=== PATIENT | female | born 1950 | race Caucasian/White ===

== ENCOUNTER → 2016-07-15 | Outpatient (CLI) | payer BC, OTHER ==
[~2016-07-15] MED LIST: ADVIN25/60 INH; AGG PO; ALBUAER19 INH; ALL180 PO; ATEN50TA8 PO; CLB/200 PO; CRS/10 PO; ESCI1TAB10 PO; EZET10TA47 PO; FLNIN NAE; GLC500 PO; INSDGI SQ; IPRA0.03 NAE; LEVO75TA36 PO; LIOT5TAB PO; LOSA100T2 PO; MONT1TAB3 PO; MULTTAB5 PO; NITR1CAP33 PO; NVLGI SC; PRLSR20 PO; SITA1TAB27 PO; SPIR50TA2 PO; TIOTCAP INH
[2016-07-15 12:37] LABS: HEMATOCRIT 38.2 % (37-47); MEAN CELL VOLUME 87.2 fL (80-100); MEAN CORPUSCULAR HEMOGLOBIN 27.2 pg (25-34); MEAN CORPUSCULAR HGB CONC 31.2 g/dl (32-36); MEAN PLATELET VOLUME 10.2 fL (7.4-10.4); PLATELET COUNT 118 K/uL (130-400); RED BLOOD COUNT 4.38 M/uL (4.2-5.4); WHITE BLOOD COUNT 5.57 K/uL (4.8-10.8)
[2016-07-15 13:11] LABS: ESTIMATED AVERAGE GLUCOSE 209 mg/dl; HA1C FLAG Normal (Normal)
[2016-07-15 13:22] LABS: CALCIUM 9.4 mg/dl (8.5-10.1)
[2016-07-15 13:27] LABS: BLOOD UREA NITROGEN 34 mg/dl (7-18); BUN/CREATININE RATIO 20.2 (10-20); CARBON DIOXIDE 27 mmol/L (21-32); CHLORIDE 106 mmol/L (98-107); GLUCOSE 87 mg/dl (70-99); POTASSIUM 4.7 mmol/L (3.5-5.1); SODIUM 141 mmol/L (136-145)
[2016-07-15 13:28] LABS: PHOSPHORUS 3.4 mg/dl (2.5-4.9)
[2016-07-15 14:59] LABS: URINE APPEARANCE CLEAR (CLEAR); URINE BILIRUBIN NEG (NEG); URINE COLOR YELLOW; URINE NITRITE NEG (NEG); URINE PH 5.5 (4.5-7.5); URINE SPECIFIC GRAVITY 1.017 (1.000-1.030); UROBILINOGEN NEG (NEG)
[2016-07-15 15:14] LABS: MANUAL MICROSCOPIC REQUIRED? NO; REVIEW REQ? NO
[2016-07-15 15:26] LABS: URINE PROTIEN/CREAT RATIO 0.2 (0-0.2); URINE TOTAL PROTEIN 19.3 mg/dl (0-11.9)
== END | disposition home or self-care (01) ==
LOC: C.LAB1850 11:25
PROVIDERS: ATTEND Nurse Practitioner Adult Health
DX: E11.29 Type 2 diabetes mellitus with other diabetic kidney complication (principal)

== ENCOUNTER → 2016-08-02 | Outpatient (CLI) | payer OTHER ==
--- NOTE | 2016-08-02 08:00 | MAMMOGRAPHY REPORT ---
BILATERAL DIGITAL SCREENING MAMMOGRAM WITH CAD: 08/02/2016 TECHNIQUE: Current study was also evaluated with a Computer Aided Detection (CAD) system. Bilateral CC and MLO views were obtained. COMPARISON: Comparison is made to exams dated: 08/08/2015 mammogram, 08/08/2015 ultrasound, 08/01/2015 mammogram, 07/28/2014 mammogram, 07/26/2013 mammogram, and 07/22/2012 mammogram - [facility]. BREAST COMPOSITION: The tissue of both breasts is heterogeneously dense, which may obscure small mas ses. FINDINGS: No suspicious masses, calcifications, or areas of architectural distortion are noted in ei ther breast. There has been no significant interval change compared to prior exams. Bilateral benign -appearing calcifications are not significantly changed. IMPRESSION: ACR BI-RADS CATEGORY 2: BENIGN There is no mammographic evidence of malignancy. A 1 year screening mammogram is recommended. The pa tient will receive written notification of the results. Approximately 10% of breast cancers are not detected with mammography. A negative mammographic report should not delay biopsy if a clinically suggestive mass is present. Felisha Oliveira M.D. /:08/02/2016 07:50:21 Sponge Diver: Kimberly BERNARD(Yesy)(M), [facility] letter sent: Normal 1/2 BI-RADS Code: ACR BI-RADS Category 2: Benign
== END | disposition home or self-care (01) ==
LOC: C.MAMM 07:27
PROVIDERS: ATTEND Family Medicine
DX: Z12.31 Encounter for screening mammogram for malignant neoplasm of breast (principal)

== ENCOUNTER → 2016-11-07 | Outpatient (CLI) | payer OTHER ==
[2016-11-07 17:59] LABS: MEAN CELL VOLUME 83.1 fL (80-100); MEAN CORPUSCULAR HEMOGLOBIN 25.7 pg (25-34); MEAN CORPUSCULAR HGB CONC 30.9 g/dl (32-36); MEAN PLATELET VOLUME 10.1 fL (7.4-10.4); PLATELET COUNT 127 K/uL (130-400); RED BLOOD COUNT 3.97 M/uL (4.2-5.4)
[2016-11-07 18:01] LABS: PARTIAL THROMBOPLASTIN RATIO 1.1
[2016-11-07 18:19] LABS: ALT/SGPT 35 U/L (12-78); AST/SGOT 34 U/L (15-37); BLOOD UREA NITROGEN 39 mg/dl (7-18); BUN/CREATININE RATIO 17.8 (10-20); CALCIUM 8.4 mg/dl (8.5-10.1); CARBON DIOXIDE 20 mmol/L (21-32); CHLORIDE 105 mmol/L (98-107); CHOLESTEROL 116 mg/dl (0-200); POTASSIUM 4.9 mmol/L (3.5-5.1); SODIUM 136 mmol/L (136-145)
[2016-11-07 18:20] LABS: URINE APPEARANCE CLEAR (CLEAR); URINE BILIRUBIN NEG (NEG); URINE EPITHELIAL CELL AUTO 20-30 /lpf (0-5); URINE NITRITE NEG (NEG); URINE SPECIFIC GRAVITY 1.019 (1.000-1.030); UROBILINOGEN NEG (NEG)
[2016-11-07 18:27] LABS: MANUAL MICROSCOPIC REQUIRED? NO; REVIEW REQ? NO
[2016-11-07 18:29] LABS: CHOLESTEROL/HDL RATIO 3.6; HDL CHOLESTEROL 32 mg/dl; LDL CHOLESTEROL CALCULATED 21 mg/dl; TRIGLYCERIDES 313 mg/dl (0-150); VERY LOW DENSITY LIPOPROT CALC 63 mg/dl
[2016-11-11 09:58] LABS: PROTHROMBIN TIME (PATIENT) 10.9 SECONDS (9.0-12.0)
[2016-11-11 09:59] LABS: URINE COLOR DK YELLOW; WHITE BLOOD COUNT 6.13 K/uL (4.8-10.8)
[2016-11-11 10:00] LABS: GLUCOSE 168 mg/dl (70-99)
== END | disposition home or self-care (01) ==
LOC: C.LABMFLN 14:13
PROVIDERS: ATTEND Internal Medicine Cardiovascular Disease
DX: E03.9 Hypothyroidism, unspecified (principal); K76.0 Fatty (change of) liver, not elsewhere classified; E11.29 Type 2 diabetes mellitus with other diabetic kidney complication; Z79.4 Long term (current) use of insulin; I25.10 Atherosclerotic heart disease of native coronary artery without angina pectoris; I20.8 Other forms of angina pectoris; R07.9 Chest pain, unspecified; N18.3 Chronic kidney disease, stage 3 (moderate)

== ENCOUNTER → 2016-11-12 | Outpatient (CLI) | payer OTHER ==
--- NOTE | 2016-11-12 11:43 | DIAGNOSTIC IMAGING REPORT ---
Right knee 3 views CLINICAL HISTORY: Right knee pain COMPARISON STUDY: None. FINDINGS: No fracture or dislocation. No significant knee effusion. Soft tissues are within normal limits. Moderate osteoarthritis at the medial compartment and mild osteoarthritis at the lateral compartment. Severe osteoarthritis at the patellofemoral compartment. IMPRESSION: No fracture or dislocation within the right knee. Tricompartmental osteoarthritis as described above. Electronically signed by: Oskar Walsh M.D. 11/12/2016 11:42 AM Dictated Date/Time: 11/12/2016 11:40 AM
--- NOTE | 2016-11-17 10:10 | CODING QUERY NO DIAGNOSIS ---
TREATMENT RENDERED WITHOUT A DIAGNOSIS To promote full compliance with coding requirements relating to patient care, physician participation is requested in all cases of insurance coder uncertainty. Please assist us with providing a diagnosis/symptom for the test(s) below: A diagnosis/symptom was not documented on your Order. A valid diagnosis/symptom is required to bill all insurances. Please remember that we are unable to code a diagnosis of rule out, probable, possible, questionable, or suspected. Tests that require a diagnosis: * X-RAY KNEE DIAGNOSIS: * DOS: 11/12/16 Provider Signature: Date: Thank you Josie Dias Health Information Management Once completed, please kindly fax back to [phone] For questions please call [phone]
== END | disposition home or self-care (01) ==
LOC: C.RAD 10:58
PROVIDERS: ATTEND Nurse Practitioner Adult Health
DX: M25.569 Pain in unspecified knee (principal); W19.XXXA Unspecified fall, initial encounter

== ENCOUNTER → 2016-11-13 | Outpatient (CLI) | payer OTHER ==
[2016-11-13 18:00] LABS: BLOOD UREA NITROGEN 25 mg/dl (7-18); BUN/CREATININE RATIO 17.6 (10-20); CALCIUM 8.6 mg/dl (8.5-10.1); CARBON DIOXIDE 27 mmol/L (21-32); CHLORIDE 107 mmol/L (98-107); GLUCOSE 115 mg/dl (70-99); POTASSIUM 4.7 mmol/L (3.5-5.1); SODIUM 140 mmol/L (136-145)
== END ==
LOC: C.LABMFLN 13:01
PROVIDERS: ATTEND Nurse Practitioner Adult Health
DX: I12.9 Hypertensive chronic kidney disease with stage 1 through stage 4 chronic kidney disease, or unspecified chronic kidney disease (principal); N18.3 Chronic kidney disease, stage 3 (moderate)

== ENCOUNTER → 2016-11-21 | Outpatient (CLI) | payer OTHER ==
[2016-11-21 17:50] LABS: HEMATOCRIT 33.8 % (37-47); MEAN CELL VOLUME 82.4 fL (80-100); MEAN CORPUSCULAR HEMOGLOBIN 26.3 pg (25-34); MEAN PLATELET VOLUME 10.3 fL (7.4-10.4); PLATELET COUNT 116 K/uL (130-400); WHITE BLOOD COUNT 3.76 K/uL (4.8-10.8)
[2016-11-21 18:40] LABS: TOTAL IRON BINDING CAPACITY 447 mcg/dl (250-450)
== END | disposition home or self-care (01) ==
LOC: C.LABMFLN 11:57
PROVIDERS: ATTEND Internal Medicine Cardiovascular Disease
DX: D64.9 Anemia, unspecified (principal)

== ENCOUNTER → 2016-11-22 | Outpatient (CLI) | payer OTHER ==
[~2016-11-22] MED LIST changes: +REGADENOSON 0.4 MG/5 ML SYR ONE
--- NOTE | 2016-11-22 17:32 | Myocardial Perfusion Study ---
Myocardial Perfusion Study Rpt Myocardial Perfusion Study Rpt Date of Service 11/22/16 Myocardial Perfusion Study Rpt Procedure: 1. Myocardial perfusion study performed in multiple views/images 2. Lexiscan pharmacologic stress ECG Indications: 1. CAD 2. ANGINA Consent: Informed written consent was obtained prior to the procedure. Ordering physician: Dr. Bennett Procedural details: For the stress portion of the study, Lexiscan 0.4 mg was intravenously administered followed by a saline flush. This was followed by 31.3 mCi of technetium 99m Cardiolite, injected at 1:30 p.m. on 11/22/2016. 30 minutes following the injection, imaging of the heart was performed in multiple projections. For the rest portion of the study, 10.9 mCi technetium 99m Cardiolite was injected intravenously at 11:30 a.m. on 11/22/2016. 1 hour following the injection, imaging of the heart was performed in the same projections. Lexiscan stress ECG: Resting ECG demonstrated: Sinus rhythm with sinus arrhythmia 63 bpm. Maximum heart rate: 82 bpm Resting blood pressure: 126/60 mmHg Maximum blood pressure: 126/60 mmHg Maximal, age-predicted heart rate: 52 % Significant ST changes: None Arrhythmia: None Symptoms: Chest pain Findings: Rotating raw imaging demonstrated no significant lung uptake. There is no significant motion artifact. Heart size appeared normal. Myocardial perfusion demonstrated small area of mildly reduced uptake involving the distal anteroseptum which appeared to be fixed in post stress and rest imaging. There were no significant reversible defects noted to suggest ischemia. Ejection fraction: 65 % Wall motion: Normal No significant transient ischemic dilation. Impression: 1. No ischemic changes were noted. 2. Small distal anteroseptal fixed defect may represent small infarct. Wall motion appeared normal and thus cannot rule out attenuation artifact. 3. Normal left ventricular systolic function. EF 65%. 4. No arrhythmia. 5. Lexiscan induced chest pain. 6. Nondiagnostic Lexiscan ECG.
== END | disposition home or self-care (01) ==
LOC: C.NUCL 10:55
PROVIDERS: ATTEND Internal Medicine Cardiovascular Disease
DX: I20.8 Other forms of angina pectoris (principal); I25.10 Atherosclerotic heart disease of native coronary artery without angina pectoris

== ENCOUNTER → 2016-11-27 | Outpatient (CLI) | payer OTHER ==
[~2016-11-27] MED LIST changes: -REGADENOSON 0.4 MG/5 ML SYR ONE
[2016-11-27 17:57] LABS: BLOOD UREA NITROGEN 22 mg/dl (7-18); CALCIUM 8.7 mg/dl (8.5-10.1); CARBON DIOXIDE 23 mmol/L (21-32); CHLORIDE 112 mmol/L (98-107); CREATININE 1.54 mg/dl (0.60-1.20); GLUCOSE 169 mg/dl (70-99); POTASSIUM 4.8 mmol/L (3.5-5.1); SODIUM 142 mmol/L (136-145)
[2016-11-27 17:58] LABS: PHOSPHORUS 3.4 mg/dl (2.5-4.9)
== END | disposition home or self-care (01) ==
LOC: C.LABMFLN 12:23
PROVIDERS: ATTEND Internal Medicine Nephrology
DX: N17.9 Acute kidney failure, unspecified (principal)

== ENCOUNTER → 2016-12-23 | Outpatient (CLI) | payer OTHER ==
[2016-12-23 18:29] LABS: BLOOD UREA NITROGEN 20 mg/dl (7-18); BUN/CREATININE RATIO 13.9 (10-20); CALCIUM 8.9 mg/dl (8.5-10.1); CARBON DIOXIDE 27 mmol/L (21-32); CHLORIDE 106 mmol/L (98-107); CREATININE 1.45 mg/dl (0.60-1.20); GLUCOSE 123 mg/dl (70-99); POTASSIUM 4.1 mmol/L (3.5-5.1); SODIUM 143 mmol/L (136-145)
[2016-12-23 18:30] LABS: PHOSPHORUS 3.7 mg/dl (2.5-4.9)
== END | disposition home or self-care (01) ==
LOC: C.LABMFLN 14:42
PROVIDERS: ATTEND Internal Medicine Nephrology
DX: N18.3 Chronic kidney disease, stage 3 (moderate) (principal)

== ENCOUNTER → 2017-01-13 | Outpatient (CLI) | payer OTHER ==
[2017-01-13 12:59] LABS: URINE APPEARANCE CLEAR (CLEAR); URINE BILIRUBIN NEG (NEG); URINE COLOR YELLOW; URINE NITRITE NEG (NEG); URINE SPECIFIC GRAVITY 1.016 (1.000-1.030); UROBILINOGEN NEG (NEG)
[2017-01-13 13:09] LABS: MANUAL MICROSCOPIC REQUIRED? NO; REVIEW REQ? NO
[2017-01-13 13:17] LABS: BLOOD UREA NITROGEN 35 mg/dl (7-18); BUN/CREATININE RATIO 21.7 (10-20); CALCIUM 9.3 mg/dl (8.5-10.1); CARBON DIOXIDE 27 mmol/L (21-32); CHLORIDE 105 mmol/L (98-107); CREATININE 1.63 mg/dl (0.60-1.20); GLUCOSE 115 mg/dl (70-99); PHOSPHORUS 3.5 mg/dl (2.5-4.9); POTASSIUM 4.9 mmol/L (3.5-5.1); SODIUM 138 mmol/L (136-145)
[2017-01-13 13:55] LABS: URINE PROTIEN/CREAT RATIO 0.3 (0-0.2); URINE TOTAL PROTEIN 26.5 mg/dl (0-11.9)
== END | disposition home or self-care (01) ==
LOC: C.LABMFLN 10:16
PROVIDERS: ATTEND Internal Medicine Nephrology
DX: N18.3 Chronic kidney disease, stage 3 (moderate) (principal)

== ENCOUNTER → 2017-01-15 | Outpatient (CLI) | payer OTHER ==
--- NOTE | 2017-01-15 13:24 | DIAGNOSTIC IMAGING REPORT ---
NUCLEAR GASTRIC EMPTYING STUDY: CLINICAL HISTORY: K31.84 [id number] COMPARISON STUDY: None TECHNIQUE: Following the oral administration of 1.1 mCi of technetium 99m sulfur colloid in egg sandwich and 8 ounces of water, static abdominal images are performed anteriorly and posteriorly at 0 minutes, 1 hour, 2 hours, and 4 hour time intervals. Gastric emptying was calculated utilizing the geometric mean method. FINDINGS: There is approximately 78 % gastric activity remaining at the 1 hour time interval, 48 % at the 2 hour time interval (normal is less than 60%), and 8 % remaining at the 4 hour time interval (normal is less than 10%). These findings are consistent with a normal study IMPRESSION: Findings are consistent with a normal study Electronically signed by: Adam Montoya M.D. 01/15/2017 1:23 PM Dictated Date/Time: 01/15/2017 1:22 PM
== END | disposition home or self-care (01) ==
LOC: C.NUCL 08:32
PROVIDERS: ATTEND Physician Assistant
DX: K31.84 Gastroparesis (principal)

== ENCOUNTER → 2017-03-05 | Day surgery (SDC) | payer OTHER ==
[2017-01-20 08:56] VITALS: BMI 38.0
[~2017-03-05] VITALS: Ht 157.5 cm; Wt 95.9 kg
[~2017-03-05] MED LIST changes: -ADVIN25/60 INH; +ALBUAER INH; -ALBUAER19 INH; -ALL180 PO; +ATEN-173 PO; -ATEN50TA8 PO; +CALC-354 PO; -CLB/200 PO; -CRS/10 PO; +CYAN10005 PO; +CYCL0.052 OPB; -FLNIN NAE; +GABA-113 PO; -GLC500 PO; -INSDGI SQ; +INSPMPNVLG; +ISOS60TA25 PO; +LEVA1.258 INH; -LEVO75TA36 PO; +LEVO88TA3 PO; +LIDOCAINE HCL 2% 2 ML VIAL (20MG/ML) ONE; -LIOT5TAB PO; -LOSA100T2 PO; +LOSA50TA36 PO; +MIDAZOLAM HCL 1 MG/ML 2ML VIAL ONE; -MULTTAB5 PO; +NTRGSL/4 UT; -NVLGI SC; +OMEP40CA41 PO; +ONDANSETRON INJ 2 MG/ML 2 ML VIAL ONE; -PRLSR20 PO; +PROPOFOL IV EMULSION 10 MG/ML 20 ML VIAL IV ONE; +ROSU40TA PO; -SITA1TAB27 PO; +SODIUM CHLORIDE 0.9% 500ML 500 ML IV ONE; +SPRIN/30 INH; +SYMIN160 INH; -TIOTCAP INH; +TRAM-10 PO; +TRAZ50TA35 PO
[2017-03-05 11:33] VITALS: Ht 157.5 cm; Wt 95.9 kg
--- NOTE | 2017-03-05 11:53 | Endo History and Physical ---
History & Physical Date of Service: Mar 05, 2017. Chief Complaint: GASTROPARESIS Referring Physician: History of Present Illness 67 yo CF who presents for EGD secondary to Gastroparesis and epigastric abdominal pain. Past Medical History Diabetes, Angioplasty/Stent, Asthma, ASHD, Gastrointestinal Disorder, High Cholesterol, Sleep Apnea, CABG, Heart Disease, Hypertension, Valve Replacement Past Surgical History Hx Internal Defibrillator: No Hx Pacemaker: No Hx Abdominal Surgery: No Hx of Implantable Prosthesis: No Hx Post-Op Nausea and Vomiting: Yes (WITH GA) Hx Cancer Surgery: No Hx Thoracic Surgery: No Hx Orthopedic: Yes (LT TKA, LT/RT CTR) Hx Urinary Tract Surgery: No Family History None Social History Smoking Status: Never Smoker Hx Substance Use: No Hx Alcohol Use: No Allergies Coded Allergies: Levofloxacin (Verified Allergy, Intermediate, rash, 01/20/17) Enalapril (Verified Allergy, Unknown, DRY COUGH, 03/05/17) Insulin Detemir (Verified Allergy, Unknown, HIVES, 03/05/17) Phenol (Verified Allergy, Unknown, HIVES, 03/05/17) Ketorolac Tromethamine (Verified Adverse Reaction, Intermediate, nausea/ vomiting, 03/05/17) Current Medications Reported Home Medications Medications Dose Route/Sig Max Daily Dose Days Date Category Dose Instructions Restasis (Cyclosporine (Ophth)) 0.05 % Emu 1 Drop OPB BID 01/20/17 Reported Vitamin B-12 (Cyanocobalamin) 1,000 Mcg Tab 1,000 Mcg PO QAM 01/20/17 Reported Trazodone (Trazodone HCl) 50 Mg Tab 0.5 Tab PO HS 01/20/17 Reported Ultram (Tramadol HCl) 50 Mg Tab 50 Mg PO Q4H PRN 01/20/17 Reported Symbicort 160/4.5 Inhaler (Budesonide/Formoterol Fumarate) Aero 2 Puffs INH BID 01/20/17 Reported Spiriva Handihaler (Tiotropium [place]) 30 Puff/540 Mcg Aerp 1 Cap INH QAM 01/20/17 Reported Proventil Hfa (Albuterol Sulfate) 108 Mcg/Act Aer 1-2 Puffs INH Q4-6H PRN 01/20/17 Reported Prilosec (Omeprazole) 40 Mg Cap 40 Mg PO QAM 01/20/17 Reported novoLOG INSULIN PUMP (Insulin Aspart) 1 Ea Inj 1 Ea N/A UD 01/20/17 Reported Nitrostat (Nitroglycerin) 0.4 Mg Tab 0.4 Mg UT UD PRN 01/20/17 Reported Levothyroxine Sodium 88 Mcg Tab 1 Tab PO QAM 01/20/17 Reported Levalbuterol Hcl 1.25 Mg/3 Ml Neb 1 Dose INH TID 01/20/17 Reported Imdur Ext Rel (Isosorbide Mononitrate) 60 Mg Ertab 60 Mg PO QAM 01/20/17 Reported Neurontin (Gabapentin) 300 Mg Cap 300 Mg PO TID 01/20/17 Reported Caltrate 600+D (Calcium Carbonate-Cholecalcife) 1 Tab Tab 1 Tab PO QAM 01/20/17 Reported Losartan Potassium/Hydroc (Losartan Potassium & Hydrochlo) 1 Tab Tab 0.5 Tab PO QAM 01/20/17 Reported 100MG/12.5MG Crestor (Rosuvastatin Calcium) 40 Mg Tab 40 Mg PO QAM 01/20/17 Reported Tenormin (Atenolol) 25 Mg Tab 25 Mg PO QAM 01/20/17 Reported Zetia (Ezetimibe) 10 Mg Tab 10 Mg PO QAM 07/20/13 Reported Macrodantin (Nitrofurantoin Macrocrystals) 50 Mg Cap 50 Mg PO QAM 10/31/12 Reported Ipratropium [place] (Ipratropium [place] (Nasal)) 0.03 % Spr 1 [place] GARIMA ACHS PRN 10/31/12 Reported Lexapro (Escitalopram Oxalate) 20 Mg Tab 0.5 Tab PO QPM 10/31/12 Reported Aggrenox 200MG/25MG (Aspirin-Dipyridamole 25MG/200MG) 1 Cap Cap 1 Cap PO BID 10/31/12 Reported Singulair (Montelukast Sodium) 10 Mg Tab 10 Mg PO QAM 10/31/12 Reported Aldactone (Spironolactone) 50 Mg Tab 50 Mg PO AM 05/08/06 Reported Vital Signs Weight (Kilograms): 95.91 Height (Feet): 5 Height (Inches): 2 Date Time Temp Pulse Resp B/P (MAP) Pulse Ox O2 Delivery O2 Flow Rate FiO2 03/05/17 11:45 36.8 56 20 151/69 (96) 97 Room Air Physical Exam General Appearance: WD/WN, no apparent distress Respiratory/Chest: Auscultation: breath sounds normal Cardiovascular: Heart Auscultation: RRR Abdomen: Bowel Sounds: normal Inspection & Palpation: soft, non-distended, no tenderness, guarding & rebound Assessment and Plan Assessment: 67 yo CF who presents for EGD secondary to Gastroparesis and epigastric abdominal pain. Plan: Proceed with EGD.
--- NOTE | 2017-03-05 12:17 | GI REPORT ---
Procedure Date: 03/05/2017 12:00 PM Procedure: Upper GI endoscopy Indications: Epigastric abdominal pain, Gastroparesis Medicines: Monitored Anesthesia Care Complications: No immediate complications. Estimated Blood Loss: Estimated blood loss: none. Procedure: Pre-Anesthesia Assessment: - Prior to the procedure, a History and Physical was performed, and patient medications and allergies were reviewed. The patient's tolerance of previous anesthesia was also reviewed. The risks and benefits of the procedure and the sedation options and risks were discussed with the patient. All questions were answered, and informed consent was obtained. Prior Anticoagulants: The patient has taken aspirin, last dose was 3 days prior to procedure. ASA Grade Assessment: III - A patient with severe systemic disease. After reviewing the risks and benefits, the patient was deemed in satisfactory condition to undergo the procedure. After obtaining informed consent, the endoscope was passed under direct vision. Throughout the procedure, the patient's blood pressure, pulse, and oxygen saturations were monitored continuously. The scope was introduced through the mouth, and advanced to the second part of duodenum. The upper GI endoscopy was accomplished without difficulty. The patient tolerated the procedure well. Findings: The esophagus was normal. Localized mild inflammation characterized by erythema was found in the gastric antrum. Biopsies were taken with a cold forceps for histology. The examined duodenum was normal. Impression: - Normal esophagus. - Gastritis. Biopsied. - Normal examined duodenum. Recommendation: - Resume previous diet. - Continue present medications. - Await pathology results. - Return to primary care physician as previously scheduled. Da Polk, DO 03/05/2017 12:17:13 PM This report has been signed electronically. Note Initiated On: 03/05/2017 12:00 PM I attest to the content of the Intraoperative Record and orders documented therein, exceptions below
--- NOTE | 2017-03-05 12:18 | Discharge Instructions ---
Endoscopy Patient Instructions Date / Procedure(s) Performed Mar 05, 2017. EGD Allergy Information Coded Allergies: Levofloxacin (Verified Allergy, Intermediate, rash, 01/20/17) Enalapril (Verified Allergy, Unknown, DRY COUGH, 03/05/17) Insulin Detemir (Verified Allergy, Unknown, HIVES, 03/05/17) Phenol (Verified Allergy, Unknown, HIVES, 03/05/17) Ketorolac Tromethamine (Verified Adverse Reaction, Intermediate, nausea/ vomiting, 03/05/17) Discharge Date / Findings Mar 05, 2017. Gastritis s/p biopsies Medication Instructions Stopped Medication(s): ONLY TOOK BP PILLS OK to resume all medications today as prescribed Reported Home Medications Medications Dose Route/Sig Max Daily Dose Days Date Category Dose Instructions Restasis (Cyclosporine (Ophth)) 0.05 % Emu 1 Drop OPB BID 01/20/17 Reported Vitamin B-12 (Cyanocobalamin) 1,000 Mcg Tab 1,000 Mcg PO QAM 01/20/17 Reported Trazodone (Trazodone HCl) 50 Mg Tab 0.5 Tab PO HS 01/20/17 Reported Ultram (Tramadol HCl) 50 Mg Tab 50 Mg PO Q4H PRN 01/20/17 Reported Symbicort 160/4.5 Inhaler (Budesonide/Formoterol Fumarate) Aero 2 Puffs INH BID 01/20/17 Reported Spiriva Handihaler (Tiotropium [place]) 30 Puff/540 Mcg Aerp 1 Cap INH QAM 01/20/17 Reported Proventil Hfa (Albuterol Sulfate) 108 Mcg/Act Aer 1-2 Puffs INH Q4-6H PRN 01/20/17 Reported Prilosec (Omeprazole) 40 Mg Cap 40 Mg PO QAM 01/20/17 Reported novoLOG INSULIN PUMP (Insulin Aspart) 1 Ea Inj 1 Ea N/A UD 01/20/17 Reported Nitrostat (Nitroglycerin) 0.4 Mg Tab 0.4 Mg UT UD PRN 01/20/17 Reported Levothyroxine Sodium 88 Mcg Tab 1 Tab PO QAM 01/20/17 Reported Levalbuterol Hcl 1.25 Mg/3 Ml Neb 1 Dose INH TID 01/20/17 Reported Imdur Ext Rel (Isosorbide Mononitrate) 60 Mg Ertab 60 Mg PO QAM 01/20/17 Reported Neurontin (Gabapentin) 300 Mg Cap 300 Mg PO TID 01/20/17 Reported Caltrate 600+D (Calcium Carbonate-Cholecalcife) 1 Tab Tab 1 Tab PO QAM 01/20/17 Reported Losartan Potassium/Hydroc (Losartan Potassium & Hydrochlo) 1 Tab Tab 0.5 Tab PO QAM 01/20/17 Reported 100MG/12.5MG Crestor (Rosuvastatin Calcium) 40 Mg Tab 40 Mg PO QAM 01/20/17 Reported Tenormin (Atenolol) 25 Mg Tab 25 Mg PO QAM 01/20/17 Reported Zetia (Ezetimibe) 10 Mg Tab 10 Mg PO QAM 07/20/13 Reported Macrodantin (Nitrofurantoin Macrocrystals) 50 Mg Cap 50 Mg PO QAM 10/31/12 Reported Ipratropium [place] (Ipratropium [place] (Nasal)) 0.03 % Spr 1 [place] GARIMA ACHS PRN 10/31/12 Reported Lexapro (Escitalopram Oxalate) 20 Mg Tab 0.5 Tab PO QPM 10/31/12 Reported Aggrenox 200MG/25MG (Aspirin-Dipyridamole 25MG/200MG) 1 Cap Cap 1 Cap PO BID 10/31/12 Reported Singulair (Montelukast Sodium) 10 Mg Tab 10 Mg PO QAM 10/31/12 Reported Aldactone (Spironolactone) 50 Mg Tab 50 Mg PO AM 05/08/06 Reported Provider Instructions Activity Restrictions - No exercising or heavy lifting for 24 hours. - Do not drink alcohol the day of the procedure. - Do not drive a car or operate machinery until the day after the procedure. - Do not make any important decisions or sign important papers in 24 hours after the procedure. Following Day: - Return to full activity which may include returning to work/school. Diet Start your diet with liquids and light foods (jello, soup, juice, toast). Then eat your usual diet if not nauseated. Treatment For Common After Affects For mild abdominal pain, bloating, or excessive gas: - Rest - Eat lightly - Lie on right side Follow-Up Information Follow-up with as scheduled Anesthesia Information What You Should Know You have had a procedure that required some medicine to reduce anxiety and discomfort. This treatment is called moderate sedation. After receiving the treatment, you may be sleepy, but you will be able to breathe on your own. The effects of the treatment may last for several hours. Follow these instructions along with Activity/Diet recommendations noted above: * Do NOT do anything where dizziness or clumsiness would be dangerous. * Rest quietly at home today, then you can be up and about tomorrow. * Have a responsible person stay with you the rest of today. * You may have had an I.V. today. If so, you may take the dressing off later today. Recommendations Call your doctor if: * Trouble breathing * Continuous vomiting for more than 24 hours * Temperature above 101 degrees * Severe abdominal pain or bloating * Pain not relieved by pain medicine ordered * There is increased drainage or redness from any incision * A large amount of rectal bleeding greater than 2-3 tablespoons. (If you had a polyp/s removed or have hemorrhoids, a small amount of blood - from the rectum is to be expected.) * You have any unanswered questions or concerns. IN THE EVENT OF A SERIOUS EMERGENCY, GO TO THE NEAREST EMERGENCY ROOM Your discharge instructions were prepared by provider Da Polk. Patient Instructions Signature Page Nat Kaur Patient (or Guardian) Signature/Date: I have read and understand the instructions given to me by my caregivers. Caregiver/RN/Doctor Signature/Date: The above-named patient and/or guardian has received patient instructions on this date. + Original Patient Signature Page (only) stays with chart. Please make copy for patient.
--- NOTE | 2017-03-05 12:43 | Anesthesiology Progress Note ---
Anesthesia Post Op Note Date & Time Mar 05, 2017 at 12:42 Vital Signs Pain Intensity: 0 Vital Signs Past 12 Hours Date Time Temp Pulse Resp B/P (MAP) Pulse Ox O2 Delivery O2 Flow Rate FiO2 03/05/17 12:30 50 18 126/62 (83) 94 Room Air 03/05/17 12:15 52 18 115/56 (75) 95 Room Air 03/05/17 11:45 36.8 56 20 151/69 (96) 97 Room Air Notes Mental Status: alert / awake / arousable, participated in evaluation Pt Amnestic to Procedure: Yes Nausea / Vomiting: adequately controlled Pain: adequately controlled Airway Patency, RR, SpO2: stable & adequate BP & HR: stable & adequate Hydration State: stable & adequate Anesthetic Complications: no major complications apparent
[2017-03-05 12:45] VITALS: BP 124/53; PULSE 46; O2SAT 96
== END | disposition home or self-care (01) ==
LOC: C.GI 11:10
PROVIDERS: ATTEND Internal Medicine
DX: K29.60 Other gastritis without bleeding (principal); K31.84 Gastroparesis; J45.909 Unspecified asthma, uncomplicated; G47.33 Obstructive sleep apnea (adult) (pediatric); E11.22 Type 2 diabetes mellitus with diabetic chronic kidney disease; N18.9 Chronic kidney disease, unspecified; I25.10 Atherosclerotic heart disease of native coronary artery without angina pectoris; Z96.652 Presence of left artificial knee joint; Z98.890 Other specified postprocedural states; Z95.1 Presence of aortocoronary bypass graft

== ENCOUNTER → 2017-04-23 | Outpatient (CLI) | payer OTHER ==
[~2017-04-23] MED LIST changes: -LIDOCAINE HCL 2% 2 ML VIAL (20MG/ML) ONE; -MIDAZOLAM HCL 1 MG/ML 2ML VIAL ONE; -ONDANSETRON INJ 2 MG/ML 2 ML VIAL ONE; -PROPOFOL IV EMULSION 10 MG/ML 20 ML VIAL IV ONE; -SODIUM CHLORIDE 0.9% 500ML 500 ML IV ONE
[2017-04-23 13:19] LABS: HEMOGLOBIN A1C 8.8 % (4.5-5.6)
== END | disposition home or self-care (01) ==
LOC: C.LABMFLN 09:13
PROVIDERS: ATTEND Nurse Practitioner Adult Health
DX: E11.29 Type 2 diabetes mellitus with other diabetic kidney complication (principal)

== ENCOUNTER → 2017-04-25 | Outpatient (CLI) | payer OTHER ==
--- NOTE | 2017-04-25 11:07 | DIAGNOSTIC IMAGING REPORT ---
CHEST 2 VIEWS ROUTINE CLINICAL HISTORY: Shortness of breath on exertion. Asthma. COMPARISON STUDY: Chest radiograph February 23, 2014. FINDINGS: Lung volumes are normal. No pneumothorax or pleural effusion is present. Median sternotomy wires are noted. There is mild cardiomegaly without evidence for pulmonary edema. A few nodular densities project of the right lower lung are unchanged and may be related to the pleura/chest wall IMPRESSION: No acute cardiopulmonary findings. Stable cardiomegaly. Electronically signed by: Navid Rhodes M.D. 04/25/2017 11:05 AM Dictated Date/Time: 04/25/2017 11:04 AM
== END | disposition home or self-care (01) ==
LOC: C.RAD1850 10:27
PROVIDERS: ATTEND Nurse Practitioner
DX: R06.02 Shortness of breath (principal)

== ENCOUNTER → 2017-05-05 | Outpatient (CLI) | payer OTHER ==
[2017-05-05 13:50] LABS: ALBUMIN 3.8 gm/dl (3.4-5.0); ALKALINE PHOSPHATASE 111 U/L (45-117); ALT/SGPT 41 U/L (12-78); AST/SGOT 28 U/L (15-37); BLOOD UREA NITROGEN 33 mg/dl (7-18); CALCIUM 8.7 mg/dl (8.5-10.1); CARBON DIOXIDE 25 mmol/L (21-32); CREATININE 1.76 mg/dl (0.60-1.20); GLUCOSE 67 mg/dl (70-99); POTASSIUM 4.7 mmol/L (3.5-5.1); SODIUM 140 mmol/L (136-145); TOTAL PROTEIN 7.5 gm/dl (6.4-8.2)
== END | disposition home or self-care (01) ==
LOC: C.LABMFLN 10:15
PROVIDERS: ATTEND Internal Medicine
DX: R14.0 Abdominal distension (gaseous) (principal)

== ENCOUNTER 2019-05-03 12:26 | Inpatient (IN) ==
[2019-05-03] MEDS ORDERED: SODIUM CHLORIDE 0.9% 500 ML IV ONE (13:10)
[2019-05-03] MEDS ORDERED: ALBUT/IPRATROP 3MG/0.5MG NEB 3 ML VIAL NEB ONE (13:10)
[2019-05-03] MEDS ORDERED: DEXAMETHASONE SOD PHOSPHATE 10 MG in SYRINGE 0 ML IV STA (13:10)
[2019-05-03 13:31] LABS: Eosinophils # (auto) 0.02 K/uL (0-0.5); Eosinophils % (auto) 0.5 %; Hematocrit (blood only) 31.9 % (37-47); Hemoglobin 10.1 g/dL (12.0-16.0); Immature Granulocytes # (auto) 0.02 K/uL (0.00-0.02); Immature Granulocytes % (auto) 0.5 %; Lymphocytes # (auto) 0.78 K/uL (1.2-3.4); Lymphocytes % (auto) 19.6 %; Mean Corpuscular Hemoglobin 29.9 pg (25-34); Mean Corpuscular Hgb Conc 31.7 g/dL (32-36); Mean Corpuscular Volume 94.4 fL (80-100); Mean Platelet Volume 9.9 fL (7.4-10.4); Monocytes # (auto) 0.15 K/uL (0.11-0.59); Monocytes % (auto) 3.8 %; Neutrophils # (auto) 3.01 K/uL (1.4-6.5); Neutrophils % (auto) 75.6 %; Platelet Count 114 K/uL (130-400); RDW Coefficient of Variation 14.6 % (11.5-14.5); RDW Standard Deviation 50.1 fL (36.4-46.3); Red Blood Count 3.38 M/uL (4.2-5.4); White Blood Count 3.98 K/uL (4.8-10.8)
--- NOTE | 2019-05-03 13:38 | XRay Report ---
SINGLE VIEW CHEST CLINICAL HISTORY: Atypical chest pain. FINDINGS: An AP, portable, upright chest radiograph is compared to study dated 04/01/2019. Correlation is made with chest CT dated 06/11/2018. The examination is degraded by portable technique and atypical position. The patient is status post midline sternotomy. The heart is enlarged noting atherosclero tic calcification of the thoracic aorta. The pulmonary vasculature is noncongested. There is mild bib asilar scarring/atelectasis. No airspace consolidation or large pleural effusion is identified. No pn eumothorax is seen. The skeletal structures are osteopenic. The bony thorax is grossly intact. IMPRESSION: Cardiomegaly with no acute cardiopulmonary abnormality. ACT 112: Negative or not required by law. Electronically signed by: Arcadio Sutton M.D. 05/03/2019 1:37 PM
[2019-05-03 13:44] LABS: INR 1.1 (0.9-1.1); Partial Thromboplastin Ratio 0.9; Partial Thromboplastin Time 26.4 Seconds (21.0-31.0); Prothrombin Time 11.3 Seconds (9.0-12.0)
[2019-05-03 13:48] LABS: Alanine Aminotransferase 197 U/L (12-78); Albumin Level 3.3 gm/dl (3.4-5.0); Aspartate Aminotransferase 103 U/L (15-37); BUN Creatinine Ratio 17.6 (10-20); Blood Urea Nitrogen 30 mg/dl (7-18); Calcium 8.8 mg/dl (8.5-10.1); Carbon Dioxide 24 mmol/L (21-32); Chloride 112 mmol/L (98-107); Creatinine Clr Calc Pharmacy 34.9 ml/min; Est GFR (African American) 35.3; Est GFR (Non-African American) 30.5; Glucose 93 mg/dl (70-99); Lipase 94 U/L (73-393); Magnesium 2.3 mg/dl (1.8-2.4); Potassium 3.4 mmol/L (3.5-5.1); Sodium 143 mmol/L (136-145)
[2019-05-03] MEDS ORDERED: DEXAMETHASONE **PF** INJ 10 MG/ML VIAL ONE (13:49)
[2019-05-03 13:53] LABS: Albumin Globulin Ratio 0.8 (0.9-2); Alkaline Phosphatase 138 U/L (45-117); Bilirubin,Total 2.2 mg/dl (0.2-1); Globulin 4.1 gm/dl (2.5-4.0); NT Pro B Type Natriuretic Pept 3144 pg/ml (0-900); Phosphorus 3.3 mg/dl (2.5-4.9); Total Protein 7.4 gm/dl (6.4-8.2); Troponin I < 0.015 ng/ml (0-0.045)
[2019-05-03 13:59] LABS: RBC Morphology Unremarkable
[2019-05-03 14:10] LABS: Influenza A virus by PCR Neg for Influ A (Neg); Influenza B virus by PCR Neg for Influ B (Neg)
[2019-05-03] MEDS ORDERED: DOXYCYCLINE HYCLATE 100 MG in DEXTROSE 5% 100 ML IV STA (15:55)
--- NOTE | 2019-05-03 16:16 | Emergency Department Note ---
ED Provider Note NAME: RUFUS STAFFORD AGE: 69 SEX: F ARRIVES VIA: Walk-In INFORMANT: Patient, ED PROVIDER(S): Sen Mcdaniel MD CHIEF COMPLAINT: MEDICAL DECISION MAKING: The patient is a pleasant 61-year-old woman with a past medical history of CAD status post CABG, reflux, gastroparesis, hypertension, hyperlipidemia, asthma/pulmonary emphysema, KEREN who presents emergency department for evaluation of cough congestion over the past several days that has not been improving with steroid and albuterol which was initiated outpatient seen by PCP and referred to emergency department today. On arrival the patient is mildly dyspneic but no acute distress, afebrile with stable vital signs. Patient has scattered wheezes throughout. EKG without overt acute ischemia. Chest x-ray without acute cardiopulmonary process. WBC 3.9, H&H 10.1/31.9 and platelets 114, proximal to prior range of values in the setting of history of [place] cirrhosis, creatinine 1. 7 within range of prior values in setting of CKD, LFTs increased from prior in the setting of [place] cirrhosis with total bilirubin 2.2, AST 103, ALT 197, alk phos 138. Troponin negative/undetectable. BNP 3K without recent values for comparison and unclear significance in the setting of CKD. Influenza negative. She was treated with dose of dexamethasone and continuous DuoNeb with improvement in her symptoms. However upon ambulatory trial the patient did become significantly dyspneic and had oxygen desaturation to 88% on room air. Thus, reasonable to admit the patient for further management of likely flare of underlying lung disease. Case discussed with Dr. Rainey, [facility] hospitalist, who evaluate the patient for admission. We agree with treatment with doxycycline at this time given history of lung disease. Triage Nursing notes reviewed and agree them. Prior medical records reviewed Vital Signs: reviewed and remarkable for no significant abnormalities Differential diagnosis: Reactive airway disease, pneumonia, pneumothorax, COPD, CHF, infections, cardiac ischemia, pulmonary embolism, musculoskeletal, gastrointestinal, as well as other pathologies. ER treatment provided: See below Diagnostics interpreted by me: ECG: Normal sinus rhythm with P SVC's, 60 bpm, normal axis, there are nonspecific ST and T wave abnormalities without overt no ST elevation or depression. TC 440, QRS 74. Cardiac Monitoring: None Laboratory studies: See below Imaging studies: SINGLE VIEW CHEST CLINICAL HISTORY: Atypical chest pain. FINDINGS: An AP, portable, upright chest radiograph is compared to study dated 04/01/2019. Correlation is made with chest CT dated 06/11/2018. The examination is degraded by portable technique and atypical position. The patient is status post midline sternotomy. The heart is enlarged noting atherosclerotic calcification of the thoracic aorta. The pulmonary vasculature is noncongested. There is mild bibasilar scarring/atelectasis. No airspace consolidation or large pleural effusion is identified. No pneumothorax is seen. The skeletal structures are osteopenic. The bony thorax is grossly intact. IMPRESSION: Cardiomegaly with no acute cardiopulmonary abnormality. Consultation(s): None HPI: The patient is a pleasant 61-year-old woman with a past medical history of CAD status post CABG, reflux, gastroparesis, hypertension, hyperlipidemia, asthma/pulmonary emphysema, KEREN who presents emergency department for evaluation of gradually progressive cough congestion over the past several days that has not been improving with steroid and albuterol which was initiated outpatient seen by PCP and referred to emergency department today. Denies fevers, nausea, vomiting, diarrhea. Denies urinary symptoms. ROS: See above HPI for pertinent positives & negatives. A total of 10 systems reviewed and were otherwise negative. PAST MEDICAL HISTORY:See Below PAST SURGICAL HISTORY:See Below FAMILY HISTORY:See Below SOCIAL HISTORY:See Below HOME MEDICATIONS:See Below ALLERGIES:See Below VITALS:See Below PHYSICAL EXAMINATION: GENERAL: Awake, alert, mildly dyspneic-appearing, in no distress HENT: Normocephalic, atraumatic. Oropharynx with dry mucous membranes and otherwise unremarkable. EYES: Normal conjunctiva. Sclera non-icteric. NECK: Supple. No nuchal rigidity. FROM. No JVD. RESPIRATORY: Scattered wheezes. Mild increased work of breathing. CARDIAC: Regular rate, normal rhythm. Extremities warm and well perfused. Pulses equal. ABDOMEN: Soft, non-distended. No tenderness to palpation. No rebound or guarding. No masses. RECTAL: Deferred. MUSCULOSKELETAL: Chest examination reveals no tenderness. The back is symmetrical on inspection without obvious abnormality. There is no CVA tenderness to palpation. No joint edema. LOWER EXTREMITIES: Calves are equal size bilaterally and non-tender. No edema. No discoloration. NEURO: Normal sensorium. No sensory or motor deficits noted. SKIN: No rash or jaundice noted. Sen Mcdaniel MD Impression & Plan Hypoxia, Bronchitis, Stage III chronic kidney disease, Hepatic cirrhosis, Hx of CABG Past Med/Surg History Medical History Antiplatelet or antithrombotic long-term use Asymptomatic carotid artery stenosis Bilateral carotid artery disease CAD (coronary artery disease) Cerebral arterial aneurysm Chest pain due to CAD Chronic reflux esophagitis Controlled type 2 diabetes mellitus with kidney complication, with long-term current use of insulin Diabetic peripheral neuropathy Dysesthesia ETD (eustachian tube dysfunction) Gastroparesis Hepatic cirrhosis History of anemia History of ASCVD History of asthma History of depression Hypercholesterolemia Hypertension Hypothyroidism Intestinal metaplasia of gastric mucosa Irritable bowel syndrome KEREN (obstructive sleep apnea) Pulmonary emphysema Stage III chronic kidney disease Surgical History H/O: hysterectomy History of knee replacement Hx of CABG Hx of cataract surgery S/P nasal surgery Status post breast reduction Family History Mother Carotid artery stenosis Breast cancer Heart failure Myocardial infarction Brother Carotid artery stenosis Peripheral vascular disease Stroke syndrome Hx of CABG Sinusitis Asthma Myocardial infarction Sister Brain cancer Grandmother Myocardial infarction Denies family history of Ovarian cancer Prostate cancer Colorectal cancer Social History Preferred Language: Italian Communication Ability: Effective Visual Impairment: No Limitations Hearing Ability: Normal Bath Steward/Stewardess Required: No Beliefs That Will Affect Care: None marital status: Current Living Situation: Spouse current occupational status: employed and retired Feels Safe at Home: Yes Safety Concerns: Feels Safe At This Time Smoking Status: Never smoker Second Hand Exposure: No ; Hx Alcohol Use: Yes Alcohol type: wine Alcohol Intake Frequency Comment: rare Hx Substance Use: No Childhood Exposure to Second-Hand Smoke: Yes Dental Care, Regularly: Yes Physical Activity Frequency: Does not Exercise Seatbelt Use: always Sunscreen Use: Yes Results & Data (ED) Vital Signs Vital Signs - 24 hr 05/03/19 12:28 05/03/19 13:23 05/03/19 13:42 Temperature 36.5 C Temperature Source Oral Pulse Rate 67 Pulse Rate [Exercises] Pulse Rate [Finger] Pulse Rate [Resting] Respiratory Rate 22 20 Respiratory Rate [Exercises] Respiratory Rate [Resting] Respiratory Effort / Characteristics Non-Labored Spontaneous Non-Labored Spontaneous Respiratory Depth Normal Normal Blood Pressure 197/83 H Blood Pressure [Right Arm] Blood Pressure Mean 121 Blood Pressure Mean [Right Arm] Blood Pressure Position Sitting Pulse Oximetry 95 96 98 Pulse Oximetry [Exercises] Pulse Oximetry [Resting] Oxygen Delivery Method Room Air Nasal Cannula Room Air Sepsis Recent Fever Within 48 Hours No Sepsis New/Unexplained Change in Mental Status No Sepsis Action Taken by Nursing No Action Required Pulse Oximetry Post Tiitration 98 05/03/19 13:50 05/03/19 15:31 05/03/19 15:35 Temperature Temperature Source Pulse Rate Pulse Rate [Exercises] 89 Pulse Rate [Finger] 74 62 Pulse Rate [Resting] 78 Respiratory Rate 18 20 Respiratory Rate [Exercises] 34 H Respiratory Rate [Resting] 26 H Respiratory Effort / Characteristics Respiratory Depth Blood Pressure Blood Pressure [Right Arm] 143/74 H 128/64 Blood Pressure Mean Blood Pressure Mean [Right Arm] 97 85 Blood Pressure Position Pulse Oximetry 99 95 Pulse Oximetry [Exercises] 90 Pulse Oximetry [Resting] 91 Oxygen Delivery Method Room Air Room Air Sepsis Recent Fever Within 48 Hours Sepsis New/Unexplained Change in Mental Status Sepsis Action Taken by Nursing Pulse Oximetry Post Tiitration Laboratory Data Attestation: I reviewed the patient's lab results. Result diagrams: 05/03/19 13:20 05/03/19 13:20 Lab Results 05/03/19 05/03/19 05/03/19 Range/Units 13:20 13:20 13:20 WBC 3.98 L (4.8-10.8) K/uL RBC 3.38 L (4.2-5.4) M/uL Hgb 10.1 L (12.0-16.0) g/dL Hct 31.9 L (37-47) % MCV 94.4 (80-100) fL MCH 29.9 (25-34) pg MCHC 31.7 L (32-36) g/dL RDW Std Deviation 50.1 H (36.4-46.3) fL RDW Coeff of Gomez 14.6 H (11.5-14.5) % Plt Count 114 L (130-400) K/uL MPV 9.9 (7.4-10.4) fL Immature Gran % (Auto) 0.5 % Neut % (Auto) 75.6 % Lymph % (Auto) 19.6 % [place] % (Auto) 3.8 % Eos % (Auto) 0.5 % Baso % (Auto) 0.0 % Immature Gran # (Auto) 0.02 (0.00-0.02) K/uL Neut # (Auto) 3.01 (1.4-6.5) K/uL Lymph # (Auto) 0.78 L (1.2-3.4) K/uL [place] # (Auto) 0.15 (0.11-0.59) K/uL Eos # (Auto) 0.02 (0-0.5) K/uL Baso # (Auto) 0.00 (0-0.2) K/uL RBC Morphology Unremarkable PT 11.3 (9.0-12.0) Seconds INR 1.1 (0.9-1.1) APTT 26.4 (21.0-31.0) Seconds PTT Ratio 0.9 Sodium 143 (136-145) mmol/L Potassium 3.4 L (3.5-5.1) mmol/L Chloride 112 H (98-107) mmol/L Carbon Dioxide 24 (21-32) mmol/L Anion Gap 8.0 (3-11) BUN 30 H (7-18) mg/dl Creatinine 1.70 H (0.6-1.2) mg/dl Est Cr Clr Drug Dosing 34.9 ml/min Est GFR ( Amer) 35.3 Est GFR (Non-Af Amer) 30.5 BUN/Creatinine Ratio 17.6 (10-20) Glucose 93 (70-99) mg/dl Calcium 8.8 (8.5-10.1) mg/dl Phosphorus 3.3 (2.5-4.9) mg/dl Magnesium 2.3 (1.8-2.4) mg/dl Total Bilirubin 2.2 H (0.2-1) mg/dl AST 103 H (15-37) U/L ALT 197 H (12-78) U/L Alkaline Phosphatase 138 H (45-117) U/L Troponin I < 0.015 (0-0.045) ng/ml NT-Pro-B Natriuret Pep 3144 H (0-900) pg/ml Total Protein 7.4 (6.4-8.2) gm/dl Albumin 3.3 L (3.4-5.0) gm/dl Globulin 4.1 H (2.5-4.0) gm/dl Albumin/Globulin Ratio 0.8 L (0.9-2) Lipase 94 (73-393) U/L Influenza Type A (PCR) (Neg) Influenza Type B (PCR) (Neg) 05/03/19 Range/Units 13:24 WBC (4.8-10.8) K/uL RBC (4.2-5.4) M/uL Hgb (12.0-16.0) g/dL Hct (37-47) % MCV (80-100) fL MCH (25-34) pg MCHC (32-36) g/dL RDW Std Deviation (36.4-46.3) fL RDW Coeff of Gomez (11.5-14.5) % Plt Count (130-400) K/uL MPV (7.4-10.4) fL Immature Gran % (Auto) % Neut % (Auto) % Lymph % (Auto) % [place] % (Auto) % Eos % (Auto) % Baso % (Auto) % Immature Gran # (Auto) (0.00-0.02) K/uL Neut # (Auto) (1.4-6.5) K/uL Lymph # (Auto) (1.2-3.4) K/uL [place] # (Auto) (0.11-0.59) K/uL Eos # (Auto) (0-0.5) K/uL Baso # (Auto) (0-0.2) K/uL RBC Morphology PT (9.0-12.0) Seconds INR (0.9-1.1) APTT (21.0-31.0) Seconds PTT Ratio Sodium (136-145) mmol/L Potassium (3.5-5.1) mmol/L Chloride (98-107) mmol/L Carbon Dioxide (21-32) mmol/L Anion Gap (3-11) BUN (7-18) mg/dl Creatinine (0.6-1.2) mg/dl Est Cr Clr Drug Dosing ml/min Est GFR ( Amer) Est GFR (Non-Af Amer) BUN/Creatinine Ratio (10-20) Glucose (70-99) mg/dl Calcium (8.5-10.1) mg/dl Phosphorus (2.5-4.9) mg/dl Magnesium (1.8-2.4) mg/dl Total Bilirubin (0.2-1) mg/dl AST (15-37) U/L ALT (12-78) U/L Alkaline Phosphatase (45-117) U/L Troponin I (0-0.045) ng/ml NT-Pro-B Natriuret Pep (0-900) pg/ml Total Protein (6.4-8.2) gm/dl Albumin (3.4-5.0) gm/dl Globulin (2.5-4.0) gm/dl Albumin/Globulin Ratio (0.9-2) Lipase (73-393) U/L Influenza Type A (PCR) Neg for Influ A (Neg) Influenza Type B (PCR) Neg for Influ B (Neg) Administered Medications Albuterol (Duoneb) 3 ml NEB Q4R [place] Stop: 06/02/19 19:22 Last Admin: 05/03/19 19:56 Dose: 3 ml Documented by: [id number] Gabapentin (Neurontin) 100 mg PO BID [place] Stop: 06/02/19 20:59 Last Admin: 05/03/19 21:39 Dose: 100 mg Documented by: [id number] Methylprednisolone 40 mg/ (Syringe) 0.64 mls @ 1.5 mls/min IV Q8 [place] Stop: 06/02/19 21:59 Last Admin: 05/03/19 22:00 Dose: 1.5 mls/min Documented by: [id number] Insulin Aspart (Novolog Insulin Pump) 1 ea N/A [facility] [place] Stop: 06/02/19 20:59 Last Admin: 05/03/19 21:41 Dose: 1 ea Documented by: [id number] Ranolazine (Ranexa) 1,000 mg PO BID [place] Stop: 06/02/19 20:59 Last Admin: 05/03/19 21:40 Dose: 1,000 mg Documented by: [id number] Sucralfate (Carafate Tab) 1 gm PO [facility] [place] Stop: 06/02/19 20:59 Last Admin: 05/03/19 21:40 Dose: 1 gm Documented by: [id number] Trazodone HCl (Desyrel) 50 mg PO HS [place] Stop: 06/02/19 20:59 Last Admin: 05/03/19 21:40 Dose: 50 mg Documented by: [id number] Discontinued Medications Albuterol (Duoneb) 12 ml NEB ONE ONE Stop: 05/03/19 13:11 Last Admin: 05/03/19 13:22 Dose: 12 ml Documented by: [id number] Dexamethasone Sodium Phosphate (Decadron Pf) Confirm Administered Dose 10 mg .ROUTE .STK-MED ONE Stop: 05/03/19 13:50 Last Admin: 05/03/19 13:51 Dose: 10 mg Documented by: [id number] Sodium Chloride (Nss) 500 mls @ 999 mls/hr IV .Q31M ONE Stop: 05/03/19 13:40 Last Infusion: 05/03/19 14:25 Dose: 0 mls/hr Documented by: [id number] Admin: 05/03/19 13:51 Dose: 999 mls/hr Documented by: [id number] Dexamethasone Sodium Phosphate (10 mg/ Syringe) 2.5 mls @ 1 mls/min IV NOW STA Stop: 05/03/19 13:12 Last Admin: 05/03/19 13:51 Dose: Not Given Documented by: [id number] Doxycycline Hyclate 100 mg/ (Dextrose) 110 mls @ 50 mls/hr IV NOW STA Stop: 05/03/19 18:06 Last Infusion: 05/03/19 18:06 Dose: 0 mls/hr Documented by: [id number] Admin: 05/03/19 16:36 Dose: 50 mls/hr Documented by: [id number] Blood Pressure Blood Pressure Findings: Normal blood pressure Discharge Plan Visit Data *Final* Discharge Date/Time: 05/03/19 18:45 Chief Complaint: Shortness of Breath/Dyspnea Stated Complaint: SOB, COUGH ED Provider: Sen Mcdaniel Discharge Problem: Hypoxia, Bronchitis, Stage III chronic kidney disease, Hepatic cirrhosis, Hx of CABG Patient Disposition: Admitted As Inpatient Discharge Instructions Interventions: ED Discharge Assessment Last Done: 05/03/19 18:45 Discharge Problem: Hepatic cirrhosis Qualifiers: Hepatic cirrhosis type: unspecified hepatic cirrhosis
--- NOTE | 2019-05-03 16:29 | Electrocardiogram Report ---
Test Reason : Blood Pressure : / mmHG Vent. Rate : 060 BPM Atrial Rate : 060 BPM P-R Int : 116 ms QRS Dur : 074 ms QT Int : 440 ms P-R-T Axes : 041 047 112 degrees QTc Int : 440 ms Sinus rhythm with Premature supraventricular complexes Nonspecific ST and T wave abnormality Abnormal ECG When compared with ECG of 27-AUG-2018 14:42, No significant change was found Confirmed by Jigar Thomas ([id number] on 05/03/2019 4:29:16 PM Referred By: REFERRED SELF Confirmed By:Carlos Thomas
--- NOTE | 2019-05-03 17:04 | History & Physical Report ---
Date of Service May 03, 2019 Assessment & Plan (1) Asthma exacerbation: Some improvement s/p nebs, steroids in ED Will continue with nebs, solumedrol 40mg iV TID Dose of doxy in the ED, will hold further abx for now and leave to discretion of day team CXR neg for PNA Flu neg Trop neg x1 BNP elevated without findings of CHF on CXR and no hx of diuretic use Recent cardiac workup as noted at OSH, records requested (2) Hypokalemia: Recent admission for hyperK related to renal disease Will not replete at this time due to recent hyperK, monitor in AM (3) Stage III chronic kidney disease: Baseline cr 2.5, at 1.7 on admission Had been scheduled for fistula creation with Dr. Marcos for potential future use, however this was postponed due to recent COVID-[address] Calixto if needed No current HD (4) CAD (coronary artery disease): Hx of CAGB x16 yrs Stent placed 08/2018 Aspirin/plavix, continue (5) Hepatic cirrhosis: States related to fatty liver LFTs with mild elevation today, which is not her baseline Repeat in AM (6) Anemia: Baseline Hb 10-12, 10.1 on admission Repeat in AM (7) Controlled type 2 diabetes mellitus with kidney complication, with long-term current use of insulin: Uses an automatic pump that checks BS Q5min and administers insulin PRN without other direction from pt Continue to use A1c pending (8) Depression: continue home meds (9) Diabetic peripheral neuropathy: States gabapentin was decreased from TID to BID during recent [facility] [place] Will order BID (10) Gastroparesis: continue home meds Pt takes zantac, which is on recall Start famotidine Home zantac use should be evaluated (11) Hypercholesterolemia: continue home meds (12) Hypertension: continue home meds (13) Hypothyroidism: continue home meds (14) Insulin pump in place: As noted above (15) Irritable bowel syndrome: continue home meds (16) Obstructive sleep apnea: Uses CPAP at home, will order Did not bring one with her today (17) Secondary hyperparathyroidism of renal origin: Noted (18) Vitamin D deficiency: continue home meds (19) DVT prophylaxis: SCDs History of Present Illness Primary Care Provider: Mindi Antoine MD 69 y/o F c/o SOB. Pt was admitted to [facility] until 04/22 where she had been evaluated for sx concerning for possible stroke. She had lost control of her LE and had syncope x2 prior to that admission. She was dx with hyperkalemia thought related to her kidney disease. Pt states she had a negative cardiac workup during this admission. She states that those sx have since resolved. She states she noted a very mild cough on the day she was being d/c'd, but it was not causing SOB or other issues at that time. Over that weekend, she started to have mild HOOKS with stairs. She called her PCP on 04/25 and was given an order for steroids, which she started. Her breathing became worse. At first her inhalers were helping, but then they stopped helping and her SOB progressed to flat surfaces and occasionally at rest. She was seen by PCP in the office today and advised to come to the ED for evaluation. Pt denies fever, abd pain, n/v/c/d, LE pain or swelling. She states that when she has prolonged cough episodes she does have some chest pain the last few days, but this resolves with the resolution of the coughing and does not happen outside of coughing or with the SOB. Pt was given an hour long neb and steroids, doxycycline in the ED and does feel improved, but still not at her usual breathing. Pt has hx of outpt tx for PNA in February. Allergies Allergy/AdvReac Type Severity Reaction Status Date / Time levofloxacin Allergy Intermediate rash Verified 05/03/19 14:14 enalapril Allergy Unknown DRY COUGH Verified 05/03/19 14:14 insulin detemir Allergy Unknown HIVES Verified 05/03/19 14:14 phenol Allergy Unknown HIVES Verified 05/03/19 14:14 enalaprilat [From Vasotec] Allergy Unknown Verified 05/03/19 14:14 ketorolac AdvReac Intermediate nausea/vomi Verified 05/03/19 14:14 ting Home Medications Home Medications Medication Instructions Recorded Confirmed Type albuterol sulfate [Ventolin HFA] 2 puff INHALATION Q4 PRN 08/27/18 05/03/19 History budesonide-formoterol [Symbicort] 2 puff INHALATION BID 08/27/18 05/03/19 History calcium carbonate-vitamin D3 1 tab PO DAILY 08/27/18 05/03/19 History [Caltrate 600 + D] cyanocobalamin (vitamin B-12) 1,000 mcg PO DAILY 08/27/18 05/03/19 History [Vitamin B-12] fexofenadine [Chelsie Allergy] 180 mg PO DAILY PRN 08/27/18 05/03/19 History ipratropium bromide 1 spray INTRANASAL ACHS 08/27/18 05/03/19 History isosorbide mononitrate 180 mg PO DAILY 08/27/18 05/03/19 History nitroglycerin [Nitrostat] 0.4 mg SUBLINGUAL UD PRN 08/27/18 05/03/19 History ofloxacin 5 drp OPHTHALMIC (EYE) BID PRN 08/27/18 05/03/19 History olopatadine 1 drp OPHTHALMIC (EYE) BID PRN 08/27/18 05/03/19 History ranitidine HCl [Zantac] 300 mg PO QPM 08/27/18 05/03/19 History sucralfate [Carafate] [address] [facility] 08/27/18 05/03/19 History tiotropium bromide [Spiriva with 1 cap INHALATION DAILY 08/27/18 05/03/19 History HandiHaler] aspirin 81 mg tablet,delayed 81 mg PO DAILY 09/04/18 05/03/19 History release clopidogrel 75 mg tablet 75 mg PO DAILY 09/04/18 05/03/19 History tramadol 50 mg tablet 50 mg PO Q6H PRN #60 tab 09/04/18 05/03/19 Rx metoprolol succinate 100 mg 100 mg PO DAILY #30 tab 09/14/18 05/03/19 Rx tablet,extended release 24 hr pantoprazole 40 mg tablet,delayed 40 mg PO DAILY tab 11/12/18 05/03/19 History release cholecalciferol (vitamin D3) 25 1,000 unit PO DAILY #90 tab 11/24/18 05/03/19 Rx mcg (1,000 unit) tablet Novolog U-100 Insulin aspart 100 See Rx Instructions SUBCUT DAILY 12/02/18 05/03/19 Rx unit/mL subcutaneous solution #70 ml NS rosuvastatin 40 mg tablet 40 mg PO DAILY #90 tab 12/10/18 05/03/19 Rx ezetimibe 10 mg tablet 10 mg PO DAILY #90 tab 01/11/19 05/03/19 Rx trazodone 50 mg tablet 50 mg PO HS #90 tab 01/11/19 05/03/19 Rx levothyroxine 88 mcg tablet See Rx Instructions .ROUTE 01/19/19 05/03/19 Rx .COMPLEX #90 tablet Omnipod Insulin Refill #180 ea NS 02/28/19 05/03/19 Rx levalbuterol HCl 1.25 mg/3 mL 1.25 mg INHALATION TID PRN #36 ml 03/02/19 05/03/19 Rx solution for nebulization sertraline 100 mg tablet 100 mg PO DAILY #30 tab 03/10/19 05/03/19 Rx blood sugar diagnostic ea 03/15/19 05/03/19 History ranolazine 1,000 mg 1,000 mg PO BID #180 tab 03/30/19 05/03/19 Rx tablet,extended release,12 hr calcitriol 0.5 mcg capsule 0.5 mcg PO UD #45 cap 04/08/19 05/03/19 Rx gabapentin 100 mg capsule 100 mg PO TID #270 cap 04/22/19 05/03/19 Rx prednisone 10 mg tablets in a dose See Rx Instructions .ROUTE 04/27/19 05/03/19 Rx pack .COMPLEX #30 ea sodium polystyrene sulfonate 15 60 ml PO UD #473 ml 04/27/19 05/03/19 Rx gram/60 mL oral suspension montelukast 10 mg tablet 10 mg PO DAILY #90 tab 04/29/19 05/03/19 Rx benzonatate 100 mg capsule See Rx Instructions PO TID PRN #30 05/03/19 05/03/19 Rx cap Past Med/Surg History Medical History Antiplatelet or antithrombotic long-term use Asymptomatic carotid artery stenosis Bilateral carotid artery disease CAD (coronary artery disease) Cerebral arterial aneurysm Chest pain due to CAD Chronic reflux esophagitis Controlled type 2 diabetes mellitus with kidney complication, with long-term current use of insulin Diabetic peripheral neuropathy Dysesthesia ETD (eustachian tube dysfunction) Gastroparesis Hepatic cirrhosis History of anemia History of ASCVD History of asthma History of depression Hypercholesterolemia Hypertension Hypothyroidism Intestinal metaplasia of gastric mucosa Irritable bowel syndrome KEREN (obstructive sleep apnea) Pulmonary emphysema Stage III chronic kidney disease Surgical History H/O: hysterectomy History of knee replacement Hx of CABG Hx of cataract surgery S/P nasal surgery Status post breast reduction Family History Mother Carotid artery stenosis Breast cancer Heart failure Myocardial infarction Brother Carotid artery stenosis Peripheral vascular disease Stroke syndrome Hx of CABG Sinusitis Asthma Myocardial infarction Sister Brain cancer Grandmother Myocardial infarction Denies family history of Ovarian cancer Prostate cancer Colorectal cancer Social History (Updated 05/03/19 @ 17:01 by Elizabeth Burris DO) Preferred Language: Indonesian Communication Ability: Effective Visual Impairment: No Limitations Hearing Ability: Normal Accounting Policy Consultant Required: No Beliefs That Will Affect Care: None marital status: Current Living Situation: Spouse current occupational status: employed and retired Feels Safe at Home: Yes Smoking Status: Never smoker Second Hand Exposure: No ; Hx Alcohol Use: Yes Alcohol type: wine Alcohol Intake Frequency Comment: rare Hx Substance Use: No Childhood Exposure to Second-Hand Smoke: Yes Dental Care, Regularly: Yes Physical Activity Frequency: Does not Exercise Seatbelt Use: always Sunscreen Use: Yes Review of Systems Review of Systems: Pertinent positives and negatives reviewed in HPI--all others negative Physical Exam Constitutional: WD/WN, vitals as above Eyes: normal visual kuo by confrontation and + anicteric sclerae Neck: normal visual inspection and trachea midline Respiratory: normal respiratory effort; no respiratory distress Auscultation: + diminished lung sounds and + wheezes; no crackles Cardiovascular: Rate/Rhythm: regular rate and regular rhythm Gastrointestinal (Abdomen): Inspection/Auscultation: abdomen not distended Percussion/Palpation: abdomen soft; abdomen nontender Musculoskeletal: Head/Neck/Chest: normocephalic and head atraumatic negative for edema, peripheral pulses intact Skin: no rashes, warm and dry Neurologic: awake; not confused Speech / Cognition: normal speech Psychiatric: A+Ox3, euthymic affect Results & Data Vital Signs (Past 12 Hours) Vital Signs Temp Pulse Pulse Pulse Pulse Resp Resp 05/03/19 15:35 89 78 34 H 05/03/19 15:31 62 20 05/03/19 13:50 74 18 05/03/19 13:42 05/03/19 13:23 20 05/03/19 12:28 36.5 C 67 22 Resp BP BP Pulse Ox Pulse Ox Pulse Ox 05/03/19 15:35 26 H 90 91 05/03/19 15:31 128/64 95 05/03/19 13:50 143/74 H 99 05/03/19 13:42 98 05/03/19 13:23 96 05/03/19 12:28 197/83 H 95 Diagnostic Findings CXR: neg for acute ECG Additional Comments: Sinus Code Status & VTE Plan Code Status Full code VTE Prophylaxis Plan VTE Prophylaxis will be ordered: Yes PG Care Time/CCT Total # of Minutes Spent Total Time Spent with Patient: Total time spent is greater than 50% in coordination of care (as documented) at patient's floor/unit and/or counseling patient: Coding Level of Care Code 98661 Initial Inpt Care Lvl 3 Diagnoses Asthma exacerbation J45.901 Hypokalemia E87.6 Stage III chronic kidney disease N18.3 CAD (coronary artery disease) I25.10 Hepatic cirrhosis K74.60 Anemia D64.9 Controlled type 2 diabetes mellitus with kidney complication, with long-term current use of insulin E11.29; Z79.4 Depression F32.9 Diabetic peripheral neuropathy E11.42 Gastroparesis K31.84 Hypercholesterolemia E78.00 Hypertension I10 Hypothyroidism E03.[address] Z96.41 Irritable bowel syndrome K58.9 Obstructive sleep apnea G47.33 Secondary hyperparathyroidism of renal origin N25.81 Vitamin D deficiency E55.9 DVT prophylaxis Z29.9
[2019-05-03] MEDS ORDERED: OFLOXACIN 0.3% OP SOLN 5 ML BTL OP PRN (19:23)
[2019-05-03] MEDS ORDERED: GLUCOSE 10 TABS/TUBE PO PRN (19:23)
[2019-05-03] MEDS ORDERED: ACETAMINOPHEN 325 MG TAB PO PRN (19:23)
[2019-05-03] MEDS ORDERED: LEVALBUTEROL HCL 1.25 MG/3 ML NEB INH PRN (19:23)
[2019-05-03] MEDS ORDERED: [UNRECOGNIZED DRUG - REMARK] PO SCH (19:23)
[2019-05-03] MEDS ORDERED: BENZONATATE 100 MG CAPSULE PO PRN (19:23)
[2019-05-03] MEDS ORDERED: INSULIN PUMP CARTRIDGE SCH (19:23)
[2019-05-03] MEDS ORDERED: DEXTROSE 50% 50 ML SYRINGE IV PRN (19:23)
[2019-05-03] MEDS ORDERED: NITROGLYCERIN SL 0.4 MG/TAB TAB SL PRN (19:23)
[2019-05-03] MEDS ORDERED: FEXOFENADINE HCL 180 MG TAB PO PRN (19:23)
[2019-05-03] MEDS ORDERED: TRAMADOL HCL 50 MG TABLET PO PRN (19:23)
[2019-05-03] MEDS ORDERED: GLUCOSE 40% GEL 15 GM TUBE PO PRN (19:23)
[2019-05-03] MEDS ORDERED: ALBUTEROL HFA 8 GM INHALER INH PRN (19:23)
[2019-05-03] MEDS ORDERED: ONDANSETRON INJ 2 MG/ML 2 ML VIAL IV PRN (19:23)
[2019-05-03] MEDS ORDERED: GLUCAGON FOR INJ 1 MG VIAL SQ PRN (19:23)
[2019-05-03] MEDS ORDERED: MAGNESIUM HYDROXIDE SUSP 30 ML UDC PO PRN (19:23)
[2019-05-03] MEDS: ALBUT/IPRATROP 3MG/0.5MG NEB 3 ML VIAL NEB SCH ×2 (19:56→23:14)
[2019-05-03] MEDS: GABAPENTIN 100 MG CAP PO SCH (21:39)
[2019-05-03] MEDS: SUCRALFATE 1 GM TAB PO SCH (21:40)
[2019-05-03] MEDS: RANOLAZINE 500 MG ER TAB PO SCH (21:40)
[2019-05-03] MEDS: TRAZODONE HCL 50 MG TAB PO SCH (21:40)
[2019-05-03] MEDS: NovoLOG INSULIN PUMP SCH (21:41)
[2019-05-03] MEDS: methylPREDNISolone 40 MG in SYRINGE 0 ML IV SCH (22:00)
[2019-05-04] MEDS: ALBUT/IPRATROP 3MG/0.5MG NEB 3 ML VIAL NEB SCH ×6 (03:02→23:17)
[2019-05-04] MEDS: methylPREDNISolone 40 MG in SYRINGE 0 ML IV SCH (05:37)
[2019-05-04] MEDS: LEVOTHYROXINE SODIUM 88 MCG TABLET PO SCH (05:37)
[2019-05-04 06:10] LABS: Hematocrit (blood only) 30.7 % (37-47); Hemoglobin 9.7 g/dL (12.0-16.0); Immature Granulocytes # (auto) 0.01 K/uL (0.00-0.02); Immature Granulocytes % (auto) 0.3 %; Lymphocytes # (auto) 0.75 K/uL (1.2-3.4); Lymphocytes % (auto) 21.4 %; Mean Corpuscular Hgb Conc 31.6 g/dL (32-36); Mean Platelet Volume 9.9 fL (7.4-10.4); Monocytes # (auto) 0.13 K/uL (0.11-0.59); Monocytes % (auto) 3.7 %; Neutrophils # (auto) 2.61 K/uL (1.4-6.5); Neutrophils % (auto) 74.6 %; Platelet Count 113 K/uL (130-400); RDW Coefficient of Variation 14.5 % (11.5-14.5); RDW Standard Deviation 50.5 fL (36.4-46.3); Red Blood Count 3.23 M/uL (4.2-5.4)
[2019-05-04 06:34] LABS: Ovalocytes 1+; Polychromasia 1+
[2019-05-04 06:51] LABS: Albumin Level 3.2 gm/dl (3.4-5.0); BUN Creatinine Ratio 18.1 (10-20); Bilirubin Direct 0.4 mg/dl (0-0.2); Calcium 8.9 mg/dl (8.5-10.1); Creatinine Clr Calc Pharmacy 32.4 ml/min; Est GFR (African American) 32.3; Est GFR (Non-African American) 27.9; Magnesium 2.4 mg/dl (1.8-2.4); Potassium 3.5 mmol/L (3.5-5.1)
[2019-05-04 06:55] LABS: Bilirubin,Total 1.5 mg/dl (0.2-1); Total Protein 7.2 gm/dl (6.4-8.2)
[2019-05-04 07:19] LABS: Estimated Average Glucose 131 mg/dl; Hemoglobin A1C 6.2 % (4.5-5.6)
[2019-05-04] MEDS: GABAPENTIN 100 MG CAP PO SCH ×2 (08:44→21:19)
[2019-05-04] MEDS: SUCRALFATE 1 GM TAB PO SCH ×4 (08:45→21:18)
[2019-05-04] MEDS: NovoLOG INSULIN PUMP SCH ×4 (08:45→20:34)
[2019-05-04] MEDS: FLUTICASONE/VILANTEROL 200/25MCG 14 PUFFS/INHALER INH SCH (08:48)
[2019-05-04] MEDS: RANOLAZINE 500 MG ER TAB PO SCH ×2 (08:49→21:21)
[2019-05-04] MEDS: PANTOprazole 40 MG TAB PO SCH (08:49)
[2019-05-04] MEDS: METOPROLOL SUCC 50MG EXT REL TAB PO SCH (08:50)
[2019-05-04] MEDS: MONTELUKAST SODIUM 10 MG TABLET PO SCH (08:50)
[2019-05-04] MEDS: CYANOCOBALAMIN 500 MCG TABLET (VITAMIN B-12) PO SCH (08:51)
[2019-05-04] MEDS: CHOLECALCIFEROL 1,000 UNITS 25 MCG TAB PO SCH (08:51)
[2019-05-04] MEDS: EZETIMIBE 10 MG TABLET PO SCH (08:51)
[2019-05-04] MEDS: SERTRALINE HCL 100 MG TABLET PO SCH (08:52)
[2019-05-04] MEDS: ASPIRIN 81 MG ECTAB PO SCH (08:52)
[2019-05-04] MEDS: FAMOTIDINE 20 MG TAB PO SCH (08:52)
[2019-05-04] MEDS: CLOPIDOGREL BISULFATE 75 MG TAB PO SCH (08:52)
[2019-05-04] MEDS: ROSUVASTATIN CALCIUM 20 MG TAB PO SCH (08:53)
[2019-05-04] MEDS: UMECLIDINIUM BROMIDE 62.5MCG/BLISTER 7 PUFFS/INHALER INH SCH (08:54)
[2019-05-04] MEDS: ISOSORBIDE MONO EXTENDED REL 60 MG TABCR PO SCH (08:54)
[2019-05-04] MEDS: CALCIUM 600MG + VIT D 400 IU TAB PO SCH (08:56)
--- NOTE | 2019-05-04 09:41 | Hospitalist Progress Note ---
Date of Service May 04, 2019 Assessment & Plan (1) Asthma exacerbation: * Patient with moderate persistent asthma -- uses rescue inhaler 2x/daily at baseline, increased to 4x/daily recently in addition to home nebs, breo, incruse * Some improvement s/p nebs, steroids, but not much. However, currently 99% on 2L, but was off oxygen during examination. * Had received dose of doxy in ED -- no further abx. Trop negative x1. BNP 3144. No evidence of CHF/volume overload on exam * CXR negative for acute process * Flu negative * Continue nebs Q4 scheduled * Continue home Breo, Montelukast, Incruse * Decrease Solumedrol to 30mg IV TID given decreased wheezing on exam-- continue to wean * Added mucinex 600mg BID, flutter valve * Added tessalon pearls (2) Hypokalemia: * Recent admission for hyperK related to renal disease --> 3.4 on admission -- did not replete due to recent hyperK * K 3.5 on Am labs * Continue to monitor (3) Stage III chronic kidney disease: * Baseline cr 2.5, at 1.7 on admission. * Originally scheduled for fistula creation with Dr. Marcos for potential future use, however this was postponed due to recent COVID-19 issues * Follows with Dr. Calixto if needed. No current HD. * Cr currently 1.83 * Continue to monitor BMP (4) CAD (coronary artery disease): * Hx of CAGB x16 yrs -- per patient, she states her asthma worsened since this time * Stent placed 08/2018 * Continue home ASA, Plavix, Rosuvastatin, Metoprolol (5) Hepatic cirrhosis: * States related to fatty liver, non-alcoholic. Denies abdominal pain. Of note, patient does have elevation of bilirubin noted on past lab draws * LFTs with mild elevation on admission --> trending down -- Tbili 1.5, AST 54, ALT 149, Alk phos 121 * Continue to monitor (6) Anemia: * Baseline Hb ~10, 10.1 on admission * H/h 9.7/30.7 * No overt s/sx bleeding * Continue to monitor (7) Controlled type 2 diabetes mellitus with kidney complication, with long-term current use of insulin: * Uses an automatic pump that checks BS Q5min and administers insulin PRN without other direction from pt --> patient to change her monitor this afternoon. She states she has replacement with her and currently has 44 units left which will get her to ~3pm this afternoon until changed * A1c improved to 6.2 * Continue to monitor (8) Depression: * Continue home sertraline (9) Diabetic peripheral neuropathy: * States gabapentin was decreased from TID to BID during recent [facility] [place] * Continue at BID dosing (10) Gastroparesis: * continue home meds * Pt takes zantac, which is on recall --> on famotidine 20mg BID while inpatient (11) Hypercholesterolemia: * continue home crestor, zetia (12) Hypertension: * Chronic. BP slightly elevated at 145/81 * Continue home metoprolol * Continue to monitor (13) Hypothyroidism: * Chronic. Stable * Continue home levothyroxine 88mcg (14) Insulin pump in place: * As noted above (15) Irritable bowel syndrome: * Continue home meds (16) Obstructive sleep apnea: * Uses CPAP at home -- ordered (17) Secondary hyperparathyroidism of renal origin: * Noted (18) Vitamin D deficiency: * continue home meds (19) DVT prophylaxis: * SCDs Dispo: likely to remain inpatient additional 1-2 days Admission and Anticipated Discharge Date Admission Date: May 03, 2019 Supervising Physician Co-Signing Physician Notes Attending Attestation - Chart reviewed in detail, care plan d/w VICKY Breaux. I agree w/ the lobato components of her documentation. 69yo female with asthma exacerbation. Cont IV steroids, supportive care. Tj Mendoza MD Subjective Patient evaluated at bedside this morning. Patient up to the bathroom without oxygen on, brushing teeth. She states her breathing is slightly improved from yesterday, but she still feels tight and wheezing. She continues to have a cough, which is occasionally productive of yellow sputum, but most of the time she states it is non-productive or clear. She states she feels like there is something stuck that she has been unable to clear. She states in the past she had been treated by Dr. Antoine with Mucinex to help thin secretions and is agreeable to trialing some at this time in addition to a flutter valve. She states she typically uses rescue inhaler twice daily, but has been utilizing up to four times a day since Friday with her nebulizer treatments when she noticed her breathing worsening. She does have some associated rib soreness from continued coughing. She denies recent travel or sick contact exposures. She denies loss of taste or smell. Denies fever or chills. Review of Systems Review of Systems: All systems reviewed & are unremarkable except as noted in HPI & below Physical Exam Constitutional: WD/WN, vitals as above no acute distress Eyes: + anicteric sclerae and PERRL ENMT: external ear and nose normal, oropharynx normal Neck: trachea midline, no thyromegaly Respiratory: normal respiratory effort; no labored breathing, does not use accessory muscles and + not able to speak in complete sentence Auscultation: + diminished lung sounds and + wheezes (faint end expiratory wheezing posterior lung kuo) Cardiovascular: RRR, no murmur, no edema Gastrointestinal (Abdomen): normal bowel sounds, soft, nontender, no hepatosplenomegaly Musculoskeletal: no cyanosis or clubbing, extremities motor strength 5/5 Skin: no rashes, warm and dry Psychiatric: A+Ox3, euthymic affect Lymphatic: no cervical or axillary lymphadenopathy PG Care Time/CCT Total # of Minutes Spent Total Time Spent with Patient: Total time spent is greater than 50% in coordination of care (as documented) at patient's floor/unit and/or counseling patient: Coding Level of Care Code 13574 Subseq Hosp Care Lvl 3 Diagnoses Asthma exacerbation J45.901 Hypokalemia E87.6 Stage III chronic kidney disease N18.3 CAD (coronary artery disease) I25.10 Hepatic cirrhosis K74.60 Hepatic cirrhosis type: unspecified hepatic cirrhosis Anemia D64.9 Controlled type 2 diabetes mellitus with kidney complication, with long-term current use of insulin E11.29; Z79.4 Depression F32.9 Diabetic peripheral neuropathy E11.42 Gastroparesis K31.84 Hypercholesterolemia E78.00 Hypertension I10 Hypothyroidism E03.[address] Z96.41 Irritable bowel syndrome K58.9 Obstructive sleep apnea G47.33 Secondary hyperparathyroidism of renal origin N25.81 Vitamin D deficiency E55.9 DVT prophylaxis Z29.9 (1) Hepatic cirrhosis Hepatic cirrhosis type: unspecified hepatic cirrhosis
[2019-05-04] MEDS: BENZONATATE 100 MG CAPSULE PO SCH ×2 (13:23→21:20)
[2019-05-04] MEDS: methylPREDNISolone 30 MG in SYRINGE 0 ML IV SCH ×2 (13:23→21:19)
[2019-05-04] MEDS ORDERED: AMLODIPINE BESYLATE 5 MG TAB PO ONE (18:19)
[2019-05-04] MEDS: TRAZODONE HCL 50 MG TAB PO SCH (21:20)
[2019-05-04] MEDS: guaiFENesin 600 MG TABCR PO SCH (21:20)
[2019-05-05] MEDS: ALBUT/IPRATROP 3MG/0.5MG NEB 3 ML VIAL NEB SCH ×6 (03:06→23:12)
[2019-05-05 05:43] LABS: Hematocrit (blood only) 29.5 % (37-47); Hemoglobin 9.3 g/dL (12.0-16.0); Immature Granulocytes # (auto) 0.03 K/uL (0.00-0.02); Immature Granulocytes % (auto) 0.7 %; Lymphocytes # (auto) 0.83 K/uL (1.2-3.4); Lymphocytes % (auto) 20.3 %; Mean Corpuscular Hemoglobin 29.3 pg (25-34); Mean Corpuscular Hgb Conc 31.5 g/dL (32-36); Mean Corpuscular Volume 93.1 fL (80-100); Mean Platelet Volume 9.2 fL (7.4-10.4); Monocytes # (auto) 0.19 K/uL (0.11-0.59); Monocytes % (auto) 4.6 %; Neutrophils # (auto) 3.04 K/uL (1.4-6.5); Neutrophils % (auto) 74.4 %; Platelet Count 113 K/uL (130-400); RDW Coefficient of Variation 14.8 % (11.5-14.5); RDW Standard Deviation 50.3 fL (36.4-46.3); Red Blood Count 3.17 M/uL (4.2-5.4); White Blood Count 4.09 K/uL (4.8-10.8)
[2019-05-05] MEDS: methylPREDNISolone 30 MG in SYRINGE 0 ML IV SCH (06:09)
[2019-05-05] MEDS: LEVOTHYROXINE SODIUM 88 MCG TABLET PO SCH (06:09)
[2019-05-05 06:14] LABS: Albumin Globulin Ratio 0.8 (0.9-2); Albumin Level 3.1 gm/dl (3.4-5.0); BUN Creatinine Ratio 21.9 (10-20); Bilirubin,Total 1.3 mg/dl (0.2-1); Calcium 9.1 mg/dl (8.5-10.1); Creatinine Clr Calc Pharmacy 31.2 ml/min; Est GFR (African American) 30.9; Est GFR (Non-African American) 26.6; Globulin 3.7 gm/dl (2.5-4.0); Potassium 4.1 mmol/L (3.5-5.1); Total Protein 6.8 gm/dl (6.4-8.2)
[2019-05-05] MEDS: SUCRALFATE 1 GM TAB PO SCH ×4 (08:08→21:18)
[2019-05-05] MEDS: ISOSORBIDE MONO EXTENDED REL 60 MG TABCR PO SCH (08:09)
[2019-05-05] MEDS: RANOLAZINE 500 MG ER TAB PO SCH ×2 (08:09→21:18)
[2019-05-05] MEDS: MONTELUKAST SODIUM 10 MG TABLET PO SCH (08:09)
[2019-05-05] MEDS: EZETIMIBE 10 MG TABLET PO SCH (08:10)
[2019-05-05] MEDS: PANTOprazole 40 MG TAB PO SCH (08:10)
[2019-05-05] MEDS: CHOLECALCIFEROL 1,000 UNITS 25 MCG TAB PO SCH (08:10)
[2019-05-05] MEDS: CALCIUM 600MG + VIT D 400 IU TAB PO SCH (08:11)
[2019-05-05] MEDS: METOPROLOL SUCC 50MG EXT REL TAB PO SCH (08:11)
[2019-05-05] MEDS: SERTRALINE HCL 100 MG TABLET PO SCH (08:11)
[2019-05-05] MEDS: ASPIRIN 81 MG ECTAB PO SCH (08:11)
[2019-05-05] MEDS: FAMOTIDINE 20 MG TAB PO SCH (08:11)
[2019-05-05] MEDS: ROSUVASTATIN CALCIUM 20 MG TAB PO SCH (08:11)
[2019-05-05] MEDS: guaiFENesin 600 MG TABCR PO SCH ×2 (08:12→21:18)
[2019-05-05] MEDS: CLOPIDOGREL BISULFATE 75 MG TAB PO SCH (08:12)
[2019-05-05] MEDS: GABAPENTIN 100 MG CAP PO SCH ×2 (08:12→21:19)
[2019-05-05] MEDS: CALCITRIOL 0.25 MCG CAPSULE PO SCH (08:12)
[2019-05-05] MEDS: BENZONATATE 100 MG CAPSULE PO SCH ×3 (08:12→21:19)
[2019-05-05] MEDS: FLUTICASONE/VILANTEROL 200/25MCG 14 PUFFS/INHALER INH SCH (08:13)
[2019-05-05] MEDS: CYANOCOBALAMIN 500 MCG TABLET (VITAMIN B-12) PO SCH (08:13)
[2019-05-05] MEDS: UMECLIDINIUM BROMIDE 62.5MCG/BLISTER 7 PUFFS/INHALER INH SCH (08:13)
[2019-05-05] MEDS: NovoLOG INSULIN PUMP SCH ×4 (08:18→21:12)
--- NOTE | 2019-05-05 08:20 | Hospitalist Progress Note ---
Date of Service May 05, 2019 Assessment & Plan (1) Asthma exacerbation: * Patient with moderate persistent asthma -- uses rescue inhaler 2x/daily at baseline, increased to 4x/daily recently in addition to home nebs, breo, incruse * Some improvement s/p nebs, steroids, but not much. However, currently 99% on 2L, but was off oxygen during examination. * Trop negative x1. BNP 3144. No evidence of CHF/volume overload on exam * CXR negative for acute process on admission * Flu negative * Continue Duonebs Q4 scheduled * Continue home Breo, Montelukast, Incruse * Solumedrol back to 40mg IV TID -- wean as allowed by improvement of symptoms and exam findings * Contiunue mucinex 600mg BID, flutter valve, tessalon pearls * Repeat CXR ordered for increased wheezing * Add guaifenesin/codeine cough syrup * Added doxycycline -- had previously received doxy x 1 in ED on admission (2) Stage III chronic kidney disease: * Cr 1.7 on admission. Baseline 1.7-1.[address] Calixto outpatient note. Patient recently admitted to [facility] with Cr of 3 and K >7. At that time, ANGELI, spironolactone, and HCTZ discontinued. Recommended Ranexa 500mg BID (although Dr Bennett outpatient note says increased to 1,000mg BID) and her metoprolol was decreased from 100 to 50mg daily. They also recommended that patient be on lokemla 10g packet per day for hyperkalemia, although patient has not received. K currently 4.1. * Originally scheduled for fistula creation with Dr. Marcos for potential future use, however this was postponed due to recent COVID-19 issues * Follows with Dr. Calixto if needed. No current HD. Continue home calcitriol 0.5mcg 3x/weekly * Cr currently 1.90, BUN 42. BUN/Cr 21.9 -- no evidence of volume overload/dehydration on exam. * Continue to monitor BMP (3) Hypokalemia: * RESOLVED * Recent admission to [facility] for hyperK related to renal disease --> 3.4 on admission -- did not replete due to recent hyperK * K 4.1 today * Of note, patient with recommendations to start Lokemla as above, although never started. * Continue to monitor -- may need to start if potassium continues to increase * Monitor AM labs (4) Hepatic cirrhosis: * States related to fatty liver, non-alcoholic. Denies abdominal pain. Of note, patient does have elevation of bilirubin noted on past lab draws * Patient supposed to have had MRI as outpatient but was never scheduled and followed up with [facility] without imaging. --> Supposed to have done soon, but we should make sure she is set up prior to discharge if not done inpatient, as LFTs increased from baseline -- patient denies abdominal pain at this time. * LFTs with mild elevation on admission --> trending down -- Tbili 1.3 from 1.5 * Rest much unchanged -- AST 60, ALT 144, Alk phos 123. Could be some hepatic co ngestion, although no evidence of volume overload on exam. Repeat CXR pending * Continue to monitor (5) CAD (coronary artery disease): * Hx of CAGB x16 yrs -- per patient, she states her asthma worsened since this time. PCI August 2018 s/p stent to RCA. Follows locally with Dr. Bennett. Medication changes earlier this month as above. MTP decreased to 50mg and R anexa 500mg BID. HCTZ, ANGELI, Spironolactone discontinued * Continue home ASA, Plavix, Rosuvastatin, Metoprolol 50mg (6) Anemia: * Baseline Hb ~10, 10.1 on admission * H/h 9.3/29.5 * No overt s/sx bleeding * Continue to monitor (7) Controlled type 2 diabetes mellitus with kidney complication, with long-term current use of insulin: * Uses an automatic pump that checks BS Q5min and administers insulin PRN without other direction from pt --> patient to change her monitor this afternoon. She states she has replacement with her and currently has 44 units left which will get her to ~3pm this afternoon until changed * A1c improved to 6.2 * Continue to monitor -- sugars acceptable (8) Depression: * Continue home sertraline (9) Diabetic peripheral neuropathy: * States gabapentin was decreased from TID to BID during recent [facility] admission * Continue at BID dosing (10) Gastroparesis: * continue home meds * Pt takes zantac, which is on recall --> on famotidine 20mg BID while inpatient (11) Hypercholesterolemia: * continue home crestor, zetia (12) Hypertension: * Chronic. BP well controlled, 138/79 * Continue home metoprolol * Continue to monitor (13) Hypothyroidism: * Chronic. Stable. Will check TSH in AM * Continue home levothyroxine 88mcg (14) Insulin pump in place: * As noted above (15) Irritable bowel syndrome: * Continue home meds (16) Obstructive sleep apnea: * Uses CPAP at home -- ordered (17) Secondary hyperparathyroidism of renal origin: * Noted (18) Vitamin D deficiency: * continue home meds (19) Constipation: * Patient states she chronically has issues moving her bowels when in the hospital. No BM since admission. Denies abdominal pain. * Will add miralax/colace * Continue to monitor (20) DVT prophylaxis: * SCDs * Ambulation encouraged Dispo: likely to remain inpatient additional 1-2 days Admission and Anticipated Discharge Date Admission Date: May 03, 2019 Supervising Physician Co-Signing Physician Notes Attending Attestation - Chart reviewed in detail, care plan d/w VICKY Breaux. I agree w/ the lobato components of her documentation. 69yo female with asthma exacerbation. Ongoing, not much improvement. Cont IV steroids - agree with increase. Cont supportive care. Tj Mendoza MD Subjective Patient evaluated at bedside this morning, resting comfortably. States no significant improvement of her symptoms over the past day and increased wheezing. Patient became short of breath with movement and continues to have persistent cough. She states she has had some yellow sputum production. Denies fever or chills but states she did have some night sweats last evening that she had prior to her pneumonia earlier this year. Some reproducible pain to left chest wall from repeated coughing. States she has tried cough syrup with codeine in the past and would be agreeable to trying this to see if this helps, as the Tessalon pearls have not been possible. She states she was scheduled to have her PFTs done this month but was rescheduled for June due to COVID-19. She states she follows locally with Dr. Castro. When asked about her cirrhosis and blood counts being chronically low, she states she had been seen by Dr. Hermosillo in the past and was referred to [facility] for cirrhosis work up. She states she was supposed to have an MRI scheduled for evaluation and when she went back to [facility] her provider was upset that she had not had this done. She states it was never scheduled and she has not been yet set up with an appointment. She states was referred and did have an EGD/Colonoscopy at [place] that she was upset about having done there because she follows locally with Dr. Polk, but states the provider wanted it done at a [facility] location. She notes she was told she does not have gastroparesis on those studies, but does not believe that. She denies ever having any abdominal imaging outside of an ultrasound done last year. She states when at [facility] and had a cardiac workup that she has areas of blockage and that there was not much in the way of intervention to improve this. She follows locally with Dr. Bennett. She is on optimum medical management at this time and will need follow up with cardiology at discharge. Review of Systems Review of Systems: All systems reviewed & are unremarkable except as noted in HPI & below Physical Exam Physical Exam: Constitutional WD/WN, vitals as above, obese no acute distress Eyes + anicteric sclerae and PERRL ENMT external ear and nose normal, oropharynx normal. Mallampati III Neck trachea midline, no thyromegaly Respiratory normal respiratory effort; no labored breathing, does not use accessory muscles and + not able to speak in complete sentence Auscultation: + diminished lung sounds and + wheezes (increased expiratory wheezing posterior lung kuo) Cardiovascular RRR, no murmur/r/g, no edema Chest: point tenderness reprocible with palpation L chest wall Gastrointestinal (Abdomen) normal bowel sounds, soft, nontender, no hepatosplenomegaly Musculoskeletal no cyanosis or clubbing, extremities motor strength 5/5 Skin no rashes, warm and dry sternotomy scaring. scarring to LE from harvesting for previous CABG Psychiatric A+Ox3, anxious affect Lymphatic no cervical or axillary lymphadenopathy PG Care Time/CCT Total # of Minutes Spent Total Time Spent with Patient: Total time spent is greater than 50% in coordination of care (as documented) at patient's floor/unit and/or counseling patient: Coding Level of Care Code 58812 Subseq Hosp Care Lvl 3 Diagnoses Asthma exacerbation J45.901 Stage III chronic kidney disease N18.3 Hypokalemia E87.6 Hepatic cirrhosis K74.60 Hepatic cirrhosis type: unspecified hepatic cirrhosis CAD (coronary artery disease) I25.10 Anemia D64.9 Controlled type 2 diabetes mellitus with kidney complication, with long-term current use of insulin E11.29; Z79.4 Depression F32.9 Diabetic peripheral neuropathy E11.42 Gastroparesis K31.84 Hypercholesterolemia E78.00 Hypertension I10 Hypothyroidism E03.[address] Z96.41 Irritable bowel syndrome K58.9 Obstructive sleep apnea G47.33 Secondary hyperparathyroidism of renal origin N25.81 Vitamin D deficiency E55.9 Constipation K59.00 DVT prophylaxis Z29.9 (1) Hepatic cirrhosis Hepatic cirrhosis type: unspecified hepatic cirrhosis
[2019-05-05] MEDS ORDERED: DOCUSATE SODIUM 100 MG CAP PO ONE (11:00)
[2019-05-05] MEDS ORDERED: ALBUT/IPRATROP 3MG/0.5MG NEB 3 ML VIAL NEB SCH (11:00)
--- NOTE | 2019-05-05 11:07 | XRay Report ---
XR chest 2V PA/lateral HISTORY: wheezing COMPARISON: Chest 05/03/2019. FINDINGS: No pneumothorax. No pleural effusions. The heart remains mildly enlarged. There are postste rnotomy changes. Slight prominence of interstitium markings which may be chronic. No evidence for pul monary edema. Linear density within the right lung base favor subsegmental atelectasis or scarring. IMPRESSION: Stable cardiomegaly and mild chronic interstitial thickening. Otherwise, no acute process within the chest. ACT 112: Negative or not required by law. Electronically signed by: Oskar Walsh M.D. 05/05/2019 11:06 AM
[2019-05-05] MEDS: DOXYCYCLINE HYCLATE 100 MG in DEXTROSE 5% 100 ML IV SCH ×2 (11:12→21:24)
[2019-05-05] MEDS: GUAIFENESIN/CODEINE 100MG/10MG 5ML UDC PO PRN (11:13)
[2019-05-05] MEDS: methylPREDNISolone 40 MG in SYRINGE 0 ML IV SCH ×2 (14:07→21:19)
[2019-05-05] MEDS: POLYETHYLENE (MIRALAX) 17 GM PACK PO SCH (14:07)
[2019-05-05] MEDS ORDERED: AMLODIPINE BESYLATE 5 MG TAB PO ONE (16:15)
[2019-05-05] MEDS: TRAZODONE HCL 50 MG TAB PO SCH (21:19)
[2019-05-06] MEDS: ALBUT/IPRATROP 3MG/0.5MG NEB 3 ML VIAL NEB SCH ×2 (03:06→06:49)
[2019-05-06] MEDS: LEVOTHYROXINE SODIUM 88 MCG TABLET PO SCH (05:28)
[2019-05-06 05:29] LABS: Basophils # (auto) 0.02 K/uL (0-0.2); Basophils % (auto) 0.5 %; Hematocrit (blood only) 31.2 % (37-47); Hemoglobin 9.7 g/dL (12.0-16.0); Immature Granulocytes # (auto) 0.07 K/uL (0.00-0.02); Immature Granulocytes % (auto) 1.6 %; Lymphocytes # (auto) 1.02 K/uL (1.2-3.4); Lymphocytes % (auto) 23.9 %; Mean Corpuscular Hgb Conc 31.1 g/dL (32-36); Mean Corpuscular Volume 93.4 fL (80-100); Mean Platelet Volume 10.6 fL (7.4-10.4); Monocytes # (auto) 0.27 K/uL (0.11-0.59); Monocytes % (auto) 6.3 %; Neutrophils # (auto) 2.89 K/uL (1.4-6.5); Neutrophils % (auto) 67.7 %; Platelet Count 108 K/uL (130-400); RDW Coefficient of Variation 14.7 % (11.5-14.5); RDW Standard Deviation 50.4 fL (36.4-46.3); Red Blood Count 3.34 M/uL (4.2-5.4); White Blood Count 4.27 K/uL (4.8-10.8)
[2019-05-06] MEDS: methylPREDNISolone 40 MG in SYRINGE 0 ML IV SCH ×2 (05:30→12:58)
[2019-05-06 05:38] LABS: INR 1.2 (0.9-1.1); Prothrombin Time 12.3 Seconds (9.0-12.0)
[2019-05-06 06:01] LABS: Polychromasia 1+
[2019-05-06 06:07] LABS: Albumin Level 3.1 gm/dl (3.4-5.0); BUN Creatinine Ratio 23.7 (10-20); Calcium 9.1 mg/dl (8.5-10.1); Creatinine Clr Calc Pharmacy 30.1 ml/min; Est GFR (African American) 29.5; Est GFR (Non-African American) 25.5; Potassium 4.9 mmol/L (3.5-5.1)
[2019-05-06 06:17] LABS: Albumin Globulin Ratio 0.9 (0.9-2); Bilirubin,Total 1.1 mg/dl (0.2-1); Globulin 3.6 gm/dl (2.5-4.0); Thyroid Stimulating Hormone 0.196 uIu/ml (0.300-4.500); Total Protein 6.7 gm/dl (6.4-8.2)
[2019-05-06] MEDS: CYANOCOBALAMIN 500 MCG TABLET (VITAMIN B-12) PO SCH (08:28)
[2019-05-06] MEDS: CALCIUM 600MG + VIT D 400 IU TAB PO SCH (08:28)
[2019-05-06] MEDS: SERTRALINE HCL 100 MG TABLET PO SCH (08:28)
[2019-05-06] MEDS: FAMOTIDINE 20 MG TAB PO SCH (08:28)
[2019-05-06] MEDS: EZETIMIBE 10 MG TABLET PO SCH (08:28)
[2019-05-06] MEDS: RANOLAZINE 500 MG ER TAB PO SCH ×2 (08:29→20:38)
[2019-05-06] MEDS: BENZONATATE 100 MG CAPSULE PO SCH ×3 (08:29→20:38)
[2019-05-06] MEDS: MONTELUKAST SODIUM 10 MG TABLET PO SCH (08:29)
[2019-05-06] MEDS: CLOPIDOGREL BISULFATE 75 MG TAB PO SCH (08:29)
[2019-05-06] MEDS: GABAPENTIN 100 MG CAP PO SCH ×2 (08:29→20:40)
[2019-05-06] MEDS: PANTOprazole 40 MG TAB PO SCH (08:29)
[2019-05-06] MEDS: guaiFENesin 600 MG TABCR PO SCH ×2 (08:29→20:39)
[2019-05-06] MEDS: CHOLECALCIFEROL 1,000 UNITS 25 MCG TAB PO SCH (08:30)
[2019-05-06] MEDS: ASPIRIN 81 MG ECTAB PO SCH (08:30)
[2019-05-06] MEDS: SUCRALFATE 1 GM TAB PO SCH ×4 (08:30→20:37)
[2019-05-06] MEDS: ROSUVASTATIN CALCIUM 20 MG TAB PO SCH (08:30)
[2019-05-06] MEDS: ISOSORBIDE MONO EXTENDED REL 60 MG TABCR PO SCH (08:30)
[2019-05-06] MEDS: NovoLOG INSULIN PUMP SCH ×4 (08:31→20:54)
[2019-05-06] MEDS: FLUTICASONE/VILANTEROL 200/25MCG 14 PUFFS/INHALER INH SCH (08:32)
[2019-05-06] MEDS: UMECLIDINIUM BROMIDE 62.5MCG/BLISTER 7 PUFFS/INHALER INH SCH (08:32)
[2019-05-06] MEDS: POLYETHYLENE (MIRALAX) 17 GM PACK PO SCH (08:33)
[2019-05-06] MEDS: METOPROLOL SUCC 50MG EXT REL TAB PO SCH (08:33)
[2019-05-06] MEDS: DOXYCYCLINE HYCLATE 100 MG in DEXTROSE 5% 100 ML IV SCH ×2 (09:40→20:40)
[2019-05-06] MEDS ORDERED: SODIUM CHLORIDE 0.45 % 500 ML IV SCH (09:45)
--- NOTE | 2019-05-06 11:36 | Hospitalist Progress Note ---
Date of Service May 06, 2019 Assessment & Plan (1) Asthma exacerbation: * Patient with moderate persistent asthma -- uses rescue inhaler 2x/daily at baseline, increased to 4x/daily recently in addition to home nebs, breo, incruse. * On admit- CXR negative for acute process, Flu negative. Trop negative x1. BNP 3144. No evidence of CHF/volume overload on exam * Repeat CXR ordered for increased wheezing on 05/04 which showed stable cardiomegaly and mild chronic interstitial thickening. Otherwise, no acute process. * Continue home Breo, Montelukast, Incruse * Continue mucinex 600mg BID, flutter valve, tessalon pearls, codeine cough syrup prn * Continue doxycycline (day 2 of therapy)-- had previously received doxy x 1 in ED on admission * Duonebs Q4 scheduled changed to Xopenex Q6 * Solumedrol to be discontinued this evening --> Will order 40mg PO prednisone starting 05/05 * ?Some component of underlying anxiety. Only on sertraline at home. May need increased. --> TSH checked, low at 0.196. FT4 wnl at 0.95 -- rec repeat TFT in 6 weeks * May need to consult pulmonology tomorrow if without significant improvement (2) Stage III chronic kidney disease: * Cr 1.7 on admission. Baseline had been 1.7-1.[address] Calixto outpatient note, however recently has been 2-2.3 Patient recently admitted to [facility] with Cr of 3 and K >7. At that time, ANGELI, spironolactone, and HCTZ discontinued. Recommended Ranexa 500mg BID (although Dr Bennett outpatient note had increased to 1,000mg BID, which is currently ordered) and her metoprolol was decreased from 100 to 50mg daily. They also recommended that patient be on lokemla 10g packet per day for hyperkalemia, although patient has not received. K currently 4.9 (repeat 4.2) *We do not have lokelma on formulary. If needed we could utilize parotimer. --Discussed medication options with inpatient nephrology team who suggested that we place patient on low potassium diet and consult press manager to provide patient with low potassium diet and that lokemla may not be neccessary at this time. -- Diet changed to Low Potassium. Food Dehydrator Operator consult placed. * Originally scheduled for fistula creation with Dr. Marcos for potential future use, however this was postponed due to recent COVID-19 issues * Follows with Dr. Calixto if needed. No current HD. Continue home calcitriol 0.5mcg 3x/weekly * Cr currently 1.97, BUN 47. BUN/Cr 23.7 -- slightly dehydrated on exam * IVF - 1/2 NSS @ 50cc/hr for total of 500cc to avoid volume overload * Continue to monitor (3) Hypokalemia: * RESOLVED * Recent admission to [facility] for hyperK related to renal disease --> 3.4 on admission -- did not replete due to recent hyperK * Of note, patient with recommendations to start Lokemla as above, although never started on admission. She had been taking 10g daily after discharge from [place] earlier this month. * Continue to monitor -- may need to start if potassium continues to increase * K 4.9 today however possible slight hemolysis -- repeat this afternoon with K 4.2 * Monitor AM labs (4) Hepatic cirrhosis: * States related to fatty liver, non-alcoholic. Denies abdominal pain. Of note, patient does have elevation of bilirubin noted on past lab draws * Patient supposed to have had MRI as outpatient but was never scheduled and followed up with [facility] without imaging. --> Supposed to have done soon, but we should make sure she is set up prior to discharge if not done inpatient. Patient denies abdominal pain at this time. * LFTs with mild elevation on admission trending down -- Tbili 1.1, AST 53, ALT 129, Alk phos 110 * INR elevated at 1.2 * Continue to monitor (5) CAD (coronary artery disease): * Hx of CABG 16 yrs ago -- per patient, she states her asthma worsened since this time. PCI August 2018 s/p stent to RCA. Follows locally with Dr. Bennett. * Medication changes earlier this month as above--> MTP decreased to 50mg and Ranexa 500mg BID. HCTZ, ANGELI, Spironolactone discontinued * Stress ECHO at that time with small sized, mild intensity perfusion defect involving apical segments and true apex that is reversible and most likely represents small area of myocardial ischemia. Per d/c summary -- no need for repeat cardiac catheterization and recommended follow-up outpatient with Dr. Bennett. Patient has not yet been to see him since discharge on 04/22 * Trop negative on admission. EKG SR with premature supraventricular complexes, nonspecific ST-T wave abnormality. No significant change compared to August 2018. * Per outpatient note from Dr. Bennett, patient to be on Ranexa 1,000mg PO BID * Continue home ASA, Plavix, Rosuvastatin, Metoprolol 50mg (6) Hypertension: * Secondary to recent discontinuation of HCTZ, ACEI, aldactone earlier this month. BP had been elevated throughout stay. Given amlodipine 5mg PO on both 05/03 and 05/04 * May need to restart one of the above medications if persists. Would discuss with nephrology prior to doing so. * BP 147/75 this morning * Continue to monitor (7) Anemia: * Baseline Hb ~10, 10.1 on admission * H/h improved to 9.7/31.2 * No overt s/sx bleeding * Continue to monitor (8) Controlled type 2 diabetes mellitus with kidney complication, with long-term current use of insulin: * Uses an automatic pump that checks BS Q5min and administers insulin PRN without other direction from pt. Pod changed yesterday. Family to bring additional supplies if needed. * A1c improved to 6.2. Follows locally with [facility] Gregory * Continue to monitor -- sugars acceptable (9) Depression: * Continue home sertraline (10) Diabetic peripheral neuropathy: * States gabapentin was decreased from TID to BID during recent [facility] [place] * Continue at BID dosing (11) Gastroparesis: * continue home meds * Pt takes zantac, which is on recall --> on famotidine 20mg BID while inpatient (12) Hypercholesterolemia: * continue home crestor, zetia (13) Hypertension: * Chronic. BP well controlled, 138/79 * Continue home metoprolol * Continue to monitor (14) Hypothyroidism: * Chronic. Stable. * Checked TSH -- low at 0.196. However, FT4 wnl, at 0.95. --> Rec outpatient TFT in 6 weeks * Continue home levothyroxine 88mcg (15) Insulin pump in place: * As noted above (16) Obstructive sleep apnea: * Uses CPAP at home -- ordered (17) Secondary hyperparathyroidism of renal origin: * Noted (18) Vitamin D deficiency: * Continue home meds (19) Constipation: * Hx IBS. Patient states she chronically has issues moving her bowels when in the hospital. No BM since admission. Denies abdominal pain. * Will add miralax/colace * Continue to monitor (20) DVT prophylaxis: * SCDs * Ambulation encouraged * Added SQ Lovenox -- will need to monitor platelets, currently 108 Dispo: likely to remain inpatient until Friday/Friday Admission and Anticipated Discharge Date Admission Date: May 03, 2019 Subjective Patient evaluated this morning. Continues to have shortness of breath with exertion, however she does not some mild improvement today. Cough productive of yellow sputum at time. Decreased in frequency with addition of cough syrup yesterday. States she has been ambulating up and around the room more over the past day and tries to stay up in the chair as much as possible. Denies any calf pain or history of PE/DVT in the past. Discussed changing steroids and nebulizers and antibiotics. She states she has had increased thirst over the past day and has been continuing to push fluids. Discussed that some element of deconditioning may have occurred with recent hospitalizations and that we will get PT/OT to work with her while here. Denies fever, chills, PND, abdominal fullness, n/v/d. No bowel movement but denies wanting any miralax at this time. Denies abdominal pain. Further discussion regarding lokelmla at discharge from [place]. She states she did in fact get this filled and had been taking this medication 10g daily, but that it cost her 600$ to fill. She states she had been taking [employer]. Discussed that I will discuss with pharmacy and provider to determine if we should continue a potassium binder given her K has been wnl without. Discussed repeat labs this afternoon due to possible elevation secondary to hemolysis this morning. Patient agreeable. Also discussed will arrange outpatient follow up for MRI for her cirrhosis prior to discharge. All questions/concerns addressed at this time. Review of Systems Review of Systems: All systems reviewed & are unremarkable except as noted in HPI & below Physical Exam Physical Exam: Constitutional WD/WN, vitals as above, obese no acute distress Eyes + anicteric sclerae and PERRL ENMT external ear and nose normal, oropharynx normal. Mallampati III Neck trachea midline, no thyromegaly Respiratory normal respiratory effort; no labored breathing, does not use accessory muscles and +able to speak in complete sentence Auscultation: + diminished lung sounds and + wheezes (faint end expiratory wheezing posterior lung kuo) Cardiovascular RRR, no murmur/r/g, no edema Gastrointestinal (Abdomen) normal bowel sounds, soft, nontender, no hepatosplenomegaly Musculoskeletal no cyanosis or clubbing, extremities motor strength 5/5 Skin no rashes, warm and dry sternotomy scaring. scarring to LE from harvesting for previous CABG Psychiatric A+Ox3, anxious affect Lymphatic no cervical or axillary lymphadenopathy Results & Data Results & Data ([facility]) Vital Signs (Past 12 Hours) Vital Signs Temp Pulse Pulse Resp BP Pulse Ox 05/06/19 07:30 36.6 C 76 20 147/75 H 96 05/06/19 06:49 73 18 96 05/06/19 03:06 68 68 14 96 Laboratory Results 05/06/19 05/06/19 05/06/19 Range/Units 13:01 12:23 11:58 WBC (4.8-10.8) K/uL RBC (4.2-5.4) M/uL Hgb (12.0-16.0) g/dL Hct (37-47) % MCV (80-100) fL MCH (25-34) pg MCHC (32-36) g/dL RDW Std Deviation (36.4-46.3) fL RDW Coeff of Gomez (11.5-14.5) % Plt Count (130-400) K/uL MPV (7.4-10.4) fL Immature Gran % (Auto) % Neut % (Auto) % Lymph % (Auto) % [place] % (Auto) % Eos % (Auto) % Baso % (Auto) % Immature Gran # (Auto) (0.00-0.02) K/uL Neut # (Auto) (1.4-6.5) K/uL Lymph # (Auto) (1.2-3.4) K/uL [place] # (Auto) (0.11-0.59) K/uL Eos # (Auto) (0-0.5) K/uL Baso # (Auto) (0-0.2) K/uL Polychromasia PT (9.0-12.0) Seconds INR (0.9-1.1) Sodium 139 (136-145) mmol/L Potassium Pending (3.5-5.1) mmol/L Chloride 111 H (98-107) mmol/L Carbon Dioxide 23 (21-32) mmol/L Anion Gap 5.0 (3-11) BUN 47 H (7-18) mg/dl Creatinine 1.94 H (0.6-1.2) mg/dl Est Cr Clr Drug Dosing 30.3 ml/min Est GFR ( Amer) 30.1 Est GFR (Non-Af Amer) 26.0 BUN/Creatinine Ratio 24.3 H (10-20) Glucose 117 H (70-99) mg/dl POC Glucose 135 H (70-99) mg/dl Calcium 9.1 (8.5-10.1) mg/dl Total Bilirubin (0.2-1) mg/dl AST (15-37) U/L ALT (12-78) U/L Alkaline Phosphatase (45-117) U/L Total Protein (6.4-8.2) gm/dl Albumin (3.4-5.0) gm/dl Globulin (2.5-4.0) gm/dl Albumin/Globulin Ratio (0.9-2) TSH (0.300-4.500) uIu/ml Free T4 (0.8-1.6) ng/dl Specimen Hemolysis 05/06/19 05/06/19 05/06/19 Range/Units 08:03 05:10 05:10 WBC 4.27 L (4.8-10.8) K/uL RBC 3.34 L (4.2-5.4) M/uL Hgb 9.7 L (12.0-16.0) g/dL Hct 31.2 L (37-47) % MCV 93.4 (80-100) fL MCH 29.0 (25-34) pg MCHC 31.1 L (32-36) g/dL RDW Std Deviation 50.4 H (36.4-46.3) fL RDW Coeff of Gomez 14.7 H (11.5-14.5) % Plt Count 108 L (130-400) K/uL MPV 10.6 H (7.4-10.4) fL Immature Gran % (Auto) 1.6 % Neut % (Auto) 67.7 % Lymph % (Auto) 23.9 % [place] % (Auto) 6.3 % Eos % (Auto) 0.0 % Baso % (Auto) 0.5 % Immature Gran # (Auto) 0.07 H (0.00-0.02) K/uL Neut # (Auto) 2.89 (1.4-6.5) K/uL Lymph # (Auto) 1.02 L (1.2-3.4) K/uL [place] # (Auto) 0.27 (0.11-0.59) K/uL Eos # (Auto) 0.00 (0-0.5) K/uL Baso # (Auto) 0.02 (0-0.2) K/uL Polychromasia 1+ PT (9.0-12.0) Seconds INR (0.9-1.1) Sodium (136-145) mmol/L Potassium (3.5-5.1) mmol/L Chloride (98-107) mmol/L Carbon Dioxide (21-32) mmol/L Anion Gap (3-11) BUN (7-18) mg/dl Creatinine (0.6-1.2) mg/dl Est Cr Clr Drug Dosing ml/min Est GFR ( Amer) Est GFR (Non-Af Amer) BUN/Creatinine Ratio (10-20) Glucose (70-99) mg/dl POC Glucose 105 H (70-99) mg/dl Calcium (8.5-10.1) mg/dl Total Bilirubin (0.2-1) mg/dl AST (15-37) U/L ALT (12-78) U/L Alkaline Phosphatase (45-117) U/L Total Protein (6.4-8.2) gm/dl Albumin (3.4-5.0) gm/dl Globulin (2.5-4.0) gm/dl Albumin/Globulin Ratio (0.9-2) TSH (0.300-4.500) uIu/ml Free T4 0.95 (0.8-1.6) ng/dl Specimen Hemolysis 05/06/19 05/06/19 05/05/19 Range/Units 05:10 05:10 21:01 WBC (4.8-10.8) K/uL RBC (4.2-5.4) M/uL Hgb (12.0-16.0) g/dL Hct (37-47) % MCV (80-100) fL MCH (25-34) pg MCHC (32-36) g/dL RDW Std Deviation (36.4-46.3) fL RDW Coeff of Gomez (11.5-14.5) % Plt Count (130-400) K/uL MPV (7.4-10.4) fL Immature Gran % (Auto) % Neut % (Auto) % Lymph % (Auto) % [place] % (Auto) % Eos % (Auto) % Baso % (Auto) % Immature Gran # (Auto) (0.00-0.02) K/uL Neut # (Auto) (1.4-6.5) K/uL Lymph # (Auto) (1.2-3.4) K/uL [place] # (Auto) (0.11-0.59) K/uL Eos # (Auto) (0-0.5) K/uL Baso # (Auto) (0-0.2) K/uL Polychromasia PT 12.3 H (9.0-12.0) Seconds INR 1.2 H (0.9-1.1) Sodium 138 (136-145) mmol/L Potassium 4.9 D (3.5-5.1) mmol/L Chloride 114 H (98-107) mmol/L Carbon Dioxide 21 (21-32) mmol/L Anion Gap 3.0 (3-11) BUN 47 H (7-18) mg/dl Creatinine 1.97 H (0.6-1.2) mg/dl Est Cr Clr Drug Dosing 30.1 ml/min Est GFR ( Amer) 29.5 Est GFR (Non-Af Amer) 25.5 BUN/Creatinine Ratio 23.7 H (10-20) Glucose 105 H (70-99) mg/dl POC Glucose 177 H (70-99) mg/dl Calcium 9.1 (8.5-10.1) mg/dl Total Bilirubin 1.1 H (0.2-1) mg/dl AST 53 H (15-37) U/L ALT 129 H (12-78) U/L Alkaline Phosphatase 110 (45-117) U/L Total Protein 6.7 (6.4-8.2) gm/dl Albumin 3.1 L (3.4-5.0) gm/dl Globulin 3.6 (2.5-4.0) gm/dl Albumin/Globulin Ratio 0.9 (0.9-2) TSH 0.196 L (0.300-4.500) uIu/ml Free T4 (0.8-1.6) ng/dl Specimen Hemolysis 05/05/19 Range/Units 17:03 WBC (4.8-10.8) K/uL RBC (4.2-5.4) M/uL Hgb (12.0-16.0) g/dL Hct (37-47) % MCV (80-100) fL MCH (25-34) pg MCHC (32-36) g/dL RDW Std Deviation (36.4-46.3) fL RDW Coeff of Gomez (11.5-14.5) % Plt Count (130-400) K/uL MPV (7.4-10.4) fL Immature Gran % (Auto) % Neut % (Auto) % Lymph % (Auto) % [place] % (Auto) % Eos % (Auto) % Baso % (Auto) % Immature Gran # (Auto) (0.00-0.02) K/uL Neut # (Auto) (1.4-6.5) K/uL Lymph # (Auto) (1.2-3.4) K/uL [place] # (Auto) (0.11-0.59) K/uL Eos # (Auto) (0-0.5) K/uL Baso # (Auto) (0-0.2) K/uL Polychromasia PT (9.0-12.0) Seconds INR (0.9-1.1) Sodium (136-145) mmol/L Potassium (3.5-5.1) mmol/L Chloride (98-107) mmol/L Carbon Dioxide (21-32) mmol/L Anion Gap (3-11) BUN (7-18) mg/dl Creatinine (0.6-1.2) mg/dl Est Cr Clr Drug Dosing ml/min Est GFR ( Amer) Est GFR (Non-Af Amer) BUN/Creatinine Ratio (10-20) Glucose (70-99) mg/dl POC Glucose 150 H (70-99) mg/dl Calcium (8.5-10.1) mg/dl Total Bilirubin (0.2-1) mg/dl AST (15-37) U/L ALT (12-78) U/L Alkaline Phosphatase (45-117) U/L Total Protein (6.4-8.2) gm/dl Albumin (3.4-5.0) gm/dl Globulin (2.5-4.0) gm/dl Albumin/Globulin Ratio (0.9-2) TSH (0.300-4.500) uIu/ml Free T4 (0.8-1.6) ng/dl Specimen Hemolysis PG Care Time/CCT Total # of Minutes Spent Total Time Spent with Patient: Total time spent is greater than 50% in coordination of care (as documented) at patient's floor/unit and/or counseling patient: Coding Level of Care Code 50494 Subseq Hosp Care Lvl 3 Diagnoses Asthma exacerbation J45.901 Stage III chronic kidney disease N18.3 Hypokalemia E87.6 Hepatic cirrhosis K74.60 Hepatic cirrhosis type: unspecified hepatic cirrhosis CAD (coronary artery disease) I25.10 Hypertension I10 Anemia D64.9 Controlled type 2 diabetes mellitus with kidney complication, with long-term current use of insulin E11.29; Z79.4 Depression F32.9 Diabetic peripheral neuropathy E11.42 Gastroparesis K31.84 Hypercholesterolemia E78.00 Hypertension I10 Hypothyroidism E03.[address] Z96.41 Obstructive sleep apnea G47.33 Secondary hyperparathyroidism of renal origin N25.81 Vitamin D deficiency E55.9 Constipation K59.00 DVT prophylaxis Z29.9 (1) Hepatic cirrhosis Hepatic cirrhosis type: unspecified hepatic cirrhosis
[2019-05-06 12:52] LABS: BUN Creatinine Ratio 24.3 (10-20); Calcium 9.1 mg/dl (8.5-10.1); Creatinine Clr Calc Pharmacy 30.3 ml/min; Est GFR (African American) 30.1
[2019-05-06] MEDS: LEVALBUTEROL HCL 0.63 MG/3 ML NEB NEB SCH ×2 (13:08→19:01)
[2019-05-06] MEDS: ENOXAPARIN INJ 40 MG/0.4 ML SYR SQ SCH (15:26)
[2019-05-06] MEDS ORDERED: AMLODIPINE BESYLATE 5 MG TAB PO ONE (16:14)
[2019-05-06] MEDS: TRAZODONE HCL 50 MG TAB PO SCH (20:40)
[2019-05-07] MEDS: LEVALBUTEROL HCL 0.63 MG/3 ML NEB NEB SCH ×4 (01:09→19:01)
[2019-05-07] MEDS: LEVOTHYROXINE SODIUM 88 MCG TABLET PO SCH (05:23)
[2019-05-07 05:38] LABS: Hematocrit (blood only) 30.9 % (37-47); Hemoglobin 9.6 g/dL (12.0-16.0); Immature Granulocytes # (auto) 0.08 K/uL (0.00-0.02); Immature Granulocytes % (auto) 1.4 %; Lymphocytes # (auto) 1.43 K/uL (1.2-3.4); Lymphocytes % (auto) 25.8 %; Mean Corpuscular Hemoglobin 29.4 pg (25-34); Mean Corpuscular Hgb Conc 31.1 g/dL (32-36); Mean Corpuscular Volume 94.8 fL (80-100); Mean Platelet Volume 9.3 fL (7.4-10.4); Monocytes # (auto) 0.54 K/uL (0.11-0.59); Monocytes % (auto) 9.7 %; Neutrophils # (auto) 3.49 K/uL (1.4-6.5); Neutrophils % (auto) 63.1 %; Platelet Count 145 K/uL (130-400); RDW Coefficient of Variation 14.8 % (11.5-14.5); RDW Standard Deviation 50.7 fL (36.4-46.3); Red Blood Count 3.26 M/uL (4.2-5.4); White Blood Count 5.54 K/uL (4.8-10.8)
[2019-05-07 05:48] LABS: INR 1.1 (0.9-1.1); Prothrombin Time 11.9 Seconds (9.0-12.0)
[2019-05-07 06:07] LABS: Albumin Level 3.1 gm/dl (3.4-5.0); BUN Creatinine Ratio 26.8 (10-20); Calcium 8.8 mg/dl (8.5-10.1); Creatinine Clr Calc Pharmacy 29.1 ml/min; Est GFR (African American) 28.5; Est GFR (Non-African American) 24.6; Potassium 3.9 mmol/L (3.5-5.1)
[2019-05-07 06:10] LABS: Albumin Globulin Ratio 0.9 (0.9-2); Bilirubin,Total 1.1 mg/dl (0.2-1); Globulin 3.6 gm/dl (2.5-4.0); Total Protein 6.7 gm/dl (6.4-8.2)
[2019-05-07] MEDS: SUCRALFATE 1 GM TAB PO SCH ×4 (07:43→20:59)
[2019-05-07] MEDS: FLUTICASONE/VILANTEROL 200/25MCG 14 PUFFS/INHALER INH SCH (07:44)
[2019-05-07] MEDS: guaiFENesin 600 MG TABCR PO SCH ×2 (07:45→20:58)
[2019-05-07] MEDS: POLYETHYLENE (MIRALAX) 17 GM PACK PO SCH (07:45)
[2019-05-07] MEDS: ROSUVASTATIN CALCIUM 20 MG TAB PO SCH (07:46)
[2019-05-07] MEDS: GABAPENTIN 100 MG CAP PO SCH ×2 (07:46→20:59)
[2019-05-07] MEDS: PANTOprazole 40 MG TAB PO SCH (07:47)
[2019-05-07] MEDS: CLOPIDOGREL BISULFATE 75 MG TAB PO SCH (07:47)
[2019-05-07] MEDS: CALCIUM 600MG + VIT D 400 IU TAB PO SCH (07:47)
[2019-05-07] MEDS: predniSONE 20 MG TAB PO SCH (07:48)
[2019-05-07] MEDS: ASPIRIN 81 MG ECTAB PO SCH (07:48)
[2019-05-07] MEDS: ISOSORBIDE MONO EXTENDED REL 60 MG TABCR PO SCH (07:49)
[2019-05-07] MEDS: MONTELUKAST SODIUM 10 MG TABLET PO SCH (07:49)
[2019-05-07] MEDS: FAMOTIDINE 20 MG TAB PO SCH (07:50)
[2019-05-07] MEDS: CALCITRIOL 0.25 MCG CAPSULE PO SCH (07:50)
[2019-05-07] MEDS: CYANOCOBALAMIN 500 MCG TABLET (VITAMIN B-12) PO SCH (07:50)
[2019-05-07] MEDS: EZETIMIBE 10 MG TABLET PO SCH (07:51)
[2019-05-07] MEDS: RANOLAZINE 500 MG ER TAB PO SCH ×2 (07:51→20:57)
[2019-05-07] MEDS: METOPROLOL SUCC 50MG EXT REL TAB PO SCH (07:51)
[2019-05-07] MEDS: CHOLECALCIFEROL 1,000 UNITS 25 MCG TAB PO SCH (07:52)
[2019-05-07] MEDS: BENZONATATE 100 MG CAPSULE PO SCH ×3 (07:52→21:00)
[2019-05-07] MEDS: UMECLIDINIUM BROMIDE 62.5MCG/BLISTER 7 PUFFS/INHALER INH SCH (07:53)
[2019-05-07] MEDS: ENOXAPARIN INJ 40 MG/0.4 ML SYR SQ SCH (07:54)
[2019-05-07] MEDS: CARBOHYDRATES FOR HYPOGLYCEMIA PO PRN (08:10)
[2019-05-07] MEDS: SERTRALINE HCL 100 MG TABLET PO SCH (09:28)
[2019-05-07] MEDS: NovoLOG INSULIN PUMP SCH ×4 (09:30→21:00)
[2019-05-07] MEDS ORDERED: SPIRONOLACTONE 25 MG TAB PO ONE (10:11)
--- NOTE | 2019-05-07 10:19 | Hospitalist Progress Note ---
Date of Service May 07, 2019 Assessment & Plan (1) Asthma exacerbation: * Patient with moderate persistent asthma -- uses rescue inhaler 2x/daily at baseline, increased to 4x/daily recently in addition to home nebs, breo, incruse. * On admit- CXR negative for acute process, Flu negative. Trop negative x1. BNP 3144. No evidence of CHF/volume overload on exam * Repeat CXR ordered for increased wheezing on 05/04 which showed stable cardiomegaly and mild chronic interstitial thickening. Otherwise, no acute process. * Continue home Breo, Montelukast, Incruse * Continue mucinex 600mg BID, flutter valve, tessalon pearls, codeine cough syrup prn * Continue doxycycline (day 2 of therapy)-- had previously received doxy x 1 in ED on admission * Duonebs Q4 scheduled changed to Xopenex Q6 -- will continue as patient states she has noticed improvement * Prednisone 40mg PO --> decrease to 30mg starting 05/08 * ?Some component of underlying anxiety. Only on sertraline at home. May need increased. --> TSH checked, low at 0.196. FT4 wnl at 0.95 -- rec repeat TFT in 6 weeks * May need to consult pulmonology tomorrow if without significant improvement -- case discussed with inpatient pulmonary team. --> Recommended obtaining [facility]. If no significant improvement, they would be happy to see patient and perform formal consultation tomorrow. (2) Stage III chronic kidney disease: * Cr 1.7 on admission. Baseline had been 1.7-1.[address] Marily cr note, however recently has been 2-2.3 Patient recently admitted to [facility] with Cr of 3 and K >7. At that time, ANGELI, spironolactone, and HCTZ discontinued. Recommended Ranexa 500mg BID (although Dr Bennett outpatient note had increased to 1,000mg BID, which is currently ordered) and her metoprolol was decreased from 100 to 50mg daily. They also recommended that patient be on lokemla 10g packet per day for hyperkalemia, although patient has not received. K currently 3.9 *We do not have lokelma on formulary. If needed, could utilize parotimer. --Discussed medication options with inpatient nephrology team who suggested that we place patient on low potassium diet and consult medical assistant float to provide patient with low potassium diet and that lokemla may not be necessary at this time. -- Diet changed to Low Potassium. Endocrinologist consult placed. --Discussion again on 05/06 -- rec resuming spironolactone over losartan and continue to monitor potassium. K 3.9 on labs * Originally scheduled for fistula creation with Dr. Marcos for potential future use, however this was postponed due to recent COVID-19 issues * Follows with Dr. Calixto if needed (case discussed with Dr. Whitehead). No current HD. Continue home calcitriol 0.5mcg 3x/weekly * Cr currently 2.03, BUN 54 * IVF - 02/11 NSS @ 50cc/hr for total of 500cc to avoid volume overload on 05/05. No further IVF. Appears euvolemic on exam. * Continue to monitor (3) Hypokalemia: * RESOLVED * Recent admission to [facility] for hyperK related to renal disease --> 3.4 on admission -- did not replete due to recent hyperK * Of note, patient with recommendations to start Lokemla as above, although never started on admission. She had been taking 10g daily after discharge from [place] earlier this month. See above. None for now * K 3.9 * Monitor AM labs (4) Hepatic cirrhosis: * States related to fatty liver, non-alcoholic. Denies abdominal pain. Of note, patient does have elevation of bilirubin noted on past lab draws * Patient supposed to have had MRI as outpatient but was never scheduled and followed up with [facility] without imaging. --> Supposed to have done soon, but we should make sure she is set up prior to discharge if not done inpatient. Patient denies abdominal pain at this time. * LFTs with mild elevation on admission trending down -- Tbili 1.1, AST 46, ALT 115, Alk phos 104 * INR back to normal at 1.1 * Continue to monitor (5) CAD (coronary artery disease): * Hx of CABG 16 yrs ago -- per patient, she states her asthma worsened since this time. PCI August 2018 s/p stent to RCA. Follows locally with Dr. Bennett. * Medication changes earlier this month as above--> MTP decreased to 50mg and Ranexa 500mg BID. HCTZ, ANGELI, Spironolactone discontinued * Stress ECHO at that time with small sized, mild intensity perfusion defect involving apical segments and true apex that is reversible and most likely represents small area of myocardial ischemia. Per d/c summary -- no need for repeat cardiac catheterization and recommended follow-up outpatient with Dr. Bennett. Patient has not yet been to see him since discharge on 04/22 * Trop negative on admission. EKG SR with premature supraventricular complexes, nonspecific ST-T wave abnormality. No significant change compared to August 2018. * Per outpatient note from Dr. Bennett, patient to be on Ranexa 1,000mg PO BID * Continue home ASA, Plavix, Rosuvastatin, Metoprolol 50mg (6) Anemia: * Baseline Hb ~10, 10.1 on admission * H/h stable at 9.6/30.9 -- did receive IVF 05/05 * No overt s/sx bleeding * Continue to monitor (7) Controlled type 2 diabetes mellitus with kidney complication, with long-term current use of insulin: * Uses an automatic pump that checks BS Q5min and administers insulin PRN without other direction from pt. Pod changed yesterday. Family to bring additional supplies if needed. * A1c improved to 6.2. Follows locally with MEREDITH Gregory * Continue to monitor -- sugars acceptable. Low of 47 today, although patient states this does occasionally happen * If happens again, may want to have patient switched over to ISS while inpatient so that we can more closely monitor (8) Depression: * Continue home sertraline (9) Diabetic peripheral neuropathy: * States gabapentin was decreased from TID to BID during recent [facility] admi ssion * Continue at BID dosing (10) Gastroparesis: * continue home meds * Pt takes zantac, which is on recall --> on famotidine 20mg BID while inpatient (11) Hypercholesterolemia: * continue home crestor zetia (12) Hypertension: * Chronic. BP elevated 159/74 * Continue home metoprolol * Discussed with nephro--- rec restarting prior spironolactone 50mg PO daily * Continue to monitor (13) Hypothyroidism: * Chronic. Stable. * Checked TSH -- low at 0.196. However, FT4 wnl, at 0.95. --> Rec outpatient TFT in 6 weeks * Continue home levothyroxine 88mcg (14) Insulin pump in place: * As noted above (15) Irritable bowel syndrome: * Continue home meds (16) Obstructive sleep apnea: * Uses CPAP at home -- ordered (17) Secondary hyperparathyroidism of renal origin: * Noted (18) Vitamin D deficiency: * Continue home meds (19) Constipation: * Hx IBS. Patient states she chronically has issues moving her bowels when in the hospital. No BM since admission. * Will add miralax/colace -- additional dose of colace ordered. Patient would not like to use miralax. No abd pain at this time. * Continue to monitor (20) Chest pain: * Reported episode overnight, no further CP reported. * Trop added to AM labs -- elevated at 0.026 * Repeat 0.018 -- likely secondary to elevated BP. As discussed with nephrology, spironolactone initiated at 50mg PO daily. * EKG performed which showed some ST-T wave abnormalities, T wave inversion lateral leads * Cardiology consulted -- appreciate input (21) DVT prophylaxis: * SCDs * Ambulation encouraged * Added SQ Lovenox -- will need to monitor platelets, currently 108 Dispo: likely to remain inpatient until Friday/Friday Admission and Anticipated Discharge Date Admission Date: May 03, 2019 Subjective Patient feeling slightly improved today. Still with dyspnea with exertion. Cough continues to be productive. Patient states she has been clearing more yellow sputum lately. Had episode of left sided chest discomfort last night which laste d a few minutes and resolved, while she was in bed. She states she has not had an recurrence of this since that time but states she has had this issue in the past and has been following with Dr. Bennett, and is why her Ranexa was increased. She states in the past she had pain between her shoulder blades, but this was not present last night when the pain occurred. No BM, but states this is not abnormal. States she would be willing to do another dose of colace but would prefer to stay away from the miralax. She denies abdominal pain at this time. Denies fevers, chills, headache, n/v/d. Review of Systems Review of Systems: All systems reviewed & are unremarkable except as noted in HPI & below Physical Exam Physical Exam: Constitutional WD/WN, vitals as above, obese no acute distress Eyes + anicteric sclerae and PERRL ENMT external ear and nose normal, oropharynx normal. Mallampati III Neck trachea midline, no thyromegaly Respiratory normal respiratory effort; no labored breathing, does not use accessory muscles and +able to speak in complete sentence Auscultation: + diminished lung sounds and + wheezes (faint end expiratory wheezing posterior lung kuo), left anterior inspiratory wheezing, minimal Cardiovascular RRR, no murmur/r/g, no edema Gastrointestinal (Abdomen) normal bowel sounds, soft, nontender, no hepatosplenomegaly ecchymosis from previous injection site Musculoskeletal no cyanosis or clubbing, extremities motor strength 5/5 Skin no rashes, warm and dry sternotomy scaring. scarring to LE from harvesting for previous CABG Psychiatric A+Ox3 Lymphatic no cervical or axillary lymphadenopathy Results & Data Results & Data ([facility]) Vital Signs (Past 12 Hours) Vital Signs Temp Pulse Pulse Resp BP BP Pulse Ox 05/07/19 07:28 75 20 93 05/07/19 07:14 36.4 C L 75 20 159/74 H 96 05/07/19 03:52 70 21 93 05/07/19 01:09 65 18 96 05/06/19 23:35 160/71 H 05/06/19 23:33 36.5 C 68 16 160/69 H 95 05/06/19 23:19 76 16 95 Laboratory Results 05/07/19 05/07/19 05/07/19 Range/Units 08:24 08:06 04:54 WBC (4.8-10.8) K/uL RBC (4.2-5.4) M/uL Hgb (12.0-16.0) g/dL Hct (37-47) % MCV (80-100) fL MCH (25-34) pg MCHC (32-36) g/dL RDW Std Deviation (36.4-46.3) fL RDW Coeff of Gomez (11.5-14.5) % Plt Count (130-400) K/uL MPV (7.4-10.4) fL Immature Gran % (Auto) % Neut % (Auto) % Lymph % (Auto) % Trigg % (Auto) % Eos % (Auto) % Baso % (Auto) % Immature Gran # (Auto) (0.00-0.02) K/uL Neut # (Auto) (1.4-6.5) K/uL Lymph # (Auto) (1.2-3.4) K/uL Trigg # (Auto) (0.11-0.59) K/uL Eos # (Auto) (0-0.5) K/uL Baso # (Auto) (0-0.2) K/uL PT (9.0-12.0) Seconds INR (0.9-1.1) Sodium (136-145) mmol/L Potassium (3.5-5.1) mmol/L Chloride (98-107) mmol/L Carbon Dioxide (21-32) mmol/L Anion Gap (3-11) BUN (7-18) mg/dl Creatinine (0.6-1.2) mg/dl Est Cr Clr Drug Dosing ml/min Est GFR ( Amer) Est GFR (Non-Af Amer) BUN/Creatinine Ratio (10-20) Glucose (70-99) mg/dl POC Glucose 75 49 L* (70-99) mg/dl Calcium (8.5-10.1) mg/dl Total Bilirubin (0.2-1) mg/dl AST (15-37) U/L ALT (12-78) U/L Alkaline Phosphatase (45-117) U/L Troponin I 0.026 (0-0.045) ng/ml Total Protein (6.4-8.2) gm/dl Albumin (3.4-5.0) gm/dl Globulin (2.5-4.0) gm/dl Albumin/Globulin Ratio (0.9-2) 05/07/19 05/07/19 05/07/19 Range/Units 04:54 04:54 04:54 WBC 5.54 (4.8-10.8) K/uL RBC 3.26 L (4.2-5.4) M/uL Hgb 9.6 L (12.0-16.0) g/dL Hct 30.9 L (37-47) % MCV 94.8 (80-100) fL MCH 29.4 (25-34) pg MCHC 31.1 L (32-36) g/dL RDW Std Deviation 50.7 H (36.4-46.3) fL RDW Coeff of Gomez 14.8 H (11.5-14.5) % Plt Count 145 (130-400) K/uL MPV 9.3 (7.4-10.4) fL Immature Gran % (Auto) 1.4 % Neut % (Auto) 63.1 % Lymph % (Auto) 25.8 % Trigg % (Auto) 9.7 % Eos % (Auto) 0.0 % Baso % (Auto) 0.0 % Immature Gran # (Auto) 0.08 H (0.00-0.02) K/uL Neut # (Auto) 3.49 (1.4-6.5) K/uL Lymph # (Auto) 1.43 (1.2-3.4) K/uL Trigg # (Auto) 0.54 (0.11-0.59) K/uL Eos # (Auto) 0.00 (0-0.5) K/uL Baso # (Auto) 0.00 (0-0.2) K/uL PT 11.9 (9.0-12.0) Seconds INR 1.1 (0.9-1.1) Sodium 141 (136-145) mmol/L Potassium 3.9 (3.5-5.1) mmol/L Chloride 113 H (98-107) mmol/L Carbon Dioxide 24 (21-32) mmol/L Anion Gap 4.0 (3-11) BUN 54 H (7-18) mg/dl Creatinine 2.03 H (0.6-1.2) mg/dl Est Cr Clr Drug Dosing 29.1 ml/min Est GFR ( Amer) 28.5 Est GFR (Non-Af Amer) 24.6 BUN/Creatinine Ratio 26.8 H (10-20) Glucose 61 L (70-99) mg/dl POC Glucose (70-99) mg/dl Calcium 8.8 (8.5-10.1) mg/dl Total Bilirubin 1.1 H (0.2-1) mg/dl AST 46 H (15-37) U/L ALT 115 H (12-78) U/L Alkaline Phosphatase 104 (45-117) U/L Troponin I (0-0.045) ng/ml Total Protein 6.7 (6.4-8.2) gm/dl Albumin 3.1 L (3.4-5.0) gm/dl Globulin 3.6 (2.5-4.0) gm/dl Albumin/Globulin Ratio 0.9 (0.9-2) 05/06/19 05/06/19 05/06/19 Range/Units 20:51 17:07 13:01 WBC (4.8-10.8) K/uL RBC (4.2-5.4) M/uL Hgb (12.0-16.0) g/dL Hct (37-47) % MCV (80-100) fL MCH (25-34) pg MCHC (32-36) g/dL RDW Std Deviation (36.4-46.3) fL RDW Coeff of Gomez (11.5-14.5) % Plt Count (130-400) K/uL MPV (7.4-10.4) fL Immature Gran % (Auto) % Neut % (Auto) % Lymph % (Auto) % Trigg % (Auto) % Eos % (Auto) % Baso % (Auto) % Immature Gran # (Auto) (0.00-0.02) K/uL Neut # (Auto) (1.4-6.5) K/uL Lymph # (Auto) (1.2-3.4) K/uL Trigg # (Auto) (0.11-0.59) K/uL Eos # (Auto) (0-0.5) K/uL Baso # (Auto) (0-0.2) K/uL PT (9.0-12.0) Seconds INR (0.9-1.1) Sodium (136-145) mmol/L Potassium 4.2 (3.5-5.1) mmol/L Chloride (98-107) mmol/L Carbon Dioxide (21-32) mmol/L Anion Gap (3-11) BUN (7-18) mg/dl Creatinine (0.6-1.2) mg/dl Est Cr Clr Drug Dosing ml/min Est GFR ( Amer) Est GFR (Non-Af Amer) BUN/Creatinine Ratio (10-20) Glucose (70-99) mg/dl POC Glucose 97 88 (70-99) mg/dl Calcium (8.5-10.1) mg/dl Total Bilirubin (0.2-1) mg/dl AST (15-37) U/L ALT (12-78) U/L Alkaline Phosphatase (45-117) U/L Troponin I (0-0.045) ng/ml Total Protein (6.4-8.2) gm/dl Albumin (3.4-5.0) gm/dl Globulin (2.5-4.0) gm/dl Albumin/Globulin Ratio (0.9-2) 05/06/19 05/06/19 Range/Units 12:23 11:58 WBC (4.8-10.8) K/uL RBC (4.2-5.4) M/uL Hgb (12.0-16.0) g/dL Hct (37-47) % MCV (80-100) fL MCH (25-34) pg MCHC (32-36) g/dL RDW Std Deviation (36.4-46.3) fL RDW Coeff of Gomez (11.5-14.5) % Plt Count (130-400) K/uL MPV (7.4-10.4) fL Immature Gran % (Auto) % Neut % (Auto) % Lymph % (Auto) % Trigg % (Auto) % Eos % (Auto) % Baso % (Auto) % Immature Gran # (Auto) (0.00-0.02) K/uL Neut # (Auto) (1.4-6.5) K/uL Lymph # (Auto) (1.2-3.4) K/uL Trigg # (Auto) (0.11-0.59) K/uL Eos # (Auto) (0-0.5) K/uL Baso # (Auto) (0-0.2) K/uL PT (9.0-12.0) Seconds INR (0.9-1.1) Sodium 139 (136-145) mmol/L Potassium (3.5-5.1) mmol/L Chloride 111 H (98-107) mmol/L Carbon Dioxide 23 (21-32) mmol/L Anion Gap 5.0 (3-11) BUN 47 H (7-18) mg/dl Creatinine 1.94 H (0.6-1.2) mg/dl Est Cr Clr Drug Dosing 30.3 ml/min Est GFR ( Amer) 30.1 Est GFR (Non-Af Amer) 26.0 BUN/Creatinine Ratio 24.3 H (10-20) Glucose 117 H (70-99) mg/dl POC Glucose 135 H (70-99) mg/dl Calcium 9.1 (8.5-10.1) mg/dl Total Bilirubin (0.2-1) mg/dl AST (15-37) U/L ALT (12-78) U/L Alkaline Phosphatase (45-117) U/L Troponin I (0-0.045) ng/ml Total Protein (6.4-8.2) gm/dl Albumin (3.4-5.0) gm/dl Globulin (2.5-4.0) gm/dl Albumin/Globulin Ratio (0.9-2) Diagnostic Findings EKG SR with sinus arrhythmia, ST-T wave abn, consider inferior ischemia 67bpm PG Care Time/CCT Total # of Minutes Spent Total Time Spent with Patient: Total time spent is greater than 50% in coordination of care (as documented) at patient's floor/unit and/or counseling patient: Coding Level of Care Code 84266 Subseq Hosp Care Lvl 3 Diagnoses Asthma exacerbation J45.901 Stage III chronic kidney disease N18.3 Hypokalemia E87.6 Hepatic cirrhosis K74.60 Hepatic cirrhosis type: unspecified hepatic cirrhosis CAD (coronary artery disease) I25.10 Anemia D64.9 Controlled type 2 diabetes mellitus with kidney complication, with long-term current use of insulin E11.29; Z79.4 Depression F32.9 Diabetic peripheral neuropathy E11.42 Gastroparesis K31.84 Hypercholesterolemia E78.00 Hypertension I10 Hypothyroidism E03.[address] Z96.41 Irritable bowel syndrome K58.9 Obstructive sleep apnea G47.33 Secondary hyperparathyroidism of renal origin N25.81 Vitamin D deficiency E55.9 Constipation K59.00 Chest pain R07.9 DVT prophylaxis Z29.9 (1) Hepatic cirrhosis Hepatic cirrhosis type: unspecified hepatic cirrhosis
[2019-05-07] MEDS: DOXYCYCLINE HYCLATE 100 MG in DEXTROSE 5% 100 ML IV SCH ×2 (10:29→21:08)
[2019-05-07] MEDS ORDERED: DOCUSATE SODIUM 100 MG CAP PO ONE (13:02)
--- NOTE | 2019-05-07 15:02 | Cardiology Consultation ---
Date of Consultation May 07, 2019 Assessment & Plan (1) Chest pain: Patient's symptoms actually involve back pain. She does have a history of some back discomfort associated with presumed angina in the past. However, this was generally associated with chest pain as well. This symptom was fleeting in nature and not exertional. She freely admits that this may have been musculoskeletal as she simply stood very still in the symptom resolved within 1 minutes. She is also very anxious about angina. She did recently undergo perfusion imaging which resulted in a low risk study. She is on an aggressive regimen for coronary disease and angina. She should continue her current dose of Imdur or and ranolazine. Beta-shree was reduced during her admission at [facility] over concerns of bradycardia in the setting severe renal dysfunction. I think her symptoms today were more musculoskeletal in nature. Would not pursue any additional evaluation or recommend any additional medical therapy in this regard. (2) CAD (coronary artery disease): Long history of coronary disease to include surgical and percutaneous revascularization. She appears to have had a good result with her recent revascularization in August of 2018. She has not had recurrent symptoms angina since that time. Her perfusion study [facility] was low risk with only a very small area apical reversibility identified. She can continue on her current medical regimen which includes dual anti-platelet therapy, high- dose rosuvastatin and Zetia. (3) Dyspnea: While there is some concern regarding congestive heart failure in the setting of elevated BNP, this may be elevated falsely due to her renal dysfunction. Her lung exam is more consistent with bronchial airway obstruction rather than pulmonary edema. Her chest x-ray was not consistent with pulmonary edema. She did not endorse symptoms of weight gain or have peripheral edema on examination today. However, for refractory symptoms attempts at diuresis could be considered. (4) Mitral regurgitation: Mild on recent echocardiogram. This can be followed over time. (5) Syncope: She had 2 episodes of syncope reported earlier this month. Whether she truly lost consciousness is unclear. However, at that time she had a severe electrolyte abnormality and presented with bradycardia. It is very possible that her electrolyte abnormalities resulted in a arrhythmia. Certainly hyperkalemic can result in fatal arrhythmias. Currently her EKG appears normal. No bradycardia or evidence of repolarization abnormalities. With a preserved LV systolic function she appears to be low risk for more malignant arrhythmias except in the setting of reversible causes such as ischemia or electrolyte problems. These were addressed at her recent hospitalization. Beta-shree was also reduced over some concerns regarding its interaction with her renal disease and resulting bradycardia. History of Present Illness Reason for Consultation: Back pain, history of coronary disease Requesting Physician: Namita Attending Physician: Yeison Mi History of Present Illness The patient is a 61-year-old woman with a long history of coronary disease most recently having undergone percutaneous intervention to the ostial right coronary in August of 2018. She was also recently admitted to [facility] for symptoms of presyncope. She was discovered at that time to have acute injury with severe hyperkalemia. Treatment of her kidney disease and resolution of her electrolyte abnormality appear to resolve her symptoms. However, at the end of her hospitalization the patient stated that she developed a cough and mild breathing difficulty which became progressive subsequent to discharge. She therefore presented to our facility for evaluation and was admitted for presumed asthma exacerbation. Patient states she continues to have an element of dyspnea. This is present at all times but worse with activity. It does not appear to change with changes in position, but she is short of breath even with movements in bed. She does not describe overt orthopnea but has been sleeping upright either in a recliner or in bed since her bypass surgery 20 years ago. He generally does not awaken with breathing difficulty. She does not have associated chest discomfort. In the past she has had symptoms of chest discomfort both with activity and at rest. This also tends to involve an element of discomfort between the scapula in the back. She has been treated with antianginals and most recently underwent the coronary evaluation noted in her record. This initially involved coronary angiography at our facility. However, an ostial RCA lesion could not be fixed and despite intensification of her anti anginal regimen she did require transfer to an outside facility where this was accomplished. Since that time she has a ctually done quite well. She has not had her typical symptoms of angina. This morning she reports having a brief episode of back pain. This lasted approximately 1 minute. It did not occur with activity and did not resolve without any particular intervention. It was not associated with any worsening of her breathing difficulty. No recurrence. 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 Her occupation requires her to ambulate frequently. She does not describe symptoms dyspnea or chest discomfort normally. She paces herself but has not had limiting symptoms of that nature since her intervention in August of 2018. Allergies Allergy/AdvReac Type Severity Reaction Status Date / Time levofloxacin Allergy Intermediate rash Verified 05/03/19 14:14 enalapril Allergy Unknown DRY COUGH Verified 05/03/19 14:14 insulin detemir Allergy Unknown HIVES Verified 05/03/19 14:14 phenol Allergy Unknown HIVES Verified 05/03/19 14:14 enalaprilat [From Vasotec] Allergy Unknown Verified 05/03/19 14:14 ketorolac AdvReac Intermediate nausea/vomi Verified 05/03/19 14:14 ting Home Medications Home Medications Medication Instructions Recorded Confirmed Type albuterol sulfate [Ventolin HFA] 2 puff INHALATION Q4 PRN 08/27/18 05/03/19 History budesonide-formoterol [Symbicort] 2 puff INHALATION BID 08/27/18 05/03/19 History calcium carbonate-vitamin D3 1 tab PO DAILY 08/27/18 05/03/19 History [Caltrate 600 + D] cyanocobalamin (vitamin B-12) 1,000 mcg PO DAILY 08/27/18 05/03/19 History [Vitamin B-12] fexofenadine [Chelsie Allergy] 180 mg PO DAILY PRN 08/27/18 05/03/19 History ipratropium bromide 1 spray INTRANASAL ACHS 08/27/18 05/03/19 History isosorbide mononitrate 180 mg PO DAILY 08/27/18 05/03/19 History nitroglycerin [Nitrostat] 0.4 mg SUBLINGUAL UD PRN 08/27/18 05/03/19 History ofloxacin 5 drp OPHTHALMIC (EYE) BID PRN 08/27/18 05/03/19 History olopatadine 1 drp OPHTHALMIC (EYE) BID PRN 08/27/18 05/03/19 History ranitidine HCl [Zantac] 300 mg PO QPM 08/27/18 05/03/19 History sucralfate [Carafate] 1 g PO ACHS 08/27/18 05/03/19 History tiotropium bromide [Spiriva with 1 cap INHALATION DAILY 08/27/18 05/03/19 History HandiHaler] aspirin 81 mg tablet,delayed 81 mg PO DAILY 09/04/18 05/03/19 History release clopidogrel 75 mg tablet 75 mg PO DAILY 09/04/18 05/03/19 History tramadol 50 mg tablet 50 mg PO Q6H PRN #60 tab 09/04/18 05/03/19 Rx metoprolol succinate 100 mg 100 mg PO DAILY #30 tab 09/14/18 05/03/19 Rx tablet,extended release 24 hr pantoprazole 40 mg tablet,delayed 40 mg PO DAILY tab 11/12/18 05/03/19 History release cholecalciferol (vitamin D3) 25 1,000 unit PO DAILY #90 tab 11/24/18 05/03/19 Rx mcg (1,000 unit) tablet Novolog U-100 Insulin aspart 100 See Rx Instructions SUBCUT DAILY 12/02/18 05/03/19 Rx unit/mL subcutaneous solution #70 ml NS rosuvastatin 40 mg tablet 40 mg PO DAILY #90 tab 12/10/18 05/03/19 Rx ezetimibe 10 mg tablet 10 mg PO DAILY #90 tab 01/11/19 05/03/19 Rx trazodone 50 mg tablet 50 mg PO HS #90 tab 01/11/19 05/03/19 Rx levothyroxine 88 mcg tablet See Rx Instructions .ROUTE 01/19/19 05/03/19 Rx .COMPLEX #90 tablet Omnipod Insulin Refill #180 ea NS 02/28/19 05/03/19 Rx levalbuterol HCl 1.25 mg/3 mL 1.25 mg INHALATION TID PRN #36 ml 03/02/19 05/03/19 Rx solution for nebulization sertraline 100 mg tablet 100 mg PO DAILY #30 tab 03/10/19 05/03/19 Rx blood sugar diagnostic ea 03/15/19 05/03/19 History ranolazine 1,000 mg 1,000 mg PO BID #180 tab 03/30/19 05/03/19 Rx tablet,extended release,12 hr calcitriol 0.5 mcg capsule 0.5 mcg PO UD #45 cap 04/08/19 05/03/19 Rx gabapentin 100 mg capsule 100 mg PO TID #270 cap 04/22/19 05/03/19 Rx prednisone 10 mg tablets in a dose See Rx Instructions .ROUTE 04/27/19 05/03/19 Rx pack .COMPLEX #30 ea sodium polystyrene sulfonate 15 60 ml PO UD #473 ml 04/27/19 05/03/19 Rx gram/60 mL oral suspension montelukast 10 mg tablet 10 mg PO DAILY #90 tab 04/29/19 05/03/19 Rx benzonatate 100 mg capsule See Rx Instructions PO TID PRN #30 05/03/19 05/03/19 Rx cap Patient History Medical History Antiplatelet or antithrombotic long-term use Asymptomatic carotid artery stenosis Bilateral carotid artery disease CAD (coronary artery disease) Cerebral arterial aneurysm Chest pain due to CAD Chronic reflux esophagitis Controlled type 2 diabetes mellitus with kidney complication, with long-term current use of insulin Diabetic peripheral neuropathy Dysesthesia ETD (eustachian tube dysfunction) Gastroparesis Hepatic cirrhosis (Acute) History of anemia History of ASCVD History of asthma History of depression Hypercholesterolemia Hypertension Hypothyroidism Intestinal metaplasia of gastric mucosa Irritable bowel syndrome KEREN (obstructive sleep apnea) Pulmonary emphysema Stage III chronic kidney disease Surgical History H/O: hysterectomy History of cardiac catheterization History of knee replacement Hx of CABG (Acute) Hx of cataract surgery S/P nasal surgery Status post breast reduction Family History Mother Carotid artery stenosis Breast cancer Heart failure Myocardial infarction Brother Carotid artery stenosis Peripheral vascular disease Stroke syndrome Hx of CABG Sinusitis Asthma Myocardial infarction Environmental allergies Sister Brain cancer Grandmother Myocardial infarction Denies family history of Ovarian cancer Prostate cancer Crohn's disease Bleeding disorder Colorectal cancer Ulcerative colitis Social History Preferred Language: Russian Communication Ability: Effective Visual Impairment: No Limitations Hearing Ability: Normal Radio Intelligence Operator Required: No Beliefs That Will Affect Care: None marital status: Current Living Situation: Spouse current occupational status: employed and 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 According to some records she did not lose consciousness. According to the patient she may have lost consciousness. She continues to have a flutter that occurs randomly and unpredictably. This lasts approximately 1 second and resolved. It is longstanding in nature and unchanged recently. She weighs herself at home frequently and has not noticed any specific weight gain. She has not noticed any peripheral edema. Physical Exam Physical Exam: She is alert and oriented x3. Mood affect appear normal. She answered all questions appropriately. HEENT: Sclerae are anicteric. Pupils are equal and reactive to light and accommodation. Extraocular movements were intact. Neuro: Cranial nerves intact Neck: Examination of the submandibular region did not reveal any significant lymphadenopathy. Carotids are palpable bilaterally and free of bruits on auscultation. There was no evidence of jugular venous distention. The thyroid was not enlarged. Lungs: Coarse bronchial breath sounds. No rales. No expiratory wheezing. Reduced excursion overall. Cardiac: The rhythm was regular. S1 and S2 were normal. There are no murmurs on examination. The PMI was not markedly displaced on palpation. Abdomen: The abdomen was soft and nontender. Extremities: Patient has bilateral radial pulses that are equal in intensity. There is no evidence cyanosis or clubbing. There was no evidence of significant peripheral edema bilaterally. Skin: There are no rashes noted on examination today. Results & Data ([facility]) Vital Signs (Past 12 Hours) Vital Signs Temp Pulse Pulse Resp BP Pulse Ox 05/07/19 13:08 81 20 96 05/07/19 07:28 75 20 93 05/07/19 07:14 36.4 C L 75 20 159/74 H 96 05/07/19 03:52 70 21 93 Laboratory Results Abnormal Lab Results 05/06/19 05/06/19 05/07/19 17:07 20:51 04:54 WBC 5.54 RBC 3.26 L Hgb 9.6 L Hct 30.9 L MCV 94.8 MCH 29.4 MCHC 31.1 L RDW Std Deviation 50.7 H RDW Coeff of Gomez 14.8 H Plt Count 145 MPV 9.3 Immature Gran % (Auto) 1.4 Neut % (Auto) 63.1 Lymph % (Auto) 25.8 Orange % (Auto) 9.7 Eos % (Auto) 0.0 Baso % (Auto) 0.0 Immature Gran # (Auto) 0.08 H Neut # (Auto) 3.49 Lymph # (Auto) 1.43 Orange # (Auto) 0.54 Eos # (Auto) 0.00 Baso # (Auto) 0.00 PT INR Sodium Potassium Chloride Carbon Dioxide Anion Gap BUN Creatinine Est Cr Clr Drug Dosing Est GFR ( Amer) Est GFR (Non-Af Amer) BUN/Creatinine Ratio Glucose POC Glucose 88 97 Calcium Total Bilirubin AST ALT Alkaline Phosphatase Troponin I Total Protein Albumin Globulin Albumin/Globulin Ratio 05/07/19 05/07/19 05/07/19 04:54 04:54 04:54 WBC RBC Hgb Hct MCV MCH MCHC RDW Std Deviation RDW Coeff of Gomez Plt Count MPV Immature Gran % (Auto) Neut % (Auto) Lymph % (Auto) Orange % (Auto) Eos % (Auto) Baso % (Auto) Immature Gran # (Auto) Neut # (Auto) Lymph # (Auto) Orange # (Auto) Eos # (Auto) Baso # (Auto) PT 11.9 INR 1.1 Sodium 141 Potassium 3.9 Chloride 113 H Carbon Dioxide 24 Anion Gap 4.0 BUN 54 H Creatinine 2.03 H Est Cr Clr Drug Dosing 29.1 Est GFR ( Amer) 28.5 Est GFR (Non-Af Amer) 24.6 BUN/Creatinine Ratio 26.8 H Glucose 61 L POC Glucose Calcium 8.8 Total Bilirubin 1.1 H AST 46 H ALT 115 H Alkaline Phosphatase 104 Troponin I 0.026 Total Protein 6.7 Albumin 3.1 L Globulin 3.6 Albumin/Globulin Ratio 0.9 05/07/19 05/07/19 05/07/19 08:06 08:24 11:52 WBC RBC Hgb Hct MCV MCH MCHC RDW Std Deviation RDW Coeff of Gomez Plt Count MPV Immature Gran % (Auto) Neut % (Auto) Lymph % (Auto) Orange % (Auto) Eos % (Auto) Baso % (Auto) Immature Gran # (Auto) Neut # (Auto) Lymph # (Auto) Orange # (Auto) Eos # (Auto) Baso # (Auto) PT INR Sodium Potassium Chloride Carbon Dioxide Anion Gap BUN Creatinine Est Cr Clr Drug Dosing Est GFR ( Amer) Est GFR (Non-Af Amer) BUN/Creatinine Ratio Glucose POC Glucose 49 L* 75 Calcium Total Bilirubin AST ALT Alkaline Phosphatase Troponin I 0.018 Total Protein Albumin Globulin Albumin/Globulin Ratio 05/07/19 11:56 WBC RBC Hgb Hct MCV MCH MCHC RDW Std Deviation RDW Coeff of Gomez Plt Count MPV Immature Gran % (Auto) Neut % (Auto) Lymph % (Auto) Orange % (Auto) Eos % (Auto) Baso % (Auto) Immature Gran # (Auto) Neut # (Auto) Lymph # (Auto) Orange # (Auto) Eos # (Auto) Baso # (Auto) PT INR Sodium Potassium Chloride Carbon Dioxide Anion Gap BUN Creatinine Est Cr Clr Drug Dosing Est GFR ( Amer) Est GFR (Non-Af Amer) BUN/Creatinine Ratio Glucose POC Glucose 84 Calcium Total Bilirubin AST ALT Alkaline Phosphatase Troponin I Total Protein Albumin Globulin Albumin/Globulin Ratio Diagnostic Findings Cardiac perfusion study performed at [facility] 04/22/2019: Small mild perfusion defect involving the apical segment and true apex that is reversible. Gated images suggest an ejection fraction of 72%. Echocardiogram performed 04/21/2019: Ejection fraction 60%. Mild LVH. Moderate left atrial dilation. Mild right atrial dilation. Mild mitral regurgitation. Mild elevation in estimated pulmonary pressures. ECG Additional Comments: Serial EKGs were obtained during her current hospitalization. These represented normal sinus rhythm with nonspecific ST and T-wave changes. Unchanged from prior. PG Care Time/CCT Total # of Minutes Spent Total Time Spent with Patient: Total time spent is greater than 50% in coordination of care (as documented) at patient's floor/unit and/or counseling patient: Coding Level of Care Code 34651 Initial Inpt Care Lvl 3 Diagnoses Chest pain R07.9 CAD (coronary artery disease) I25.10 Dyspnea R06.00 Mitral regurgitation I34.0 Syncope R55
[2019-05-07] MEDS: GUAIFENESIN/CODEINE 100MG/10MG 5ML UDC PO PRN ×2 (15:28→21:19)
--- NOTE | 2019-05-07 15:54 | Electrocardiogram Report ---
Test Reason : Blood Pressure : / mmHG Vent. Rate : 067 BPM Atrial Rate : 067 BPM P-R Int : 132 ms QRS Dur : 078 ms QT Int : 318 ms P-R-T Axes : 034 042 187 degrees QTc Int : 336 ms Sinus rhythm with marked sinus arrhythmia Nonspecific ST abnormality Abnormal ECG When compared with ECG of 03-MAY-2019 13:20, Premature supraventricular complexes are no longer Present Inverted T waves have replaced nonspecific T wave abnormality in Inferior leads T wave inversion now evident in Lateral leads QT has shortened Confirmed by Jigar Thomas ([id number]) on 05/07/2019 3:54:12 PM Referred By: REFERRED SELF Confirmed By:Carlos Thoams
[2019-05-07] MEDS: TRAZODONE HCL 50 MG TAB PO SCH (20:58)
[2019-05-08] MEDS: LEVALBUTEROL HCL 0.63 MG/3 ML NEB NEB SCH ×4 (00:28→19:17)
[2019-05-08] MEDS: CARBOHYDRATES FOR HYPOGLYCEMIA PO PRN (05:00)
[2019-05-08 06:19] LABS: Hematocrit (blood only) 33.3 % (37-47); Hemoglobin 10.7 g/dL (12.0-16.0); Mean Corpuscular Hgb Conc 32.1 g/dL (32-36); Mean Corpuscular Volume 93.3 fL (80-100); Mean Platelet Volume 9.5 fL (7.4-10.4); Platelet Count 121 K/uL (130-400); RDW Coefficient of Variation 14.6 % (11.5-14.5); RDW Standard Deviation 49.8 fL (36.4-46.3); Red Blood Count 3.57 M/uL (4.2-5.4)
[2019-05-08] MEDS: LEVOTHYROXINE SODIUM 88 MCG TABLET PO SCH (06:29)
[2019-05-08 06:30] LABS: INR 1.1 (0.9-1.1); Prothrombin Time 11.7 Seconds (9.0-12.0)
[2019-05-08] MEDS ORDERED: PHARMACY GLYCEMIC MGMT CONSULT PRN (06:34)
[2019-05-08 06:47] LABS: Albumin Level 3.2 gm/dl (3.4-5.0); BUN Creatinine Ratio 26.4 (10-20); Calcium 8.6 mg/dl (8.5-10.1); Creatinine Clr Calc Pharmacy 31.4 ml/min; Est GFR (African American) 31.5; Est GFR (Non-African American) 27.1; Potassium 3.6 mmol/L (3.5-5.1)
[2019-05-08 06:49] LABS: Albumin Globulin Ratio 0.9 (0.9-2); Bilirubin,Total 1.1 mg/dl (0.2-1); Globulin 3.5 gm/dl (2.5-4.0); Total Protein 6.7 gm/dl (6.4-8.2)
[2019-05-08] MEDS: UMECLIDINIUM BROMIDE 62.5MCG/BLISTER 7 PUFFS/INHALER INH SCH (08:31)
[2019-05-08] MEDS: guaiFENesin 600 MG TABCR PO SCH ×2 (08:31→21:30)
[2019-05-08] MEDS: FLUTICASONE/VILANTEROL 200/25MCG 14 PUFFS/INHALER INH SCH (08:31)
[2019-05-08] MEDS: SERTRALINE HCL 100 MG TABLET PO SCH (08:32)
[2019-05-08] MEDS: FAMOTIDINE 20 MG TAB PO SCH (08:32)
[2019-05-08] MEDS: CHOLECALCIFEROL 1,000 UNITS 25 MCG TAB PO SCH (08:32)
[2019-05-08] MEDS: MONTELUKAST SODIUM 10 MG TABLET PO SCH (08:32)
[2019-05-08] MEDS: RANOLAZINE 500 MG ER TAB PO SCH ×2 (08:32→21:31)
[2019-05-08] MEDS: METOPROLOL SUCC 50MG EXT REL TAB PO SCH (08:33)
[2019-05-08] MEDS: ASPIRIN 81 MG ECTAB PO SCH (08:33)
[2019-05-08] MEDS: BENZONATATE 100 MG CAPSULE PO SCH ×3 (08:33→21:31)
[2019-05-08] MEDS: CALCIUM 600MG + VIT D 400 IU TAB PO SCH (08:34)
[2019-05-08] MEDS: GABAPENTIN 100 MG CAP PO SCH ×2 (08:34→21:30)
[2019-05-08] MEDS: ISOSORBIDE MONO EXTENDED REL 60 MG TABCR PO SCH (08:34)
[2019-05-08] MEDS: PANTOprazole 40 MG TAB PO SCH (08:34)
[2019-05-08] MEDS: CYANOCOBALAMIN 500 MCG TABLET (VITAMIN B-12) PO SCH (08:35)
[2019-05-08] MEDS: EZETIMIBE 10 MG TABLET PO SCH (08:35)
[2019-05-08] MEDS: predniSONE 20 MG TAB PO SCH (08:35)
[2019-05-08] MEDS: SUCRALFATE 1 GM TAB PO SCH ×4 (08:35→21:31)
[2019-05-08] MEDS: ROSUVASTATIN CALCIUM 20 MG TAB PO SCH (08:36)
[2019-05-08] MEDS: POLYETHYLENE (MIRALAX) 17 GM PACK PO SCH (08:36)
[2019-05-08] MEDS: CLOPIDOGREL BISULFATE 75 MG TAB PO SCH (08:37)
[2019-05-08] MEDS: NovoLOG INSULIN PUMP SCH ×4 (08:43→21:00)
[2019-05-08] MEDS: DOXYCYCLINE HYCLATE 100 MG in DEXTROSE 5% 100 ML IV SCH ×2 (08:53→21:37)
--- NOTE | 2019-05-08 13:33 | Pharmacy Report ---
Glycemic Control Consultation - Date of Service May 08, 2019 - Scope Scope: Glycemic Pharmacist consulted for glycemic control and to write orders per [facility] inpatient glycemic control protocol. - Objective Weight: 97.4 kg Accuchecks BSG (last 24hrs): 05/07/19 05/07/19 05/08/19 17:07 20:44 05:00 Glucose POC Glucose 74 111 H 56 L* 05/08/19 05/08/19 05/08/19 05:16 06:09 08:13 Glucose 78 POC Glucose 83 118 H 05/08/19 12:07 Glucose POC Glucose 139 H Laboratory Data (last 24hrs): 05/08/19 06:09 Potassium 3.6 Carbon Dioxide 23 Anion Gap 6.0 Creatinine 1.87 H Est Cr Clr Drug Dosing 31.4 HbA1c: Hemoglobin A1c 6.2 % (4.5-5.6) H 05/04/19 05:49 - Recent Pertinent Medications Outpatient Anti-diabetic Regimen: * Novolog OmniPod * basal rates are as follows: 00-08: 5.75 units/hr; 08-15: 6.25 units/hr; 15- 00: 5.25 units/hr * CF = 5 * CR = 4 * A1c = 6.2 % 05/04/2019 The patient is currently receiving: * On her OmniPod Risk Factors for Insulin Resistance: * Steroids: prednisone 40 mg PO daily * Infection: pulmonary infection on doxycycline IV * Diet: low K, T2DM - Assessment & Plan Assessment & Plan: ASSESSMENT: * Ms Kaur is a very nice woman with well controlled T2DM who presents with an asthma exacerbation. Patient has been on her insulin pump since admission. On 05/07/2019 patient had low BSG of 49 mg/dL. CDE met with patient and reduced basal rate overnight. On 05/08/19 patient had another low BSG of 56 mg/dL. Pharmacy consulted at this point. * Pump was placed on hold. * On phone interview with patient this morning she was hesitant to stop insulin pump but she stated she could alter all the basal rate. We agreed to a reduction to 3.25 units/hr. Lunch BSG much improved to 139 mg/mL. * Met with patient this afternoon. She stated she could adjust all basal rates to 3.25 units/hr. * Will try above plan in attempt to shift from a completely basal regimen to a more 50/50 split regimen. * Again, patient wanted to continue on insulin pump and was willing to work with pharmacy to reduce basal rates. PLAN FOR INPATIENT GLYCEMIC CONTROL: * Continue insulin pump with reduced basal rate of 3.25 units/hr CF 5 CR 4 * Please note that the plan above was derived based on current level of insulin resistance and hospital stress. These recommendations are appropriate for inpatient admission only. Plan of care upon discharge will need to be reassessed to avoid potential outpatient hypo/hyperglycemia. Thank you.
[2019-05-08] MEDS: TRAZODONE HCL 50 MG TAB PO SCH (21:31)
--- NOTE | 2019-05-08 22:28 | Hospitalist Progress Note ---
Date of Service May 08, 2019 Assessment & Plan (1) Asthma exacerbation: * Patient with moderate persistent asthma -- uses rescue inhaler 2x/daily at baseline, increased to 4x/daily recently in addition to home nebs, breo, incruse. * On admit- CXR negative for acute process, Flu negative. Trop negative x1. BNP 3144. No evidence of CHF/volume overload on exam * Repeat CXR ordered for increased wheezing on 05/04 which showed stable cardiomegaly and mild chronic interstitial thickening. Otherwise, no acute process. * Continue home Breo, Montelukast, Incruse * Continue mucinex 600mg BID, flutter valve, tessalon pearls, codeine cough syrup prn * Continue doxycycline (day 2 of therapy)-- had previously received doxy x 1 in ED on admission * Duonebs Q4 scheduled changed to Xopenex Q6 -- will continue as patient states she has noticed improvement * Prednisone 40mg PO --> decrease to 30mg starting 05/08 * ?Some component of underlying anxiety. Only on sertraline at home. May need increased. --> TSH checked, low at 0.196. FT4 wnl at 0.95 -- rec repeat TFT in 6 weeks * Held pulmonary consult: as patient does appear to be improving on 05/07: peak flow is mildly better at 220. will recheck on 05/08. * If patient continues to improve, will consider discharge. * case discussed with inpatient pulmonary team EARLIER IN THE WEEK (Friday). --> Recommended obtaining [facility]. If no significant improvement, they would be happy to see patient and perform formal consultation. (2) Stage III chronic kidney disease: * Cr 1.7 on admission. Baseline had been 1.7-1.[address] Calixto outpatient note, however recently has been 2-2.3 Patient recently admitted to [facility] with Cr of 3 and K >7. At that time, ANGELI, spironolactone, and HCTZ discontinued. Recommended Ranexa 500mg BID (although Dr Bennett outpatient note had increased to 1,000mg BID, which is currently ordered) and her metoprolol was decreased from 100 to 50mg daily. They also recommended that patient be on lokemla 10g packet per day for hyperkalemia, although patient has not received. K currently 3.9 *We do not have lokelma on formulary. If needed, could utilize parotimer. --Discussed medication options with inpatient nephrology team who suggested that we place patient on low potassium diet and consult international guest coordinator to provide patient with low potassium diet and that lokemla may not be necessary at this time. -- Diet changed to Low Potassium. Hooker Inspector consult placed. --Discussion again on 05/06 -- rec resuming spironolactone over losartan and continue to monitor potassium. K 3.9 on labs * Originally scheduled for fistula creation with Dr. Marcos for potential future use, however this was postponed due to recent COVID-19 issues * Follows with Dr. Calixto if needed (case discussed with Dr. Whitehead). No current HD. Continue home calcitriol 0.5mcg 3x/weekly * Cr currently 1.87 on 05/07. Appears at baseline. * IVF - 1/2 NSS @ 50cc/hr for total of 500cc to avoid volume overload on 05/05. No further IVF. Appears euvolemic on exam. (3) Hypokalemia: * RESOLVED * Recent admission to [facility] for hyperK related to renal disease --> 3.4 on admission -- did not replete due to recent hyperK * Of note, patient with recommendations to start Lokemla as above, although never started on admission. She had been taking 10g daily after discharge from [place] earlier this month. See above. None for now * K 3.9 * Monitor AM labs (4) Hepatic cirrhosis: * States related to fatty liver, non-alcoholic. Denies abdominal pain. Of note, patient does have elevation of bilirubin noted on past lab draws * Patient supposed to have had MRI as outpatient but was never scheduled and followed up with [facility] without imaging. --> Supposed to have done soon, but we should make sure she is set up prior to discharge if not done inpatient. Patient denies abdominal pain at this time. * LFTs with mild elevation on admission trending down -- Tbili 1.1, AST 46, ALT 115, Alk phos 104 * INR back to normal at 1.1 * Continue to monitor (5) CAD (coronary artery disease): * Hx of CABG 16 yrs ago -- per patient, she states her asthma worsened since this time. PCI August 2018 s/p stent to RCA. Follows locally with Dr. Bennett. * Medication changes earlier this month as above--> MTP decreased to 50mg and Ranexa 500mg BID. HCTZ, ANGELI, Spironolactone discontinued * Stress ECHO at that time with small sized, mild intensity perfusion defect involving apical segments and true apex that is reversible and most likely represents small area of myocardial ischemia. Per d/c summary -- no need for repeat cardiac catheterization and recommended follow-up outpatient with Dr. Bennett. Patient has not yet been to see him since discharge on 04/22 * Trop negative on admission. EKG SR with premature supraventricular complexes, nonspecific ST-T wave abnormality. No significant change compared to August 2018. * Per outpatient note from Dr. Bennett, patient to be on Ranexa 1,000mg PO BID * Continue home ASA, Plavix, Rosuvastatin, Metoprolol 50mg (6) Anemia: * Baseline Hb ~10, 10.1 on admission * H/h stable at 9.6/30.9 -- did receive IVF 05/05 * No overt s/sx bleeding * Continue to monitor (7) Controlled type 2 diabetes mellitus with kidney complication, with long-term current use of insulin: * Uses an automatic pump that checks BS Q5min and administers insulin PRN without other direction from pt. Pod changed yesterday. Family to bring additional supplies if needed. * A1c improved to 6.2. Follows locally with [facility] Gregory * Continue to monitor -- sugars acceptable. Low of 47 today, although patient states this does occasionally happen * If happens again, may want to have patient switched over to ISS while inpatient so that we can more closely monitor (8) Depression: * Continue home sertraline (9) Diabetic peripheral neuropathy: * States gabapentin was decreased from TID to BID during recent [facility] admission * Continue at BID dosing (10) Gastroparesis: * continue home meds * Pt takes zantac, which is on recall --> on famotidine 20mg BID while inpatient (11) Hypercholesterolemia: * continue home crestor, zetia (12) Hypertension: * Chronic. BP elevated 159/74 * Continue home metoprolol * Discussed with nephro--- rec restarting prior spironolactone 50mg PO daily * Continue to monitor (13) Hypothyroidism: * Chronic. Stable. * Checked TSH -- low at 0.196. However, FT4 wnl, at 0.95. --> Rec outpatient TFT in 6 weeks * Continue home levothyroxine 88mcg (14) Insulin pump in place: * As noted above (15) Irritable bowel syndrome: * Continue home meds (16) Obstructive sleep apnea: * Uses CPAP at home -- ordered (17) Secondary hyperparathyroidism of renal origin: * Noted (18) Vitamin D deficiency: * Continue home meds (19) Constipation: * Hx IBS. Patient states she chronically has issues moving her bowels when in the hospital. No BM since admission. * Will add miralax/colace -- additional dose of colace ordered. Patient would not like to use miralax. No abd pain at this time. * Continue to monitor (20) Chest pain: * Reported episode overnight, no further CP reported. * Trop added to AM labs -- elevated at 0.026 * Repeat 0.018 -- likely secondary to elevated BP. As discussed with nephrology, spironolactone initiated at 50mg PO daily. * EKG performed which showed some ST-T wave abnormalities, T wave inversion lateral leads * Cardiology consulted -- appreciate input (21) DVT prophylaxis: * SCDs * Ambulation encouraged * Added SQ Lovenox -- will need to monitor platelets, currently 108 Dispo: likely to remain inpatient for 1-2 more days. Admission and Anticipated Discharge Date Admission Date: May 03, 2019 Subjective Patient reports no significant improvement from yesterday to today. She still reports coughing. She also reports having intermittent shortness of breath. Se is able to carry a conversation though. She reports having a cough but with mild sputum production. Review of Systems Review of Systems: All systems reviewed & are unremarkable except as noted in HPI & below Physical Exam Physical Exam: Constitutional: WD/WN, vitals as above, obese ,no acute distress Eyes: + anicteric sclerae and PERRL ENMT: external ear and nose normal, oropharynx normal. Neck: trachea midline, no thyromegaly Respiratory: normal respiratory effort; no labored breathing, does not use accessory muscles and +able to speak in complete sentence Auscultation: + diminished lung sounds but no wheezing today Cardiovascular: RRR, no murmur/r/g, no edema Gastrointestinal: (Abdomen): normal bowel sounds, soft, nontender, no hepatosplenomegaly, ecchymosis from previous injection site Musculoskeletal: no cyanosis or clubbing, extremities motor strength 5/5 Skin: no rashes, warm and dry, sternotomy scaring. scarring to LE from harvesting for previous CABG Psychiatric: A+Ox3 Lymphatic: no cervical or axillary lymphadenopathy Results & Data Results & [facility] ([facility]) Vital Signs (Past 12 Hours) Vital Signs Temp Pulse Resp BP Pulse Ox 05/08/19 19:17 69 16 96 05/08/19 15:41 36.9 C 64 16 164/76 H 96 05/08/19 13:22 77 20 97 PG Care Time/CCT Total # of Minutes Spent Total Time Spent with Patient: Total time spent is greater than 50% in coordina tion of care (as documented) at patient's floor/unit and/or counseling patient: Coding Level of Care Code 91207 Subseq Hosp Care Lvl 3 Diagnoses Asthma exacerbation J45.901 Stage III chronic kidney disease N18.3 Hypokalemia E87.6 Hepatic cirrhosis K74.60 Hepatic cirrhosis type: unspecified hepatic cirrhosis CAD (coronary artery disease) I25.10 Anemia D64.9 Controlled type 2 diabetes mellitus with kidney complication, with long-term current use of insulin E11.29; Z79.4 Depression F32.9 Diabetic peripheral neuropathy E11.42 Gastroparesis K31.84 Hypercholesterolemia E78.00 Hypertension I10 Hypothyroidism E03.[address] Z96.41 Irritable bowel syndrome K58.9 Obstructive sleep apnea G47.33 Secondary hyperparathyroidism of renal origin N25.81 Vitamin D deficiency E55.9 Constipation K59.00 Chest pain R07.9 DVT prophylaxis Z29.9 Time Spent (min) 35 (1) Hepatic cirrhosis Hepatic cirrhosis type: unspecified hepatic cirrhosis
[2019-05-09] MEDS: LEVALBUTEROL HCL 0.63 MG/3 ML NEB NEB SCH ×3 (00:56→13:27)
[2019-05-09] MEDS: LEVOTHYROXINE SODIUM 88 MCG TABLET PO SCH (05:40)
[2019-05-09] MEDS: CARBOHYDRATES FOR HYPOGLYCEMIA PO PRN (06:37)
[2019-05-09 06:46] LABS: Creatinine Clr Calc Pharmacy 35.1 ml/min; Est GFR (African American) 36.6; Est GFR (Non-African American) 31.6
--- NOTE | 2019-05-09 08:10 | Pharmacy Report ---
Glycemic Control Progress Note - Date of Service May 09, 2019 - Scope Glycemic Pharmacist consulted for glycemic control to write orders per [facility] inpatient glycemic control protocol. - Objective Accuchecks BSG(last 24 hours):: 05/08/19 05/08/19 05/08/19 08:13 12:07 17:06 POC Glucose 118 H 139 H 99 05/08/19 05/09/19 20:57 06:43 POC Glucose 97 73 HbA1c:: Hemoglobin A1c 6.2 % (4.5-5.6) H 05/04/19 05:49 - Recent Pertinent Medications The patient is currently receiving: * Own insulin pump - currently rate was 3.25 units/hr - Outpatient Anti-Diabetic Meds Novolog OmniPod - see previous notes for rates - Assessment & Plan ASSESSMENT: * See progress note from 05/08/2019 for more background info, in short: * Pt receiving SQ basal bolus insulin regimen for hyperglycemia secondary to baseline DM (outpatient regimen on hold) and steroids (on prednisone 40 mg currently changing to 30 mg at some point). * Patient is currently receiving insulin via OmniPod with reduced basal rate of 3.25 units/hr. * Changes needed to insulin regimen: * AM Fasting BSG = 73 mg/dl. This is below goal range for patient based on inpatient targets and co-morbidities. Therefore Basal insulin will be reduced to 2.5 units/hr (a 25% reduction). * Post-prandial BSGs are in range therefore no changes needed to CF/CR. * Total daily dose = ? units. Unable to calculate at this point since don't know patient's bolus dosing. PLAN FOR INPATIENT GLYCEMIC CONTROL: * Decreasing basal rate to 2.5 units/hr * Continuing correction factor * Continuing carb ratio * Continuing goal range RECOMMENDATIONS FOR DISCHARGE: * Patient to continue to follow[place] with [facility] Thank you.
[2019-05-09] MEDS: NovoLOG INSULIN PUMP SCH ×2 (08:18→12:40)
[2019-05-09] MEDS: RANOLAZINE 500 MG ER TAB PO SCH (08:44)
[2019-05-09] MEDS: FLUTICASONE/VILANTEROL 200/25MCG 14 PUFFS/INHALER INH SCH (08:44)
[2019-05-09] MEDS: UMECLIDINIUM BROMIDE 62.5MCG/BLISTER 7 PUFFS/INHALER INH SCH (08:44)
[2019-05-09] MEDS: POLYETHYLENE (MIRALAX) 17 GM PACK PO SCH ×2 (08:44→08:51)
[2019-05-09] MEDS: GABAPENTIN 100 MG CAP PO SCH (08:44)
[2019-05-09] MEDS: MONTELUKAST SODIUM 10 MG TABLET PO SCH (08:44)
[2019-05-09] MEDS: METOPROLOL SUCC 50MG EXT REL TAB PO SCH (08:45)
[2019-05-09] MEDS: EZETIMIBE 10 MG TABLET PO SCH (08:45)
[2019-05-09] MEDS: SERTRALINE HCL 100 MG TABLET PO SCH (08:45)
[2019-05-09] MEDS: ASPIRIN 81 MG ECTAB PO SCH (08:45)
[2019-05-09] MEDS: CLOPIDOGREL BISULFATE 75 MG TAB PO SCH (08:45)
[2019-05-09] MEDS: predniSONE 20 MG TAB PO SCH (08:45)
[2019-05-09] MEDS: FAMOTIDINE 20 MG TAB PO SCH (08:45)
[2019-05-09] MEDS: ISOSORBIDE MONO EXTENDED REL 60 MG TABCR PO SCH (08:45)
[2019-05-09] MEDS: CALCIUM 600MG + VIT D 400 IU TAB PO SCH (08:45)
[2019-05-09] MEDS: ROSUVASTATIN CALCIUM 20 MG TAB PO SCH (08:45)
[2019-05-09] MEDS: CHOLECALCIFEROL 1,000 UNITS 25 MCG TAB PO SCH (08:46)
[2019-05-09] MEDS: PANTOprazole 40 MG TAB PO SCH (08:46)
[2019-05-09] MEDS: SUCRALFATE 1 GM TAB PO SCH ×2 (08:46→12:40)
[2019-05-09] MEDS: BENZONATATE 100 MG CAPSULE PO SCH ×2 (08:46→14:10)
[2019-05-09] MEDS: guaiFENesin 600 MG TABCR PO SCH (08:46)
[2019-05-09] MEDS: CYANOCOBALAMIN 500 MCG TABLET (VITAMIN B-12) PO SCH (08:46)
[2019-05-09] MEDS: DOXYCYCLINE HYCLATE 100 MG in DEXTROSE 5% 100 ML IV SCH (09:12)
--- NOTE | 2019-05-09 09:20 | Hospitalist Progress Note ---
Date of Service May 09, 2019 Assessment & Plan (1) Asthma exacerbation: - moderate persistent asthma -- uses rescue inhaler 2x/daily at baseline, required increased to 4x/daily recently in addition to home nebs, breo, incruse on admission - On admit- CXR negative for acute process, Flu negative. Trop negative x1. BNP 3144. No evidence of CHF/volume overload on exam - Repeat CXR 05/04 no acute process. -Continue home Breo, Montelukast, Incruse - Continue mucinex 600mg BID, flutter valve, tessalon pearls, codeine cough syrup prn, xopenex nebs - Continue doxycycline - Cont prednisone taper, 30 mg today * ?Some component of underlying anxiety. Only on sertraline at home. May need increased. --> TSH checked, low at 0.196. FT4 wnl at 0.95 -- rec repeat TFT in 6 weeks - peak flow is mildly better at 220. will recheck on 05/08 - if no improvement today then Pulm consultation as this was discussed earlier in the week. (2) Stage III chronic kidney disease: - Cr Baseline had been 1.7-1.[address] Calixto outpatient note, however recently has been 2-2.3 - Nephro discussed low K+ diet for now ( follows with Dr. Calixto as outpt) - Cont Sprionolactone - Originally scheduled for fistula creation with Dr. Marcos for potential future use, however this was postponed due to recent COVID-19 issues. No current needs for emergent HD. - Continue home calcitriol 0.5mcg 3x/weekly (3) Hypokalemia: RESOLVED - previously recommended to start Lokemla from [facility] after recent admission, although never started on admission as doing low K+ diet. She had been taking 10g daily after discharge, not during this hospital stay. (4) Hepatic cirrhosis: - Secondary to fatty liver, non-alcoholic * Will need MRI as outpatient with [facility] upon discharge * LFTs with mild elevation on admission:trending down -- Tbili 1.1, AST 46, ALT 115, Alk phos 104 * INR remains 1.1 - 1.2 for several days (5) CAD (coronary artery disease): - Hx of CABG 16 yrs ago - - Cardiology consulted - follows with Dr. Bennett as outpt. - s/p PCI August 2018 s/p stent to RCA. - Continue DAPT, metoprolol 50 mg daily, ranexa 1000 mg BID, ezetia 10 mg daily, - Trop negative on admission. - EKG without significant changes (6) Anemia: Baseline Hb ~10, 10.1 on admission (7) Controlled type 2 diabetes mellitus with kidney complication, with long-term current use of insulin: - Continue insulin pump, Family to bring additional supplies if needed. - A1c= 6.2. Follows locally with [facility] Gregory - Giovana cantrell (8) Depression: - Continue sertraline (9) Diabetic peripheral neuropathy: -States gabapentin 100 mg BID during (10) Gastroparesis: - continue famotidine 20mg BID while inpatient (11) Hypercholesterolemia: - continue crestor zetia (12) Hypertension: - Chronic. BP consistently elevated over 160/70 for several days. - Continue metoprolol 50 mg daily - Plan to restart spironolactone at low dose today pending PRP, Cr. improved to 1.65 and back to baseline since admission. (13) Hypothyroidism: - Checked TSH -- low at 0.196. However, FT4 wnl, at 0.95. --> Rec outpatient TFT in 6 weeks -Continue levothyroxine 88mcg (14) Insulin pump in place: * As noted above (15) Irritable bowel syndrome: -Continue home meds (16) Obstructive sleep apnea: - Uses CPAP HS, continue (17) Secondary hyperparathyroidism of renal origin: - Noted (18) Vitamin D deficiency: -Continue supplementation (19) Constipation: - Hx IBS. Patient states she chronically has issues moving her bowels when in the hospital. No BM since admission - Continue miralax/colace (20) Chest pain: - resolved overnight on 05/06 - Cardiology consulted - Trop trended from 0.026 to 0.018 -- likely secondary to elevated BP. (21) DVT prophylaxis: - SCD, ambulatory, lovenox subq thrombocytopenia Dispo: Admission and Anticipated Discharge Date Admission Date: May 03, 2019 Results & Data Results & Data ([facility]) Vital Signs (Past 12 Hours) Vital Signs Temp Pulse Pulse Pulse Resp BP Pulse Ox 05/09/19 07:18 36.6 C 68 16 161/73 H 96 05/09/19 07:02 70 18 98 05/09/19 03:22 56 L 16 94 05/09/19 00:59 69 16 94 05/09/19 00:57 69 16 94 05/08/19 23:11 36.5 C 67 16 162/76 H 97 PG Care Time/CCT Total # of Minutes Spent Total Time Spent with Patient: Total time spent is greater than 50% in coordin ation of care (as documented) at patient's floor/unit and/or counseling patient: Coding Diagnoses Asthma exacerbation J45.901 Stage III chronic kidney disease N18.3 Hypokalemia E87.6 Hepatic cirrhosis K74.60 Hepatic cirrhosis type: unspecified hepatic cirrhosis CAD (coronary artery disease) I25.10 Anemia D64.9 Controlled type 2 diabetes mellitus with kidney complication, with long-term current use of insulin E11.29; Z79.4 Depression F32.9 Diabetic peripheral neuropathy E11.42 Gastroparesis K31.84 Hypercholesterolemia E78.00 Hypertension I10 Hypothyroidism E03.[address] Z96.41 Irritable bowel syndrome K58.9 Obstructive sleep apnea G47.33 Secondary hyperparathyroidism of renal origin N25.81 Vitamin D deficiency E55.9 Constipation K59.00 Chest pain R07.9 DVT prophylaxis Z29.9 (1) Hepatic cirrhosis Hepatic cirrhosis type: unspecified hepatic cirrhosis
[2019-05-09 10:11] LABS: BUN Creatinine Ratio 26.3 (10-20); Calcium 8.8 mg/dl (8.5-10.1); Creatinine Clr Calc Pharmacy 35.3 ml/min; Est GFR (African American) 36.9; Est GFR (Non-African American) 31.8; Potassium 3.9 mmol/L (3.5-5.1)
[2019-05-09 10:18] LABS: Hematocrit (blood only) 32.5 % (37-47); Hemoglobin 10.4 g/dL (12.0-16.0); Mean Corpuscular Hemoglobin 29.3 pg (25-34); Mean Corpuscular Volume 91.5 fL (80-100); Platelet Count 127 K/uL (130-400); RDW Coefficient of Variation 14.6 % (11.5-14.5); Red Blood Count 3.55 M/uL (4.2-5.4); White Blood Count 4.19 K/uL (4.8-10.8)
[2019-05-09] MEDS ORDERED: SPIRONOLACTONE 25 MG TAB PO ONE ×2 (13:09→14:00)
--- NOTE | 2019-05-09 15:51 | Discharge Summary ---
Date of Service May 09, 2019 Admission HPI Per Admitting Provider 69 y/o F c/o SOB. Pt was admitted to [facility] until 04/22 where she had been evaluated for sx concerning for possible stroke. She had lost control of her LE and had syncope x2 prior to that admission. She was dx with hyperkalemia thought related to her kidney disease. Pt states she had a negative cardiac workup during this admission. She states that those sx have since resolved. She states she noted a very mild cough on the day she was being d/c'd, but it was not causing SOB or other issues at that time. Over that weekend, she started to have mild HOOKS with stairs. She called her PCP on 04/25 and was given an order for steroids, which she started. Her breathing became worse. At first her inhalers were helping, but then they stopped helping and her SOB progressed to flat surfaces and occasionally at rest. She was seen by PCP in the office today and advised to come to the ED for evaluation. Pt denies fever, abd pain, n/v/c/d, LE pain or swelling. She states that when she has prolonged cough e pisodes she does have some chest pain the last few days, but this resolves with the resolution of the coughing and does not happen outside of coughing or with the SOB. Pt was given an hour long neb and steroids, doxycycline in the ED and does feel improved, but still not at her usual breathing. Pt has hx of outpt tx for PNA in February. Admission Exam Per Admitting Provider Physical Exam Constitutional: WD/WN, vitals as above Eyes: normal visual kuo by confrontation and + anicteric sclerae Neck: normal visual inspection and trachea midline Respiratory: normal respiratory effort; no respiratory distress Auscultation: + diminished lung sounds and + wheezes; no crackles Cardiovascular: Rate/Rhythm: regular rate and regular rhythm Gastrointestinal (Abdomen): Inspection/Auscultation: abdomen not distended Percussion/Palpation: abdomen soft; abdomen nontender Musculoskeletal: Head/Neck/Chest: normocephalic and head atraumatic negative for edema, peripheral pulses intact Skin: no rashes, warm and dry Neurologic: awake; not confused Speech / Cognition: normal speech Psychiatric: A+Ox3, euthymic affect Principal Diagnosis Asthma exacerbation CKD stage III Hypokalemia Discharge Exam General: awake, alert, no apparent distress, + morbidly obese, BMI of 38.3 Head: Normocephalic, atraumatic ENT: PERRL, EOMI, no pharyngeal exudate, mucous membranes moist Chest: Clear to auscultation, on room air, no adventitious breath sounds Cardiac: Regular rate and rhythm, no murmur, no JVD, normal peripheral pulses, good capillary refill Abdominal: NABS x 4 quadrants, soft, nontender to palpation, no rebound, guarding or tenderness Extremities: Normal inspection, no peripheral edema or erythema, calfs nontender to palpation Psych: Normal mood and affect Neuro: AAO x 3, strength intact bilaterally and rated 5/5, no motor deficits, speech is clear, no peripheral sensory deficits Discharge Data Allergies Allergy/AdvReac Type Severity Reaction Status Date / Time levofloxacin Allergy Intermediate rash Verified 05/03/19 14:14 enalapril Allergy Unknown DRY COUGH Verified 05/03/19 14:14 insulin detemir Allergy Unknown HIVES Verified 05/03/19 14:14 phenol Allergy Unknown HIVES Verified 05/03/19 14:14 enalaprilat [From Vasotec] Allergy Unknown Verified 05/03/19 14:14 ketorolac AdvReac Intermediate nausea/vomi Verified 05/03/19 14:14 ting Consultations 05/03/19 15:53 ED Decision to Admit Stat 05/03/19 19:23 Consult Health Information Management Stat 05/07/19 11:33 Consult Cardiology Routine Hospital Course (1) Asthma exacerbation: - moderate persistent asthma -- uses rescue inhaler 2x/daily at baseline, required increased to 4x/daily recently in addition to home nebs, breo, incruse on admission - On admit- CXR negative for acute process, Flu negative. Trop negative x1. BNP 3144. No evidence of CHF/volume overload on exam - Repeat CXR 05/04 no acute process. - Continue home Breo, Montelukast, Incruse - Continue mucinex 600mg BID, flutter valve, tessalon pearls, codeine cough syrup prn, xopenex nebs - Continue doxycycline to complete a 7 day course. - Cont prednisone taper, 30 mg today then x 2 more days, 20 mg x 3 days, 10 mg x 3 days. - TSH checked, low at 0.196. FT4 wnl at 0.95 -- rec repeat TFT in 6 weeks - peak flow is mildly better at 220. will recheck completed 05/08 was improved. (2) Stage III chronic kidney disease: - Cr 1.64 -Baseline had been 1.7-1.9 - Nephro discussed low K+ diet for now - follows with Dr. Calixto as outpt- also discussed with her on the phone prior to pt discharge. Plan for BMP in 10-14 days and then again in 5 weeks, with follow up the first week of June. Script written and given to the patient - Cont Sprionolactone 50 mg daily restarted on 05/[address] Calixto - Originally scheduled for fistula creation with Dr. Marcos for potential future use, however this was postponed due to recent COVID-19 issues. No current needs for emergent HD. - Continue home calcitriol 0.5mcg 3x/weekly (3) Hypokalemia: RESOLVED - previously recommended to start Lokemla from [facility] after recent admission, although never started on admission because of high cost, was on kayexylate as outpatient, and then placed on low K+ diet here in the hospital. K+ now improved. Will resume spironolactone as above with consistently elevated BPs in 160s/70s in the past 3 days. (4) Hepatic cirrhosis: - Secondary to fatty liver, non-alcoholic - Will need MRI as outpatient with [facility] upon discharge- PCP to arrange follow up - LFTs with mild elevation on admission:trending down -- Tbili 1.1, AST 46, ALT 115, Alk phos 104 - INR remains 1.1 - 1.2 for several days (5) CAD (coronary artery disease): - Hx of CABG 16 yrs ago - Cardiology consulted - follows with Dr. Bennett as outpt. - s/p PCI August 2018 s/p stent to RCA. - Continue DAPT, metoprolol 50 mg daily, ranexa 1000 mg BID, ezetia 10 mg daily - Trop negative on admission. - EKG without significant changes (6) Anemia: Baseline Hb ~10, stable (7) Controlled type 2 diabetes mellitus with kidney complication, with long-term current use of insulin: - Continue insulin pump, Family to bring additional supplies if needed. - A1c= 6.2. Follows locally with [facility], [employer] [employer] - Giovana cantrell (8) Depression: - Continue sertraline (9) Diabetic peripheral neuropathy: -States gabapentin 100 mg BID during (10) Gastroparesis: - continue famotidine 20mg BID while inpatient (11) Hypercholesterolemia: - continue crestor, zetia (12) Hypertension: - Chronic. BP consistently elevated over 160/70 for several days. - Continue metoprolol 50 mg daily - Resume spironolactone 50 mg daily, Cr. improved to 1.65 and back to baseline since admission. (13) Hypothyroidism: - Checked TSH -- low at 0.196. However, FT4 wnl, at 0.95. --> Rec outpatient TFT in 6 weeks -Continue levothyroxine 88mcg (14) Insulin pump in place: -As noted above (15) Irritable bowel syndrome: -Continue home meds (16) Obstructive sleep apnea: - Uses CPAP HS, continue (17) Secondary hyperparathyroidism of renal origin: - Noted (18) Vitamin D deficiency: -Continue supplementation (19) Constipation: - Resolved - Hx IBS. Pt had large BM last evening with bowel regimen. - Continue miralax/colace (20) Chest pain: - resolved overnight on 05/06 - Cardiology consulted - no further recommendations - Trop trended from 0.026 to 0.018 -- likely secondary to elevated BP. (21) DVT prophylaxis: - SCD, ambulatory, lovenox subq Dispo: Discharge to home today Total Time Total Time Spent Total Time Spent (In Minutes): 45 Discharge Plan Discharge Items Patient Disposition: Home - Self-Care Reason For Visit: ASTHMA EXACERBATION Discharge Diagnosis: Asthma exacerbation Condition on Discharge: Good Activity: Resume your previous activity Lifting: Gradually increase as tolerated Bathing: No limitations Driving/Machine Use: Resume 1 day after discharge Non-emergency contact: Primary Care Provider and Tick Sewer Call non-emergency contact if: you have any medication questions and your rectal temperature is above 100.4 Follow-up/Referrals: Lakeisha Calixto MD [Physician] - 06/14/19 Mindi Antoine MD [Primary Care Provider] - Diet: Carb Consistent or DM2, Heart Healthy and Low Potassium (2gm) Addtl Attending Provider Instructions: You were admitted to [facility] due to asthma exacerbation and diagnosed with the same During your stay here you were treated with supportive care, medications including antibiotics and steroids for asthma exacerbation and your symptoms improved. Medications: Continue taking you medications as prescribed Finish doxycycline x 3 more days to complete a 7 day course. Take prednisone taper as follows: 30 mg x 2 days 20 mg x 3 days 10 mg x 3 days Continue taking cardiac medications as prescribed Resume spironolactone as per nephrology. A repeat blood draw should be done in 10-14days and then again in 5 weeks to monitor potassium levels. You have been given a script for this. Dr. Calixto will follow up on the results and call you regarding any further recommendations or changes. Appointments: Follow up with PCP within 4-6 weeks, please call to schedule an appointment. Follow up with nephrology within 5-6 weeks. Please have blood work completed before this appointment. Pending Studies at Discharge: No Stand-Alone Forms: [facility] Medications and DC Order Prescriptions: New metoprolol succinate 50 mg Tablet Extended Release 24 Hr 50 mg PO DAILY Qty: 30 RF: 0 prednisone 10 mg tablet 30 mg PO QAM Qty: 16 RF: 0 spironolactone 50 mg tablet 50 mg PO DAILY Qty: 30 RF: 1 doxycycline hyclate 100 mg Capsule 100 mg PO BID@0700,2000 4 Days Qty: 9 RF: 0 famotidine 20 mg Tablet 20 mg PO DAILY Qty: 30 RF: 0 cyanocobalamin (vitamin B-12) 500 mcg Tablet 1,000 mcg PO DAILY Qty: 30 RF: 0 calcitriol 0.25 mcg Capsule 0.5 mcg PO MoWeFr@0900 Qty: 90 RF: 0 cholecalciferol (vitamin D3) 25 mcg (1,000 unit) Capsule 1,000 unit PO DAILY Qty: 30 RF: 0 Continued rosuvastatin 40 mg tablet 40 mg PO DAILY Qty: 90 RF: 1 ezetimibe [Zetia] 10 mg tablet 10 mg PO DAILY Qty: 90 RF: 1 trazodone 50 mg tablet 50 mg PO HS Qty: 90 RF: 1 levothyroxine 88 mcg tablet See Rx Instructions .ROUTE .COMPLEX Qty: 90 RF: 3 (DME) Omnipod Insulin Refill Cartridge See Dose Instructions .ROUTE .MEDSUPPLY Qty: 180 RF: 3 sertraline 100 mg tablet 100 mg PO DAILY Qty: 30 RF: 5 montelukast [Singulair] 10 mg tablet 10 mg PO DAILY Qty: 90 RF: 1 ranolazine 1,000 mg tablet extended release 12 hr 1,000 mg PO BID Qty: 180 RF: 3 levalbuterol HCl 1.25 mg/3 mL solution for nebulization 1.25 mg INHALATION TID PRN (Reason: ASTHMA) Qty: 36 RF: 5 (DME) FreeStyle Test Strip See Dose Instructions .ROUTE .MEDSUPPLY RF: 0 benzonatate [Tessalon Perles] 100 mg capsule See Rx Instructions PO TID PRN (Reason: cough) Qty: 30 RF: 1 Novolog U-100 Insulin aspart 100 unit/mL solution See Rx Instructions subcut DAILY Qty: 70 RF: 5 aspirin [Adult Aspirin Regimen] 81 mg tablet,delayed release (DR/EC) 81 mg PO DAILY RF: 0 clopidogrel 75 mg tablet 75 mg PO DAILY RF: 0 tramadol 50 mg tablet 50 mg PO Q6H PRN (Reason: Pain) Qty: 60 RF: 0 ofloxacin 0.3 % Drops 5 drp OPHTHALMIC (EYE) BID PRN (Reason: DRAINING EAR) RF: 0 sucralfate [Carafate] 1 gram tablet 1 g PO ACHS RF: 0 fexofenadine [Chelsie Allergy] 180 mg Tablet 180 mg PO DAILY PRN (Reason: ALLERGIES) RF: 0 isosorbide mononitrate 120 mg tablet extended release 24 hr 180 mg PO DAILY RF: 0 olopatadine 0.1 % Drops 1 drp OPHTHALMIC (EYE) BID PRN (Reason: AFFECTED EYE) RF: 0 albuterol sulfate [Ventolin HFA] 90 mcg/actuation Hfa Aerosol Inhaler 2 puff INHALATION Q4 PRN (Reason: Shortness Of Breath Or Wheezing) RF: 0 ipratropium bromide 0.03 % [place],Non-Aerosol 1 spray INTRANASAL ACHS RF: 0 Spiriva with HandiHaler 18 mcg Capsule, W/Inhalation Device 1 cap INHALATION DAILY RF: 0 budesonide-formoterol [Symbicort] 160-4.5 mcg/actuation Hfa Aerosol Inhaler 2 puff INHALATION BID RF: 0 Caltrate 600 plus D 600 mg (1,500 mg)-800 unit Tablet,Chewable 1 tab PO DAILY RF: 0 pantoprazole [Protonix] 40 mg tablet,delayed release (DR/EC) 40 mg PO DAILY RF: 0 Changed gabapentin 100 mg capsule 100 mg PO BID Qty: 270 RF: 2 Discontinued cholecalciferol (vitamin D3) [Vitamin D3] 1,000 unit (25 mcg) tablet 1,000 unit PO DAILY Qty: 90 RF: 1 sodium polystyrene sulfonate [sodium polystyrene (sorb free)] 15 gram/60 mL suspension 60 ml PO UD Qty: 473 RF: 6 prednisone 10 mg tablets,dose pack See Rx Instructions .ROUTE .COMPLEX Qty: 30 RF: 0 metoprolol succinate 100 mg tablet extended release 24 hr 100 mg PO DAILY Qty: 30 RF: 5 calcitriol 0.5 mcg capsule 0.5 mcg PO UD Qty: 45 RF: 3 ranitidine HCl [Zantac] 300 mg tablet 300 mg PO QPM RF: 0 cyanocobalamin (vitamin B-12) [Vitamin B-12] 1,000 mcg Tablet 1,000 mcg PO DAILY RF: 0 nitroglycerin [Nitrostat] 0.4 mg tablet, sublingual 0.4 mg sublingual UD PRN (Reason: Chest Pain) RF: 0 Discharge Orders: Discharge Order (Routine); Ordered 05/09/19 Ordered By: Lisbeth Gutierrez/Other Patient Handouts: Doxycycline tablets or capsules Admission Data Admit Date/Time: 05/03/19 17:16 Attending Provider: Lisbeth Rainey Admit Provider: Elizabeth Burris Primary Care Provider: Mindi Antoine Other Providers: Lisbeth Rainey ; Dwain Thomas Other Interventions: Discharge Summary Assessment (RN) Last Done: 05/09/19 14:01 DC Date/Time DO NOT enter until pt leaves facility: 05/09/19 15:55 Supervising Physician Co-Signing Physician Notes PA Supervision Note: I personally saw and examined the patient. I verified all lobato points and agree with VICKY Odom with the following exceptions and/or additions: Pt feeling much better than on admission. Still some mild HOOKS, not requiring O2. Stable for discharge VSS NAD, obese RRR no mgr Lungs clear, no wcr Abd +BS soft NT ND Ext no edema ASthma exacerbation improved/resolving CKD and potassium issues along with HTN managemetn as per above and will have labs drawn in 10 days as per Nephro recommendation Coding Level of Care Code D/C Day Management >30 mins Diagnoses Asthma exacerbation J45.901 Stage III chronic kidney disease N18.3 Hypokalemia E87.6 Hepatic cirrhosis K74.60 Hepatic cirrhosis type: unspecified hepatic cirrhosis CAD (coronary artery disease) I25.10 Anemia D64.9 Controlled type 2 diabetes mellitus with kidney complication, with long-term current use of insulin E11.29; Z79.4 Depression F32.9 Diabetic peripheral neuropathy E11.42 Gastroparesis K31.84 Hypercholesterolemia E78.00 Hypertension I10 Hypothyroidism E03.[address] Z96.41 Irritable bowel syndrome K58.9 Obstructive sleep apnea G47.33 Secondary hyperparathyroidism of renal origin N25.81 Vitamin D deficiency E55.9 Constipation K59.00 Chest pain R07.9 DVT prophylaxis Z29.9
[2019-05-09] MEDS ORDERED: DOXYCYCLINE HYCLATE 100 MG CAP PO SCH (20:00)
== END 2019-05-09 15:55 | disposition home or self-care (01) | DRG 202 ==
LOC: ED 12:26 → SUATTDRO 17:16 → 3E 17:16

== ENCOUNTER 2020-09-21 11:44 | Inpatient (IN) ==
[2020-09-21] MEDS ORDERED: NovoLIN-R INSULIN PER UNIT CHARGE IV STA (12:23)
[2020-09-21] MEDS ORDERED: DEXTROSE 50% 50 ML SYRINGE IV STA (12:23)
[2020-09-21] MEDS ORDERED: ALBUTEROL 0.083% NEBU SOLN 3 ML VIAL NEB STA (12:23)
--- NOTE | 2020-09-21 12:34 | Emergency Department Note ---
History of Present Illness General Chief complaint: Abnormal Labs/Diagnostic Testing Stated complaint: ELEVATED POTASSIUM Time Seen by Provider: 09/21/20 12:16 Source: patient History of Present Illness Provider complaint: High potassium Onset (ago): hour(s) Severity: moderate Pain Consistency: + constant Maximum Pain Intensity: 0 Quality: + other (Potassium of 6.2) Relieved By: + none Exacerbated By: + other (Bactrim started 3 days ago) Associated symptoms: + shortness of breath (Chronic unchanged from asthma); no chest pain, no cough, no fever/chills, no headaches or no nausea/vomiting This is a 70-year-old female with history of chronic kidney disease presenting with elevated potassium today. The patient was getting iron infusions and they checked her blood work and her potassium was 6.2 so she was sent here for evaluation. She complains of some dizziness which started after starting her Bactrim 3 days ago. She is being treated for a UTI. She states that otherwise she feels well. She has no fever, cough or cold symptoms, chest pain, shortness of breath, palpitations, abdominal pain, vomiting or diarrhea. Home Medications Medication Instructions Recorded Confirmed Type calcium carbonate 600 mg(1,500 1 tab PO QAM 08/27/18 09/21/20 History mg)-vitamin D3 800 unit chewable tablet (Caltrate 600 plus D) fexofenadine 180 mg tablet 180 mg PO DAILY PRN 08/27/18 09/21/20 History (Chelsie Allergy) ipratropium bromide 21 mcg (0.03 1 spray INTRANASAL ACHS 08/27/18 09/21/20 History %) nasal spray olopatadine 0.1 % eye drops 1 drp OPHTHALMIC (EYE) BID PRN 08/27/18 09/21/20 History tiotropium bromide 18 mcg capsule 1 cap INHALATION DAILY 08/27/18 09/21/20 History with inhalation device (Spiriva with HandiHaler) aspirin 81 mg tablet,delayed 81 mg PO DAILY 09/04/18 09/21/20 History release (Adult Aspirin Regimen) tramadol 50 mg tablet 50 mg PO Q6H PRN #60 tab 09/04/18 09/21/20 Rx levalbuterol HCl 1.25 mg/3 mL 1.25 mg INHALATION TID PRN #36 ml 03/02/19 09/21/20 Rx solution for nebulization blood sugar diagnostic (AnnaStyle ea 03/15/19 08/24/20 History Test) cyanocobalamin (vitamin B-12) 500 1,000 mcg PO DAILY #30 tab 05/09/19 09/21/20 Rx mcg tablet albuterol sulfate 90 mcg/actuation 2 puff INHALATION Q4 PRN #18 gm 06/23/19 09/21/20 Rx aerosol inhaler (Ventolin HFA) fluticasone furoate 200 1 puffs INH DAILY #1 inhaler 06/23/19 09/21/20 Rx mcg-vilanterol 25 mcg/dose inhalation powder (Breo Ellipta) isosorbide mononitrate 120 mg 180 mg PO DAILY #135 tab 09/27/19 09/21/20 Rx tablet,extended release 24 hr spironolactone 100 mg tablet 100 mg PO DAILY #90 tab 10/13/19 09/21/20 Rx cholecalciferol (vitamin D3) 25 25 mcg PO DAILY #90 tab 11/22/19 09/21/20 Rx mcg (1,000 unit) tablet Omnipod Insulin Refill (insulin #180 ea NS 01/19/20 08/24/20 Rx pump cartridge) ofloxacin 0.3 % eye drops 5 drp OPHTHALMIC (EYE) BID PRN #10 02/15/20 09/21/20 Rx ml metoprolol succinate 50 mg 75 mg PO BID #270 tab 02/24/20 09/21/20 Rx tablet,extended release 24 hr clopidogrel 75 mg tablet 75 mg PO DAILY #90 tab 04/05/20 09/21/20 Rx ranolazine 1,000 mg 1,000 mg PO BID #180 tab 04/18/20 09/21/20 Rx tablet,extended release,12 hr montelukast 10 mg tablet 10 mg PO DAILY #90 tab 05/03/20 09/21/20 Rx (Singulair) losartan 25 mg tablet 25 mg PO DAILY #90 tab 07/11/20 09/21/20 Rx gabapentin 100 mg capsule 100 mg PO BID #180 cap 07/17/20 09/21/20 Rx rosuvastatin 40 mg tablet 40 mg PO DAILY #90 tab 07/18/20 09/21/20 Rx trazodone 50 mg tablet 50 mg PO HS #90 tab 08/08/20 09/21/20 Rx Omnipod Dash 5 Pack Pod (insulin #90 ea NS 08/16/20 08/24/20 Rx pump cartridge) famotidine 20 mg tablet 20 mg PO DAILY #90 tab 09/07/20 09/21/20 Rx sertraline 100 mg tablet 150 mg PO DAILY 90 Days #135 tab 09/12/20 09/21/20 Rx sulfamethoxazole 800 1 tab PO BID 7 Days #14 tab 09/18/20 09/21/20 Rx mg-trimethoprim 160 mg tablet (Bactrim DS) sodium bicarbonate 650 mg tablet 650 mg PO DAILY #90 tab 09/19/20 09/21/20 Rx calcitriol 0.25 mcg capsule 0.25 mcg PO 3XWK 09/21/20 09/21/20 History insulin aspart U-100 100 unit/mL 230 unit SUBCUT DIRECTED 09/21/20 09/21/20 History subcutaneous solution (Novolog U-100 Insulin aspart) levothyroxine 88 mcg tablet 88 mcg PO QAM 09/21/20 09/21/20 History pantoprazole 40 mg tablet,delayed 40 mg PO QAM 09/21/20 09/21/20 History release Allergies Allergy/AdvReac Type Severity Reaction Status Date / Time levofloxacin Allergy Intermediate rash Verified 09/21/20 14:00 enalapril Allergy Unknown DRY COUGH Verified 09/21/20 14:00 insulin detemir Allergy Unknown HIVES Verified 09/21/20 14:00 enalaprilat [From Vasotec] Allergy Unknown Verified 09/21/20 14:00 Past Med/Surg History Medical History Acute kidney injury Antiplatelet or antithrombotic long-term use Asymptomatic carotid artery stenosis Bilateral carotid artery disease CAD (coronary artery disease) Cerebral arterial aneurysm Chest pain due to CAD Chronic reflux esophagitis Controlled type 2 diabetes mellitus with kidney complication, with long-term current use of insulin Diabetic peripheral neuropathy Dysesthesia ETD (eustachian tube dysfunction) Frequency of urination Gastroparesis Hepatic cirrhosis History of anemia History of ASCVD History of asthma History of depression Hypercholesterolemia Hypertension Hypokalemia Hypothyroidism Intestinal metaplasia of gastric mucosa Irritable bowel syndrome Metabolic acidosis KEREN (obstructive sleep apnea) Painful urination Pulmonary emphysema 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 Stage III chronic kidney disease Surgical History H/O: hysterectomy History of cardiac catheterization History of knee replacement Hx of CABG (~2009) Hx of cataract surgery Hx of colonoscopy (~2013) S/P nasal surgery Status post breast reduction Family History Mother Carotid artery stenosis Breast cancer Heart failure Myocardial infarction Brother Carotid artery stenosis Peripheral vascular disease Stroke syndrome Hx of CABG Sinusitis Asthma Myocardial infarction Environmental allergies Sister Brain cancer Grandmother Myocardial infarction Denies family history of Ovarian cancer Prostate cancer Crohn's disease Bleeding disorder Colorectal cancer Ulcerative colitis Social History Smoking Status: Never smoker Second Hand Exposure: Yes; Hx Alcohol Use: Yes Alcohol type: wine Alcohol Intake Frequency Comment: rare Hx Substance Use: No Preferred Language: Qatari Communication Ability: Effective Visual Impairment: No Limitations Hearing Ability: Normal Angle Roll Operator Required: No Beliefs That Will Affect Care: None marital status: Current Living Situation: Spouse 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 and A total of 10 systems reviewed and were otherwise negative Physical Exam Vital Signs Vital Signs - 24 hr 09/21/20 11:49 09/21/20 12:18 09/21/20 12:31 Temperature 36.7 C Temperature Source Temporal Artery Scan Pulse Rate 50 L 48 L 49 L Pulse Rate from SpO2 Sensor 54 L 51 L Pulse Rhythm Regular Pulse Strength Normal Respiratory Rate 20 23 20 Respiratory Effort / Characteristics Non-Labored Respiratory Depth Normal Respiratory Pattern Regular Blood Pressure 152/62 H 173/72 H 167/59 H Blood Pressure Mean 92 105 95 Blood Pressure Position Sitting Pulse Oximetry 93 96 96 Oxygen Delivery Method Room Air Sepsis Recent Fever Within 48 Hours No Sepsis New/Unexplained Change in Mental Status N/A Sepsis Action Taken by Nursing No Action Required 09/21/20 12:51 09/21/20 14:01 Temperature Temperature Source Pulse Rate 47 L Pulse Rate from SpO2 Sensor 49 L Pulse Rhythm Pulse Strength Respiratory Rate 20 19 Respiratory Effort / Characteristics Non-Labored Spontaneous Respiratory Depth Respiratory Pattern Blood Pressure 154/53 H Blood Pressure Mean 86 Blood Pressure Position Pulse Oximetry 95 97 Oxygen Delivery Method Room Air Sepsis Recent Fever Within 48 Hours Sepsis New/Unexplained Change in Mental Status Sepsis Action Taken by Nursing Constitutional: Vital signs reviewed. Eyes: Pupils are equal round reactive to light. Conjunctiva are noninjected. ENT: Pharynx is clear without erythema or exudate. Mucous membranes are moist. Neck supple without meningeal signs. Respiratory: Clear to auscultation bilaterally. Breath sounds are equal bilaterally. Cardiovascular: Bradycardic. Heart rate 47. GI: Soft, nondistended and nontender. Bowel sounds are present. Musculoskeletal: No peripheral edema. No lower extremity tenderness. Integumentary: No cyanosis. or jaundice. Neurological: The patient is awake and alert. No focal deficits. Psychiatric: Normal affect. Not anxious appearing. Course Administered Medications Discontinued Medications Albuterol (Albuterol 0.083% Nebu Soln 3 Ml Vial) 2.5 mg NEB NOW STA Stop: 09/21/20 12:24 Last Admin: 09/21/20 12:50 Dose: 2.5 mg Documented by: [id number] Dextrose (Dextrose 50% 50 Ml Syringe) 50 ml IV NOW STA Stop: 09/21/20 12:24 Last Admin: 09/21/20 12:59 Dose: 50 ml Documented by: [id number] Calcium Gluconate 1,000 mg/ (Sodium Chloride) 60 mls @ 240 mls/hr IV NOW ONE Stop: 09/21/20 14:14 Last Infusion: 09/21/20 14:18 Dose: 0 mls/hr Documented by: [id number] Admin: 09/21/20 14:01 Dose: 240 mls/hr Documented by: [id number] Insulin Human Regular (Novolin-R Insulin Per Unit Charge) 10 units IV NOW STA Stop: 09/21/20 12:24 Last Admin: 09/21/20 12:59 Dose: 10 units Documented by: [id number] Cosigned by: [id number] Critical Care Time Critical Care Time: Yes Total Critical Care Time: 35 I have personally spent approximately 35 minutes of critical care time in the direct management of this patient. This includes bedside care, interpretation of diagnostic studies, and testing, discussion with consultants, patient, and family members, and other required patient management activities. These minutes are in excess of all separately billable procedures. Medical Decision Making Differential Diagnosis Medication interaction, medication side effect, acute on chronic kidney injury, dysrhythmia, hyperkalemia Medical Records Attestation: I reviewed the patient's medical records. I did perform a limited focused review of portions of the patient's old chart on the electronic medical record. The patient had blood work at 10 AM this morning. It showed an elevated creatinine at 3.2 which is above her baseline. She also had a potassium of 6.2. Home Medications Current Medication List: was personally reviewed by me Laboratory Data Attestation: I reviewed the patient's lab results. Lab Results 09/21/20 09/21/20 09/21/20 Range/Units 12:45 13:12 13:12 POC Hgb 12.9 (12.0-16.0) g/dl POC Hct 38 (37-47) % POC Sodium 137 (135-144) mmol/L POC Potassium 6.3 H* (3.3-5.0) mmol/L POC Chloride 108 (101-112) mmol/L POC Total CO2 18 L (24-31) mmol/L POC Anion Gap 18.0 (16-25) mmol/L POC BUN 46 H (7-18) mg/dl POC Creatinine 3.2 H (0.6-1.3) mg/dl POC Glucose (70-99) mg/dl POC Glucose (other) 146 H (70-99) mg/dl POC Ioniz Calcium Chasity 1.26 (1.12-1.32) mmol/l COVID-19 Eval Order Covid19 at [facility] SARS-CoV-2 (PCR) NEGATIVE (Negative) 09/21/20 09/21/20 Range/Units 13:43 14:36 POC Hgb (12.0-16.0) g/dl POC Hct (37-47) % POC Sodium (135-144) mmol/L POC Potassium (3.3-5.0) mmol/L POC Chloride (101-112) mmol/L POC Total CO2 (24-31) mmol/L POC Anion Gap (16-25) mmol/L POC BUN (7-18) mg/dl POC Creatinine (0.6-1.3) mg/dl POC Glucose 138 H 91 (70-99) mg/dl POC Glucose (other) (70-99) mg/dl POC Ioniz Calcium Chasity (1.12-1.32) mmol/l COVID-19 Eval Order SARS-CoV-2 (PCR) (Negative) ECG Data Attestation: I personally reviewed and interpreted this ECG as follows: Indication: + other (High potassium) Rate (beats per minute): 42 Rhythm: + junctional ECG Intervals/blocks: + Normal QRS ECG Meridian: + Normal ECG ST segments: no ST elevation ECG Findings: no Peaked T waves MDM Narrative I did evaluate the patient as noted above. The patient is fairly asymptomatic other than feeling slightly dizzy from taking Bactrim 3 days ago. IV access was established. I did place an order for continuous cardiac monitoring. The monitor showed sinus bradycardia rate of 48 bpm. I did order and personally review the patient's 12-lead EKG as described above. She does not have hyperacute T waves. She is bradycardic. I did order and review the patient's blood work as noted in the electronic medical record. Potassium is confirmed at 6.3. Creatinine is 3.2. I did treat her with IV regular insulin and 50 of dextrose IV. She was also given albuterol nebulizer. I did talk to the pharmacist because of a reported history of allergy to Levemir. The pharmacist did not feel she would likely have a reaction to the regular insulin. She did not have a reaction to it. Repeat blood sugar is 91. She was given a meal. I did discuss the case with the hospitalist and window caser. Impression & Plan Acute hyperkalemia, Acute kidney injury superimposed on chronic kidney disease, Bradycardia Discharge Plan Visit Data Chief Complaint: Abnormal Labs/Diagnostic Testing Stated Complaint: ELEVATED POTASSIUM ED Provider: Jesus Alberto Melton Discharge Problem: Acute hyperkalemia, Acute kidney injury superimposed on chronic kidney disease, Bradycardia Patient Disposition: Being Evaluated by Hospitalist Forms Stand Alone Forms: My [facility] [employer] Prescriptions Prescriptions: No Action isosorbide mononitrate 120 mg tablet extended release 24 hr 180 mg PO DAILY Qty: 135 RF: 3 spironolactone 100 mg tablet 100 mg PO DAILY Qty: 90 RF: 3 cholecalciferol (vitamin D3) 25 mcg (1,000 unit) tablet 25 mcg PO DAILY Qty: 90 RF: 1 (DME) Omnipod Insulin Refill Cartridge See Dose Instructions .ROUTE .MEDSUPPLY Qty: 180 RF: 3 ofloxacin 0.3 % drops 5 drp OPHTHALMIC (EYE) BID PRN (Reason: DRAINING EAR) Qty: 10 RF: 3 clopidogrel 75 mg tablet 75 mg PO DAILY Qty: 90 RF: 1 ranolazine 1,000 mg tablet extended release 12 hr 1,000 mg PO BID Qty: 180 RF: 3 montelukast [Singulair] 10 mg tablet 10 mg PO DAILY Qty: 90 RF: 1 losartan 25 mg tablet 25 mg PO DAILY Qty: 90 RF: 3 gabapentin 100 mg capsule 100 mg PO BID Qty: 180 RF: 1 rosuvastatin 40 mg tablet 40 mg PO DAILY Qty: 90 RF: 1 trazodone 50 mg tablet 50 mg PO HS Qty: 90 RF: 1 (DME) [employer] 5 Pack Pod Cartridge See Rx Instructions .ROUTE .MEDSUPPLY Qty: 90 RF: 3 famotidine 20 mg tablet 20 mg PO DAILY Qty: 90 RF: 1 sertraline 100 mg tablet 150 mg PO DAILY 90 Days Qty: 135 RF: 1 sulfamethoxazole-trimethoprim [Bactrim DS] 800-160 mg tablet 1 tab PO BID 7 Days Qty: 14 RF: 0 sodium bicarbonate 650 mg tablet 650 mg PO DAILY Qty: 90 RF: 3 albuterol sulfate [Ventolin HFA] 90 mcg/actuation HFA aerosol inhaler 2 puff INHALATION Q4 PRN (Reason: Shortness Of Breath Or Wheezing) Qty: 18 RF: 11 Breo Ellipta 200-25 mcg/dose blister with device 1 puffs INH DAILY Qty: 1 RF: 11 levalbuterol HCl 1.25 mg/3 mL solution for nebulization 1.25 mg INHALATION TID PRN (Reason: ASTHMA) Qty: 36 RF: 5 (DME) FreeStyle Test Strip See Dose Instructions .ROUTE .MEDSUPPLY RF: 0 aspirin [Adult Aspirin Regimen] 81 mg tablet,delayed release (DR/EC) 81 mg PO DAILY RF: 0 tramadol 50 mg tablet 50 mg PO Q6H PRN (Reason: Pain) Qty: 60 RF: 0 metoprolol succinate 50 mg tablet extended release 24 hr 75 mg PO BID Qty: 270 RF: 3 fexofenadine [Chelsie Allergy] 180 mg Tablet 180 mg PO DAILY PRN (Reason: ALLERGIES) RF: 0 olopatadine 0.1 % Drops 1 drp OPHTHALMIC (EYE) BID PRN (Reason: AFFECTED EYE) RF: 0 ipratropium bromide 0.03 % [place],Non-Aerosol 1 spray INTRANASAL ACHS RF: 0 Spiriva with HandiHaler 18 mcg Capsule, W/Inhalation Device 1 cap INHALATION DAILY RF: 0 Caltrate 600 plus D 600 mg (1,500 mg)-800 unit Tablet,Chewable 1 tab PO QAM RF: 0 cyanocobalamin (vitamin B-12) 500 mcg Tablet 1,000 mcg PO DAILY Qty: 30 RF: 0 levothyroxine 88 mcg tablet 88 mcg PO QAM RF: 0 insulin aspart U-100 [Novolog U-100 Insulin aspart] 100 unit/mL solution 230 unit subcut DIRECTED RF: 0 pantoprazole 40 mg tablet,delayed release (DR/EC) 40 mg PO QAM RF: 0 calcitriol 0.25 mcg capsule 0.25 mcg PO 3XWK RF: 0 Referrals Referrals: Mindi Antoine MD [Primary Care Provider] -
[2020-09-21 12:58] LABS: iSTAT Creatinine 3.2 mg/dl (0.6-1.3); iSTAT Hemoglobin 12.9 g/dl (12.0-16.0); iSTAT Ionized Calcium 1.26 mmol/l (1.12-1.32); iSTAT Potassium 6.3 mmol/L (3.3-5.0)
--- NOTE | 2020-09-21 13:27 | Electrocardiogram Report ---
Test Reason : Blood Pressure : / mmHG Vent. Rate : 042 BPM Atrial Rate : 047 BPM P-R Int : 000 ms QRS Dur : 092 ms QT Int : 464 ms P-R-T Axes : 000 072 059 degrees QTc Int : 387 ms Junctional bradycardia Abnormal ECG When compared with ECG of 07-MAY-2019 10:02, Junctional rhythm has replaced Sinus rhythm Vent. rate has decreased BY 25 BPM T wave inversion no longer evident in Inferior leads T wave inversion no longer evident in Lateral leads Confirmed by Jigar Thomas [id number] on 09/21/2020 1:26:52 PM Referred By: Confirmed By:Carlos Thomas
[2020-09-21] MEDS ORDERED: CALCIUM GLUCONATE 10% 1,000 MG in SODIUM CHLORIDE 0.9% 50 ML IV ONE (14:00)
--- NOTE | 2020-09-21 14:02 | History & Physical Report ---
Date of Service September 21, 2020 Assessment & Plan (1) Junctional bradycardia: Plan: Junctional bradycardia/CAD/hypertension- Decreased heart rate likely secondary to hyperkalemia, which will be treated. Hold metoprolol succinate 24-hour, 50 mg daily The patient will be admitted to telemetry for serial cardiac enzymes, serial EKG's, cardiac rhythm monitoring and a 2-D echocardiogram with Dopplers. Continue aspirin 81 mg daily, clopidogrel 75 mg daily, isosorbide mononitrate 100 mg daily, ranolazine 1000 mg p.o. twice daily. We will hold spironolactone, losartan and metoprolol succinate for now. 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 (3) CAD (coronary artery disease): Plan: See above (4) Asthma: Plan: Continue fluticasone/Vilanterol and leave albuterol nebulizer 3 times daily as needed (5) Chronic reflux esophagitis: Plan: Continue pantoprazole (6) Controlled type 2 diabetes mellitus with kidney complication, with long-term current use of insulin: Plan: Patient was already told by ED staff to pull her insulin pump. Therefore: Place on Accu-Cheks before meals and at bedtime with NovoLog coverage per scale Check hemoglobin A1c When patient gets replacement cartridges for her pump, would resume her pump again. (7) Diabetic peripheral neuropathy: Plan: Continue gabapentin (8) Hypercholesterolemia: Plan: Continue rosuvastatin (9) Gastroparesis: Plan: Continue continue usual meds (10) Insulin pump in place: Plan: Continue as above (11) Hypothyroidism: Plan: Continue levothyroxine (12) Hypertension: Plan: See above (13) Hyperkalemia: Plan: Holding spironolactone and losartan Give calcium gluconate 1 g IV x1 Was already given an amp of D50 and 10 units of regular insulin IV by the ED. We will need to watch her blood sugars closely, as she has a brittle diabetic History of Present Illness Chief Complaint: The patient is referred to the emergency department by her outpatient PCP due to abnormal laboratories, with potassium being 6.2 earlier in the day today. Primary Care Provider: Mindi Antoine MD The patient is a 70-year-old female with a past medical history including stage IV chronic kidney disease, CAD, mitral regurgitation, bilateral carotid artery disease, hepatic cirrhosis, anemia, ASCVD, asthma, cerebral artery aneurysm, chronic reflux esophagitis, diabetes mellitus type 2 with long-term insulin use, depression, diabetic with peripheral neuropathy, diabetic gastroparesis, hypercholesterolemia, hypertension, hypothyroidism, insulin pump, intestinal metaplasia of gastric mucosa, hearing loss, vitamin D deficiency and secondary hyperparathyroidism of renal origin. Patient has been taking Bactrim DS twice daily, on day 5/7 for urinary tract infection. She reports not feeling well for the past several days. Routine laboratories in the outpatient setting noted a potassium of 6.2, and creatinine 3.28, increased above her baseline. She was referred to the ED for further assessment. She reports that her primary symptom is that of ambulatory dysfunction, "walking around like she is drunk". Allergies Allergy/AdvReac Type Severity Reaction Status Date / Time levofloxacin Allergy Intermediate rash Verified 09/21/20 14:00 enalapril Allergy Unknown DRY COUGH Verified 09/21/20 14:00 insulin detemir Allergy Unknown HIVES Verified 09/21/20 14:00 enalaprilat [From Vasotec] Allergy Unknown Verified 09/21/20 14:00 Home Medications Medication Instructions Recorded Confirmed Type calcium carbonate 600 mg(1,500 1 tab PO QAM 08/27/18 09/21/20 History mg)-vitamin D3 800 unit chewable tablet (Caltrate 600 plus D) fexofenadine 180 mg tablet 180 mg PO DAILY PRN 08/27/18 09/21/20 History (Chelsie Allergy) ipratropium bromide 21 mcg (0.03 1 spray INTRANASAL ACHS 08/27/18 09/21/20 His tory %) nasal spray olopatadine 0.1 % eye drops 1 drp OPHTHALMIC (EYE) BID PRN 08/27/18 09/21/20 History tiotropium bromide 18 mcg capsule 1 cap INHALATION DAILY 08/27/18 09/21/20 History with inhalation device (Spiriva with HandiHaler) aspirin 81 mg tablet,delayed 81 mg PO DAILY 09/04/18 09/21/20 History release (Adult Aspirin Regimen) tramadol 50 mg tablet 50 mg PO Q6H PRN #60 tab 09/04/18 09/21/20 Rx levalbuterol HCl 1.25 mg/3 mL 1.25 mg INHALATION TID PRN #36 ml 03/02/19 09/21/20 Rx solution for nebulization blood sugar diagnostic (Cristobal ramirez 03/15/19 08/24/20 History Test) cyanocobalamin (vitamin B-12) 500 1,000 mcg PO DAILY #30 tab 05/09/19 09/21/20 Rx mcg tablet albuterol sulfate 90 mcg/actuation 2 puff INHALATION Q4 PRN #18 gm 06/23/19 09/21/20 Rx aerosol inhaler (Ventolin HFA) fluticasone furoate 200 1 puffs INH DAILY #1 inhaler 06/23/19 09/21/20 Rx mcg-vilanterol 25 mcg/dose inhalation powder (Breo Ellipta) isosorbide mononitrate 120 mg 180 mg PO DAILY #135 tab 09/27/19 09/21/20 Rx tablet,extended release 24 hr spironolactone 100 mg tablet 100 mg PO DAILY #90 tab 10/13/19 09/21/20 Rx cholecalciferol (vitamin D3) 25 25 mcg PO DAILY #90 tab 11/22/19 09/21/20 Rx mcg (1,000 unit) tablet Omnipod Insulin Refill (insulin #180 ea NS 01/19/20 08/24/20 Rx pump cartridge) ofloxacin 0.3 % eye drops 5 drp OPHTHALMIC (EYE) BID PRN #10 02/15/20 09/21/20 Rx ml metoprolol succinate 50 mg 75 mg PO BID #270 tab 02/24/20 09/21/20 Rx tablet,extended release 24 hr clopidogrel 75 mg tablet 75 mg PO DAILY #90 tab 04/05/20 09/21/20 Rx ranolazine 1,000 mg 1,000 mg PO BID #180 tab 04/18/20 09/21/20 Rx tablet,extended release,12 hr montelukast 10 mg tablet 10 mg PO DAILY #90 tab 05/03/20 09/21/20 Rx (Singulair) losartan 25 mg tablet 25 mg PO DAILY #90 tab 07/11/20 09/21/20 Rx gabapentin 100 mg capsule 100 mg PO BID #180 cap 07/17/20 09/21/20 Rx rosuvastatin 40 mg tablet 40 mg PO DAILY #90 tab 07/18/20 09/21/20 Rx trazodone 50 mg tablet 50 mg PO HS #90 tab 08/08/20 09/21/20 Rx Omnipod Dash 5 Pack Pod (insulin #90 ea NS 08/16/20 08/24/20 Rx pump cartridge) famotidine 20 mg tablet 20 mg PO DAILY #90 tab 09/07/20 09/21/20 Rx sertraline 100 mg tablet 150 mg PO DAILY 90 Days #135 tab 09/12/20 09/21/20 Rx sulfamethoxazole 800 1 tab PO BID 7 Days #14 tab 09/18/20 09/21/20 Rx mg-trimethoprim 160 mg tablet (Bactrim DS) sodium bicarbonate 650 mg tablet 650 mg PO DAILY #90 tab 09/19/20 09/21/20 Rx calcitriol 0.25 mcg capsule 0.25 mcg PO 3XWK 09/21/20 09/21/20 History insulin aspart U-100 100 unit/mL 230 unit SUBCUT DIRECTED 09/21/20 09/21/20 History subcutaneous solution (Novolog U-100 Insulin aspart) levothyroxine 88 mcg tablet 88 mcg PO QAM 09/21/20 09/21/20 History pantoprazole 40 mg tablet,delayed 40 mg PO QAM 09/21/20 09/21/20 History release Past Med/Surg History Medical History Acute kidney injury Antiplatelet or antithrombotic long-term use Asymptomatic carotid artery stenosis Bilateral carotid artery disease CAD (coronary artery disease) Cerebral arterial aneurysm Chest pain due to CAD Chronic reflux esophagitis Controlled type 2 diabetes mellitus with kidney complication, with long-term current use of insulin Diabetic peripheral neuropathy Dysesthesia ETD (eustachian tube dysfunction) Frequency of urination Gastroparesis Hepatic cirrhosis History of anemia History of ASCVD History of asthma History of depression Hypercholesterolemia Hypertension Hypokalemia Hypothyroidism Intestinal metaplasia of gastric mucosa Irritable bowel syndrome Metabolic acidosis KEREN (obstructive sleep apnea) Painful urination Pulmonary emphysema 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 Stage III chronic kidney disease Surgical History H/O: hysterectomy History of cardiac catheterization History of knee replacement Hx of CABG (~2009) Hx of cataract surgery Hx of colonoscopy (~2013) S/P nasal surgery Status post breast reduction Family History Mother Carotid artery stenosis Breast cancer Heart failure Myocardial infarction Brother Carotid artery stenosis Peripheral vascular disease Stroke syndrome Hx of CABG Sinusitis Asthma Myocardial infarction Environmental allergies Sister Brain cancer Grandmother Myocardial infarction Denies family history of Ovarian cancer Prostate cancer Crohn's disease Bleeding disorder Colorectal cancer Ulcerative colitis Social History Smoking Status: Never smoker Second Hand Exposure: Yes; Hx Alcohol Use: Yes Alcohol type: wine Alcohol Intake Frequency Comment: rare Hx Substance Use: No Preferred Language: Spanish Communication Ability: Effective Visual Impairment: No Limitations Hearing Ability: Normal Ware Server Required: No Beliefs That Will Affect Care: None marital status: Current Living Situation: Spouse 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 Feels Safe at Home: Yes Childhood Exposure to Second-Hand Smoke: Yes Dental Care, Regularly: Yes Physical Activity Frequency: Does not Exercise Seatbelt Use: always Sunscreen Use: Yes Assistive Devices: None Review of Systems Review of Systems: The patient denies chest pain, palpitations, shortness of breath, dyspnea on exertion, cough, lower extremity swelling, sore throat, fevers, chills, sweats, nausea, vomiting, diarrhea , constipation, abdominal pain, pelvic pain, blood in urine or stool, dysuria, urinary frequency or urgency, headache, memory loss, loss of consciousness, rash, abnormal bruising or bleeding, focal weakness, numbness or tingling in arms or legs, generalized arthralgias or myalgias, back or neck pain, or night sweats. The review of systems is otherwise negative other than for that already noted above, and at least 10 systems have been reviewed. Physical Exam Physical Exam: The patient is awake, alert and oriented 3, well developed and well nourished, normocephalic and atraumatic, lying in bed and in no acute distress. HEENT--PERRL, EOMI, mucous membranes and oropharynx normal. Neck--supple. No JVD. No bruits. Thyroid normal, trachea midline, no lauren nopathy. Heart--normal S1 and S2. No murmurs, rubs or gallops. Lungs--clear bilaterally, no respiratory distress, no accessory muscle use. Abdomen--normal bowel sounds and soft. Nontender. Nondistended. Morbidly obese Extremities--no cyanosis or clubbing. No edema. Dermatologic--normal skin turgor, normal color, no abnormal lymph nodes, no rash. Neurologic--cranial nerves II through XII grossly intact. Rheumatologic--normal range of motion. Psychiatric--normal affect. Results & Data Results & Data ([facility]) Vital Signs (Past 12 Hours) Vital Signs Temp Pulse Resp BP Pulse Ox 09/21/20 12:51 20 95 09/21/20 12:31 49 L 20 167/59 H 96 09/21/20 12:18 48 L 23 173/72 H 96 09/21/20 11:49 98.1 F 50 L 20 152/62 H 93 Laboratory Results Laboratory Results POC Hgb 12.9 g/dl (12.0-16.0) 09/21/20 12:45 POC Hct 38 % (37-47) 09/21/20 12:45 POC Sodium 137 mmol/L (135-144) 09/21/20 12:45 POC Potassium 6.3 mmol/L (3.3-5.0) H* 09/21/20 12:45 POC Chloride 108 mmol/L (101-112) 09/21/20 12:45 POC Total CO2 18 mmol/L (24-31) L 09/21/20 12:45 POC Anion Gap 18.0 mmol/L (16-25) 09/21/20 12:45 POC BUN 46 mg/dl (7-18) H 09/21/20 12:45 POC Creatinine 3.2 mg/dl (0.6-1.3) H 09/21/20 12:45 POC Glucose 138 mg/dl (70-99) H 09/21/20 13:43 POC Glucose (other) 146 mg/dl (70-99) H 09/21/20 12:45 POC Ioniz Calcium Chasity 1.26 mmol/l (1.12-1.32) 09/21/20 12:45 COVID-19 Eval Order Covid19 at [facility] 09/21/20 13:12 ECG Additional Comments: [facility], [place] Electrocardiogram ReportSigned Patient: RUFUS STAFFORD Date: 09/21/20MR#: [id number] Phy: Acct ID: [id number] Phy: Mindi Antoine MDBirth Date: 1950Fam Phy:Age: 70Location: EDSex: FRoom/Bed: cc: ~ DICTATED BY: Jigar Thomas MD Test Reason : Blood Pressure : / mmHG Vent. Rate : 042 BPM Atrial Rate : 047 BPM P-R Int : 000 ms QRS Dur : 092 ms QT Int : 464 ms P-R-T Axes : 000 072 059 degrees QTc Int : 387 ms Junctional bradycardia Abnormal ECG When compared with ECG of 07-MAY-2019 10:02, Junctional rhythm has replaced Sinus rhythm Vent. rate has decreased BY 25 BPM T wave inversion no longer evident in Inferior leads T wave inversion no longer evident in Lateral leads Confirmed by Jigar Thomas [id number] on 09/21/2020 1:26:52 PM Referred By: Confirmed By:Carlos Thomas Signed By:09/21/20 1326 Dictated: 09/21/20 1157 Transcribed: Benefit Director: The status of this report is Signed. Code Status & VTE Plan Code Status Full code PG Care Time/CCT Total # of Minutes Spent Total Time Spent with Patient: Total time spent is greater than 50% in coordi nation of care (as documented) at patient's floor/unit and/or counseling patient: Coding Level of Care Code 45917 Initial Inpt Care Lvl 3 Diagnoses Junctional bradycardia R00.1 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 CAD (coronary artery disease) I25.10 Asthma J45.909 Chronic reflux esophagitis K21.0 Controlled type 2 diabetes mellitus with kidney complication, with long-term current use of insulin E11.29; Z79.4 Diabetic peripheral neuropathy E11.42 Hypercholesterolemia E78.00 Gastroparesis K31.[address] Z96.41 Hypothyroidism E03.9 Hypertension I10 Hyperkalemia E87.5
[2020-09-21] MEDS ORDERED: ONDANSETRON INJ 2 MG/ML 2 ML VIAL IV PRN (17:10)
[2020-09-21] MEDS ORDERED: OFLOXACIN 0.3% OP SOLN 5 ML BTL OP PRN (17:10)
[2020-09-21] MEDS ORDERED: traMADol HCL 50 MG TABLET PO PRN (17:10)
[2020-09-21] MEDS ORDERED: CARBOHYDRATES FOR HYPOGLYCEMIA PO PRN (17:10)
[2020-09-21] MEDS ORDERED: DEXTROSE 50% 50 ML SYRINGE IV PRN (17:10)
[2020-09-21] MEDS ORDERED: GLUCOSE 40% GEL 15 GM TUBE PO PRN (17:10)
[2020-09-21] MEDS ORDERED: LEVALBUTEROL HCL 1.25 MG/3 ML NEB INH PRN (17:10)
[2020-09-21] MEDS ORDERED: GLUCOSE 10 TABS/TUBE PO PRN (17:10)
[2020-09-21] MEDS ORDERED: ACETAMINOPHEN 325 MG TAB PO PRN (17:10)
[2020-09-21] MEDS ORDERED: INSULIN ASPART PER UNIT SQ SCH (17:10)
[2020-09-21] MEDS ORDERED: GLUCAGON FOR INJ 1 MG VIAL SQ PRN (17:10)
[2020-09-21] MEDS: INSULIN ASPART 100 UNITS/ML 3 ML PEN SC SCH ×2 (18:35→20:41)
[2020-09-21] MEDS: PANTOprazole 40 MG TAB PO SCH (20:29)
[2020-09-21] MEDS: traZODone HCL 50 MG TAB PO SCH (20:29)
[2020-09-21] MEDS: GABAPENTIN 100 MG CAP PO SCH (20:29)
[2020-09-21] MEDS: IPRATROPIUM BROMIDE NASAL SPRAY 0.06% 15ML SCH (20:29)
[2020-09-21] MEDS: RANOLAZINE 500 MG ER TAB PO SCH (20:29)
[2020-09-21] MEDS ORDERED: SODIUM POLYSTYRENE SULFONATE 15G/60ML SUSP PO STA (23:27)
[2020-09-22 03:20] LABS: Hematocrit (blood only) 40.8 % (37-47); Hemoglobin 13.3 g/dL (12.0-16.0); Mean Corpuscular Hemoglobin 32.4 pg (25-34); Mean Corpuscular Hgb Conc 32.6 g/dL (32-36); Mean Corpuscular Volume 99.3 fL (80-100); RDW Coefficient of Variation 13.7 % (11.5-14.5); RDW Standard Deviation 49.2 fL (36.4-46.3); Red Blood Count 4.11 M/uL (4.2-5.4); White Blood Count 5.17 K/uL (4.8-10.8)
[2020-09-22 03:36] LABS: Mean Platelet Volume 10.1 fL (7.4-10.4); Platelet Count 82 K/uL (130-400)
[2020-09-22 03:39] LABS: Basophils # (auto) 0.01 K/uL (0-0.2); Basophils % (auto) 0.2 %; Eosinophils # (auto) 0.12 K/uL (0-0.5); Eosinophils % (auto) 2.3 %; Immature Granulocytes # (auto) 0.02 K/uL (0.00-0.02); Immature Granulocytes % (auto) 0.4 %; Lymphocytes # (auto) 2.05 K/uL (1.2-3.4); Lymphocytes % (auto) 39.7 %; Monocytes # (auto) 0.48 K/uL (0.11-0.59); Monocytes % (auto) 9.3 %; Neutrophils # (auto) 2.49 K/uL (1.4-6.5); Neutrophils % (auto) 48.1 %; Platelet Estimate Decreased (Normal); Tear Drop Cells 1+
[2020-09-22 04:22] LABS: Alanine Aminotransferase 50 U/L (12-78); Albumin Globulin Ratio 1.3 (0.9-2); Albumin Level 4.5 gm/dl (3.4-5.0); Alkaline Phosphatase 78 U/L (45-117); Aspartate Aminotransferase 35 U/L (15-37); BUN Creatinine Ratio 13.5 (10-20); Bilirubin,Total 1.5 mg/dl (0.2-1); Blood Urea Nitrogen 48 mg/dl (7-18); Calcium 9.4 mg/dl (8.5-10.1); Carbon Dioxide 22 mmol/L (21-32); Chloride 107 mmol/L (98-107); Creatinine Clr Calc Pharmacy 16.4 ml/min; Est GFR (African American) 14.4 ml/min; Est GFR (Non-African American) 12.4 ml/min; Globulin 3.5 gm/dl (2.5-4.0); Glucose 274 mg/dl (70-99); Magnesium 2.2 mg/dl (1.8-2.4); Potassium 6.3 mmol/L (3.5-5.1); Sodium 135 mmol/L (136-145); Troponin I < 0.015 ng/ml (0-0.045)
[2020-09-22] MEDS: LEVOTHYROXINE SODIUM 88 MCG TABLET PO SCH (05:47)
[2020-09-22 07:20] LABS: Estimated Average Glucose 126 mg/dl
--- NOTE | 2020-09-22 08:20 | Hospitalist Progress Note ---
Date of Service September 22, 2020 Assessment & Plan (1) Junctional bradycardia: Plan: The patient is a 70-year-old female with a past medical history of stage IV CKD, CAD, hepatic cirrhosis, DM 2, hypothyroidism, depression, asthma who reported not feeling well for the past several days. Routine laboratories in the outpatient setting showed a potassium of 6.2 and creatinine of 3.28, increased above her baseline. Junctional bradycardia - secondary to hyperkalemia--improving with management of potassium - Given Regular insulin 10 units x2, Kayexalate 30g x1, Calcium gluconate 1g IV x1 - Potassium on arrival at 6.3, recheck at 5.5 -Continue cardiac monitoring - Continue aspirin 81 mg daily, clopidogrel 75 mg daily, isosorbide mononitrate 100 mg daily, ranolazine 1000 mg p.o. twice daily. - Hold spironolactone, losartan and metoprolol succinate for now - Nephrology consulted--per phone convo with Dr. Whitehead - Likely hyperkalemia caused by losartan, spironolactone, and Bactrim in the setting of her kidney disease -Hold losartan for home, continue spironolactone - Recheck BMP in AM CKD IV - Creatinine 3.28 upon admission, with range 2.50-2.82 - Downtrending to 3.18 today - Continue sodium bicarbonate - Nephro consulted -- appreciate recs - BMP in AM Hypertension - Holding home metoprolol - Hold losartan as above - Plan to restart spironolactone at [place] Asthma - No acute exacerbation - Continue fluticasone/Vilanterol and leave albuterol nebulizer 3 times daily as needed GERD - Continue pantoprazole Diabetes Mellitus Type 2 with peripheral neuropathy - Accu-Cheks before meals and at bedtime with NovoLog coverage per scale - A1c of 6.0 - Received regular insulin x2 for hyperkalemia as above - Continue home gabapentin Hyperlipidemia - Continue home rosuvastatin Hypothyroidism - Continue home levothyroxine DVT prophylaxis: Heparin 5000U SQ q12H Diet: DM2, heart healthy Dispo: PCU/Telemetry CODE: FULL (2) 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 Huddleston. In agreement with the documented findings as noted in the resident documentation with any exceptions or additions as noted here. Resting comfortably in bed with improving tremulousness which still worsens with standing, decreased fatigue. On examination, S1/S2 nl, bradycardic, no MCG. CTAB. Abd NT/ND BS+ve Junctional bradycardia - improved HR throughout course of day with mgmt of potassium - continue DAPT, Imdur, ranolazine. Holding spironolactone, losartan, toprol CKDIV 2/2 arterionephrosclerosis with hyperkalemia - repeat dose of insulin/dextrose in AM. Nephrology consultation today. Trend K+ closely. IVF as noted. Asthma - no acute exacerbation, continue controller medications, albuterol nebulizer PRN Else see resident documentation as noted. Subjective Patient seen at bedside and reports feeling overall much better. She does report some shakiness still with getting up from bed but mentions the tremors in her hands are improving. Denies chest pain, palpitations, or any other systemic signs/symptoms. Review of Systems Review of Systems: All systems reviewed & are unremarkable except as noted in Subjective Physical Exam Physical Exam: The patient is awake, alert and oriented 3, well developed and well nourished, normocephalic and atraumatic, lying in bed and in no acute distress. HEENT--PERRL, EOMI, mucous membranes and oropharynx normal. Heart--normal S1 and S2. No murmurs, rubs or gallops. Lungs--clear bilaterally, no respiratory distress, no accessory muscle use. Extremities--no cyanosis or clubbing. No edema. Neurologic--cranial nerves II through XII grossly intact. Psychiatric--normal affect. Results & Data Results & Data ([facility]) Vital Signs (Past 12 Hours) Vital Signs Temp Pulse Pulse Pulse Resp BP BP 09/22/20 03:19 36.3 C L 51 L 24 148/75 H 09/22/20 02:47 56 L 22 09/21/20 23:43 49 L 08/12/21 23:19 36.4 C L 50 L 24 150/58 H 09/21/20 22:10 54 L 24 Pulse Ox 09/22/20 03:19 97 09/22/20 02:47 94 09/21/20 23:43 09/21/20 23:19 94 09/21/20 22:10 95 Resident Activity Tracking Resident Involvement: Resident Care Provided Care Provided: Adult Hospital Medicine
[2020-09-22] MEDS: ISOSORBIDE MONO EXTENDED REL 60 MG TABCR PO SCH (08:22)
[2020-09-22] MEDS: MONTELUKAST SODIUM 10 MG TABLET PO SCH (08:22)
[2020-09-22] MEDS: SODIUM BICARBONATE 650 MG TAB PO SCH (08:22)
[2020-09-22] MEDS: ROSUVASTATIN CALCIUM 20 MG TAB PO SCH (08:23)
[2020-09-22] MEDS: FAMOTIDINE 20 MG TAB PO SCH (08:23)
[2020-09-22] MEDS: SERTRALINE HCL 50 MG TABLET PO SCH (08:23)
[2020-09-22] MEDS: CLOPIDOGREL BISULFATE 75 MG TAB PO SCH (08:24)
[2020-09-22] MEDS: INSULIN ASPART 100 UNITS/ML 3 ML PEN SC SCH ×4 (08:24→20:26)
[2020-09-22] MEDS: CYANOCOBALAMIN 500 MCG TABLET (VITAMIN B-12) PO SCH (08:24)
[2020-09-22] MEDS: ASPIRIN 81 MG ECTAB PO SCH (08:25)
[2020-09-22] MEDS: CALCIUM 600MG + VIT D 400 IU TAB PO SCH (08:25)
[2020-09-22] MEDS: RANOLAZINE 500 MG ER TAB PO SCH ×2 (08:25→20:24)
[2020-09-22] MEDS: GABAPENTIN 100 MG CAP PO SCH ×2 (08:25→20:24)
[2020-09-22] MEDS: IPRATROPIUM BROMIDE NASAL SPRAY 0.06% 15ML SCH ×4 (08:26→20:24)
[2020-09-22] MEDS: FLUTICASONE/VILANTEROL 200/25MCG 14 PUFFS/INHALER INH SCH (08:26)
[2020-09-22] MEDS: UMECLIDINIUM BROMIDE 62.5MCG/BLISTER 7 PUFFS/INHALER INH SCH (08:26)
[2020-09-22] MEDS: CALCITRIOL 0.25 MCG CAPSULE PO SCH (08:27)
[2020-09-22] MEDS ORDERED: CHOLECALCIFEROL 1,000 UNITS 25 MCG TAB PO SCH (09:00)
[2020-09-22 11:06] LABS: BUN Creatinine Ratio 14.5 (10-20); Calcium 9.1 mg/dl (8.5-10.1); Creatinine Clr Calc Pharmacy 17.6 ml/min; Est GFR (African American) 15.8 ml/min; Est GFR (Non-African American) 13.7 ml/min; Potassium 5.5 mmol/L (3.5-5.1)
[2020-09-22] MEDS ORDERED: DEXTROSE 50% 50 ML SYRINGE IV ONE (11:20)
[2020-09-22] MEDS ORDERED: INSULIN HUMAN REGULAR PER UNIT 10 UNITS in SYRINGE 9.9 ML IV ONE (11:25)
[2020-09-22] MEDS: SODIUM CHLORIDE 0.9% 1000ML 1,000 ML IV SCH ×2 (11:44→22:48)
[2020-09-22 15:35] LABS: BUN Creatinine Ratio 14.4 (10-20); Calcium 8.9 mg/dl (8.5-10.1); Creatinine Clr Calc Pharmacy 18.1 ml/min; Est GFR (African American) 16.4 ml/min; Est GFR (Non-African American) 14.2 ml/min; Potassium 5.9 mmol/L (3.5-5.1)
[2020-09-22] MEDS ORDERED: FUROSEMIDE 40 MG in SYRINGE 0 ML IV STA (18:48)
[2020-09-22] MEDS ORDERED: FUROSEMIDE 60 MG in SYRINGE 0 ML IV STA (18:51)
[2020-09-22] MEDS ORDERED: PATIROMER CALCIUM SORBITEX 8.4 GM PACK PO ONE (19:00)
--- NOTE | 2020-09-22 19:00 | Nephrology Consultation ---
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 Urine cx + for E. Coli * Patient lists Quinolone drug allergy * Will Rx Amoxicillin-Clavulanate 500 mg po daily x 5 days History of Present Illness Reason for Consultation: Hyperkalemia, ASHOK/CKD Attending Physician: Dwain Jama MD History of Present Illness Mrs. Kaur is a 70 year old white female who is seen at the request of [facility] Hospitalist Service for evaluation of hyperkalemia, ASHOK/CKD. Medical records in the EMR were reviewed today and are summarized as follows: Mrs. Kaur has stage IV CKD w/ baseline Cr 2.7 (EGFR 20 cc/min) attributed to microvascular disease, IDDM (no retinopathy or proteinuria), difficult to control HTN, cirrho sis, KEREN, ASCVD s/p CABG 1999. Her antihypertensive regimen has consisted to Losartan, Spironolactone, Isosorbide and Metoprolol. Recently she was diagnosed w/ cystitis and was prescribed a 7 day course of Bactrim. Mrs. Kaur presented to the EMD yesterday evening w/ c/o weakness. Evaluation revealed K 6.3, HR 48, ECG without [place] prolongation or peaked T-waves. Upon admission Bactrim, Spirono lactone and Losartan were held. IVF was provided and 30 g Kayexelate administered. Mrs. Kaur reports diarrhea in response to the medication. Serum potassium has improved to 5.9. Cr is now mildly elevated at 3.2 Allergies Allergy/AdvReac Type Severity Reaction Status Date / Time levofloxacin Allergy Intermediate rash Verified 09/21/20 14:00 enalapril Allergy Unknown DRY COUGH Verified 09/21/20 14:00 insulin detemir Allergy Unknown HIVES Verified 09/21/20 14:00 enalaprilat [From Vasotec] Allergy Unknown Verified 09/21/20 14:00 Home Medications Medication Instructions Recorded Confirmed Type calcium carbonate 600 mg(1,500 1 tab PO QAM 08/27/18 09/21/20 History mg)-vitamin D3 800 unit chewable tablet (Caltrate 600 plus D) fexofenadine 180 mg tablet 180 mg PO DAILY PRN 08/27/18 09/21/20 History (Chelsie Allergy) ipratropium bromide 21 mcg (0.03 1 spray INTRANASAL ACHS 08/27/18 09/21/20 History %) nasal spray olopatadine 0.1 % eye drops 1 drp OPHTHALMIC (EYE) BID PRN 08/27/18 09/21/20 History tiotropium bromide 18 mcg capsule 1 cap INHALATION DAILY 08/27/18 09/21/20 History with inhalation device (Spiriva with HandiHaler) aspirin 81 mg tablet,delayed 81 mg PO DAILY 09/04/18 09/21/20 History release (Adult Aspirin Regimen) tramadol 50 mg tablet 50 mg PO Q6H PRN #60 tab 09/04/18 09/21/20 Rx levalbuterol HCl 1.25 mg/3 mL 1.25 mg INHALATION TID PRN #36 ml 03/02/19 09/21/20 Rx solution for nebulization blood sugar diagnostic (FreeStyle ea 03/15/19 08/24/20 History Test) cyanocobalamin (vitamin B-12) 500 1,000 mcg PO DAILY #30 tab 05/09/19 09/21/20 Rx mcg tablet albuterol sulfate 90 mcg/actuation 2 puff INHALATION Q4 PRN #18 gm 06/23/19 09/21/20 Rx aerosol inhaler (Ventolin HFA) fluticasone furoate 200 1 puffs INH DAILY #1 inhaler 06/23/19 09/21/20 Rx mcg-vilanterol 25 mcg/dose inhalation powder (Breo Ellipta) isosorbide mononitrate 120 mg 180 mg PO DAILY #135 tab 09/27/19 09/21/20 Rx tablet,extended release 24 hr spironolactone 100 mg tablet 100 mg PO DAILY #90 tab 10/13/19 09/21/20 Rx cholecalciferol (vitamin D3) 25 25 mcg PO DAILY #90 tab 11/22/19 09/21/20 Rx mcg (1,000 unit) tablet Omnipod Insulin Refill (insulin #180 ea NS 01/19/20 08/24/20 Rx pump cartridge) ofloxacin 0.3 % eye drops 5 drp OPHTHALMIC (EYE) BID PRN #10 02/15/20 09/21/20 Rx ml metoprolol succinate 50 mg 75 mg PO BID #270 tab 02/24/20 09/21/20 Rx tablet,extended release 24 hr clopidogrel 75 mg tablet 75 mg PO DAILY #90 tab 04/05/20 09/21/20 Rx ranolazine 1,000 mg 1,000 mg PO BID #180 tab 04/18/20 09/21/20 Rx tablet,extended release,12 hr montelukast 10 mg tablet 10 mg PO DAILY #90 tab 05/03/20 09/21/20 Rx (Singulair) losartan 25 mg tablet 25 mg PO DAILY #90 tab 07/11/20 09/21/20 Rx gabapentin 100 mg capsule 100 mg PO BID #180 cap 07/17/20 09/21/20 Rx rosuvastatin 40 mg tablet 40 mg PO DAILY #90 tab 07/18/20 09/21/20 Rx trazodone 50 mg tablet 50 mg PO HS #90 tab 08/08/20 09/21/20 Rx Omnipod Dash 5 Pack Pod (insulin #90 ea NS 08/16/20 08/24/20 Rx pump cartridge) famotidine 20 mg tablet 20 mg PO DAILY #90 tab 09/07/20 09/21/20 Rx sertraline 100 mg tablet 150 mg PO DAILY 90 Days #135 tab 09/12/20 09/21/20 Rx sulfamethoxazole 800 1 tab PO BID 7 Days #14 tab 09/18/20 09/21/20 Rx mg-trimethoprim 160 mg tablet (Bactrim DS) sodium bicarbonate 650 mg tablet 650 mg PO DAILY #90 tab 09/19/20 09/21/20 Rx calcitriol 0.25 mcg capsule 0.25 mcg PO 3XWK 09/21/20 09/21/20 History insulin aspart U-100 100 unit/mL 230 unit SUBCUT DIRECTED 09/21/20 09/21/20 History subcutaneous solution (Novolog U-100 Insulin aspart) levothyroxine 88 mcg tablet 88 mcg PO QAM 09/21/20 09/21/20 History pantoprazole 40 mg tablet,delayed 40 mg PO QAM 09/21/20 09/21/20 History release Patient History Medical History Acute kidney injury Antiplatelet or antithrombotic long-term use Asymptomatic carotid artery stenosis Bilateral carotid artery disease CAD (coronary artery disease) Cerebral arterial aneurysm Chest pain due to CAD Chronic reflux esophagitis Controlled type 2 diabetes mellitus with kidney complication, with long-term current use of insulin Diabetic peripheral neuropathy Dysesthesia ETD (eustachian tube dysfunction) Frequency of urination Gastroparesis Hepatic cirrhosis History of anemia History of ASCVD History of asthma History of depression Hypercholesterolemia Hypertension Hypokalemia Hypothyroidism Intestinal metaplasia of gastric mucosa Irritable bowel syndrome Metabolic acidosis KEREN (obstructive sleep apnea) Painful urination Pulmonary emphysema 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 Stage III chronic kidney disease Surgical History H/O: hysterectomy History of cardiac catheterization History of knee replacement Hx of CABG (~2009) Hx of cataract surgery Hx of colonoscopy (~2013) S/P nasal surgery Status post breast reduction Family History Mother Carotid artery stenosis Breast cancer Heart failure Myocardial infarction Brother Carotid artery stenosis Peripheral vascular disease Stroke syndrome Hx of CABG Sinusitis Asthma Myocardial infarction Environmental allergies Sister Brain cancer Grandmother Myocardial infarction Denies family history of Ovarian cancer Prostate cancer Crohn's disease Bleeding disorder Colorectal cancer Ulcerative colitis Social History Smoking Status: Never smoker Second Hand Exposure: Yes; Hx Alcohol Use: Yes Alcohol type: wine Alcohol Intake Frequency Comment: rare Hx Substance Use: No Preferred Language: [place] Communication Ability: Effective Visual Impairment: No Limitations Hearing Ability: Normal 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: No Beliefs That Will Affect Care: None marital status: Current Living Situation: Spouse 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 How many Children do You have: 1 Other Information That Helps Us Care for You: No Feels Safe at Home: Yes Safety Concerns: Feels Safe At This Time Childhood Exposure to Second-Hand Smoke: Yes Dental Care, Regularly: Yes Physical Activity Frequency: Does not Exercise Seatbelt Use: always Sunscreen Use: Yes Assistive Devices: Oxygen - Continuous Review of Systems Constitutional: + weakness; no fever Eyes: no problem reported Ear, Nose, Mouth, Throat: no problem reported Respiratory: no cough and no dyspnea Cardiovascular: no chest pain, no palpitations and no edema Gastrointestinal: + diarrhea/loose stools (related to Kayexelate administration); no abdominal pain Genitourinary: no dysuria and no hematuria Musculoskeletal: no back pain Integumentary: no rash Neurologic: no falls, no dizziness and no confusion Physical Exam Constitutional: not in distress Eyes: PERRL, conjunctivae normal, anicteric sclerae ENMT: external ear and nose normal, oropharynx normal Neck: trachea midline, no thyromegaly Respiratory: normal respiratory effort, lungs clear to auscultation Cardiovascular: RRR, no murmur, no edema Gastrointestinal (Abdomen): normal bowel sounds, soft, nontender, no hepatosplenomegaly Musculoskeletal: Extremities: no cyanosis Skin: no rashes, warm and dry Neurologic: awake; not confused Results & Data ([facility]) Vital Signs (Past 12 Hours) Vital Signs Temp Pulse Resp BP BP Pulse Ox 09/22/20 16:00 36.5 C 65 18 149/62 H 09/22/20 11:57 36.8 C 78 16 151/70 H 96 09/22/20 08:06 36.8 C 52 L 18 173/67 H 93 Laboratory Results Laboratory Tests 09/22/20 09/22/20 03:08 03:08 WBC 5.17 Hgb 13.3 Hct 40.8 Plt Count 82 L Sodium 135 L Potassium 6.3 H* Chloride 107 Carbon Dioxide 22 BUN 48 H Creatinine 3.55 H PG Care Time/CCT Total # of Minutes Spent Total Time Spent with Patient: Total time spent is greater than 50% in coordination of care (as documented) at patient's floor/unit and/or counseling patient: Coding Level of Care Code 29200 Inpt Consult Level 5 Diagnoses Acute hyperkalemia E87.5 Acute kidney injury superimposed on chronic kidney disease N17.9; N18.9 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
[2020-09-22] MEDS: traZODone HCL 50 MG TAB PO SCH (20:24)
[2020-09-22] MEDS: HEPARIN SOD 5,000 UNIT/0.5 ML VIAL SQ SCH (22:48)
[2020-09-22 23:33] LABS: BUN Creatinine Ratio 15.4 (10-20); Calcium 9.5 mg/dl (8.5-10.1); Creatinine Clr Calc Pharmacy 18.5 ml/min; Est GFR (African American) 16.8 ml/min; Est GFR (Non-African American) 14.5 ml/min; Potassium 4.9 mmol/L (3.5-5.1)
[2020-09-23] MEDS: LEVOTHYROXINE SODIUM 88 MCG TABLET PO SCH (05:29)
[2020-09-23 06:37] LABS: Hematocrit (blood only) 36.4 % (37-47); Hemoglobin 11.7 g/dL (12.0-16.0); Mean Corpuscular Hemoglobin 31.5 pg (25-34); Mean Corpuscular Hgb Conc 32.1 g/dL (32-36); Mean Corpuscular Volume 97.8 fL (80-100); RDW Coefficient of Variation 13.4 % (11.5-14.5); RDW Standard Deviation 47.9 fL (36.4-46.3); Red Blood Count 3.72 M/uL (4.2-5.4); White Blood Count 2.29 K/uL (4.8-10.8)
[2020-09-23 06:41] LABS: Mean Platelet Volume 10.2 fL (7.4-10.4); Platelet Count 55 K/uL (130-400)
--- NOTE | 2020-09-23 06:47 | Hospitalist Progress Note ---
Date of Service September 23, 2020 Assessment & Plan (1) Junctional bradycardia: Plan: 70-year-old female with a past medical history of stage IV CKD, CAD, hepatic cirrhosis, DM 2, hypothyroidism, depression, asthma who reported not feeling well for the past several days. Routine laboratories in the outpatient setting showed a potassium of 6.2 and creatinine of 3.28, increased above her baseline. Junctional bradycardia, hyperkalemia - Secondary to hyperkalemia - improving with management of potassium - Potassium on arrival at 6.3, recheck at 5.5 - Given insulin 10 units x2, kayexalate 30g x1, calcium gluconate 1g IV x1 - Continue cardiac monitoring - Continue aspirin, clopidogrel, isosorbide mononitrate, ranolazine - Nephrology consulted -Likely hyperkalemia caused by losartan, spironolactone, and bactrim in the setting of kidney disease -Hold losartan, spironolactone, bactrim - Recheck BMP in AM CKD IV - Creatinine 3.28 upon admission, baseline 2.50-2.82 - Improved to 3.18 (09/23) - Continue sodium bicarbonate - Nephro recommendations above - BMP in AM Hypertension - Holding home metoprolol - Hold losartan as above - Plan to restart spironolactone at DC Asthma - No acute exacerbation - Continue fluticasone/Vilanterol and leave albuterol nebulizer 3 times daily as needed GERD - Continue pantoprazole Diabetes Mellitus Type 2 with peripheral neuropathy - Accu-Cheks before meals and at bedtime with NovoLog coverage per scale - A1c of 6.0 - Received regular insulin x2 for hyperkalemia as above - Continue home gabapentin Hyperlipidemia - Continue home rosuvastatin Hypothyroidism - Continue home levothyroxine DVT prophylaxis: Heparin 5000U SQ q12H Diet: DM2, heart healthy Dispo: PCU/Telemetry CODE: FULL (2) 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 No acute events overnight. Patient feels well this morning and has no acute complaints. Patient denies CP, SOB, abdominal pain, nausea, vomiting, dizziness, and diarrhea. Review of Systems Review of Systems: See HPI Physical Exam Physical Exam: Constitutional: well-appearing, no acute distress HEENT: NCAT, no conjunctival injection CV: regular rhythm, no murmur appreciated, extremities well-perfused, no LE edema Resp: CTABL, no wheezes/rales/rhonchi appreciated, no increased work of breathing Neuro: AOx4, no focal neurological deficits appreciated Results & Data Results & Data ([facility]) Vital Signs (Past 12 Hours) Vital Signs Temp Pulse Pulse Resp BP BP Pulse Ox 09/23/20 03:19 36.5 C 72 18 182/80 H 93 09/23/20 00:00 36.4 C L 78 68 18 117/76 97 09/22/20 21:00 60 22 94 09/22/20 19:08 37.1 C 67 20 160/76 H 95 Resident Activity Tracking Resident Involvement: Resident Care Provided Care Provided: Adult Hospital Medicine
[2020-09-23 06:53] LABS: Basophils # (auto) 0.01 K/uL (0-0.2); Basophils % (auto) 0.4 %; Eosinophils # (auto) 0.06 K/uL (0-0.5); Eosinophils % (auto) 2.6 %; Immature Granulocytes # (auto) 0.01 K/uL (0.00-0.02); Immature Granulocytes % (auto) 0.4 %; Lymphocytes # (auto) 1.01 K/uL (1.2-3.4); Lymphocytes % (auto) 44.1 %; Monocytes % (auto) 8.7 %; Neutrophils % (auto) 43.8 %
[2020-09-23 07:17] LABS: BUN Creatinine Ratio 14.7 (10-20); Calcium 9.4 mg/dl (8.5-10.1); Creatinine Clr Calc Pharmacy 18.1 ml/min; Est GFR (African American) 16.4 ml/min; Est GFR (Non-African American) 14.2 ml/min; Magnesium 2.1 mg/dl (1.8-2.4); Potassium 5.1 mmol/L (3.5-5.1)
[2020-09-23] MEDS: MONTELUKAST SODIUM 10 MG TABLET PO SCH (08:30)
[2020-09-23] MEDS: ROSUVASTATIN CALCIUM 20 MG TAB PO SCH (08:30)
[2020-09-23] MEDS: CALCIUM 600MG + VIT D 400 IU TAB PO SCH (08:30)
[2020-09-23] MEDS: ASPIRIN 81 MG ECTAB PO SCH (08:30)
[2020-09-23] MEDS: CLOPIDOGREL BISULFATE 75 MG TAB PO SCH (08:31)
[2020-09-23] MEDS: SODIUM BICARBONATE 650 MG TAB PO SCH (08:31)
[2020-09-23] MEDS: FAMOTIDINE 20 MG TAB PO SCH (08:31)
[2020-09-23] MEDS: ISOSORBIDE MONO EXTENDED REL 60 MG TABCR PO SCH (08:31)
[2020-09-23] MEDS: CYANOCOBALAMIN 500 MCG TABLET (VITAMIN B-12) PO SCH (08:32)
[2020-09-23] MEDS: PANTOprazole 40 MG TAB PO SCH (08:32)
[2020-09-23] MEDS: AMOXICILLIN/CLAVULANATE 250 MG TAB PO SCH ×2 (08:32→20:26)
[2020-09-23] MEDS: SERTRALINE HCL 50 MG TABLET PO SCH (08:32)
[2020-09-23] MEDS: RANOLAZINE 500 MG ER TAB PO SCH ×2 (08:33→20:26)
[2020-09-23] MEDS: FLUTICASONE/VILANTEROL 200/25MCG 14 PUFFS/INHALER INH SCH (08:33)
[2020-09-23] MEDS: GABAPENTIN 100 MG CAP PO SCH ×2 (08:33→20:26)
[2020-09-23] MEDS: IPRATROPIUM BROMIDE NASAL SPRAY 0.06% 15ML SCH ×4 (08:33→20:25)
[2020-09-23] MEDS: UMECLIDINIUM BROMIDE 62.5MCG/BLISTER 7 PUFFS/INHALER INH SCH (08:34)
[2020-09-23] MEDS: CHOLECALCIFEROL 1,000 UNITS 25 MCG TAB PO SCH (08:50)
[2020-09-23] MEDS: INSULIN ASPART 100 UNITS/ML 3 ML PEN SC SCH ×4 (08:50→20:26)
[2020-09-23] MEDS ORDERED: AMOXICILLIN/CLAVULANATE 500 MG TAB PO SCH (09:00)
[2020-09-23] MEDS: HEPARIN SOD 5,000 UNIT/0.5 ML VIAL SQ SCH ×2 (10:12→20:26)
[2020-09-23] MEDS ORDERED: PHARMACY GLYCEMIC MGMT CONSULT PRN (11:57)
[2020-09-23] MEDS: SODIUM CHLORIDE 0.9% 1000ML 1,000 ML IV SCH (12:11)
--- NOTE | 2020-09-23 12:40 | Nephrology Progress Note ---
Date of Service September 23, 2020 Assessment & Plan (1) Acute kidney injury superimposed on chronic kidney disease: (2) Acute hyperkalemia: (3) Bradycardia: (4) Metabolic acidosis: (5) CAD (coronary artery disease): (6) Cystitis: (7) Secondary hyperparathyroidism of renal origin: Plan: Karley was admitted to the hospital with ASHOK and hyperkalemia after she was noted to have high potassium on labs at [facility] where she was getting iron infusions. She reports getting Bactrim for recent UTI for last few days prior to admission. She was also on lisinopril and spironolactone with underlying CKD and coronary artery disease. Potassium was 6.3 which improved and has been staying around 5. 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 Has trace proteinuria. She the has been reluctant to get AVF as renal function has been relatively stable with prior history of repeated adverse reaction to anesthesia. Overall she has been feeling well, voiding normally, volume status acceptable. Creatinine has been staying around 3.2-3.3 last few days. Lasix, lisinopril, spironolactone has been on hold. metoprolol has been on hold because of bradycardia. -- start on amlodipine 5 mg p.o. daily and increase dose as needed, continue to hold lisinopril and spironolactone. Consider restarting on low-dose metoprolol with history of coronary artery disease. -- monitor renal function electrolyte, if renal function stays relatively stable, clinically she otherwise feels well, can be discharged in next 1-2 days with close outpatient lab monitoring weekly and follow-up in CKD clinic in 2 weeks Will follow Admission and Anticipated Discharge Date Admission Date: September 21, 2020 Subjective Nat overall feels well this morning, denies any specific symptom of shortness of breath or chest pain. appetite has been decent. Renal function staying relatively stable, creatinine around 3.2-3.3, hyperkalemia resolved. Blood pressure has been running high off of most of her antihypertensive medications. Review of Systems Review of Systems: Detailed review of system otherwise unremarkable. Physical Exam Constitutional: well developed and well nourished; no acute distress Respiratory: normal respiratory effort, lungs clear to auscultation Cardiovascular: RRR, no murmur, no edema Neurologic: moves all extremities and awake; not confused Psychiatric: A+Ox3, euthymic affect Results & Data ([facility]) Vital Signs (Past 12 Hours) Vital Signs Temp Pulse Pulse Resp BP Pulse Ox 09/23/20 08:00 70 09/23/20 07:17 36.5 C 69 18 177/78 H 97 09/23/20 03:19 36.5 C 72 18 182/80 H 93 PG Care Time/CCT Total # of Minutes Spent Total Time Spent with Patient: Total time spent is greater than 50% in coordination of care (as documented) at patient's floor/unit and/or counseling patient: Coding Level of Care Code 27647 Subseq Hosp Care Lvl 3 Diagnoses Acute kidney injury superimposed on chronic kidney disease N17.9; N18.9 Acute hyperkalemia E87.5 Bradycardia R00.1 Metabolic acidosis E87.2 CAD (coronary artery disease) I25.10 Cystitis N30.90 Secondary hyperparathyroidism of renal origin N25.81
[2020-09-23] MEDS ORDERED: INSULIN GLARGINE SOLOSTAR 100 UNITS/ML 3 ML PEN SC ONE (13:00)
[2020-09-23] MEDS: amLODIPine BESYLATE 5 MG TAB PO SCH (14:15)
--- NOTE | 2020-09-23 15:29 | Pharmacy Report ---
Pharmacy Glycemic Short Note 2 - Date of Service September 23, 2020 - Glycemic Short BSG Results (Last 24 hours): 09/22/20 09/22/20 09/22/20 14:36 16:33 20:01 Glucose 209 H POC Glucose 206 H 246 H 09/22/20 09/23/20 09/23/20 22:30 05:56 07:16 Glucose 222 H 271 H POC Glucose 267 H 09/23/20 11:05 Glucose POC Glucose 306 H* OUTPATIENT ANTIDIABETIC REGIMEN: * NovoLog insulin via pump - up to 250 units/day * A1c = 6% on 09/22/20 ASSESSMENT: * 70yo T2DM female maintained on high dose insulin as an outpatient adequate control per A1c (although this result may be somewhat unreliable secondary to CKD and altered RBC turnover rate) * Outpatient insulin pump held on admission and SQ insulin initiated - however, only bolus insulin per CF/CR started (no basal insulin). Pt is only on NovoLog as an outpatient but this is delivered via continuous infusion on pump and serves as both basal and prandial insulin (because patient manually boluses for meals). Long acting basal insulin will be needed inpatient when NovoLog is being given Q6hrs/ACHS * Will start with weight based insulin dosing since typically patients on high dose insulin as an outpatient require much less inpatient due to controlled CHO intake. Titrate based on BSG rends to maintain BSGs 110-140 PLAN FOR INPATIENT GLYCEMIC CONTROL: * START Basal insulin * Lantus 32 units (0.33 units/kg) SQ x 1 dose now * Will try to keep basal insulin once daily for easy transition back to pump at [place]. * Bolus insulin: tighten CF/CR * NovoLog per scale ACHS or Q6hrs while NPO * Goal Range: Low 110 mg/dL - High 140 mg/dL * Correction Factor: 15 mg/dL/unit * Nutritional / Prandial insulin per carb ratio of 1 unit per 6 grams CHO consumed PLAN FOR DISCHARGE: * A1c is in goal range. No changes needed unless patient is experiencing hypo as an outpatient.
[2020-09-23] MEDS: traZODone HCL 50 MG TAB PO SCH (20:26)
[2020-09-24] MEDS: SODIUM CHLORIDE 0.9% 1000ML 1,000 ML IV SCH ×2 (00:47→13:09)
[2020-09-24] MEDS: INSULIN ASPART 100 UNITS/ML 3 ML PEN SC SCH ×6 (00:51→20:33)
[2020-09-24] MEDS: LEVOTHYROXINE SODIUM 88 MCG TABLET PO SCH (05:50)
--- NOTE | 2020-09-24 06:40 | Hospitalist Progress Note ---
Date of Service September 24, 2020 Assessment & Plan (1) Junctional bradycardia: Plan: 70-year-old female with a past medical history of stage IV CKD, CAD, hepatic cirrhosis, DM 2, hypothyroidism, depression, asthma who reported not feeling well for the past several days. Routine laboratories in the outpatient setting showed a potassium of 6.2 and creatinine of 3.28, increased above her baseline. Junctional bradycardia, hyperkalemia - Secondary to hyperkalemia - improving with management of potassium - Potassium on arrival at 6.3, recheck at 5.5 - Given insulin 10 units x2, kayexalate 30g x1, calcium gluconate 1g IV x1 - Continue cardiac monitoring - Continue aspirin, clopidogrel, isosorbide mononitrate, ranolazine - Nephrology consulted -Likely hyperkalemia caused by losartan, spironolactone, and bactrim in the setting of kidney disease -Hold losartan, spironolactone, bactrim - Recheck BMP in AM CKD4 - Creatinine 3.28 upon admission, baseline 2.50-2.82 - Improved to 3.18 (09/23) - Continue sodium bicarbonate - Nephro recommendations above - BMP in AM Hypertension - Per nephrology, starting amlodipine 10mg daily and restarting metoprolol 25mg daily - Hold losartan as above - Plan to restart spironolactone at DC Asthma - No acute exacerbation - Continue fluticasone/Vilanterol and leave albuterol nebulizer 3 times daily as needed GERD - Continue pantoprazole DM2 with peripheral neuropathy - Accu-Cheks before meals and at bedtime with NovoLog coverage per scale - A1c of 6.0 - Received regular insulin x2 for hyperkalemia as above - Continue home gabapentin Hyperlipidemia - Continue home rosuvastatin Hypothyroidism - Continue home levothyroxine DVT prophylaxis: heparin 5000U SQ q12h Diet: DM2, heart healthy Dispo: PCU/Telemetry CODE: FULL Admission and Anticipated Discharge Date Admission Date: September 21, 2020 Supervising Physician Co-Signing Physician Notes Attending attestation Pt seen and examined in concert with Dr. Almanza. In agreement with the documented findings as noted in the resident documentation with any exceptions or additions as noted here. 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 Fatigue has also continued to yousuf. Spouse (Keny) at bedside with questions re: medication impacts and concern for understanding discharge medications, reviewed documentation and discharge information. On examination, S1/S2 nl, bradycardic, no MCG. CTAB. Abd NT/ND BS+ve. Ongoing positional tremor of the b/l UE grossly improved from previous. Neutropenia - likely combination of dilutional effects and ?Bactrim DS impact - precautions, trend Hypertension - newly increased BP - restart metoprolol, holding losartan. Continue Imdur, ranolazine. Junctional bradycardia - resolved - continue DAPT CKDIV 2/2 arterionephrosclerosis with hyperkalemia - Nephrology consult. Monitor BMP. IVF per nephrology. Asthma - no acute exacerbation, continue controller medications, albuterol nebulizer PRN Else see resident documentation as noted. Subjective Patient seen and evaluated at bedside this morning. No acute events overnight. Patient feels well today and has no acute complaints. Patient denies CP, SOB, abdominal pain, nausea, vomiting, lightheadedness, dizziness, and diarrhea. Review of Systems Review of Systems: See HPI Physical Exam Physical Exam: Constitutional: well-appearing, no acute distress HEENT: NCAT, no conjunctival injection CV: regular rhythm, no murmur appreciated, extremities well-perfused, no LE edema Resp: CTABL, no wheezes/rales/rhonchi appreciated, no increased work of breathing Neuro: AOx4, no focal neurological deficits appreciated Results & Data Results & Data ([facility]) Vital Signs (Past 12 Hours) Vital Signs Temp Pulse Pulse Resp BP BP Pulse Ox 09/24/20 03:05 36.7 C 73 16 179/78 H 173/83 H 97 09/24/20 02:58 70 17 93 09/24/20 00:00 77 09/23/20 23:11 36.3 C L 75 20 181/83 H 95 09/23/20 22:15 79 19 94 09/23/20 19:09 36.9 C 82 20 184/94 H 97 Resident Activity Tracking Resident Involvement: Resident Care Provided Care Provided: Adult Hospital Medicine
[2020-09-24 06:46] LABS: Hematocrit (blood only) 34.2 % (37-47); Hemoglobin 11.2 g/dL (12.0-16.0); Mean Corpuscular Hemoglobin 31.6 pg (25-34); Mean Corpuscular Hgb Conc 32.7 g/dL (32-36); Mean Corpuscular Volume 96.6 fL (80-100); RDW Coefficient of Variation 13.2 % (11.5-14.5); RDW Standard Deviation 46.3 fL (36.4-46.3); Red Blood Count 3.54 M/uL (4.2-5.4); White Blood Count 1.72 K/uL (4.8-10.8)
[2020-09-24 07:04] LABS: Mean Platelet Volume 9.1 fL (7.4-10.4); Platelet Count 41 K/uL (130-400)
[2020-09-24 07:08] LABS: Basophils # (auto) 0.01 K/uL (0-0.2); Basophils % (auto) 0.6 %; Eosinophils # (auto) 0.04 K/uL (0-0.5); Eosinophils % (auto) 2.3 %; Immature Granulocytes # (auto) 0.01 K/uL (0.00-0.02); Immature Granulocytes % (auto) 0.6 %; Lymphocytes # (auto) 0.91 K/uL (1.2-3.4); Lymphocytes % (auto) 52.9 %; Monocytes # (auto) 0.13 K/uL (0.11-0.59); Monocytes % (auto) 7.6 %; Neutrophils # (auto) 0.62 K/uL (1.4-6.5)
[2020-09-24 07:20] LABS: BUN Creatinine Ratio 14.6 (10-20); Calcium 8.7 mg/dl (8.5-10.1); Creatinine Clr Calc Pharmacy 20.6 ml/min; Est GFR (African American) 19.3 ml/min; Est GFR (Non-African American) 16.6 ml/min; Magnesium 2.1 mg/dl (1.8-2.4); Potassium 4.9 mmol/L (3.5-5.1)
[2020-09-24] MEDS: MONTELUKAST SODIUM 10 MG TABLET PO SCH (08:24)
[2020-09-24] MEDS: CALCIUM 600MG + VIT D 400 IU TAB PO SCH (08:24)
[2020-09-24] MEDS: CYANOCOBALAMIN 500 MCG TABLET (VITAMIN B-12) PO SCH (08:24)
[2020-09-24] MEDS: FAMOTIDINE 20 MG TAB PO SCH (08:25)
[2020-09-24] MEDS: SERTRALINE HCL 50 MG TABLET PO SCH (08:25)
[2020-09-24] MEDS: FEXOFENADINE HCL 180 MG TAB PO PRN (08:25)
[2020-09-24] MEDS: SODIUM BICARBONATE 650 MG TAB PO SCH (08:25)
[2020-09-24] MEDS: ROSUVASTATIN CALCIUM 20 MG TAB PO SCH (08:25)
[2020-09-24] MEDS: HEPARIN SOD 5,000 UNIT/0.5 ML VIAL SQ SCH ×2 (08:26→20:26)
[2020-09-24] MEDS: RANOLAZINE 500 MG ER TAB PO SCH ×2 (08:26→20:26)
[2020-09-24] MEDS: CLOPIDOGREL BISULFATE 75 MG TAB PO SCH (08:26)
[2020-09-24] MEDS: amLODIPine BESYLATE 5 MG TAB PO SCH (08:26)
[2020-09-24] MEDS: PANTOprazole 40 MG TAB PO SCH (08:26)
[2020-09-24] MEDS: CHOLECALCIFEROL 1,000 UNITS 25 MCG TAB PO SCH (08:26)
[2020-09-24] MEDS: GABAPENTIN 100 MG CAP PO SCH ×2 (08:26→20:25)
[2020-09-24] MEDS: ISOSORBIDE MONO EXTENDED REL 60 MG TABCR PO SCH (08:26)
[2020-09-24] MEDS: ASPIRIN 81 MG ECTAB PO SCH (08:26)
[2020-09-24] MEDS: AMOXICILLIN/CLAVULANATE 250 MG TAB PO SCH ×2 (08:27→20:28)
[2020-09-24] MEDS: FLUTICASONE/VILANTEROL 200/25MCG 14 PUFFS/INHALER INH SCH (08:27)
[2020-09-24] MEDS: UMECLIDINIUM BROMIDE 62.5MCG/BLISTER 7 PUFFS/INHALER INH SCH (08:27)
[2020-09-24] MEDS: INSULIN GLARGINE SOLOSTAR 100 UNITS/ML 3 ML PEN SC SCH (08:28)
[2020-09-24] MEDS: IPRATROPIUM BROMIDE NASAL SPRAY 0.06% 15ML SCH ×4 (08:29→20:34)
[2020-09-24] MEDS ORDERED: amLODIPine BESYLATE 5 MG TAB PO ONE (09:30)
--- NOTE | 2020-09-24 09:36 | Pharmacy Report ---
Pharmacy Glycemic Short Note 2 - Date of Service September 24, 2020 - Glycemic Short BSG Results (Last 24 hours): 09/23/20 09/23/20 09/23/20 11:05 16:07 19:55 Glucose POC Glucose 306 H* 317 H* 224 H 09/24/20 09/24/20 09/24/20 00:50 04:13 06:29 Glucose 197 H POC Glucose 126 H 176 H 09/24/20 07:41 Glucose POC Glucose 207 H OUTPATIENT ANTIDIABETIC REGIMEN: * NovoLog insulin via pump - up to 250 units/day * A1c = 6% on 09/22/20 ASSESSMENT: 09/24 * Pt has received 78 units of insulin over the past 24hrs * 32 units of basal with Lantus * 46 units of bolus with NovoLog * BSGs trending downwards after the addition of basal insulin yesterday. However, BSGs all still above goal range. Will increase Lantus and tighten CF/R. 09/23 * 70yo T2DM female maintained on high dose insulin as an outpatient adequate control per A1c (although this result may be somewhat unreliable secondary to CKD and altered RBC turnover rate) * Outpatient insulin pump held on admission and SQ insulin initiated - however, only bolus insulin per CF/CR started (no basal insulin). Pt is only on NovoLog as an outpatient but this is delivered via continuous infusion on pump and serves as both basal and prandial insulin (because patient manually boluses for meals). Long acting basal insulin will be needed inpatient when NovoLog is being given Q6hrs/ACHS * Will start with weight based insulin dosing since typically patients on high dose insulin as an outpatient require much less inpatient due to controlled CHO intake. Titrate based on BSG rends to maintain BSGs 110-140 PLAN FOR INPATIENT GLYCEMIC CONTROL: * Increase Basal insulin * Lantus 40 units (0.42 units/kg) SQ daily in AM * Will try to keep basal insulin once daily for easy transition back to pump at al. * Bolus insulin: tighten CF/CR * NovoLog per scale ACHS or Q6hrs while NPO * Goal Range: Low 110 mg/dL - High 140 mg/dL * Correction Factor: 15 mg/dL/unit * Nutritional / Prandial insulin per carb ratio of 1 unit per 5 grams CHO consumed PLAN FOR DISCHARGE: * A1c is in goal range. No changes needed unless patient is experiencing hypo as an outpatient.
[2020-09-24] MEDS ORDERED: LOSARTAN POTASSIUM 25 MG TAB PO SCH (11:30)
--- NOTE | 2020-09-24 12:05 | Nephrology Progress Note ---
Date of Service September 24, 2020 Assessment & Plan (1) Acute kidney injury superimposed on chronic kidney disease: (2) Acute hyperkalemia: (3) Bradycardia: (4) Metabolic acidosis: (5) CAD (coronary artery disease): (6) Cystitis: (7) Secondary hyperparathyroidism of renal origin: Plan: Karley was admitted to the hospital with ASHOK and hyperkalemia after she was noted to have high potassium on labs at [facility] where she was getting iron infusions. She reports getting Bactrim for recent UTI for last few days prior to admission. She was also on lisinopril and spironolactone with underlying CKD and coronary artery disease. Potassium was 6.3 which improved and has been staying around 5. 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 Has trace proteinuria. She the has been reluctant to get AVF as renal function has been relatively stable with prior history of repeated adverse reaction to anesthesia. Overall she has been feeling well, voiding normally, volume status acceptable. ASHOK resolved, creatinine back to close to baseline. Hyperkalemia resolved, potassium staying less than 5. heart rate staying from 60s to 70s. -- Increase amlodipine to 10 milligrams daily -- restarting on metoprolol 25 milligram b.i.d. -- monitor renal function electrolyte, if renal function stays relatively stable, clinically she otherwise feels well, can be discharged tomorrow with close outpatient lab monitoring weekly and follow-up in CKD clinic in 2 weeks Will follow Admission and Anticipated Discharge Date Admission Date: September 21, 2020 Subjective Nat feels well this morning, denies any specific symptom of shortness of breath or chest pain. appetite has been decent. Renal function Improved and close to baseline, hyperkalemia resolved. Blood pressure has been running high off of most of her antihypertensive medications. Review of Systems Review of Systems: Detailed review of system otherwise unremarkable. Physical Exam Constitutional: well developed and well nourished; no acute distress Respiratory: normal respiratory effort, lungs clear to auscultation Cardiovascular: RRR, no murmur, no edema Neurologic: moves all extremities and awake; not confused Psychiatric: A+Ox3, euthymic affect Results & Data ([facility]) Vital Signs (Past 12 Hours) Vital Signs Temp Pulse Pulse Resp BP BP Pulse Ox 09/24/20 07:16 71 09/24/20 03:05 36.7 C 73 16 179/78 H 173/83 H 97 09/24/20 02:58 70 17 93 PG Care Time/CCT Total # of Minutes Spent Total Time Spent with Patient: Total time spent is greater than 50% in coordination of care (as documented) at patient's floor/unit and/or counseling patient: Coding Level of Care Code 87284 Subseq Hosp Care Lvl 3 Diagnoses Acute kidney injury superimposed on chronic kidney disease N17.9; N18.9 Acute hyperkalemia E87.5 Bradycardia R00.1 Metabolic acidosis E87.2 CAD (coronary artery disease) I25.10 Cystitis N30.90 Secondary hyperparathyroidism of renal origin N25.81
[2020-09-24] MEDS: METOPROLOL TARTRATE 25 MG TAB PO SCH ×2 (12:58→20:29)
[2020-09-24] MEDS: traZODone HCL 50 MG TAB PO SCH (20:28)
[2020-09-24] MEDS ORDERED: INSULIN GLARGINE SOLOSTAR 100 UNITS/ML 3 ML PEN SC ONE (21:00)
[2020-09-25] MEDS: INSULIN ASPART 100 UNITS/ML 3 ML PEN SC SCH ×4 (00:39→12:08)
[2020-09-25] MEDS: SODIUM CHLORIDE 0.9% 1000ML 1,000 ML IV SCH (01:50)
[2020-09-25] MEDS: LEVOTHYROXINE SODIUM 88 MCG TABLET PO SCH (05:57)
[2020-09-25] MEDS: PANTOprazole 40 MG TAB PO SCH (08:01)
[2020-09-25] MEDS: MONTELUKAST SODIUM 10 MG TABLET PO SCH (08:01)
[2020-09-25] MEDS: SERTRALINE HCL 50 MG TABLET PO SCH (08:01)
[2020-09-25] MEDS: AMOXICILLIN/CLAVULANATE 250 MG TAB PO SCH (08:01)
[2020-09-25] MEDS: FEXOFENADINE HCL 180 MG TAB PO PRN (08:01)
[2020-09-25] MEDS: HEPARIN SOD 5,000 UNIT/0.5 ML VIAL SQ SCH (08:01)
[2020-09-25] MEDS: ASPIRIN 81 MG ECTAB PO SCH (08:01)
[2020-09-25] MEDS: GABAPENTIN 100 MG CAP PO SCH (08:01)
[2020-09-25] MEDS: RANOLAZINE 500 MG ER TAB PO SCH (08:02)
[2020-09-25] MEDS: CYANOCOBALAMIN 500 MCG TABLET (VITAMIN B-12) PO SCH (08:02)
[2020-09-25] MEDS: ROSUVASTATIN CALCIUM 20 MG TAB PO SCH (08:02)
[2020-09-25] MEDS: CLOPIDOGREL BISULFATE 75 MG TAB PO SCH (08:02)
[2020-09-25] MEDS: SODIUM BICARBONATE 650 MG TAB PO SCH (08:02)
[2020-09-25] MEDS: CALCITRIOL 0.25 MCG CAPSULE PO SCH (08:02)
[2020-09-25] MEDS: CALCIUM 600MG + VIT D 400 IU TAB PO SCH (08:03)
[2020-09-25] MEDS: CHOLECALCIFEROL 1,000 UNITS 25 MCG TAB PO SCH (08:03)
[2020-09-25] MEDS: IPRATROPIUM BROMIDE NASAL SPRAY 0.06% 15ML SCH ×2 (08:04→12:12)
[2020-09-25] MEDS: FAMOTIDINE 20 MG TAB PO SCH (08:04)
[2020-09-25] MEDS: METOPROLOL TARTRATE 25 MG TAB PO SCH (08:04)
[2020-09-25] MEDS: FLUTICASONE/VILANTEROL 200/25MCG 14 PUFFS/INHALER INH SCH (08:04)
[2020-09-25] MEDS: ISOSORBIDE MONO EXTENDED REL 60 MG TABCR PO SCH (08:04)
[2020-09-25] MEDS: UMECLIDINIUM BROMIDE 62.5MCG/BLISTER 7 PUFFS/INHALER INH SCH (08:04)
[2020-09-25] MEDS: INSULIN GLARGINE SOLOSTAR 100 UNITS/ML 3 ML PEN SC SCH (08:05)
[2020-09-25 08:06] LABS: Hemoglobin 10.9 g/dL (12.0-16.0); Mean Corpuscular Hemoglobin 31.3 pg (25-34); Mean Corpuscular Hgb Conc 32.1 g/dL (32-36); Mean Corpuscular Volume 97.7 fL (80-100); RDW Coefficient of Variation 13.5 % (11.5-14.5); RDW Standard Deviation 48.1 fL (36.4-46.3); Red Blood Count 3.48 M/uL (4.2-5.4); White Blood Count 1.52 K/uL (4.8-10.8)
[2020-09-25 08:22] LABS: Mean Platelet Volume 9.3 fL (7.4-10.4); Platelet Count 44 K/uL (130-400)
[2020-09-25 08:23] LABS: Eosinophils # (auto) 0.04 K/uL (0-0.5); Eosinophils % (auto) 2.6 %; Lymphocytes # (auto) 0.79 K/uL (1.2-3.4); Monocytes # (auto) 0.07 K/uL (0.11-0.59); Monocytes % (auto) 4.6 %; Neutrophils # (auto) 0.62 K/uL (1.4-6.5); Neutrophils % (auto) 40.8 %
[2020-09-25 08:38] LABS: BUN Creatinine Ratio 12.6 (10-20); Creatinine Clr Calc Pharmacy 23.6 ml/min; Est GFR (African American) 22.5 ml/min; Est GFR (Non-African American) 19.4 ml/min; Potassium 4.9 mmol/L (3.5-5.1)
[2020-09-25] MEDS ORDERED: amLODIPine BESYLATE 5 MG TAB PO SCH (09:00)
--- NOTE | 2020-09-25 10:06 | Hospitalist Progress Note ---
Date of Service September 25, 2020 Assessment & Plan Admission and Anticipated Discharge Date Admission Date: September 21, 2020 Results & Data Results & Data ([facility]) Vital Signs (Past 12 Hours) Vital Signs Temp Pulse Pulse Resp BP BP Pulse Ox 09/25/20 07:47 37 C 62 16 145/73 H 96 09/25/20 07:29 64 09/25/20 03:33 36.8 C 61 20 142/83 H 95 09/24/20 23:20 36.3 C L 67 20 138/65 97 09/24/20 22:30 70 22 94
[2020-09-25 10:08] LABS: Fibrinogen 272 mg/dl (184-400)
--- NOTE | 2020-09-25 10:44 | Nephrology Progress Note ---
Date of Service September 25, 2020 Assessment & Plan (1) Acute kidney injury superimposed on chronic kidney disease: Plan: BP improved. Creatinine stable at baseline. Potassium and other electrolytes acceptable. No changes at this time. Low K diet. Close outpatient follow up with nephrology within 2 weeks of discharge. (2) Acute hyperkalemia: Plan: Related to Bactrim, spironolactone, and lisinopril. Spironolactone may be restarted. Low K diet. Continue to hold ANGELI. (3) Bradycardia: Plan: Tele reviewed. HR acceptable. (4) Metabolic acidosis: Plan: NaHCO3 650 QD per home Rx. (5) Cystitis: Plan: Clinically improve. (6) Secondary hyperparathyroidism of renal origin: Plan: Calcitriol 0.25 MWF. Caltrate + D Admission and Anticipated Discharge Date Admission Date: September 21, 2020 Subjective No acute events overnight. Abdominal/GI symptoms improved. Nat feels well this AM. Hopes to be discharged home soon. Appetite is good. Review of Systems Constitutional: no weight loss, no weight gain and no problem reported Eyes: no problem reported Ear, Nose, Mouth, Throat: no problem reported Respiratory: no problem reported Cardiovascular: no problem reported Gastrointestinal: no problem reported Musculoskeletal: no problem reported Integumentary: no problem reported Neurologic: no problem reported Psychiatric: no problem reported Endocrine: no problem reported Hematologic / Lymphatic: no problem reported Physical Exam Constitutional: well developed; no acute distress Eyes: no scleral abnormality and no corneal abnormality ENMT: Mouth: no oral mucosal abnormality and oral mucous membranes not dry Neck: normal visual inspection and trachea midline Respiratory: normal respiratory effort Auscultation: lungs clear to auscultation bilaterally Cardiovascular: Rate/Rhythm: regular rate Heart Sounds: normal S1 and normal S2 Extremities: no edema Musculoskeletal: Extremities: no cyanosis and no clubbing Skin: normal turgor; no lesions Neurologic: Motor/Sensory: no tremor and no asterixis Psychiatric: Orientation: alert and oriented x 3 Results & Data ([facility]) Vital Signs (Past 12 Hours) Vital Signs Temp Pulse Pulse Resp BP BP Pulse Ox 09/25/20 07:47 37 C 62 16 145/73 H 96 09/25/20 07:29 64 09/25/20 03:33 36.8 C 61 20 142/83 H 95 09/24/20 23:20 36.3 C L 67 20 138/65 97 Laboratory Results Laboratory Results - last 24 hr 09/24/20 09/24/20 09/24/20 11:27 16:44 17:46 WBC RBC Hgb Hct MCV MCH MCHC RDW Std Deviation RDW Coeff of Gomez Plt Count MPV Immature Gran % (Auto) Neut % (Auto) Lymph % (Auto) [place] % (Auto) Eos % (Auto) Baso % (Auto) Neut # (Auto) Lymph # (Auto) [place] # (Auto) Eos # (Auto) Baso # (Auto) Immature Gran # (Auto) Peripher Smr Path Cons Fibrinogen Fibrin Degrad Products Sodium Potassium Chloride Carbon Dioxide Anion Gap BUN Creatinine Est Cr Clr Drug Dosing Est GFR ( Amer) Est GFR (Non-Af Amer) BUN/Creatinine Ratio Glucose POC Glucose 203 H 161 H Calcium 09/24/20 09/24/20 09/25/20 19:54 23:21 04:38 WBC RBC Hgb Hct MCV MCH MCHC RDW Std Deviation RDW Coeff of Gomez Plt Count MPV Immature Gran % (Auto) Neut % (Auto) Lymph % (Auto) [place] % (Auto) Eos % (Auto) Baso % (Auto) Neut # (Auto) Lymph # (Auto) [place] # (Auto) Eos # (Auto) Baso # (Auto) Immature Gran # (Auto) Peripher Smr Path Cons Fibrinogen Fibrin Degrad Products Sodium Potassium Chloride Carbon Dioxide Anion Gap BUN Creatinine Est Cr Clr Drug Dosing Est GFR ( Amer) Est GFR (Non-Af Amer) BUN/Creatinine Ratio Glucose POC Glucose 89 108 H 139 H Calcium 09/25/20 09/25/20 09/25/20 07:51 07:53 07:53 WBC 1.52 L RBC 3.48 L Hgb 10.9 L Hct 34.0 L MCV 97.7 MCH 31.3 MCHC 32.1 RDW Std Deviation 48.1 H RDW Coeff of Gomez 13.5 Plt Count 44 L MPV 9.3 Immature Gran % (Auto) 0.0 Neut % (Auto) 40.8 Lymph % (Auto) 52.0 [place] % (Auto) 4.6 Eos % (Auto) 2.6 Baso % (Auto) 0.0 Neut # (Auto) 0.62 L* Lymph # (Auto) 0.79 L [place] # (Auto) 0.07 L Eos # (Auto) 0.04 Baso # (Auto) 0.00 Immature Gran # (Auto) 0.00 Peripher Smr Path Cons Fibrinogen Fibrin Degrad Products Sodium 140 Potassium 4.9 Chloride 112 H Carbon Dioxide 22 Anion Gap 6.0 BUN 31 H Creatinine 2.45 H D Est Cr Clr Drug Dosing 23.6 Est GFR ( Amer) 22.5 Est GFR (Non-Af Amer) 19.4 BUN/Creatinine Ratio 12.6 Glucose 159 H POC Glucose 157 H Calcium 9.0 09/25/20 09/25/20 08:28 08:28 WBC RBC Hgb Hct MCV MCH MCHC RDW Std Deviation RDW Coeff of Gomez Plt Count MPV Immature Gran % (Auto) Neut % (Auto) Lymph % (Auto) [place] % (Auto) Eos % (Auto) Baso % (Auto) Neut # (Auto) Lymph # (Auto) [place] # (Auto) Eos # (Auto) Baso # (Auto) Immature Gran # (Auto) Peripher Smr Path Cons Fibrinogen 272 Fibrin Degrad Products <10 Sodium Potassium Chloride Carbon Dioxide Anion Gap BUN Creatinine Est Cr Clr Drug Dosing Est GFR ( Amer) Est GFR (Non-Af Amer) BUN/Creatinine Ratio Glucose POC Glucose Calcium PG Care Time/CCT Total # of Minutes Spent Total Time Spent with Patient: Total time spent is greater than 50% in coordination of care (as documented) at patient's floor/unit and/or counseling patient: Coding Level of Care Code 38147 Subseq Hosp Care Lvl 3 Diagnoses Acute kidney injury superimposed on chronic kidney disease N17.9; N18.9 Acute hyperkalemia E87.5 Bradycardia R00.1 Metabolic acidosis E87.2 Cystitis N30.90 Secondary hyperparathyroidism of renal origin N25.81
--- NOTE | 2020-09-25 13:29 | Discharge Summary ---
Date of Service September 25, 2020 Admission HPI Per Admitting Provider The patient is a 70-year-old female with a past medical history including stage IV chronic kidney disease, CAD, mitral regurgitation, bilateral carotid artery disease, hepatic cirrhosis, anemia, ASCVD, asthma, cerebral artery aneurysm, chronic reflux esophagitis, diabetes mellitus type 2 with long-term insulin use, depression, diabetic with peripheral neuropathy, diabetic gastroparesis, hypercholesterolemia, hypertension, hypothyroidism, insulin pump, intestinal metaplasia of gastric mucosa, hearing loss, vitamin D deficiency and secondary hyperparathyroidism of renal origin. Patient has been taking Bactrim DS twice daily, on day 06/16 for urinary tract infection. She reports not feeling well for the past several days. Routine laboratories in the outpatient setting noted a potassium of 6.2, and creatinine 3.28, increased above her baseline. She was referred to the ED for further assessment. She reports that her primary symptom is that of ambulatory dysfunction, "walking around like she is drunk". Principal Diagnosis Hyperkalemia, junctional bradycardia Discharge Exam Constitutional: well-appearing, no acute distress HEENT: NCAT, no conjunctival injection CV: regular rhythm, no murmur appreciated, extremities well-perfused, no LE edema Resp: CTABL, no wheezes/rales/rhonchi appreciated, no increased work of breathing Neuro: AOx4, no focal neurological deficits appreciated Discharge Data Allergies Allergy/AdvReac Type Severity Reaction Status Date / Time levofloxacin Allergy Intermediate rash Verified 09/21/20 14:00 enalapril Allergy Unknown DRY COUGH Verified 09/21/20 14:00 insulin detemir Allergy Unknown HIVES Verified 09/21/20 14:00 enalaprilat [From Vasotec] Allergy Unknown Verified 09/21/20 14:00 Consultations 09/21/20 13:15 ED Decision to Admit Stat 09/22/20 10:50 Consult Nephrology Routine Hospital Course (1) Junctional bradycardia: 70-year-old female with a past medical history of stage IV CKD, CAD, hepatic cirrhosis, DM 2, hypothyroidism, depression, asthma who reported not feeling well for the past several days. Routine laboratories in the outpatient setting showed a potassium of 6.2 and creatinine of 3.28, increased above her baseline. Junctional bradycardia, hyperkalemia - Secondary to hyperkalemia - improved with management of potassium - Potassium on arrival at 6.3 - Given insulin 10 units x2, kayexalate 30g x1, calcium gluconate 1g IV x1 - Continued aspirin, clopidogrel, isosorbide mononitrate, ranolazine - Nephrology consulted -Likely hyperkalemia caused by losartan, spironolactone, and bactrim in the setting of kidney disease -Hold losartan, spironolactone, bactrim - Restart spironolactone at DC--continue to hold losartan - Low K diet - F/U with PCP for outpatient BMP within 3-5 days of DC CKD4 - Creatinine 3.28 upon admission, baseline 2.50-2.82 - Improved to 3.18 (09/23) - Continue sodium bicarbonate - Nephro recommendations above - F/U with nephro in 2 weeks as outpatient Hypertension - Per nephrology, started amlodipine 10mg daily and started metoprolol tartrate 25mg twice daily (previously on metoprolol succinate 75mg PO BID) - Hold losartan as above - Restart spironolactone at DC Asthma - No acute exacerbation - Continue fluticasone/Vilanterol and leave albuterol nebulizer 3 times daily as needed GERD - Continue pantoprazole DM2 with peripheral neuropathy - Accu-Cheks before meals and at bedtime with NovoLog coverage per scale - A1c of 6.0 - Received regular insulin x2 for hyperkalemia as above - Continued home gabapentin - Can continue home insulin pump at MD Hyperlipidemia - Continued home rosuvastatin Hypothyroidism - Continued home levothyroxine Dispo: Home - Self Care CODE: FULL (2) 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: (3) Asthma: (4) Chronic reflux esophagitis: (5) Controlled type 2 diabetes mellitus with kidney complication, with long-term current use of insulin: (6) Diabetic peripheral neuropathy: (7) Hypercholesterolemia: (8) Hypertension: (9) Hyperkalemia: Total Time Total Time Spent Total Time Spent (In Minutes): <30 Discharge Plan Discharge Items Patient Disposition: Home - Self-Care Reason For Visit: HYPERKALEMIA Discharge Diagnosis: Hyperkalemia, junctional bradycardia Activity: Per Instructions section Non-emergency contact: Primary Care Provider, Instructor Industrial Design and Oncologist Call non-emergency contact if: you have any medication questions and your symptoms worsen Follow-up/Referrals: Mindi Antoine MD [Primary Care Provider] - 10/03/20 9:20 am Diet: Carb Consistent or DM2, Heart Healthy and Low Potassium (2gm) Addtl Attending Provider Instructions: You were admitted to [facility] due to elevated potassium resulting in a dangerously slow heart rate. You were treated with several different medications to decrease your potassium. Ultimately, your elevated potassium was found to be caused by a combination of medications including lisinopril, spironolactone, and Bactrim. As such, all the above medications were stopped and your potassium did return to your baseline. Per the nephrology team's recommendations, your lisinopril will be stopped permanently. To control your blood pressure, you were started on amlodipine 10 mg daily and your metoprolol was switched to a different dose/formulation (metoprolol tartrate 25mg twice daily. Please stop taking your previous kind of metoprolol. All your new medications have been sent to your pharmacy. At discharge you will also restart your regular home spironolactone. We recommend that you follow up with your primary care provider for discussion of your hospitalization and repeat labs (basic metabolic panel) within the next 3 to 5 days. Please reach out to your PCP to have that lab study ordered. Additionally, you should follow-up with nephrology within 2 weeks of discharge. We also recommend that you follow with hematology/oncology as regularly scheduled for your pancytopenia. You should continue all your other home medications as previously prescribed. Pending Studies at Discharge: No Stand-Alone Forms: My [facility], Smoking Cessation Medications and DC Order Prescriptions: New amlodipine [Norvasc] 5 mg Tablet 10 mg PO QAM 30 Days Qty: 60 RF: 0 metoprolol tartrate 25 mg Tablet 25 mg PO BID 30 Days Qty: 60 RF: 0 Continued isosorbide mononitrate 120 mg tablet extended release 24 hr 180 mg PO DAILY Qty: 135 RF: 3 spironolactone 100 mg tablet 100 mg PO DAILY Qty: 90 RF: 3 cholecalciferol (vitamin D3) 25 mcg (1,000 unit) tablet 25 mcg PO DAILY Qty: 90 RF: 1 (DME) Omnipod Insulin Refill Cartridge See Dose Instructions .ROUTE .MEDSUPPLY Qty: 180 RF: 3 ofloxacin 0.3 % drops 5 drp OPHTHALMIC (EYE) BID PRN (Reason: DRAINING EAR) Qty: 10 RF: 3 clopidogrel 75 mg tablet 75 mg PO DAILY Qty: 90 RF: 1 ranolazine 1,000 mg tablet extended release 12 hr 1,000 mg PO BID Qty: 180 RF: 3 montelukast [Singulair] 10 mg tablet 10 mg PO DAILY Qty: 90 RF: 1 gabapentin 100 mg capsule 100 mg PO BID Qty: 180 RF: 1 rosuvastatin 40 mg tablet 40 mg PO DAILY Qty: 90 RF: 1 trazodone 50 mg tablet 50 mg PO HS Qty: 90 RF: 1 (DME) Fed Playbook 5 Pack Pod Cartridge See Rx Instructions .ROUTE .MEDSUPPLY Qty: 90 RF: 3 famotidine 20 mg tablet 20 mg PO DAILY Qty: 90 RF: 1 sertraline 100 mg tablet 150 mg PO DAILY 90 Days Qty: 135 RF: 1 sodium bicarbonate 650 mg tablet 650 mg PO DAILY Qty: 90 RF: 3 albuterol sulfate [Ventolin HFA] 90 mcg/actuation HFA aerosol inhaler 2 puff INHALATION Q4 PRN (Reason: Shortness Of Breath Or Wheezing) Qty: 18 RF: 11 Breo Ellipta 200-25 mcg/dose blister with device 1 puffs INH DAILY Qty: 1 RF: 11 levalbuterol HCl 1.25 mg/3 mL solution for nebulization 1.25 mg INHALATION TID PRN (Reason: ASTHMA) Qty: 36 RF: 5 (DME) FreeStyle Test Strip See Dose Instructions .ROUTE .MEDSUPPLY RF: 0 aspirin [Adult Aspirin Regimen] 81 mg tablet,delayed release (DR/EC) 81 mg PO DAILY RF: 0 tramadol 50 mg tablet 50 mg PO Q6H PRN (Reason: Pain) Qty: 60 RF: 0 fexofenadine [Chelsie Allergy] 180 mg Tablet 180 mg PO DAILY PRN (Reason: ALLERGIES) RF: 0 olopatadine 0.1 % Drops 1 drp OPHTHALMIC (EYE) BID PRN (Reason: AFFECTED EYE) RF: 0 ipratropium bromide 0.03 % [place],Non-Aerosol 1 spray INTRANASAL ACHS RF: 0 Spiriva with HandiHaler 18 mcg Capsule, W/Inhalation Device 1 cap INHALATION DAILY RF: 0 Caltrate 600 plus D 600 mg (1,500 mg)-800 unit Tablet,Chewable 1 tab PO QAM RF: 0 cyanocobalamin (vitamin B-12) 500 mcg Tablet 1,000 mcg PO DAILY Qty: 30 RF: 0 levothyroxine 88 mcg tablet 88 mcg PO QAM RF: 0 insulin aspart U-100 [Novolog U-100 Insulin aspart] 100 unit/mL solution 230 unit subcut DIRECTED RF: 0 pantoprazole 40 mg tablet,delayed release (DR/EC) 40 mg PO QAM RF: 0 calcitriol 0.25 mcg capsule 0.25 mcg PO 3XWK RF: 0 Discontinued losartan 25 mg tablet 25 mg PO DAILY Qty: 90 RF: 3 sulfamethoxazole-trimethoprim [Bactrim DS] 800-160 mg tablet 1 tab PO BID 7 Days Qty: 14 RF: 0 metoprolol succinate 50 mg tablet extended release 24 hr 75 mg PO BID Qty: 270 RF: 3 Discharge Orders: Discharge Order (Routine); Ordered 09/25/20 Ordered By: Maxwell Gutierrez/Other Patient Handouts: A1C, Managing Type 2 Diabetes, Special Foot Care for Diabetes Admission Data Admit Date/Time: 09/21/20 15:45 Attending Provider: Jerry Orta Admit Provider: Thien Rangel Primary Care Provider: Mindi Antoine Other Providers: Thien Rangel ; Yamil Whitehead Other Interventions: Discharge Summary Assessment (RN) Last Done: 09/25/20 13:21 Supervising Physician Co-Signing Physician Notes I personally examined the patient and verified all lobato points of history and exam, discussed case, and agree with decision making with Dr Huddleston feeling better really wants to go home feeling up to going home no other new complaints discussed outpt f/u vitals noted nad heent nc at mmm breathing unlabored no accessory muscles good effort hyperkalemia precipitating junciotnal lashonda due to K + beta shree - Dre negrete from meds combined w CKD - now improved. cautiously resume spironolactone, BMP later this week. stable for home, otherwise as above Resident Activity Tracking Resident Involvement: Resident Care Provided Care Provided: Adult Hospital Medicine
--- NOTE | 2020-09-25 15:54 | Electrocardiogram Report ---
Test Reason : Blood Pressure : / mmHG Vent. Rate : 075 BPM Atrial Rate : 075 BPM P-R Int : 162 ms QRS Dur : 078 ms QT Int : 382 ms P-R-T Axes : 041 035 117 degrees QTc Int : 426 ms Sinus rhythm with marked sinus arrhythmia Nonspecific ST and T wave abnormality Abnormal ECG When compared with ECG of 21-SEP-2020 11:57, Sinus rhythm has replaced Junctional rhythm Vent. rate has increased BY 33 BPM Nonspecific T wave abnormality now evident in Anterolateral leads Confirmed by Michael Thomas ([id number]) on 09/25/2020 3:53:55 PM Referred By: REFERRED SELF Confirmed By:Michael Thomas
--- NOTE | 2020-09-25 18:21 | Billing Data ---
Date of Service September 25, 2020 Coding Level of Care Code D/C DAY MANAGEMENT <30 MINS
== END 2020-09-25 14:12 | disposition home or self-care (01) | DRG 683 ==
LOC: ED 11:44 → 2S 15:45 → SUATTDRO 15:45 → 2S 16:39
DX: Z96.41 Presence of insulin pump (external) (internal); R00.1 Bradycardia, unspecified; N18.4 Chronic kidney disease, stage 4 (severe); E11.42 Type 2 diabetes mellitus with diabetic polyneuropathy; E87.5 Hyperkalemia; E11.22 Type 2 diabetes mellitus with diabetic chronic kidney disease; Z79.82 Long term (current) use of aspirin; N25.81 Secondary hyperparathyroidism of renal origin; N39.0 Urinary tract infection, site not specified; I12.9 Hypertensive chronic kidney disease with stage 1 through stage 4 chronic kidney disease, or unspecified chronic kidney disease; J45.909 Unspecified asthma, uncomplicated; N17.9 Acute kidney failure, unspecified; E03.9 Hypothyroidism, unspecified

== ENCOUNTER 2021-06-20 10:04 | Inpatient (IN) ==
[2021-06-20] MEDS ORDERED: SODIUM CHLORIDE 0.9% 1000ML 1,000 ML IV STA (10:47)
[2021-06-20 11:09] LABS: Hematocrit (blood only) 24.9 % (37-47); Hemoglobin 7.3 g/dL (12.0-16.0); Mean Corpuscular Hemoglobin 28.6 pg (25-34); Mean Corpuscular Hgb Conc 29.3 g/dL (32-36); Mean Corpuscular Volume 97.6 fL (80-100); Nucleated RBC # (auto) 0.04 K/uL (0-0); Nucleated RBC % (auto) 1.7 %; RDW Coefficient of Variation 20.2 % (11.5-14.5); RDW Standard Deviation 68.4 fL (36.4-46.3); Red Blood Count 2.55 M/uL (4.2-5.4)
[2021-06-20 11:25] LABS: INR 1.1 (0.9-1.1); Partial Thromboplastin Ratio 0.9; Prothrombin Time 11.5 Seconds (9.0-12.0)
[2021-06-20 11:34] LABS: Alanine Aminotransferase 80 U/L (7-52); Albumin Globulin Ratio 1.3 (0.9-2); Albumin Level 3.7 gm/dl (3.4-5.0); Alkaline Phosphatase 222 U/L (34-104); Anion Gap 8 (3-11); Aspartate Aminotransferase 71 U/L (13-39); BUN Creatinine Ratio 14.9 (10-20); Bilirubin,Total 9.2 mg/dl (0.2-1.0); Blood Urea Nitrogen 40 mg/dl (6-23); Calcium 8.8 mg/dl (8.5-10.1); Carbon Dioxide 25 mmol/L (21-32); Chloride 106 mmol/L (98-107); Est GFR (African American) 20.1 ml/min; Est GFR (Non-African American) 17.3 ml/min; Globulin 2.9 gm/dl (2.5-4.0); Glucose 117 mg/dl (70-99(Fasting)); Potassium 3.7 mmol/L (3.5-5.1); Sodium 139 mmol/L (136-145); Total Protein 6.6 gm/dl (6.0-8.3)
--- NOTE | 2021-06-20 11:38 | XRay Report ---
XR chest 1V portable CLINICAL HISTORY: SOB TECHNIQUE: Single frontal radiograph of the chest was obtained. Comparison: None available at the time of this dictation. FINDINGS: Median sternotomy wires are seen with redemonstration of fractured wires. Cardiomegaly is noted. The lungs are clear. No evidence of pleural effusion or pneumothorax. IMPRESSION: Cardiomegaly without additional abnormality. In particular, no evidence of significant pulmonary tenzin a. ACT 112: Negative or not required by law. Electronically signed by: Helio Davalos M.D. 06/20/2021 11:37 AM
[2021-06-20 11:43] LABS: Mean Platelet Volume 10.7 fL (7.4-10.4); Platelet Count 90 K/uL (130-400)
[2021-06-20 11:44] LABS: Anisocytosis Present; Basophils # (auto) 0.02 K/uL (0-0.2); Basophils % (auto) 0.8 %; Eosinophils # (auto) 0.03 K/uL (0-0.5); Eosinophils % (auto) 1.2 %; Hypochromasia Present; Immature Granulocytes # (auto) 0.03 K/uL (0.00-0.02); Immature Granulocytes % (auto) 1.2 %; Lymphocytes % (auto) 30.8 %; Monocytes # (auto) 0.29 K/uL (0.11-0.59); Monocytes % (auto) 11.2 %; Neutrophils # (auto) 1.43 K/uL (1.4-6.5); Neutrophils % (auto) 54.8 %; Ovalocytes 1+; Polychromasia 1+
[2021-06-20] MEDS ORDERED: DEXTROSE 50% 50 ML SYRINGE IV STA (12:35)
--- NOTE | 2021-06-20 13:12 | CT Scan Report ---
CT abd pelvis wo con CLINICAL HISTORY: acute jaundice TECHNIQUE: Helical axial images of the abdomen and pelvis were obtained. Automated dose lowering tech niques and/or adjustment according to patient size were utilized for this exam. This exam was perfor med without intravenous contrast. CT DOSE: 1032.35 mGy.cm COMPARISON: Comparison is made to liver ultrasound 03/02/2021 and abdominal MRI 08/05/2019 FINDINGS: Lower chest: Atelectasis and groundglass opacities are seen in the lower lungs. Cardiomegaly with bi atrial enlargement is seen. There are atherosclerotic calcifications in the coronary arteries. Liver: Nodular contour of the liver is seen compatible with cirrhosis. Gallbladder and biliary tree: Patient is status post cholecystectomy. No intra- or extrahepatic bilia ry ductal dilation. Pancreas: Unremarkable, no focal lesions. Spleen: Splenomegaly is noted, the spleen measures 20.5 cm in length. Adrenals: Unremarkable. Kidneys and ureters: Unremarkable. Bladder: Limited evaluation due to underdistention. Reproductive organs: Unremarkable. Bowel: Unremarkable. Lymph nodes Retroperitoneal: Unremarkable. Mesenteric: Unremarkable. Pelvic: Unremarkable. Peritoneum: Fat stranding is seen throughout the peritoneum. Vessels: Atherosclerotic calcifications are seen. Abdominal wall: Unremarkable. Bones: Unremarkable. IMPRESSION: 1. Diffuse peritoneal stranding, increased from prior exam, may represent nonspecific inflammatory o r infectious process. 2. Cirrhosis and splenomegaly. ACT 112: Negative or not required by law. Electronically signed by: Helio Davalos M.D. 06/20/2021 1:09 PM
[2021-06-20] MEDS ORDERED: PANTOprazole 80 MG in DEXTROSE 5% 100 ML IV ONE (14:00)
[2021-06-20] MEDS ORDERED: PANTOPRAZOLE BOLUS/DRIP 1 EA IV STA (14:00)
--- NOTE | 2021-06-20 14:05 | History & Physical Report ---
Date of Service June 20, 2021 Assessment & Plan (1) Anemia: Plan: Nat Kaur is a 71yo F witha PMHx of CAD with PCI x4 last 08/2020, CA BG, HTN, HLD, DM2, CKD, COPD, cirrhosis, KEREN on CPAP, CHF, PAF, FINA with recurrent anemia in the absence of overt GI bleeding who presents for symptomatic anemia on outpatient labs. Anemia, 2/2 CKD and suspected intravascular hemolysis/splenic sequestration - Occult blood negative as outpt, weak positive in ER. PPI ordered on admit, will continue empirically - Hgb 05/03 9.3, hgb at [facility] 06/14 5.3 -> 7.1 with 4 units. Venofer and Ritacrit given as outpt. - Outpt hgb 7.5, admit hgb 7.3 - 2 units ordered, pt with rbc antibodies and pending blood availability. - MCV 96, increased RDW - retic % 8.6, Hct 25. Retic production Index ~2.5 --> Appropriate Response w/ epo - WBC, Plt suppressed (2.46, 88). - Iron studies 06/19: Ferritin 436(H), xferrin 227(N), iron 210(H). TSAT/xfer/UIBC nd. - LDH 264 - Haptoglobin pending - Direct bili 3.0, total bili 9.0. - Admitting EKG: nsr without acute territorial ST segment changes. QTc 467. - Gabapentin held, ranolazine held. SSRI continued. - MRI 07/2019: Cirrhotic liver with splenomegaly, no hepatic masses, 4.6cm left adnexa cystic lesion. - Gabapentin held - Ranolazine held - no schistocytes reported, +spherocytes Hx Cirrhosis, per pt 2/2 preceding diabetic renal disease. Acute Jaundice on Admit - No hx etoh use, hepatitis, IVDU - MELD 25, Child-Sheets Class B - EGD 03/15/21: Esophagus normal, stomach normal, duodenum normal - GI visit 03/22/21: Repeat EGD in 2 years. HCC surveillance routine. No evidence of varices. Does experience heartburn. - Bili 1.6 as past admit, total 9.0/direct 3.0 on admit. No schistocyte seen, +spherocytes, Suspect extravascular hemolysis + underlying hepatic dysfunction impairing clearance - CT-A/P: Diffuse peritoneal stranding, increased from prior exam, may represent nonspecific inflammatory or infectious process. Cirrhosis and splenomegaly. - 03/12/21 Liver US: Liver heterogenous and coarse with lobulated contour, 20cm length, no focal mass, no itrahepatic duct dilation. GB without wall thickening/edema. CBD normal 4mm. IVC patent. - Rosuvastatin held for hepatic dysfunction - Alpha antitrypsin pending - GI consulted CAD w/ PCI x4 last 08/2020, CABG - Hx R-JONO to PDA, L-JONO to LAD, Saph to LCX maginal - 12/2020 Carotid Doppler: 70% R-ICA, 50-69% L ICA stenosis unchagned from 2019 - Home apixaban 5mg held for anemia previously - ASA 81mg continued for high risk with hx stents - Lasix 40mg daily - Isosorbide mononitrate 120mg XR daily - Metoprolol succinate 75mg PO BID - Ranolazine held for potential hematopoetic suppression - Spironolactone 100mg daily previously held with ?ASHOK - Rosuvastatin 40mg held for hepatic dysfunction Chronic HF with preserved EF, no acute exacerbation - Reported by [facility] ramana, per pts [facility] cardiology review likely not consistent with CHR,but continued on lasix - No acute exacerbation - CXR without pulmonary edema - CAD management as noted - SpO2 goal >90% Paroxysmal Afib - Admitting EKG nsr - Recently d/la DOAC due to anemia as above - No acute intervention at time of admission, continue home meds incluidng metoprolol Hypothyroidism - Synthroid 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 - trazodone 50mg qHS PRN for sleep --> melatonin 3mg PO qHS PRN T2DM - Home insulin: aspart up to 230u daily via omnipod - BSG monitor malfunctioning in ER, will place on AC/HS and sliding scale - Pt reports home total daily dose of ~127 units - Basal 22u BID, CF 20, Carb ratio 6. CKD - baseline cr ~2.8-3.0 - Cr 2.65 on outpt lab - Admit cr 2.68 - Has not needed dialysis. Has discussed fistula placement, but have deferred so far as her function had been stable. Would want a tunneled catheter in an emergency. - BMP daily, renally dose medications HTN - BEHAVIORAL HEALTH SPECIALIST amlodipine 5mg HLD - Statin held as noted GERD - On PPI as previously noted - EGD as noted, no abnormalities/varices COPD/Asthma - No hx tobacco abuse - Alpha antitrypsin pending - continued home inhalers - No wheezing on exam, no acute exacerbation KEREN on CPAP 7mmH2O - Continue CPAP (2) Arteriosclerotic cardiovascular disease (ASCVD): (3) Asthma: (4) Bilateral carotid artery disease: (5) CAD (coronary artery disease): (6) Carotid stenosis: (7) Controlled type 2 diabetes mellitus with kidney complication, with long-term current use of insulin: (8) Heart failure with preserved ejection fraction: (9) Hepatic cirrhosis: (10) Hypercholesterolemia: (11) Hypertension: (12) Hypothyroidism: (13) Obesity, Class II, BMI 35-39.9: (14) Paroxysmal atrial fibrillation: (15) Pancytopenia: (16) Splenomegaly: (17) 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: History of Present Illness Primary Care Provider: Mindi Antoine MD Nat Millardparminder is a 71yo F witha PMHx of CAD with PCI x4 last 08/2020, CA BG, HTN, HLD, DM2, CKD, COPD, cirrhosis, KEREN on CPAP, CHF, PAF, FINA with recurrent anemia in the absence of overt GI bleeding who presents for symptomatic anemia on out patient labs. Last hospitalization in [facility] discharged 06/15/21 for anemia with L sided chest pain. Was noted to have iron xfusion 05/10. Recieved lasix for ?PNA vs pulm edema. Hgb 5.3 at that time and recieved 4u pBC. Home O2 4L rest, 6L exertion. Eliquis held. Spironolactone held due to Cr 3.1. Cotninued on lasix 40mg daily. At 06/18/21 PCP followup chris somewhat improved. Was to see nephro 06/21, cardiology 06/19, hematology, and f/u with Gi although patient was not interested in liver transplant referral. Seen by cardiology 5/10/22. Noted to have worsening jaundice [facility] discharge with LUQ discomfort. Pt feels she has been doing poorly for several months, although notes she was trying to hide it form her but last Friday got to the point where she was so tired she had to see her doctor. notes she has been yellow just in the past few days/week. No fevers, chills, sweats. +Nausea daily for several days with dry heaves Diarrhea started today, hasn't looked at the color. +LLQ abdominal pain started today with her diarrhea, non prior to this. Has been seen for congestive heart failure and recently saw Dr. Hooker. 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 HOme O2 just int he last week, no prior oxygen requirements. No swelling in the legs. NO chest pain, no chest pressure, no shortness of breath on her oxygen. No bleeding/ Pt reports she has begun to feel very nauseas. +Emesis nonbloody. Unclear etiology of her cirrhosis, was told her kidney disease from DM led to her liver cirrhosis. No history or alcohol use or drug use. Denies history of hepatitis, HCV prior testing negative. Last colonoscopy 2019 normal per pt. Did not take morning medications yet except for omeprazole, lasix, and synthroid. Has been taken off spironolactone, crestor, gabapentin, and renexa in this past week. Used to get neuropathy which has not been occuring which is what she used to take gabapentin for. At last visit saw Juli who reproted she would have more followup. Had not discussed tertiary care yet. Did she [facility] Hepatology many years ago, but has not had recent followup. Would want tertiary evaluation if her condition were to worsen or become life threating. Deferred invasive measures/surgery/fistula palcement in the past as she felt her illness was not critical yet, but would be interested in this for progressive/worsening illness. MELD 25, Child-Sheets Class B Medical History: Reviewed Medications: Reviewed Surgical History: Reviewed Allergies: Reviewed Social History: No tobacco/etoh use. No rec drug use. Code Status: Surrogate would be her Keny. Full Code. Allergies Allergy/AdvReac Type Severity Reaction Status Date / Time levofloxacin Allergy Intermediate rash Verified 06/20/21 12:35 enalapril Allergy Unknown DRY COUGH Verified 06/20/21 12:35 insulin detemir Allergy Unknown HIVES Verified 06/20/21 12:35 enalaprilat [From Vasotec] Allergy Unknown Verified 06/20/21 12:35 Home Medications Medication Instructions Recorded Confirmed Type calcium carbonate 600 mg-vitamin 1 tab PO QAM 08/27/18 06/20/21 History D3 20 mcg (800 unit) chewable tablet (Caltrate 600 plus D) fexofenadine 180 mg tablet 180 mg PO DAILY PRN 08/27/18 06/20/21 History (Chelsie Allergy) ipratropium bromide 21 mcg (0.03 1 spray INTRANASAL UD PRN 08/27/18 06/20/21 History %) nasal spray tramadol 50 mg tablet 50 mg PO Q6H PRN #60 tab 09/04/18 06/20/21 Rx blood sugar diagnostic (FreeStyle ea 03/15/19 06/19/21 History Test) Omnipod Classic Pods (Gen 3) #180 ea NS 01/19/20 06/19/21 Rx (insulin pump cartridge) Omnipod Dash Pods (Gen 4) (insulin #90 ea NS 08/16/20 06/19/21 Rx pump cartridge) levothyroxine 88 mcg tablet 88 mcg PO QAM #90 tab 02/01/21 06/20/21 Rx cholecalciferol (vitamin D3) 25 25 mcg PO QAM 03/09/21 06/20/21 History mcg (1,000 unit) tablet cyanocobalamin (vitamin B-12) 500 1,000 mcg PO QAM 03/09/21 06/20/21 History mcg tablet rosuvastatin 40 mg tablet 40 mg PO QAM 03/09/21 06/20/21 History sodium bicarbonate 650 mg tablet 650 mg PO QAM 03/09/21 06/20/21 History insulin aspart U-100 100 unit/mL 230 unit SUBCUT DAILY 90 Days #207 03/13/21 06/20/21 Rx subcutaneous solution (Novolog ml U-100 Insulin aspart) blood-glucose sensor (QuadROI G6 #1 ea 03/21/21 06/19/21 Rx Sensor) apixaban 5 mg tablet 5 mg PO BID #180 tab 05/30/21 06/20/21 Rx gabapentin 100 mg capsule 100 mg PO BID #180 cap 06/05/21 06/20/21 Rx spironolactone 100 mg tablet 100 mg PO QAM #90 tab 06/06/21 06/20/21 Rx tiotropium bromide 18 mcg capsule 1 cap INHALATION QAM 90 Days #90 06/06/21 06/20/21 Rx with inhalation device (Spiriva inh with HandiHaler) trazodone 50 mg tablet 50 mg PO HS #90 tab 06/06/21 06/20/21 Rx albuterol sulfate 90 mcg/actuation 2 puff INHALATION Q4 PRN #54 g 06/07/21 06/20/21 Rx aerosol inhaler (Ventolin HFA) fluticasone furoate 200 1 inh INH QAM #180 ea 06/07/21 06/20/21 Rx mcg-vilanterol 25 mcg/dose inhalation powder (Breo Ellipta) furosemide 40 mg tablet (Lasix) 40 mg PO QAM #120 tab 06/07/21 06/20/21 Rx levalbuterol HCl 1.25 mg/3 mL 1.25 mg INHALATION TID PRN #810 ml 06/07/21 06/20/21 Rx solution for nebulization metoprolol succinate 50 mg 75 mg PO BID #270 tab 06/07/21 06/20/21 Rx tablet,extended release 24 hr nitroglycerin 0.4 mg sublingual 0.4 mg SUBLINGUAL Q5M PRN #30 tab 06/07/21 06/20/21 Rx tablet olopatadine 0.1 % eye drops 1 drp OPHTHALMIC (EYE) BID PRN #10 06/07/21 06/20/21 Rx ml ranolazine 1,000 mg 1,000 mg PO BID #180 tab 06/09/21 06/20/21 Rx tablet,extended release,12 hr (Ranexa) calcitriol 0.25 mcg capsule 0.25 mcg PO 3XWK #45 cap 06/12/21 06/20/21 Rx Oxygen Home #1 ea 06/18/21 06/19/21 Rx amlodipine 5 mg tablet (Norvasc) 10 mg PO QAM tab 06/18/21 06/20/21 History aspirin 81 mg capsule 81 mg PO QAM 06/18/21 06/20/21 History famotidine 20 mg tablet 20 mg PO BID tab 06/18/21 06/20/21 History ferrous sulfate 325 mg (65 mg 325 mg PO QAM 06/18/21 06/20/21 History iron) tablet sertraline 100 mg tablet 100 mg PO QAM tabs 06/18/21 06/20/21 History isosorbide mononitrate 120 mg 120 mg PO QAM tab 06/19/21 06/20/21 History tablet,extended release 24 hr pantoprazole 40 mg tablet,delayed 40 mg PO BID tab 06/19/21 06/20/21 History release sucralfate 1 gram tablet 1 g PO QID PRN tab 06/19/21 06/20/21 History montelukast 10 mg tablet 10 mg PO HS 06/20/21 06/20/21 History Past Med/Surg History Medical History Acute kidney injury superimposed on chronic kidney disease Antiplatelet or antithrombotic long-term use Asymptomatic carotid artery stenosis Bilateral carotid artery disease Bradycardia CAD (coronary artery disease) Carotid stenosis monitors with Dr Bennett Cerebral arterial aneurysm Cerebral arterial aneurysm "small" behind the right ear - monitors only. [place] [facility] [place] Chest pain due to CAD takes Renexa Chronic reflux esophagitis Congestive heart failure newly dx 01/2021 Controlled type 2 diabetes mellitus with kidney complication, with long-term current use of insulin Diabetic peripheral neuropathy Gastroparesis Hepatic cirrhosis non-alcoholic History of anemia History of anesthesia reaction "my blood pressure bottomed out and they had to use medication and the pads to restart my heart during my ovarian mass surgery at [facility]" ~. History of ASCVD History of asthma History of depression Hypercholesterolemia Hypertension Hypothyroidism Intestinal metaplasia of gastric mucosa Irritable bowel syndrome hx Mitral regurgitation Nausea and vomiting after administration of anesthetic agent KEREN (obstructive sleep apnea) cpap at night Osteoarthritis Osteopenia Paroxysmal atrial fibrillation newly dx 01/2021. follows [address] Dr Bennett, treated with medication currently Pulmonary emphysema 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 Surgical History H/O laparoscopy for excision of mass from ovary done at [facility]. ~[id number]. H/O: hysterectomy ISABEL with unilateral oopherectomy History of breast biopsy right (benign) History of cardiac catheterization 12+ years ago, x1 stent prior to CABG August 2019 [facility]-> transferred to [facility] or [facility] x1 stent placed. History of cataract surgery bilateral History of knee replacement left knee Hx of CABG x4 vessels. 12+ years ago. done at [facility]. follows with Dr Bennett Hx of cataract surgery Hx of colonoscopy (~2013) S/P nasal surgery Status post breast reduction bilateral Family History Mother Carotid artery stenosis Breast cancer Heart failure Myocardial infarction Brother Carotid artery stenosis Peripheral vascular disease Stroke syndrome Hx of CABG Sinusitis Asthma Myocardial infarction Environmental allergies Sister Brain cancer Grandmother Myocardial infarction Denies family history of Ovarian cancer Prostate cancer Crohn's disease Bleeding disorder Colorectal cancer Ulcerative colitis Social History Smoking Status: Never smoker Second Hand Exposure: Yes (as a child); Hx Alcohol Use: Yes Alcohol type: wine Alcohol Intake Frequency Comment: rare Hx Substance Use: No Preferred Language: Russian Communication Ability: Effective Visual Impairment: No Limitations Hearing Ability: Normal Steel Sampler Required: No Beliefs That Will Affect Care: None marital status: Current Living Situation: Spouse 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 NAD. Cooperative. Jaundice is present with scleral icterus. HEENT: Atraumatic, normocephalic. PERLAA, vision/hearing grossly intact. Scleral icterus is present Pulm: CTAB A&P. -wheezes, -rales, -rhonchi. Symmetrical chest rise. No increased work of breathing. No respiratory distress. Cardiac: RRR, -mrg. Radial pulses intact and symmetrical. Abdominal:Softly distended, BS intact. Minimal TTP in LLQ without guarding/rebound/rigidity. Splenomegaly is appreciated on palpation. Ext: Intact, atraumatic. Sensation to soft touch in hands and feet intact without asymmetry. 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 PT pulse intact bialterally. Results & Data [facility] Vital Signs (Past 12 Hours) Vital Signs Temp Pulse Pulse Resp BP BP Pulse Ox 06/20/21 13:35 67 16 129/86 97 06/20/21 11:06 66 18 129/86 96 06/20/21 11:04 99 06/20/21 10:24 36.3 C L 92 H 18 151/73 H 94 PG Care Time/CCT Total # of Minutes Spent Total Time Spent with Patient: Total time spent is greater than 50% in coordination of care (as documented) at patient's floor/unit and/or counseling patient: Coding Level of Care Code 97265 Initial Inpt Care Lvl 3 Diagnoses Anemia D64.9 Arteriosclerotic cardiovascular disease (ASCVD) I25.10 Asthma J45.909 Bilateral carotid artery disease I77.9 CAD (coronary artery disease) I25.10 Carotid stenosis I65.29 Controlled type 2 diabetes mellitus with kidney complication, with long-term current use of insulin E11.29; Z79.4 Heart failure with preserved ejection fraction I50.30 Hepatic cirrhosis K74.69 Hepatic cirrhosis type: other cirrhosis Hypercholesterolemia E78.00 Hypertension I10 Hypothyroidism E03.9 Obesity, Class II, BMI 35-39.9 E66.9 Paroxysmal atrial fibrillation I48.0 Pancytopenia D61.818 Splenomegaly R16.1 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 (1) Hepatic cirrhosis Hepatic cirrhosis type: other cirrhosis Qualified Code(s): K74.69 - Other cirrhosis of liver
[2021-06-20] MEDS ORDERED: ONDANSETRON INJ 2 MG/ML 2 ML VIAL IV STA (14:13)
[2021-06-20] MEDS ORDERED: ONDANSETRON INJ 2 MG/ML 2 ML VIAL ONE (14:16)
[2021-06-20] MEDS: PANTOprazole 40 MG in DEXTROSE 5% 100 ML IV SCH ×2 (14:51→21:45)
[2021-06-20] MEDS ORDERED: ONDANSETRON INJ 2 MG/ML 2 ML VIAL IV PRN (18:18)
[2021-06-20] MEDS ORDERED: SUCRALFATE 1 GM TAB PO PRN (18:18)
[2021-06-20] MEDS ORDERED: POLYETHYLENE (MIRALAX) 17 GM PACK PO PRN (18:18)
[2021-06-20] MEDS ORDERED: FEXOFENADINE HCL 180 MG TAB PO PRN (18:18)
[2021-06-20] MEDS ORDERED: FUROSEMIDE 40 MG TAB PO PRN (18:33)
[2021-06-20] MEDS: CALCITRIOL 0.25 MCG CAPSULE PO SCH (20:18)
[2021-06-20] MEDS: METOPROLOL SUCC 25MG EXT REL TAB PO SCH (20:18)
[2021-06-20] MEDS: MONTELUKAST SODIUM 10 MG TABLET PO SCH (20:18)
[2021-06-20] MEDS: methylPREDNISolone 50 MG in SYRINGE 0 ML IV SCH (20:19)
[2021-06-20 22:06] LABS: Hematocrit (blood only) 21.4 % (37-47); Hemoglobin 6.3 g/dL (12.0-16.0); Mean Corpuscular Hemoglobin 28.6 pg (25-34); Mean Corpuscular Hgb Conc 29.4 g/dL (32-36); Mean Corpuscular Volume 97.3 fL (80-100); Mean Platelet Volume 10.4 fL (7.4-10.4); Nucleated RBC # (auto) 0.04 K/uL (0-0); Nucleated RBC % (auto) 2.5 %; Platelet Count 81 K/uL (130-400); RDW Coefficient of Variation 20.7 % (11.5-14.5); RDW Standard Deviation 68.8 fL (36.4-46.3); White Blood Count 1.74 K/uL (4.8-10.8)
[2021-06-20 22:13] LABS: Basophils # (auto) 0.01 K/uL (0-0.2); Basophils % (auto) 0.6 %; Eosinophils # (auto) 0.01 K/uL (0-0.5); Eosinophils % (auto) 0.6 %; Immature Granulocytes # (auto) 0.03 K/uL (0.00-0.02); Immature Granulocytes % (auto) 1.7 %; Lymphocytes # (auto) 0.47 K/uL (1.2-3.4); Monocytes # (auto) 0.07 K/uL (0.11-0.59); Neutrophils # (auto) 1.15 K/uL (1.4-6.5); Neutrophils % (auto) 66.1 %; Polychromasia 1+
[2021-06-20 23:17] LABS: Hematocrit (blood only) 21.4 % (37-47); Hemoglobin 6.4 g/dL (12.0-16.0)
[2021-06-21] MEDS ORDERED: SODIUM CHLORIDE 0.9% 250 ML IV PRN ×2 (00:38→08:55)
[2021-06-21] MEDS: PANTOprazole 40 MG in DEXTROSE 5% 100 ML IV SCH ×2 (02:25→06:15)
[2021-06-21] MEDS: LEVOTHYROXINE SODIUM 88 MCG TABLET PO SCH (06:13)
[2021-06-21 08:24] LABS: Hemoglobin 6.2 g/dL (12.0-16.0); Mean Corpuscular Hgb Conc 29.5 g/dL (32-36); Mean Corpuscular Volume 98.1 fL (80-100); Mean Platelet Volume 10.7 fL (7.4-10.4); Platelet Count 82 K/uL (130-400); RDW Coefficient of Variation 20.8 % (11.5-14.5); RDW Standard Deviation 70.4 fL (36.4-46.3); Red Blood Count 2.14 M/uL (4.2-5.4); White Blood Count 1.97 K/uL (4.8-10.8)
[2021-06-21] MEDS: amLODIPine BESYLATE 5 MG TAB PO SCH (08:36)
[2021-06-21 08:39] LABS: Albumin Globulin Ratio 1.3 (0.9-2); Albumin Level 3.3 gm/dl (3.4-5.0); BUN Creatinine Ratio 15.7 (10-20); Calcium 8.7 mg/dl (8.5-10.1); Creatinine Clr Calc Pharmacy 22.9 ml/min; Est GFR (African American) 23.4 ml/min; Est GFR (Non-African American) 20.2 ml/min; Globulin 2.6 gm/dl (2.5-4.0); Potassium 3.7 mmol/L (3.5-5.1); Total Protein 5.9 gm/dl (6.0-8.3)
[2021-06-21 08:40] LABS: Anisocytosis Present; Hypochromasia Present; Immature Granulocytes # (auto) 0.02 K/uL (0.00-0.02); Lymphocytes # (auto) 0.61 K/uL (1.2-3.4); Monocytes # (auto) 0.05 K/uL (0.11-0.59); Monocytes % (auto) 2.5 %; Neutrophils # (auto) 1.29 K/uL (1.4-6.5); Neutrophils % (auto) 65.5 %; Ovalocytes 1+; Polychromasia 1+
[2021-06-21] MEDS: CALCIUM 600MG + VIT D 400 IU TAB PO SCH (08:50)
[2021-06-21] MEDS: FAMOTIDINE 20 MG TAB PO SCH (08:50)
[2021-06-21] MEDS: ASPIRIN 81 MG ECTAB PO SCH (08:50)
[2021-06-21] MEDS: ISOSORBIDE MONO EXTENDED REL 60 MG TABCR PO SCH (08:51)
[2021-06-21] MEDS: FLUTICASONE/VILANTEROL 200/25MCG 14 PUFFS/INHALER INH SCH (08:51)
[2021-06-21] MEDS: METOPROLOL SUCC 25MG EXT REL TAB PO SCH ×2 (08:52→20:29)
[2021-06-21] MEDS: SERTRALINE HCL 100 MG TABLET PO SCH (08:52)
[2021-06-21] MEDS: UMECLIDINIUM BROMIDE 62.5MCG/BLISTER 7 PUFFS/INHALER INH SCH (08:52)
[2021-06-21] MEDS ORDERED: FUROSEMIDE 40 MG TAB PO SCH (09:00)
--- NOTE | 2021-06-21 09:25 | Gastrointestinal Consultation ---
Date of Consultation June 21, 2021 Assessment & Plan (1) Anemia: -Hematology consult given concern for hemolysis -Continue to monitor H/H -No overt GI bleeding and recent EGD unremarkable. She takes BID PPI therapy at home and we will continue this here. No plans for endoscopic evaluation at the present time. (2) Cirrhosis: -INR 1.1 -Bilirubin trending down to 3, but no direct obtained today so will order -Stable liver imaging -This does not appear to be acute liver failure; bilirubin may be related to possible hemolytic process -Patient to continue her outpatient cirrhosis monitoring Supervising Physician Co-Signing Physician Notes I personally evaluated the patient and agree with the findings as documented by Juli Brennan, GUILLERMINA Exam: Constitutional: WD/WN, vitals as above General: EOM intact bilaterally Neck: normal visual inspection Respiratory: normal respiratory effort, lungs clear to auscultation Cardiovascular: RRR, no murmur, no edema Gastrointestinal: abdomennormal to inspection, nondistended, soft, nontender, no hepatosplenomegaly Musculoskeletal: no cyanosis, head normal to inspection Skin: no rashes, warm and dry Neurologic: moves all extremities Psychiatric: A and O x3, euthymic affect History of Present Illness Reason for Consultation: Anemia, Cirrhosis Attending Physician: Nate Parnell MD History of Present Illness Patient is a 71 yo female with PMH of cirrhosis presumably 2/2 fatty liver, hyperparathyroidism, CKD4, pulmonary emphysema, hypothyroidism, HTN, HLD, DM2, esophagitis, A fib on chronic anticoagulation, mitral regurgitation, cerebral arterial aneurysm, and CAD. The patient is well-known to our outpatient clinic due to her stable cirrhosis. She was recently seen in March 2021 at which time her hepatocellular carcinoma screenings were unremarkable, liver disease was compensated, labs were stable, & EGD was negative for esophageal varices. She notes that she found herself progressively more tired recently. She reportedly had an episode of syncope several weeks ago and was taken to [facility] and admitted for symptomatic anemia. She was seen by [facility] at that time and did not undergo any further endoscopic evaluation. She was eventually discharged for outpatient follow-up (though she mentions she "checked herself out."). She was seen in outpatient clinic by her end polisher recently and was encouraged to see inpatient admission due to her anemia. She is not experiencing abdominal pain, hematemesis, hematochezia, or melena. EGD in March 2021 was unremarkable for abnormalities. She is on Protonix 40 mg BID at home. She also is anticoagulated on Eliquis. Upon presentation to [facility], her total bilirubin was 9 which initially concerned the hospitalist service for liver abnormalities. She was jaundiced. INR however has been unremarkable at 1.[address] imaging of the liver indicates stability. LFTs are otherwise unremarkable as well. H/H 6.2/21.0. Platelets 82,000. WBC 1,970. A direct antiglobulin was checked and was positive. She was apparently initiated on steroids at that time. Today, her total bilirubin is now 3.0. INR still unremarkable. Abdominal exam unremarkable. Allergies Allergy/AdvReac Type Severity Reaction Status Date / Time levofloxacin Allergy Intermediate rash Verified 06/20/21 12:35 enalapril Allergy Unknown DRY COUGH Verified 06/20/21 12:35 insulin detemir Allergy Unknown HIVES Verified 06/20/21 12:35 enalaprilat [From Vasotec] Allergy Unknown Verified 06/20/21 12:35 Home Medications Medication Instructions Recorded Confirmed Type calcium carbonate 600 mg-vitamin 1 tab PO QAM 08/27/18 06/20/21 History D3 20 mcg (800 unit) chewable tablet (Caltrate 600 plus D) fexofenadine 180 mg tablet 180 mg PO DAILY PRN 08/27/18 06/20/21 History (Chelsie Allergy) ipratropium bromide 21 mcg (0.03 1 spray INTRANASAL UD PRN 08/27/18 06/20/21 History %) nasal spray tramadol 50 mg tablet 50 mg PO Q6H PRN #60 tab 09/04/18 06/20/21 Rx blood sugar diagnostic (FreeStyle ea 03/15/19 06/19/21 History Test) Omnipod Classic Pods (Gen 3) #180 ea NS 01/19/20 06/19/21 Rx (insulin pump cartridge) Omnipod Dash Pods (Gen 4) (insulin #90 ea NS 08/16/20 06/19/21 Rx pump cartridge) levothyroxine 88 mcg tablet 88 mcg PO QAM #90 tab 02/01/21 06/20/21 Rx cholecalciferol (vitamin D3) 25 25 mcg PO QAM 03/09/21 06/20/21 History mcg (1,000 unit) tablet cyanocobalamin (vitamin B-12) 500 1,000 mcg PO QAM 03/09/21 06/20/21 History mcg tablet rosuvastatin 40 mg tablet 40 mg PO QAM 03/09/21 06/20/21 History sodium bicarbonate 650 mg tablet 650 mg PO QAM 03/09/21 06/20/21 History insulin aspart U-100 100 unit/mL 230 unit SUBCUT DAILY 90 Days #207 03/13/21 06/20/21 Rx subcutaneous solution (Novolog ml U-100 Insulin aspart) blood-glucose sensor (Dexcom G6 #1 ea 03/21/21 06/19/21 Rx Sensor) apixaban 5 mg tablet 5 mg PO BID #180 tab 05/30/21 06/20/21 Rx gabapentin 100 mg capsule 100 mg PO BID #180 cap 06/05/21 06/20/21 Rx spironolactone 100 mg tablet 100 mg PO QAM #90 tab 06/06/21 06/20/21 Rx tiotropium bromide 18 mcg capsule 1 cap INHALATION QAM 90 Days #90 06/06/21 06/20/21 Rx with inhalation device (Spiriva inh with HandiHaler) trazodone 50 mg tablet 50 mg PO HS #90 tab 06/06/21 06/20/21 Rx albuterol sulfate 90 mcg/actuation 2 puff INHALATION Q4 PRN #54 g 06/07/21 06/20/21 Rx aerosol inhaler (Ventolin HFA) fluticasone furoate 200 1 inh INH QAM #180 ea 06/07/21 06/20/21 Rx mcg-vilanterol 25 mcg/dose inhalation powder (Breo Ellipta) furosemide 40 mg tablet (Lasix) 40 mg PO QAM #120 tab 06/07/21 06/20/21 Rx levalbuterol HCl 1.25 mg/3 mL 1.25 mg INHALATION TID PRN #810 ml 06/07/21 06/20/21 Rx solution for nebulization metoprolol succinate 50 mg 75 mg PO BID #270 tab 06/07/21 06/20/21 Rx tablet,extended release 24 hr nitroglycerin 0.4 mg sublingual 0.4 mg SUBLINGUAL Q5M PRN #30 tab 06/07/21 06/20/21 Rx tablet olopatadine 0.1 % eye drops 1 drp OPHTHALMIC (EYE) BID PRN #10 06/07/21 06/20/21 Rx ml ranolazine 1,000 mg 1,000 mg PO BID #180 tab 06/09/21 06/20/21 Rx tablet,extended release,12 hr (Ranexa) calcitriol 0.25 mcg capsule 0.25 mcg PO 3XWK #45 cap 06/12/21 06/20/21 Rx Oxygen Home #1 ea 06/18/21 06/19/21 Rx amlodipine 5 mg tablet (Norvasc) 10 mg PO QAM tab 06/18/21 06/20/21 History aspirin 81 mg capsule 81 mg PO QAM 06/18/21 06/20/21 History famotidine 20 mg tablet 20 mg PO BID tab 06/18/21 06/20/21 History ferrous sulfate 325 mg (65 mg 325 mg PO QAM 06/18/21 06/20/21 History iron) tablet sertraline 100 mg tablet 100 mg PO QAM tabs 06/18/21 06/20/21 History isosorbide mononitrate 120 mg 120 mg PO QAM tab 06/19/21 06/20/21 History tablet,extended release 24 hr pantoprazole 40 mg tablet,delayed 40 mg PO BID tab 06/19/21 06/20/21 History release sucralfate 1 gram tablet 1 g PO QID PRN tab 06/19/21 06/20/21 History montelukast 10 mg tablet 10 mg PO HS 06/20/21 06/20/21 History Patient History Medical History Acute kidney injury superimposed on chronic kidney disease Antiplatelet or antithrombotic long-term use Asymptomatic carotid artery stenosis Bilateral carotid artery disease Bradycardia CAD (coronary artery disease) Carotid stenosis monitors with Dr Bennett Cerebral arterial aneurysm Cerebral arterial aneurysm "small" behind the right ear - monitors only. [place] [facility] Chest pain due to CAD takes Renexa Chronic reflux esophagitis Congestive heart failure newly dx 01/2021 Controlled type 2 diabetes mellitus with kidney complication, with long-term current use of insulin Diabetic peripheral neuropathy Gastroparesis Hepatic cirrhosis non-alcoholic History of anemia History of anesthesia reaction "my blood pressure bottomed out and they had to use medication and the pads to restart my heart during my ovarian mass [place] at [facility] [place]" ~. History of ASCVD History of asthma History of depression Hypercholesterolemia Hypertension Hypothyroidism Intestinal metaplasia of gastric mucosa Irritable bowel syndrome hx Mitral regurgitation Nausea and vomiting after administration of anesthetic agent KEREN (obstructive sleep apnea) cpap at night Osteoarthritis Osteopenia Paroxysmal atrial fibrillation newly dx 01/2021. 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 ~[id number]. H/O: hysterectomy ISABEL with unilateral oopherectomy History of breast biopsy right (benign) History of cardiac catheterization 12+ years ago, x1 stent prior to CABG August 2019 [facility]-> transferred [place] [facility] or [facility] x1 stent placed. History of cataract surgery bilateral History of knee replacement left knee Hx of CABG x4 vessels. 12+ years ago. done at [facility] [place]. follows with Dr Bennett Hx of cataract surgery Hx of colonoscopy (~2013) S/P nasal surgery Status post breast reduction bilateral Family History Mother Carotid artery stenosis Breast cancer Heart failure Myocardial infarction Brother Carotid artery stenosis Peripheral vascular disease Stroke syndrome Hx of CABG Sinusitis Asthma Myocardial infarction Environmental allergies Sister Brain cancer Grandmother Myocardial infarction Denies family history of Ovarian cancer Prostate cancer Crohn's disease Bleeding disorder Colorectal cancer Ulcerative colitis Social History Smoking Status: Never smoker Second Hand Exposure: Yes (as a child); Hx Alcohol Use: Yes Alcohol type: wine Alcohol Intake Frequency Comment: rare Hx Substance Use: No Preferred Language: Greenlandic Communication Ability: Effective Visual Impairment: No Limitations Hearing Ability: Normal Medical Resident Required: No Beliefs That Will Affect Care: None marital status: Current Living Situation: Spouse 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 How many Children do You have: 1 Other Information That Helps Us Care for You: No Feels Safe at Home: Yes Safety Concerns: Feels Safe At This Time Childhood Exposure to Second-Hand Smoke: Yes Dental Care, Regularly: Yes Physical Activity Frequency: Does not Exercise Seatbelt Use: always Sunscreen Use: Yes Assistive Devices: CPAP and Oxygen - Continuous Assistive Devices Comment: reading glasses Review of Systems Constitutional: no fever and no chills Respiratory: no cough and no dyspnea Cardiovascular: no chest pain Gastrointestinal: no abdominal pain, no hematemesis, no blood in stools and no melena Integumentary: + yellowing of the skin Psychiatric: no problem reported Hematologic / Lymphatic: no unexplained weight loss Physical Exam Constitutional: well developed Respiratory: normal respiratory effort Cardiovascular: Rate/Rhythm: regular rate Gastrointestinal (Abdomen): Inspection/Auscultation: abdomen normal to inspection Musculoskeletal: Head/Neck/Chest: normocephalic Skin: + jaundice Psychiatric: Orientation: alert and oriented x 3 Results & Data ([facility]) Vital Signs (Past 12 Hours) Vital Signs Temp Pulse Pulse Resp BP Pulse Ox 06/21/21 06:41 36.5 C 62 20 125/46 L 100 06/21/21 03:56 36.5 C 59 L 20 124/63 99 06/20/21 23:14 67 06/20/21 22:00 36.9 C 67 20 147/63 H 99 PG Care Time/CCT Total # of Minutes Spent Total Time Spent with Patient: Total time spent is greater than 50% in coordination of care (as documented) at patient's floor/unit and/or counseling patient: Coding Level of Care Code 62931 Initial Inpt Care Lvl 3 Diagnoses Anemia D64.9 Cirrhosis K74.60
[2021-06-21 10:31] LABS: Bilirubin Direct 1.1 mg/dl (0-0.2)
[2021-06-21] MEDS ORDERED: PHARMACY GLYCEMIC MGMT CONSULT PRN (10:44)
[2021-06-21] MEDS ORDERED: DEXTROSE 50% 50 ML SYRINGE IV PRN (11:15)
[2021-06-21] MEDS ORDERED: GLUCAGON FOR INJ 1 MG VIAL IM PRN (11:15)
[2021-06-21] MEDS ORDERED: GLUCOSE 10 TABS/TUBE PO PRN (11:15)
[2021-06-21] MEDS ORDERED: GLUCOSE 40% GEL 15 GM TUBE PO PRN (11:15)
[2021-06-21] MEDS ORDERED: CARBOHYDRATES FOR HYPOGLYCEMIA PO PRN (11:15)
[2021-06-21] MEDS ORDERED: INSULIN ASPART PER UNIT SC SCH (11:30)
[2021-06-21] MEDS ORDERED: INSULIN ASPART 100 UNITS/ML VIAL SC PRN (11:45)
[2021-06-21] MEDS: methylPREDNISolone 50 MG in SYRINGE 0 ML IV SCH ×2 (14:17→23:15)
[2021-06-21] MEDS: NovoLOG INSULIN PUMP SCH ×3 (14:17→23:12)
--- NOTE | 2021-06-21 15:12 | Emergency Department Note ---
Impression & Plan Anemia, Cirrhosis, Jaundice, Insulin dependent diabetes mellitus, Splenomegaly ED Provider Note CHIEF COMPLAINT: Jaundice, anemia HISTORY OF PRESENT ILLNESS: This 71-year-old female patient presents to the emergency department with complaints of anemia and abnormal laboratory work. She was sent over by her gamma facilities operator, Dr Bennett for further evaluation. Patient has a history of nonalcoholic cirrhosis of liver insulin-dependent diabetes, coronary artery disease and congestive heart failure. Patient was recently admitted to the [facility] and received blood transfusions. She stated they were unable to identify the source of the blood loss. Her follow-up was today she was thus referred to the emergency department with anemia once again. Patient states that she is short of breath and nauseated, feels generally lousy. She has had no fevers, chills, vomiting or diarrhea. Patient has had loose stools but denies blood. admits that she is yellow in appearance. Blood sugars have been difficult to control and the patient's had several lows because she has not been eating much lately. REVIEW OF SYSTEMS: A review of systems was performed with positives and pertinent negatives listed in the history of present illness. 10 systems were reviewed and are otherwise negative. ALLERGIES: see below MEDICATIONS: see below PMH: see below SOCIAL HISTORY: see below DDx: Infection, dehydration, metabolic abnormality, hypo/hyperglycemia, electrolyte disturbance, anemia, GI bleed, hemolysis, biliary obstruction, hypoxia, cardiac sources, intracerebral event, toxicologic, neurologic, as well as other pathologies. PHYSICAL EXAM: Vital signs reviewed. General: Chronically ill-appearing 71-year-old female, in no significant distress. HEENT: Positive scleral icterus, PERRLA, neck supple. Moist mucous membranes Cardiovascular: Regular rate and rhythm, no extra sounds. Pulmonary: Clear to auscultation bilaterally, normal work of breathing. Abdomen: Soft, obese, mildly tender to palpation in the bilateral upper quadrants without rebound or guarding, nondistended, positive bowel sounds. Musculoskeletal: Atraumatic, no peripheral edema. Rectal: Guaiac positive dark stool not clearly melanotic however yellowish- orange. No gross blood. Normal external rectal mucosa. Neurologic: Patient awake alert and oriented x 3, speech is clear Skin: Warm, dry, no rash EMERGENCY DEPARTMENT COURSE/MDM: Patient was evaluated and appeared to be in no significant distress. IV access was obtained and laboratory work was drawn. Patient was placed on the monitor car operator and noted to be in a sinus rhythm. The patient seemingly stable on exam. Laboratory work was reviewed and the bilirubin is 9.2, hemoglobin is 7.3. She was typed and crossed. Stool is guaiac positive. Patient was typed and crossed for 2 units. Blood consent was signed. The patient does have antibodies in the blood and will require blood products from the blood bank at the outside facility. CT imaging of the abdomen pelvis was performed and is significant for splenomegaly and peritoneal infiltrative process without specific etiology. This is likely inflammatory. Patient's case was discussed with the hospitalist service. Patient will be evaluated for admission and further management. Both the patient and her were made aware of the plan and agreed. MONITORING: An order for cardiac monitoring was placed and the patient is noted to be in a sinus rhythm with sinus arrhythmia beats at 66 per minute. RADIOLOGY: See below EKG: Sinus rhythm with sinus arrhythmia at [address] and T wave abnormalities. No PVC, no PAC. DISPOSITION: Admission Past Med/Surg History Medical History Acute kidney injury superimposed on chronic kidney disease Antiplatelet or antithrombotic long-term use Asymptomatic carotid artery stenosis Bilateral carotid artery disease Bradycardia CAD (coronary artery disease) Carotid stenosis monitors with Dr Bennett Cerebral arterial aneurysm Cerebral arterial aneurysm "small" behind the right ear - monitors only. followed with [facility] neurology Chest pain due to CAD takes Renexa Chronic reflux esophagitis Congestive heart failure newly dx 01/2021 Controlled type 2 diabetes mellitus with kidney complication, with long-term current use of insulin Diabetic peripheral neuropathy Gastroparesis Hepatic cirrhosis non-alcoholic History of anemia History of anesthesia reaction "my blood pressure bottomed out and they had to use medication and the pads to restart my heart during my ovarian mass surgery at [facility]" ~. History of ASCVD History of asthma History of depression Hypercholesterolemia Hypertension Hypothyroidism Intestinal metaplasia of gastric mucosa Irritable bowel syndrome hx Mitral regurgitation Nausea and vomiting after administration of anesthetic agent KEREN (obstructive sleep apnea) cpap at night Osteoarthritis Osteopenia Paroxysmal atrial fibrillation newly dx 01/2021. 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 ~[id number]. H/O: hysterectomy ISABEL with unilateral oopherectomy History of breast biopsy right (benign) History of cardiac catheterization 12+ years ago, x1 stent prior to CABG August 2019 [facility] transferred to [facility] x1 stent placed. History of cataract surgery bilateral History of knee replacement left knee Hx of CABG x4 vessels. 12+ years ago. done at [facility]. [place] with Dr Bennett Hx of cataract surgery Hx of colonoscopy (~2013) S/P nasal surgery Status post breast reduction bilateral Family History Mother Carotid artery stenosis Breast cancer Heart failure Myocardial infarction Brother Carotid artery stenosis Peripheral vascular disease Stroke syndrome Hx of CABG Sinusitis Asthma Myocardial infarction Environmental allergies Sister Brain cancer Grandmother Myocardial infarction Denies family history of Ovarian cancer Prostate cancer Crohn's disease Bleeding disorder Colorectal cancer Ulcerative colitis Social History Smoking Status: Never smoker Second Hand Exposure: Yes (as a child); Hx Alcohol Use: Yes Alcohol type: wine Alcohol Intake Frequency Comment: rare Hx Substance Use: No Preferred Language: Spanish Communication Ability: Effective Visual Impairment: No Limitations Hearing Ability: Normal Clinical Specialty Rep Required: No Beliefs That Will Affect Care: None marital status: Current Living Situation: Spouse 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 How many Children do You have: 1 Feels Safe at Home: Yes Childhood Exposure to Second-Hand Smoke: Yes Dental Care, Regularly: Yes Physical Activity Frequency: Does not Exercise Seatbelt Use: always Sunscreen Use: Yes Assistive Devices: CPAP and Oxygen - Continuous Allergies Allergies Allergy/AdvReac Type Severity Reaction Status Date / Time levofloxacin Allergy Intermediate rash Verified 06/20/21 12:35 enalapril Allergy Unknown DRY COUGH Verified 06/20/21 12:35 insulin detemir Allergy Unknown HIVES Verified 06/20/21 12:35 enalaprilat [From Vasotec] Allergy Unknown Verified 06/20/21 12:35 Home Meds Home Medications Medication Instructions Recorded Confirmed calcium carbonate 600 mg-vitamin 1 tab PO QAM 08/27/18 06/20/21 D3 20 mcg (800 unit) chewable tablet (Caltrate 600 plus D) fexofenadine 180 mg tablet 180 mg PO DAILY PRN 08/27/18 06/20/21 (Chelsie Allergy) ipratropium bromide 21 mcg (0.03 1 spray INTRANASAL UD PRN 08/27/18 06/20/21 %) nasal spray blood sugar diagnostic (Cristobal ea 03/15/19 06/19/21 Test) cholecalciferol (vitamin D3) 25 25 mcg PO QAM 03/09/21 06/20/21 mcg (1,000 unit) tablet cyanocobalamin (vitamin B-12) 500 1,000 mcg PO QAM 03/09/21 06/20/21 mcg tablet rosuvastatin 40 mg tablet 40 mg PO QAM 03/09/21 06/20/21 sodium bicarbonate 650 mg tablet 650 mg PO QAM 03/09/21 06/20/21 amlodipine 5 mg tablet (Norvasc) 10 mg PO QAM tab 06/18/21 06/20/21 aspirin 81 mg capsule 81 mg PO QAM 06/18/21 06/20/21 famotidine 20 mg tablet 20 mg PO BID tab 06/18/21 06/20/21 ferrous sulfate 325 mg (65 mg 325 mg PO QAM 06/18/21 06/20/21 iron) tablet sertraline 100 mg tablet 100 mg PO QAM tabs 06/18/21 06/20/21 isosorbide mononitrate 120 mg 120 mg PO QAM tab 06/19/21 06/20/21 tablet,extended release 24 hr pantoprazole 40 mg tablet,delayed 40 mg PO BID tab 06/19/21 06/20/21 release sucralfate 1 gram tablet 1 g PO QID PRN tab 06/19/21 06/20/21 montelukast 10 mg tablet 10 mg PO HS 06/20/21 06/20/21 Previous Rx's Medication Instructions Recorded tramadol 50 mg tablet 50 mg PO Q6H PRN #60 tab 09/04/18 levothyroxine 88 mcg tablet 88 mcg PO QAM #90 tab 02/01/21 insulin aspart U-100 100 unit/mL 230 unit SUBCUT DAILY 90 Days #207 03/13/21 subcutaneous solution (Novolog ml U-100 Insulin aspart) blood-glucose sensor (Entrenarmecom G6 #1 ea 03/21/21 Sensor) apixaban 5 mg tablet 5 mg PO BID #180 tab 05/30/21 spironolactone 100 mg tablet 100 mg PO QAM #90 tab 06/06/21 tiotropium bromide 18 mcg capsule 1 cap INHALATION QAM 90 Days #90 06/06/21 with inhalation device (Spiriva inh with HandiHaler) trazodone 50 mg tablet 50 mg PO HS #90 tab 06/06/21 albuterol sulfate 90 mcg/actuation 2 puff INHALATION Q4 PRN #54 g 06/07/21 aerosol inhaler (Ventolin HFA) fluticasone furoate 200 1 inh INH QAM #180 ea 06/07/21 mcg-vilanterol 25 mcg/dose inhalation powder (Breo Ellipta) furosemide 40 mg tablet (Lasix) 40 mg PO QAM #120 tab 06/07/21 levalbuterol HCl 1.25 mg/3 mL 1.25 mg INHALATION TID PRN #810 ml 06/07/21 solution for nebulization metoprolol succinate 50 mg 75 mg PO BID #270 tab 06/07/21 tablet,extended release 24 hr nitroglycerin 0.4 mg sublingual 0.4 mg SUBLINGUAL Q5M PRN #30 tab 06/07/21 tablet olopatadine 0.1 % eye drops 1 drp OPHTHALMIC (EYE) BID PRN #10 06/07/21 ml calcitriol 0.25 mcg capsule 0.25 mcg PO 3XWK #45 cap 06/12/21 Oxygen Home #1 ea 06/18/21 prednisone 50 mg tablet 100 mg PO DAILY 7 Days #14 tab 06/23/21 Omnipod Dash Pods (Gen 4) (insulin #90 ea NS 06/26/21 pump cart,cont inf,BT) Results & Data (ED) Home Medications Current Medication List: was personally reviewed by me Laboratory Data Attestation: I reviewed the patient's lab results. Result diagrams: 06/23/21 05:30 06/23/21 05:30 Lab Results 06/20/21 06/20/21 06/20/21 Range/Units 10:54 10:54 10:54 WBC 2.60 L (4.8-10.8) K/uL RBC 2.55 L (4.2-5.4) M/uL Hgb 7.3 L (12.0-16.0) g/dL Hct 24.9 L (37-47) % MCV 97.6 (80-100) fL MCH 28.6 (25-34) pg MCHC 29.3 L (32-36) g/dL RDW Std Deviation 68.4 H (36.4-46.3) fL RDW Coeff of Gomez 20.2 H (11.5-14.5) % Plt Count 90 L (130-400) K/uL MPV 10.7 H (7.4-10.4) fL Immature Gran % (Auto) 1.2 % Neut % (Auto) 54.8 % Lymph % (Auto) 30.8 % Graves % (Auto) 11.2 % Eos % (Auto) 1.2 % Baso % (Auto) 0.8 % Neut # (Auto) 1.43 (1.4-6.5) K/uL Lymph # (Auto) 0.80 L (1.2-3.4) K/uL Graves # (Auto) 0.29 (0.11-0.59) K/uL Eos # (Auto) 0.03 (0-0.5) K/uL Baso # (Auto) 0.02 (0-0.2) K/uL Immature Gran # (Auto) 0.03 H (0.00-0.02) K/uL Absolute Nucleated RBC 0.04 H (0-0) K/uL Nucleated RBC % (auto) 1.7 % Polychromasia 1+ Hypochromasia Present Anisocytosis Present Ovalocytes 1+ Peripher Smr Path Cons Haptoglobin (43-212) mg/dL PT 11.5 (9.0-12.0) Seconds INR 1.1 (0.9-1.1) APTT 26.0 (21.0-31.0) Seconds PTT Ratio 0.9 Sodium 139 (136-145) mmol/L Potassium 3.7 (3.5-5.1) mmol/L Chloride 106 (98-107) mmol/L Carbon Dioxide 25 (21-32) mmol/L Anion Gap 8 (3-11) BUN 40 H (6-23) mg/dl Creatinine 2.68 H (0.6-1.2) mg/dl Est Cr Clr Drug Dosing Not Reportable Est GFR ( Amer) 20.1 ml/min Est GFR (Non-Af Amer) 17.3 ml/min BUN/Creatinine Ratio 14.9 (10-20) Glucose 117 H (70-99(Fasting)) mg/dl POC Glucose (70-99) mg/dl Calcium 8.8 (8.5-10.1) mg/dl Total Bilirubin 9.2 H (0.2-1.0) mg/dl Direct Bilirubin (0-0.2) mg/dl AST 71 H (13-39) U/L ALT 80 H (7-52) U/L Alkaline Phosphatase 222 H (34-104) U/L Ammonia (18-72) umol/L Lactate Dehydrogenase Total Protein 6.6 (6.0-8.3) gm/dl Albumin 3.7 (3.4-5.0) gm/dl Globulin 2.9 (2.5-4.0) gm/dl Albumin/Globulin Ratio 1.3 (0.9-2) Yalki-7-Ggfckrihbqs (83-199) mg/dL Blood Type Antibody Screen Antibody Identification Antibody ID Referred Antibody ID Comment Direct Antiglob Test (Negative) MARIBELL (IgG-AHG) (Negative) MARIBELL, Polyspecific (Negative) MARIBELL C3b, C3d 5 Min (Negative) Crossmatch 06/20/21 06/20/21 06/20/21 Range/Units 10:54 10:54 10:54 WBC (4.8-10.8) K/uL RBC (4.2-5.4) M/uL Hgb (12.0-16.0) g/dL Hct (37-47) % MCV (80-100) fL MCH (25-34) pg MCHC (32-36) g/dL RDW Std Deviation (36.4-46.3) fL RDW Coeff of Gomez (11.5-14.5) % Plt Count (130-400) K/uL MPV (7.4-10.4) fL Immature Gran % (Auto) % Neut % (Auto) % Lymph % (Auto) % Graves % (Auto) % Eos % (Auto) % Baso % (Auto) % Neut # (Auto) (1.4-6.5) K/uL Lymph # (Auto) (1.2-3.4) K/uL Graves # (Auto) (0.11-0.59) K/uL Eos # (Auto) (0-0.5) K/uL Baso # (Auto) (0-0.2) K/uL Immature Gran # (Auto) (0.00-0.02) K/uL Absolute Nucleated RBC (0-0) K/uL Nucleated RBC % (auto) % Polychromasia Hypochromasia Anisocytosis Ovalocytes Peripher Smr Path Cons Cancelled Haptoglobin <8 L (43-212) mg/dL PT (9.0-12.0) Seconds INR (0.9-1.1) APTT (21.0-31.0) Seconds PTT Ratio Sodium (136-145) mmol/L Potassium (3.5-5.1) mmol/L Chloride (98-107) mmol/L Carbon Dioxide (21-32) mmol/L Anion Gap (3-11) BUN (6-23) mg/dl Creatinine (0.6-1.2) mg/dl Est Cr Clr Drug Dosing Est GFR ( Amer) ml/min Est GFR (Non-Af Amer) ml/min BUN/Creatinine Ratio (10-20) Glucose (70-99(Fasting)) mg/dl POC Glucose (70-99) mg/dl Calcium (8.5-10.1) mg/dl Total Bilirubin (0.2-1.0) mg/dl Direct Bilirubin 2.7 H (0-0.2) mg/dl AST (13-39) U/L ALT (7-52) U/L Alkaline Phosphatase (34-104) U/L Ammonia (18-72) umol/L Lactate Dehydrogenase Total Protein (6.0-8.3) gm/dl Albumin (3.4-5.0) gm/dl Globulin (2.5-4.0) gm/dl Albumin/Globulin Ratio (0.9-2) Ovvsx-3-Fmstwwmcfgh (83-199) mg/dL Blood Type Antibody Screen Antibody Identification Antibody ID Referred Antibody ID Comment Direct Antiglob Test (Negative) MARIBELL (IgG-AHG) (Negative) MARIBELL, Polyspecific (Negative) MARIBELL C3b, C3d 5 Min (Negative) Crossmatch 06/20/21 06/20/21 06/20/21 Range/Units 11:02 11:54 13:06 WBC (4.8-10.8) K/uL RBC (4.2-5.4) M/uL Hgb (12.0-16.0) g/dL Hct (37-47) % MCV (80-100) fL MCH (25-34) pg MCHC (32-36) g/dL RDW Std Deviation (36.4-46.3) fL RDW Coeff of Gomez (11.5-14.5) % Plt Count (130-400) K/uL MPV (7.4-10.4) fL Immature Gran % (Auto) % Neut % (Auto) % Lymph % (Auto) % Graves % (Auto) % Eos % (Auto) % Baso % (Auto) % Neut # (Auto) (1.4-6.5) K/uL Lymph # (Auto) (1.2-3.4) K/uL Graves # (Auto) (0.11-0.59) K/uL Eos # (Auto) (0-0.5) K/uL Baso # (Auto) (0-0.2) K/uL Immature Gran # (Auto) (0.00-0.02) K/uL Absolute Nucleated RBC (0-0) K/uL Nucleated RBC % (auto) % Polychromasia Hypochromasia Anisocytosis Ovalocytes Peripher Smr Path Cons Haptoglobin (43-212) mg/dL PT (9.0-12.0) Seconds INR (0.9-1.1) APTT (21.0-31.0) Seconds PTT Ratio Sodium (136-145) mmol/L Potassium (3.5-5.1) mmol/L Chloride (98-107) mmol/L Carbon Dioxide (21-32) mmol/L Anion Gap (3-11) BUN (6-23) mg/dl Creatinine (0.6-1.2) mg/dl Est Cr Clr Drug Dosing Est GFR ( Amer) ml/min Est GFR (Non-Af Amer) ml/min BUN/Creatinine Ratio (10-20) Glucose (70-99(Fasting)) mg/dl POC Glucose 121 H (70-99) mg/dl Calcium (8.5-10.1) mg/dl Total Bilirubin (0.2-1.0) mg/dl Direct Bilirubin (0-0.2) mg/dl AST (13-39) U/L ALT (7-52) U/L Alkaline Phosphatase (34-104) U/L Ammonia 34.0 (18-72) umol/L Lactate Dehydrogenase Total Protein (6.0-8.3) gm/dl Albumin (3.4-5.0) gm/dl Globulin (2.5-4.0) gm/dl Albumin/Globulin Ratio (0.9-2) Hfnkr-8-Ozhamaynnia (83-199) mg/dL Blood Type A Positive Antibody Screen POSITIVE A Antibody Identification Anti-S Antibody ID Referred Antibody ID Comment Cancelled Direct Antiglob Test Positive A (Negative) MARIBELL (IgG-AHG) Weak Pos A (Negative) MARIBELL, Polyspecific Weak Pos A (Negative) MARIBELL C3b, C3d 5 Min Neg (Negative) Crossmatch See Detail 06/20/21 06/20/21 06/20/21 Range/Units 13:08 14:14 14:56 WBC (4.8-10.8) K/uL RBC (4.2-5.4) M/uL Hgb (12.0-16.0) g/dL Hct (37-47) % MCV (80-100) fL MCH (25-34) pg MCHC (32-36) g/dL RDW Std Deviation (36.4-46.3) fL RDW Coeff of Gomez (11.5-14.5) % Plt Count (130-400) K/uL MPV (7.4-10.4) fL Immature Gran % (Auto) % Neut % (Auto) % Lymph % (Auto) % Graves % (Auto) % Eos % (Auto) % Baso % (Auto) % Neut # (Auto) (1.4-6.5) K/uL Lymph # (Auto) (1.2-3.4) K/uL Graves # (Auto) (0.11-0.59) K/uL Eos # (Auto) (0-0.5) K/uL Baso # (Auto) (0-0.2) K/uL Immature Gran # (Auto) (0.00-0.02) K/uL Absolute Nucleated RBC (0-0) K/uL Nucleated RBC % (auto) % Polychromasia Hypochromasia Anisocytosis Ovalocytes Peripher Smr Path Cons Haptoglobin (43-212) mg/dL PT (9.0-12.0) Seconds INR (0.9-1.1) APTT (21.0-31.0) Seconds PTT Ratio Sodium (136-145) mmol/L Potassium (3.5-5.1) mmol/L Chloride (98-107) mmol/L Carbon Dioxide (21-32) mmol/L Anion Gap (3-11) BUN (6-23) mg/dl Creatinine (0.6-1.2) mg/dl Est Cr Clr Drug Dosing Est GFR ( Amer) ml/min Est GFR (Non-Af Amer) ml/min BUN/Creatinine Ratio (10-20) Glucose (70-99(Fasting)) mg/dl POC Glucose 104 H (70-99) mg/dl Calcium (8.5-10.1) mg/dl Total Bilirubin (0.2-1.0) mg/dl Direct Bilirubin (0-0.2) mg/dl AST (13-39) U/L ALT (7-52) U/L Alkaline Phosphatase (34-104) U/L Ammonia (18-72) umol/L Lactate Dehydrogenase Cancelled Total Protein (6.0-8.3) gm/dl Albumin (3.4-5.0) gm/dl Globulin (2.5-4.0) gm/dl Albumin/Globulin Ratio (0.9-2) Fumpv-2-Hlrtqogfdfw (83-199) mg/dL Blood Type Antibody Screen Antibody Identification Antibody ID Referred Antibody ID Comment Direct Antiglob Test (Negative) MARIBELL (IgG-AHG) (Negative) MARIBELL, Polyspecific (Negative) MARIBELL C3b, C3d 5 Min (Negative) Crossmatch 06/20/21 Range/Units 14:57 WBC (4.8-10.8) K/uL RBC (4.2-5.4) M/uL Hgb (12.0-16.0) g/dL Hct (37-47) % MCV (80-100) fL MCH (25-34) pg MCHC (32-36) g/dL RDW Std Deviation (36.4-46.3) fL RDW Coeff of Gomez (11.5-14.5) % Plt Count (130-400) K/uL MPV (7.4-10.4) fL Immature Gran % (Auto) % Neut % (Auto) % Lymph % (Auto) % Graves % (Auto) % Eos % (Auto) % Baso % (Auto) % Neut # (Auto) (1.4-6.5) K/uL Lymph # (Auto) (1.2-3.4) K/uL Graves # (Auto) (0.11-0.59) K/uL Eos # (Auto) (0-0.5) K/uL Baso # (Auto) (0-0.2) K/uL Immature Gran # (Auto) (0.00-0.02) K/uL Absolute Nucleated RBC (0-0) K/uL Nucleated RBC % (auto) % Polychromasia Hypochromasia Anisocytosis Ovalocytes Peripher Smr Path Cons Haptoglobin (43-212) mg/dL PT (9.0-12.0) Seconds INR (0.9-1.1) APTT (21.0-31.0) Seconds PTT Ratio Sodium (136-145) mmol/L Potassium (3.5-5.1) mmol/L Chloride (98-107) mmol/L Carbon Dioxide (21-32) mmol/L Anion Gap (3-11) BUN (6-23) mg/dl Creatinine (0.6-1.2) mg/dl Est Cr Clr Drug Dosing Est GFR ( Amer) ml/min Est GFR (Non-Af Amer) ml/min BUN/Creatinine Ratio (10-20) Glucose (70-99(Fasting)) mg/dl POC Glucose (70-99) mg/dl Calcium (8.5-10.1) mg/dl Total Bilirubin (0.2-1.0) mg/dl Direct Bilirubin (0-0.2) mg/dl AST (13-39) U/L ALT (7-52) U/L Alkaline Phosphatase (34-104) U/L Ammonia (18-72) umol/L Lactate Dehydrogenase Total Protein (6.0-8.3) gm/dl Albumin (3.4-5.0) gm/dl Globulin (2.5-4.0) gm/dl Albumin/Globulin Ratio (0.9-2) Ethax-5-Zmehyxlioti >300 H (83-199) mg/dL Blood Type Antibody Screen Antibody Identification Antibody ID Referred Antibody ID Comment Direct Antiglob Test (Negative) MARIBELL (IgG-AHG) (Negative) MARIBELL, Polyspecific (Negative) MARIBELL C3b, C3d 5 Min (Negative) Crossmatch Administered Medications Discontinued Medications Amlodipine Besylate (Amlodipine Besylate 5 Mg Tab) 10 mg PO [facility] Stop: 07/21/21 08:59 Last Admin: 06/23/21 08:12 Dose: 10 mg Documented by: [id number] Admin: 06/22/21 08:11 Dose: 10 mg Documented by: [id number] Admin: 06/21/21 08:36 Dose: Not Given Documented by: [id number] Aspirin (Aspirin 81 Mg Ectab) 81 mg PO [facility] Stop: 07/21/21 08:59 Last Admin: 06/23/21 08:12 Dose: 81 mg Documented by: [id number] Admin: 06/22/21 08:11 Dose: 81 mg Documented by: [id number] Admin: 06/21/21 08:50 Dose: 81 mg Documented by: [id number] Calcitriol (Calcitriol 0.25 Mcg Capsule) 0.25 mcg PO MoWeFr [facility] Stop: 07/20/21 18:17 Last Admin: 06/22/21 18:18 Dose: 0.25 mcg Documented by: [id number] Admin: 06/20/21 20:18 Dose: 0.25 mcg Documented by: [id number] Dextrose (Dextrose 50% 50 Ml Syringe) 25 ml IV NOW [facility] Stop: 06/20/21 12:36 Last Admin: 06/20/21 13:29 Dose: Not Given Documented by: [id number] Famotidine (Famotidine 20 Mg Tab) 10 mg PO DAILY [facility]; Protocol Stop: 07/21/21 08:59 Last Admin: 06/23/21 08:12 Dose: 10 mg Documented by: [id number] Admin: 06/22/21 08:12 Dose: 10 mg Documented by: [id number] Admin: 06/21/21 08:50 Dose: 10 mg Documented by: [id number] Fluticasone/Vilanterol (Fluticasone/Vilanterol 200/25mcg 14 Puffs/Inhaler) 1 puffs INH [facility] Stop: 07/21/21 08:59 Last Admin: 06/23/21 08:13 Dose: 1 puffs Documented by: [id number] Admin: 06/22/21 08:10 Dose: 1 puffs Documented by: [id number] Admin: 06/21/21 08:51 Dose: 1 puffs Documented by: [id number] Folic Acid (Folic Acid 1 Mg Tab) 1 mg PO QAM [place] Stop: 07/21/21 14:14 Last Admin: 06/23/21 08:13 Dose: 1 mg Documented by: [id number] Admin: 06/22/21 08:12 Dose: 1 mg Documented by: [id number] Admin: 06/21/21 16:09 Dose: 1 mg Documented by: [id number] Furosemide (Furosemide 40 Mg Tab) 40 mg PO QA [place] Stop: 07/21/21 08:59 Last Admin: 06/21/21 08:51 Dose: 40 mg Documented by: [id number] Sodium Chloride (Nss 1000ml) 1,000 mls @ 125 mls/hr IV .Q8H [facility] Stop: 06/20/21 18:46 Last Infusion: 06/20/21 22:08 Dose: 0 mls/hr Documented by: [id number] Admin: 06/20/21 11:13 Dose: 125 mls/hr Documented by: [id number] Pantoprazole Sodium (Protonix Bolus/Drip) 0 mls @ 1 mls/hr IV ONE STA Stop: 06/20/21 14:01 Last Admin: 06/20/21 14:52 Dose: Not Given Documented by: [id number] Pantoprazole Sodium 40 mg/ (Dextrose) 100 mls @ 20 mls/hr IV Q5H [place] Stop: 07/20/21 14:29 Last Infusion: 06/21/21 11:07 Dose: 0 mg/hr, 0 mls/hr Documented by: [id number] Infusion: 06/21/21 11:06 Dose: 0 mg/hr, 0 mls/hr Documented by: [id number] Admin: 06/21/21 06:15 Dose: 8 mg/hr, 20 mls/hr Documented by: [id number] Infusion: 06/21/21 06:15 Dose: 8 mg/hr, 20 mls/hr Documented by: [id number] Admin: 06/21/21 02:25 Dose: 8 mg/hr, 20 mls/hr Documented by: [id number] Infusion: 06/21/21 02:20 Dose: 0 mg/hr, 0 mls/hr Documented by: [id number] Admin: 06/20/21 21:45 Dose: 8 mg/hr, 20 mls/hr Documented by: [id number] Infusion: 06/20/21 19:51 Dose: 8 mg/hr, 20 mls/hr Documented by: [id number] Admin: 06/20/21 14:51 Dose: 8 mg/hr, 20 mls/hr Documented by: [id number] Pantoprazole Sodium 80 mg/ (Dextrose) 120 mls @ 400 mls/hr IV NOW ONE Stop: 06/20/21 14:17 Last Infusion: 06/20/21 16:05 Dose: 0 mls/hr Documented by: [id number] Admin: 06/20/21 14:51 Dose: 400 mls/hr Documented by: [id number] Methylprednisolone 50 mg/ (Syringe) 0.8 mls @ 1.5 mls/min IV BID [place] Stop: 06/22/21 21:00 Last Admin: 06/22/21 20:42 Dose: 1.5 mls/min Documented by: [id number] Admin: 06/22/21 08:11 Dose: 1.5 mls/min Documented by: [id number] Admin: 06/21/21 23:15 Dose: 1.5 mls/min Documented by: [id number] Admin: 06/21/21 14:17 Dose: 1.5 mls/min Documented by: [id number] Admin: 06/20/21 20:19 Dose: 1.5 mls/min Documented by: [id number] Pantoprazole Sodium 40 mg/ (Syringe) 10 mls @ 5 mls/min IV BID [place] Stop: 07/21/21 20:59 Last Admin: 06/23/21 08:13 Dose: 5 mls/min Documented by: [id number] Admin: 06/22/21 20:42 Dose: 5 mls/min Documented by: [id number] Admin: 06/22/21 08:10 Dose: 5 mls/min Documented by: [id number] Admin: 06/21/21 23:15 Dose: 5 mls/min Documented by: [id number] Insulin Aspart (Novolog Insulin Pump) 1 ea N/A ACHS [place]; Protocol Stop: 07/21/21 11:44 Last Admin: 06/23/21 12:51 Dose: 1 ea Documented by: [id number] Admin: 06/23/21 08:54 Dose: 1 ea Documented by: [id number] Admin: 06/22/21 20:43 Dose: Not Given Documented by: [id number] Cosigned by: [id number] Admin: 06/22/21 17:44 Dose: 1 ea Documented by: [id number] Admin: 06/22/21 13:20 Dose: 1 ea Documented by: [id number] Admin: 06/22/21 09:13 Dose: 1 ea Documented by: [id number] Admin: 06/21/21 23:12 Dose: Not Given Documented by: [id number] Admin: 06/21/21 18:25 Dose: 1 ea Documented by: [id number] Admin: 06/21/21 14:17 Dose: 1 ea Documented by: [id number] Isosorbide Mononitrate (Isosorbide Graves Extended Rel 60 Mg Tabcr) 120 mg PO QAM [place] Stop: 07/21/21 08:59 Last Admin: 06/23/21 08:13 Dose: 120 mg Documented by: [id number] Admin: 06/22/21 08:11 Dose: 120 mg Documented by: [id number] Admin: 06/21/21 08:51 Dose: 120 mg Documented by: [id number] Levothyroxine Sodium (Levothyroxine Sodium 88 Mcg Tablet) 88 mcg PO DAILYBB [facility] [place] [place] Stop: 07/21/21 06:29 Last Admin: 06/23/21 05:26 Dose: 88 mcg Documented by: [id number] Admin: 06/22/21 05:51 Dose: 88 mcg Documented by: [id number] Admin: 06/21/21 06:13 Dose: 88 mcg Documented by: [id number] Melatonin (Melatonin 3 Mg Tab) 3 mg PO HS PRN PRN Reason: Sleep Stop: 07/20/21 18:17 Last Admin: 06/22/21 20:42 Dose: 3 mg Documented by: [id number] Admin: 06/21/21 20:31 Dose: 3 mg Documented by: [id number] Methylprednisolone (Methylprednisolone 40 Mg/Ml Vial) 50 mg IV NOW STA Stop: 06/20/21 15:36 Last Admin: 06/20/21 16:04 Dose: 50 mg Documented by: [id number] Metoprolol Succinate (Metoprolol Succ 25mg Ext Rel Tab) 75 mg PO BID [place] Stop: 07/20/21 20:59 Last Admin: 06/23/21 08:53 Dose: Not Given Documented by: [id number] Admin: 06/22/21 20:42 Dose: 75 mg Documented by: [id number] Admin: 06/22/21 08:11 Dose: Not Given Documented by: [id number] Admin: 06/21/21 20:29 Dose: 75 mg Documented by: [id number] Admin: 06/21/21 08:52 Dose: 75 mg Documented by: [id number] Admin: 06/20/21 20:18 Dose: 75 mg Documented by: [id number] Montelukast Sodium (Montelukast Sodium 10 Mg Tablet) 10 mg PO HS [place] Stop: 07/20/21 20:59 Last Admin: 06/22/21 20:43 Dose: 10 mg Documented by: [id number] Admin: 06/21/21 20:31 Dose: 10 mg Documented by: [id number] Admin: 06/20/21 20:18 Dose: 10 mg Documented by: [id number] Multivitamins/Minerals (Calcium 600mg + Vit D 400 Iu Tab) 1 tab PO QAM [facility] [place] Stop: 07/21/21 08:59 Last Admin: 06/23/21 08:12 Dose: 1 tab Documented by: [id number] Admin: 06/22/21 08:12 Dose: 1 tab Documented by: [id number] Admin: 06/21/21 08:50 Dose: 1 tab Documented by: [id number] Ondansetron HCl (Ondansetron Inj 2 Mg/Ml 2 Ml Vial) 4 mg IV NOW STA Stop: 06/20/21 14:14 Last Admin: 06/20/21 14:23 Dose: 4 mg Documented by: [id number] Ondansetron HCl (Ondansetron Inj 2 Mg/Ml 2 Ml Vial) Confirm Administered Dose 4 mg .ROUTE .STK-MED ONE Stop: 06/20/21 14:17 Last Admin: 06/20/21 14:23 Dose: Not Given Documented by: [id number] Prednisone (Prednisone 50 Mg Tab) 100 mg PO DAILY [place] Stop: 07/23/21 08:59 Last Admin: 06/23/21 08:12 Dose: 100 mg Documented by: [id number] Sertraline HCl (Sertraline Hcl 100 Mg Tablet) 100 mg PO QAM [facility] [place] Stop: 07/21/21 08:59 Last Admin: 06/23/21 08:12 Dose: 100 mg Documented by: [id number] Admin: 06/22/21 08:11 Dose: 100 mg Documented by: [id number] Admin: 06/21/21 08:52 Dose: 100 mg Documented by: [id number] Umeclidinium Jenera (Umeclidinium Jenera 62.5mcg/Blister 7 Puffs/Inhaler) 1 puffs INH QAM [facility] [place]; Protocol Stop: 07/21/21 08:59 Last Admin: 06/23/21 08:13 Dose: 1 puffs Documented by: [id number] Admin: 06/22/21 08:10 Dose: 1 puffs Documented by: [id number] Admin: 06/21/21 08:52 Dose: 1 puffs Documented by: [id number] Imaging Data Radiologist's Impression: Chest X-Ray 06/20/21 10:47 XR chest 1V portable CLINICAL HISTORY: SOB TECHNIQUE: Single frontal radiograph of the chest was obtained. Comparison: None available at the time of this dictation. FINDINGS: Median sternotomy wires are seen with redemonstration of fractured wires. Cardiomegaly is noted. The lungs are clear. No evidence of pleural effusion or pneumothorax. IMPRESSION: Cardiomegaly without additional abnormality. In particular, no evidence of significant pulmonary edema. ACT 112: Negative or not required by law. Electronically signed by: Helio Davalos M.D. 06/20/2021 11:37 AM Abdomen/Pelvis CT 06/20/21 11:11 CT abd pelvis wo con CLINICAL HISTORY: acute jaundice TECHNIQUE: Helical axial images of the abdomen and pelvis were obtained. Automated dose lowering techniques and/or adjustment according to patient size were utilized for this exam. This exam was performed without intravenous contrast. CT DOSE: 1032.35 mGy.cm COMPARISON: Comparison is made to liver ultrasound 03/02/2021 and abdominal MRI 08/05/2019 FINDINGS: Lower chest: Atelectasis and groundglass opacities are seen in the lower lungs. Cardiomegaly with biatrial enlargement is seen. There are atherosclerotic calcifications in the coronary arteries. Liver: Nodular contour of the liver is seen compatible with cirrhosis. Gallbladder and biliary tree: Patient is status post cholecystectomy. No intra- or extrahepatic biliary ductal dilation. Pancreas: Unremarkable, no focal lesions. Spleen: Splenomegaly is noted, the spleen measures 20.5 cm in length. Adrenals: Unremarkable. Kidneys and ureters: Unremarkable. Bladder: Limited evaluation due to underdistention. Reproductive organs: Unremarkable. Bowel: Unremarkable. Lymph nodes Retroperitoneal: Unremarkable. Mesenteric: Unremarkable. Pelvic: Unremarkable. Peritoneum: Fat stranding is seen throughout the peritoneum. Vessels: Atherosclerotic calcifications are seen. Abdominal wall: Unremarkable. Bones: Unremarkable. IMPRESSION: 1. Diffuse peritoneal stranding, increased from prior exam, may represent nonspecific inflammatory or infectious process. 2. Cirrhosis and splenomegaly. ACT 112: Negative or not required by law. Electronically signed by: Helio Davalos M.D. 06/20/2021 1:09 PM Blood Pressure Blood Pressure Findings: Elevated blood pressure Blood Pressure Disposition: further management by hospitalist Discharge Plan Visit Data Chief Complaint: Abnormal Labs/Diagnostic Testing Stated Complaint: ABNORMAL LABS/REFERRED BY DR BENNETT ED Provider: Kristel Serna Discharge Problem: Anemia, Cirrhosis, Jaundice, Insulin dependent diabetes mellitus, Splenomegaly Patient Disposition: Admitted As Inpatient Discharge Instructions Interventions: ED Discharge Assessment Last Done: 06/20/21 17:37 Discharge Problem: Anemia Qualifiers: Anemia type: acquired or hereditary hemolytic anemia Hemolytic anemia type: acquired, unspecified Qualified Code(s): D59.9 - Acquired hemolytic anemia, unspecified Cirrhosis Qualifiers: Hepatic cirrhosis type: secondary biliary cirrhosis Qualified Code(s): 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
--- NOTE | 2021-06-21 15:35 | Hospitalist Progress Note ---
Date of Service June 21, 2021 Assessment & Plan (1) Anemia: Plan: Nat Kaur is a 71yo F witha PMHx of CAD with PCI x4 last 08/2020, CA BG, HTN, HLD, DM2, CKD, COPD, cirrhosis, KEREN on CPAP, CHF, PAF, FINA with recurrent anemia in the absence of overt GI bleeding who presents for symptomatic anemia on outpatient labs. Anemia, 2/2 immune mediated hemolysis - MARIBELL positive - Occult blood negative as outpt, weak positive in ER. PPI ordered on admit. Continue PPI BID. GI consulted, no EGD at this time. - Hgb 05/03 9.3, hgb at [facility] 06/14 5.3 -> 7.1 with 4 units. Venofer and Ritacrit given as outpt. - Outpt hgb 7.5, admit hgb 7.3 - Hgb downtrending to 6.2. 2 units ordered, pt with rbc antibodies and pending blood availability with difficult crossmatch. Additional 2 units ordered for hold given difficulty obtaining. Steroids as below. bili downtrending - MCV 96, increased RDW - retic % 8.6, Hct 25. Retic production Index ~2.5 --> Appropriate Response w/ epo - WBC, Plt suppressed (2.46, 88). - Iron studies 06/19: Ferritin 436(H), xferrin 227(N), iron 210(H). TSAT/xfer/UIBC nd. - LDH 264 - Haptoglobin undectable - Direct bili 3.0, total bili 9.0. - Admitting EKG: nsr without acute territorial ST segment changes. QTc 467. - Gabapentin held, ranolazine held. SSRI continued. - MRI 07/2019: Cirrhotic liver with splenomegaly, no hepatic masses, 4.6cm left adnexa cystic lesion. - Gabapentin held - Ranolazine held - no schistocytes reported, +spherocytes - Methylpred 0.5mpk BID, TDD 1mpk - B12/Foalte pending, folic acid PO daily Hx Cirrhosis, per pt 2/2 preceding diabetic renal disease. Acute Jaundice on Admit - No hx etoh use, hepatitis, IVDU - MELD 25, Child-Sheets Class B - EGD 03/15/21: Esophagus normal, stomach normal, duodenum normal - GI visit 03/22/21: Repeat EGD in 2 years. HCC surveillance routine. No evidence of varices. Does experience heartburn. - Bili 1.6 as past admit, total 9.0/direct 3.0 on admit. No schistocyte seen, +spherocytes, Suspect extravascular hemolysis + underlying hepatic dysfunction impairing clearance - Bili downtrending --> Tb 3.0 (dbili 1.1) 06/21 - CT-A/P: Diffuse peritoneal stranding, increased from prior exam, may represent nonspecific inflammatory or infectious process. Cirrhosis and splenomegaly. - 03/12/21 Liver US: Liver heterogenous and coarse with lobulated contour, 20cm length, no focal mass, no itrahepatic duct dilation. GB without wall thickening/edema. CBD normal 4mm. IVC patent. - Rosuvastatin held for hepatic dysfunction - Alpha antitrypsin pending - GI consulted. LIkely 2/2 hemolysis above, no hepatic decompensation. No indication for EGD at this time. CAD w/ PCI x4 last 08/2020, CABG - Hx R-JONO to PDA, L-JONO to LAD, Saph to LCX maginal - 12/2020 Carotid Doppler: 70% R-ICA, 50-69% L ICA stenosis unchagned from 2019 - Home apixaban 5mg held for anemia previously - ASA 81mg continued for high risk with hx stents - Lasix 40mg daily - Isosorbide mononitrate 120mg XR daily - Metoprolol succinate 75mg PO BID - Ranolazine held for potential hematopoetic suppression - Spironolactone 100mg daily previously held with ?ASHOK - Rosuvastatin 40mg held for hepatic dysfunction Chronic HF with preserved EF, no acute exacerbation - Reported by [facility], per pts [facility] cardiology review likely not consistent with CHR,but continued on lasix - No acute exacerbation - CXR without pulmonary edema - CAD management as noted - SpO2 goal >90% Paroxysmal Afib - Admitting EKG nsr - Recently d/la DOAC as outpt due to anemia as above - No acute intervention at time of admission, continue home meds including metoprolol Hypothyroidism - Synthroid 88mcg [employer] - Last TSH 05/03/21 wnl, fT4 wnl Depression/Anxiety - Continue home sertraline 100mg qAM; rarely this is associated with aplasia. - trazodone 50mg qHS PRN for sleep --> melatonin 3mg PO qHS PRN T2DM - Home insulin: aspart up to 230u daily via omnipod - BSG monitor malfunctioning in ER, will place on AC/HS and sliding scale - Pt reports home total daily dose of ~127 units - Basal 22u BID, CF 20, Carb ratio 6. CKD - baseline cr ~2.8-3.0 - Cr 2.65 on outpt lab - Admit cr 2.68 - Cr downtrending 06/21. - Has not needed dialysis. Has discussed fistula placement, but have deferred so far as her function had been stable. Would want a tunneled catheter in an emergency. - BMP daily, renally dose medications - Follow I&O. 2 unmeasured voids today. HTN - [employer]IST amlodipine 5mg HLD - Statin held as noted GERD - On PPI as previously noted - EGD as noted, no abnormalities/varices COPD/Asthma - No hx tobacco abuse - Alpha antitrypsin pending - continued home inhalers - No wheezing on exam, no acute exacerbation KEREN on CPAP 7mmH2O - Continue CPAP (2) Arteriosclerotic cardiovascular disease (ASCVD): (3) Asthma: (4) Bilateral carotid artery disease: (5) CAD (coronary artery disease): (6) Carotid stenosis: (7) Controlled type 2 diabetes mellitus with kidney complication, with long-term current use of insulin: (8) Heart failure with preserved ejection fraction: (9) Hepatic cirrhosis: (10) Hypercholesterolemia: (11) Hypertension: (12) Hypothyroidism: (13) Obesity, Class II, BMI 35-39.9: (14) Paroxysmal atrial fibrillation: (15) Pancytopenia: (16) Splenomegaly: (17) 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: Admission and Anticipated Discharge Date Admission Date: June 20, 2021 Subjective Seen at the bedside. She reports she continues to feel tired and a little bit short of breath with exertion, otherwise unchanged from yesterday. Denies clinical bleeding, no BM this morning. Denies chest pain, chest pressure. No fever or chills. Denies abdominal pain today, left abdominal pain previously noted improved today. Aware that she is pending blood transfusion however has been delayed due to difficulty finding compatible blood. Review of Systems Review of Systems: All systems reviewed & are unremarkable except as noted in Subjective Physical Exam Physical Exam: General: A&Ox3. NAD. Cooperative. Jaundice is present with scleral icterus. HEENT: Atraumatic, normocephalic. PERLAA, vision/hearing grossly intact. Pulm: CTAB A&P. -wheezes, -rales, -rhonchi. Symmetrical chest rise. No increased work of breathing. No respiratory distress. Cardiac: RRR, -mrg. Radial pulses intact and symmetrical. Abdominal:Softly distended, BS intact. nontender. Ext: Intact, atraumatic. Sensation to soft touch in hands and feet intact without asymmetry. Results & Data Results & Data ([facility]) Vital Signs (Past 12 Hours) Vital Signs Temp Pulse Pulse Resp BP Pulse Ox 06/21/21 11:02 36.3 C L 68 17 147/65 H 98 06/21/21 08:00 66 06/21/21 06:41 36.5 C 62 20 125/46 L 100 06/21/21 03:56 36.5 C 59 L 20 124/63 99 PG Care Time/CCT Total # of Minutes Spent Total Time Spent with Patient: Total time spent is greater than 50% in coordination of care (as documented) at patient's floor/unit and/or counseling patient: Coding Level of Care Code 58260 Subseq Hosp Care Lvl 3 Diagnoses Anemia D64.9 Arteriosclerotic cardiovascular disease (ASCVD) I25.10 Asthma J45.909 Bilateral carotid artery disease I77.9 CAD (coronary artery disease) I25.10 Carotid stenosis I65.29 Controlled type 2 diabetes mellitus with kidney complication, with long-term current use of insulin E11.29; Z79.4 Heart failure with preserved ejection fraction I50.30 Hepatic cirrhosis K74.69 Hepatic cirrhosis type: other cirrhosis Hypercholesterolemia E78.00 Hypertension I10 Hypothyroidism E03.9 Obesity, Class II, BMI 35-39.9 E66.9 Paroxysmal atrial fibrillation I48.0 Pancytopenia D61.818 Splenomegaly R16.1 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 (1) Hepatic cirrhosis Hepatic cirrhosis type: other cirrhosis Qualified Code(s): K74.69 - Other cirrhosis of liver
[2021-06-21 15:36] LABS: Folate (Folic Acid) > 22.30 ng/ml (>5.38)
[2021-06-21 15:37] LABS: Vitamin B12 617 pg/ml (180-914)
[2021-06-21] MEDS: FOLIC ACID 1 MG TAB PO SCH (16:09)
[2021-06-21] MEDS: MELATONIN 3 MG TAB PO PRN (20:31)
[2021-06-21] MEDS: MONTELUKAST SODIUM 10 MG TABLET PO SCH (20:31)
[2021-06-21] MEDS: PANTOprazole 40 MG in SYRINGE 0 ML IV SCH (23:15)
--- NOTE | 2021-06-21 23:42 | Electrocardiogram Report ---
Test Reason : Blood Pressure : / mmHG Vent. Rate : 067 BPM Atrial Rate : 067 BPM P-R Int : 140 ms QRS Dur : 076 ms QT Int : 442 ms P-R-T Axes : 031 035 120 degrees QTc Int : 467 ms Sinus rhythm with marked sinus arrhythmia Cannot rule out Anterior infarct , age undetermined Nonspecific ST and T wave abnormality Abnormal ECG When compared with ECG of 24-SEP-2020 10:02, No significant change was found Confirmed by Carmelo Arriola ([id number]) on 06/21/2021 11:42:31 PM Referred By: REFERRED SELF Confirmed By:Carmelo Arriola
--- NOTE | 2021-06-22 03:50 | Consultation Report ---
DATE OF SERVICE: 06/21/2021. REASON FOR CONSULTATION: Hemolytic anemia. HISTORY OF PRESENT ILLNESS: Ms. Kaur is a 71-year-old female who presented to the ED yesterday wit h complaints of nausea, diarrhea and left lower quadrant abdominal pain as well as fatigue. Labs obt ained in the ED had demonstrated anemia with hemoglobin of 6.4 as well as leukopenia with white count of 1.7 and platelet count of 81,000. Of note, her ANC was 4. CMP also revealed unconjugated hyperb ilirubinemia with total bilirubin of 9.2 and direct bilirubin of 2.7. LDH was also elevated at 441 a nd haptoglobin was undetectable. Peripheral smear review by pathology also obtained on admission rev ealed anisopoikilocytosis, polychromasia, hypochromasia, ovalocytes, rare tailed poikilocytes and rar e schistocytes and rare spherocytes with no evidence of blasts or schistocytes noted. Of note, the sagar gutierrez had recently been discharged from [facility] for anemia and left sided chest nickolas n for which she received IV iron infusion and 4 units of packed red blood cell transfusion. I inez sed her case with ED physician as well as hospital medicine attending and recommended the patient be started on high-dose steroids with methylprednisolone or prednisone 1 mg/kg per day, which was starte d yesterday with subsequent improvement in bilirubin to 3.0 and direct bilirubin of 1.1. PAST MEDICAL HISTORY: 1. Carotid artery disease. 2. Coronary artery disease. 3. Diabetes mellitus. 4. Gastroparesis. 5. Liver cirrhosis. 6. Asthma. 7. Depression. 8. Hyperlipidemia. 9. Hypertension. 10. Hypothyroidism. 11. Obstructive sleep apnea. 12. Paroxysmal atrial fibrillation. 13. CKD stage IV. PAST SURGICAL HISTORY: 1. ISABEL with unilateral oophorectomy. 2. Cataract surgery. 3. Left knee replacement. 4. History of CABG. 5. Status post bilateral breast reduction. MEDICATIONS PRIOR TO ADMISSION: 1. Calcium carbonate. 2. Tramadol 50 mg p.o. q. 6 hours. 3. Levothyroxine 88 mcg p.o. daily. 4. Rosuvastatin. 5. Insulin. 6. Apixaban 5 mg p.o. b.i.d. 7. Spironolactone 100 mg p.o. daily. 8. Trazodone 50 mg p.o. at bedtime. 9. Lasix 40 mg p.o. daily. 10. Metoprolol 75 mg p.o. b.i.d. 11. Ranolazine 1000 mg p.o. b.i.d. 12. Amlodipine 10 mg p.o. daily. 13. Famotidine 20 mg p.o. b.i.d., 14. Ferrous sulfate 325 mg p.o. q.a.m. 15. Pantoprazole 40 mg p.o. b.i.d. ALLERGIES: LEVOFLOXACIN, ENALAPRIL, INSULIN. SOCIAL HISTORY: Denies smoking. Drinks alcohol occasionally. Denies illicit drug use. FAMILY HISTORY: Significant for breast cancer in her mother and brain cancer in her sister. REVIEW OF SYSTEMS: CONSTITUTIONAL: Negative for weight loss, night sweats or fever. CARDIOVASCULAR: Negative for chest pain, palpitations, dizziness, or diaphoresis. RESPIRATORY: Negative for shortness of breath, hemoptysis or cough. GASTROINTESTINAL: Negative for diarrhea, hematemesis, melena, nausea, vomiting or dyspepsia. GENITOURINARY: Negative for urinary frequency, hematuria or dysuria. NEUROLOGIC: Positive for generalized weakness. No headaches or dizziness. LYMPHATICS/HEMATOLOGIC: Negative for abnormal bleeding or new adenopathy. MUSCULOSKELETAL: Negative for new joint or back pain. PHYSICAL EXAMINATION: VITAL SIGNS: Blood pressure 136/70, heart rate 63, respiratory rate 18, temperature 36.7, oxygen sat uration 91% on 2 liters intranasal oxygen. EYES: Eyes were slightly icteric with no erythema. NECK: No palpable masses. RESPIRATORY: Lung sounds were generally clear bilaterally. CARDIOVASCULAR: Heart is regular rate and rhythm without significant murmur, gallops, or rubs. GASTROINTESTINAL: Abdomen is soft with normal bowel sounds and no palpable hepatosplenomegaly. LYMPHATIC SYSTEM: No palpable peripheral lymphadenopathy. SKIN: Mild icterus. EXTREMITIES: No edema bilaterally. LABORATORY DATA: CBC on 06/20/2021, significant for white cell count of 1.74, hemoglobin of 6.4, hem atocrit 21.4 with MCV of 97.3, platelet count of 81,000. Chemistry significant for LDH of 441. Hapt oglobin was undetectable. Tirso test was positive. Labs today significant for white count of 0.97, hemoglobin of 6.2, hematocrit of 21 with platelet count of 82,000. Bilirubin improved from 9.2 on to 3.0 today with direct bilirubin improving from 2.7 to 1.1 today. IMAGING STUDIES: CT abdomen and pelvis on 06/20/2021 revealed: 1. Diffuse peritoneal stranding, increased from prior exam, may represent nonspecific inflammatory/i nfectious process. 2. Cirrhosis and splenomegaly. IMPRESSION: 1. Autoimmune hemolytic anemia. 2. Pancytopenia. 3. Liver cirrhosis. 4. Diffuse peritoneal stranding, possibly due to nonspecific inflammatory/infectious process. Pleasant female who presented with GI symptoms and was found to be severely anemic with elevated LDH, low haptoglobin, few spherocytes on peripheral smear and positive Tirso test for which I had recomm ended starting high-dose steroids yesterday with improvement in unconjugated hyperbilirubinemia. Wou ld recommend workup for underlying causes of autoimmune hemolytic anemia including infections, autoim mune conditions, underlying malignancy. Given significant peritoneal stranding on imaging, would rec ommend evaluation for possible GI source of hemolytic anemia. If this is negative, she would require a CT chest to rule out underlying oncologic malignancy. In the meantime, I would recommend continui ng with steroids. Given significant improvement in hemolysis with less than a day of steroids, I do not anticipate that she will need further treatment with rituximab. However, if hemolysis does not c ontinue to improve, may consider adding on rituximab. Would recommend supplemental folic acid 1 mg p .o. daily given significant hemolysis. Also, recommend obtain anemia workup with vitamin B12, folate , iron studies. PLAN: 1. Recommend continuing with high-dose steroids until hemolysis resolved, after which steroids can b e tapered gradually. 2. Recommend working up for underlying infection/malignancy. 3. Close monitoring for DVT/PE given increased risk of venous thromboembolism with hemolytic anemia. 4. Recommend checking anemia labs including iron studies, vitamin B12 and folate levels. 5. If no underlying cause is found, the patient may need outpatient bone marrow biopsy to rule out u nderlying leukemia/lymphoma. 6. No indication for rituximab at this time given improvement with steroids. Thank you for this consult. Hematology will continue following the patient while in the hospital. Sagar contreras feel free to call if you have any further questions. Job ID: [id number]
[2021-06-22] MEDS: LEVOTHYROXINE SODIUM 88 MCG TABLET PO SCH (05:51)
[2021-06-22 05:57] LABS: Hemoglobin 8.5 g/dL (12.0-16.0); Mean Corpuscular Hemoglobin 28.8 pg (25-34); Mean Corpuscular Hgb Conc 30.4 g/dL (32-36); Mean Corpuscular Volume 94.9 fL (80-100); Mean Platelet Volume 10.1 fL (7.4-10.4); Nucleated RBC # (auto) 0.02 K/uL (0-0); Nucleated RBC % (auto) 0.6 %; Platelet Count 96 K/uL (130-400); RDW Coefficient of Variation 19.6 % (11.5-14.5); RDW Standard Deviation 60.7 fL (36.4-46.3); Red Blood Count 2.95 M/uL (4.2-5.4)
[2021-06-22 06:29] LABS: Albumin Globulin Ratio 1.2 (0.9-2); Albumin Level 3.3 gm/dl (3.4-5.0); Bilirubin Direct 0.8 mg/dl (0-0.2); Bilirubin,Total 2.2 mg/dl (0.2-1.0); Calcium 8.7 mg/dl (8.5-10.1); Creatinine Clr Calc Pharmacy 23.4 ml/min; Est GFR (Non-African American) 20.7 ml/min; Globulin 2.8 gm/dl (2.5-4.0); Potassium 4.1 mmol/L (3.5-5.1); Total Protein 6.1 gm/dl (6.0-8.3)
[2021-06-22 06:45] LABS: Immature Granulocytes # (auto) 0.04 K/uL (0.00-0.02); Immature Granulocytes % (auto) 1.2 %; Lymphocytes # (auto) 0.79 K/uL (1.2-3.4); Lymphocytes % (auto) 23.2 %; Monocytes % (auto) 2.9 %; Neutrophils # (auto) 2.47 K/uL (1.4-6.5); Neutrophils % (auto) 72.7 %; Polychromasia 1+
[2021-06-22] MEDS: FLUTICASONE/VILANTEROL 200/25MCG 14 PUFFS/INHALER INH SCH (08:10)
[2021-06-22] MEDS: UMECLIDINIUM BROMIDE 62.5MCG/BLISTER 7 PUFFS/INHALER INH SCH (08:10)
[2021-06-22] MEDS: PANTOprazole 40 MG in SYRINGE 0 ML IV SCH ×2 (08:10→20:42)
[2021-06-22] MEDS: SERTRALINE HCL 100 MG TABLET PO SCH (08:11)
[2021-06-22] MEDS: ASPIRIN 81 MG ECTAB PO SCH (08:11)
[2021-06-22] MEDS: amLODIPine BESYLATE 5 MG TAB PO SCH (08:11)
[2021-06-22] MEDS: METOPROLOL SUCC 25MG EXT REL TAB PO SCH ×2 (08:11→20:42)
[2021-06-22] MEDS: ISOSORBIDE MONO EXTENDED REL 60 MG TABCR PO SCH (08:11)
[2021-06-22] MEDS: methylPREDNISolone 50 MG in SYRINGE 0 ML IV SCH ×2 (08:11→20:42)
[2021-06-22] MEDS: CALCIUM 600MG + VIT D 400 IU TAB PO SCH (08:12)
[2021-06-22] MEDS: FOLIC ACID 1 MG TAB PO SCH (08:12)
[2021-06-22] MEDS: FAMOTIDINE 20 MG TAB PO SCH (08:12)
[2021-06-22] MEDS: NovoLOG INSULIN PUMP SCH ×4 (09:13→20:43)
--- NOTE | 2021-06-22 10:25 | Communication Note ---
Date of Service: June 22, 2021 Discussed care with hospitalist. Previous CT w/o contrast indicated peritoneal stranding. Hematology has asked that we rule out underlying GI infection as ca use for her current clinical scenario. No abdominal pain or diarrhea at present, however will plan to obtain stool studies & aim for short-term follow-up with a repeat CT scan of the abdomen pelvis (ideally with contrast). Treatment of hemolytic anemia per primary team and hematology.
--- NOTE | 2021-06-22 14:07 | Hospitalist Progress Note ---
Date of Service June 22, 2021 Assessment & Plan (1) Anemia: Plan: Nat Kaur is a 71yo F witha PMHx of CAD with PCI x4 last 08/2020, CA BG, HTN, HLD, DM2, CKD, COPD, cirrhosis, KEREN on CPAP, CHF, PAF, FINA with recurrent anemia in the absence of overt GI bleeding who presents for symptomatic anemia on outpatient labs. Anemia, 2/2 immune mediated hemolysis - MARIBELL positive - Occult blood negative as outpt, weak positive in ER. PPI ordered on admit. Continue PPI BID. GI consulted, no EGD at this time. - Hgb 05/03 9.3, hgb at [facility] [place] 06/14 5.3 -> 7.1 with 4 units. Venofer and Ritacrit given as outpt. - Outpt hgb 7.5, admit hgb 7.3 - Hgb down trended to 6.2, 2 units was transfused with appropriate rise to 8.5. Pending recheck for stability. 2 additional units are in-house on hold. - MCV 96, increased RDW - retic % 8.6, Hct 25. Retic production Index ~2.5 --> Appropriate Response w/ epo - WBC, Plt suppressed (2.46, 88). - Iron studies 06/19: Ferritin 436(H), xferrin 227(N), iron 210(H). TSAT/xfer/UIBC nd. - LDH 264 - Haptoglobin undectable - Direct bili 3.0, total bili 9.0. - Admitting EKG: nsr without acute territorial ST segment changes. QTc 467. - Gabapentin held, ranolazine held. SSRI continued. - MRI 07/2019: Cirrhotic liver with splenomegaly, no hepatic masses, 4.6cm left adnexa cystic lesion. - Gabapentin held - Ranolazine held - no schistocytes reported, +spherocytes - Methylpred verted to prednisone 100 mg daily to be continued until outpatient follow-up. No indication for rituximab. - B12/Foalte normal, folic acid PO daily Discussed follow-up for abdominal CT and stranding and unclear cause for what triggered her autoimmune hemolysis. Did express concern for underlying infection versus malignancy which could have triggered this, especially given her prior history of cancer. Did discuss with heme-onc as well. Recommend having a follow-up managing, can consider CT with contrast versus PET scan but would do this as outpatient with close clinical follow-up patient is asymp tomatic from a GI perspective at this time. Hx Cirrhosis, per pt 2/2 preceding diabetic renal disease. Acute Jaundice on Admit - No hx etoh use, hepatitis, IVDU - MELD 25, Child-Sheets Class B - EGD 03/15/21: Esophagus normal, stomach normal, duodenum normal - GI visit 03/22/21: Repeat EGD in 2 years. HCC surveillance routine. No evidence of varices. Does experience heartburn. - Bili 1.6 as past admit, total 9.0/direct 3.0 on admit. No schistocyte seen, +spherocytes, Suspect extravascular hemolysis + underlying hepatic dysfunction impairing clearance - Bili downtrending --> Tb 3.0 (dbili 1.1) 06/21 - CT-A/P: Diffuse peritoneal stranding, increased from prior exam, may represent nonspecific inflammatory or infectious process. Cirrhosis and splenomegaly. - 03/12/21 Liver US: Liver heterogenous and coarse with lobulated contour, 20cm length, no focal mass, no itrahepatic duct dilation. GB without wall thickening/edema. CBD normal 4mm. IVC patent. - Rosuvastatin held for hepatic dysfunction - Alpha antitrypsin pending - GI consulted. LIkely 2/2 hemolysis above, no hepatic decompensation. No indication for EGD at this time. CAD w/ PCI x4 last 08/2020, CABG - Hx R-JONO to PDA, L-JONO to LAD, Saph to LCX maginal - 12/2020 Carotid Doppler: 70% R-ICA, 50-69% L ICA stenosis unchagned from 2019 - Home apixaban 5mg held for anemia previously - ASA 81mg continued for high risk with hx stents - Lasix 40mg daily - Isosorbide mononitrate 120mg XR daily - Metoprolol succinate 75mg PO BID - Ranolazine held for potential hematopoetic suppression - Spironolactone 100mg daily previously held with ?ASHOK - Rosuvastatin 40mg held for hepatic dysfunction Chronic HF with preserved EF, no acute exacerbation - Reported by C ramana, per pts [facility] cardiology review likely not c onsistent with CHR,but continued on lasix - No acute exacerbation - CXR without pulmonary edema - CAD management as noted - SpO2 goal >90% Paroxysmal Afib - Admitting EKG nsr - Recently d/la DOAC as outpt due to anemia as above - No acute intervention at time of admission, continue home meds including metoprolol Hypothyroidism - Synthroid 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 - trazodone 50mg qHS PRN for sleep --> melatonin 3mg PO qHS PRN T2DM - Home insulin: aspart up to 230u daily via omnipod - BSG monitor malfunctioning in ER, will place on AC/HS and sliding scale - Pt reports home total daily dose of ~127 units - Basal 22u BID, CF 20, Carb ratio 6. CKD - baseline cr ~2.8-3.0 - Cr 2.65 on outpt lab - Admit cr 2.68 - Cr downtrending 06/21. - Has not needed dialysis. Has discussed fistula placement, but have deferred so far as her function had been stable. Would want a tunneled catheter in an emergency. She notes her family is adamantly opposed to dialysis, she is not sure which she would want. - BMP daily, renally dose medications - Follow I&O. 2 unmeasured voids today. 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 amlodipine 5mg HLD - Statin held as noted GERD - On PPI as previously noted - EGD as noted, no abnormalities/varices COPD/Asthma - No hx tobacco abuse - Alpha antitrypsin pending - continued home inhalers - No wheezing on exam, no acute exacerbation KEREN on CPAP 7mmH2O - Continue CPAP (2) Arteriosclerotic cardiovascular disease (ASCVD): (3) Asthma: (4) Bilateral carotid artery disease: (5) CAD (coronary artery disease): (6) Carotid stenosis: (7) Controlled type 2 diabetes mellitus with kidney complication, with long-term current use of insulin: (8) Heart failure with preserved ejection fraction: (9) Hepatic cirrhosis: (10) Hypercholesterolemia: (11) Hypertension: (12) Hypothyroidism: (13) Obesity, Class II, BMI 35-39.9: (14) Paroxysmal atrial fibrillation: (15) Pancytopenia: (16) Splenomegaly: (17) 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 Patient reports she feels well, and notices her skin is much less yellow today. She reports the pain that was in her left lower abdomen continues to resolve, although on exam with deep palpation does have mild tenderness. Denies nausea/vomiting/diarrhea/constipation. Denies chest pain/chest pressure. Does feel globally weak but not lightheaded at time of assessment. Discussed follow-up for abdominal CT and stranding and unclear cause for what triggered her autoimmune hemolysis. Did express concern for underlying infection versus malignancy which could have triggered this, especially given her prior history of cancer. Would recommend a CT with IV contrast for follow- up, although patient is very concerned about her kidneys and has been following with nephrology as an outpatient for CKD. She notes that dialysis is discussed with her several times, however her family is adamant that they do not want her on dialysis and do not want a fistula placed. Patient expresses that she is not sure what she would want, and that is a family decision and if it were very bad she might consider it. Did discuss with oncology, would recommend follow-up imaging as outpatient as patient is asymptomatic at this time. Review of Systems Review of Systems: All systems reviewed & are unremarkable except as noted in Subjective Physical Exam Physical Exam: General: A&Ox3. NAD. Cooperative. Jaundice is greatly improved, minimal to no scleral icterus. HEENT: Atraumatic, normocephalic. PERLAA, vision/hearing grossly intact. Pulm: CTAB A&P. -wheezes, -rales, -rhonchi. Symmetrical chest rise. No increased work of breathing. No respiratory distress. Cardiac: RRR, -mrg. Radial pulses intact and symmetrical. Abdominal:Softly distended, BS intact. Tenderness on deep palpation at left lower quadrant otherwise nontender and without guarding Ext: Intact, atraumatic. Sensation to soft touch in hands and feet intact without asymmetry. Results & Data Results & Data ([facility]) Vital Signs (Past 12 Hours) Vital Signs Temp Pulse Pulse Resp BP BP Pulse Ox 06/22/21 11:21 36.4 C L 58 L 18 130/72 98 06/22/21 08:02 59 L 06/22/21 07:39 36.8 C 57 L 17 138/68 98 06/22/21 03:17 36.7 C 53 L 18 131/77 96 06/22/21 02:15 61 PG Care Time/CCT Total # of Minutes Spent Total Time Spent with Patient: Total time spent is greater than 50% in coordination of care (as documented) at patient's floor/unit and/or counseling patient: Coding Level of Care Code 92888 Subseq Hosp Care Lvl 3 Diagnoses Anemia D64.9 Arteriosclerotic cardiovascular disease (ASCVD) I25.10 Asthma J45.909 Bilateral carotid artery disease I77.9 CAD (coronary artery disease) I25.10 Carotid stenosis I65.29 Controlled type 2 diabetes mellitus with kidney complication, with long-term current use of insulin E11.29; Z79.4 Heart failure with preserved ejection fraction I50.30 Hepatic cirrhosis K74.69 Hepatic cirrhosis type: other cirrhosis Hypercholesterolemia E78.00 Hypertension I10 Hypothyroidism E03.9 Obesity, Class II, BMI 35-39.9 E66.9 Paroxysmal atrial fibrillation I48.0 Pancytopenia D61.818 Splenomegaly R16.1 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 (1) Hepatic cirrhosis Hepatic cirrhosis type: other cirrhosis Qualified Code(s): K74.69 - Other cirrhosis of liver
[2021-06-22 14:53] LABS: Hematocrit (blood only) 29.8 % (37-47); Hemoglobin 9.1 g/dL (12.0-16.0)
[2021-06-22] MEDS: CALCITRIOL 0.25 MCG CAPSULE PO SCH (18:18)
[2021-06-22] MEDS: MELATONIN 3 MG TAB PO PRN (20:42)
[2021-06-22] MEDS: MONTELUKAST SODIUM 10 MG TABLET PO SCH (20:43)
[2021-06-23] MEDS: LEVOTHYROXINE SODIUM 88 MCG TABLET PO SCH (05:26)
[2021-06-23 05:55] LABS: Hematocrit (blood only) 29.3 % (37-47); Hemoglobin 9.2 g/dL (12.0-16.0); Mean Corpuscular Hemoglobin 30.6 pg (25-34); Mean Corpuscular Hgb Conc 31.4 g/dL (32-36); Mean Corpuscular Volume 97.3 fL (80-100); Nucleated RBC # (auto) 0.02 K/uL (0-0); Nucleated RBC % (auto) 0.6 %; RDW Coefficient of Variation 21.1 % (11.5-14.5); Red Blood Count 3.01 M/uL (4.2-5.4); White Blood Count 3.96 K/uL (4.8-10.8)
[2021-06-23 05:57] LABS: Mean Platelet Volume 9.9 fL (7.4-10.4); Platelet Count 98 K/uL (130-400)
[2021-06-23 06:13] LABS: Albumin Globulin Ratio 1.3 (0.9-2); Albumin Level 3.5 gm/dl (3.4-5.0); BUN Creatinine Ratio 20.3 (10-20); Bilirubin Direct 0.6 mg/dl (0-0.2); Bilirubin,Total 2.1 mg/dl (0.2-1.0); Calcium 8.4 mg/dl (8.5-10.1); Creatinine Clr Calc Pharmacy 24.4 ml/min; Est GFR (African American) 25.2 ml/min; Est GFR (Non-African American) 21.7 ml/min; Globulin 2.6 gm/dl (2.5-4.0); Potassium 4.1 mmol/L (3.5-5.1); Total Protein 6.1 gm/dl (6.0-8.3)
[2021-06-23 06:17] LABS: Anisocytosis Present; Immature Granulocytes # (auto) 0.03 K/uL (0.00-0.02); Immature Granulocytes % (auto) 0.8 %; Lymphocytes # (auto) 0.86 K/uL (1.2-3.4); Lymphocytes % (auto) 21.7 %; Monocytes % (auto) 5.1 %; Neutrophils # (auto) 2.87 K/uL (1.4-6.5); Neutrophils % (auto) 72.4 %; Polychromasia 1+
[2021-06-23] MEDS: amLODIPine BESYLATE 5 MG TAB PO SCH (08:12)
[2021-06-23] MEDS: ASPIRIN 81 MG ECTAB PO SCH (08:12)
[2021-06-23] MEDS: FAMOTIDINE 20 MG TAB PO SCH (08:12)
[2021-06-23] MEDS: CALCIUM 600MG + VIT D 400 IU TAB PO SCH (08:12)
[2021-06-23] MEDS: SERTRALINE HCL 100 MG TABLET PO SCH (08:12)
[2021-06-23] MEDS: FOLIC ACID 1 MG TAB PO SCH (08:13)
[2021-06-23] MEDS: UMECLIDINIUM BROMIDE 62.5MCG/BLISTER 7 PUFFS/INHALER INH SCH (08:13)
[2021-06-23] MEDS: FLUTICASONE/VILANTEROL 200/25MCG 14 PUFFS/INHALER INH SCH (08:13)
[2021-06-23] MEDS: ISOSORBIDE MONO EXTENDED REL 60 MG TABCR PO SCH (08:13)
[2021-06-23] MEDS: PANTOprazole 40 MG in SYRINGE 0 ML IV SCH (08:13)
[2021-06-23] MEDS: METOPROLOL SUCC 25MG EXT REL TAB PO SCH (08:53)
[2021-06-23] MEDS: NovoLOG INSULIN PUMP SCH ×2 (08:54→12:51)
[2021-06-23] MEDS ORDERED: predniSONE 50 MG TAB PO SCH (09:00)
--- NOTE | 2021-06-23 12:20 | Discharge Summary ---
Date of Service June 23, 2021 Admission HPI Per Admitting Provider Nat Kaur is a 71yo F witha PMHx of CAD with PCI x4 last 08/2020, CA BG, HTN, HLD, DM2, CKD, COPD, cirrhosis, KEREN on CPAP, CHF, PAF, FINA with recurrent anemia in the absence of overt GI bleeding who presents for symptomatic anemia on outpatient labs. Last hospitalization in [facility] discharged 06/15/21 for anemia with L sided chest pain. Was noted to have iron xfusion 05/10. Recieved lasix for ?PNA vs pulm edema. Hgb 5.3 at that time and recieved 4u pBC. Home O2 4L rest, 6L exertion. Eliquis held. Spironolactone held due to Cr 3.1. Cotninued on lasix 40mg daily. At 06/18/21 PCP followup chris somewhat improved. Was to see nephro 06/21, cardiology 06/19, hematology, and f/u with Gi although patient was not interested in liver transplant referral. Seen by cardiology 06/19/21. Noted to have worsening jaundice [facility] with LUQ discomfort. Pt feels she has been doing poorly for several months, although notes she was trying to hide it form her but last Friday got to the point where she was so tired she had to see her doctor. notes she has been yellow just in the past few days/week. No fevers, chills, sweats. +Nausea daily for several days with dry heaves Diarrhea started today, hasn't looked at the color. +LLQ abdominal pain started today with her diarrhea, non prior to this. Has been seen for congestive heart failure and recently saw Dr. Hooker. 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 HOme O2 just int he last week, no prior oxygen requirements. No swelling in the legs. NO chest pain, no chest pressure, no shortness of breath on her oxygen. No bleeding/ Pt reports she has begun to feel very nauseas. +Emesis nonbloody. Unclear etiology of her cirrhosis, was told her kidney disease from DM led to her liver cirrhosis. No history or alcohol use or drug use. Denies history of hepatitis, HCV prior testing negative. Last colonoscopy 2018 normal per pt. Did not take morning medications yet except for omeprazole, lasix, and synthroid. Has been taken off spironolactone, crestor, gabapentin, and renexa in this past week. Used to get neuropathy which has not been occuring which is what she used to take gabapentin for. At last visit saw Juli who reproted she would have more followup. Had not discussed tertiary care yet. Did she [facility] many years ago, but has not had recent followup. Would want tertiary evaluation if her condition were to worsen or become life threating. Deferred invasive measures/surgery/fistula palcement in the past as she felt her illness was not critical yet, but would be interested in this for progressive/worsening illness. MELD 25, Child-Sheets Class B Medical History: Reviewed Medications: Reviewed Surgical History: Reviewed Allergies: Reviewed Social History: No tobacco/etoh use. No rec drug use. Code Status: Surrogate would be her Keny. Full Code. Principal Diagnosis AIHA Discharge Exam General: A&Ox3. NAD. Cooperative. Jaundice resolved, no scleral icterus. HEENT: Atraumatic, normocephalic. PERLAA, vision/hearing grossly intact. Pulm: CTAB A&P. -wheezes, -rales, -rhonchi. Symmetrical chest rise. No increased work of breathing. No respiratory distress. Cardiac: RRR, -mrg. Radial pulses intact and symmetrical. Abdominal:Softly distended, BS intact.NT. Ext: Intact, atraumatic. Sensation to soft touch in hands and feet intact without asymmetry Discharge Data Allergies Allergy/AdvReac Type Severity Reaction Status Date / Time levofloxacin Allergy Intermediate rash Verified 06/20/21 12:35 enalapril Allergy Unknown DRY COUGH Verified 06/20/21 12:35 insulin detemir Allergy Unknown HIVES Verified 06/20/21 12:35 enalaprilat [From Vasotec] Allergy Unknown Verified 06/20/21 12:35 Consultations 06/20/21 13:47 ED Decision to Admit Stat 06/20/21 13:55 Consult Hematology Stat 06/20/21 18:18 Consult Gastroenterology Routine Ordered Studies 06/20/21 11:11 CT abd pelvis wo con Stat Hospital Course (1) Anemia: Nat Kaur is a 71yo F witha PMHx of CAD with PCI x4 last 08/2020, CA BG, HTN, HLD, DM2, CKD, COPD, cirrhosis, KEREN on CPAP, CHF, PAF, FINA with recurrent anemia in the absence of overt GI bleeding who presents for symptomatic anemia on outpatient labs. To do as outpatient: 1. Continue pred 100mg daily for AIHI with followup and taper per heme/onc f/u 2. Followup on CT-Ab nonspecific stranding. Consider followup PET vs CT +/- contrast, limited by renal function with patient family very concerned by dialysis and any tests which could worsen renal function. 3. Followup CBC/CMP/Tbili/Dbili within 1 week for stability 4. Ranolazine/gabapentin held. Anemia, 2/2 immune mediated hemolysis - MARIBELL positive - Occult blood negative as outpt, weak positive in ER. PPI ordered on admit. Continue PPI BID. GI consulted, no EGD at this time. - Hgb 05/03 9.3, hgb at [facility] 06/14 5.3 -> 7.1 with 4 units. Venofer and Ritacrit given as outpt. - Outpt hgb 7.5, admit hgb 7.3 - Hgb down trended to 6.2, 2 units was transfused with appropriate rise to 8.5.Stable on recheck. - MCV 96, increased RDW - retic % 8.6, Hct 25. Retic production Index ~2.5 --> Appropriate Response w/ e po - WBC, Plt suppressed (2.46, 88). - Iron studies 06/19: Ferritin 436(H), xferrin 227(N), iron 210(H). TSAT/xfer/UIBC nd. - LDH 264 - Haptoglobin undectable - Direct bili 3.0, total bili 9.0. - Admitting EKG: nsr without acute territorial ST segment changes. QTc 467. - Gabapentin held, ranolazine held. SSRI continued. - MRI 07/2019: Cirrhotic liver with splenomegaly, no hepatic masses, 4.6cm left adnexa cystic lesion. - Gabapentin held - Ranolazine held - no schistocytes reported, +spherocytes - Methylpred converted to prednisone 100 mg daily to be continued until outpatient follow-up. No indication for rituximab. - B12/Foalte normal, folic acid PO daily Discussed follow-up for abdominal CT and stranding and unclear cause for what triggered her autoimmune hemolysis. Did express concern for underlying infection versus malignancy which could have triggered this, especially given her prior history of cancer. Did discuss with heme-onc as well. Recommend hav ing a follow-up managing, can consider CT with contrast versus PET scan but would do this as outpatient with close clinical follow-up patient is asymptomatic from a GI perspective at this time. Hx Cirrhosis, per pt 2/2 preceding diabetic renal disease. Acute Jaundice on Admit - No hx etoh use, hepatitis, IVDU - MELD 25, Child-Sheets Class B - EGD 03/15/21: Esophagus normal, stomach normal, duodenum normal - GI visit 03/22/21: Repeat EGD in 2 years. HCC surveillance routine. No evidence of varices. Does experience heartburn. - Bili 1.6 as past admit, total 9.0/direct 3.0 on admit. No schistocyte seen, +spherocytes, Suspect extravascular hemolysis + underlying hepatic dysfunction impairing clearance - Bili downtrending --> Tb 3.0 (dbili 1.1) 06/21 - CT-A/P: Diffuse peritoneal stranding, increased from prior exam, may represent nonspecific inflammatory or infectious process. Cirrhosis and splenomegaly. - 03/12/21 Liver US: Liver heterogenous and coarse with lobulated contour, 20cm length, no focal mass, no itrahepatic duct dilation. GB without wall thickening/edema. CBD normal 4mm. IVC patent. - Rosuvastatin held for hepatic dysfunction - Alpha antitrypsin pending - GI consulted. LIkely 2/2 hemolysis above, no hepatic decompensation. No indication for EGD at this time. CAD w/ PCI x4 last 08/2020, CABG - Hx R-JONO to PDA, L-JONO to LAD, Saph to LCX maginal - 12/2020 Carotid Doppler: 70% R-ICA, 50-69% L ICA stenosis unchagned from 2019 - Home apixaban 5mg held for anemia previously - ASA 81mg continued for high risk with hx stents - Lasix 40mg daily - Isosorbide mononitrate 120mg XR daily - Metoprolol succinate 75mg PO BID - Ranolazine held for potential hematopoetic suppression - Spironolactone 100mg daily previously held with ?ASHOK - Rosuvastatin 40mg held for hepatic dysfunction Chronic HF with preserved EF, no acute exacerbation - Reported by [facility], per pts [facility] cardiology review likely not consistent with CHR,but continued on lasix - No acute exacerbation - CXR without pulmonary edema - CAD management as noted - SpO2 goal >90% Paroxysmal Afib - Admitting EKG nsr - Recently d/la DOAC as outpt due to anemia as above - No acute intervention at time of admission, continue home meds including metoprolol Hypothyroidism - Synthroid 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 - trazodone 50mg qHS PRN for sleep --> melatonin 3mg PO qHS PRN T2DM - Home insulin: aspart up to 230u daily via omnipod - BSG monitor malfunctioning in ER, will place on AC/HS and sliding scale - Pt reports home total daily dose of ~127 units - Basal 22u BID, CF 20, Carb ratio 6. CKD - baseline cr ~2.8-3.0 - Cr 2.65 on outpt lab - Admit cr 2.68 - Cr downtrending 06/21. - Has not needed dialysis. Has discussed fistula placement, but have deferred so far as her function had been stable. Would want a tunneled catheter in an emergency. She notes her family is adamantly opposed to dialysis, she is not sure which she would want. - BMP daily, renally dose medications - Follow I&O. 2 unmeasured voids today. 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 5mg HLD - Statin held as noted GERD - On PPI as previously noted - EGD as noted, no abnormalities/varices COPD/Asthma - No hx tobacco abuse - Alpha antitrypsin pending - continued home inhalers - No wheezing on exam, no acute exacerbation KEREN on CPAP 7mmH2O - Continue CPAP (2) Arteriosclerotic cardiovascular disease (ASCVD): (3) Asthma: (4) Bilateral carotid artery disease: (5) CAD (coronary artery disease): (6) Carotid stenosis: (7) Controlled type 2 diabetes mellitus with kidney complication, with long-term current use of insulin: (8) Heart failure with preserved ejection fraction: (9) Hepatic cirrhosis: (10) Hypercholesterolemia: (11) Hypertension: (12) Hypothyroidism: (13) Obesity, Class II, BMI 35-39.9: (14) Paroxysmal atrial fibrillation: (15) Pancytopenia: (16) Splenomegaly: (17) 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 Discharge Plan Discharge Items Patient Disposition: Home - Self-Care Reason For Visit: ACUTE ANEMIA, HX CIRRHOSIS Discharge Diagnosis: Autoimmune hemolytic anemia Activity: Resume your previous activity Non-emergency contact: Primary Care Provider and Oncologist Call non-emergency contact if: you have any medication questions and your symptoms worsen Follow-up/Referrals: Mindi Antoine MD [Primary Care Provider] - Marleny Yousif MD [Physician] - Diet: Regular and Carb Consistent or DM2 Addtl Attending Provider Instructions: You are seen in the hospital for jaundice and low blood counts. You are found to have autoimmune mediated hemolytic anemia. You were started on high-dose steroids and clinically improved. You did receive 2 units of packed red blood cells with appropriate rise in your blood counts from 6.2-8.5, these continued to go up on their own to 9.2 over the next 24 hours. Your CAT scan of your abdomen did show some nonspecific stranding which can suggest infection, inflammation, or irritation. Some transient left lower quadrant pain which resolved. Your case was discussed with hematology/oncology. It is recommended that you have repeat imaging, however given your underlying kidney disease and clinical resolution of symptoms it was recommended that you have a outpatient follow-up after several days with consideration of imaging including repeat CT versus PET scan given history of cancer. This will be followed up on at your oncology appointment. You have been prescribed prednisone. Please take prednisone 100 mg by mouth daily. You will be advised on dose changes or tapers by hematology oncology at your follow-up appointment. You have not been prescribed any antibiotics at this time. Your gabapentin and ranolazine have been temporarily held, please discuss these at followup Your apixaban has been continued as your hemolytic anemia was intravascular and improving, and you are at increased risk of blood clots both due to your autoimmune hemolytic anemia and history of A. fib. If you develop any clinical signs of bleeding, or your blood levels drop please discuss this with your outpatient providers, or return to the ER for reassessment Follow-up appointments with your PCP and hematology oncology are being scheduled as above. Should be seen by hematology within 1 week If you develop any new or worsening symptoms including fever, chills, sweats, chest pain, chest pressure, difficulty breathing, uncontrolled nausea/vomiting, rash, wheezing, passing out or nearly passing out, bleeding, black/bloody bowel movements, or other new or concerning symptoms please call your primary care physician, or call 911 for re-evaluation in the emergency department if you are very concerned. Pending Studies at Discharge: No Stand-Alone Forms: My [facility] Ixchelsis, Smoking Cessation Medications and DC Order Prescriptions: New prednisone 50 mg Tablet 100 mg PO DAILY 7 Days Qty: 14 RF: 2 Continued (DME) Omnipod Classic Pods (Gen 3) Cartridge See Dose Instructions .ROUTE .MEDSUPPLY Qty: 180 RF: 3 (DME) Omnipod Dash Pods (Gen 4) Cartridge See Rx Instructions .ROUTE .MEDSUPPLY Qty: 90 RF: 3 levothyroxine 88 mcg tablet 88 mcg PO QAM Qty: 90 RF: 1 insulin aspart U-100 [Novolog U-100 Insulin aspart] 100 unit/mL solution 230 unit subcut DAILY 90 Days Qty: 207 RF: 3 (DME) Dexcom G6 Sensor Device See Rx Instructions .Route Qty: 1 RF: 0 apixaban 5 mg tablet 5 mg PO BID Qty: 180 RF: 3 Hold Instructions: on hold from hosp d/c spironolactone 100 mg tablet 100 mg PO QAM Qty: 90 RF: 1 Hold Instructions: on hold from hospital d/c Spiriva with HandiHaler 18 mcg capsule, w/inhalation device 1 cap INHALATION QAM 90 Days Qty: 90 RF: 1 trazodone 50 mg tablet 50 mg PO HS Qty: 90 RF: 1 nitroglycerin 0.4 mg tablet, sublingual 0.4 mg sublingual Q5M PRN (Reason: chest pain) Qty: 30 RF: 2 metoprolol succinate 50 mg tablet extended release 24 hr 75 mg PO BID Qty: 270 RF: 3 furosemide [Lasix] 40 mg tablet 40 mg PO QAM Qty: 120 RF: 3 olopatadine 0.1 % drops 1 drp OPHTHALMIC (EYE) BID PRN (Reason: AFFECTED EYE with allergies) Qty: 10 RF: 1 Breo Ellipta 200-25 mcg/dose blister with device 1 inh INH QAM Qty: 180 RF: 1 levalbuterol HCl 1.25 mg/3 mL solution for nebulization 1.25 mg INHALATION TID PRN (Reason: ASTHMA) Qty: 810 RF: 1 albuterol sulfate [Ventolin HFA] 90 mcg/actuation HFA aerosol inhaler 2 puff INHALATION Q4 PRN (Reason: Shortness Of Breath Or Wheezing) Qty: 54 RF: 2 calcitriol 0.25 mcg capsule 0.25 mcg PO 3XWK Qty: 45 RF: 3 (DME) Oxygen Home Liters Per Minute See Rx Instructions .Route Qty: 1 RF: 0 (DME) FreeStyle Test Strip See Dose Instructions .ROUTE .MEDSUPPLY RF: 0 pantoprazole 40 mg tablet,delayed release (DR/EC) 40 mg PO BID RF: 0 sucralfate 1 gram tablet 1 g PO QID PRN (Reason: Acid Reflux) RF: 0 isosorbide mononitrate 120 mg tablet extended release 24 hr 120 mg PO QAM RF: 0 aspirin 81 mg capsule 81 mg PO QAM RF: 0 famotidine 20 mg tablet 20 mg PO BID RF: 0 sertraline 100 mg tablet 100 mg PO QAM RF: 0 amlodipine [Norvasc] 5 mg tablet 10 mg PO QAM RF: 0 tramadol 50 mg tablet 50 mg PO Q6H PRN (Reason: Pain) Qty: 60 RF: 0 ferrous sulfate 325 mg (65 mg iron) tablet 325 mg PO QAM RF: 0 fexofenadine [Chelsie Allergy] 180 mg Tablet 180 mg PO DAILY PRN (Reason: ALLERGIES) RF: 0 ipratropium bromide 0.03 % [place],Non-Aerosol 1 spray INTRANASAL UD PRN (Reason: sinus congestion) RF: 0 Caltrate 600 plus D 600 mg (1,500 mg)-800 unit Tablet,Chewable 1 tab PO QAM RF: 0 cyanocobalamin (vitamin B-12) 500 mcg tablet 1,000 mcg PO QAM RF: 0 sodium bicarbonate 650 mg tablet 650 mg PO QAM RF: 0 rosuvastatin 40 mg tablet 40 mg PO QAM RF: 0 Hold Instructions: Jaundice cholecalciferol (vitamin D3) 25 mcg (1,000 unit) tablet 25 mcg PO QAM RF: 0 montelukast 10 mg tablet 10 mg PO HS RF: 0 Discontinued gabapentin 100 mg capsule 100 mg PO BID Qty: 180 RF: 1 Hold Instructions: pancytopenia ranolazine [Ranexa] 1,000 mg tablet extended release 12 hr 1,000 mg PO BID Qty: 180 RF: 3 Hold Instructions: pancytopenia Discharge Orders: Discharge Order (Routine); Ordered 06/23/21 Ordered By: Nate Parnell Admission Data Admit Date/Time: 06/20/21 15:08 Attending Provider: Nate Parnell Admit Provider: Nate Parnell Primary Care Provider: Mindi Antoine Other Providers: Nate Parnell ; Marleny Yousif ; Tenzin Palma Coding Level of Care Code D/C DAY MANAGEMENT >30 MINS Diagnoses Anemia D64.9 Arteriosclerotic cardiovascular disease (ASCVD) I25.10 Asthma J45.909 Bilateral carotid artery disease I77.9 CAD (coronary artery disease) I25.10 Carotid stenosis I65.29 Controlled type 2 diabetes mellitus with kidney complication, with long-term current use of insulin E11.29; Z79.4 Heart failure with preserved ejection fraction I50.30 Hepatic cirrhosis K74.69 Hepatic cirrhosis type: other cirrhosis Hypercholesterolemia E78.00 Hypertension I10 Hypothyroidism E03.9 Obesity, Class II, BMI 35-39.9 E66.9 Paroxysmal atrial fibrillation I48.0 Pancytopenia D61.818 Splenomegaly R16.1 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
== END 2021-06-23 14:27 | disposition home or self-care (01) | DRG 809 ==
LOC: ED 10:04 → 2W 15:08

== ENCOUNTER 2021-08-28 05:13 | Inpatient (IN) ==
[2021-08-28] MEDS ORDERED: ALBUT/IPRATROP 3MG/0.5MG NEB 3 ML VIAL NEB STA (05:26)
[2021-08-28] MEDS ORDERED: SODIUM CHLORIDE 0.9% 1000ML 500 ML IV ONE (05:28)
--- NOTE | 2021-08-28 05:28 | Emergency Department Note ---
Impression & Plan Hypoxia ADMIT ED Provider Note HPI: The patient is a 71-year-old female with history of paroxysmal atrial fibrillation, on anticoagulation, anemia, chronic kidney disease, diabetes, nonalcoholic steatohepatitis, KEREN, presents to the emergency department with a chief complaint of shortness of breath. Patient states that her symptoms began overnight while she was attempting to sleep. Patient denies any chest pain, states that she feels an increase sensation of work of breathing. On arrival here to the ED the patient is febrile at 38.5, she is mildly tachycardic at 110, slight increased work of breathing but saturating at 92% on room air, blood pressure 160/90. ROS: -Pulmonary: Shortness of breath -General: Fever *10 point review systems was conducted and is otherwise negative unless stated above *Outpatient medications and allergy history reviewed PE: General: Alert, obese HEENT: Normocephalic, atraumatic Eyes: Extraocular eye movement is intact, no scleral erythema Pulmonary: Diminished air movement bilaterally with expiratory wheezing Cardio: Regular rate and rhythm GI: Abdomen is soft, nontender : No suprapubic tenderness MSK: No evidence of trauma or malformation of the extremities, no edema Skin: Jaundice appearance Neuro: Alert, no focal deficits 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: - An order was placed for continuous cardiac monitoring - Patient was noted to be in sinus rhythm with rate of 110 EKG: Rate: 99 Rhythm: Sinus rhythm Intervals: Within normal limits ST changes: No ST elevation Time: 0521 Medical Decision Making: Patient presented to the emergency department with increased work of breathing, she has diminished air movement bilaterally with some expiratory wheezing on arrival, patient was given a DuoNeb breathing treatment, IV was established, patient was placed on member service specialist, she did have a desaturation here in the ED into the 80s on room air and therefore was placed on nasal cannula oxygen with good improvement. Chest x-ray per my interpretation showed questionable right midlung pneumonia, patient was febrile on arrival, COVID-19 testing was negative. Blood cultures were drawn here in the ED, lab work does not show any leukocytosis but does show slight left shift, work otherwise shows an elevated high-sensitivity troponin level at 116, patient denies any chest pain, no ischemic changes noted on EKG. Baseline renal failure and elevated bilirubin level as well as baseline thrombocytopenia. Blood glucose was noted to be 47, patient was given an amp of D50 here in the ED, her mentation was clear throughout her stay here in the ED despite her hypoglycemic episode. Patient was treated with IV ceftriaxone and IV azithromycin given fever, hypoxia, increased work of breathing. Also has had a cough. Patient was given a 500 cc bolus of normal saline and none further secondary to concern for potential fluid overload and hemodynamic stability with improvement in tach ycardia. Given the patient's hypoxia, fever, and tachycardia on presentation, [facility] hospitalist service was consulted for admission. Case was discussed with Dr. Harper. Patient was in agreement with above plan and she was admitted in improved condition. * CRITICAL CARE TIME: 50min -Stabilization of hypoxia with oxygen saturations less than 90% on room air requiring nasal cannula oxygen for improvement, time spent at the bedside, interpretation of diagnostic studies and arrangement of admission Diagnosis: 1. Hypoxia 2. Fever 3. Leukocytosis 4. Dyspnea 5. Elevated high-sensitivity troponin level 6. Renal failure, chronic 7. Thrombocytopenia Disposition: ADMIT Ruddy Greenwood, DO Emergency Medicine Past Med/Surg History Medical History Acute kidney injury superimposed on chronic kidney disease Antiplatelet or antithrombotic long-term use Asymptomatic carotid artery stenosis Bilateral carotid artery disease Bradycardia CAD (coronary artery disease) Carotid stenosis monitors with Dr Bennett Cerebral arterial aneurysm Cerebral arterial aneurysm "small" behind the right ear - monitors only. [place] [facility] [place] Chest pain due to CAD takes Renexa Chronic reflux esophagitis Congestive heart failure newly dx 01/2021 Controlled type 2 diabetes mellitus with kidney complication, with long-term current use of insulin Diabetic peripheral neuropathy Gastroparesis Hepatic cirrhosis non-alcoholic History of anemia History of anesthesia reaction "my blood pressure bottomed out and they had to use medication and the pads to restart my heart during my ovarian mass surgery at [facility] [place]" ~. History of ASCVD History of asthma History of depression Hypercholesterolemia Hypertension Hypothyroidism Intestinal metaplasia of gastric mucosa Irritable bowel syndrome hx Mitral regurgitation Nausea and vomiting after administration of anesthetic agent KEREN (obstructive sleep apnea) cpap at night Osteoarthritis Osteopenia Paroxysmal atrial fibrillation newly dx 01/2021. follows [address] Dr Bennett, treated with medication currently Pulmonary emphysema 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 Surgical History H/O laparoscopy H/O: hysterectomy History of breast biopsy History of cardiac catheterization History of cataract surgery History of knee replacement Hx of CABG Hx of cataract surgery Hx of colonoscopy (~2013) S/P nasal surgery Status post breast reduction Family History Mother Carotid artery stenosis Breast cancer Heart failure Myocardial infarction Brother Carotid artery stenosis Peripheral vascular disease Stroke syndrome Hx of CABG Sinusitis Asthma Myocardial infarction Environmental allergies Sister Brain cancer Grandmother Myocardial infarction Denies family history of Ovarian cancer Prostate cancer Crohn's disease Bleeding disorder Colorectal cancer Ulcerative colitis Social History (Updated 07/26/21 @ 09:18 by RADHA Manuel) Smoking Status: Never smoker Second Hand Exposure: No; Hx Alcohol Use: No Hx Substance Use: No Preferred Language: Bulgarian Communication Ability: Effective Visual Impairment: No Limitations Hearing Ability: Normal 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: No Beliefs That Will Affect Care: None marital status: Current Living Situation: Spouse 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 How many Children do You have: 1 Feels Safe at Home: Yes Childhood Exposure to Second-Hand Smoke: Yes Dental Care, Regularly: Yes Physical Activity Frequency: Does not Exercise Seatbelt Use: always Sunscreen Use: Yes Assistive Devices: CPAP and Oxygen - Continuous Allergies Allergies Allergy/AdvReac Type Severity Reaction Status Date / Time levofloxacin Allergy Intermediate rash Verified 08/28/21 07:11 enalapril Allergy Unknown DRY COUGH Verified 08/28/21 07:11 insulin detemir Allergy Unknown HIVES Verified 08/28/21 07:11 enalaprilat [From Vasotec] Allergy Unknown Verified 08/28/21 07:11 Home Meds Home Medications Medication Instructions Recorded Confirmed calcium carbonate 600 mg-vitamin 1 tab PO QAM 08/27/18 08/28/21 D3 20 mcg (800 unit) chewable tablet (Caltrate 600 plus D) fexofenadine 180 mg tablet 180 mg PO DAILY PRN ALLERGIES 08/27/18 08/28/21 (Chelsie Allergy) ipratropium bromide 21 mcg (0.03 1 spray intranasal UD PRN sinus 08/27/18 08/28/21 %) nasal spray congestion blood sugar diagnostic (FreeStyle 03/15/19 07/26/21 Test) cholecalciferol (vitamin D3) 25 25 mcg PO QAM 01/28/22 07/19/22 mcg (1,000 unit) tablet cyanocobalamin (vitamin B-12) 500 1,000 mcg PO QAM 03/09/21 08/28/21 mcg tablet rosuvastatin 40 mg tablet 40 mg PO QAM 03/09/21 08/28/21 sodium bicarbonate 650 mg tablet 650 mg PO QAM stomach upset 03/09/21 08/28/21 amlodipine 5 mg tablet (Norvasc) 10 mg PO QAM 06/18/21 08/28/21 aspirin 81 mg capsule 81 mg PO QAM 06/18/21 08/28/21 famotidine 20 mg tablet 20 mg PO BID 06/18/21 08/28/21 ferrous sulfate 325 mg (65 mg 325 mg PO QAM 06/18/21 08/28/21 iron) tablet sertraline 100 mg tablet 100 mg PO QAM 06/18/21 08/28/21 isosorbide mononitrate 120 mg 120 mg PO QAM 06/19/21 08/28/21 tablet,extended release 24 hr pantoprazole 40 mg tablet,delayed 40 mg PO BID 06/19/21 08/28/21 release sucralfate 1 gram tablet 1 g PO QID PRN Acid Reflux 06/19/21 08/28/21 montelukast 10 mg tablet 10 mg PO HS 06/20/21 08/28/21 insulin aspart U-100 100 unit/mL 230 unit subcut UD 08/28/21 08/28/21 subcutaneous solution (Novolog U-100 Insulin aspart) levothyroxine 88 mcg tablet 88 mcg PO DAILYBB 08/28/21 08/28/21 potassium chloride 10 mEq 10 meq PO QAM 08/28/21 08/28/21 tablet,extended release prednisone 20 mg tablet 20 mg PO UD 08/28/21 08/28/21 Previous Rx's Medication Instructions Recorded tramadol 50 mg tablet 50 mg PO Q6H PRN Pain #60 tabs 09/04/18 blood-glucose sensor (Dexcom G6 #1 ea 03/21/21 Sensor) apixaban 5 mg tablet 5 mg PO BID #180 tabs 05/30/21 spironolactone 100 mg tablet 100 mg PO QAM #90 tabs 06/06/21 tiotropium bromide 18 mcg capsule 1 cap inhalation QAM 90 days #90 06/06/21 with inhalation device (Spiriva inhalations with HandiHaler) albuterol sulfate 90 mcg/actuation 2 puff inhalation Q4 PRN Shortness 06/07/21 aerosol inhaler (Ventolin HFA) Of Breath Or Wheezing #54 grams fluticasone furoate 200 1 inh inhalation QAM #180 ea 06/07/21 mcg-vilanterol 25 mcg/dose inhalation powder (Breo Ellipta) furosemide 40 mg tablet (Lasix) 40 mg PO QAM #120 tabs 06/07/21 levalbuterol HCl 1.25 mg/3 mL 1.25 mg (3 mL) inhalation TID PRN 06/07/21 solution for nebulization ASTHMA #810 mL metoprolol succinate 50 mg 75 mg PO BID #270 tabs 06/07/21 tablet,extended release 24 hr olopatadine 0.1 % eye drops 1 drp ophthalmic (eye) BID PRN 06/07/21 AFFECTED EYE with allergies #10 mL Oxygen Home #1 ea 06/18/21 Omnipod Dash Pods (Gen 4) (insulin #90 ea 06/26/21 pump cart,cont inf,BT) trazodone 50 mg tablet 50 mg PO HS #90 tabs 08/10/21 nitroglycerin 0.4 mg sublingual 0.4 mg sublingual Q5M PRN chest 08/22/21 tablet pain #30 tabs Results & Data (ED) Vital Signs Vital Signs - 24 hr 08/28/21 05:17 08/28/21 05:17 08/28/21 05:33 Temperature 38.5 C H Temperature Source Oral Pulse Rate 110 H Pulse Rate from SpO2 Sensor Respiratory Rate 28 H Respiratory Effort / Characteristics Labored Labored Blood Pressure 160/90 H Blood Pressure Mean 113 Pulse Oximetry 92 92 Oxygen Delivery Method Room Air Room Air Oxygen Flow Rate Sepsis New/Unexplained Change in Mental Status N/A Sepsis Action Taken by Nursing No Action Required Oxygen Flow Rate - Titration Pulse Oximetry Post Tiitration 08/28/21 05:41 08/28/21 05:54 08/28/21 05:39 Temperature Temperature Source Pulse Rate 100 H Pulse Rate from SpO2 Sensor Respiratory Rate 32 H Respiratory Effort / Characteristics Blood Pressure 134/65 Blood Pressure Mean 88 Pulse Oximetry 91 88 L 91 Oxygen Delivery Method Room Air Oxygen Flow Rate Sepsis New/Unexplained Change in Mental Status Sepsis Action Taken by Nursing Oxygen Flow Rate - Titration 2 Pulse Oximetry Post Tiitration 93 08/28/21 06:00 08/28/21 06:30 08/28/21 07:00 Temperature 38.1 C H Temperature Source Pulse Rate 104 H 86 103 H Pulse Rate from SpO2 Sensor 89 93 H Respiratory Rate 24 24 28 H Respiratory Effort / Characteristics Blood Pressure 134/75 139/70 126/61 Blood Pressure Mean 94 93 82 Pulse Oximetry 96 97 97 Oxygen Delivery Method Nasal Cannula Nasal Cannula Oxygen Flow Rate 2 2 Sepsis New/Unexplained Change in Mental Status Sepsis Action Taken by Nursing Oxygen Flow Rate - Titration Pulse Oximetry Post Tiitration 08/28/21 07:30 Temperature Temperature Source Pulse Rate 87 Pulse Rate from SpO2 Sensor 92 H Respiratory Rate 29 H Respiratory Effort / Characteristics Blood Pressure Blood Pressure Mean Pulse Oximetry 97 Oxygen Delivery Method Nasal Cannula Oxygen Flow Rate 2 Sepsis New/Unexplained Change in Mental Status Sepsis Action Taken by Nursing Oxygen Flow Rate - Titration Pulse Oximetry Post Tiitration Laboratory Data Result diagrams: 08/28/21 05:35 08/28/21 05:35 Lab Results 08/28/21 08/28/21 08/28/21 Range/Units 05:30 05:30 05:35 WBC 5.35 (4.8-10.8) K/ul RBC 3.44 L (3.93-5.22) M/uL Hgb 9.9 L (12.0-16.0) g/dl Hct 32.4 L (34.1-44.9) % MCV 94.2 (80.0-100.0) fL MCH 28.8 (25.0-34.0) pg MCHC 30.6 L (32.0-36.0) g/dL RDW Std Deviation 74.4 H (36.4-46.3) fL RDW Coeff of Gomez 21.9 H (11.5-14.5) % Plt Count 83 L (130-400) K/uL MPV 12.3 (9.4-12.3) fL Immature Gran % (Auto) 1.7 % Neut % (Auto) 88.2 % Lymph % (Auto) 6.2 % Cole % (Auto) 3.7 % Eos % (Auto) 0.0 % Baso % (Auto) 0.2 % Neut # (Auto) 4.72 (1.4-6.5) K/uL Lymph # (Auto) 0.33 L (1.2-3.4) K/uL Cole # (Auto) 0.20 L (0.24-0.82) K/uL Eos # (Auto) 0.00 (0-0.50) K/uL Baso # (Auto) 0.01 (0-0.2) K/uL Immature Gran # (Auto) 0.09 H (0.00-0.02) K/uL Absolute Nucleated RBC 0.06 H (0-0) K/uL Nucleated RBC % (auto) 1.1 % Polychromasia 1+ Anisocytosis Present Tear Drop Cells 2+ Ovalocytes 1+ PT (9.0-12.0) Seconds INR (0.9-1.1) APTT (21.0-31.0) Seconds PTT Ratio VBG pH (7.36-7.41) VBG pCO2 (38-50) mmHg VBG pO2 mmHg VBG HCO3 mmol/L VBG O2 Saturation % VBG Base Excess mEq/L Sodium (136-145) mmol/L Potassium (3.5-5.1) mmol/L Chloride (98-107) mmol/L Carbon Dioxide (21-32) mmol/L Anion Gap (3-11) BUN (6-23) mg/dl Creatinine (0.6-1.2) mg/dl Est Cr Clr Drug Dosing ml/min Est GFR ( Amer) ml/min Est GFR (Non-Af Amer) ml/min BUN/Creatinine Ratio (10-20) Glucose (70-99(Fasting)) mg/dl POC Glucose (70-99) mg/dl Calcium (8.5-10.1) mg/dl Total Bilirubin (0.2-1.0) mg/dl AST (13-39) U/L ALT (7-52) U/L Alkaline Phosphatase (34-104) U/L Troponin I High Sens (0-14) pg/ml B-Natriuretic Peptide 365 H (0-100) pg/ml Total Protein (6.0-8.3) gm/dl Albumin (3.4-5.0) gm/dl Globulin (2.5-4.0) gm/dl Albumin/Globulin Ratio (0.9-2) Procalcitonin (0-0.5) ng/ml SARS-CoV-2 (PCR) NEGATIVE (Negative) 08/28/21 08/28/21 08/28/21 Range/Units 05:35 05:35 05:35 WBC (4.8-10.8) K/ul RBC (3.93-5.22) M/uL Hgb (12.0-16.0) g/dl Hct (34.1-44.9) % MCV (80.0-100.0) fL MCH (25.0-34.0) pg MCHC (32.0-36.0) g/dL RDW Std Deviation (36.4-46.3) fL RDW Coeff of Gomez (11.5-14.5) % Plt Count (130-400) K/uL MPV (9.4-12.3) fL Immature Gran % (Auto) % Neut % (Auto) % Lymph % (Auto) % Cole % (Auto) % Eos % (Auto) % Baso % (Auto) % Neut # (Auto) (1.4-6.5) K/uL Lymph # (Auto) (1.2-3.4) K/uL Cole # (Auto) (0.24-0.82) K/uL Eos # (Auto) (0-0.50) K/uL Baso # (Auto) (0-0.2) K/uL Immature Gran # (Auto) (0.00-0.02) K/uL Absolute Nucleated RBC (0-0) K/uL Nucleated RBC % (auto) % Polychromasia Anisocytosis Tear Drop Cells Ovalocytes PT 12.4 H (9.0-12.0) Seconds INR 1.2 H (0.9-1.1) APTT 25.1 (21.0-31.0) Seconds PTT Ratio 0.9 VBG pH (7.36-7.41) VBG pCO2 (38-50) mmHg VBG pO2 mmHg VBG HCO3 mmol/L VBG O2 Saturation % VBG Base Excess mEq/L Sodium 139 (136-145) mmol/L Potassium 4.1 (3.5-5.1) mmol/L Chloride 104 (98-107) mmol/L Carbon Dioxide 24 (21-32) mmol/L Anion Gap 11 (3-11) BUN 53 H (6-23) mg/dl Creatinine 2.75 H (0.6-1.2) mg/dl Est Cr Clr Drug Dosing 20.4 ml/min Est GFR ( Amer) 19.5 ml/min Est GFR (Non-Af Amer) 16.8 ml/min BUN/Creatinine Ratio 19.3 (10-20) Glucose 47 L* (70-99(Fasting)) mg/dl POC Glucose (70-99) mg/dl Calcium 8.2 L (8.5-10.1) mg/dl Total Bilirubin 2.9 H (0.2-1.0) mg/dl AST 76 H (13-39) U/L ALT 114 H (7-52) U/L Alkaline Phosphatase 120 H (34-104) U/L Troponin I High Sens 116.5 H* (0-14) pg/ml B-Natriuretic Peptide (0-100) pg/ml Total Protein 6.1 (6.0-8.3) gm/dl Albumin 3.1 L (3.4-5.0) gm/dl Globulin 3.0 (2.5-4.0) gm/dl Albumin/Globulin Ratio 1.0 (0.9-2) Procalcitonin 0.44 (0-0.5) ng/ml SARS-CoV-2 (PCR) (Negative) 08/28/21 08/28/21 Range/Units 05:45 07:18 WBC (4.8-10.8) K/ul RBC (3.93-5.22) M/uL Hgb (12.0-16.0) g/dl Hct (34.1-44.9) % MCV (80.0-100.0) fL MCH (25.0-34.0) pg MCHC (32.0-36.0) g/dL RDW Std Deviation (36.4-46.3) fL RDW Coeff of Gomez (11.5-14.5) % Plt Count (130-400) K/uL MPV (9.4-12.3) fL Immature Gran % (Auto) % Neut % (Auto) % Lymph % (Auto) % Cole % (Auto) % Eos % (Auto) % Baso % (Auto) % Neut # (Auto) (1.4-6.5) K/uL Lymph # (Auto) (1.2-3.4) K/uL Cole # (Auto) (0.24-0.82) K/uL Eos # (Auto) (0-0.50) K/uL Baso # (Auto) (0-0.2) K/uL Immature Gran # (Auto) (0.00-0.02) K/uL Absolute Nucleated RBC (0-0) K/uL Nucleated RBC % (auto) % Polychromasia Anisocytosis Tear Drop Cells Ovalocytes PT (9.0-12.0) Seconds INR (0.9-1.1) APTT (21.0-31.0) Seconds PTT Ratio VBG pH 7.45 H (7.36-7.41) VBG pCO2 40 (38-50) mmHg VBG pO2 22 mmHg VBG HCO3 28 mmol/L VBG O2 Saturation < 60.0 % VBG Base Excess 3.5 mEq/L Sodium (136-145) mmol/L Potassium (3.5-5.1) mmol/L Chloride (98-107) mmol/L Carbon Dioxide (21-32) mmol/L Anion Gap (3-11) BUN (6-23) mg/dl Creatinine (0.6-1.2) mg/dl Est Cr Clr Drug Dosing ml/min Est GFR ( Amer) ml/min Est GFR (Non-Af Amer) ml/min BUN/Creatinine Ratio (10-20) Glucose (70-99(Fasting)) mg/dl POC Glucose 225 H (70-99) mg/dl Calcium (8.5-10.1) mg/dl Total Bilirubin (0.2-1.0) mg/dl AST (13-39) U/L ALT (7-52) U/L Alkaline Phosphatase (34-104) U/L Troponin I High Sens (0-14) pg/ml B-Natriuretic Peptide (0-100) pg/ml Total Protein (6.0-8.3) gm/dl Albumin (3.4-5.0) gm/dl Globulin (2.5-4.0) gm/dl Albumin/Globulin Ratio (0.9-2) Procalcitonin (0-0.5) ng/ml SARS-CoV-2 (PCR) (Negative) Administered Medications Discontinued Medications Albuterol (Albut/Ipratrop 3mg/0.5mg Neb 3 Ml Vial) 3 ml NEB NOW STA; Protocol Stop: 08/28/21 05:27 Last Admin: 08/28/21 05:39 Dose: 3 ml Documented By: SONIA Dextrose (Dextrose 50% 50 Ml Syringe) 50 ml IV NOW ONE Stop: 08/28/21 06:33 Last Admin: 08/28/21 06:35 Dose: 50 ml Documented By: SONIA Sodium Chloride (Nss 1000ml) 500 mls @ 999 mls/hr IV .Q31M ONE Stop: 08/28/21 05:58 Last Infusion: 08/28/21 06:30 Dose: 0 mls/hr Documented By: Admin: 08/28/21 05:39 Dose: 999 mls/hr Documented By: SONIA Ceftriaxone Sodium (Rocephin) 1,000 mg in 50 mls @ 100 mls/hr IV NOW STA Stop: 08/28/21 07:21 Last Admin: 08/28/21 07:20 Dose: 100 mls/hr Documented By: ANTWAN Imaging Data Radiologist's Impression: Chest X-Ray 08/28/21 05:17 XR chest 1V portable CLINICAL HISTORY: Dyspnea TECHNIQUE: Single frontal radiograph of the chest was obtained. Comparison: Comparison is made to chest radiograph on 1121 FINDINGS: Median sternotomy wires are stable including fractured wires. Cardiomegaly is noted. Atelectasis is seen in the left lung otherwise clear. No evidence of pleural effusion or pneumothorax. IMPRESSION: No acute abnormalities and in particular no evidence of pneumonia. ACT 112: Negative or not required by law. Electronically signed by: Helio Davalos M.D. 08/28/2021 7:01 AM Discharge Plan Visit Data Chief Complaint: Shortness of Breath/Dyspnea Stated Complaint: SOB/WEAKNESS ED Provider: Ruddy Greenwood Discharge Problem: Hypoxia Forms Stand Alone Forms: My [facility] [employer] Prescriptions Prescriptions: No Action (DME) Dexcom G6 Sensor Device See Rx Instructions .Route Qty: 1 0RF Rx Instructions: As directed apixaban 5 mg tablet 5 mg PO BID Qty: 180 3RF Hold Instructions: on hold from hosp d/c spironolactone 100 mg tablet 100 mg PO QAM Qty: 90 1RF Hold Instructions: on hold from hospital d/c Spiriva with HandiHaler 18 mcg capsule, w/inhalation device 1 cap INHALATION QAM 90 Days Qty: 90 1RF metoprolol succinate 50 mg tablet extended release 24 hr 75 mg PO BID Qty: 270 3RF furosemide [Lasix] 40 mg tablet 40 mg PO QAM Qty: 120 3RF Rx Instructions: Take an additional 40 mg tablet on days with weight gain of 2 pounds or more in one day olopatadine 0.1 % drops 1 drp OPHTHALMIC (EYE) BID PRN (Reason: AFFECTED EYE with allergies) Qty: 10 1RF Breo Ellipta 200-25 mcg/dose blister with device 1 inh INH QAM Qty: 180 1RF levalbuterol HCl 1.25 mg/3 mL solution for nebulization 1.25 mg INHALATION TID PRN (Reason: ASTHMA) Qty: 810 1RF albuterol sulfate [Ventolin HFA] 90 mcg/actuation HFA aerosol inhaler 2 puff INHALATION Q4 PRN (Reason: Shortness Of Breath Or Wheezing) Qty: 54 2RF (DME) Oxygen Home Liters Per Minute See Rx Instructions .Route Qty: 1 0RF Rx Instructions: As directed 4L NC and up to 6L with ambulation (DME) Omnipod Dash Pods (Gen 4) Cartridge See Rx Instructions .Route Qty: 90 3RF Rx Instructions: change every 24 hrs trazodone 50 mg tablet 50 mg PO HS Qty: 90 1RF nitroglycerin 0.4 mg tablet, sublingual 0.4 mg sublingual Q5M PRN (Reason: chest pain) Qty: 30 2RF Rx Instructions: until response; do not exceed 3 doses per episode (DME) FreeStyle Test Strip See Dose Instructions .ROUTE .MEDSUPPLY Dose Instruction: As directed Rx Instructions: Test blood sugars 3 times a day pantoprazole 40 mg tablet,delayed release (DR/EC) 40 mg PO BID sucralfate 1 gram tablet 1 g PO QID PRN (Reason: Acid Reflux) isosorbide mononitrate 120 mg tablet extended release 24 hr 120 mg PO QAM aspirin 81 mg capsule 81 mg PO QAM famotidine 20 mg tablet 20 mg PO BID sertraline 100 mg tablet 100 mg PO QAM Rx Instructions: TAKE 1 daily amlodipine [Norvasc] 5 mg tablet 10 mg PO QAM tramadol 50 mg tablet 50 mg PO Q6H PRN (Reason: Pain) Qty: 60 0RF ferrous sulfate 325 mg (65 mg iron) tablet 325 mg PO QAM fexofenadine [Chelsie Allergy] 180 mg Tablet 180 mg PO DAILY PRN (Reason: ALLERGIES) ipratropium bromide 0.03 % [place],Non-Aerosol 1 spray INTRANASAL UD PRN (Reason: sinus congestion) Caltrate 600 plus D 600 mg (1,500 mg)-800 unit Tablet,Chewable 1 tab PO QAM cyanocobalamin (vitamin B-12) 500 mcg tablet 1,000 mcg PO QAM sodium bicarbonate 650 mg tablet 650 mg PO QAM rosuvastatin 40 mg tablet 40 mg PO QAM Hold Instructions: Jaundice Rx Instructions: TAKE 1 TABLET BY MOUTH EVERY DAY cholecalciferol (vitamin D3) 25 mcg (1,000 unit) tablet 25 mcg PO QAM montelukast 10 mg tablet 10 mg PO HS prednisone 20 mg tablet 20 mg PO UD potassium chloride 10 mEq tablet extended release 10 meq PO QAM levothyroxine 88 mcg tablet 88 mcg PO DAILYBB insulin aspart U-100 [Novolog U-100 Insulin aspart] 100 unit/mL solution 230 unit subcut UD Rx Instructions: USE UP TO 230 UNITS PER OMNI POD Referrals Referrals: Mindi Antoine MD [Primary Care Provider] -
[2021-08-28 06:01] LABS: Basophils # (auto) 0.01 K/uL (0-0.2); Basophils % (auto) 0.2 %; Hematocrit (blood only) 32.4 % (34.1-44.9); Hemoglobin 9.9 g/dl (12.0-16.0); Immature Granulocytes # (auto) 0.09 K/uL (0.00-0.02); Immature Granulocytes % (auto) 1.7 %; Lymphocytes # (auto) 0.33 K/uL (1.2-3.4); Lymphocytes % (auto) 6.2 %; Mean Corpuscular Hemoglobin 28.8 pg (25.0-34.0); Mean Corpuscular Hgb Conc 30.6 g/dL (32.0-36.0); Mean Corpuscular Volume 94.2 fL (80.0-100.0); Mean Platelet Volume 12.3 fL (9.4-12.3); Monocytes % (auto) 3.7 %; Neutrophils # (auto) 4.72 K/uL (1.4-6.5); Neutrophils % (auto) 88.2 %; Nucleated RBC # (auto) 0.06 K/uL (0-0); Nucleated RBC % (auto) 1.1 %; Platelet Count 83 K/uL (130-400); RDW Coefficient of Variation 21.9 % (11.5-14.5); RDW Standard Deviation 74.4 fL (36.4-46.3); Red Blood Count 3.44 M/uL (3.93-5.22); White Blood Count 5.35 K/ul (4.8-10.8)
[2021-08-28 06:01] LABS: Base Excess VBG 3.5 mEq/L; HCO3 VBG 28 mmol/L; Oxygen Saturation VBG < 60.0 %; PCO2 VBG 40 mmHg (38-50); PO2 VBG 22 mmHg; pH VBG 7.45 (7.36-7.41)
[2021-08-28 06:22] LABS: INR 1.2 (0.9-1.1); Partial Thromboplastin Ratio 0.9; Partial Thromboplastin Time 25.1 Seconds (21.0-31.0); Prothrombin Time 12.4 Seconds (9.0-12.0)
[2021-08-28 06:27] LABS: Anisocytosis Present; Ovalocytes 1+; Polychromasia 1+; Tear Drop Cells 2+
[2021-08-28] MEDS ORDERED: DEXTROSE 50% 50 ML SYRINGE IV ONE (06:32)
[2021-08-28 06:33] LABS: Bilirubin,Total 2.9 mg/dl (0.2-1.0)
[2021-08-28 06:35] LABS: Albumin Level 3.1 gm/dl (3.4-5.0); BUN Creatinine Ratio 19.3 (10-20); Calcium 8.2 mg/dl (8.5-10.1); Creatinine Clr Calc Pharmacy 20.4 ml/min; Est GFR (African American) 19.5 ml/min; Est GFR (Non-African American) 16.8 ml/min; Potassium 4.1 mmol/L (3.5-5.1); Total Protein 6.1 gm/dl (6.0-8.3); Troponin I High Sensitivity 116.5 pg/ml (0-14)
[2021-08-28] MEDS ORDERED: cefTRIAXone SODIUM 1,000 MG/50 ML BAG IV STA (06:52)
[2021-08-28] MEDS ORDERED: AZITHROMYCIN 500 MG in DEXTROSE 5% 250 ML IV ONE (06:52)
--- NOTE | 2021-08-28 07:02 | XRay Report ---
XR chest 1V portable CLINICAL HISTORY: Dyspnea TECHNIQUE: Single frontal radiograph of the chest was obtained. Comparison: Comparison is made to chest radiograph on 112 FINDINGS: Median sternotomy wires are stable including fractured wires. Cardiomegaly is noted. Atelectasis is s een in the left lung otherwise clear. No evidence of pleural effusion or pneumothorax. IMPRESSION: No acute abnormalities and in particular no evidence of pneumonia. ACT 112: Negative or not required by law. Electronically signed by: Helio Davalos M.D. 08/28/2021 7:01 AM
--- NOTE | 2021-08-28 09:32 | History & Physical Report ---
Date of Service August 28, 2021 Assessment & Plan (1) Hypoxia: Plan: Acute on chronic respiratory failure with hypoxia Presents with fever worsening x-ray changes although not corroborated by radiology by my inspection does have increased basilar infiltrates consistent with pneumonia Blood culture sputum culture sent ceftriaxone azithromycin continues History of heart failure preserved ejection fraction patient does not appear to be in acute heart failure, however may have right-sided volume overload due to her obstructive sleep apnea and cor pulmonale. Patient was given 500 mL of fluid in the ER. This time her saturations are only required monitor augmenta tion given her chronic kidney disease stage IV we will not initiate additional diuretic therapy in addition to her 40 of Lasix a day unless we need to. (2) Elevated troponin: Plan: Patient's elevated troponin is without associated cardiac symptoms. She does have nonspecific EKG changes. We will repeat a high-sensitivity troponin in the morning and check a morning EKG and echocardiography. She is maintained on her daily 81 mg of aspirin, plus isosorbide 120, metoprolol succinate 75 twice daily (3) Controlled type 2 diabetes mellitus with neurologic complication, with long- term current use of insulin: Plan: endorgan damage including chronic kidney disease stage IV Multiple episodes of hypoglycemia in the ER with need to discontinue patient's monitor and pump and lieu of sliding scale insulin and pharmacy consult. (4) Anemia: Plan: Patient has a history of pancytopenic and being followed by hematology at the [facility]. She has evidence of cirrhosis on imaging and some splenomegaly She receives infusions of iron currently her hemoglobin is 9 g (higher than baseline) and a platelet count slightly low at 83 Patient is typically on prednisone tapering dose this will be continued after 24 hours of hydrocortisone (5) Paroxysmal atrial fibrillation: Plan: Patient has a history of paroxysmal atrial fibrillation is chronically anticoagulated with apixaban 5 twice daily, rate controlled with metoprolol 75 twice daily succinate Patient has history of coronary artery disease and heart failure preserved ejection fraction. 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 Patient has worrisome morphology of her liver for cirrhosis and likely based on fatty liver. She was recently been on steroids and also previously been on rituximab to try to help her anemia and thrombocytopenia. [facility] she has not been with much response to these however she remains on prednisone tapering dose. Her who is at the bedside says over the last 2 weeks she has had decline in her function with her legs giving out on her. She does not describe radicular pain or neuropathy to her legs but she has profound weakness. She has a low-grade temperature in the ER negative COVID and bio fire however she has a mild infiltrate at the right base although not corroborated by radiology I do believe I see this. She also has an abnormal urinalysis. In the emergency department cultures were obtained she is placed on ceftriaxone and azithromycin which will be continued. She has a history of some abdominal ascites and an ultrasound was undertaken did see if there was enough to tap but this appears that her ascitic volume is low At this point in time the patient's being admitted with possible community- acquired pneumonia, chronic prednisone use with possible myopathy, and abnormal urinalysis as a potential source of her infection. Incidentally she has elevation of her high-sensitivity troponin and nonspecific EKG changes she is on an aspirin and her EKG and troponin will be repeated in the morning Allergies Allergy/AdvReac Type Severity Reaction Status Date / Time levofloxacin Allergy Intermediate rash Verified 08/28/21 07:11 enalapril Allergy Unknown DRY COUGH Verified 08/28/21 07:11 insulin detemir Allergy Unknown HIVES Verified 08/28/21 07:11 enalaprilat [From Vasotec] Allergy Unknown Verified 08/28/21 07:11 Home Medications Medication Instructions Recorded Confirmed Type calcium carbonate 600 mg-vitamin 1 tab PO QAM 08/27/18 08/28/21 History D3 20 mcg (800 unit) chewable tablet (Caltrate 600 plus D) fexofenadine 180 mg tablet 180 mg PO DAILY PRN ALLERGIES 08/27/18 08/28/21 History (Chelsie Allergy) ipratropium bromide 21 mcg (0.03 1 spray intranasal UD PRN sinus 08/27/18 08/28/21 History %) nasal spray congestion tramadol 50 mg tablet 50 mg PO Q6H PRN Pain #60 tabs 09/04/18 08/28/21 Rx blood sugar diagnostic (FreeStyle 03/15/19 07/26/21 History Test) cholecalciferol (vitamin D3) 25 25 mcg PO QAM 03/09/21 08/28/21 History mcg (1,000 unit) tablet cyanocobalamin (vitamin B-12) 500 1,000 mcg PO QAM 03/09/21 08/28/21 History mcg tablet rosuvastatin 40 mg tablet 40 mg PO QAM 03/09/21 08/28/21 History sodium bicarbonate 650 mg tablet 650 mg PO QAM stomach upset 03/09/21 08/28/21 History blood-glucose sensor (Dexcom G6 #1 ea 03/21/21 07/26/21 Rx Sensor) apixaban 5 mg tablet 5 mg PO BID #180 tabs 05/30/21 08/28/21 Rx spironolactone 100 mg tablet 100 mg PO QAM #90 tabs 06/06/21 08/28/21 Rx tiotropium bromide 18 mcg capsule 1 cap inhalation QAM 90 days #90 06/06/21 08/28/21 Rx with inhalation device (Spiriva inhalations with HandiHaler) albuterol sulfate 90 mcg/actuation 2 puff inhalation Q4 PRN Shortness 06/07/21 08/28/21 Rx aerosol inhaler (Ventolin HFA) Of Breath Or Wheezing #54 grams fluticasone furoate 200 1 inh inhalation QAM #180 ea 06/07/21 08/28/21 Rx mcg-vilanterol 25 mcg/dose inhalation powder (Breo Ellipta) furosemide 40 mg tablet (Lasix) 40 mg PO QAM #120 tabs 06/07/21 08/28/21 Rx levalbuterol HCl 1.25 mg/3 mL 1.25 mg (3 mL) inhalation TID PRN 06/07/21 08/28/21 Rx solution for nebulization ASTHMA #810 mL metoprolol succinate 50 mg 75 mg PO BID #270 tabs 06/07/21 08/28/21 Rx tablet,extended release 24 hr olopatadine 0.1 % eye drops 1 drp ophthalmic (eye) BID PRN 06/07/21 08/28/21 Rx AFFECTED EYE with allergies #10 mL Oxygen Home #1 ea 06/18/21 07/26/21 Rx amlodipine 5 mg tablet (Norvasc) 10 mg PO QAM 06/18/21 08/28/21 History aspirin 81 mg capsule 81 mg PO QAM 06/18/21 08/28/21 History famotidine 20 mg tablet 20 mg PO BID 06/18/21 08/28/21 History ferrous sulfate 325 mg (65 mg 325 mg PO QAM 06/18/21 08/28/21 History iron) tablet sertraline 100 mg tablet 100 mg PO QAM 06/18/21 08/28/21 History isosorbide mononitrate 120 mg 120 mg PO QAM 06/19/21 08/28/21 History tablet,extended release 24 hr pantoprazole 40 mg tablet,delayed 40 mg PO BID 06/19/21 08/28/21 History release sucralfate 1 gram tablet 1 g PO QID PRN Acid Reflux 06/19/21 08/28/21 History montelukast 10 mg tablet 10 mg PO HS 06/20/21 08/28/21 History Omnipod Dash Pods (Gen 4) (insulin #90 ea 06/26/21 07/26/21 Rx pump cart,cont inf,BT) trazodone 50 mg tablet 50 mg PO HS #90 tabs 08/10/21 08/28/21 Rx nitroglycerin 0.4 mg sublingual 0.4 mg sublingual Q5M PRN chest 08/22/21 08/28/21 Rx tablet pain #30 tabs insulin aspart U-100 100 unit/mL 230 unit subcut UD 08/28/21 08/28/21 History subcutaneous solution (Novolog U-100 Insulin aspart) levothyroxine 88 mcg tablet 88 mcg PO DAILYBB 08/28/21 08/28/21 History potassium chloride 10 mEq 10 meq PO QAM 08/28/21 08/28/21 History tablet,extended release prednisone 20 mg tablet 20 mg PO UD 08/28/21 08/28/21 History Past Med/Surg History Medical History Acute kidney injury superimposed on chronic kidney disease Antiplatelet or antithrombotic long-term use Asymptomatic carotid artery stenosis Bilateral carotid artery disease Bradycardia CAD (coronary artery disease) Carotid stenosis monitors with Dr Bennett Cerebral arterial aneurysm Cerebral arterial aneurysm "small" behind the right ear - monitors only. [facility] Chest pain due to CAD takes Renexa Chronic reflux esophagitis Congestive heart failure newly dx 01/2021 Controlled type 2 diabetes mellitus with kidney complication, with long-term current use of insulin Diabetic peripheral neuropathy Gastroparesis Hepatic cirrhosis non-alcoholic History of anemia History of anesthesia reaction "my blood pressure bottomed out and they had to use medication and the pads to restart my heart during my ovarian mass surgery at [facility]" ~. History of ASCVD History of asthma History of depression Hypercholesterolemia Hypertension Hypothyroidism Intestinal metaplasia of gastric mucosa Irritable bowel syndrome hx Mitral regurgitation Nausea and vomiting after administration of anesthetic agent KEREN (obstructive sleep apnea) cpap at night Osteoarthritis Osteopenia Paroxysmal atrial fibrillation newly dx 01/2021. follows with Dr Bennett, treated with medication currently Pulmonary emphysema 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 Surgical History H/O laparoscopy H/O: hysterectomy History of breast biopsy History of cardiac catheterization History of cataract surgery History of knee replacement Hx of CABG Hx of cataract surgery Hx of colonoscopy (~2013) S/P nasal surgery Status post breast reduction Family History Mother Carotid artery stenosis Breast cancer Heart failure Myocardial infarction Brother Carotid artery stenosis Peripheral vascular disease Stroke syndrome Hx of CABG Sinusitis Asthma Myocardial infarction Environmental allergies Sister Brain cancer Grandmother Myocardial infarction Denies family history of Ovarian cancer Prostate cancer Crohn's disease Bleeding disorder Colorectal cancer Ulcerative colitis Social History (Updated 07/26/21 @ 09:18 by RADHA Manuel) Smoking Status: Never smoker Second Hand Exposure: No; Do You Dip or Chew Tobacco: No; Tobacco Cessation Education Requested by Patient: No Hx Alcohol Use: Yes Alcohol type: wine Hx Substance Use: No Preferred Language: Mongolian Communication Ability: Effective Visual Impairment: No Limitations Hearing Ability: Normal Director Global Intelligence Required: No Beliefs That Will Affect Care: None marital status: Current Living Situation: Spouse 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 How many Children do You have: 1 Other Information That Helps Us Care for You: No Feels Safe at Home: Yes Safety Concerns: Feels Safe At This Time Childhood Exposure to Second-Hand Smoke: Yes Dental Care, Regularly: Yes Physical Activity Frequency: Does not Exercise Seatbelt Use: always Sunscreen Use: Yes Assistive Devices: CPAP and Glasses Review of Systems Review of Systems: Moderate distress and fatigue no headache, no visual changes no speech or swallowing issues no chest pain, pressure or palpitations no complaints of shortness of breath, however she objectively appear short of breath in the room just with conversational dyspnea. Nonproductive cough no abdominal pain, nausea or vomiting, no diarrhea or constipation no dysuria, hematuria or frequency does complain of darkened urine lower extremity swelling which is about her baseline no back pain, CVA tenderness or radicular pain no bruising, bleeding or rashes Patient has no focal signs of weakness but claims her legs are too weak to stand and walk no complaints of anxiety or depression.. Physical Exam Physical Exam: The patient appeared in mild to moderate distress her BMI is 38 she appears to be volume overloaded retrospect may be steroid effects with some moonlike facies Vital signs as documented. Head exam is normocephalic atraumatic Neck is without JVD, thyromegaly, or carotid bruits. Lungs are coarse breath sounds at the right base scant at the left base left base clears with deep inspiration Cardiac exam, Rhythm is regular.. No murmurs, rubs or gallops. Abdominal exam reveals normal bowel sounds, soft distended and dull to percussion Extremities are 1-2+ edema bilaterally and both pedal pulses are present Neurologic exam is alert and oriented, no focal loss of strength or sensation Skin is with various aged bruises on her extremities Psychologically is without concerns for anxiety or depression.. Results & Data Results & Data ([facility]) Vital Signs (Past 12 Hours) Vital Signs Temp Pulse Resp BP Pulse Ox O2 Del Method O2 Flow Rate 08/28/21 08:00 89 31 H 117/68 95 08/28/21 07:30 112/62 08/28/21 07:30 87 29 H 97 Nasal Cannula 2 08/28/21 07:00 103 H 28 H 126/61 97 Nasal Cannula 2 08/28/21 06:30 100.6 F H 86 24 139/70 97 08/28/21 06:00 104 H 24 134/75 96 Nasal Cannula 2 08/28/21 05:39 100 H 32 H 134/65 91 08/28/21 05:54 88 L 08/28/21 05:41 91 Room Air 08/28/21 05:33 92 Room Air 08/28/21 05:17 101.3 F H 110 H 28 H 160/90 H 92 Room Air Diagnostic Findings Chest X-Ray 08/28/21 05:17 XR chest 1V portable CLINICAL HISTORY: Dyspnea TECHNIQUE: Single frontal radiograph of the chest was obtained. Comparison: Comparison is made to chest radiograph on 1121 FINDINGS: Median sternotomy wires are stable including fractured wires. Cardiomegaly is noted. Atelectasis is seen in the left lung otherwise clear. No evidence of pleural effusion or pneumothorax. IMPRESSION: No acute abnormalities and in particular no evidence of pneumonia. ACT 112: Negative or not required by law. Electronically signed by: Helio Davalos M.D. 08/28/2021 7:01 AM Abdomen Ultrasound 08/28/21 14:05 ULTRASOUND ASCITES CHECK CLINICAL HISTORY: Abdominal ascites. COMPARISON STUDY: Abdominal CT dated 06/20/2021. FINDINGS: Real-time grayscale sonography of all 4 quadrants of the abdomen is performed to assess for abdominal ascites. There is a small volume of abdominopelvic ascites in all 4 quadrants. The largest pocket is seen in the right upper quadrant around the liver. The liver is cirrhotic in morphology. The spleen is enlarged. IMPRESSION: 1. Small volume abdominopelvic ascites. 2. Cirrhotic liver morphology and splenomegaly. Electronically signed by: Arcadio Sutton M.D. 08/28/2021 4:03 PM ECG Additional Comments: Sinus rhythm with nonspecific lateral T wave changes Code Status & VTE Plan VTE Prophylaxis Plan VTE Prophylaxis will be ordered: Yes PG Care Time/CCT Total # of Minutes Spent Total Time Spent with Patient: Total time spent is greater than 50% in coordination of care (as documented) at patient's floor/unit and/or counseling patient: Coding Level of Care Code 57269 Initial Inpt Care Lvl 3 Diagnoses Hypoxia R09.02 Elevated troponin R77.8 Controlled type 2 diabetes mellitus with neurologic complication, with long-term current use of insulin E11.49; Z79.4 Anemia D64.9 Paroxysmal atrial fibrillation I48.0 Hepatic cirrhosis K74.69 Hepatic cirrhosis type: other cirrhosis 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
[2021-08-28] MEDS ORDERED: NITROGLYCERIN SL 0.4 MG/TAB TAB SL PRN (10:24)
[2021-08-28] MEDS ORDERED: amLODIPine BESYLATE 5 MG TAB PO SCH (10:24)
[2021-08-28] MEDS ORDERED: traMADol HCL 50 MG TABLET PO PRN (10:24)
[2021-08-28] MEDS ORDERED: ALBUTEROL HFA 8 GM INHALER INH PRN (10:24)
[2021-08-28] MEDS ORDERED: LEVALBUTEROL HCL 1.25 MG/3 ML NEB INH PRN (10:24)
[2021-08-28] MEDS ORDERED: FEXOFENADINE HCL 180 MG TAB PO PRN (10:24)
[2021-08-28] MEDS ORDERED: FUROSEMIDE 40 MG TAB PO SCH (10:24)
[2021-08-28] MEDS ORDERED: [UNRECOGNIZED DRUG - REMARK] INTNAS PRN (10:24)
[2021-08-28] MEDS ORDERED: cefTRIAXone SODIUM 1,000 MG in DEXTROSE 5% 50 ML IV ONE (11:15)
[2021-08-28] MEDS: CYANOCOBALAMIN (B-12) 500 MCG TABLET PO SCH (12:22)
[2021-08-28] MEDS: FAMOTIDINE 20 MG TAB PO SCH ×2 (12:22→21:09)
[2021-08-28] MEDS: APIXABAN 5 MG TABLET PO SCH (12:23)
[2021-08-28] MEDS: SERTRALINE HCL 100 MG TABLET PO SCH (12:24)
[2021-08-28] MEDS: POTASSIUM CHLORIDE 10 MEQ TABCR PO SCH (12:24)
[2021-08-28] MEDS: ROSUVASTATIN CALCIUM 20 MG TAB PO SCH (12:25)
[2021-08-28 12:26] LABS: Adenovirus PCR Not Detected (NotDetected); Bordetella parapertussis PCR Not Detected (NotDetected); Bordetella pertussis PCR Not Detected (NotDetected); Chlamydia pneumoniae PCR Not Detected (NotDetected); Coronavirus 229E PCR Not Detected (NotDetected); Coronavirus CoV-2 (COVID19)PCR Not Detected (NotDetected); Coronavirus HKU1 PCR Not Detected (NotDetected); Coronavirus NL63 PCR Not Detected (NotDetected); Coronavirus OC43PCR Not Detected (NotDetected); Human Metapneumovirus PCR Not Detected (NotDetected); Influenza A PCR Not Detected (NotDetected); Influenza B PCR Not Detected (NotDetected); Mycoplasma pneumoniae PCR Not Detected (NotDetected); Parainfluenza Virus 1 PCR Not Detected (NotDetected); Parainfluenza Virus 2 PCR Not Detected (NotDetected); Parainfluenza Virus 3 PCR Not Detected (NotDetected); Parainfluenza Virus 4 PCR Not Detected (NotDetected); Respiratory Syncytial VirusPCR Not Detected (NotDetected); Rhinovirus/Enterovirus PCR Not Detected (NotDetected)
[2021-08-28] MEDS: METOPROLOL SUCC 25MG EXT REL TAB PO SCH ×2 (12:26→21:10)
[2021-08-28] MEDS: SPIRONOLACTONE 100 MG TAB PO SCH (12:27)
[2021-08-28] MEDS: PANTOprazole 40 MG TAB PO SCH ×2 (12:27→21:10)
[2021-08-28] MEDS: FLUTICASONE/VILANTEROL 200/25MCG 14 PUFFS/INHALER INH SCH (12:28)
[2021-08-28] MEDS ORDERED: PHARMACY GLYCEMIC MGMT CONSULT PRN (14:03)
[2021-08-28] MEDS ORDERED: GLUCAGON FOR INJ 1 MG VIAL SQ ONE (14:04)
[2021-08-28] MEDS ORDERED: GLUCOSE 40% GEL 15 GM TUBE PO PRN (14:07)
[2021-08-28] MEDS ORDERED: CARBOHYDRATES FOR HYPOGLYCEMIA PO PRN (14:07)
[2021-08-28] MEDS ORDERED: GLUCAGON FOR INJ 1 MG VIAL SQ PRN (14:07)
[2021-08-28] MEDS ORDERED: GLUCOSE 10 TAB/TUBE PO PRN (14:07)
--- NOTE | 2021-08-28 15:01 | Pharmacy Report ---
Pharmacy Glycemic Short Note 2 - Date of Service August 28, 2021 - Glycemic Short BSG Results (Last 24 hours): 08/28/21 08/28/21 08/28/21 05:35 07:18 10:35 Glucose 47 L* POC Glucose 225 H 33 L* 08/28/21 08/28/21 08/28/21 10:36 11:17 12:36 Glucose POC Glucose 45 L* 100 H 65 L* 08/28/21 08/28/21 08/28/21 13:28 13:30 13:42 Glucose POC Glucose 56 L* 57 L* 66 L* 08/28/21 14:04 Glucose POC Glucose 87 OUTPATIENT ANTIDIABETIC REGIMEN: * Novolog insulin pump (omnipod) -- up to 230 units per day * HbA1c: unreliable in the setting of anemia with regular iron infusions ASSESSMENT: * Ms Kaur is a Type 2 diabetic female admitted with respiratory failure/pna. * She is normally managed on a Novolog pump. Pt was significantly hypoglycemic in the ED, so insulin pump was removed. Pt will be managed with SQ basal/bolus insulin during admission until it is appropriate to resume her pump. * Ms Kaur is ordered IV hydrocortisone and PO prednisone, which are likely to contribute to steroid-induced hyperglycemia. * Given patient's persistent hypoglycemia today, will initiate Novolog with conservative parameters and dose basal insulin this evening based on her BSG. * Will continue to follow and adjust as needed. PLAN FOR INPATIENT GLYCEMIC CONTROL: * Hold outpatient oral diabetes medications * Basal insulin * Lantus 0-30 units SQ this evening, depending on BSG (see EMR for details) * Bolus insulin * NovoLog per scale ACHS or Q6hrs while NPO * Goal Range: Low 110 mg/dL - High 140 mg/dL * Correction Factor: 25 mg/dL/unit * Nutritional / Prandial insulin per carb ratio of 1 unit per 8 grams CHO consumed
[2021-08-28 15:54] LABS: Appearance Urine Cloudy (Clear); Bacteria Urine Automated Negative (Negative); Bilirubin Urine Negative (Negative); Blood Urine 2+ (Negative); Color Urine Dark Yellow; Epithelial Cell Urine Auto 20-30 /lpf (0-5); Glucose Urine UA Negative (Negative); Ketones Urine Negative (Negative); Leukocyte Esterase Urine 1+ (Negative); Nitrite Urine Positive (Negative); Protein Urine 2+ (Negative); Specific Gravity Urine 1.017 (1.000-1.030); Urobilinogen Urine Negative (Negative); pH Urine 5.5 (4.5-7.5)
--- NOTE | 2021-08-28 16:04 | Ultrasound Report ---
ULTRASOUND ASCITES CHECK CLINICAL HISTORY: Abdominal ascites. COMPARISON STUDY: Abdominal CT dated 06/20/2021. FINDINGS: Real-time grayscale sonography of all 4 quadrants of the abdomen is performed to assess for abdominal ascites. There is a small volume of abdominopelvic ascites in all 4 quadrants. The largest pocket is seen in the right upper quadrant around the liver. The liver is cirrhotic in morphology. T he spleen is enlarged. IMPRESSION: 1. Small volume abdominopelvic ascites. 2. Cirrhotic liver morphology and splenomegaly. Electronically signed by: Arcadio Sutton M.D. 08/28/2021 4:03 PM
[2021-08-28 16:09] LABS: RBC Urine Automated 0-4 /hpf (0-4)
--- NOTE | 2021-08-28 17:12 | Electrocardiogram Report ---
Test Reason : Blood Pressure : / mmHG Vent. Rate : 099 BPM Atrial Rate : 099 BPM P-R Int : 112 ms QRS Dur : 060 ms QT Int : 324 ms P-R-T Axes : -05 024 168 degrees QTc Int : 415 ms Poor data quality, interpretation may be adversely affected Sinus rhythm with marked sinus arrhythmia Abnormal ECG When compared with ECG of 20-JUN-2021 11:00, T wave inversion now evident in Lateral leads Confirmed by Michael Thomas ([id number]) on 08/28/2021 5:12:28 PM Referred By: REFERRED SELF Confirmed By:Michael Thomas
[2021-08-28] MEDS: HYDROCORTISONE SOD 50 MG in SYRINGE 0 ML IV SCH ×2 (17:33→23:30)
[2021-08-28] MEDS: INSULIN ASPART PER UNIT SC SCH ×2 (17:34→21:16)
[2021-08-28] MEDS ORDERED: LANTUS PER UNIT CHARGE SQ SCH (21:00)
[2021-08-28] MEDS: MONTELUKAST SODIUM 10 MG TABLET PO SCH (21:10)
[2021-08-28] MEDS: traZODone HCL 50 MG TAB PO SCH (21:11)
[2021-08-29] MEDS: LEVOTHYROXINE SODIUM 88 MCG TABLET PO SCH (05:57)
[2021-08-29] MEDS: HYDROCORTISONE SOD 50 MG in SYRINGE 0 ML IV SCH (06:00)
[2021-08-29 08:11] LABS: Hematocrit (blood only) 22.6 % (34.1-44.9); Hemoglobin 6.9 g/dl (12.0-16.0); Mean Corpuscular Hgb Conc 30.5 g/dL (32.0-36.0); Mean Platelet Volume 12.5 fL (9.4-12.3); Platelet Count 43 K/uL (130-400); Red Blood Count 2.38 M/uL (3.93-5.22); White Blood Count 1.74 K/ul (4.8-10.8)
[2021-08-29] MEDS ORDERED: SODIUM CHLORIDE 0.9% 250 ML IV PRN ×3 (08:22→18:02)
[2021-08-29 08:23] LABS: Troponin I High Sensitivity 98.7 pg/ml (0-14)
[2021-08-29 08:25] LABS: Albumin Level 2.3 gm/dl (3.4-5.0); BUN Creatinine Ratio 19.9 (10-20); Bilirubin Direct 0.8 mg/dl (0-0.2); Bilirubin,Total 1.8 mg/dl (0.2-1.0); Calcium 7.3 mg/dl (8.5-10.1); Creatinine Clr Calc Pharmacy 20.4 ml/min; Est GFR (African American) 19.4 ml/min; Est GFR (Non-African American) 16.7 ml/min; Magnesium 2.2 mg/dl (1.7-2.4); Potassium 4.4 mmol/L (3.5-5.1); Total Protein 4.4 gm/dl (6.0-8.3)
[2021-08-29] MEDS: METOPROLOL SUCC 25MG EXT REL TAB PO SCH ×2 (08:26→20:34)
[2021-08-29] MEDS: CYANOCOBALAMIN (B-12) 500 MCG TABLET PO SCH (08:27)
[2021-08-29] MEDS: FERROUS SULFATE 325 MG TAB PO SCH (08:27)
[2021-08-29] MEDS: UMECLIDINIUM BROMIDE 62.5MCG/BLISTER 7 PUFFS/INHALER INH SCH (08:28)
[2021-08-29] MEDS: FLUTICASONE/VILANTEROL 200/25MCG 14 PUFFS/INHALER INH SCH (08:28)
[2021-08-29] MEDS: CALCIUM 600MG + VIT D 400 IU TAB PO SCH (08:29)
[2021-08-29] MEDS: POTASSIUM CHLORIDE 10 MEQ TABCR PO SCH (08:35)
[2021-08-29 08:36] LABS: Folate (Folic Acid) 21.77 ng/ml (>5.38)
[2021-08-29] MEDS: INSULIN ASPART PER UNIT SC SCH ×2 (08:38→14:01)
[2021-08-29] MEDS: FUROSEMIDE 40 MG/4 ML VIAL IV SCH (08:48)
[2021-08-29] MEDS: cefTRIAXone SODIUM 2,000 MG in DEXTROSE 5% 50 ML IV SCH (08:49)
[2021-08-29] MEDS: AZITHROMYCIN 500 MG in DEXTROSE 5% 250 ML IV SCH (08:49)
[2021-08-29] MEDS: PANTOprazole 40 MG in SYRINGE 0 ML IV SCH ×2 (08:52→20:34)
[2021-08-29] MEDS ORDERED: LANTUS PER UNIT CHARGE SQ SCH (09:00)
[2021-08-29] MEDS ORDERED: ISOSORBIDE MONO EXTENDED REL 60 MG TABCR PO SCH (09:00)
[2021-08-29] MEDS ORDERED: ASPIRIN 81 MG ECTAB PO SCH (09:00)
[2021-08-29 09:22] LABS: Estimated Average Glucose 97 mg/dl
[2021-08-29] MEDS: predniSONE 20 MG TAB PO SCH (09:43)
[2021-08-29] MEDS: SPIRONOLACTONE 100 MG TAB PO SCH (09:44)
[2021-08-29] MEDS: SERTRALINE HCL 100 MG TABLET PO SCH (09:44)
[2021-08-29] MEDS: ROSUVASTATIN CALCIUM 20 MG TAB PO SCH (09:44)
--- NOTE | 2021-08-29 10:31 | Gastrointestinal Consultation ---
Date of Consultation August 29, 2021 Assessment & Plan (1) Anemia: Multifactorial given renal disease, autoimmune hemolytic anemia, and reports of a single episode of blood per rectum. EGD in March was unremarkable and no evidence of esophageal varices. Colonoscopy in 2018 without acute abnormalities. -Continue to monitor H/H -Monitor for further GI bleeding -Continue Protonix 40 mg IV -Will hold off on endoscopic evaluation at present given overall clinical picture. Will monitor for further bleeding. (2) Cirrhosis: MELD score 20. US liver stable. Up to date with HCC surveillance. Up to date with esophageal variceal surveillance. -Continue to monitor MELD labs Supervising Physician Co-Signing Physician Notes Agree with GUILLERMINA Brandt as above Abd: Soft, NT, ND, +BS Continue current therapy and supportive care No overt GI bleeding at present Will follow clinical course and make further recommendations as needed. History of Present Illness Reason for Consultation: Anemia, GI bleeding Attending Physician: Silvia Yoon MD History of Present Illness Nat is a 71 yo female with PMH of A fib on Eliquis, Autoimmune hemolytic anemia, CKD4, DM2, cirrhosis secondary to fatty liver, and KEREN who presented to the ED after she noticed worsening shortness of breath overnight. She notes that the shortness of breath was preventing her from being able to sleep. She presented to the ED. Her O2 sats were noted to be in the 80s. A CXR showed cardiomegaly. BNP 365. Troponin elevated to 116.5 and peaked at 164.6. BUN/Cr 55/2.76. Patient was recently hospitalized with hemolytic anemia and has been on Prednisone since that admission. Her US today shows stability of her liver cirrhosis without acute concerns. She had an EGD for variceal surveillance in March 2021 that did not indicate any acute issues and there was no evidence of varices. A colonoscopy was performed in 2019. She takes Eliquis as an outpatient. Hemoglobin went from 9.9 to 6.9. She reports she had a bowel movement last night and notes bright red blood with it. She denies abdominal pain. She has been on Protonix 40 mg BID as an outpatient for months. She notes she was not experiencing rectal bleeding prior to last night. MELD 20. Of note, patient has a nosebleed at the time of our visit. Allergies Allergy/AdvReac Type Severity Reaction Status Date / Time levofloxacin Allergy Intermediate rash Verified 08/28/21 07:11 enalapril Allergy Unknown DRY COUGH Verified 08/28/21 07:11 insulin detemir Allergy Unknown HIVES Verified 08/28/21 07:11 enalaprilat [From Vasotec] Allergy Unknown Verified 08/28/21 07:11 Home Medications Medication Instructions Recorded Confirmed Type calcium carbonate 600 mg-vitamin 1 tab PO QAM 08/27/18 08/28/21 History D3 20 mcg (800 unit) chewable tablet (Caltrate 600 plus D) fexofenadine 180 mg tablet 180 mg PO DAILY PRN ALLERGIES 08/27/18 08/28/21 History (Chelsie Allergy) ipratropium bromide 21 mcg (0.03 1 spray intranasal UD PRN sinus 08/27/18 08/28/21 History %) nasal spray congestion tramadol 50 mg tablet 50 mg PO Q6H PRN Pain #60 tabs 09/04/18 08/28/21 Rx blood sugar diagnostic (FreeStyle 03/15/19 07/26/21 History Test) cholecalciferol (vitamin D3) 25 25 mcg PO QAM 03/09/21 08/28/21 History mcg (1,000 unit) tablet cyanocobalamin (vitamin B-12) 500 1,000 mcg PO QAM 03/09/21 08/28/21 History mcg tablet rosuvastatin 40 mg tablet 40 mg PO QAM 03/09/21 08/28/21 History sodium bicarbonate 650 mg tablet 650 mg PO QAM stomach upset 03/09/21 08/28/21 History blood-glucose sensor (Dexcom G6 #1 ea 03/21/21 07/26/21 Rx Sensor) apixaban 5 mg tablet 5 mg PO BID #180 tabs 05/30/21 08/28/21 Rx spironolactone 100 mg tablet 100 mg PO QAM #90 tabs 06/06/21 08/28/21 Rx tiotropium bromide 18 mcg capsule 1 cap inhalation QAM 90 days #90 06/06/21 08/28/21 Rx with inhalation device (Spiriva inhalations with HandiHaler) albuterol sulfate 90 mcg/actuation 2 puff inhalation Q4 PRN Shortness 06/07/21 08/28/21 Rx aerosol inhaler (Ventolin HFA) Of Breath Or Wheezing #54 grams fluticasone furoate 200 1 inh inhalation QAM #180 ea 06/07/21 08/28/21 Rx mcg-vilanterol 25 mcg/dose inhalation powder (Breo Ellipta) furosemide 40 mg tablet (Lasix) 40 mg PO QAM #120 tabs 06/07/21 08/28/21 Rx levalbuterol HCl 1.25 mg/3 mL 1.25 mg (3 mL) inhalation TID PRN 06/07/21 08/28/21 Rx solution for nebulization ASTHMA #810 mL metoprolol succinate 50 mg 75 mg PO BID #270 tabs 06/07/21 08/28/21 Rx tablet,extended release 24 hr olopatadine 0.1 % eye drops 1 drp ophthalmic (eye) BID PRN 06/07/21 08/28/21 Rx AFFECTED EYE with allergies #10 mL Oxygen Home #1 ea 06/18/21 07/26/21 Rx amlodipine 5 mg tablet (Norvasc) 10 mg PO QAM 06/18/21 08/28/21 History aspirin 81 mg capsule 81 mg PO QAM 06/18/21 08/28/21 History famotidine 20 mg tablet 20 mg PO BID 06/18/21 08/28/21 History ferrous sulfate 325 mg (65 mg 325 mg PO QAM 06/18/21 08/28/21 History iron) tablet sertraline 100 mg tablet 100 mg PO QAM 06/18/21 08/28/21 History isosorbide mononitrate 120 mg 120 mg PO QAM 06/19/21 08/28/21 History tablet,extended release 24 hr pantoprazole 40 mg tablet,delayed 40 mg PO BID 06/19/21 08/28/21 History release sucralfate 1 gram tablet 1 g PO QID PRN Acid Reflux 06/19/21 08/28/21 History montelukast 10 mg tablet 10 mg PO HS 06/20/21 08/28/21 History Omnipod Dash Pods (Gen 4) (insulin #90 ea 06/26/21 07/26/21 Rx pump cart,cont inf,BT) trazodone 50 mg tablet 50 mg PO HS #90 tabs 08/10/21 08/28/21 Rx nitroglycerin 0.4 mg sublingual 0.4 mg sublingual Q5M PRN chest 08/22/21 08/28/21 Rx tablet pain #30 tabs insulin aspart U-100 100 unit/mL 230 unit subcut UD 08/28/21 08/28/21 History subcutaneous solution (Novolog U-100 Insulin aspart) levothyroxine 88 mcg tablet 88 mcg PO DAILYBB 08/28/21 08/28/21 History potassium chloride 10 mEq 10 meq PO QAM 08/28/21 08/28/21 History tablet,extended release prednisone 20 mg tablet 20 mg PO UD 08/28/21 08/28/21 History Patient History Medical History Acute kidney injury superimposed on chronic kidney disease Anemia Antiplatelet or antithrombotic long-term use Asymptomatic carotid artery stenosis Bilateral carotid artery disease Bradycardia CAD (coronary artery disease) Carotid stenosis monitors with Dr Bennett Cerebral arterial aneurysm Cerebral arterial aneurysm "small" behind the right ear - monitors only. followed with [facility] neurology Chest pain due to CAD takes Renexa Chronic reflux esophagitis Cirrhosis Congestive heart failure newly dx 01/2021 Controlled type 2 diabetes mellitus with kidney complication, with long-term current use of insulin Diabetic peripheral neuropathy Gastroparesis Hepatic cirrhosis non-alcoholic History of anemia History of anesthesia reaction "my blood pressure bottomed out and they had to use medication and the pads to restart my heart during my ovarian mass surgery at [facility]" ~. History of ASCVD History of asthma History of depression Hypercholesterolemia Hypertension Hypothyroidism Intestinal metaplasia of gastric mucosa Irritable bowel syndrome hx Mitral regurgitation Nausea and vomiting after administration of anesthetic agent KEREN (obstructive sleep apnea) cpap at night Osteoarthritis Osteopenia Paroxysmal atrial fibrillation newly dx 01/2021. 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 ~[id number]. H/O: hysterectomy ISABEL with unilateral oopherectomy History of breast biopsy right (benign) History of cardiac catheterization 12+ years ago, x1 stent prior to CABG August 2019 [facility]-> transferred to [facility] or [facility] x1 stent placed. History of cataract surgery bilateral History of knee replacement left knee Hx of CABG x4 vessels. 12+ years ago. done at [facility]. follows with Dr Bennett Hx of cataract surgery Hx of colonoscopy (~2013) S/P nasal surgery Status post breast reduction bilateral Family History Mother Carotid artery stenosis Breast cancer Heart failure Myocardial infarction Brother Carotid artery stenosis Peripheral vascular disease Stroke syndrome Hx of CABG Sinusitis Asthma Myocardial infarction Environmental allergies Sister Brain cancer Grandmother Myocardial infarction Denies family history of Ovarian cancer Prostate cancer Crohn's disease Bleeding disorder Colorectal cancer Ulcerative colitis Social History Smoking Status: Never smoker Second Hand Exposure: No; Hx Alcohol Use: Yes Alcohol type: wine Hx Substance Use: No Preferred Language: Maltese Communication Ability: Effective Visual Impairment: No Limitations Hearing Ability: Normal Rn Cardiac Required: No Beliefs That Will Affect Care: None marital status: Current Living Situation: Spouse 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 How many Children do You have: 1 Feels Safe at Home: Yes Childhood Exposure to Second-Hand Smoke: Yes Dental Care, Regularly: Yes Physical Activity Frequency: Does not Exercise Seatbelt Use: always Sunscreen Use: Yes Assistive Devices: Lift Chair and Walker Review of Systems Constitutional: + fatigue Respiratory: no cough and no dyspnea Cardiovascular: no chest pain Gastrointestinal: + blood in stools (one episode); no abdominal pain Physical Exam Constitutional: well developed Respiratory: normal respiratory effort Auscultation: + crackles Cardiovascular: Rate/Rhythm: regular rate Gastrointestinal (Abdomen): Inspection/Auscultation: abdomen normal to inspection Musculoskeletal: Head/Neck/Chest: normocephalic Psychiatric: Orientation: alert and oriented x 3 Results & Data ([facility]) Vital Signs (Past 12 Hours) Vital Signs Temp Pulse Pulse Resp BP Pulse Ox O2 Del Method 08/29/21 10:01 Nasal Cannula 08/29/21 09:56 65 08/29/21 05:13 112/66 08/29/21 03:32 36.5 C 85 16 92/56 L 97 CPAP 08/29/21 02:31 77 18 94 08/28/21 23:06 37.0 C 86 20 97/63 L 96 CPAP 08/28/21 23:05 88 O2 Flow Rate 08/29/21 10:01 2 08/29/21 09:56 08/29/21 05:13 08/29/21 03:32 08/29/21 02:31 2 08/28/21 23:06 08/28/21 23:05 PG Care Time/CCT Total # of Minutes Spent Total Time Spent with Patient: Total time spent is greater than 50% in coordination of care (as documented) at patient's floor/unit and/or counseling patient: Coding Level of Care Code 44822 Initial Inpt Care Lvl 3 Diagnoses Anemia D64.9 Cirrhosis K74.60
[2021-08-29] MEDS ORDERED: LANTUS PER UNIT CHARGE SQ ONE (12:00)
[2021-08-29] MEDS ORDERED: INSULIN HUMAN REGULAR PER UNIT 9 UNITS in SYRINGE 8.91 ML IV ONE (12:00)
[2021-08-29] MEDS ORDERED: INSULIN ASPART 100 UNITS/ML VIAL SC PRN (13:15)
[2021-08-29 13:23] LABS: Hematocrit (blood only) 21.5 % (34.1-44.9); Hemoglobin 6.7 g/dl (12.0-16.0); Mean Corpuscular Hemoglobin 28.8 pg (25.0-34.0); Mean Corpuscular Hgb Conc 31.2 g/dL (32.0-36.0); Mean Corpuscular Volume 92.3 fL (80.0-100.0); Mean Platelet Volume 12.3 fL (9.4-12.3); Platelet Count 51 K/uL (130-400); RDW Coefficient of Variation 21.5 % (11.5-14.5); RDW Standard Deviation 71.4 fL (36.4-46.3); Red Blood Count 2.33 M/uL (3.93-5.22); White Blood Count 2.22 K/ul (4.8-10.8)
[2021-08-29 13:43] LABS: Anisocytosis Present; Echinocytes 1+; Eosinophils # (auto) 0.01 K/uL (0-0.50); Eosinophils % (auto) 0.5 %; Immature Granulocytes # (auto) 0.02 K/uL (0.00-0.02); Immature Granulocytes % (auto) 0.9 %; Lymphocytes # (auto) 0.27 K/uL (1.2-3.4); Lymphocytes % (auto) 12.2 %; Monocytes # (auto) 0.05 K/uL (0.24-0.82); Monocytes % (auto) 2.3 %; Neutrophils # (auto) 1.87 K/uL (1.4-6.5); Neutrophils % (auto) 84.1 %; Tear Drop Cells 1+
--- NOTE | 2021-08-29 14:02 | Pharmacy Report ---
Pharmacy Glycemic Short Note 2 - Date of Service August 29, 2021 - Glycemic Short BSG Results (Last 24 hours): 08/28/21 08/28/21 08/28/21 14:04 15:01 15:28 Glucose POC Glucose 87 81 107 H 08/28/21 08/28/21 08/29/21 16:47 20:22 07:31 Glucose POC Glucose 109 H 169 H 171 H 08/29/21 08/29/21 08/29/21 07:38 11:40 11:41 Glucose 184 H POC Glucose 359 H* 362 H* OUTPATIENT ANTIDIABETIC REGIMEN: * Novolog insulin pump (omnipod) -- up to 230 units per day * HbA1c: unreliable in the setting of anemia with regular iron infusions ASSESSMENT: 08/29/21 * Patient received 19 units of insulin yesterday once insulin pump removed * IV hydrocortisone changed to prednisone 20 mg PO daily only * Originally planned on continuing with SC basal/bolus insulin, but patient's brought insulin pump in from home and it was connected without informing staff. RN discovered insulin pump was connected as he was going to give lunchtime SC insulin doses. Discussed with hospitalist and will continue insulin pump for now. * In the past, patient has used temporary basal rates when needed - will continue to assess appropriateness of pump while inpatient 08/28/21 * Ms Kaur is a Type 2 diabetic female admitted with respiratory failure/pna. * She is normally managed on a Novolog pump. Pt was significantly hypoglycemic in the ED, so insulin pump was removed. Pt will be managed with SQ basal/bolus insulin during admission until it is appropriate to resume her pump. * Ms Kaur is ordered IV hydrocortisone and PO prednisone, which are likely to contribute to steroid-induced hyperglycemia. * Given patient's persistent hypoglycemia today, will initiate Novolog with conservative parameters and dose basal insulin this evening based on her BSG. * Will continue to follow and adjust as needed. PLAN FOR INPATIENT GLYCEMIC CONTROL: * Basal insulin * Lantus 15 units SC x 1 given this morning prior to insulin pump placement Pt is to manage BSGs with insulin pump per outpatient settings. * RN will have patient read and sign agreement [id number] Insulin Pump Therapy Patient Agreement. * RN will provide and explain form [id number] Flowsheet for Patient * Patient will document their insulin dose given on [id number] which is kept at the bedside, available to caregivers upon request, and which becomes part of the permanent medical record. If at any time the patients condition evidences that he/she is not able to manage the insulin pump (i.e. frequent hypo/hyperglycemia) Pharmacy will assume glycemic control by discontinuing the pump & managing with SQ basal bolus insulin regimen for the interim.
--- NOTE | 2021-08-29 14:32 | XCELERA ---
[id number] \\[id number]
--- NOTE | 2021-08-29 16:06 | Hospitalist Progress Note ---
Date of Service August 29, 2021 Assessment & Plan (1) Hypoxia: Plan: Quite hypervolemic during my assessment, suspect acute on chronic diastolic heart failureswitch to IV Lasix; as yet no definite pneumonia, continue antibiotics for now, cultures including sputum; urine Legionella antigen, repeat procalcitonin in a.m. (2) Elevated troponin: Plan: Likely type II event, demand ischemia; continue aspirin, continue metoprolol, given soft blood pressure I stopped isosorbide for nowlatter not associated with any mortality benefit and no angina (3) Controlled type 2 diabetes mellitus with neurologic complication, with long- term current use of insulin: Plan: endorgan damage including chronic kidney disease stage IV Reportedly family insistent on pump; later blood sugars drifting up; pump has been resumedcan work. (4) Pancytopenia: Plan: Impressively lower WBC count platelets, and hemoglobin; as noted history of hemolytic anemiahematology consult (5) GI bleed: Plan: Nursing reported dark stool with surrounding cameron blood; IV PPI, GI consulted Noted some question of hematuria but UA does not show impressive number of red cells per high-power field (6) Anemia: Plan: Acute decline of uncertain etiology, possible acute blood loss anemia, history of hemolytic anemia (finish 4 doses of Rituxan, currently on steroid taper) but current LDH not impressive; at present supportive transfusion, given impressive pancytopenia that is worse hematology consulted: Formal consult pending but for now they recommended continue 20 mg prednisone with ongoing GI (7) Paroxysmal atrial fibrillation: Plan: Eliquis on hold given GI bleed (8) Hepatic cirrhosis: Plan: Outpatient follow-up in this regard; not encephalopathic (9) 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: Plan: Creatinine 2.75 is near her baseline, if needed sees Dr Calixto (10) Hypothyroidism: Plan: Last TSH check was in April 2021 and was normally replete we will continue her Synthroid supplementation (11) Obstructive sleep apnea: Plan: Patient is on home sleep apnea with CPAP at 9 (12) Obesity, Class II, BMI 35-39.9: Plan: Lifestyle modification Plan Patient is a full code DVT preventions Eliquis Admission and Anticipated Discharge Date Admission Date: August 28, 2021 Physical Exam Physical Exam: Constitutional and general: No acute distress, looks biologic age Head and face: No puffiness, atraumatic Eyes: No scleral icterus, extraocular movements normal Neck: Supple, no JVD Musculoskeletal: No acute joint swelling, no bony abnormalities Skin/dermatologic/integument: No rash, no purpura Hematologic and lymphatic: pallor ++, no petechia Gastrointestinal/abdomen: distended, soft, nonacute Neurologic: Cranial nerves intact, nonfocal Psychiatry: Awake, alert, pleasant, communicative Cardiovascular: Heart rhythm regular, no rub, no murmur, no gallop Respiratory: Chest movements equal, no use of accessory muscles, no adventitious sounds Extremities: edema ++, no cyanosis Results & Data Results & Data ([facility]) Vital Signs (Past 12 Hours) Vital Signs Temp Pulse Pulse Resp BP BP Pulse Ox 08/29/21 15:35 73 08/29/21 15:10 36.6 C 84 22 100/64 97 08/29/21 14:55 36.7 C 89 22 97/59 L 93 08/29/21 14:54 36.7 C 75 20 94/58 L 96 08/29/21 14:33 36.6 C 92 H 18 82/45 L 94 08/29/21 12:00 36.5 C 82 22 104/63 94 08/29/21 10:01 08/29/21 09:56 65 08/29/21 05:13 112/66 O2 Del Method O2 Flow Rate 08/29/21 15:35 08/29/21 15:10 2 08/29/21 14:55 08/29/21 14:54 2 08/29/21 14:33 2 08/29/21 12:00 Nasal Cannula 3 08/29/21 10:01 Nasal Cannula 2 08/29/21 09:56 08/29/21 05:13 Laboratory Results Laboratory Results - last 24 hr 08/28/21 08/28/21 08/29/21 16:47 20:22 07:31 WBC RBC Hgb Hct MCV MCH MCHC RDW Std Deviation RDW Coeff of Gomez Plt Count MPV Immature Gran % (Auto) Neut % (Auto) Lymph % (Auto) Ballard % (Auto) Eos % (Auto) Baso % (Auto) Neut # (Auto) Lymph # (Auto) Ballard # (Auto) Eos # (Auto) Baso # (Auto) Immature Gran # (Auto) Anisocytosis Tear Drop Cells Echinocytes Haptoglobin Sodium Potassium Chloride Carbon Dioxide Anion Gap BUN Creatinine Est Cr Clr Drug Dosing Est GFR ( Amer) Est GFR (Non-Af Amer) BUN/Creatinine Ratio Glucose POC Glucose 109 H 169 H 171 H Estimat Average Glucose Hemoglobin A1c Calcium Magnesium Iron Unsaturated IBC Transferrin Erythropoietin Ferritin Total Bilirubin Direct Bilirubin AST ALT Alkaline Phosphatase Lactate Dehydrogenase Troponin I High Sens Total Protein Albumin Vitamin B12 Folate Blood Type Antibody Screen Crossmatch 08/29/21 08/29/21 08/29/21 07:38 07:38 07:38 WBC 1.74 L RBC 2.38 L Hgb 6.9 L* D Hct 22.6 L MCV 95.0 MCH 29.0 MCHC 30.5 L RDW Std Deviation 76.0 H RDW Coeff of Gomez 22.0 H Plt Count 43 L MPV 12.5 H Immature Gran % (Auto) Neut % (Auto) Lymph % (Auto) Ballard % (Auto) Eos % (Auto) Baso % (Auto) Neut # (Auto) Lymph # (Auto) Ballard # (Auto) Eos # (Auto) Baso # (Auto) Immature Gran # (Auto) Anisocytosis Tear Drop Cells Echinocytes Haptoglobin Sodium 135 L Potassium 4.4 Chloride 103 Carbon Dioxide 23 Anion Gap 9 BUN 55 H Creatinine 2.76 H Est Cr Clr Drug Dosing 20.4 Est GFR ( Amer) 19.4 Est GFR (Non-Af Amer) 16.7 BUN/Creatinine Ratio 19.9 Glucose 184 H POC Glucose Estimat Average Glucose Hemoglobin A1c Calcium 7.3 L Magnesium 2.2 Iron 30 L Unsaturated IBC 124 L Transferrin 114 L Erythropoietin Ferritin 171.0 Total Bilirubin 1.8 H Direct Bilirubin 0.8 H AST 57 H ALT 102 H Alkaline Phosphatase 90 Lactate Dehydrogenase Troponin I High Sens 98.7 H* D Total Protein 4.4 L D Albumin 2.3 L Vitamin B12 Folate Blood Type Antibody Screen Crossmatch 08/29/21 08/29/21 08/29/21 07:38 07:38 07:38 WBC RBC Hgb Hct MCV MCH MCHC RDW Std Deviation RDW Coeff of Gomez Plt Count MPV Immature Gran % (Auto) Neut % (Auto) Lymph % (Auto) Ballard % (Auto) Eos % (Auto) Baso % (Auto) Neut # (Auto) Lymph # (Auto) Ballard # (Auto) Eos # (Auto) Baso # (Auto) Immature Gran # (Auto) Anisocytosis Tear Drop Cells Echinocytes Haptoglobin Pending Sodium Potassium Chloride Carbon Dioxide Anion Gap BUN Creatinine Est Cr Clr Drug Dosing Est GFR ( Amer) Est GFR (Non-Af Amer) BUN/Creatinine Ratio Glucose POC Glucose Estimat Average Glucose Hemoglobin A1c Calcium Magnesium Iron Unsaturated IBC Transferrin Erythropoietin Pending Ferritin Total Bilirubin Direct Bilirubin AST ALT Alkaline Phosphatase Lactate Dehydrogenase 219 Troponin I High Sens Total Protein Albumin Vitamin B12 724 Folate 21.77 Blood Type Antibody Screen Crossmatch 08/29/21 08/29/21 08/29/21 08:29 08:29 11:40 WBC RBC Hgb Hct MCV MCH MCHC RDW Std Deviation RDW Coeff of Gomez Plt Count MPV Immature Gran % (Auto) Neut % (Auto) Lymph % (Auto) Ballard % (Auto) Eos % (Auto) Baso % (Auto) Neut # (Auto) Lymph # (Auto) Ballard # (Auto) Eos # (Auto) Baso # (Auto) Immature Gran # (Auto) Anisocytosis Tear Drop Cells Echinocytes Haptoglobin Sodium Potassium Chloride Carbon Dioxide Anion Gap BUN Creatinine Est Cr Clr Drug Dosing Est GFR ( Amer) Est GFR (Non-Af Amer) BUN/Creatinine Ratio Glucose POC Glucose 359 H* Estimat Average Glucose 97 Hemoglobin A1c 5.0 Calcium Magnesium Iron Unsaturated IBC Transferrin Erythropoietin Ferritin Total Bilirubin Direct Bilirubin AST ALT Alkaline Phosphatase Lactate Dehydrogenase Troponin I High Sens Total Protein Albumin Vitamin B12 Folate Blood Type A Positive Antibody Screen NEGATIVE Crossmatch See Detail 08/29/21 08/29/21 08/29/21 11:41 12:57 14:14 WBC 2.22 L RBC 2.33 L Hgb 6.7 L* Hct 21.5 L MCV 92.3 MCH 28.8 MCHC 31.2 L RDW Std Deviation 71.4 H RDW Coeff of Gomez 21.5 H Plt Count 51 L MPV 12.3 Immature Gran % (Auto) 0.9 Neut % (Auto) 84.1 Lymph % (Auto) 12.2 Ballard % (Auto) 2.3 Eos % (Auto) 0.5 Baso % (Auto) 0.0 Neut # (Auto) 1.87 Lymph # (Auto) 0.27 L Ballard # (Auto) 0.05 L Eos # (Auto) 0.01 Baso # (Auto) 0.00 Immature Gran # (Auto) 0.02 Anisocytosis Present Tear Drop Cells 1+ Echinocytes 1+ Haptoglobin Sodium Potassium Chloride Carbon Dioxide Anion Gap BUN Creatinine Est Cr Clr Drug Dosing Est GFR ( Amer) Est GFR (Non-Af Amer) BUN/Creatinine Ratio Glucose POC Glucose 362 H* 355 H* Estimat Average Glucose Hemoglobin A1c Calcium Magnesium Iron Unsaturated IBC Transferrin Erythropoietin Ferritin Total Bilirubin Direct Bilirubin AST ALT Alkaline Phosphatase Lactate Dehydrogenase Troponin I High Sens Total Protein Albumin Vitamin B12 Folate Blood Type Antibody Screen Crossmatch 08/29/21 08/29/21 14:15 14:15 WBC RBC Hgb Hct MCV MCH MCHC RDW Std Deviation RDW Coeff of Gomez Plt Count MPV Immature Gran % (Auto) Neut % (Auto) Lymph % (Auto) Ballard % (Auto) Eos % (Auto) Baso % (Auto) Neut # (Auto) Lymph # (Auto) Ballard # (Auto) Eos # (Auto) Baso # (Auto) Immature Gran # (Auto) Anisocytosis Tear Drop Cells Echinocytes Haptoglobin Sodium Potassium Chloride Carbon Dioxide Anion Gap BUN Creatinine Est Cr Clr Drug Dosing Est GFR ( Amer) Est GFR (Non-Af Amer) BUN/Creatinine Ratio Glucose POC Glucose 263 H 262 H Estimat Average Glucose Hemoglobin A1c Calcium Magnesium Iron Unsaturated IBC Transferrin Erythropoietin Ferritin Total Bilirubin Direct Bilirubin AST ALT Alkaline Phosphatase Lactate Dehydrogenase Troponin I High Sens Total Protein Albumin Vitamin B12 Folate Blood Type Antibody Screen Crossmatch PG Care Time/CCT Total # of Minutes Spent Total Time Spent with Patient: Total time spent is greater than 50% in coordination of care (as documented) at patient's floor/unit and/or counseling patient: Coding Level of Care Code 48190 Subseq Hosp Care Lvl 2 Diagnoses Hypoxia R09.02 Elevated troponin R77.8 Controlled type 2 diabetes mellitus with neurologic complication, with long-term current use of insulin E11.49; Z79.4 Pancytopenia D61.818 GI bleed K92.2 Anemia D64.9 Paroxysmal atrial fibrillation I48.0 Hepatic cirrhosis K74.69 Hepatic cirrhosis type: other cirrhosis 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
--- NOTE | 2021-08-29 16:46 | Electrocardiogram Report ---
Test Reason : Blood Pressure : / mmHG Vent. Rate : 080 BPM Atrial Rate : 080 BPM P-R Int : 120 ms QRS Dur : 068 ms QT Int : 410 ms P-R-T Axes : 071 047 163 degrees QTc Int : 472 ms Sinus rhythm with frequent Premature atrial complexes Prolonged QT Abnormal ECG When compared with ECG of 28-AUG-2021 05:21, T wave inversion no longer evident in Anterior leads QT has lengthened Confirmed by Michael Thomas ([id number] on 08/29/2021 4:45:45 PM Referred By: REFERRED SELF Confirmed By:Michael Thomas
[2021-08-29] MEDS: NovoLOG INSULIN PUMP SCH ×2 (17:12→21:15)
[2021-08-29 19:47] LABS: Hematocrit (blood only) 26.6 % (34.1-44.9); Hemoglobin 8.7 g/dl (12.0-16.0); Mean Corpuscular Hemoglobin 29.5 pg (25.0-34.0); Mean Corpuscular Hgb Conc 32.7 g/dL (32.0-36.0); Mean Corpuscular Volume 90.2 fL (80.0-100.0); Mean Platelet Volume 11.6 fL (9.4-12.3); Nucleated RBC # (auto) 0.02 K/uL (0-0); Nucleated RBC % (auto) 0.7 %; Platelet Count 59 K/uL (130-400); RDW Coefficient of Variation 19.3 % (11.5-14.5); RDW Standard Deviation 63.2 fL (36.4-46.3); Red Blood Count 2.95 M/uL (3.93-5.22); White Blood Count 2.72 K/ul (4.8-10.8)
[2021-08-29] MEDS: MONTELUKAST SODIUM 10 MG TABLET PO SCH (20:35)
[2021-08-29 20:47] LABS: ALC (manual) 0.41 K/uL (1.2-3.4); ANC (manual) 2.31 K/uL (1.4-6.5); Lymphocytes # (manual) 0.41 K/uL (1.2-3.4); Lymphocytes % (manual) 15 %; Neutrophils # (manual) 2.31 K/uL (1.4-6.5); Neutrophils % (manual) 85 %; Polychromasia 1+
[2021-08-29] MEDS: traZODone HCL 50 MG TAB PO SCH (21:27)
[2021-08-30] MEDS ORDERED: ACETAMINOPHEN 1,000 MG/100 ML VIAL IV STA (00:23)
[2021-08-30] MEDS ORDERED: diphenhydrAMINE 50 MG/ML VIAL IV STA (00:24)
[2021-08-30] MEDS: DEXTROSE 50% 50 ML SYRINGE IV PRN ×3 (02:35→05:09)
[2021-08-30] MEDS: LEVOTHYROXINE SODIUM 88 MCG TABLET PO SCH (06:10)
[2021-08-30 06:59] LABS: Hematocrit (blood only) 28.1 % (34.1-44.9); Hemoglobin 9.1 g/dl (12.0-16.0); Mean Corpuscular Hemoglobin 29.4 pg (25.0-34.0); Mean Corpuscular Hgb Conc 32.4 g/dL (32.0-36.0); Mean Corpuscular Volume 90.6 fL (80.0-100.0); Mean Platelet Volume 11.6 fL (9.4-12.3); Nucleated RBC # (auto) 0.02 K/uL (0-0); Nucleated RBC % (auto) 1.1 %; Platelet Count 48 K/uL (130-400); RDW Coefficient of Variation 18.8 % (11.5-14.5); RDW Standard Deviation 61.9 fL (36.4-46.3); White Blood Count 1.84 K/ul (4.8-10.8)
[2021-08-30 07:19] LABS: BUN Creatinine Ratio 20.2 (10-20); Calcium 7.5 mg/dl (8.5-10.1); Creatinine Clr Calc Pharmacy 20.5 ml/min; Est GFR (African American) 18.9 ml/min; Est GFR (Non-African American) 16.3 ml/min; Magnesium 2.3 mg/dl (1.7-2.4); Potassium 3.6 mmol/L (3.5-5.1)
[2021-08-30 07:32] LABS: Basophils # (auto) 0.01 K/uL (0-0.2); Basophils % (auto) 0.5 %; Echinocytes 1+; Immature Granulocytes # (auto) 0.02 K/uL (0.00-0.02); Immature Granulocytes % (auto) 1.1 %; Lymphocytes # (auto) 0.21 K/uL (1.2-3.4); Lymphocytes % (auto) 11.4 %; Monocytes # (auto) 0.12 K/uL (0.24-0.82); Monocytes % (auto) 6.5 %; Neutrophils # (auto) 1.48 K/uL (1.4-6.5); Neutrophils % (auto) 80.5 %; Polychromasia 1+; Tear Drop Cells 1+
[2021-08-30] MEDS: PANTOprazole 40 MG in SYRINGE 0 ML IV SCH ×2 (08:03→21:39)
[2021-08-30] MEDS: UMECLIDINIUM BROMIDE 62.5MCG/BLISTER 7 PUFFS/INHALER INH SCH (08:03)
[2021-08-30] MEDS: FLUTICASONE/VILANTEROL 200/25MCG 14 PUFFS/INHALER INH SCH (08:03)
[2021-08-30] MEDS: SPIRONOLACTONE 100 MG TAB PO SCH (08:04)
[2021-08-30] MEDS: METOPROLOL SUCC 25MG EXT REL TAB PO SCH ×2 (08:04→20:27)
[2021-08-30] MEDS: CYANOCOBALAMIN (B-12) 500 MCG TABLET PO SCH (08:05)
[2021-08-30] MEDS: predniSONE 20 MG TAB PO SCH (08:05)
[2021-08-30] MEDS: ROSUVASTATIN CALCIUM 20 MG TAB PO SCH (08:05)
[2021-08-30] MEDS: CALCIUM 600MG + VIT D 400 IU TAB PO SCH (08:05)
[2021-08-30] MEDS: FERROUS SULFATE 325 MG TAB PO SCH (08:05)
[2021-08-30] MEDS: SERTRALINE HCL 100 MG TABLET PO SCH (08:05)
[2021-08-30] MEDS: FUROSEMIDE 40 MG/4 ML VIAL IV SCH (08:06)
[2021-08-30] MEDS ORDERED: predniSONE 20 MG TAB PO SCH (09:00)
[2021-08-30] MEDS: POTASSIUM CHLORIDE 10 MEQ TABCR PO SCH (09:38)
[2021-08-30] MEDS: INSULIN ASPART PER UNIT SC SCH ×4 (09:38→20:22)
[2021-08-30] MEDS: AZITHROMYCIN 500 MG in DEXTROSE 5% 250 ML IV SCH (09:42)
[2021-08-30] MEDS: cefTRIAXone SODIUM 2,000 MG in DEXTROSE 5% 50 ML IV SCH (09:42)
--- NOTE | 2021-08-30 09:50 | Gastroenterology Progress Note ---
Date of Service August 30, 2021 Assessment & Plan (1) Anemia: Plan: -Continue to monitor H/H & monitor for overt GI bleeding -Continue IV Protonix 40 mg BID (2) Cirrhosis: Plan: -Monitor MELD labs -Outpatient follow-up as previously planned; patient is up to date with HCC surveillance along with variceal surveillance Admission and Anticipated Discharge Date Admission Date: August 28, 2021 Supervising Physician Co-Signing Physician Notes Agree with GUILLERMINA Brandt as above Abd: Soft, NT, ND, +BS Continue current therapy and supportive care Subjective Patient is a 71 yo female with anemia. She denies abdominal pain, nausea, vomiting, hematemesis. She notes that she had a dark stool on 08/29/2021 in the AM, but has not had further GI bleeding. Her Eliquis is currently being held. H/H 9.1/28.1. No acute concerns at present. She is on IV Protonix 40 mg BID. Review of Systems Gastrointestinal: no abdominal pain, no change in bowel habits, no diarrhea/loose stools and no blood in stools Physical Exam Constitutional: well developed Gastrointestinal (Abdomen): normal bowel sounds, soft, nontender, no hepatosplenomegaly Psychiatric: Orientation: alert and oriented x 3 Results & Data Results & Data ([facility]) Vital Signs (Past 12 Hours) Vital Signs Temp Pulse Pulse Resp BP BP Pulse Ox 08/30/21 07:45 81 18 92 08/30/21 07:32 36.5 C 66 18 105/60 100 08/30/21 07:19 64 08/30/21 04:44 36.4 C L 65 17 94/57 L 96 08/30/21 03:11 89/53 L 08/30/21 02:56 73 20 97 08/30/21 01:46 36.8 C 08/30/21 01:17 38.2 C H 82 20 111/70 93 08/30/21 00:52 38.2 C H 111/70 08/30/21 00:40 82 08/29/21 23:41 08/30/21 00:12 37.7 C H 108 H 20 119/78 93 08/29/21 23:13 37.0 C 99 H 20 109/68 08/29/21 22:43 37.6 C H 78 20 120/70 99 08/29/21 22:28 37.2 C 90 20 124/70 95 08/29/21 22:24 77 30 H 98 08/29/21 22:01 37.5 C 75 20 128/77 98 O2 Del Method O2 Flow Rate 08/30/21 07:45 2 08/30/21 07:32 BiPAP 08/30/21 07:19 08/30/21 04:44 BiPAP 2 08/30/21 03:11 08/30/21 02:56 2 08/30/21 01:46 08/30/21 01:17 2 08/30/21 00:52 08/30/21 00:40 08/29/21 23:41 CPAP 2 08/30/21 00:12 08/29/21 23:13 08/29/21 22:43 2 08/29/21 22:28 2 08/29/21 22:24 2 08/29/21 22:01 2 PG Care Time/CCT Total # of Minutes Spent Total Time Spent with Patient: Total time spent is greater than 50% in coordination of care (as documented) at patient's floor/unit and/or counseling patient: Coding Level of Care Code 03591 Subseq Hosp Care Lvl 3 Diagnoses Anemia D64.9 Cirrhosis K74.60
[2021-08-30 10:54] LABS: Blood Urine Trace (Negative); RBC Urine Automated 0-4 /hpf (0-4)
[2021-08-30] MEDS ORDERED: LANTUS PER UNIT CHARGE SQ ONE ×2 (11:30→21:00)
--- NOTE | 2021-08-30 12:38 | Pharmacy Report ---
Pharmacy Glycemic Short Note 2 - Date of Service August 30, 2021 - Glycemic Short BSG Results (Last 24 hours): 08/29/21 08/29/21 08/29/21 14:14 14:15 14:15 Glucose POC Glucose 355 H* 263 H 262 H 08/29/21 08/29/21 08/29/21 16:26 20:01 20:03 Glucose POC Glucose 120 H 34 L* 33 L* 08/29/21 08/29/21 08/30/21 20:19 20:38 02:31 Glucose POC Glucose 55 L* 73 22 L* 08/30/21 08/30/21 08/30/21 02:32 02:39 02:40 Glucose POC Glucose 21 L* 249 H 227 H 08/30/21 08/30/21 08/30/21 02:43 03:09 03:29 Glucose POC Glucose 182 H 97 78 08/30/21 08/30/21 08/30/21 03:44 03:59 04:25 Glucose POC Glucose 60 L* 131 H 98 08/30/21 08/30/21 08/30/21 04:44 05:06 05:32 Glucose POC Glucose 82 65 L* 108 H 08/30/21 08/30/21 08/30/21 06:08 06:50 07:14 Glucose 80 POC Glucose 84 74 08/30/21 11:20 Glucose POC Glucose 255 H OUTPATIENT ANTIDIABETIC REGIMEN: * Novolog insulin pump (omnipod) -- up to 230 units per day * HbA1c: unreliable in the setting of anemia with regular iron infusions ASSESSMENT: 08/30/21 * Insulin pump trial did not go well overnight, multiple low BSGs observed ov ernight (34 mg/dL, 22 mg/dL, etc.) despite basal rate reduction * RN removed insulin pump after sustained lows observed * Will manage with SC basal/bolus while inpatient * Patient will likely require basal reduction in insulin pump - CDE consulted * Waited until upward BSG trend noted at lunchtime to give basal * Will leave sign out with second-shift pharmacist for possible tightening of Novolog 08/29/21 * Patient received 19 units of insulin yesterday once insulin pump removed * IV hydrocortisone changed to prednisone 20 mg PO daily only * Originally planned on continuing with SC basal/bolus insulin, but patient's brought insulin pump in from home and it was connected without informing staff. RN discovered insulin pump was connected as he was going to give lunchtime SC insulin doses. Discussed with hospitalist and will continue insulin pump for now. * In the past, patient has used temporary basal rates when needed - will continue to assess appropriateness of pump while inpatient 08/28/21 * Ms Kaur is a Type 2 diabetic female admitted with respiratory failure/pna. * She is normally managed on a Novolog pump. Pt was significantly hypoglycemic in the ED, so insulin pump was removed. Pt will be managed with SQ basal/bolus insulin during admission until it is appropriate to resume her pump. * Ms Kaur is ordered IV hydrocortisone and PO prednisone, which are likely to contribute to steroid-induced hyperglycemia. * Given patient's persistent hypoglycemia today, will initiate Novolog with conservative parameters and dose basal insulin this evening based on her BSG. * Will continue to follow and adjust as needed. PLAN FOR INPATIENT GLYCEMIC CONTROL: * Basal insulin * Lantus 30 units SC x 1 at lunch * Lantus scale HS (0-15 units) - see EHR for details * Bolus insulin * Goal BSG Range: Low 110 mg/dL, High 140 mg/dL * Correction Factor: 20 mg/dL/unit * Carbohydrate ratio = 6 g/unit
[2021-08-30 13:18] LABS: Hematocrit (blood only) 27.9 % (34.1-44.9); Hemoglobin 9.2 g/dl (12.0-16.0); Immature Granulocytes # (auto) 0.03 K/uL (0.00-0.02); Immature Granulocytes % (auto) 1.7 %; Lymphocytes # (auto) 0.32 K/uL (1.2-3.4); Lymphocytes % (auto) 18.1 %; Mean Corpuscular Hemoglobin 29.3 pg (25.0-34.0); Mean Corpuscular Volume 88.9 fL (80.0-100.0); Mean Platelet Volume 11.7 fL (9.4-12.3); Monocytes # (auto) 0.08 K/uL (0.24-0.82); Monocytes % (auto) 4.5 %; Neutrophils # (auto) 1.34 K/uL (1.4-6.5); Neutrophils % (auto) 75.7 %; Nucleated RBC # (auto) 0.03 K/uL (0-0); Nucleated RBC % (auto) 1.7 %; Platelet Count 49 K/uL (130-400); RDW Standard Deviation 61.3 fL (36.4-46.3); Red Blood Count 3.14 M/uL (3.93-5.22); White Blood Count 1.77 K/ul (4.8-10.8)
[2021-08-30 13:45] LABS: Acanthocytes 1+; Echinocytes 2+; Poikilocytosis Present; Polychromasia 1+
--- NOTE | 2021-08-30 17:14 | Consultation Report ---
DATE OF SERVICE: 08/30/2021. REASON FOR CONSULTATION: Hemolytic anemia and worsening pancytopenia. HISTORY OF PRESENT ILLNESS: The patient is a 71-year-old female known to me in H[facility]ology Clinic who had been followed for pancytopenia due to liver cirrhosis with splenomegaly and was recently found to have hemolytic anemia for which she initially received high dose steroid with improvement after which she relapsed requiring rituximab weekly x4 doses completed on 08/22/2021. Patient was admitted to [facility] on 08/28/2021 with lower extremity weakness and fatigue. On admission, she was noted to be hypoxic, thought to be due to possible pneumonia versus right heart failure secondary to obstructive sleep apnea. Labs revealed chronic pancytopenia and acute worsening anemia for which Hematology was consulted. At the time of evaluating the patient, she states that she feels a little bit stronger, but complains of generalized weakness. Denies any other issues. ALLERGIES: 1. LEVOFLOXACIN. 2. ENALAPRIL. 3. INSULIN DETEMIR. HOME MEDICATIONS: 1. Calcium supplementation.. 2. Vitamin D3 supplementation. 3. Vitamin B12 supplementation. 4. Rosuvastatin 40 mg daily. 5. Apixaban 5 mg p.o. b.i.d. 6. Spironolactone 100 mg p.o. q.a.m. 7. Lasix 40 mg daily. 8. Metoprolol 75 mg p.o. b.i.d. 9. Amlodipine 10 mg p.o. every day. 10. Famotidine 20 mg p.o. b.i.d. 11. Ferrous sulfate 325 mg p.o. q.a.m. 12. Pantoprazole 40 mg p.o. b.i.d. 13. Sucralfate 1 gram p.o. q.i.d. 14. Montelukast 10 mg p.o. at bedtime. 15. Levothyroxine 88 mcg p.o. every day. PAST MEDICAL HISTORY: 1. Liver cirrhosis. 2. Pancytopenia. 3. CKD stage IV. 4. Asthma. 5. Hypothyroidism. 6. Osteoarthritis. 7. Emphysema. PAST SURGICAL HISTORY: 1. Hysterectomy. 2. Knee replacement. 3. CABG. 4. Breast reduction. FAMILY HISTORY: Significant for breast cancer in her mother and brain cancer in her sister. SOCIAL HISTORY: Denies smoking, alcohol and illicit drug use. REVIEW OF SYSTEMS: Significant for shortness of breath and generalized weakness, but overall unremarkable. PHYSICAL EXAMINATION: Appear to be in mild respiratory distress, but otherwise unremarkable. LABORATORY DATA: White cell count 1.84, hemoglobin 9.1, hematocrit 28.1, platelet count 48,000. Chemistry: Sodium 135, potassium 3.6, chloride 102, bicarbonate 25, BUN 57, creatinine 2.82. IMAGING STUDIES: Abdominal ultrasound on 08/28/2021. IMPRESSION: 1. Small volume abdominopelvic ascites. 2. Cirrhotic liver and splenomegaly. ASSESSMENT AND PLAN: A 71-year-old female with longstanding pancytopenia due to liver cirrhosis with splenomegaly and resultant sequestration. She was also recently diagnosed with autoimmune hemolytic anemia for which she was initially on high-dose steroids, which are being tapered and is status post 4 doses of weekly rituximab, completed on 08/22/2021. She was admitted with generalized weakness and was found to be hypoxic, thought to be due to pneumonia versus right heart failure. Labs obtained since admission has shown pancytopenia, for which Hematology was consulted. Her pancytopenia is largely multifactorial including liver cirrhosis with splenomegaly. Her LDH is completely normal, indicating improvement in auoimmune hemolysis and less likely the cause of anemia.. I suspect that she actually had an episode of GI bleeding given her complaint of melena, which probably led to worsening in baseline anemia. She also has underlying chronic kidney disease, which also contributed to anemia. Would recommend transfusion for hemoglobin less than 8. She should continue with the steroid taper. No indication at this time for IVIG given normal LDH but ill consider this as an outpatient if she has a flare of autoimmune hemolysis. Would recommend giving her erythropoietin supplementation while in the hospital, which will be continued as an outpatient at [facility]. Thank you for this consult. Hematology will sign off at this time and see her upon discharge. Please feel free to call if you have any further questions. Job ID: [id number] [facility] CENTERRaymundo
--- NOTE | 2021-08-30 18:14 | Hospitalist Progress Note ---
Date of Service August 30, 2021 Assessment & Plan (1) Hypoxia: Plan: Still quite hypervolemic during my assessment, suspect acute on chronic diastolic heart failurect IV Lasix (2) Elevated troponin: Plan: Likely type II NM, demand ischemia; continue metoprolol, given soft blood pressure I stopped isosorbide for nowlatter not associated with any mortality benefit and no angina; given thrombocytopenia and question of GI bleed also held aspirin for now (3) Controlled type 2 diabetes mellitus with neurologic complication, with long- term current use of insulin: Plan: endorgan damage including chronic kidney disease stage IV Again low blood sugar, pump disconnected, pharmacy glycemic consult (4) Pancytopenia: Plan: Hematology consulted; at present supportive care recommended, formal consent pending (5) GI bleed: Plan: Yesterday (08/29) nursing had reported dark stool with surrounding cameron blood; ct IV PPI, GI consult noted and Noted some question of hematuria but UA does not show impressive number of red cells per high-power field (6) Anemia: Plan: Acute decline of uncertain etiology, possible acute blood loss anemia, history of hemolytic anemia (finish 4 doses of Rituxan, currently on steroid taper) but current LDH not impressive; at present supportive transfusion; hematology consulted as above (7) Paroxysmal atrial fibrillation: Plan: Eliquis on hold given GI bleed (8) Hepatic cirrhosis: Plan: Outpatient follow-up in this regard; not encephalopathic (9) 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: Plan: Parameters appear stable, watch for overdiuresis (10) Hypothyroidism: Plan: Last TSH check was in April 2021 and was normally replete we will continue her Synthroid supplementation (11) Obstructive sleep apnea: Plan: Patient is on home sleep apnea with CPAP at 9 (12) Obesity, Class II, BMI 35-39.9: Plan: Lifestyle modification (13) Elevated procalcitonin: Plan: Impressively elevated on second check, no clear localized acute bacterial infection; continue current antibiotics; will consider diagnostic paracentesis Plan Patient is a full code Admission and Anticipated Discharge Date Admission Date: August 28, 2021 Subjective No,Follow-up of presentation with shortness of breath, GI bleedno bleeding, feels well Physical Exam Physical Exam: Constitutional and general: No acute distress, looks biologic age Head and face: No puffiness, atraumatic Eyes: No scleral icterus, extraocular movements normal Neck: Supple, no JVD Musculoskeletal: No acute joint swelling, no bony abnormalities Skin/dermatologic/integument: No rash, no purpura Hematologic and lymphatic: pallor ++, no petechia Gastrointestinal/abdomen: distended, soft, nonacute Neurologic: Cranial nerves intact, nonfocal Psychiatry: Awake, alert, pleasant, communicative Cardiovascular: Heart rhythm regular, no rub, no murmur, no gallop Respiratory: Chest movements equal, no use of accessory muscles, no adventitious sounds Extremities: edema ++, no cyanosis Results & Data Results & Data ([facility]) Vital Signs (Past 12 Hours) Vital Signs Temp Pulse Pulse Resp BP Pulse Ox Pulse Ox 08/30/21 16:20 36.9 C 76 15 104/53 L 92 08/30/21 14:53 82 08/30/21 08:15 08/30/21 11:00 36.4 C L 81 20 139/79 97 08/30/21 11:00 97 08/30/21 07:45 81 18 92 08/30/21 07:32 36.5 C 66 18 105/60 100 08/30/21 07:19 64 O2 Del Method O2 Del Method O2 Flow Rate O2 Flow Rate 08/30/21 16:20 Nasal Cannula 2 08/30/21 14:53 08/30/21 08:15 Nasal Cannula 2 08/30/21 11:00 Nasal Cannula 2 08/30/21 11:00 Nasal Cannula 2 08/30/21 07:45 2 08/30/21 07:32 BiPAP 08/30/21 07:19 PG Care Time/CCT Total # of Minutes Spent Total Time Spent with Patient: Total time spent is greater than 50% in coordination of care (as documented) at patient's floor/unit and/or counseling patient: Coding Level of Care Code 85080 Subseq Hosp Care Lvl 2 Diagnoses Hypoxia R09.02 Elevated troponin R77.8 Controlled type 2 diabetes mellitus with neurologic complication, with long-term current use of insulin E11.49; Z79.4 Pancytopenia D61.818 GI bleed K92.2 Anemia D64.9 Paroxysmal atrial fibrillation I48.0 Hepatic cirrhosis K74.69 Hepatic cirrhosis type: other cirrhosis 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
[2021-08-30] MEDS: MONTELUKAST SODIUM 10 MG TABLET PO SCH (20:28)
[2021-08-30] MEDS: traZODone HCL 50 MG TAB PO SCH (21:39)
[2021-08-31] MEDS ORDERED: INSULIN ASPART PER UNIT SC SCH (02:00)
[2021-08-31] MEDS: LEVOTHYROXINE SODIUM 88 MCG TABLET PO SCH (05:39)
[2021-08-31 06:23] LABS: Hematocrit (blood only) 28.8 % (34.1-44.9); Hemoglobin 9.4 g/dl (12.0-16.0); Mean Corpuscular Hemoglobin 29.7 pg (25.0-34.0); Mean Corpuscular Hgb Conc 32.6 g/dL (32.0-36.0); Mean Corpuscular Volume 90.9 fL (80.0-100.0); Mean Platelet Volume 11.3 fL (9.4-12.3); Nucleated RBC # (auto) 0.06 K/uL (0-0); Nucleated RBC % (auto) 2.9 %; Platelet Count 50 K/uL (130-400); RDW Coefficient of Variation 19.2 % (11.5-14.5); RDW Standard Deviation 63.6 fL (36.4-46.3); Red Blood Count 3.17 M/uL (3.93-5.22); White Blood Count 2.09 K/ul (4.8-10.8)
[2021-08-31 07:03] LABS: Albumin Level 2.5 gm/dl (3.4-5.0); Bilirubin,Total 1.4 mg/dl (0.2-1.0); Calcium 7.6 mg/dl (8.5-10.1); Creatinine Clr Calc Pharmacy 20.6 ml/min; Est GFR (Non-African American) 16.4 ml/min; Globulin 2.6 gm/dl (2.5-4.0); Magnesium 2.2 mg/dl (1.7-2.4); Phosphorus 2.9 mg/dl (2.5-4.9); Potassium 4.1 mmol/L (3.5-5.1); Total Protein 5.1 gm/dl (6.0-8.3)
[2021-08-31 07:31] LABS: Basophils # (auto) 0.01 K/uL (0-0.2); Basophils % (auto) 0.5 %; Immature Granulocytes # (auto) 0.03 K/uL (0.00-0.02); Immature Granulocytes % (auto) 1.4 %; Lymphocytes # (auto) 0.51 K/uL (1.2-3.4); Lymphocytes % (auto) 24.4 %; Monocytes # (auto) 0.11 K/uL (0.24-0.82); Monocytes % (auto) 5.3 %; Neutrophils # (auto) 1.43 K/uL (1.4-6.5); Neutrophils % (auto) 68.4 %; Polychromasia 1+; Spherocytes 1+; Tear Drop Cells 1+
[2021-08-31] MEDS: predniSONE 20 MG TAB PO SCH (07:50)
[2021-08-31] MEDS: METOPROLOL SUCC 25MG EXT REL TAB PO SCH ×2 (07:50→20:18)
[2021-08-31] MEDS: SERTRALINE HCL 100 MG TABLET PO SCH (07:50)
[2021-08-31] MEDS: ACETAMINOPHEN 325 MG TAB PO PRN (07:50)
[2021-08-31] MEDS: SPIRONOLACTONE 100 MG TAB PO SCH (07:50)
[2021-08-31] MEDS: ROSUVASTATIN CALCIUM 20 MG TAB PO SCH (07:51)
[2021-08-31] MEDS: FLUTICASONE/VILANTEROL 200/25MCG 14 PUFFS/INHALER INH SCH (07:51)
[2021-08-31] MEDS: PANTOprazole 40 MG in SYRINGE 0 ML IV SCH ×2 (07:51→20:18)
[2021-08-31] MEDS: FERROUS SULFATE 325 MG TAB PO SCH (07:51)
[2021-08-31] MEDS: UMECLIDINIUM BROMIDE 62.5MCG/BLISTER 7 PUFFS/INHALER INH SCH (07:51)
[2021-08-31] MEDS: CALCIUM 600MG + VIT D 400 IU TAB PO SCH (07:51)
[2021-08-31] MEDS: CYANOCOBALAMIN (B-12) 500 MCG TABLET PO SCH (07:51)
[2021-08-31] MEDS: AZITHROMYCIN 500 MG in DEXTROSE 5% 250 ML IV SCH (07:52)
[2021-08-31] MEDS: cefTRIAXone SODIUM 2,000 MG in DEXTROSE 5% 50 ML IV SCH (07:52)
[2021-08-31] MEDS: FUROSEMIDE 40 MG/4 ML VIAL IV SCH ×2 (07:58→20:19)
[2021-08-31] MEDS: INSULIN ASPART PER UNIT SC SCH ×4 (08:02→20:43)
[2021-08-31] MEDS: POTASSIUM CHLORIDE 10 MEQ TABCR PO SCH (08:02)
[2021-08-31] MEDS ORDERED: EPOETIN ALFA 10,000 UNITS/ML VIAL SQ SCH (09:00)
[2021-08-31] MEDS ORDERED: LANTUS PER UNIT CHARGE SQ SCH (09:00)
--- NOTE | 2021-08-31 09:37 | XRay Report ---
SINGLE VIEW CHEST CLINICAL HISTORY: Pleuritic chest pain. FINDINGS: An AP, portable, upright chest radiograph is compared to study dated 08/28/2021 and correlat ed with chest CT dated 07/24/2021. The patient is status post midline sternotomy. The heart is enlarge d noting atherosclerotic calcification of the thoracic aorta. There is pulmonary vascular congestion. Bilateral airspace opacities are noted. Suspect small pleural effusions. No pneumothorax is seen. Th e skeletal structures are osteopenic. The bony thorax is grossly intact. Degenerative change is noted in the shoulders. IMPRESSION: 1. Cardiomegaly with evidence of congestive failure. 2. Bilateral airspace opacities likely represent pulmonary edema. Correlate clinically for evidence o f a superimposed infectious/inflammatory pneumonitis. 3. Suspect pleural effusions.. ACT 112: Negative or not required by law. Electronically signed by: Arcadio Sutton M.D. 08/31/2021 9:36 AM
[2021-08-31] MEDS: ASPIRIN 81 MG ECTAB PO SCH (10:50)
[2021-08-31] MEDS ORDERED: FUROSEMIDE 40 MG/4 ML VIAL IV ONE (11:00)
--- NOTE | 2021-08-31 13:27 | Cardiology Consultation ---
Date of Consultation August 31, 2021 Assessment & Plan (1) Congestive heart failure: -acute on chronic diastolic CHF. -agree with intravenous diuretics. -continue metoprolol succinate. -continue spironolactone. (2) Elevated troponin: -likely a supply demand mismatch. -coronary ischemia seems unlikely as she has had no angina pectoris. (3) CAD (coronary artery disease): -CABG x3 November 1999. -RCA SAM August 2018 -continue medical management. (4) Paroxysmal atrial fibrillation: -Eliquis currently on hold due to her significant anemia and possible GI bleed. -continue metoprolol succinate for rate control. History of Present Illness Attending Physician: Silvia Yoon MD History of Present Illness Mrs. Kaur is a 71-year-old white female admitted on August 28 with acute respiratory failure felt secondary to a community-acquired pneumonia. This consultation was ordered to assist in her cardiac management. Of note, patient typically follows with Dr. Bennett in the outpatient setting. The patient was in her usual state of health until several days prior to presentation. She began to note progressive shortness of breath, fevers, and orthopnea. She presented to the emergency room were she was noted to be tachycardic and hypoxic. Her high sensitivity troponin was mildly elevated 116.5 and a chest x-ray is interpreted as noting changes in the base of the left lung consistent with a pneumonia. The patient has noted progressive edema while hospitalized and her chest x-ray now suggests pulmonary edema. The patient has a history of chronic diastolic CHF. There has been no recent decompensation. She also carries a history of coronary artery disease having undergone a 3 vessel bypass in November 1999 (MAHONEY to the LAD, are JONO to the PDA, SVG to an OM). A cardiac catheterization performed in July 2018 noted a 30% mid LAD, 70% distal LAD, 100% ostial LCx, 80-90% ostial RCA, patent MAHONEY, 30% ostial SVG to the OM, an 80-90% distal LUIS ALBERTO. An attempt was made at intervening on the ostial RCA stenosis, however, that was unsuccessful. She then underwent a SAM of the RCA at [facility] in August 2018. She has done well from a cardiac perspective since that time. Currently, patient is resting comfortably in bed noticing some mild dyspnea. Past medical and surgical history 1. Coronary artery disease-see above 2. CABG x3-November 1999 3. RCA SAM-August 2018 4. Hypertension 5. Mild LVH 6. Chronic diastolic CHF 7. Paroxysmal atrial fibrillation-January 2021 8. Hypercholesterolemia 9. Cerebrovascular disease-70% right, 50-69% left internal carotid stenosis, December 2020 10. Asthma/emphysema 11. Diabetes mellitus 12. Chronic renal failure, stage IV 13. Cirrhosis 14. Pancytopenia-secondary to #13 15. GERD 16. Hypothyroidism 17. Obesity 18. Obstructive sleep apnea 19. Cor pulmonale 20. Irritable bowel syndrome 21. Hysterectomy 22. Bilateral intra-ocular lens implants 23. Total knee replacement 24. Breast reduction surgery Social history and lives with her No tobacco Occasional alcohol Family history No early coronary artery disease Review of systems A 10 point review systems was undertaken and negative except that described above. Allergies Allergy/AdvReac Type Severity Reaction Status Date / Time levofloxacin Allergy Intermediate rash Verified 08/28/21 07:11 enalapril Allergy Unknown DRY COUGH Verified 08/28/21 07:11 insulin detemir Allergy Unknown HIVES Verified 08/28/21 07:11 enalaprilat [From Vasotec] Allergy Unknown Verified 08/28/21 07:11 Home Medications Medication Instructions Recorded Confirmed Type calcium carbonate 600 mg-vitamin 1 tab PO QAM 08/27/18 08/28/21 History D3 20 mcg (800 unit) chewable tablet (Caltrate 600 plus D) fexofenadine 180 mg tablet 180 mg PO DAILY PRN ALLERGIES 08/27/18 08/28/21 History (Chelsie Allergy) ipratropium bromide 21 mcg (0.03 1 spray intranasal UD PRN sinus 08/27/18 08/28/21 History %) nasal spray congestion tramadol 50 mg tablet 50 mg PO Q6H PRN Pain #60 tabs 09/04/18 08/28/21 Rx blood sugar diagnostic (FreeStyle 03/15/19 07/26/21 History Test) cholecalciferol (vitamin D3) 25 25 mcg PO QAM 03/09/21 08/28/21 History mcg (1,000 unit) tablet cyanocobalamin (vitamin B-12) 500 1,000 mcg PO QAM 03/09/21 08/28/21 History mcg tablet rosuvastatin 40 mg tablet 40 mg PO QAM 03/09/21 08/28/21 History sodium bicarbonate 650 mg tablet 650 mg PO QAM stomach upset 03/09/21 08/28/21 History blood-glucose sensor (Dexcom G6 #1 ea 03/21/21 07/26/21 Rx Sensor) apixaban 5 mg tablet 5 mg PO BID #180 tabs 05/30/21 08/28/21 Rx spironolactone 100 mg tablet 100 mg PO QAM #90 tabs 06/06/21 08/28/21 Rx tiotropium bromide 18 mcg capsule 1 cap inhalation QAM 90 days #90 06/06/21 08/28/21 Rx with inhalation device (Spiriva inhalations with HandiHaler) albuterol sulfate 90 mcg/actuation 2 puff inhalation Q4 PRN Shortness 06/07/21 08/28/21 Rx aerosol inhaler (Ventolin HFA) Of Breath Or Wheezing #54 grams fluticasone furoate 200 1 inh inhalation QAM #180 ea 06/07/21 08/28/21 Rx mcg-vilanterol 25 mcg/dose inhalation powder (Breo Ellipta) furosemide 40 mg tablet (Lasix) 40 mg PO QAM #120 tabs 06/07/21 08/28/21 Rx levalbuterol HCl 1.25 mg/3 mL 1.25 mg (3 mL) inhalation TID PRN 06/07/21 08/28/21 Rx solution for nebulization ASTHMA #810 mL metoprolol succinate 50 mg 75 mg PO BID #270 tabs 06/07/21 08/28/21 Rx tablet,extended release 24 hr olopatadine 0.1 % eye drops 1 drp ophthalmic (eye) BID PRN 06/07/21 08/28/21 Rx AFFECTED EYE with allergies #10 mL Oxygen Home #1 ea 06/18/21 07/26/21 Rx amlodipine 5 mg tablet (Norvasc) 10 mg PO QAM 06/18/21 08/28/21 History aspirin 81 mg capsule 81 mg PO QAM 06/18/21 08/28/21 History famotidine 20 mg tablet 20 mg PO BID 06/18/21 08/28/21 History ferrous sulfate 325 mg (65 mg 325 mg PO QAM 06/18/21 08/28/21 History iron) tablet sertraline 100 mg tablet 100 mg PO QAM 06/18/21 08/28/21 History isosorbide mononitrate 120 mg 120 mg PO QAM 06/19/21 08/28/21 History tablet,extended release 24 hr pantoprazole 40 mg tablet,delayed 40 mg PO BID 06/19/21 08/28/21 History release sucralfate 1 gram tablet 1 g PO QID PRN Acid Reflux 06/19/21 08/28/21 History montelukast 10 mg tablet 10 mg PO HS 06/20/21 08/28/21 History Omnipod Dash Pods (Gen 4) (insulin #90 ea 06/26/21 07/26/21 Rx pump cart,cont inf,BT) trazodone 50 mg tablet 50 mg PO HS #90 tabs 08/10/21 08/28/21 Rx nitroglycerin 0.4 mg sublingual 0.4 mg sublingual Q5M PRN chest 08/22/21 08/28/21 Rx tablet pain #30 tabs insulin aspart U-100 100 unit/mL 230 unit subcut UD 08/28/21 08/28/21 History subcutaneous solution (Novolog U-100 Insulin aspart) levothyroxine 88 mcg tablet 88 mcg PO DAILYBB 08/28/21 08/28/21 History potassium chloride 10 mEq 10 meq PO QAM 08/28/21 08/28/21 History tablet,extended release prednisone 20 mg tablet 20 mg PO UD 08/28/21 08/28/21 History Patient History Medical History Acute kidney injury superimposed on chronic kidney disease Anemia Antiplatelet or antithrombotic long-term use Asymptomatic carotid artery stenosis Bilateral carotid artery disease Bradycardia CAD (coronary artery disease) Carotid stenosis monitors with Dr Bennett Cerebral arterial aneurysm Cerebral arterial aneurysm "small" behind the right ear - monitors only. [place] [facility] [place] Chest pain due to CAD takes Renexa Chronic reflux esophagitis Cirrhosis Congestive heart failure newly dx 01/2021 Controlled type 2 diabetes mellitus with kidney complication, with long-term current use of insulin Diabetic peripheral neuropathy Gastroparesis Hepatic cirrhosis non-alcoholic History of anemia History of anesthesia reaction "my blood pressure bottomed out and they had to use medication and the pads to restart my heart during my ovarian mass surgery at [facility]" ~. History of ASCVD History of asthma History of depression Hypercholesterolemia Hypertension Hypothyroidism Intestinal metaplasia of gastric mucosa Irritable bowel syndrome hx Mitral regurgitation Nausea and vomiting after administration of anesthetic agent KEREN (obstructive sleep apnea) cpap at night Osteoarthritis Osteopenia Paroxysmal atrial fibrillation newly dx 01/2021. 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. ~[phone]. H/O: hysterectomy ISABEL with unilateral oopherectomy History of breast biopsy right (benign) History of cardiac catheterization 12+ years ago, x1 stent prior to CABG August 2019 [facility]-> transferred to [facility] or [facility] x1 stent placed. History of cataract surgery bilateral History of knee replacement left knee Hx of CABG x4 vessels. 12+ years ago. done at [facility]. follows with Dr Bennett Hx of cataract surgery Hx of colonoscopy (~2013) S/P nasal surgery Status post breast reduction bilateral Family History Mother Carotid artery stenosis Breast cancer Heart failure Myocardial infarction Brother Carotid artery stenosis Peripheral vascular disease Stroke syndrome Hx of CABG Sinusitis Asthma Myocardial infarction Environmental allergies Sister Brain cancer Grandmother Myocardial infarction Denies family history of Ovarian cancer Prostate cancer Crohn's disease Bleeding disorder Colorectal cancer Ulcerative colitis Social History Smoking Status: Never smoker Second Hand Exposure: No; Hx Alcohol Use: Yes Alcohol type: wine Hx Substance Use: No Preferred Language: Indonesian Communication Ability: Effective Visual Impairment: No Limitations Hearing Ability: Normal Occupational Therapy Aide Required: No Beliefs That Will Affect Care: None marital status: Current Living Situation: Spouse 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 HEENT exam is negative. Neck is supple with full carotid upstrokes. No carotid bruits. Jugular is pressure is difficult to assess due to obesity. Cardiovascular exam reveals a regular rhythm with distant heart sounds. No obvious murmurs. No S3. Lungs note decreased breath sounds at the bases and rales above. Abdomen is obese without bruits. Extremities reveal 1+ thigh edema and 2 to 3+ pitting edema distal to the knees. Results & Data ([facility]) Vital Signs (Past 12 Hours) Vital Signs Temp Pulse Pulse Resp BP Pulse Ox Pulse Ox 08/31/21 11:37 36.8 C 86 16 126/62 95 08/31/21 11:00 94 08/31/21 08:23 08/31/21 07:15 37.9 C H 83 18 145/77 H 97 08/31/21 07:12 89 08/31/21 03:00 91 H 20 95 08/31/21 03:00 36.5 C 85 20 110/76 96 O2 Del Method O2 Del Method O2 Flow Rate O2 Flow Rate 08/31/21 11:37 Nasal Cannula 2 08/31/21 11:00 Nasal Cannula 2 08/31/21 08:23 Nasal Cannula 2 08/31/21 07:15 BiPAP 08/31/21 07:12 08/31/21 03:00 2 08/31/21 03:00 CPAP Laboratory Results CBC notes hemoglobin 9.4, crit 28.8, white count 2.1, and platelet count 44774. Electrolytes note a sodium 133, potassium 4.1, chloride 101, bicarb 24, BUN 51, creatinine 2.2, glucose of 100. High sensitivity troponin is 116.5 on presentation with follow-up values of 164.6, and 98.7. BNP is mildly elevated 365. Diagnostic Findings Echocardiogram notes normal left ventricular systolic function with ejection fraction of 60-65%. There was mild LVH along with mild mitral and tricuspid regurgitation. EKG notes normal sinus rhythm with PACs and a lateral ST and T- wave abnormality. Chest x-ray notes cardiomegaly and interstitial edema. PG Care Time/CCT Total # of Minutes Spent Total Time Spent with Patient: Total time spent is greater than 50% in coordination of care (as documented) at patient's floor/unit and/or counseling patient: Coding Level of Care Code 32802 Initial Inpt Care Lvl 3 Diagnoses Congestive heart failure I50.9 Elevated troponin R77.8 CAD (coronary artery disease) I25.10 Paroxysmal atrial fibrillation I48.0
[2021-08-31 13:42] LABS: Erythropoietin 316.2 mIU/mL (2.6-18.5)
--- NOTE | 2021-08-31 17:55 | Hospitalist Progress Note ---
Date of Service August 31, 2021 Assessment & Plan (1) Hypoxia: Plan: X-ray chest, fluid overload continues to be still quite hypervolemic during my assessment, suspect acute on chronic diastolic heart failureincrease IV Lasix significantly; cardiology input (2) Elevated troponin: Plan: Likely type II OK, demand ischemia; continue metoprolol, given soft blood pressure I stopped isosorbide for nowlatter not associated with any mortality benefit and no angina;; cautiously resumed aspirin (3) Controlled type 2 diabetes mellitus with neurologic complication, with long- term current use of insulin: Plan: endorgan damage including chronic kidney disease stage IV More stable sugar; pharmacy glycemic consulted (4) Pancytopenia: Plan: Hematology consulted; at present supportive care recommended, (5) GI bleed: Plan: On 08/29 nursing had reported dark stool with surrounding cameron blood; ct IV PPI, GI input appreciated Noted some question of hematuria but UA does not show impressive number of red cells per high-power field (6) Anemia: Plan: Acute decline of uncertain etiology, possible acute blood loss anemia, history of hemolytic anemia (finish 4 doses of Rituxan, currently on steroid taper) but current LDH not impressive; at present supportive transfusion; MAYNOR 1 dose provided; hematology input appreciated (7) Paroxysmal atrial fibrillation: Plan: Eliquis on hold given GI bleed (8) Hepatic cirrhosis: Plan: Outpatient follow-up in this regard; not encephalopathic (9) 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: Plan: Parameters appear stable, watch for overdiuresis (10) Hypothyroidism: Plan: Last TSH check was in April 2021 and was normally replete we will continue her Synthroid supplementation (11) Obstructive sleep apnea: Plan: Patient is on home sleep apnea with CPAP at 9 (12) Obesity, Class II, BMI 35-39.9: Plan: Lifestyle modification (13) Elevated procalcitonin: Plan: Impressively elevated on second check, no clear localized acute bacterial infection; continue current antibiotics; will consider diagnostic paracentesis but at present will not change analyst Plan Patient is a full code Admission and Anticipated Discharge Date Admission Date: August 28, 2021 Subjective Follow-up of presentation with shortness of breath, GI bleedno bleeding but may be more dyspneic this a.m., Physical Exam Physical Exam: Constitutional and general: No acute distress, looks biologic age Head and face: No puffiness, atraumatic Eyes: No scleral icterus, extraocular movements normal Neck: Supple, no JVD Musculoskeletal: No acute joint swelling, no bony abnormalities Skin/dermatologic/integument: No rash, no purpura Hematologic and lymphatic: pallor ++, no petechia Gastrointestinal/abdomen: distended, soft, nonacute Neurologic: Cranial nerves intact, nonfocal Psychiatry: Awake, alert, pleasant, communicative Cardiovascular: Heart rhythm regular, no rub, no murmur, no gallop Respiratory: Chest movements equal, no use of accessory muscles, no adventitious sounds Extremities: edema ++, no cyanosis Results & Data Results & Data ([facility]) Vital Signs (Past 12 Hours) Vital Signs Temp Pulse Pulse Resp BP Pulse Ox Pulse Ox 08/31/21 15:22 36.3 C L 69 18 119/71 96 08/31/21 14:59 73 08/31/21 11:37 36.8 C 86 16 126/62 95 08/31/21 11:00 94 08/31/21 08:23 08/31/21 07:15 37.9 C H 83 18 145/77 H 97 08/31/21 07:12 89 O2 Del Method O2 Del Method O2 Flow Rate O2 Flow Rate 08/31/21 15:22 Nasal Cannula 2 08/31/21 14:59 08/31/21 11:37 Nasal Cannula 2 08/31/21 11:00 Nasal Cannula 2 08/31/21 08:23 Nasal Cannula 2 08/31/21 07:15 BiPAP 08/31/21 07:12 Laboratory Results Laboratory Results - last 24 hr 08/29/21 08/30/21 08/30/21 07:38 10:00 18:01 WBC RBC Hgb Hct MCV MCH MCHC RDW Std Deviation RDW Coeff of Gomez Plt Count MPV Immature Gran % (Auto) Neut % (Auto) Lymph % (Auto) Esmeralda % (Auto) Eos % (Auto) Baso % (Auto) Neut # (Auto) Lymph # (Auto) Esmeralda # (Auto) Eos # (Auto) Baso # (Auto) Immature Gran # (Auto) Absolute Nucleated RBC Nucleated RBC % (auto) Polychromasia Spherocytes Tear Drop Cells Haptoglobin 262 H Sodium Potassium Chloride Carbon Dioxide Anion Gap BUN Creatinine Est Cr Clr Drug Dosing Est GFR ( Amer) Est GFR (Non-Af Amer) POC Glucose 322 H* Fasting Glucose Calcium Phosphorus Magnesium Erythropoietin 316.2 H Total Bilirubin AST ALT Alkaline Phosphatase Total Protein Albumin Globulin Albumin/Globulin Ratio Urine Legionella Ag SEE NOTE 08/30/21 08/30/21 08/31/21 18:02 20:00 01:51 WBC RBC Hgb Hct MCV MCH MCHC RDW Std Deviation RDW Coeff of Gomez Plt Count MPV Immature Gran % (Auto) Neut % (Auto) Lymph % (Auto) Esmeralda % (Auto) Eos % (Auto) Baso % (Auto) Neut # (Auto) Lymph # (Auto) Esmeralda # (Auto) Eos # (Auto) Baso # (Auto) Immature Gran # (Auto) Absolute Nucleated RBC Nucleated RBC % (auto) Polychromasia Spherocytes Tear Drop Cells Haptoglobin Sodium Potassium Chloride Carbon Dioxide Anion Gap BUN Creatinine Est Cr Clr Drug Dosing Est GFR ( Amer) Est GFR (Non-Af Amer) POC Glucose 299 H 246 H 120 H Fasting Glucose Calcium Phosphorus Magnesium Erythropoietin Total Bilirubin AST ALT Alkaline Phosphatase Total Protein Albumin Globulin Albumin/Globulin Ratio Urine Legionella Ag 08/31/21 08/31/21 08/31/21 06:01 06:01 07:16 WBC 2.09 L RBC 3.17 L Hgb 9.4 L Hct 28.8 L MCV 90.9 MCH 29.7 MCHC 32.6 RDW Std Deviation 63.6 H RDW Coeff of Gomez 19.2 H Plt Count 50 L MPV 11.3 Immature Gran % (Auto) 1.4 Neut % (Auto) 68.4 Lymph % (Auto) 24.4 Esmeralda % (Auto) 5.3 Eos % (Auto) 0.0 Baso % (Auto) 0.5 Neut # (Auto) 1.43 Lymph # (Auto) 0.51 L Esmeralda # (Auto) 0.11 L Eos # (Auto) 0.00 Baso # (Auto) 0.01 Immature Gran # (Auto) 0.03 H Absolute Nucleated RBC 0.06 H Nucleated RBC % (auto) 2.9 Polychromasia 1+ Spherocytes 1+ Tear Drop Cells 1+ Haptoglobin Sodium 133 L Potassium 4.1 Chloride 101 Carbon Dioxide 24 Anion Gap 8 BUN 51 H Creatinine 2.81 H Est Cr Clr Drug Dosing 20.6 Est GFR ( Amer) 19.0 Est GFR (Non-Af Amer) 16.4 POC Glucose 105 H Fasting Glucose 100 H Calcium 7.6 L Phosphorus 2.9 Magnesium 2.2 Erythropoietin Total Bilirubin 1.4 H AST 56 H ALT 110 H Alkaline Phosphatase 117 H Total Protein 5.1 L Albumin 2.5 L Globulin 2.6 Albumin/Globulin Ratio 1.0 Urine Legionella Ag 08/31/21 08/31/21 11:17 16:22 WBC RBC Hgb Hct MCV MCH MCHC RDW Std Deviation RDW Coeff of Gomez Plt Count MPV Immature Gran % (Auto) Neut % (Auto) Lymph % (Auto) Esmeralda % (Auto) Eos % (Auto) Baso % (Auto) Neut # (Auto) Lymph # (Auto) Esmeralda # (Auto) Eos # (Auto) Baso # (Auto) Immature Gran # (Auto) Absolute Nucleated RBC Nucleated RBC % (auto) Polychromasia Spherocytes Tear Drop Cells Haptoglobin Sodium Potassium Chloride Carbon Dioxide Anion Gap BUN Creatinine Est Cr Clr Drug Dosing Est GFR ( Amer) Est GFR (Non-Af Amer) POC Glucose 191 H 165 H Fasting Glucose Calcium Phosphorus Magnesium Erythropoietin Total Bilirubin AST ALT Alkaline Phosphatase Total Protein Albumin Globulin Albumin/Globulin Ratio Urine Legionella Ag PG Care Time/CCT Total # of Minutes Spent Total Time Spent with Patient: Total time spent is greater than 50% in coordination of care (as documented) at patient's floor/unit and/or counseling patient: Coding Level of Care Code 42066 Subseq Hosp Care Lvl 2 Diagnoses Hypoxia R09.02 Elevated troponin R77.8 Controlled type 2 diabetes mellitus with neurologic complication, with long-term current use of insulin E11.49; Z79.4 Pancytopenia D61.818 GI bleed K92.2 Anemia D64.9 Paroxysmal atrial fibrillation I48.0 Hepatic cirrhosis K74.69 Hepatic cirrhosis type: other cirrhosis 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
[2021-08-31] MEDS: MONTELUKAST SODIUM 10 MG TABLET PO SCH (20:17)
[2021-08-31] MEDS: traZODone HCL 50 MG TAB PO SCH (20:17)
[2021-08-31] MEDS ORDERED: FUROSEMIDE 40 MG/4 ML VIAL IV SCH (21:00)
[2021-08-31] MEDS ORDERED: LANTUS PER UNIT CHARGE SQ ONE (21:00)
[2021-09-01] MEDS: LEVOTHYROXINE SODIUM 88 MCG TABLET PO SCH (05:49)
[2021-09-01 08:01] LABS: Hematocrit (blood only) 31.1 % (34.1-44.9); Mean Corpuscular Hemoglobin 29.3 pg (25.0-34.0); Mean Corpuscular Hgb Conc 32.2 g/dL (32.0-36.0); Mean Corpuscular Volume 91.2 fL (80.0-100.0); Mean Platelet Volume 12.2 fL (9.4-12.3); Nucleated RBC # (auto) 0.04 K/uL (0-0); Nucleated RBC % (auto) 1.8 %; Platelet Count 55 K/uL (130-400); RDW Coefficient of Variation 18.8 % (11.5-14.5); RDW Standard Deviation 62.4 fL (36.4-46.3); Red Blood Count 3.41 M/uL (3.93-5.22); White Blood Count 2.23 K/ul (4.8-10.8)
[2021-09-01 08:25] LABS: Basophils # (auto) 0.01 K/uL (0-0.2); Basophils % (auto) 0.4 %; Dohle Bodies 1+; Eosinophils # (auto) 0.01 K/uL (0-0.50); Eosinophils % (auto) 0.4 %; Immature Granulocytes # (auto) 0.05 K/uL (0.00-0.02); Immature Granulocytes % (auto) 2.2 %; Lymphocytes # (auto) 0.51 K/uL (1.2-3.4); Lymphocytes % (auto) 22.9 %; Monocytes # (auto) 0.17 K/uL (0.24-0.82); Monocytes % (auto) 7.6 %; Neutrophils # (auto) 1.48 K/uL (1.4-6.5); Neutrophils % (auto) 66.5 %; Polychromasia 1+; Tear Drop Cells 1+; Toxic Granulation 1+
[2021-09-01] MEDS: INSULIN ASPART PER UNIT SC SCH ×4 (08:32→20:35)
[2021-09-01 08:34] LABS: Albumin Level 2.6 gm/dl (3.4-5.0); Bilirubin,Total 1.3 mg/dl (0.2-1.0); Calcium 8.1 mg/dl (8.5-10.1); Est GFR (African American) 16.3 ml/min; Est GFR (Non-African American) 14.1 ml/min; Globulin 2.7 gm/dl (2.5-4.0); Magnesium 2.2 mg/dl (1.7-2.4); Phosphorus 3.3 mg/dl (2.5-4.9); Potassium 4.2 mmol/L (3.5-5.1); Total Protein 5.3 gm/dl (6.0-8.3)
[2021-09-01] MEDS: FLUTICASONE/VILANTEROL 200/25MCG 14 PUFFS/INHALER INH SCH (08:34)
[2021-09-01] MEDS: PANTOprazole 40 MG in SYRINGE 0 ML IV SCH ×2 (08:34→20:39)
[2021-09-01] MEDS: UMECLIDINIUM BROMIDE 62.5MCG/BLISTER 7 PUFFS/INHALER INH SCH (08:34)
[2021-09-01] MEDS: FERROUS SULFATE 325 MG TAB PO SCH (08:35)
[2021-09-01] MEDS: METOPROLOL SUCC 25MG EXT REL TAB PO SCH ×2 (08:35→20:40)
[2021-09-01] MEDS: SERTRALINE HCL 100 MG TABLET PO SCH (08:35)
[2021-09-01] MEDS: CYANOCOBALAMIN (B-12) 500 MCG TABLET PO SCH (08:35)
[2021-09-01] MEDS: CALCIUM 600MG + VIT D 400 IU TAB PO SCH (08:35)
[2021-09-01] MEDS: predniSONE 20 MG TAB PO SCH (08:35)
[2021-09-01] MEDS: ROSUVASTATIN CALCIUM 20 MG TAB PO SCH (08:36)
[2021-09-01] MEDS: SPIRONOLACTONE 100 MG TAB PO SCH (08:36)
[2021-09-01] MEDS: ASPIRIN 81 MG ECTAB PO SCH (08:36)
[2021-09-01] MEDS: FUROSEMIDE 40 MG/4 ML VIAL IV SCH ×2 (08:37→20:39)
[2021-09-01] MEDS: POTASSIUM CHLORIDE 10 MEQ TABCR PO SCH (08:40)
[2021-09-01] MEDS: LANTUS PER UNIT CHARGE SQ SCH ×2 (08:45→20:36)
[2021-09-01] MEDS: cefTRIAXone SODIUM 2,000 MG in DEXTROSE 5% 50 ML IV SCH (08:51)
[2021-09-01] MEDS ORDERED: AZITHROMYCIN 250 MG TAB PO SCH ×2 (09:00)
[2021-09-01] MEDS: ALUMINUM/MAGNESIUM SUSP 30 ML UDC PO PRN (11:41)
[2021-09-01 14:28] LABS: Base Excess ABG 2.3 mEq/L (-9-1.8); HCO3 ABG 25 mmol/L (19-24); Oxygen Saturation ABG 81.1 % (90-95); PCO2 ABG 31 mmHg (35-46); PO2 ABG 46 mmHg (80-95)
[2021-09-01 14:37] LABS: Allen Test Pos (Pos)
[2021-09-01 14:38] LABS: pH ABG 7.51 (7.35-7.45)
[2021-09-01] MEDS ORDERED: metOLazone 5 MG TABLET PO ONE (14:41)
--- NOTE | 2021-09-01 16:06 | CT Scan Report ---
CT SCAN OF THE ABDOMEN AND PELVIS WITHOUT IV CONTRAST CLINICAL HISTORY: Generalized abdominal pain. COMPARISON STUDY: Abdominal CT dated 06/20/2021. TECHNIQUE: CT scan of the abdomen and pelvis is performed from the lung bases to the proximal femora. Images are reviewed in the axial, sagittal, and coronal planes. IV contrast was not administered for this examination. Note that the examination is significantly suboptimal without oral and IV contrast . A dose lowering technique was utilized adhering to the principles of ALARA. CT DOSE: 1309.97 mGy.cm FINDINGS: Lung bases: The heart is mildly enlarged and without pericardial effusion. The coronary arteries are densely calcified. There is patchy airspace consolidation at the right lung base. Segmental atelectas is is noted at the left lung base. Chana septal thickening is present in both lower lobes. No pleur al effusion is identified. Liver: The unenhanced liver is cirrhotic in morphology and heterogeneous in attenuation. There is nod ularity of the surface contour and hypertrophy of the left lobe. There is no intrahepatic biliary jessy ana dilatation. Gallbladder: Unremarkable. Spleen: The spleen is enlarged measuring 18.8 cm in length. Pancreas: The unenhanced pancreas is atrophic and grossly unremarkable. Adrenal glands: Unremarkable. Kidneys: The unenhanced kidneys are atrophic and without hydronephrosis. There are no renal calculi i dentified. There is no evidence of contour deforming renal mass lesion. Abdominal vasculature: The abdominal aorta is normal in course and caliber noting advanced atheroscle rotic calcification. Bowel: There is mild colonic diverticulosis without CT evidence of acute diverticulitis. Moderate iona unt of fecal retention is noted throughout the colon. There is wall thickening and edema of the right colon. No bowel obstruction is identified. The appendix is not identified. Peritoneum: There is a small to moderate volume of abdominopelvic ascites. No intraperitoneal free ai r is identified. Lymphadenopathy: None. Pelvic viscera: The bladder is normal as visualized. The uterus is surgically absent. No adnexal lesi on is seen. Skeletal structures: The skeletal structures are osteopenic. There is mild lumbosacral spondylosis. N o lytic or blastic lesions are seen. Soft tissues: There is anasarca of the body wall. IMPRESSION: 1. Cardiomegaly with evidence of congestive failure. 2. Patchy airspace opacities at the right lung base are nonspecific and could represent atelectasis v ersus an infectious/inflammatory pneumonitis. Clinical correlation will be required. 3. Cirrhotic liver morphology. 4. There is wall thickening and edema of the right colon, possibly representing portal colopathy. Cor relate clinically for evidence of a nonspecific colitis. 5. Marked splenomegaly abdominopelvic ascites indicate portal hypertension. 6. There is anasarca of the body wall. 7. Additional findings as above. ACT 112: Negative or not required by law. Electronically signed by: Arcadio Sutton M.D. 09/01/2021 4:04 PM
--- NOTE | 2021-09-01 16:58 | Hospitalist Progress Note ---
Date of Service September 01, 2021 Assessment & Plan (1) Hypoxia: Plan: Acute hypoxic respiratory failure secondary to acute on chronic diastolic heart failure; likely has renal salt and water retention Continue aggressive diuresisas yet no significant response though did have leakage on the bed and therefore output not accurate; 1 dose metolazone; If no better Lasix dripsooner rather than later ABG notedrespiratory alkalosis consistent with fluid overload At present does not need ICU but slight deterioration and could (2) Elevated troponin: Plan: Likely type II AR, demand ischemia; continue metoprolol, given soft blood pressure I stopped isosorbide for nowlatter not associated with any mortality benefit and no angina;; cautiously resumed aspirin (3) Controlled type 2 diabetes mellitus with neurologic complication, with long- term current use of insulin: Plan: endorgan damage including chronic kidney disease stage IV More stable sugar; pharmacy glycemic consulted (4) Pancytopenia: Plan: Hematology consulted; at present supportive care recommended, (5) GI bleed: Plan: On 08/29 nursing had reported dark stool with surrounding cameron blood; ct IV PPI, GI input appreciated Noted some question of hematuria but UA does not show impressive number of red cells per high-power field (6) Anemia: Plan: Acute decline of uncertain etiology, possible acute blood loss anemia, history of hemolytic anemia (finish 4 doses of Rituxan, currently on steroid taper) but current LDH not impressive; at present supportive transfusion; MAYNOR 1 dose provided; hematology input appreciated ; At present this issue seems to have stabilized (7) Paroxysmal atrial fibrillation: Plan: Eliquis on hold given GI bleed (8) Hepatic cirrhosis: Plan: Outpatient follow-up in this regard; not encephalopathic (9) 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: Plan: Noted higher creatinine but has been in this range before Likely contributing to fluid overload UPC and UA See #1nephrology consulted; if no significant improvement could need BUCKET CHUCKER (10) Hypothyroidism: Plan: Last TSH check was in April 2021 and was normally replete we will continue her Synthroid supplementation (11) Obstructive sleep apnea: Plan: Patient is on home sleep apnea with CPAP at 9 (12) Obesity, Class II, BMI 35-39.9: Plan: Lifestyle modification (13) Elevated procalcitonin: Plan: Impressively elevated on second check, no clear localized acute bacterial infection though given abdominal symptoms CT obtainednothing clearly acute but added metronidazole; can consider diagnostic paracentesis but 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 (14) Abdominal pain: Plan: CT abdomenno clear acute findings though question of nonspecific colitis; added metronidazole; ischemic colitis in the differential but initial treatment is always conservative Follow-up closely (Chest findings notedon Rocephin plus Flagyl) Plan Mild hyponatremia notedmodest fluid restriction provided Admission and Anticipated Discharge Date Admission Date: August 28, 2021 Subjective Follow-up of presentation with shortness of breath, GI bleedsomewhat lethargic this a.m.; earlier had upper abdominal discomfort that has resolved Physical Exam Physical Exam: Constitutional and general: Looks unwell, looks biologic age, somewhat lethargic Head and face: +puffiness, atraumatic Eyes: No scleral icterus, extraocular movements normal Neck: Supple, no JVD Musculoskeletal: No acute joint swelling, no bony abnormalities Skin/dermatologic/integument: No rash, no purpura Hematologic and lymphatic: pallor ++, no petechia Gastrointestinal/abdomen: distended, nonperitoneal but nonspecific upper abdominal tenderness Neurologic: Cranial nerves intact, nonfocal Psychiatry: Awake, alert, pleasant, communicative Cardiovascular: Heart rhythm regular, no rub, no murmur, no gallop Respiratory: Chest movements equal, no use of accessory muscles, no adventitious sounds Extremities: edema ++, no cyanosis Results & Data Results & Data ([facility]) Vital Signs (Past 12 Hours) Vital Signs Temp Pulse Pulse Resp BP Pulse Ox O2 Del Method 09/01/21 15:54 78 09/01/21 15:25 37.2 C 76 20 109/69 96 Nasal Cannula 09/01/21 11:26 37.0 C 81 20 135/66 90 Nasal Cannula 09/01/21 10:46 Nasal Cannula 09/01/21 09:34 86 24 90 Nasal Cannula 09/01/21 08:21 80 09/01/21 07:28 37.3 C 76 18 141/78 H 95 Nasal Cannula O2 Flow Rate 09/01/21 15:54 09/01/21 15:25 2 09/01/21 11:26 2 09/01/21 10:46 2 09/01/21 09:34 2 09/01/21 08:21 09/01/21 07:28 2 Laboratory Results Laboratory Results - last 24 hr 07/20/22 07/22/22 07/23/22 08:29 20:01 07:27 WBC 2.23 L RBC 3.41 L Hgb 10.0 L Hct 31.1 L MCV 91.2 MCH 29.3 MCHC 32.2 RDW Std Deviation 62.4 H RDW Coeff of Gomez 18.8 H Plt Count 55 L MPV 12.2 Immature Gran % (Auto) 2.2 Neut % (Auto) 66.5 Lymph % (Auto) 22.9 Ware % (Auto) 7.6 Eos % (Auto) 0.4 Baso % (Auto) 0.4 Neut # (Auto) 1.48 Lymph # (Auto) 0.51 L [place] # (Auto) 0.17 L Eos # (Auto) 0.01 Baso # (Auto) 0.01 Immature Gran # (Auto) 0.05 H Absolute Nucleated RBC 0.04 H Nucleated RBC % (auto) 1.8 Toxic Granulation 1+ Dohle Bodies 1+ Polychromasia 1+ Tear Drop Cells 1+ ABG pH ABG pCO2 ABG pO2 ABG HCO3 ABG O2 Saturation ABG Base Excess Tenzin Test Oxygen Given Sodium Potassium Chloride Carbon Dioxide Anion Gap BUN Creatinine Est Cr Clr Drug Dosing Est GFR ( Amer) Est GFR (Non-Af Amer) POC Glucose 261 H Fasting Glucose Calcium Phosphorus Magnesium Total Bilirubin AST ALT Alkaline Phosphatase Total Protein Albumin Globulin Albumin/Globulin Ratio Crossmatch See Detail 09/01/21 09/01/21 09/01/21 07:27 07:30 11:23 WBC RBC Hgb Hct MCV MCH MCHC RDW Std Deviation RDW Coeff of Gomez Plt Count MPV Immature Gran % (Auto) Neut % (Auto) Lymph % (Auto) Ware % (Auto) Eos % (Auto) Baso % (Auto) Neut # (Auto) Lymph # (Auto) Ware # (Auto) Eos # (Auto) Baso # (Auto) Immature Gran # (Auto) Absolute Nucleated RBC Nucleated RBC % (auto) Toxic Granulation Dohle Bodies Polychromasia Tear Drop Cells ABG pH ABG pCO2 ABG pO2 ABG HCO3 ABG O2 Saturation ABG Base Excess Tenzin Test Oxygen Given Sodium 133 L Potassium 4.2 Chloride 98 Carbon Dioxide 27 Anion Gap 8 BUN 58 H Creatinine 3.18 H D Est Cr Clr Drug Dosing 18.0 Est GFR ( Amer) 16.3 Est GFR (Non-Af Amer) 14.1 POC Glucose 186 H 167 H Fasting Glucose 177 H Calcium 8.1 L Phosphorus 3.3 Magnesium 2.2 Total Bilirubin 1.3 H AST 78 H ALT 155 H Alkaline Phosphatase 149 H Total Protein 5.3 L Albumin 2.6 L Globulin 2.7 Albumin/Globulin Ratio 1.0 Crossmatch 09/01/21 09/01/21 14:15 16:19 WBC RBC Hgb Hct MCV MCH MCHC RDW Std Deviation RDW Coeff of Gomez Plt Count MPV Immature Gran % (Auto) Neut % (Auto) Lymph % (Auto) Ware % (Auto) Eos % (Auto) Baso % (Auto) Neut # (Auto) Lymph # (Auto) Ware # (Auto) Eos # (Auto) Baso # (Auto) Immature Gran # (Auto) Absolute Nucleated RBC Nucleated RBC % (auto) Toxic Granulation Dohle Bodies Polychromasia Tear Drop Cells ABG pH 7.51 H* ABG pCO2 31 L ABG pO2 46 L ABG HCO3 25 H ABG O2 Saturation 81.1 L ABG Base Excess 2.3 H Tenzin Test Pos Oxygen Given 2L Sodium Potassium Chloride Carbon Dioxide Anion Gap BUN Creatinine Est Cr Clr Drug Dosing Est GFR ( Amer) Est GFR (Non-Af Amer) POC Glucose 269 H Fasting Glucose Calcium Phosphorus Magnesium Total Bilirubin AST ALT Alkaline Phosphatase Total Protein Albumin Globulin Albumin/Globulin Ratio Crossmatch PG Care Time/CCT Total # of Minutes Spent Total Time Spent with Patient: Total time spent is greater than 50% in coordination of care (as documented) at patient's floor/unit and/or counseling patient: Coding Level of Care Code 98970 Subseq Hosp Care Lvl 2 Diagnoses Hypoxia R09.02 Elevated troponin R77.8 Controlled type 2 diabetes mellitus with neurologic complication, with long-term current use of insulin E11.49; Z79.4 Pancytopenia D61.818 GI bleed K92.2 Anemia D64.9 Paroxysmal atrial fibrillation I48.0 Hepatic cirrhosis K74.69 Hepatic cirrhosis type: other cirrhosis 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
[2021-09-01] MEDS: metroNIDAZOLE 500 MG/100 ML BAG IV SCH (17:50)
[2021-09-01] MEDS: traZODone HCL 50 MG TAB PO SCH (20:39)
[2021-09-01] MEDS: MONTELUKAST SODIUM 10 MG TABLET PO SCH (20:39)
--- NOTE | 2021-09-01 21:12 | Nephrology Consultation ---
Date of Consultation September 01, 2021 Assessment & Plan (1) Acute kidney injury superimposed on chronic kidney disease: Clinically consistent with acute CRS. Non-oliguric. Electrolytes acceptable. No emergent indication for dialysis. Document strict I/O's. Repeat metabolic profile tomorrow AM. Potential future indications for ANESTHESIOLOGY TECH discussed in detail tody. 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 Hold oral KCl and spironolactone. Renal diet. Medications otherwise appropriately dosed for kidney dysfunction. Records from Dr. Calixto reviewed in detail. Imaging and urine studies reviewed. (3) Hepatic cirrhosis: MELD ~20. Goals of care discussed. I would not advise PD. Focus on IHD, if needed. GI consultation reviewed. (4) Anemia: Hematology consultation reviewed. Management per heme. (5) Acute diastolic (congestive) heart failure: Continue furosemide 80 mg IV BID. Non-oliguric. Volume status improving. History of Present Illness Reason for Consultation: ASHOK/CKD Requesting Physician: Silvia Yoon MD Attending Physician: Silvia Yoon MD History of Present Illness Mrs. Nat Kaur is a 89 year-old female with advanced CKD attributed to microvascular disease. Nat has CKD IV with a baseline creatinine of ~2.5-3.0 mg/dL. She was admitted to [facility] with a creatinine of 2.7 mg/dL. Creatinine on August 31 was 2.8 mg/dL and this AM 3.2 mg/dL. Electrolytes have been normal. Nat is non-oliguric. She presented to the hospital with hypoxic respiratory failure and acute on chronic HFpEF. She is diuresing but remains slightly tachypneic with difficulty weaning O2. Medical history is notable for morbid obesity, DMII, hypertension, KEREN, CAD with history of CABG x 3 in 2019, HFpEF, cor pulmonale, PAF, chronic back pain, CARR with cirrhosis, and autoimmune hemolytic anemia. Laparotomy was performed for resection of an adnexal mass in August 2019. She recently completed treatment with Rituxan on August 22 for AIHA. . She presented to [facility] on August 28 with 2 weeks of progressive lower extremity weakness and generalized fatigue. She was admitted with myopathy, possible UTI, possible pneumonia, and acute CHF. Shortly after admission she passed stool with blood. EGD in March negative and colonoscopy in 2019 normal. No additional signs of bleeding and GI evaluation has been deferred. She remains on ceftriaxone and azithromycin. She is receiving furosemide 80 mg IV twice daily and was given a dose of metolazone today. She is net negative >1.5 L in past 24 hours (I/O's complicated by purewick). Most recent urine studies have been acellular. CT of the abdomen and pelvis revealed the kidneys to be unobstructed. I met with Nat in her hospital room this evening. We reviewed the plan of care and discussed potential future indications for dialysis. She is receptive. Nat follows in the outpatient nephrology clinic with Dr. Calixto. She has been educated on potential ANESTHESIOLOGY TECH options. She is interested in possible home therapies in the future but it was unclear if PD would be an option given her prior abdominal surgery. I advised her today that liver disease and ascites can be associated with increased risk for peritonitis as well. However, Nat currently feels well and is hoping to defer dialysis as long as possible. MELD score currently ~20. Allergies Allergy/AdvReac Type Severity Reaction Status Date / Time levofloxacin Allergy Intermediate rash Verified 08/28/21 07:11 enalapril Allergy Unknown DRY COUGH Verified 08/28/21 07:11 insulin detemir Allergy Unknown HIVES Verified 08/28/21 07:11 enalaprilat [From Vasotec] Allergy Unknown Verified 08/28/21 07:11 Home Medications Medication Instructions Recorded Confirmed Type calcium carbonate 600 mg-vitamin 1 tab PO QAM 08/27/18 08/28/21 History D3 20 mcg (800 unit) chewable tablet (Caltrate 600 plus D) fexofenadine 180 mg tablet 180 mg PO DAILY PRN ALLERGIES 08/27/18 08/28/21 History (Chelsie Allergy) ipratropium bromide 21 mcg (0.03 1 spray intranasal UD PRN sinus 08/27/18 08/28/21 History %) nasal spray congestion tramadol 50 mg tablet 50 mg PO Q6H PRN Pain #60 tabs 09/04/18 08/28/21 Rx blood sugar diagnostic (FreeStyle 03/15/19 07/26/21 History Test) cholecalciferol (vitamin D3) 25 25 mcg PO QAM 03/09/21 08/28/21 History mcg (1,000 unit) tablet cyanocobalamin (vitamin B-12) 500 1,000 mcg PO QAM 03/09/21 08/28/21 History mcg tablet rosuvastatin 40 mg tablet 40 mg PO QAM 03/09/21 08/28/21 History sodium bicarbonate 650 mg tablet 650 mg PO QAM stomach upset 03/09/21 08/28/21 History blood-glucose sensor (Dexcom G6 #1 ea 03/21/21 07/26/21 Rx Sensor) apixaban 5 mg tablet 5 mg PO BID #180 tabs 05/30/21 08/28/21 Rx spironolactone 100 mg tablet 100 mg PO QAM #90 tabs 06/06/21 08/28/21 Rx tiotropium bromide 18 mcg capsule 1 cap inhalation QAM 90 days #90 06/06/21 08/28/21 Rx with inhalation device (Spiriva inhalations with HandiHaler) albuterol sulfate 90 mcg/actuation 2 puff inhalation Q4 PRN Shortness 06/07/21 08/28/21 Rx aerosol inhaler (Ventolin HFA) Of Breath Or Wheezing #54 grams fluticasone furoate 200 1 inh inhalation QAM #180 ea 06/07/21 08/28/21 Rx mcg-vilanterol 25 mcg/dose inhalation powder (Breo Ellipta) furosemide 40 mg tablet (Lasix) 40 mg PO QAM #120 tabs 06/07/21 08/28/21 Rx levalbuterol HCl 1.25 mg/3 mL 1.25 mg (3 mL) inhalation TID PRN 06/07/21 08/28/21 Rx solution for nebulization ASTHMA #810 mL metoprolol succinate 50 mg 75 mg PO BID #270 tabs 06/07/21 08/28/21 Rx tablet,extended release 24 hr olopatadine 0.1 % eye drops 1 drp ophthalmic (eye) BID PRN 06/07/21 08/28/21 Rx AFFECTED EYE with allergies #10 mL Oxygen Home #1 ea 06/18/21 07/26/21 Rx amlodipine 5 mg tablet (Norvasc) 10 mg PO QAM 06/18/21 08/28/21 History aspirin 81 mg capsule 81 mg PO QAM 06/18/21 08/28/21 History famotidine 20 mg tablet 20 mg PO BID 06/18/21 08/28/21 History ferrous sulfate 325 mg (65 mg 325 mg PO QAM 06/18/21 08/28/21 History iron) tablet sertraline 100 mg tablet 100 mg PO QAM 06/18/21 08/28/21 History isosorbide mononitrate 120 mg 120 mg PO QAM 06/19/21 08/28/21 History tablet,extended release 24 hr pantoprazole 40 mg tablet,delayed 40 mg PO BID 06/19/21 08/28/21 History release sucralfate 1 gram tablet 1 g PO QID PRN Acid Reflux 06/19/21 08/28/21 History montelukast 10 mg tablet 10 mg PO HS 06/20/21 08/28/21 History Omnipod Dash Pods (Gen 4) (insulin #90 ea 06/26/21 07/26/21 Rx pump cart,cont inf,BT) trazodone 50 mg tablet 50 mg PO HS #90 tabs 08/10/21 08/28/21 Rx nitroglycerin 0.4 mg sublingual 0.4 mg sublingual Q5M PRN chest 08/22/21 08/28/21 Rx tablet pain #30 tabs insulin aspart U-100 100 unit/mL 230 unit subcut UD 08/28/21 08/28/21 History subcutaneous solution (Novolog U-100 Insulin aspart) levothyroxine 88 mcg tablet 88 mcg PO DAILYBB 08/28/21 08/28/21 History potassium chloride 10 mEq 10 meq PO QAM 08/28/21 08/28/21 History tablet,extended release prednisone 20 mg tablet 20 mg PO UD 08/28/21 08/28/21 History Patient History Medical History (Updated 09/01/21 @ 21:27 by Rafiq Rivera DO) Acute kidney injury superimposed on chronic kidney disease Anemia Antiplatelet or antithrombotic long-term use Asymptomatic carotid artery stenosis Bilateral carotid artery disease Bradycardia CAD (coronary artery disease) Carotid stenosis monitors with Dr Bennett Cerebral arterial aneurysm Cerebral arterial aneurysm "small" behind the right ear - monitors only. followed with [facility] neurology Chest pain due to CAD takes Renexa Chronic reflux esophagitis Cirrhosis Congestive heart failure newly dx 01/2021 Controlled type 2 diabetes mellitus with kidney complication, with long-term current use of insulin Diabetic peripheral neuropathy Gastroparesis Hepatic cirrhosis non-alcoholic History of anemia History of anesthesia reaction "my blood pressure bottomed out and they had to use medication and the pads to restart my heart during my ovarian mass surgery at [facility]" ~. History of ASCVD History of asthma History of depression Hypercholesterolemia Hypertension Hypothyroidism Intestinal metaplasia of gastric mucosa Irritable bowel syndrome hx Mitral regurgitation Nausea and vomiting after administration of anesthetic agent KEREN (obstructive sleep apnea) cpap at night Osteoarthritis Osteopenia Paroxysmal atrial fibrillation newly dx 01/2021. 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 ~[id number]. H/O: hysterectomy SIABEL with unilateral oopherectomy History of breast biopsy right (benign) History of cardiac catheterization 12+ years ago, x1 stent prior to CABG August 2019 [facility]-> transferred to [facility] or [facility] x1 stent placed. History of cataract surgery bilateral History of knee replacement left knee Hx of CABG x4 vessels. 12+ years ago. done at [facility]. follows with Dr Bennett Hx of cataract surgery Hx of colonoscopy (~2013) S/P nasal surgery Status post breast reduction bilateral Family History Mother Carotid artery stenosis Breast cancer Heart failure Myocardial infarction Brother Carotid artery stenosis Peripheral vascular disease Stroke syndrome Hx of CABG Sinusitis Asthma Myocardial infarction Environmental allergies Sister Brain cancer Grandmother Myocardial infarction Denies family history of Ovarian cancer Prostate cancer Crohn's disease Bleeding disorder Colorectal cancer Ulcerative colitis Social History Smoking Status: Never smoker Second Hand Exposure: No; Hx Alcohol Use: Yes Alcohol type: wine Hx Substance Use: No Preferred Language: Croatian Communication Ability: Effective Visual Impairment: No Limitations Hearing Ability: Normal 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: No Beliefs That Will Affect Care: None marital status: Current Living Situation: Spouse 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 How many Children do You have: 1 Feels Safe at Home: Yes Childhood Exposure to Second-Hand Smoke: Yes Dental Care, Regularly: Yes Physical Activity Frequency: Does not Exercise Seatbelt Use: always Sunscreen Use: Yes Assistive Devices: Lift Chair and Walker Review of Systems Review of Systems: All systems reviewed & are unremarkable except as noted in HPI & below Constitutional: + weakness Physical Exam Constitutional: well developed and + morbidly obese; no acute distress Eyes: + anicteric sclerae; no corneal abnormality ENMT: Mouth: no oral mucosal abnormality and oral mucous membranes not dry Neck: normal visual inspection and trachea midline Respiratory: normal respiratory effort and + tachypneic Auscultation: + diminished lung sounds and + rales Cardiovascular: Rate/Rhythm: regular rate Heart Sounds: normal S1 and normal S2 Extremities: + edema Musculoskeletal: Extremities: no cyanosis and no clubbing Skin: normal turgor; no lesions Neurologic: Motor/Sensory: no tremor and no asterixis Psychiatric: Orientation: alert and oriented x 3 Results & Data ([facility]) Vital Signs (Past 12 Hours) Vital Signs Temp Pulse Pulse Resp BP Pulse Ox O2 Del Method 09/01/21 19:00 36.4 C L 75 18 137/69 94 Room Air 09/01/21 15:54 78 09/01/21 15:25 37.2 C 76 20 109/69 96 Nasal Cannula 09/01/21 11:26 37.0 C 81 20 135/66 90 Nasal Cannula 09/01/21 10:46 Nasal Cannula 09/01/21 09:34 86 24 90 Nasal Cannula O2 Flow Rate 09/01/21 19:00 09/01/21 15:54 09/01/21 15:25 2 09/01/21 11:26 2 09/01/21 10:46 2 09/01/21 09:34 2 Laboratory Results Laboratory Results - last 24 hr 08/29/21 09/01/21 09/01/21 08:29 07:27 07:27 WBC 2.23 L RBC 3.41 L Hgb 10.0 L Hct 31.1 L MCV 91.2 MCH 29.3 MCHC 32.2 RDW Std Deviation 62.4 H RDW Coeff of Gomez 18.8 H Plt Count 55 L MPV 12.2 Immature Gran % (Auto) 2.2 Neut % (Auto) 66.5 Lymph % (Auto) 22.9 [place] % (Auto) 7.6 Eos % (Auto) 0.4 Baso % (Auto) 0.4 Neut # (Auto) 1.48 Lymph # (Auto) 0.51 L [place] # (Auto) 0.17 L Eos # (Auto) 0.01 Baso # (Auto) 0.01 Immature Gran # (Auto) 0.05 H Absolute Nucleated RBC 0.04 H Nucleated RBC % (auto) 1.8 Toxic Granulation 1+ Dohle Bodies 1+ Polychromasia 1+ Tear Drop Cells 1+ ABG pH ABG pCO2 ABG pO2 ABG HCO3 ABG O2 Saturation ABG Base Excess Tenzin Test Oxygen Given Sodium 133 L Potassium 4.2 Chloride 98 Carbon Dioxide 27 Anion Gap 8 BUN 58 H Creatinine 3.18 H D Est Cr Clr Drug Dosing 18.0 Est GFR ( Amer) 16.3 Est GFR (Non-Af Amer) 14.1 POC Glucose Fasting Glucose 177 H Calcium 8.1 L Phosphorus 3.3 Magnesium 2.2 Total Bilirubin 1.3 H AST 78 H ALT 155 H Alkaline Phosphatase 149 H Total Protein 5.3 L Albumin 2.6 L Globulin 2.7 Albumin/Globulin Ratio 1.0 Crossmatch See Detail 09/01/21 09/01/21 09/01/21 07:30 11:23 14:15 WBC RBC Hgb Hct MCV MCH MCHC RDW Std Deviation RDW Coeff of Gomez Plt Count MPV Immature Gran % (Auto) Neut % (Auto) Lymph % (Auto) [place] % (Auto) Eos % (Auto) Baso % (Auto) Neut # (Auto) Lymph # (Auto) [place] # (Auto) Eos # (Auto) Baso # (Auto) Immature Gran # (Auto) Absolute Nucleated RBC Nucleated RBC % (auto) Toxic Granulation Dohle Bodies Polychromasia Tear Drop Cells ABG pH 7.51 H* ABG pCO2 31 L ABG pO2 46 L ABG HCO3 25 H ABG O2 Saturation 81.1 L ABG Base Excess 2.3 H Tenzin Test Pos Oxygen Given 2L Sodium Potassium Chloride Carbon Dioxide Anion Gap BUN Creatinine Est Cr Clr Drug Dosing Est GFR ( Amer) Est GFR (Non-Af Amer) POC Glucose 186 H 167 H Fasting Glucose Calcium Phosphorus Magnesium Total Bilirubin AST ALT Alkaline Phosphatase Total Protein Albumin Globulin Albumin/Globulin Ratio Crossmatch 09/01/21 09/01/21 16:19 20:08 WBC RBC Hgb Hct MCV MCH MCHC RDW Std Deviation RDW Coeff of Gomez Plt Count MPV Immature Gran % (Auto) Neut % (Auto) Lymph % (Auto) [place] % (Auto) Eos % (Auto) Baso % (Auto) Neut # (Auto) Lymph # (Auto) [place] # (Auto) Eos # (Auto) Baso # (Auto) Immature Gran # (Auto) Absolute Nucleated RBC Nucleated RBC % (auto) Toxic Granulation Dohle Bodies Polychromasia Tear Drop Cells ABG pH ABG pCO2 ABG pO2 ABG HCO3 ABG O2 Saturation ABG Base Excess Tenzin Test Oxygen Given Sodium Potassium Chloride Carbon Dioxide Anion Gap BUN Creatinine Est Cr Clr Drug Dosing Est GFR ( Amer) Est GFR (Non-Af Amer) POC Glucose 269 H 269 H Fasting Glucose Calcium Phosphorus Magnesium Total Bilirubin AST ALT Alkaline Phosphatase Total Protein Albumin Globulin Albumin/Globulin Ratio Crossmatch PG Care Time/CCT Total # of Minutes Spent Total Time Spent with Patient: Total time spent is greater than 50% in coordination of care (as documented) at patient's floor/unit and/or counseling patient: Coding Level of Care Code 40850 Inpt Consult Level 4 Diagnoses Acute kidney injury superimposed on chronic kidney disease N17.9; N18.9 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
[2021-09-02] MEDS: metroNIDAZOLE 500 MG/100 ML BAG IV SCH ×3 (01:42→17:54)
[2021-09-02] MEDS: LEVOTHYROXINE SODIUM 88 MCG TABLET PO SCH (06:14)
[2021-09-02 06:34] LABS: Appearance Urine Clear (Clear); Bacteria Urine Automated Negative (Negative); Bilirubin Urine Negative (Negative); Blood Urine Trace (Negative); Color Urine Yellow; Epithelial Cell Urine Auto 0-5 /lpf (0-5); Glucose Urine UA Negative (Negative); Ketones Urine Negative (Negative); Leukocyte Esterase Urine Negative (Negative); Nitrite Urine Negative (Negative); Protein Urine Trace (Negative); RBC Urine Automated 0-4 /hpf (0-4); Specific Gravity Urine 1.008 (1.000-1.030); Urobilinogen Urine Negative (Negative); WBC Urine Automated 0 /hpf (0-5)
[2021-09-02 06:51] LABS: Creatinine Urine Random 19.7 mg/dl; Protein Creatinine Ratio Urine 1.4 (0-0.2); Total Protein Urine Random 28.5 mg/dl (0-11.9)
[2021-09-02 08:03] LABS: Hematocrit (blood only) 32.2 % (34.1-44.9); Hemoglobin 10.6 g/dl (12.0-16.0); Mean Corpuscular Hemoglobin 29.6 pg (25.0-34.0); Mean Corpuscular Hgb Conc 32.9 g/dL (32.0-36.0); Mean Corpuscular Volume 89.9 fL (80.0-100.0); Nucleated RBC # (auto) 0.06 K/uL (0-0); Nucleated RBC % (auto) 1.9 %; RDW Coefficient of Variation 18.7 % (11.5-14.5); RDW Standard Deviation 60.6 fL (36.4-46.3); Red Blood Count 3.58 M/uL (3.93-5.22); White Blood Count 3.11 K/ul (4.8-10.8)
[2021-09-02 08:26] LABS: Albumin Globulin Ratio 0.9 (0.9-2); Albumin Level 2.5 gm/dl (3.4-5.0); Bilirubin,Total 1.3 mg/dl (0.2-1.0); Calcium 8.2 mg/dl (8.5-10.1); Creatinine Clr Calc Pharmacy 17.5 ml/min; Est GFR (African American) 15.7 ml/min; Est GFR (Non-African American) 13.5 ml/min; Globulin 2.7 gm/dl (2.5-4.0); Magnesium 2.1 mg/dl (1.7-2.4); Phosphorus 3.7 mg/dl (2.5-4.9); Total Protein 5.2 gm/dl (6.0-8.3)
[2021-09-02] MEDS: UMECLIDINIUM BROMIDE 62.5MCG/BLISTER 7 PUFFS/INHALER INH SCH (08:30)
[2021-09-02] MEDS: FLUTICASONE/VILANTEROL 200/25MCG 14 PUFFS/INHALER INH SCH (08:30)
[2021-09-02] MEDS: FERROUS SULFATE 325 MG TAB PO SCH (08:31)
[2021-09-02] MEDS: FUROSEMIDE 40 MG/4 ML VIAL IV SCH ×2 (08:31→20:21)
[2021-09-02] MEDS: ROSUVASTATIN CALCIUM 10 MG TAB PO SCH (08:31)
[2021-09-02] MEDS: predniSONE 20 MG TAB PO SCH (08:31)
[2021-09-02] MEDS: PANTOprazole 40 MG in SYRINGE 0 ML IV SCH ×2 (08:32→20:22)
[2021-09-02] MEDS: CYANOCOBALAMIN (B-12) 500 MCG TABLET PO SCH (08:32)
[2021-09-02] MEDS: SERTRALINE HCL 100 MG TABLET PO SCH (08:32)
[2021-09-02] MEDS: CALCIUM 600MG + VIT D 400 IU TAB PO SCH (08:32)
[2021-09-02] MEDS: METOPROLOL SUCC 25MG EXT REL TAB PO SCH ×2 (08:32→20:22)
[2021-09-02] MEDS: ASPIRIN 81 MG ECTAB PO SCH (08:32)
[2021-09-02 08:35] LABS: Basophils # (auto) 0.01 K/uL (0-0.2); Basophils % (auto) 0.3 %; Eosinophils # (auto) 0.01 K/uL (0-0.50); Eosinophils % (auto) 0.3 %; Immature Granulocytes # (auto) 0.07 K/uL (0.00-0.02); Immature Granulocytes % (auto) 2.3 %; Lymphocytes # (auto) 0.82 K/uL (1.2-3.4); Lymphocytes % (auto) 26.4 %; Mean Platelet Volume 12.5 fL (9.4-12.3); Monocytes # (auto) 0.17 K/uL (0.24-0.82); Monocytes % (auto) 5.5 %; Neutrophils # (auto) 2.03 K/uL (1.4-6.5); Neutrophils % (auto) 65.2 %; Platelet Count 60 K/uL (130-400); Platelet Estimate Decreased (Normal); Polychromasia 1+; Tear Drop Cells 1+
[2021-09-02] MEDS: INSULIN ASPART PER UNIT SC SCH ×4 (08:48→20:30)
[2021-09-02] MEDS: LANTUS PER UNIT CHARGE SQ SCH ×2 (08:55→20:31)
[2021-09-02] MEDS: metOLazone 5 MG TABLET PO SCH (09:32)
--- NOTE | 2021-09-02 10:46 | Nephrology Progress Note ---
Date of Service September 02, 2021 Assessment & Plan (1) Acute kidney injury superimposed on chronic kidney disease: Plan: Clinically consistent with acute CRS. Non-oliguric. Electrolytes acceptable. No emergent indication for dialysis. Decreased EAV in the setting of aggressive diuresis. Document strict I/O's. Repeat metabolic profile tomorrow AM. 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 Hold oral KCl and spironolactone. Renal diet. Medications currently appropriately dosed for kidney dysfunction. Close follow up with Dr. Calixto will be essential post discharge. Urine microscopy remains acellular. (3) Hepatic cirrhosis: Plan: MELD ~20. Goals of care discussed. I would not advise PD. Focus on IHD, if needed. (4) Anemia: Plan: Management per heme. (5) Acute diastolic (congestive) heart failure: Plan: Continue furosemide 80 mg IV BID. Consider transition to PO as volume status improving. Admission and Anticipated Discharge Date Admission Date: August 28, 2021 Subjective No acute events overnight. Feeling tired this AM. Nose bleed. Mouth feels dry and Nat reports feeling thirsty. She is breathing more comfortably. Appetite is good. Review of Systems Review of Systems: All systems reviewed & are unremarkable except as noted in HPI & below Physical Exam Constitutional: well developed and + morbidly obese; no acute distress Eyes: + anicteric sclerae; no corneal abnormality ENMT: Mouth: no oral mucosal abnormality and oral mucous membranes not dry Neck: normal visual inspection and trachea midline Respiratory: normal respiratory effort and + tachypneic Auscultation: + diminished lung sounds and + rales Cardiovascular: Rate/Rhythm: regular rate Heart Sounds: normal S1 and normal S2 Extremities: + edema Musculoskeletal: Extremities: no cyanosis and no clubbing Skin: normal turgor; no lesions Neurologic: Motor/Sensory: no tremor and no asterixis Psychiatric: Orientation: alert and oriented x 3 Results & Data ([facility]) Vital Signs (Past 12 Hours) Vital Signs Temp Pulse Pulse Resp BP Pulse Ox O2 Del Method 09/02/21 07:42 82 09/02/21 06:43 36.7 C 90 16 113/71 95 CPAP 09/02/21 03:00 97 H 16 69 L 09/02/21 03:00 36.6 C 83 20 105/63 99 CPAP 09/02/21 00:31 74 09/01/21 22:59 Nasal Cannula 09/01/21 22:55 36.5 C 76 18 144/84 H 96 CPAP O2 Flow Rate 09/02/21 07:42 09/02/21 06:43 09/02/21 03:00 2 09/02/21 03:00 09/02/21 00:31 09/01/21 22:59 2 09/01/21 22:55 Laboratory Results Laboratory Results - last 24 hr 09/01/21 09/01/21 09/01/21 11:23 14:15 16:19 WBC RBC Hgb Hct MCV MCH MCHC RDW Std Deviation RDW Coeff of Gomez Plt Count MPV Immature Gran % (Auto) Neut % (Auto) Lymph % (Auto) [place] % (Auto) Eos % (Auto) Baso % (Auto) Neut # (Auto) Lymph # (Auto) [place] # (Auto) Eos # (Auto) Baso # (Auto) Immature Gran # (Auto) Absolute Nucleated RBC Nucleated RBC % (auto) Platelet Estimate Polychromasia Tear Drop Cells ABG pH 7.51 H* ABG pCO2 31 L ABG pO2 46 L ABG HCO3 25 H ABG O2 Saturation 81.1 L ABG Base Excess 2.3 H Tenzin Test Pos Oxygen Given 2L Sodium Potassium Chloride Carbon Dioxide Anion Gap BUN Creatinine Est Cr Clr Drug Dosing Est GFR ( Amer) Est GFR (Non-Af Amer) POC Glucose 167 H 269 H Fasting Glucose Calcium Phosphorus Magnesium Total Bilirubin AST ALT Alkaline Phosphatase Total Protein Albumin Globulin Albumin/Globulin Ratio Procalcitonin Urine Color Urine Appearance Urine pH Ur Specific [place] Urine Protein Urine Glucose (UA) Urine Ketones Urine Blood Urine Nitrite Urine Bilirubin Urine Urobilinogen Ur Leukocyte Esterase Urine WBC (Auto) Urine RBC (Auto) U Hyaline Cast (Auto) U Epithel Cells (Auto) Urine Bacteria (Auto) Ur Random Creatinine U Random Total Protein Protein/Creatinin Ratio 09/01/21 09/02/21 09/02/21 20:08 05:10 05:10 WBC RBC Hgb Hct MCV MCH MCHC RDW Std Deviation RDW Coeff of Gomez Plt Count MPV Immature Gran % (Auto) Neut % (Auto) Lymph % (Auto) [place] % (Auto) Eos % (Auto) Baso % (Auto) Neut # (Auto) Lymph # (Auto) [place] # (Auto) Eos # (Auto) Baso # (Auto) Immature Gran # (Auto) Absolute Nucleated RBC Nucleated RBC % (auto) Platelet Estimate Polychromasia Tear Drop Cells ABG pH ABG pCO2 ABG pO2 ABG HCO3 ABG O2 Saturation ABG Base Excess [place] Test Oxygen Given Sodium Potassium Chloride Carbon Dioxide Anion Gap BUN Creatinine Est Cr Clr Drug Dosing Est GFR ( Amer) Est GFR (Non-Af Amer) POC Glucose 269 H Fasting Glucose Calcium Phosphorus Magnesium Total Bilirubin AST ALT Alkaline Phosphatase Total Protein Albumin Globulin Albumin/Globulin Ratio Procalcitonin Urine Color Yellow Urine Appearance Clear Urine pH 5.0 Ur Specific [place] 1.008 Urine Protein Trace H Urine Glucose (UA) Negative Urine Ketones Negative Urine Blood Trace H Urine Nitrite Negative Urine Bilirubin Negative Urine Urobilinogen Negative Ur Leukocyte Esterase Negative Urine WBC (Auto) 0 Urine RBC (Auto) 0-4 U Hyaline Cast (Auto) 1-5 U Epithel Cells (Auto) 0-5 Urine Bacteria (Auto) Negative Ur Random Creatinine 19.7 U Random Total Protein 28.5 H Protein/Creatinin Ratio 1.4 H 09/02/21 09/02/21 09/02/21 07:15 07:15 07:15 WBC 3.11 L RBC 3.58 L Hgb 10.6 L Hct 32.2 L MCV 89.9 MCH 29.6 MCHC 32.9 RDW Std Deviation 60.6 H RDW Coeff of Gomez 18.7 H Plt Count 60 L MPV 12.5 H Immature Gran % (Auto) 2.3 Neut % (Auto) 65.2 Lymph % (Auto) 26.4 [place] % (Auto) 5.5 Eos % (Auto) 0.3 Baso % (Auto) 0.3 Neut # (Auto) 2.03 Lymph # (Auto) 0.82 L [place] # (Auto) 0.17 L Eos # (Auto) 0.01 Baso # (Auto) 0.01 Immature Gran # (Auto) 0.07 H Absolute Nucleated RBC 0.06 H Nucleated RBC % (auto) 1.9 Platelet Estimate Decreased L Polychromasia 1+ Tear Drop Cells 1+ ABG pH ABG pCO2 ABG pO2 ABG HCO3 ABG O2 Saturation ABG Base Excess [place] Test Oxygen Given Sodium 132 L Potassium 4.0 Chloride 94 L Carbon Dioxide 28 Anion Gap 10 BUN 60 H Creatinine 3.29 H Est Cr Clr Drug Dosing 17.5 Est GFR ( Amer) 15.7 Est GFR (Non-Af Amer) 13.5 POC Glucose Fasting Glucose 155 H Calcium 8.2 L Phosphorus 3.7 Magnesium 2.1 Total Bilirubin 1.3 H AST 67 H ALT 148 H Alkaline Phosphatase 156 H Total Protein 5.2 L Albumin 2.5 L Globulin 2.7 Albumin/Globulin Ratio 0.9 Procalcitonin 2.05 H Urine Color Urine Appearance Urine pH Ur Specific [place] Urine Protein Urine Glucose (UA) Urine Ketones Urine Blood Urine Nitrite Urine Bilirubin Urine Urobilinogen Ur Leukocyte Esterase Urine WBC (Auto) Urine RBC (Auto) U Hyaline Cast (Auto) U Epithel Cells (Auto) Urine Bacteria (Auto) Ur Random Creatinine U Random Total Protein Protein/Creatinin Ratio 09/02/21 07:18 WBC RBC Hgb Hct MCV MCH MCHC RDW Std Deviation RDW Coeff of Gomez Plt Count MPV Immature Gran % (Auto) Neut % (Auto) Lymph % (Auto) [place] % (Auto) Eos % (Auto) Baso % (Auto) Neut # (Auto) Lymph # (Auto) [place] # (Auto) Eos # (Auto) Baso # (Auto) Immature Gran # (Auto) Absolute Nucleated RBC Nucleated RBC % (auto) Platelet Estimate Polychromasia Tear Drop Cells ABG pH ABG pCO2 ABG pO2 ABG HCO3 ABG O2 Saturation ABG Base Excess [place] Test Oxygen Given Sodium Potassium Chloride Carbon Dioxide Anion Gap BUN Creatinine Est Cr Clr Drug Dosing Est GFR ( Amer) Est GFR (Non-Af Amer) POC Glucose 154 H Fasting Glucose Calcium Phosphorus Magnesium Total Bilirubin AST ALT Alkaline Phosphatase Total Protein Albumin Globulin Albumin/Globulin Ratio Procalcitonin Urine Color Urine Appearance Urine pH Ur Specific [place] Urine Protein Urine Glucose (UA) Urine Ketones Urine Blood Urine Nitrite Urine Bilirubin Urine Urobilinogen Ur Leukocyte Esterase Urine WBC (Auto) Urine RBC (Auto) U Hyaline Cast (Auto) U Epithel Cells (Auto) Urine Bacteria (Auto) Ur Random Creatinine U Random Total Protein Protein/Creatinin Ratio PG Care Time/CCT Total # of Minutes Spent Total Time Spent with Patient: Total time spent is greater than 50% in coordination of care (as documented) at patient's floor/unit and/or counseling patient: Coding Level of Care Code 20817 Subseq Hosp Care Lvl 3 Diagnoses Acute kidney injury superimposed on chronic kidney disease N17.9; N18.9 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
[2021-09-02] MEDS: cefTRIAXone SODIUM 2,000 MG in DEXTROSE 5% 50 ML IV SCH (12:34)
--- NOTE | 2021-09-02 17:05 | Hospitalist Progress Note ---
Date of Service September 02, 2021 Assessment & Plan (1) Hypoxia: Plan: Acute hypoxic respiratory failure secondary to acute on chronic diastolic heart failure; likely has renal salt and water retention Continue aggressive diuresisbetter; continue IV Lasix and metolazone; noted holding spironolactonenephrology following, will defer (2) Acute on chronic diastolic (congestive) heart failure: Plan: Continue diuresis as above; cardiology following (3) Elevated troponin: Plan: Likely type II UT, demand ischemia; continue metoprolol, given soft blood pressure I stopped isosorbide for nowlatter not associated with any mortality benefit and no angina;; cautiously resumed aspirin (4) CKD (chronic kidney disease) stage 5, GFR less than 15 ml/min: Plan: Stage V based on current parameters; no urgent need for dialysis, nephrology following (5) Controlled type 2 diabetes mellitus with neurologic complication, with long- term current use of insulin: Plan: endorgan damage including chronic kidney disease stage IV Sugars betternot had hypoglycemia with insulin pump at home and in the hospital; pump probably needs to be adjusted; as noted by personal development educator would reconnect pump at least 24 hours before discharge, reduce basal rate by 50% and loosening CF. (6) Pancytopenia: Plan: Hematology consulted; at present supportive care recommended, Outpatient hematology follow-up (7) GI bleed: Plan: On 08/29 nursing had reported dark stool with surrounding cameron blood; ct IV PPI, GI input appreciated Noted some question of hematuria but UA does not show impressive number of red cells per high-power field (8) Anemia: Plan: Acute decline of uncertain etiology, possible acute blood loss anemia, history of hemolytic anemia (finish 4 doses of Rituxan, currently on steroid taper) but current LDH not impressive; at present supportive transfusion; MAYNOR 1 dose provided; hematology input appreciated ; At present this issue seems to have stabilized; would touch base with hematology with respect to further steroid dosing, according to the patient she was down to 20 mg, hematology attending stated should have been on 40 mg but recommended to keep 20 mg with ongoing GI issues. (9) Paroxysmal atrial fibrillation: Plan: Eliquis on hold given GI bleed (10) Hepatic cirrhosis: Plan: Outpatient follow-up in this regard; not encephalopathic (11) Hypothyroidism: Plan: Last TSH check was in April 2021 and was normally replete we will continue her Synthroid supplementation (12) Obstructive sleep apnea: Plan: Patient is on home sleep apnea with CPAP at 9 (13) Obesity, Class II, BMI 35-39.9: Plan: Lifestyle modification (14) Elevated procalcitonin: Plan: Impressively elevated on second check, better on recheck; no clear localization but given abdominal symptoms and CT scan findings empirically on Rocephin and yesterday Flagyl added (initially was on empiric Rocephin plus azithromycin); SBP in the differential and at some point can consider diagnostic paracentesis but will not change managementalternative is empirically finished treatment (15) Abdominal pain: Plan: CT abdomenno clear acute findings though question of nonspecific colitis; added metronidazole; ischemic colitis in the differential but initial treatment is always conservative Follow-up closely (Chest findings notedon Rocephin plus Flagyl) Plan Hyponatremia notedtighten fluid restriction Admission and Anticipated Discharge Date Admission Date: August 28, 2021 Subjective ;Follow-up of presentation of shortness of breathdoing somewhat better; less lethargic; better diuresis denied abdominal symptoms Physical Exam Physical Exam: Constitutional and general: Looks unwell, looks biologic age, somewhat lethargic Head and face: +puffiness, atraumatic Eyes: No scleral icterus, extraocular movements normal Neck: Supple, no JVD Musculoskeletal: No acute joint swelling, no bony abnormalities Skin/dermatologic/integument: No rash, no purpura Hematologic and lymphatic: pallor ++, no petechia Gastrointestinal/abdomen: distended, nonperitoneal but nonspecific upper abdominal tenderness Neurologic: Cranial nerves intact, nonfocal Psychiatry: Awake, alert, pleasant, communicative Cardiovascular: Heart rhythm regular, no rub, no murmur, no gallop Respiratory: Chest movements equal, no use of accessory muscles, no adventitious sounds Extremities: edema ++, no cyanosis (today, September 02 still quite hypervolemic though might be slightly better) Results & Data Results & Data ([facility]) Vital Signs (Past 12 Hours) Vital Signs Temp Pulse Pulse Resp BP Pulse Ox O2 Del Method 09/02/21 16:48 137/71 09/02/21 16:12 84 09/02/21 15:35 36.8 C 86 18 93/59 L 94 Nasal Cannula 09/02/21 11:29 36.6 C 86 18 118/76 95 Nasal Cannula 09/02/21 10:53 Nasal Cannula 09/02/21 07:42 82 09/02/21 06:43 36.7 C 90 16 113/71 95 CPAP O2 Flow Rate 09/02/21 16:48 09/02/21 16:12 09/02/21 15:35 2 09/02/21 11:29 2 09/02/21 10:53 2 09/02/21 07:42 09/02/21 06:43 Laboratory Results Laboratory Results - last 24 hr 09/01/21 09/02/21 09/02/21 20:08 05:10 05:10 WBC RBC Hgb Hct MCV MCH MCHC RDW Std Deviation RDW Coeff of Gomez Plt Count MPV Immature Gran % (Auto) Neut % (Auto) Lymph % (Auto) [place] % (Auto) Eos % (Auto) Baso % (Auto) Neut # (Auto) Lymph # (Auto) [place] # (Auto) Eos # (Auto) Baso # (Auto) Immature Gran # (Auto) Absolute Nucleated RBC Nucleated RBC % (auto) Platelet Estimate Polychromasia Tear Drop Cells Sodium Potassium Chloride Carbon Dioxide Anion Gap BUN Creatinine Est Cr Clr Drug Dosing Est GFR ( Amer) Est GFR (Non-Af Amer) POC Glucose 269 H Fasting Glucose Calcium Phosphorus Magnesium Total Bilirubin AST ALT Alkaline Phosphatase Total Protein Albumin Globulin Albumin/Globulin Ratio Procalcitonin Urine Color Yellow Urine Appearance Clear Urine pH 5.0 Ur Specific [place] 1.008 Urine Protein Trace H Urine Glucose (UA) Negative Urine Ketones Negative Urine Blood Trace H Urine Nitrite Negative Urine Bilirubin Negative Urine Urobilinogen Negative Ur Leukocyte Esterase Negative Urine WBC (Auto) 0 Urine RBC (Auto) 0-4 U Hyaline Cast (Auto) 1-5 U Epithel Cells (Auto) 0-5 Urine Bacteria (Auto) Negative Ur Random Creatinine 19.7 U Random Total Protein 28.5 H Protein/Creatinin Ratio 1.4 H 09/02/21 09/02/21 09/02/21 07:15 07:15 07:15 WBC 3.11 L RBC 3.58 L Hgb 10.6 L Hct 32.2 L MCV 89.9 MCH 29.6 MCHC 32.9 RDW Std Deviation 60.6 H RDW Coeff of Gomez 18.7 H Plt Count 60 L MPV 12.5 H Immature Gran % (Auto) 2.3 Neut % (Auto) 65.2 Lymph % (Auto) 26.4 [place] % (Auto) 5.5 Eos % (Auto) 0.3 Baso % (Auto) 0.3 Neut # (Auto) 2.03 Lymph # (Auto) 0.82 L [place] # (Auto) 0.17 L Eos # (Auto) 0.01 Baso # (Auto) 0.01 Immature Gran # (Auto) 0.07 H Absolute Nucleated RBC 0.06 H Nucleated RBC % (auto) 1.9 Platelet Estimate Decreased L Polychromasia 1+ Tear Drop Cells 1+ Sodium 132 L Potassium 4.0 Chloride 94 L Carbon Dioxide 28 Anion Gap 10 BUN 60 H Creatinine 3.29 H Est Cr Clr Drug Dosing 17.5 Est GFR ( Amer) 15.7 Est GFR (Non-Af Amer) 13.5 POC Glucose Fasting Glucose 155 H Calcium 8.2 L Phosphorus 3.7 Magnesium 2.1 Total Bilirubin 1.3 H AST 67 H ALT 148 H Alkaline Phosphatase 156 H Total Protein 5.2 L Albumin 2.5 L Globulin 2.7 Albumin/Globulin Ratio 0.9 Procalcitonin 2.05 H Urine Color Urine Appearance Urine pH Ur Specific [place] Urine Protein Urine Glucose (UA) Urine Ketones Urine Blood Urine Nitrite Urine Bilirubin Urine Urobilinogen Ur Leukocyte Esterase Urine WBC (Auto) Urine RBC (Auto) U Hyaline Cast (Auto) U Epithel Cells (Auto) Urine Bacteria (Auto) Ur Random Creatinine U Random Total Protein Protein/Creatinin Ratio 09/02/21 09/02/21 09/02/21 07:18 11:23 16:23 WBC RBC Hgb Hct MCV MCH MCHC RDW Std Deviation RDW Coeff of Gomez Plt Count MPV Immature Gran % (Auto) Neut % (Auto) Lymph % (Auto) [place] % (Auto) Eos % (Auto) Baso % (Auto) Neut # (Auto) Lymph # (Auto) [place] # (Auto) Eos # (Auto) Baso # (Auto) Immature Gran # (Auto) Absolute Nucleated RBC Nucleated RBC % (auto) Platelet Estimate Polychromasia Tear Drop Cells Sodium Potassium Chloride Carbon Dioxide Anion Gap BUN Creatinine Est Cr Clr Drug Dosing Est GFR ( Amer) Est GFR (Non-Af Amer) POC Glucose 154 H 188 H 136 H Fasting Glucose Calcium Phosphorus Magnesium Total Bilirubin AST ALT Alkaline Phosphatase Total Protein Albumin Globulin Albumin/Globulin Ratio Procalcitonin Urine Color Urine Appearance Urine pH Ur Specific [place] Urine Protein Urine Glucose (UA) Urine Ketones Urine Blood Urine Nitrite Urine Bilirubin Urine Urobilinogen Ur Leukocyte Esterase Urine WBC (Auto) Urine RBC (Auto) U Hyaline Cast (Auto) U Epithel Cells (Auto) Urine Bacteria (Auto) Ur Random Creatinine U Random Total Protein Protein/Creatinin Ratio PG Care Time/CCT Total # of Minutes Spent Total Time Spent with Patient: Total time spent is greater than 50% in coordination of care (as documented) at patient's floor/unit and/or counseling patient: Coding Level of Care Code 69481 Subseq Hosp Care Lvl 2 Diagnoses Hypoxia R09.02 Acute on chronic diastolic (congestive) heart failure I50.33 Elevated troponin R77.8 CKD (chronic kidney disease) stage 5, GFR less than 15 ml/min N18.5 Controlled type 2 diabetes mellitus with neurologic complication, with long-term current use of insulin E11.49; Z79.4 Pancytopenia D61.818 GI bleed K92.2 Anemia D64.9 Paroxysmal atrial fibrillation I48.0 Hepatic cirrhosis K74.69 Hepatic cirrhosis type: other cirrhosis Hypothyroidism E03.9 Obstructive sleep apnea G47.33 Obesity, Class II, BMI 35-39.9 E66.9 Elevated procalcitonin R79.89 Abdominal pain R10.9 (1) Hepatic cirrhosis Hepatic cirrhosis type: other cirrhosis Qualified Code(s): K74.69 - Other cirrhosis of liver
[2021-09-02] MEDS: MONTELUKAST SODIUM 10 MG TABLET PO SCH (20:23)
[2021-09-02] MEDS: traZODone HCL 50 MG TAB PO SCH (20:23)
[2021-09-03] MEDS: metroNIDAZOLE 500 MG/100 ML BAG IV SCH ×3 (00:54→17:24)
[2021-09-03] MEDS: LEVOTHYROXINE SODIUM 88 MCG TABLET PO SCH (05:25)
[2021-09-03 05:45] LABS: Basophils # (auto) 0.01 K/uL (0-0.2); Basophils % (auto) 0.3 %; Hematocrit (blood only) 30.5 % (34.1-44.9); Hemoglobin 10.1 g/dl (12.0-16.0); Lymphocytes # (auto) 0.85 K/uL (1.2-3.4); Lymphocytes % (auto) 25.4 %; Mean Corpuscular Hemoglobin 29.2 pg (25.0-34.0); Mean Corpuscular Hgb Conc 33.1 g/dL (32.0-36.0); Mean Corpuscular Volume 88.2 fL (80.0-100.0); Mean Platelet Volume 12.6 fL (9.4-12.3); Monocytes # (auto) 0.16 K/uL (0.24-0.82); Monocytes % (auto) 4.8 %; Neutrophils # (auto) 2.22 K/uL (1.4-6.5); Neutrophils % (auto) 66.5 %; Nucleated RBC # (auto) 0.05 K/uL (0-0); Nucleated RBC % (auto) 1.5 %; Platelet Count 72 K/uL (130-400); RDW Coefficient of Variation 18.7 % (11.5-14.5); RDW Standard Deviation 59.3 fL (36.4-46.3); Red Blood Count 3.46 M/uL (3.93-5.22); White Blood Count 3.34 K/ul (4.8-10.8)
[2021-09-03 06:08] LABS: Albumin Globulin Ratio 0.9 (0.9-2); Albumin Level 2.4 gm/dl (3.4-5.0); Bilirubin,Total 1.1 mg/dl (0.2-1.0); Calcium 8.2 mg/dl (8.5-10.1); Creatinine Clr Calc Pharmacy 16.4 ml/min; Est GFR (African American) 14.7 ml/min; Est GFR (Non-African American) 12.7 ml/min; Globulin 2.6 gm/dl (2.5-4.0); Magnesium 2.1 mg/dl (1.7-2.4); Phosphorus 4.7 mg/dl (2.5-4.9); Potassium 3.6 mmol/L (3.5-5.1)
[2021-09-03] MEDS: INSULIN ASPART PER UNIT SC SCH ×4 (07:57→20:55)
[2021-09-03] MEDS: FERROUS SULFATE 325 MG TAB PO SCH (08:00)
[2021-09-03] MEDS: CYANOCOBALAMIN (B-12) 500 MCG TABLET PO SCH (08:00)
[2021-09-03] MEDS: predniSONE 20 MG TAB PO SCH (08:01)
[2021-09-03] MEDS: ROSUVASTATIN CALCIUM 10 MG TAB PO SCH (08:01)
[2021-09-03] MEDS: METOPROLOL SUCC 25MG EXT REL TAB PO SCH ×2 (08:01→21:05)
[2021-09-03] MEDS: SERTRALINE HCL 100 MG TABLET PO SCH (08:01)
[2021-09-03] MEDS: metOLazone 5 MG TABLET PO SCH (08:01)
[2021-09-03] MEDS: ASPIRIN 81 MG ECTAB PO SCH (08:01)
[2021-09-03] MEDS: PANTOprazole 40 MG in SYRINGE 0 ML IV SCH ×2 (08:02→21:05)
[2021-09-03] MEDS: UMECLIDINIUM BROMIDE 62.5MCG/BLISTER 7 PUFFS/INHALER INH SCH (08:04)
[2021-09-03] MEDS: FLUTICASONE/VILANTEROL 200/25MCG 14 PUFFS/INHALER INH SCH (08:04)
[2021-09-03] MEDS ORDERED: POTASSIUM CHLORIDE CRTAB 20 MEQ TABCR PO STA ×3 (08:04→11:56)
[2021-09-03] MEDS: CALCIUM 600MG + VIT D 400 IU TAB PO SCH (08:06)
[2021-09-03] MEDS: LANTUS PER UNIT CHARGE SQ SCH ×2 (08:13→20:56)
[2021-09-03] MEDS ORDERED: FUROSEMIDE 80 MG TAB PO SCH (09:00)
--- NOTE | 2021-09-03 09:09 | Hospitalist Progress Note ---
Date of Service September 03, 2021 Assessment & Plan (1) Hypoxia: Plan: Acute hypoxic respiratory failure secondary to acute on chronic diastolic heart failure; likely has renal salt and water retention Not on oxygen therapy at home BNP 365 on admit, CXR with cardiomegaly with evidence of CHF, bilateral opacities likely represent pulmonary edema, pleural effusions Home regimen w/ 40mg PO lasix, spironolactone 100mg daily for fluid management Initially placed on IV abx with Ceftriaxone, Azithromycin (completed dose) however more likely acute on chronic CHF. IV lasix increased to 80mg IV BID and added metolazone 5mg (given 09/02, 09/03) and lasix switched to 80mg PO BID --> SWITCHED TO 80MG DAILY AND NO EVENING DOSE TONIGHT -Per discussion with Nephrology, if UOP acceptable/good this evening consider holding evening lasix, however agrees no further metolazone for now. Continue to hold spironolactone. -Fluid restriction -Also on steroids for remote history of autoimmune hemolytic anemia -- currently down to 20mg, discussed with heme/onc would continue another day or two prior to dropping to 10mg daily as also contributing to edema - Reported dark/blood to urine/stool day prior --> GI consulted, to continue Protonix IV BID. Remains on Ceftriaxone/Flagyl for coverage of pulm, but also possible colitis given GI sx days prior and CTap c/w such Document daily weights, I&Os Supplemental O2 to maintain saturations --> currently down to 1L NC. Not on O2 at baseline, may require 2 step prior to d/c. Has not yet been out of bed --> ordered PT/OT consults Monitor labs/electrolyte replacement as needed (2) Acute on chronic diastolic (congestive) heart failure: Plan: Diuresis with lasix 80mg PO BID currently, holding off further metolazone and spironolactone remain on hold per nephrology (3) Elevated troponin: Plan: Likely type II ID, demand ischemia; Chest tightness this am, repeat trop cut in half from prior, 20meq Kcl given as given metolzone, labs stable on repeat and cp resolved Of note, prior isosorbide stopped due to soft BPs, does remain borderline and will continue to hold for now ASA 81mg daily resumed, cautious use (4) CKD (chronic kidney disease) stage 5, GFR less than 15 ml/min: Plan: Stage V based on current parameters; no urgent need for dialysis, nephrology following and likely in her future Also on PPI BID, not on protonix outpatient and suspect contributing UOP accepatble, holding off further metolazone as UE edema and breathing improving but still with significant LE edema (5) Controlled type 2 diabetes mellitus with neurologic complication, with long- term current use of insulin: Plan: endorgan damage including chronic kidney disease stage IV Sugars betternot had hypoglycemia with insulin pump at home and in the hospital; pump probably needs to be adjusted; as noted by in service educator would reconnect pump at least 24 hours before discharge, reduce basal rate by 50% and loosening CF. (6) Pancytopenia: Plan: Hematology consulted; suspected GI bleed causing worsening baseline anemia, in conjunction with her CKD at present supportive care recommended, patient given MAYNOR 1 dose provided 08/30- 08/31. Continue current steroid dose, will reach out when to taper, maybe to 10mg in next 48hours? Outpatient hematology follow-up Plts stable currently and improved compared to prior. baseline pancytopenia but worse during this admit (7) GI bleed: Plan: On 08/29 nursing had reported dark stool with surrounding cameron blood; ct IV PPI, GI input appreciated Noted some question of hematuria but UA does not show impressive number of red cells per high-power field (8) Anemia: Plan: Acute decline of uncertain etiology, possible acute blood loss anemia, history of hemolytic anemia (finish 4 doses of Rituxan, currently on steroid taper) but current LDH not impressive; at present supportive transfusion; MAYNOR 1 dose provided; hematology input appreciated ; At present this issue seems to have stabilized; would touch base with hematology with respect to further steroid dosing, according to the patient she was down to 20 mg, hematology attending stated should have been on 40 mg but recommended to keep 20 mg with ongoing GI issues and will continue on such currently (9) Paroxysmal atrial fibrillation: Plan: Eliquis on hold given GI bleeding -- last dose on 08/28 NSR/sinus arrhythmia on monitor, ?underlying MAT although Ps appear same on EKG (10) Hepatic cirrhosis: Plan: Outpatient follow-up in this regard; not encephalopathic (11) Hypothyroidism: Plan: TSH wnl April 2021, continue usual Synthroid dose (12) Obstructive sleep apnea: Plan: Continue CPAP at 9 (13) Obesity, Class II, BMI 35-39.9: Plan: Lifestyle modification (14) Elevated procalcitonin: Plan: Impressively elevated on second check, better on recheck; no clear localization but given abdominal symptoms and CT scan findings empirically on Rocephin, added flagyl day prior (initially was on empiric Rocephin plus azithromycin); SBP in the differential and at some point can consider diagnostic paracentesis but will not change managementalternative is empirically finished treatment (15) Abdominal pain: Plan: CT abdomenno clear acute findings though question of nonspecific colitis; added metronidazole; ischemic colitis in the differential but initial treatment is always conservative Follow-up closely (Chest findings notedon Rocephin plus Flagyl) Plan continued inpatient stay Admission and Anticipated Discharge Date Admission Date: August 28, 2021 Supervising Physician Co-Signing Physician Notes Attending Attestation - Chart reviewed in detail, care plan d/w VICKY Breaux. I agree w/ the lobato components of her documentation. Tj Mendoza MD Subjective Patient evaluated this morning. Already got AM metolazone but as discussed with Nephro, holding further as well as spironolactone. If good UOP consider holding PM lasix. Patient had episode of chest discomfort this morning with heaviness but no radiation. EKG obtained, no significant changes. Given 20meq KCL, BP checked prior to Nitro and chest pain resolved. Does endorse dizziness but has not yet been out of bed. Repeating labs/electrolyte replacement as needed. On 1L, turgor to UE decreased however still edematous to LE. Bordering on needing HD but not at this current time but she does note understanding. +weakness, fatigue. Has not yet been out of bed. No abdominal pain/nausea/vomiting at this time. Believes her "dry weight" close to 194lb. Currently 211lb but with built in bedscale. Slight prior nose bleed resolved. Not on O2 at home. Review of Systems Review of Systems: All systems reviewed & are unremarkable except as noted in HPI & below Physical Exam Physical Exam: General: WD obese female sitting up in bed, NAD, fatigued appearing HEENT: head normocephalic, mm slightly dry, trachea midline without deviation Resp: no cough, not tachypneic, lung sounds diminished in the bases with end expiratory wheezing, on 2L NC with SpO2 100% CV: RRR, +faint systolic murmur, no gallop, ++2-3+ pitting pedal edema, decreased edema to UE with decreased skin turgor GI: +BS, soft, +distended, +edema, nontender MSK/Neuro: moves all extremities, generalized weakness, follows commands, no facial droop, CN intact grossly Skin: cool, dry Results & Data Results & Data ([facility]) Vital Signs (Past 12 Hours) Vital Signs Temp Pulse Pulse Resp BP Pulse Ox O2 Del Method 09/03/21 08:00 36.7 C 79 16 111/74 100 Nasal Cannula 09/03/21 07:09 78 09/03/21 03:43 36.4 C L 100 H 20 107/74 93 CPAP 09/03/21 02:14 67 16 96 09/02/21 23:00 36.6 C 57 L 20 109/75 99 CPAP 09/02/21 23:29 79 O2 Flow Rate 09/03/21 08:00 1 09/03/21 07:09 09/03/21 03:43 09/03/21 02:14 2 09/02/21 23:00 09/02/21 23:29 Laboratory Results 09/03/21 09/03/21 09/03/21 Range/Units 16:08 11:38 10:05 WBC (4.8-10.8) K/ul RBC (3.93-5.22) M/uL Hgb (12.0-16.0) g/dl Hct (34.1-44.9) % MCV (80.0-100.0) fL MCH (25.0-34.0) pg MCHC (32.0-36.0) g/dL RDW Std Deviation (36.4-46.3) fL RDW Coeff of Gomez (11.5-14.5) % Plt Count (130-400) K/uL MPV (9.4-12.3) fL Immature Gran % (Auto) % Neut % (Auto) % Lymph % (Auto) % [place] % (Auto) % Eos % (Auto) % Baso % (Auto) % Neut # (Auto) (1.4-6.5) K/uL Lymph # (Auto) (1.2-3.4) K/uL [place] # (Auto) (0.24-0.82) K/uL Eos # (Auto) (0-0.50) K/uL Baso # (Auto) (0-0.2) K/uL Immature Gran # (Auto) (0.00-0.02) K/uL Absolute Nucleated RBC (0-0) K/uL Nucleated RBC % (auto) % Sodium 130 L (136-145) mmol/L Potassium 3.6 (3.5-5.1) mmol/L Chloride 91 L (98-107) mmol/L Carbon Dioxide 26 (21-32) mmol/L Anion Gap 13 H (3-11) BUN 68 H (6-23) mg/dl Creatinine 3.64 H (0.6-1.2) mg/dl Est Cr Clr Drug Dosing 15.6 ml/min Est GFR ( Amer) 13.9 ml/min Est GFR (Non-Af Amer) 12.0 ml/min BUN/Creatinine Ratio 18.7 (10-20) Glucose 123 H (70-99(Fasting)) mg/dl POC Glucose 171 H 125 H (70-99) mg/dl Fasting Glucose (70-99) mg/dl Calcium 8.6 (8.5-10.1) mg/dl Phosphorus (2.5-4.9) mg/dl Magnesium (1.7-2.4) mg/dl Total Bilirubin (0.2-1.0) mg/dl AST (13-39) U/L ALT (7-52) U/L Alkaline Phosphatase (34-104) U/L Troponin I High Sens 53.2 H* D (0-14) pg/ml Total Protein (6.0-8.3) gm/dl Albumin (3.4-5.0) gm/dl Globulin (2.5-4.0) gm/dl Albumin/Globulin Ratio (0.9-2) 09/03/21 09/03/21 09/03/21 Range/Units 07:38 05:24 05:24 WBC 3.34 L (4.8-10.8) K/ul RBC 3.46 L (3.93-5.22) M/uL Hgb 10.1 L (12.0-16.0) g/dl Hct 30.5 L (34.1-44.9) % MCV 88.2 (80.0-100.0) fL MCH 29.2 (25.0-34.0) pg MCHC 33.1 (32.0-36.0) g/dL RDW Std Deviation 59.3 H (36.4-46.3) fL RDW Coeff of Gomez 18.7 H (11.5-14.5) % Plt Count 72 L (130-400) K/uL MPV 12.6 H (9.4-12.3) fL Immature Gran % (Auto) 3.0 % Neut % (Auto) 66.5 % Lymph % (Auto) 25.4 % [place] % (Auto) 4.8 % Eos % (Auto) 0.0 % Baso % (Auto) 0.3 % Neut # (Auto) 2.22 (1.4-6.5) K/uL Lymph # (Auto) 0.85 L (1.2-3.4) K/uL [place] # (Auto) 0.16 L (0.24-0.82) K/uL Eos # (Auto) 0.00 (0-0.50) K/uL Baso # (Auto) 0.01 (0-0.2) K/uL Immature Gran # (Auto) 0.10 H (0.00-0.02) K/uL Absolute Nucleated RBC 0.05 H (0-0) K/uL Nucleated RBC % (auto) 1.5 % Sodium 131 L (136-145) mmol/L Potassium 3.6 (3.5-5.1) mmol/L Chloride 92 L (98-107) mmol/L Carbon Dioxide 28 (21-32) mmol/L Anion Gap 11 (3-11) BUN 68 H (6-23) mg/dl Creatinine 3.46 H (0.6-1.2) mg/dl Est Cr Clr Drug Dosing 16.4 ml/min Est GFR ( Amer) 14.7 ml/min Est GFR (Non-Af Amer) 12.7 ml/min BUN/Creatinine Ratio (10-20) Glucose (70-99(Fasting)) mg/dl POC Glucose 98 (70-99) mg/dl Fasting Glucose 96 (70-99) mg/dl Calcium 8.2 L (8.5-10.1) mg/dl Phosphorus 4.7 D (2.5-4.9) mg/dl Magnesium 2.1 (1.7-2.4) mg/dl Total Bilirubin 1.1 H (0.2-1.0) mg/dl AST 40 H (13-39) U/L ALT 113 H (7-52) U/L Alkaline Phosphatase 154 H (34-104) U/L Troponin I High Sens (0-14) pg/ml Total Protein 5.0 L (6.0-8.3) gm/dl Albumin 2.4 L (3.4-5.0) gm/dl Globulin 2.6 (2.5-4.0) gm/dl Albumin/Globulin Ratio 0.9 (0.9-2) 09/02/21 Range/Units 20:25 WBC (4.8-10.8) K/ul RBC (3.93-5.22) M/uL Hgb (12.0-16.0) g/dl Hct (34.1-44.9) % MCV (80.0-100.0) fL MCH (25.0-34.0) pg MCHC (32.0-36.0) g/dL RDW Std Deviation (36.4-46.3) fL RDW Coeff of Gomez (11.5-14.5) % Plt Count (130-400) K/uL MPV (9.4-12.3) fL Immature Gran % (Auto) % Neut % (Auto) % Lymph % (Auto) % [place] % (Auto) % Eos % (Auto) % Baso % (Auto) % Neut # (Auto) (1.4-6.5) K/uL Lymph # (Auto) (1.2-3.4) K/uL [place] # (Auto) (0.24-0.82) K/uL Eos # (Auto) (0-0.50) K/uL Baso # (Auto) (0-0.2) K/uL Immature Gran # (Auto) (0.00-0.02) K/uL Absolute Nucleated RBC (0-0) K/uL Nucleated RBC % (auto) % Sodium (136-145) mmol/L Potassium (3.5-5.1) mmol/L Chloride (98-107) mmol/L Carbon Dioxide (21-32) mmol/L Anion Gap (3-11) BUN (6-23) mg/dl Creatinine (0.6-1.2) mg/dl Est Cr Clr Drug Dosing ml/min Est GFR ( Amer) ml/min Est GFR (Non-Af Amer) ml/min BUN/Creatinine Ratio (10-20) Glucose (70-99(Fasting)) mg/dl POC Glucose 116 H (70-99) mg/dl Fasting Glucose (70-99) mg/dl Calcium (8.5-10.1) mg/dl Phosphorus (2.5-4.9) mg/dl Magnesium (1.7-2.4) mg/dl Total Bilirubin (0.2-1.0) mg/dl AST (13-39) U/L ALT (7-52) U/L Alkaline Phosphatase (34-104) U/L Troponin I High Sens (0-14) pg/ml Total Protein (6.0-8.3) gm/dl Albumin (3.4-5.0) gm/dl Globulin (2.5-4.0) gm/dl Albumin/Globulin Ratio (0.9-2) PG Care Time/CCT Total # of Minutes Spent Total Time Spent with Patient: Total time spent is greater than 50% in coordination of care (as documented) at patient's floor/unit and/or counseling patient: Coding Level of Care Code 68690 Subseq Hosp Care Lvl 3 Diagnoses Hypoxia R09.02 Acute on chronic diastolic (congestive) heart failure I50.33 Elevated troponin R77.8 CKD (chronic kidney disease) stage 5, GFR less than 15 ml/min N18.5 Controlled type 2 diabetes mellitus with neurologic complication, with long-term current use of insulin E11.49; Z79.4 Pancytopenia D61.818 GI bleed K92.2 Anemia D64.9 Paroxysmal atrial fibrillation I48.0 Hepatic cirrhosis K74.69 Hepatic cirrhosis type: other cirrhosis Hypothyroidism E03.9 Obstructive sleep apnea G47.33 Obesity, Class II, BMI 35-39.9 E66.9 Elevated procalcitonin R79.89 Abdominal pain R10.9 (1) Hepatic cirrhosis Hepatic cirrhosis type: other cirrhosis Qualified Code(s): K74.69 - Other cirrhosis of liver
[2021-09-03] MEDS: cefTRIAXone SODIUM 2,000 MG in DEXTROSE 5% 50 ML IV SCH (09:29)
--- NOTE | 2021-09-03 09:47 | Cardiology Progress Note ---
Date of Service September 03, 2021 Assessment & Plan (1) Congestive heart failure: Plan: -acute on chronic diastolic CHF improving. -converted to oral diuretics. -continue metoprolol succinate. (2) Elevated troponin: Plan: -likely a supply demand mismatch. -coronary ischemia seems unlikely as she has had no angina. (3) CAD (coronary artery disease): Plan: -CABG x3 November 1999. -RCA SAM August 2018. -continue medical management. (4) Paroxysmal atrial fibrillation: Plan: -Horace currently on hold due to her significant anemia and possible GI bleed. -continue metoprolol succinate for rate control. Admission and Anticipated Discharge Date Admission Date: August 28, 2021 Subjective The patient is resting comfortably in bed without complaints of chest pain or dyspnea. She feels her edema is improving. Physical Exam Physical Exam: In general is obese white female lying supine in bed in no acute distress. HEENT exam is negative. Neck is supple with full carotid upstrokes. No carotid bruits. Jugular is pressure is difficult to assess due to obesity. Cardiovascular exam reveals a regular rhythm with distant heart sounds. No obvious murmurs. No S3. Lungs note decreased breath sounds at the bases and rales above. Abdomen is obese without bruits. Extremities reveal 1+ thigh edema and 2 to 3+ pitting edema distal to the knees. Results & Data ([facility]) Vital Signs (Past 12 Hours) Vital Signs Temp Pulse Pulse Resp BP Pulse Ox O2 Del Method 09/03/21 08:00 36.7 C 79 16 111/74 100 Nasal Cannula 09/03/21 07:09 78 09/03/21 03:43 36.4 C L 100 H 20 107/74 93 CPAP 09/03/21 02:14 67 16 96 09/02/21 23:00 36.6 C 57 L 20 109/75 99 CPAP 09/02/21 23:29 79 O2 Flow Rate 09/03/21 08:00 1 09/03/21 07:09 09/03/21 03:43 09/03/21 02:14 2 09/02/21 23:00 09/02/21 23:29 Diagnostic Findings pvc monitor notes sinus rhythm with occasional PACs. PG Care Time/CCT Total # of Minutes Spent Total Time Spent with Patient: Total time spent is greater than 50% in coordination of care (as documented) at patient's floor/unit and/or counseling patient: Coding Level of Care Code 29605 Subseq Hosp Care Lvl 3 Diagnoses Congestive heart failure I50.9 Elevated troponin R77.8 CAD (coronary artery disease) I25.10 Paroxysmal atrial fibrillation I48.0
--- NOTE | 2021-09-03 09:53 | Nephrology Progress Note ---
Date of Service September 03, 2021 Assessment & Plan (1) Acute kidney injury superimposed on chronic kidney disease: Plan: Clinically consistent with acute CRS. Non-oliguric. Electrolytes acceptable. No emergent indication for dialysis. Decreased EAV in the setting of aggressive diuresis. Goal is to maintain net negative fluid balance ~1 to 1.5 L/d. Document strict I/O's. Repeat metabolic profile tomorrow AM. Potential future indications for SALES REPRESENTATIVE EDUCATION COURSES reviewed in detail. Permissive rise in creatinine with diuresis. 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 Renal diet. Medications currently appropriately dosed for kidney dysfunction. Close follow up with Dr. Calixto will be essential post discharge. (3) Hepatic cirrhosis: (4) Anemia: Plan: Management per heme. H/H stable. (5) Acute diastolic (congestive) heart failure: Plan: Continued improvement noted. Furosemide switched from 80 mg IV BID to PO this AM. Metolazone given this AM but I would encourage stopping additional doses. She is diuresing acceptably. May consider holding afternoon dose of furosemide if negative >1 L by this afternoon. Admission and Anticipated Discharge Date Admission Date: August 28, 2021 Subjective No acute events overnight. Nat reported substernal chest pain this morning. She states that she woke up with symptoms. No similar symptoms in the past. Non- radiating. She describes the pain as pressure or heaviness. Symptoms lasted >30 minutes but seemed to resolve spontaneously within 1 hours. 12 lead EKG reviewed - no acute changes. Sinus with PACS. BP acceptable. Oxygenating well on 1 L NC. Nat also reported some dizziness this morning. Symptoms started after AM medications. No similar symptoms in the past. She has not been out of bed. She describes symptoms as lightheadedness. I discussed the patient's history and plan of care with Bessie Breaux PA-C this AM. Review of Systems Review of Systems: All systems reviewed & are unremarkable except as noted in HPI & below Physical Exam Constitutional: well developed and + morbidly obese; no acute distress Eyes: + anicteric sclerae; no corneal abnormality ENMT: Mouth: no oral mucosal abnormality and oral mucous membranes not dry Neck: normal visual inspection and trachea midline Respiratory: normal respiratory effort Auscultation: + diminished lung sounds and + rales Cardiovascular: Rate/Rhythm: + irregularly irregular Heart Sounds: normal S1 and normal S2 Extremities: + edema Musculoskeletal: Extremities: no cyanosis and no clubbing Skin: + turgor decreased; no lesions Neurologic: Motor/Sensory: no tremor and no asterixis Psychiatric: Orientation: alert and oriented x 3 Results & Data ([facility]) Vital Signs (Past 12 Hours) Vital Signs Temp Pulse Pulse Resp BP Pulse Ox O2 Del Method 09/03/21 08:00 36.7 C 79 16 111/74 100 Nasal Cannula 09/03/21 07:09 78 09/03/21 03:43 36.4 C L 100 H 20 107/74 93 CPAP 09/03/21 02:14 67 16 96 09/02/21 23:00 36.6 C 57 L 20 109/75 99 CPAP 09/02/21 23:29 79 O2 Flow Rate 09/03/21 08:00 1 09/03/21 07:09 09/03/21 03:43 09/03/21 02:14 2 09/02/21 23:00 09/02/21 23:29 Laboratory Results Laboratory Results - last 24 hr 09/02/21 09/02/21 09/02/21 11:23 16:23 20:25 WBC RBC Hgb Hct MCV MCH MCHC RDW Std Deviation RDW Coeff of Gomez Plt Count MPV Immature Gran % (Auto) Neut % (Auto) Lymph % (Auto) [place] % (Auto) Eos % (Auto) Baso % (Auto) Neut # (Auto) Lymph # (Auto) [place] # (Auto) Eos # (Auto) Baso # (Auto) Immature Gran # (Auto) Absolute Nucleated RBC Nucleated RBC % (auto) Sodium Potassium Chloride Carbon Dioxide Anion Gap BUN Creatinine Est Cr Clr Drug Dosing Est GFR ( Amer) Est GFR (Non-Af Amer) POC Glucose 188 H 136 H 116 H Fasting Glucose Calcium Phosphorus Magnesium Total Bilirubin AST ALT Alkaline Phosphatase Total Protein Albumin Globulin Albumin/Globulin Ratio 09/03/21 09/03/21 09/03/21 05:24 05:24 07:38 WBC 3.34 L RBC 3.46 L Hgb 10.1 L Hct 30.5 L MCV 88.2 MCH 29.2 MCHC 33.1 RDW Std Deviation 59.3 H RDW Coeff of Gomez 18.7 H Plt Count 72 L MPV 12.6 H Immature Gran % (Auto) 3.0 Neut % (Auto) 66.5 Lymph % (Auto) 25.4 [place] % (Auto) 4.8 Eos % (Auto) 0.0 Baso % (Auto) 0.3 Neut # (Auto) 2.22 Lymph # (Auto) 0.85 L [place] # (Auto) 0.16 L Eos # (Auto) 0.00 Baso # (Auto) 0.01 Immature Gran # (Auto) 0.10 H Absolute Nucleated RBC 0.05 H Nucleated RBC % (auto) 1.5 Sodium 131 L Potassium 3.6 Chloride 92 L Carbon Dioxide 28 Anion Gap 11 BUN 68 H Creatinine 3.46 H Est Cr Clr Drug Dosing 16.4 Est GFR ( Amer) 14.7 Est GFR (Non-Af Amer) 12.7 POC Glucose 98 Fasting Glucose 96 Calcium 8.2 L Phosphorus 4.7 D Magnesium 2.1 Total Bilirubin 1.1 H AST 40 H ALT 113 H Alkaline Phosphatase 154 H Total Protein 5.0 L Albumin 2.4 L Globulin 2.6 Albumin/Globulin Ratio 0.9 PG Care Time/CCT Total # of Minutes Spent Total Time Spent with Patient: Total time spent is greater than 50% in coordination of care (as documented) at patient's floor/unit and/or counseling patient: Coding Level of Care Code 65969 Subseq Hosp Care Lvl 3 Diagnoses Acute kidney injury superimposed on chronic kidney disease N17.9; N18.9 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
[2021-09-03] MEDS: FAMOTIDINE 20 MG in SYRINGE 3 ML IV SCH (10:30)
[2021-09-03 11:16] LABS: BUN Creatinine Ratio 18.7 (10-20); Calcium 8.6 mg/dl (8.5-10.1); Creatinine Clr Calc Pharmacy 15.6 ml/min; Est GFR (African American) 13.9 ml/min; Potassium 3.6 mmol/L (3.5-5.1)
[2021-09-03 11:17] LABS: Troponin I High Sensitivity 53.2 pg/ml (0-14)
--- NOTE | 2021-09-03 14:00 | Pharmacy Report ---
Pharmacy Glycemic Short Note 2 - Date of Service September 03, 2021 - Glycemic Short BSG Results (Last 24 hours): 09/02/21 09/02/21 09/03/21 16:23 20:25 05:24 Glucose POC Glucose 136 H 116 H Fasting Glucose 96 09/03/21 09/03/21 09/03/21 07:38 10:05 11:38 Glucose 123 H POC Glucose 98 125 H Fasting Glucose OUTPATIENT ANTIDIABETIC REGIMEN: * Novolog insulin pump (omnipod) -- up to 230 units per day * HbA1c: unreliable in the setting of anemia with regular iron infusions ASSESSMENT: 09/03/21: * BSGs have been relatively stable. Pt remains on Prednisone 20mg PO daily. * No changes required at this time. 08/30 * Insulin pump trial did not go well overnight, multiple low BSGs observed overnight (34 mg/dL, 22 mg/dL, etc.) despite basal rate reduction * RN removed insulin pump after sustained lows observed * Will manage with SC basal/bolus while inpatient * Patient will likely require basal reduction in insulin pump - CDE consulted * Waited until upward BSG trend noted at lunchtime to give basal * Will leave sign out with second-shift pharmacist for possible tightening of Novolog 08/29 * Patient received 19 units of insulin yesterday once insulin pump removed * IV hydrocortisone changed to prednisone 20 mg PO daily only * Originally planned on continuing with SC basal/bolus insulin, but patient's brought insulin pump in from home and it was connected without informing staff. RN discovered insulin pump was connected as he was going to give lunchtime SC insulin doses. Discussed with hospitalist and will continue insulin pump for now. * In the past, patient has used temporary basal rates when needed - will continue to assess appropriateness of pump while inpatient 08/28 * Ms Kaur is a Type 2 diabetic female admitted with respiratory failure/pna. * She is normally managed on a Novolog pump. Pt was significantly hypoglycemic in the ED, so insulin pump was removed. Pt will be managed with SQ basal/bolus insulin during admission until it is appropriate to resume her pump. * Ms Kaur is ordered IV hydrocortisone and PO prednisone, which are likely to contribute to steroid-induced hyperglycemia. * Given patient's persistent hypoglycemia today, will initiate Novolog with conservative parameters and dose basal insulin this evening based on her BSG. * Will continue to follow and adjust as needed. PLAN FOR INPATIENT GLYCEMIC CONTROL: * Basal insulin * Lantus 35 units SQ qAM * Lantus scale HS (10-15 units) - see EHR for details * Bolus insulin * Goal BSG Range: Low 110 mg/dL, High 140 mg/dL * Correction Factor: 12 mg/dL/unit * Carbohydrate ratio = 4 g/unit
--- NOTE | 2021-09-03 14:52 | Electrocardiogram Report ---
Test Reason : Blood Pressure : / mmHG Vent. Rate : 076 BPM Atrial Rate : 076 BPM P-R Int : 124 ms QRS Dur : 076 ms QT Int : 388 ms P-R-T Axes : 023 026 159 degrees QTc Int : 436 ms Sinus rhythm with Premature atrial complexes Nonspecific ST and T wave abnormality Abnormal ECG When compared with ECG of 29-AUG-2021 05:52, Nonspecific T wave abnormality has replaced inverted T waves in Lateral leads Confirmed by Lukas Zaragoza ([id number]) on 09/03/2021 2:51:58 PM Referred By: REFERRED SELF Confirmed By:Lukas Zaragoza
[2021-09-03] MEDS: MONTELUKAST SODIUM 10 MG TABLET PO SCH (21:05)
[2021-09-03] MEDS: traZODone HCL 50 MG TAB PO SCH (21:05)
[2021-09-04] MEDS: metroNIDAZOLE 500 MG/100 ML BAG IV SCH ×3 (01:10→18:26)
[2021-09-04] MEDS: LEVOTHYROXINE SODIUM 88 MCG TABLET PO SCH (05:51)
[2021-09-04 06:10] LABS: Basophils # (auto) 0.02 K/uL (0-0.2); Basophils % (auto) 0.4 %; Hematocrit (blood only) 32.5 % (34.1-44.9); Hemoglobin 10.6 g/dl (12.0-16.0); Immature Granulocytes # (auto) 0.19 K/uL (0.00-0.02); Immature Granulocytes % (auto) 3.8 %; Lymphocytes # (auto) 0.91 K/uL (1.2-3.4); Mean Corpuscular Hemoglobin 28.6 pg (25.0-34.0); Mean Corpuscular Hgb Conc 32.6 g/dL (32.0-36.0); Mean Corpuscular Volume 87.6 fL (80.0-100.0); Mean Platelet Volume 11.9 fL (9.4-12.3); Monocytes # (auto) 0.28 K/uL (0.24-0.82); Monocytes % (auto) 5.5 %; Neutrophils # (auto) 3.65 K/uL (1.4-6.5); Neutrophils % (auto) 72.3 %; Nucleated RBC # (auto) 0.09 K/uL (0-0); Nucleated RBC % (auto) 1.8 %; Platelet Count 87 K/uL (130-400); RDW Coefficient of Variation 18.1 % (11.5-14.5); RDW Standard Deviation 57.2 fL (36.4-46.3); Red Blood Count 3.71 M/uL (3.93-5.22); White Blood Count 5.05 K/ul (4.8-10.8)
[2021-09-04 06:55] LABS: Albumin Level 2.5 gm/dl (3.4-5.0); Bilirubin,Total 1.2 mg/dl (0.2-1.0); Calcium 8.1 mg/dl (8.5-10.1); Creatinine Clr Calc Pharmacy 15.3 ml/min; Est GFR (African American) 13.6 ml/min; Est GFR (Non-African American) 11.7 ml/min; Globulin 2.4 gm/dl (2.5-4.0); Magnesium 2.1 mg/dl (1.7-2.4); Phosphorus 4.4 mg/dl (2.5-4.9); Potassium 3.4 mmol/L (3.5-5.1); Total Protein 4.9 gm/dl (6.0-8.3)
[2021-09-04] MEDS: DEXTROSE 50% 50 ML SYRINGE IV PRN (07:05)
[2021-09-04] MEDS ORDERED: POTASSIUM CHLORIDE CRTAB 20 MEQ TABCR PO STA ×2 (07:59→18:25)
--- NOTE | 2021-09-04 07:59 | Hospitalist Progress Note ---
Date of Service September 04, 2021 Assessment & Plan (1) Hypoxia: Plan: Acute hypoxic respiratory failure secondary to acute on chronic diastolic heart failure; likely has renal salt and water retention Not on oxygen therapy at home BNP 365 on admit, CXR with cardiomegaly with evidence of CHF, bilateral opacities likely represent pulmonary edema, pleural effusions Home regimen w/ 40mg PO lasix, spironolactone 100mg daily for fluid management Initially placed on IV abx with Ceftriaxone, Azithromycin (completed dose) however more likely acute on chronic CHF. * IV lasix increased to 80mg IV BID and added metolazone 5mg (given 09/02, 09/03) and lasix switched to 80mg PO BID --> SWITCHED TO 80MG DAILY evening 09/03 given good UOP and over diuresis * Continue fluid restriction * Continue lasix 80mg po daily and continue to hold spironolactone for now. CXR still with congestion. Monitoring UOP and if not -1L by afternoon consider additional dose lasix * UOP -1.5L thus far, cumulative -6L since admission Remains on Ceftriaxone/Flagyl for coverage of pulm (already completed azithro course while inpatient, Flagyl possibly causing abd discomforts), but also possible colitis given GI sx days prior and CTap c/w such Also on steroids for remote history of autoimmune hemolytic anemia -- currently down to 20mg, discussed with heme/onc would continue another day or two prior to dropping to 10mg daily as also contributing to edema - Reported dark/blood to urine/stool day prior --> GI consulted, to continue Protonix IV BID. Continue to monitor daily weights/I&O Titrate O2 to maintain saturations PT/OT consults requested as has not yet been out of bed. SCDs ordered while off eliquis but hasn't really tolerated much. Labs/electrolyte replacement as needed. Given extra K this AM and plan additional 20meq this afternoon to keep K closer to 4 (2) Acute on chronic diastolic (congestive) heart failure: Plan: Diuresis with lasix 80mg PO daily starting 09/03 (held evening dose 09/03) currently, holding off further metolazone and spironolactone remain on hold per nephrology (3) Elevated troponin: Plan: Likely type II [place], demand ischemia; Chest tightness this am, repeat trop cut in half from prior, resolved Of note prior isosorbide stopped due to soft BP, stable and will resume in event any cardiac related but again repeat trop improved from days prior Cards on consult ASA 81mg resumed cautiously (4) CKD (chronic kidney disease) stage 5, GFR less than 15 ml/min: Plan: Stage V based on current parameters; no urgent need for dialysis, nephrology following and likely in her future Also on PPI BID, not on protonix outpatient and suspect contributing UOP acceptable, holding off further metolazone as UE edema and breathing improving but still with significant LE edema but is improving (5) Controlled type 2 diabetes mellitus with neurologic complication, with long- term current use of insulin: Plan: endorgan damage including chronic kidney disease stage IV Sugars betternot had hypoglycemia with insulin pump at home and in the hospital; pump probably needs to be adjusted; as noted by fisher gill net would reconnect pump at least 24 hours before discharge, reduce basal rate by 50% and loosening CF. 09/04 HYPOGLYCEMIC this morning to 52, protocol initiated and improvement in BSGs following Pharmacy following (6) Pancytopenia: Plan: Hematology consulted; suspected GI bleed causing worsening baseline anemia, in conjunction with her CKD at present supportive care recommended, patient given MAYNOR 1 dose provided 08/30- 08/31. Continue current steroid dose, will reach out when to taper, maybe to 10mg in next 48hours? Outpatient hematology follow-up Plts stable 87 currently and improved compared to prior. baseline pancytopenia but worse during this admit (7) GI bleed: Plan: On 08/29 nursing had reported dark stool with surrounding cameron blood; ct IV PPI, GI input appreciated Noted some question of hematuria but UA does not show impressive number of red cells per high-power field (8) Anemia: Plan: Acute decline of uncertain etiology, possible acute blood loss anemia, history of hemolytic anemia (finish 4 doses of Rituxan, currently on steroid taper) but current LDH not impressive; at present supportive transfusion; MAYNOR 1 dose provided; hematology input appreciated ; At present this issue seems to have stabilized; would touch base with hematology with respect to further steroid dosing, according to the patient she was down to 20 mg, hematology attending stated should have been on 40 mg but recommended to keep 20 mg with ongoing GI issues and will continue on such currently and possibly reach out tomorrow about consideration to decrease to 10mg in next 2 days? (9) Paroxysmal atrial fibrillation: Plan: Eliquis on hold given GI bleeding -- last dose on 08/28 NSR w/ pacs on telemetry (10) Hepatic cirrhosis: Plan: Outpatient follow-up in this regard; not encephalopathic Fatigued/no BM, will check ammonia to ensure not becoming encephalopathic given holding spironolactone days prior but has been on lasix (11) Hypothyroidism: Plan: TSH wnl April 2021, continue usual Synthroid dose (12) Obstructive sleep apnea: Plan: Continue CPAP at 9 (13) Obesity, Class II, BMI 35-39.9: Plan: Lifestyle modification (14) Elevated procalcitonin: Plan: Impressively elevated on second check, better on recheck; no clear localization but given abdominal symptoms and CT scan findings empirically on Rocephin, added flagyl day prior (initially was on empiric Rocephin plus azithromycin); SBP in the differential and at some point can consider diagnostic paracentesis but will not change managementalternative is empirically finished treatment (15) Abdominal pain: Plan: CT abdomenno clear acute findings though question of nonspecific colitis; added metronidazole; ischemic colitis in the differential but initial treatment is always conservative Follow-up closely (Chest findings notedon Rocephin plus Flagyl) Plan continued inpatient stay Admission and Anticipated Discharge Date Admission Date: August 28, 2021 Supervising Physician Co-Signing Physician Notes VICKY Supervision Note: I did not personally see or examine the patient today, but I verified all lobato points of VICKY Breaux's assessment and plan with the following exceptions/additions: None Subjective Patient evaluated this morning. Had episode of hypoglycemia this morning. Having a little bit of nausea as well as generalized abdominal pains. No vomiting. Last BM on the ~24th. +BS but not eating too much. Breathing stable but was off O2 this morning and dropped to 83% but currently 93% on 2L. LE edema to feet improving and discussed Cr about the same but will continue monitoring/diuretics and antibiotics. Also had similar discomforts couple days ago when CTAP performed and since been on Flagyl which can contribute to discomfort and was relieved with maalox the other day. Also of note, isosorbide held the other day due to softer BPs but will resume in case related. Review of Systems Review of Systems: All systems reviewed & are unremarkable except as noted in HPI & below Physical Exam Physical Exam: General: WD obese female laying in bed upon entry, NAD initially but became uncomfortable complaining of abdominal cramping/discomfort. HEENT: head normocephalic, mm slightly dry, trachea midline without deviation Resp: no cough, not tachypneic, lung sounds diminished in the bases with associated crackles, end expiratory wheezing, on 2L NC CV: RRR, +faint systolic murmur, no gallop, slightly decreased pitting pedal edema but still about 2+ to henriquez/thigh GI: +BS, soft, +distended, +edema (decreased), nontender MSK/Neuro: moves all extremities, generalized weakness, follows commands, no facial droop, CN intact grossly Skin: cool, dry Results & Data Results & Data ([facility]) Vital Signs (Past 12 Hours) Vital Signs Temp Pulse Pulse Resp BP Pulse Ox O2 Del Method 09/04/21 07:03 36.8 C 65 18 115/69 93 Room Air 09/04/21 06:54 76 09/04/21 03:03 36.5 C 67 16 98/62 L 92 BiPAP 09/04/21 02:12 76 19 95 09/04/21 02:11 77 09/03/21 23:06 37.0 C 65 24 104/72 95 BiPAP 09/03/21 20:30 Nasal Cannula 09/03/21 22:14 75 22 93 O2 Flow Rate 09/04/21 07:03 09/04/21 06:54 09/04/21 03:03 09/04/21 02:12 2 09/04/21 02:11 09/03/21 23:06 09/03/21 20:30 2 09/03/21 22:14 1 Laboratory Results 09/04/21 09/04/21 09/04/21 Range/Units 07:19 07:01 06:59 WBC (4.8-10.8) K/ul RBC (3.93-5.22) M/uL Hgb (12.0-16.0) g/dl Hct (34.1-44.9) % MCV (80.0-100.0) fL MCH (25.0-34.0) pg MCHC (32.0-36.0) g/dL RDW Std Deviation (36.4-46.3) fL RDW Coeff of Gomez (11.5-14.5) % Plt Count (130-400) K/uL MPV (9.4-12.3) fL Immature Gran % (Auto) % Neut % (Auto) % Lymph % (Auto) % Lake % (Auto) % Eos % (Auto) % Baso % (Auto) % Neut # (Auto) (1.4-6.5) K/uL Lymph # (Auto) (1.2-3.4) K/uL [place] # (Auto) (0.24-0.82) K/uL Eos # (Auto) (0-0.50) K/uL Baso # (Auto) (0-0.2) K/uL Immature Gran # (Auto) (0.00-0.02) K/uL Absolute Nucleated RBC (0-0) K/uL Nucleated RBC % (auto) % Sodium (136-145) mmol/L Potassium (3.5-5.1) mmol/L Chloride (98-107) mmol/L Carbon Dioxide (21-32) mmol/L Anion Gap (3-11) BUN (6-23) mg/dl Creatinine (0.6-1.2) mg/dl Est Cr Clr Drug Dosing ml/min Est GFR ( Amer) ml/min Est GFR (Non-Af Amer) ml/min BUN/Creatinine Ratio (10-20) Glucose (70-99(Fasting)) mg/dl POC Glucose 139 H 56 L* 51 L* (70-99) mg/dl Fasting Glucose (70-99) mg/dl Calcium (8.5-10.1) mg/dl Phosphorus (2.5-4.9) mg/dl Magnesium (1.7-2.4) mg/dl Total Bilirubin (0.2-1.0) mg/dl AST (13-39) U/L ALT (7-52) U/L Alkaline Phosphatase (34-104) U/L Troponin I High Sens (0-14) pg/ml Total Protein (6.0-8.3) gm/dl Albumin (3.4-5.0) gm/dl Globulin (2.5-4.0) gm/dl Albumin/Globulin Ratio (0.9-2) 09/04/21 09/04/21 09/03/21 Range/Units 05:44 05:44 20:33 WBC 5.05 (4.8-10.8) K/ul RBC 3.71 L (3.93-5.22) M/uL Hgb 10.6 L (12.0-16.0) g/dl Hct 32.5 L (34.1-44.9) % MCV 87.6 (80.0-100.0) fL MCH 28.6 (25.0-34.0) pg MCHC 32.6 (32.0-36.0) g/dL RDW Std Deviation 57.2 H (36.4-46.3) fL RDW Coeff of Gomez 18.1 H (11.5-14.5) % Plt Count 87 L (130-400) K/uL MPV 11.9 (9.4-12.3) fL Immature Gran % (Auto) 3.8 % Neut % (Auto) 72.3 % Lymph % (Auto) 18.0 % [place] % (Auto) 5.5 % Eos % (Auto) 0.0 % Baso % (Auto) 0.4 % Neut # (Auto) 3.65 (1.4-6.5) K/uL Lymph # (Auto) 0.91 L (1.2-3.4) K/uL [place] # (Auto) 0.28 (0.24-0.82) K/uL Eos # (Auto) 0.00 (0-0.50) K/uL Baso # (Auto) 0.02 (0-0.2) K/uL Immature Gran # (Auto) 0.19 H (0.00-0.02) K/uL Absolute Nucleated RBC 0.09 H (0-0) K/uL Nucleated RBC % (auto) 1.8 % Sodium 133 L (136-145) mmol/L Potassium 3.4 L (3.5-5.1) mmol/L Chloride 94 L (98-107) mmol/L Carbon Dioxide 28 (21-32) mmol/L Anion Gap 11 (3-11) BUN 73 H (6-23) mg/dl Creatinine 3.70 H (0.6-1.2) mg/dl Est Cr Clr Drug Dosing 15.3 ml/min Est GFR ( Amer) 13.6 ml/min Est GFR (Non-Af Amer) 11.7 ml/min BUN/Creatinine Ratio (10-20) Glucose (70-99(Fasting)) mg/dl POC Glucose 176 H (70-99) mg/dl Fasting Glucose 52 L* (70-99) mg/dl Calcium 8.1 L (8.5-10.1) mg/dl Phosphorus 4.4 (2.5-4.9) mg/dl Magnesium 2.1 (1.7-2.4) mg/dl Total Bilirubin 1.2 H (0.2-1.0) mg/dl AST 33 (13-39) U/L ALT 83 H (7-52) U/L Alkaline Phosphatase 147 H (34-104) U/L Troponin I High Sens (0-14) pg/ml Total Protein 4.9 L (6.0-8.3) gm/dl Albumin 2.5 L (3.4-5.0) gm/dl Globulin 2.4 L (2.5-4.0) gm/dl Albumin/Globulin Ratio 1.0 (0.9-2) 09/03/21 09/03/21 09/03/21 Range/Units 16:08 11:38 10:05 WBC (4.8-10.8) K/ul RBC (3.93-5.22) M/uL Hgb (12.0-16.0) g/dl Hct (34.1-44.9) % MCV (80.0-100.0) fL MCH (25.0-34.0) pg MCHC (32.0-36.0) g/dL RDW Std Deviation (36.4-46.3) fL RDW Coeff of Gomez (11.5-14.5) % Plt Count (130-400) K/uL MPV (9.4-12.3) fL Immature Gran % (Auto) % Neut % (Auto) % Lymph % (Auto) % [place] % (Auto) % Eos % (Auto) % Baso % (Auto) % Neut # (Auto) (1.4-6.5) K/uL Lymph # (Auto) (1.2-3.4) K/uL [place] # (Auto) (0.24-0.82) K/uL Eos # (Auto) (0-0.50) K/uL Baso # (Auto) (0-0.2) K/uL Immature Gran # (Auto) (0.00-0.02) K/uL Absolute Nucleated RBC (0-0) K/uL Nucleated RBC % (auto) % Sodium 130 L (136-145) mmol/L Potassium 3.6 (3.5-5.1) mmol/L Chloride 91 L (98-107) mmol/L Carbon Dioxide 26 (21-32) mmol/L Anion Gap 13 H (3-11) BUN 68 H (6-23) mg/dl Creatinine 3.64 H (0.6-1.2) mg/dl Est Cr Clr Drug Dosing 15.6 ml/min Est GFR ( Amer) 13.9 ml/min Est GFR (Non-Af Amer) 12.0 ml/min BUN/Creatinine Ratio 18.7 (10-20) Glucose 123 H (70-99(Fasting)) mg/dl POC Glucose 171 H 125 H (70-99) mg/dl Fasting Glucose (70-99) mg/dl Calcium 8.6 (8.5-10.1) mg/dl Phosphorus (2.5-4.9) mg/dl Magnesium (1.7-2.4) mg/dl Total Bilirubin (0.2-1.0) mg/dl AST (13-39) U/L ALT (7-52) U/L Alkaline Phosphatase (34-104) U/L Troponin I High Sens 53.2 H* D (0-14) pg/ml Total Protein (6.0-8.3) gm/dl Albumin (3.4-5.0) gm/dl Globulin (2.5-4.0) gm/dl Albumin/Globulin Ratio (0.9-2) PG Care Time/CCT Total # of Minutes Spent Total Time Spent with Patient: Total time spent is greater than 50% in coordination of care (as documented) at patient's floor/unit and/or counseling patient: Coding Level of Care Code 67315 Subseq Hosp Care Lvl 3 Diagnoses Hypoxia R09.02 Acute on chronic diastolic (congestive) heart failure I50.33 Elevated troponin R77.8 CKD (chronic kidney disease) stage 5, GFR less than 15 ml/min N18.5 Controlled type 2 diabetes mellitus with neurologic complication, with long-term current use of insulin E11.49; Z79.4 Pancytopenia D61.818 GI bleed K92.2 Anemia D64.9 Paroxysmal atrial fibrillation I48.0 Hepatic cirrhosis K74.69 Hepatic cirrhosis type: other cirrhosis Hypothyroidism E03.9 Obstructive sleep apnea G47.33 Obesity, Class II, BMI 35-39.9 E66.9 Elevated procalcitonin R79.89 Abdominal pain R10.9 (1) Hepatic cirrhosis Hepatic cirrhosis type: other cirrhosis Qualified Code(s): K74.69 - Other cirrhosis of liver
--- NOTE | 2021-09-04 08:56 | XRay Report ---
XR chest 2V PA/lateral HISTORY: 71 years-old Female f/u CHF acute shortness of breath with weakness COMPARISON: Chest radiograph 08/31/2021 TECHNIQUE: AP and lateral views of the chest FINDINGS: The cardiac silhouette is enlarged. Prior median sternotomy. A few wires are again noted to be fractu red. Pulmonary vascular congestion with reticular coarsening has not significantly changed. Trace ple ural effusions with mild bibasilar densities. Degenerative changes of the shoulders and spine. IMPRESSION: 1. Cardiomegaly with pulmonary edema. 2. Trace pleural effusions with mild bibasilar opacities. ACT 112: Negative or not required by law. The above report was generated using voice recognition software. It may contain grammatical, syntax o r spelling errors. Electronically signed by: Yuniel Parra M.D. 09/04/2021 8:55 AM
[2021-09-04] MEDS ORDERED: LANTUS PER UNIT CHARGE SQ SCH ×2 (09:00)
[2021-09-04] MEDS: CYANOCOBALAMIN (B-12) 500 MCG TABLET PO SCH (09:12)
[2021-09-04] MEDS: PANTOprazole 40 MG in SYRINGE 0 ML IV SCH ×2 (09:12→20:09)
[2021-09-04] MEDS: predniSONE 20 MG TAB PO SCH (09:12)
[2021-09-04] MEDS: FUROSEMIDE 80 MG TAB PO SCH (09:13)
[2021-09-04] MEDS: FERROUS SULFATE 325 MG TAB PO SCH (09:13)
[2021-09-04] MEDS: SERTRALINE HCL 100 MG TABLET PO SCH (09:13)
[2021-09-04] MEDS: CALCIUM 600MG + VIT D 400 IU TAB PO SCH (09:13)
[2021-09-04] MEDS: ROSUVASTATIN CALCIUM 10 MG TAB PO SCH (09:13)
[2021-09-04] MEDS: ASPIRIN 81 MG ECTAB PO SCH (09:14)
[2021-09-04] MEDS: METOPROLOL SUCC 25MG EXT REL TAB PO SCH ×2 (09:14→20:09)
[2021-09-04] MEDS: UMECLIDINIUM BROMIDE 62.5MCG/BLISTER 7 PUFFS/INHALER INH SCH (09:15)
[2021-09-04] MEDS: INSULIN ASPART PER UNIT SC SCH ×4 (09:15→20:37)
[2021-09-04] MEDS: FLUTICASONE/VILANTEROL 200/25MCG 14 PUFFS/INHALER INH SCH (09:15)
[2021-09-04] MEDS: FAMOTIDINE 20 MG in SYRINGE 3 ML IV SCH (09:22)
--- NOTE | 2021-09-04 09:46 | Nephrology Progress Note ---
Date of Service September 04, 2021 Assessment & Plan (1) Acute kidney injury superimposed on chronic kidney disease: Plan: Clinically consistent with acute CRS. Predominately right heart failure with noted persistent third spacing but decreased EAV. Non-oliguric. Maintaining reasonably negative fluid balance. Electrolytes acceptable. No emergent indication for dialysis. Goal is to maintain net negative fluid balance ~1 to 1.5 L/d. Furosemide 80 mg PO daily provided today. Document strict I/O's. Repeat metabolic profile tomorrow AM. Potential future indications for [employer] reviewed in detail previously. Permissive rise in creatinine with diuresis. Oral potassium replacement is being provided PRN. 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 Medications currently appropriately dosed for kidney dysfunction. Close follow up with Dr. Calixto will be essential post discharge. (3) Hepatic cirrhosis: Plan: MELD 24. I suspect confusion and feeling unwell this AM may be related to hypoglycemia being treated. (4) Anemia: Plan: Management per heme. H/H stable. (5) Acute diastolic (congestive) heart failure: Plan: Continued improvement noted. CXR reviewed this AM. Furosemide 80 mg PO daily. She is diuresing acceptably. May consider an additional dose of furosemide if not negative >1 L by this afternoon. Admission and Anticipated Discharge Date Admission Date: August 28, 2021 Subjective No acute events overnight. Nat seemed slightly confused this morning during my initial assessment. She seemed to reorient quickly. She reports no appetite and some difficulty sleeping last night. She reported feeling "out of sorts." Denies pain. No shortness of breath. No fevers or chills. Review of Systems Review of Systems: All systems reviewed & are unremarkable except as noted in HPI & below Physical Exam Constitutional: well developed and + morbidly obese; no acute distress Eyes: + anicteric sclerae; no corneal abnormality ENMT: Mouth: no oral mucosal abnormality and oral mucous membranes not dry Neck: normal visual inspection and trachea midline Respiratory: normal respiratory effort and + tachypneic Auscultation: + diminished lung sounds Cardiovascular: Rate/Rhythm: regular rate and + irregularly irregular Heart Sounds: normal S1 and normal S2 Extremities: + edema Musculoskeletal: Extremities: no cyanosis and no clubbing Skin: normal turgor and + turgor decreased; no lesions Neurologic: Motor/Sensory: no tremor and no asterixis Psychiatric: Orientation: alert and oriented x 3 Results & Data ([facility]) Vital Signs (Past 12 Hours) Vital Signs Temp Pulse Pulse Resp BP Pulse Ox O2 Del Method 09/04/21 09:28 Nasal Cannula 09/04/21 07:03 36.8 C 65 18 115/69 93 Room Air 09/04/21 06:54 76 09/04/21 03:03 36.5 C 67 16 98/62 L 92 BiPAP 09/04/21 02:12 76 19 95 09/04/21 02:11 77 09/03/21 23:06 37.0 C 65 24 104/72 95 BiPAP 09/03/21 22:14 75 22 93 O2 Flow Rate 09/04/21 09:28 2 09/04/21 07:03 09/04/21 06:54 09/04/21 03:03 09/04/21 02:12 2 09/04/21 02:11 09/03/21 23:06 09/03/21 22:14 1 Laboratory Results Laboratory Results - last 24 hr 09/03/21 09/03/21 09/03/21 10:05 11:38 16:08 WBC RBC Hgb Hct MCV MCH MCHC RDW Std Deviation RDW Coeff of Gomez Plt Count MPV Immature Gran % (Auto) Neut % (Auto) Lymph % (Auto) [place] % (Auto) Eos % (Auto) Baso % (Auto) Neut # (Auto) Lymph # (Auto) [place] # (Auto) Eos # (Auto) Baso # (Auto) Immature Gran # (Auto) Absolute Nucleated RBC Nucleated RBC % (auto) Sodium 130 L Potassium 3.6 Chloride 91 L Carbon Dioxide 26 Anion Gap 13 H BUN 68 H Creatinine 3.64 H Est Cr Clr Drug Dosing 15.6 Est GFR ( Amer) 13.9 Est GFR (Non-Af Amer) 12.0 BUN/Creatinine Ratio 18.7 Glucose 123 H POC Glucose 125 H 171 H Fasting Glucose Calcium 8.6 Phosphorus Magnesium Total Bilirubin AST ALT Alkaline Phosphatase Troponin I High Sens 53.2 H* D Total Protein Albumin Globulin Albumin/Globulin Ratio 09/03/21 09/04/21 09/04/21 20:33 05:44 05:44 WBC 5.05 RBC 3.71 L Hgb 10.6 L Hct 32.5 L MCV 87.6 MCH 28.6 MCHC 32.6 RDW Std Deviation 57.2 H RDW Coeff of Gomez 18.1 H Plt Count 87 L MPV 11.9 Immature Gran % (Auto) 3.8 Neut % (Auto) 72.3 Lymph % (Auto) 18.0 [place] % (Auto) 5.5 Eos % (Auto) 0.0 Baso % (Auto) 0.4 Neut # (Auto) 3.65 Lymph # (Auto) 0.91 L [place] # (Auto) 0.28 Eos # (Auto) 0.00 Baso # (Auto) 0.02 Immature Gran # (Auto) 0.19 H Absolute Nucleated RBC 0.09 H Nucleated RBC % (auto) 1.8 Sodium 133 L Potassium 3.4 L Chloride 94 L Carbon Dioxide 28 Anion Gap 11 BUN 73 H Creatinine 3.70 H Est Cr Clr Drug Dosing 15.3 Est GFR ( Amer) 13.6 Est GFR (Non-Af Amer) 11.7 BUN/Creatinine Ratio Glucose POC Glucose 176 H Fasting Glucose 52 L* Calcium 8.1 L Phosphorus 4.4 Magnesium 2.1 Total Bilirubin 1.2 H AST 33 ALT 83 H Alkaline Phosphatase 147 H Troponin I High Sens Total Protein 4.9 L Albumin 2.5 L Globulin 2.4 L Albumin/Globulin Ratio 1.0 09/04/21 09/04/21 09/04/21 06:59 07:01 07:19 WBC RBC Hgb Hct MCV MCH MCHC RDW Std Deviation RDW Coeff of Gomez Plt Count MPV Immature Gran % (Auto) Neut % (Auto) Lymph % (Auto) [place] % (Auto) Eos % (Auto) Baso % (Auto) Neut # (Auto) Lymph # (Auto) [place] # (Auto) Eos # (Auto) Baso # (Auto) Immature Gran # (Auto) Absolute Nucleated RBC Nucleated RBC % (auto) Sodium Potassium Chloride Carbon Dioxide Anion Gap BUN Creatinine Est Cr Clr Drug Dosing Est GFR ( Amer) Est GFR (Non-Af Amer) BUN/Creatinine Ratio Glucose POC Glucose 51 L* 56 L* 139 H Fasting Glucose Calcium Phosphorus Magnesium Total Bilirubin AST ALT Alkaline Phosphatase Troponin I High Sens Total Protein Albumin Globulin Albumin/Globulin Ratio PG Care Time/CCT Total # of Minutes Spent Total Time Spent with Patient: Total time spent is greater than 50% in coordination of care (as documented) at patient's floor/unit and/or counseling patient: Coding Level of Care Code 15097 Subseq Hosp Care Lvl 3 Diagnoses Acute kidney injury superimposed on chronic kidney disease N17.9; N18.9 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
[2021-09-04] MEDS: cefTRIAXone SODIUM 2,000 MG in DEXTROSE 5% 50 ML IV SCH (10:20)
[2021-09-04] MEDS: ALUMINUM/MAGNESIUM SUSP 30 ML UDC PO PRN (10:25)
[2021-09-04] MEDS ORDERED: POTASSIUM CHLORIDE CRTAB 20 MEQ TABCR PO ONE (12:00)
[2021-09-04] MEDS: ONDANSETRON INJ 2 MG/ML 2 ML VIAL IV PRN (12:16)
[2021-09-04] MEDS: ISOSORBIDE MONO EXTENDED REL 60 MG TABCR PO SCH (12:16)
[2021-09-04] MEDS ORDERED: PROMETHAZINE HCL 6.25 MG in SODIUM CHLORIDE 0.9% 50 ML IV ONE (12:50)
--- NOTE | 2021-09-04 14:06 | Pharmacy Report ---
Pharmacy Glycemic Short Note 2 - Date of Service September 04, 2021 - Glycemic Short BSG Results (Last 24 hours): 09/03/21 09/03/21 09/04/21 16:08 20:33 05:44 POC Glucose 171 H 176 H Fasting Glucose 52 L* 09/04/21 09/04/21 09/04/21 06:59 07:01 07:19 POC Glucose 51 L* 56 L* 139 H Fasting Glucose 09/04/21 11:26 POC Glucose 110 H Fasting Glucose OUTPATIENT ANTIDIABETIC REGIMEN: * Novolog insulin pump (omnipod) -- up to 230 units per day * HbA1c: unreliable in the setting of anemia with regular iron infusions ASSESSMENT: 09/04/21: * Pt had an episode of asymptomatic hypoglycemia this morning (BSG 52mg/dL). Lantus was reduced this morning and will not be given in the evening. * Novolog parameters loosened this afternoon in an additional effort to prevent further hypoglycemia. 09/03 * BSGs have been relatively stable. Pt remains on Prednisone 20mg PO daily. * No changes required at this time. 08/30 * Insulin pump trial did not go well overnight, multiple low BSGs observed overnight (34 mg/dL, 22 mg/dL, etc.) despite basal rate reduction * RN removed insulin pump after sustained lows observed * Will manage with SC basal/bolus while inpatient * Patient will likely require basal reduction in insulin pump - CDE consulted * Waited until upward BSG trend noted at lunchtime to give basal * Will leave sign out with second-shift pharmacist for possible tightening of Novolog 08/29 * Patient received 19 units of insulin yesterday once insulin pump removed * IV hydrocortisone changed to prednisone 20 mg PO daily only * Originally planned on continuing with SC basal/bolus insulin, but patient's brought insulin pump in from home and it was connected without informing staff. RN discovered insulin pump was connected as he was going to give lunchtime SC insulin doses. Discussed with hospitalist and will continue insulin pump for now. * In the past, patient has used temporary basal rates when needed - will continue to assess appropriateness of pump while inpatient 08/28 * Ms Kaur is a Type 2 diabetic female admitted with respiratory failure/pna. * She is normally managed on a Novolog pump. Pt was significantly hypoglycemic in the ED, so insulin pump was removed. Pt will be managed with SQ basal/bolus insulin during admission until it is appropriate to resume her pump. * Ms Kaur is ordered IV hydrocortisone and PO prednisone, which are likely to contribute to steroid-induced hyperglycemia. * Given patient's persistent hypoglycemia today, will initiate Novolog with conservative parameters and dose basal insulin this evening based on her BSG. * Will continue to follow and adjust as needed. PLAN FOR INPATIENT GLYCEMIC CONTROL: * Basal insulin * Lantus 25 units SQ qAM * Bolus insulin * Goal BSG Range: Low 110 mg/dL, High 140 mg/dL * Correction Factor: 15 mg/dL/unit * Carbohydrate ratio = 5 g/unit
[2021-09-04] MEDS ORDERED: EPOETIN ALFA 10,000 UNITS/ML VIAL SQ SCH (17:00)
[2021-09-04] MEDS ORDERED: FUROSEMIDE 80 MG TAB PO ONE (18:26)
[2021-09-04] MEDS: traZODone HCL 50 MG TAB PO SCH (20:09)
[2021-09-04] MEDS: MONTELUKAST SODIUM 10 MG TABLET PO SCH (20:10)
[2021-09-05] MEDS: LEVOTHYROXINE SODIUM 88 MCG TABLET PO SCH (05:42)
[2021-09-05 06:05] LABS: Basophils # (auto) 0.01 K/uL (0-0.2); Basophils % (auto) 0.2 %; Eosinophils # (auto) 0.02 K/uL (0-0.50); Eosinophils % (auto) 0.4 %; Hematocrit (blood only) 30.3 % (34.1-44.9); Hemoglobin 9.8 g/dl (12.0-16.0); Immature Granulocytes % (auto) 4.3 %; Lymphocytes # (auto) 0.89 K/uL (1.2-3.4); Lymphocytes % (auto) 19.1 %; Mean Corpuscular Hemoglobin 29.1 pg (25.0-34.0); Mean Corpuscular Hgb Conc 32.3 g/dL (32.0-36.0); Mean Corpuscular Volume 89.9 fL (80.0-100.0); Mean Platelet Volume 11.7 fL (9.4-12.3); Monocytes # (auto) 0.27 K/uL (0.24-0.82); Monocytes % (auto) 5.8 %; Neutrophils # (auto) 3.26 K/uL (1.4-6.5); Neutrophils % (auto) 70.2 %; Nucleated RBC # (auto) 0.06 K/uL (0-0); Nucleated RBC % (auto) 1.3 %; Platelet Count 88 K/uL (130-400); RDW Coefficient of Variation 19.4 % (11.5-14.5); RDW Standard Deviation 62.6 fL (36.4-46.3); Red Blood Count 3.37 M/uL (3.93-5.22); White Blood Count 4.65 K/ul (4.8-10.8)
[2021-09-05 06:36] LABS: Albumin Level 2.4 gm/dl (3.4-5.0); Bilirubin,Total 1.3 mg/dl (0.2-1.0); Calcium 8.1 mg/dl (8.5-10.1); Creatinine Clr Calc Pharmacy 13.3 ml/min; Est GFR (African American) 12.6 ml/min; Est GFR (Non-African American) 10.8 ml/min; Globulin 2.3 gm/dl (2.5-4.0); Magnesium 2.2 mg/dl (1.7-2.4); Phosphorus 4.5 mg/dl (2.5-4.9); Potassium 4.5 mmol/L (3.5-5.1); Total Protein 4.7 gm/dl (6.0-8.3)
--- NOTE | 2021-09-05 07:44 | Hospitalist Progress Note ---
Date of Service September 05, 2021 Assessment & Plan (1) Hypoxia: Plan: Acute hypoxic respiratory failure secondary to acute on chronic diastolic heart failure; likely has renal salt and water retention from steroid use for remote autoimmune hemolytic anemia reporting "legs giving out" CHANGE DIRECTOR BNP 365, CXR with cardiomegaly and evidence for CHF. Home regimen 40mg lasix/100mg spironolactone for fluid management in patient with hx cirrhosis. Of note, no O2 at home CHANGE DIRECTOR Abx -- IV abx with Ceftriaxone, Azithromycin (completed dose) however more likely acute on chronic CHF. -- Remained on Ceftriaxone/Flagyl for coverage of pulm (already completed azithro course while inpatient, Flagyl possibly causing abd discomforts), but also possible colitis given GI sx days prior and CTap c/w such although appeared more of possible GI bleed DISCONTINUED ABX 09/04 EVENING. 6 days IV Rocephin for pulm w/ 5 days azithro. Flagyl added for possible colitis but appears might have been more of a GI bleed -Initially on lasix 80mg IV BID with addition of metolazone 5mg on 09/02 & 09/03 with significant rise in Cr without significant improvement in edema -Nephrology following, aiming for -1-1.5L negative fluid balance -Changed to lasix 80mg PO 09/04, additional 80mg PO given in evening as uop only ~600cc and CXR with continued congestive changes 09/04 -Per nephro, continue to hold Aldactone, although consider given R sided HF but wanting to hold off given rise in Cr -Repeating dose lasix for this evening 09/05 with 40mg IV x 1 -Daily weights,I&Os Net negative -7.8L -Continue fluid restriction 1200cc/daily O2 to maintain sats -- currently 96% on 2L Suspect acute on chronic anemia also contributing in patient with remote hx autoimmune hemolytic anemia and 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 on admit Reports of melena earlier in the stay, Eliquis placed on hold and CTAP with possible colitis however review and review heme/onc note w/ suspected possible GI bleed s/p 2 u PRBCs GI consulted given bleeding prior Continuing on Protonix IV BID, converted to PO BID No further bleeding reported and has been off Eliquis, NSR on monitor, but resuming 09/05 and will monitor With regards to steroid use, initially was placed on methylprednisolone, converted to prednisone 100mg daily and became refractory to steroids, therefore started weekly rituximab x 4 doses on 08/01/21 had been being tapered by 10mg weekly, was on 60mg CHANGE DIRECTOR and about to go to 40mg daily, but placed on 20mg daily and able to change to 10mg daily for 09/05 as LFTs with continued improvement additional MAYNOR 40,000 for 09/05 and continue weekly hgb stable given where she was when she came in s/p 2 u PRBC and suspect dilutional from excessive fluid volume/edema. TSH wnl PT/OT consults requested as has not yet been out of bed -- recommending lift, will need rehab. CM alerted and to discuss with today who is in the room with patient (2) Acute on chronic diastolic (congestive) heart failure: Plan: ECHO w/ LV systolic function normal. no regional wma, mild concentric LVH. EF 60-65%. Mild MR, mild TR. Cards consulted while inpatient Also with cirrhosis on lasix 40mg daily with 100mg spironolactone CHANGE DIRECTOR TSH wnl Suspect peripheral edema also contributing from underlying cirrhosis/low albumin (albumin 2.4) -- ?consider dose albumin to shift to intravascular space , holding off as not clear benefit Diuresis as above, nephrology following and rec cont'd to hold aldactone (3) CKD (chronic kidney disease) stage 5, GFR less than 15 ml/min: Plan: Stage V based on current parameters; no urgent need for dialysis, Nephrology on consult WORSENING RENAL FAILURE, Cr up to 3.95 but still excess volume and need for diuretics as outlined Continue to aim for negative fluid balance Renal dose meds/adjustments as needed BMP in AM (4) Elevated troponin: Plan: Likely type II IA, demand ischemia; repeat trop earlier in week for reported CP cut in half from prior value, prior isosorbide which had been stopped due to sof t BPs but no CP reported since resuming ASA 81mg continued prior, eliquis resumed for 09/05 Cards consulted during inpatient stay EKG c/ CP (5) Controlled type 2 diabetes mellitus with neurologic complication, with long- term current use of insulin: Plan: endorgan damage including chronic kidney disease stage IV states with the steroids sugars had actually been a little lower at home Glu 52 AM 09/04 with some increased confusion/low appetite, pharmacy managing and adjustments made with improvement in BSGs DM educator consulted, rec reconnect at least 24 hours prior to d/c, reduce basal rate by 50%/loosen CF Monitor (6) Pancytopenia: Plan: Hematology consulted; secondary to history of cirrhosis, splenomegaly, and autoimmune hemolytic anemia suspected GI bleed causing acute worsening of her baseline anemia, in conjunction with her CKD patient given MAYNOR 1 dose 10,000 provided 08/30 Discussed with heme/onc and not enough MAYNOR given prior, recs for 40,000 for 09/05, repeat weekly w/ hematology although hgb about baseline given where she was and s/p 2u prbc earlier in stay Reduced steroids to 10mg daily given improvement in LFTs, do not suspect related to hemolytic anemia Plts improved to 86 currently (baseline but worse prior in stay) (7) GI bleed: Plan: On 08/29 nursing had reported dark stool with surrounding cameron blood; ct IV PPI, GI input appreciated Noted some question of hematuria but UA trace blood/no RBC, ?myopathy, no prior ck checked (8) Anemia: Plan: Hx remote autoimmune hemolytic anemia, refractory to steroids Initially was placed on methylprednisolone, converted to prednisone 100mg daily and became refractory to steroids, therefore started weekly rituximab x 4 doses on 08/01/21 had been being tapered by 10mg weekly, was on 60mg CHANGE DIRECTOR and about to go to 40mg daily, but placed on 20mg daily and able to change to 10mg daily for 09/05 as LFTs with continued improvement additional MAYNOR 40,000 for 09/05 and continue weekly Monitor CBC (9) Paroxysmal atrial fibrillation: Plan: Eliquis on hold since 08.28, resumed as no further bleeding reported. NSR on monitor with PACs Monitor for any bleeding Restarted Eliquis (10) Hepatic cirrhosis: Plan: Outpatient follow-up in this regard; not encephalopathic. Ammonia 46 Plt stable LFts improving Continues on lasix, but spironolactone on hold per nephrology (11) Hypothyroidism: Plan: TSH wnl April 2021, continue usual Synthroid dose. Repeat TSH wnl (12) Obstructive sleep apnea: Plan: Continue CPAP at 9 (13) Obesity, Class II, BMI 35-39.9: Plan: Lifestyle modification (14) Elevated procalcitonin: Plan: Procal 5.4 on admit, combination possible pneumonia vs CHF, also anemia/possible GI bleed Tx as outlined, repeat procal 2.05 Impressively elevated on second check, better on recheck; no clear localization but given abdominal symptoms and CT scan findings empirically on Rocephin, added Flagyl day prior (initially was on empiric Rocephin plus azithromycin); SBP in the differential and at some point can consider diagnostic paracentesis but will not change managementalternative is empirically finished treatment (15) Abdominal pain: Plan: CT abdomenno clear acute findings though question of nonspecific colitis however could be congestion from her edema/liver cirrhosis. Hx abdominal surgery and laparotomy for adnexal mass August 2019 ?ischemic colitis/?hypotension prior w/ reports melena earlier in stay GI on consult, continue PPI BID -- per , patient to also be on carafate, added to profile No pain reported 09/05 but still with low appetite Plan prolonged inpatient stay will eventually need rehab working on diuresis as outlined Admission and Anticipated Discharge Date Admission Date: August 28, 2021 Supervising Physician Co-Signing Physician Notes VICKY Supervision Note: I did not personally see or examine the patient today, but I verified all lobato points of VICKY Breaux's assessment and plan with the following exceptions/additions: None Subjective Patient evaluated this morning. Feeling very fatigued and wiped out. Denies any chest pain or abdominal pain today. No nausea and currently eating pancakes. Oxygen was found above head at present but no increased work of breathing or cough. Denies sputum production/fever. Does have increased edema and discussed with Dr Rivera at bedside to continue her lasix this morning but could be moving to dialysis. She endorses she had talked with Dr Calixto in the past but that that isn't something she would really want. Will continue to try and diurese with medications and monitor response. Encouraged work with therapy given weakness and prolonged inpatient stay -- PT evals with rec for lift. Visited with patient again this afternoon, at bedside. He states that prior to being hospitalized that Nat had been pretty much living in her lazy boy. Along with steroids and increased CHF likely contributing. Confirmed they have talked about HD in past and Nat would not want that but they are still wanting to be a full code. states cannot take home in condition and would need rehab but clearly not ready just yet and "not in a massey to get her discharged".\\ Review of Systems Review of Systems: All systems reviewed & are unremarkable except as noted in HPI & below Physical Exam Physical Exam: General: WD obese female laying in bed upon entry, NAD but O2 nasal cannula on forehead upon arrival, general pallor/fatigue HEENT: head normocephalic, mm slightly dry, trachea midline without deviation Resp: no cough, not tachypneic, lung sounds diminished in the bases with associated crackles, end expiratory wheezing, on 2L NC CV: RRR, +faint systolic murmur, no gallop, pitting edema to b/l UE 2+, b/l LE 3+ pedal edema, 2-3+ edema to level of the thighs (reported had legs hanging off bed earlier) GI: +BS, soft, +distended, +edema (decreased), nontender MSK/Neuro: follows commands, no focal deficit but generalized weakness, strength 1-2/5 throughout moves all extremities, generalized weakness, follows commands, no facial droop, CN intact grossly Skin: cool, dry Results & Data Results & Data ([facility]) Vital Signs (Past 12 Hours) Vital Signs Temp Pulse Pulse Pulse Resp BP Pulse Ox 09/05/21 03:40 37 C 80 17 121/69 98 09/05/21 02:42 72 17 92 09/04/21 23:31 71 09/04/21 23:14 36.2 C L 74 12 90/65 L 95 09/04/21 23:06 74 19 92 09/04/21 21:02 09/04/21 19:57 36.9 C 106 H 19 123/50 L 99 O2 Del Method O2 Flow Rate 09/05/21 03:40 BiPAP 09/05/21 02:42 2 09/04/21 23:31 09/04/21 23:14 Room Air 09/04/21 23:06 2 09/04/21 21:02 Nasal Cannula 2 09/04/21 19:57 Nasal Cannula 2 Laboratory Results 09/05/21 09/05/21 09/05/21 Range/Units 07:03 05:54 05:54 WBC 4.65 L (4.8-10.8) K/ul RBC 3.37 L (3.93-5.22) M/uL Hgb 9.8 L (12.0-16.0) g/dl Hct 30.3 L (34.1-44.9) % MCV 89.9 (80.0-100.0) fL MCH 29.1 (25.0-34.0) pg MCHC 32.3 (32.0-36.0) g/dL RDW Std Deviation 62.6 H (36.4-46.3) fL RDW Coeff of Gomez 19.4 H (11.5-14.5) % Plt Count 88 L (130-400) K/uL MPV 11.7 (9.4-12.3) fL Immature Gran % (Auto) 4.3 % Neut % (Auto) 70.2 % Lymph % (Auto) 19.1 % [place] % (Auto) 5.8 % Eos % (Auto) 0.4 % Baso % (Auto) 0.2 % Neut # (Auto) 3.26 (1.4-6.5) K/uL Lymph # (Auto) 0.89 L (1.2-3.4) K/uL [place] # (Auto) 0.27 (0.24-0.82) K/uL Eos # (Auto) 0.02 (0-0.50) K/uL Baso # (Auto) 0.01 (0-0.2) K/uL Immature Gran # (Auto) 0.20 H (0.00-0.02) K/uL Absolute Nucleated RBC 0.06 H (0-0) K/uL Nucleated RBC % (auto) 1.3 % Sodium 133 L (136-145) mmol/L Potassium 4.5 D (3.5-5.1) mmol/L Chloride 96 L (98-107) mmol/L Carbon Dioxide 28 (21-32) mmol/L Anion Gap 9 (3-11) BUN 77 H (6-23) mg/dl Creatinine 3.95 H (0.6-1.2) mg/dl Est Cr Clr Drug Dosing 13.3 ml/min Est GFR ( Amer) 12.6 ml/min Est GFR (Non-Af Amer) 10.8 ml/min POC Glucose 89 (70-99) mg/dl Fasting Glucose 85 (70-99) mg/dl Calcium 8.1 L (8.5-10.1) mg/dl Phosphorus 4.5 (2.5-4.9) mg/dl Magnesium 2.2 (1.7-2.4) mg/dl Total Bilirubin 1.3 H (0.2-1.0) mg/dl AST 28 (13-39) U/L ALT 62 H (7-52) U/L Alkaline Phosphatase 135 H (34-104) U/L Ammonia (18-72) umol/L Total Protein 4.7 L (6.0-8.3) gm/dl Albumin 2.4 L (3.4-5.0) gm/dl Globulin 2.3 L (2.5-4.0) gm/dl Albumin/Globulin Ratio 1.0 (0.9-2) 09/04/21 09/04/21 09/04/21 Range/Units 20:22 16:15 11:26 WBC (4.8-10.8) K/ul RBC (3.93-5.22) M/uL Hgb (12.0-16.0) g/dl Hct (34.1-44.9) % MCV (80.0-100.0) fL MCH (25.0-34.0) pg MCHC (32.0-36.0) g/dL RDW Std Deviation (36.4-46.3) fL RDW Coeff of Gomez (11.5-14.5) % Plt Count (130-400) K/uL MPV (9.4-12.3) fL Immature Gran % (Auto) % Neut % (Auto) % Lymph % (Auto) % [place] % (Auto) % Eos % (Auto) % Baso % (Auto) % Neut # (Auto) (1.4-6.5) K/uL Lymph # (Auto) (1.2-3.4) K/uL [place] # (Auto) (0.24-0.82) K/uL Eos # (Auto) (0-0.50) K/uL Baso # (Auto) (0-0.2) K/uL Immature Gran # (Auto) (0.00-0.02) K/uL Absolute Nucleated RBC (0-0) K/uL Nucleated RBC % (auto) % Sodium (136-145) mmol/L Potassium (3.5-5.1) mmol/L Chloride (98-107) mmol/L Carbon Dioxide (21-32) mmol/L Anion Gap (3-11) BUN (6-23) mg/dl Creatinine (0.6-1.2) mg/dl Est Cr Clr Drug Dosing ml/min Est GFR ( Amer) ml/min Est GFR (Non-Af Amer) ml/min POC Glucose 141 H 101 H 110 H (70-99) mg/dl Fasting Glucose (70-99) mg/dl Calcium (8.5-10.1) mg/dl Phosphorus (2.5-4.9) mg/dl Magnesium (1.7-2.4) mg/dl Total Bilirubin (0.2-1.0) mg/dl AST (13-39) U/L ALT (7-52) U/L Alkaline Phosphatase (34-104) U/L Ammonia (18-72) umol/L Total Protein (6.0-8.3) gm/dl Albumin (3.4-5.0) gm/dl Globulin (2.5-4.0) gm/dl Albumin/Globulin Ratio (0.9-2) // Range/Units 10:55 WBC (4.8-10.8) K/ul RBC (3.93-5.22) M/uL Hgb (12.0-16.0) g/dl Hct (34.1-44.9) % MCV (80.0-100.0) fL MCH (25.0-34.0) pg MCHC (32.0-36.0) g/dL RDW Std Deviation (36.4-46.3) fL RDW Coeff of Gomez (11.5-14.5) % Plt Count (130-400) K/uL MPV (9.4-12.3) fL Immature Gran % (Auto) % Neut % (Auto) % Lymph % (Auto) % [place] % (Auto) % Eos % (Auto) % Baso % (Auto) % Neut # (Auto) (1.4-6.5) K/uL Lymph # (Auto) (1.2-3.4) K/uL [place] # (Auto) (0.24-0.82) K/uL Eos # (Auto) (0-0.50) K/uL Baso # (Auto) (0-0.2) K/uL Immature Gran # (Auto) (0.00-0.02) K/uL Absolute Nucleated RBC (0-0) K/uL Nucleated RBC % (auto) % Sodium (136-145) mmol/L Potassium (3.5-5.1) mmol/L Chloride (98-107) mmol/L Carbon Dioxide (21-32) mmol/L Anion Gap (3-11) BUN (6-23) mg/dl Creatinine (0.6-1.2) mg/dl Est Cr Clr Drug Dosing ml/min Est GFR ( Amer) ml/min Est GFR (Non-Af Amer) ml/min POC Glucose (70-99) mg/dl Fasting Glucose (70-99) mg/dl Calcium (8.5-10.1) mg/dl Phosphorus (2.5-4.9) mg/dl Magnesium (1.7-2.4) mg/dl Total Bilirubin (0.2-1.0) mg/dl AST (13-39) U/L ALT (7-52) U/L Alkaline Phosphatase (34-104) U/L Ammonia 41.0 (18-72) umol/L Total Protein (6.0-8.3) gm/dl Albumin (3.4-5.0) gm/dl Globulin (2.5-4.0) gm/dl Albumin/Globulin Ratio (0.9-2) PG Care Time/CCT Total # of Minutes Spent Total Time Spent with Patient: Total time spent is greater than 50% in coordination of care (as documented) at patient's floor/unit and/or counseling patient: Coding Level of Care Code 69986 Subseq Hosp Care Lvl 3 Diagnoses Hypoxia R09.02 Acute on chronic diastolic (congestive) heart failure I50.33 CKD (chronic kidney disease) stage 5, GFR less than 15 ml/min N18.5 Elevated troponin R77.8 Controlled type 2 diabetes mellitus with neurologic complication, with long-term current use of insulin E11.49; Z79.4 Pancytopenia D61.818 GI bleed K92.2 Anemia D64.9 Paroxysmal atrial fibrillation I48.0 Hepatic cirrhosis K74.69 Hepatic cirrhosis type: other cirrhosis Hypothyroidism E03.9 Obstructive sleep apnea G47.33 Obesity, Class II, BMI 35-39.9 E66.9 Elevated procalcitonin R79.89 Abdominal pain R10.9 (1) Hepatic cirrhosis Hepatic cirrhosis type: other cirrhosis Qualified Code(s): K74.69 - Other cirrhosis of liver
[2021-09-05] MEDS: FLUTICASONE/VILANTEROL 200/25MCG 14 PUFFS/INHALER INH SCH (08:37)
[2021-09-05] MEDS: PANTOprazole 40 MG in SYRINGE 0 ML IV SCH (08:37)
[2021-09-05] MEDS: SERTRALINE HCL 100 MG TABLET PO SCH (08:37)
[2021-09-05] MEDS: ROSUVASTATIN CALCIUM 10 MG TAB PO SCH (08:37)
[2021-09-05] MEDS: UMECLIDINIUM BROMIDE 62.5MCG/BLISTER 7 PUFFS/INHALER INH SCH (08:37)
[2021-09-05] MEDS: CALCIUM 600MG + VIT D 400 IU TAB PO SCH (08:38)
[2021-09-05] MEDS: METOPROLOL SUCC 25MG EXT REL TAB PO SCH ×2 (08:38→20:45)
[2021-09-05] MEDS: INSULIN ASPART PER UNIT SC SCH ×4 (08:38→20:49)
[2021-09-05] MEDS: ASPIRIN 81 MG ECTAB PO SCH (08:38)
[2021-09-05] MEDS: ISOSORBIDE MONO EXTENDED REL 60 MG TABCR PO SCH (08:38)
[2021-09-05] MEDS: predniSONE 10 MG TABLET PO SCH (08:38)
[2021-09-05] MEDS: FERROUS SULFATE 325 MG TAB PO SCH (08:38)
[2021-09-05] MEDS: FUROSEMIDE 80 MG TAB PO SCH (08:38)
[2021-09-05] MEDS: CYANOCOBALAMIN (B-12) 500 MCG TABLET PO SCH (08:39)
[2021-09-05] MEDS: FAMOTIDINE 20 MG in SYRINGE 3 ML IV SCH (08:45)
[2021-09-05] MEDS ORDERED: EPOETIN ALFA 40,000 UNITS/ML VIAL SQ SCH (09:00)
--- NOTE | 2021-09-05 09:54 | Nephrology Progress Note ---
Date of Service September 05, 2021 Assessment & Plan (1) Acute kidney injury superimposed on chronic kidney disease: Plan: CRS. Predominately right heart failure with noted persistent third spacing. Decreased EAV. Non-oliguric. Maintaining reasonably negative fluid balance. Electrolytes acceptable. No emergent indication for dialysis. Goal is to maintain net negative fluid balance ~1 to 1.5 L/d. Furosemide 80 mg PO daily provided today. Document strict I/O's. Repeat metabolic profile tomorrow AM. Potential future indications for TYPECAST[employer]ACH[employer]PER[employer] reviewed today. Permissive rise in creatinine with diuresis. Oral potassium replacement is being provided PRN. Continue to hold spironolactone. 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 Medications currently appropriately dosed for kidney dysfunction. (3) Hepatic cirrhosis: Plan: MELD 24. (4) Anemia: Plan: Management per hematology. (5) Acute diastolic (congestive) heart failure: Plan: Continued improvement noted. CXR reviewed this AM. Furosemide 80 mg PO daily. Admission and Anticipated Discharge Date Admission Date: August 28, 2021 Subjective No acute events overnight. Additional furosemide 80 mg provided yesterday to encourage negative fluid balance 1.4 L. Nat is feeling very tired this morning. She was seen and evaluated with the bedside RN and Bessie Breaux PA-C. Goals of care were discussed. Notable weakness. Persistent HOOKS with minimal activity. Appetite poor. Initially, Nat indicated that she would not want dialysis but ultimately she is resolved to start if needed. Thankfully, electrolytes are acceptable and urine output acceptable. Review of Systems Review of Systems: All systems reviewed & are unremarkable except as noted in HPI & below Constitutional: no fever and no chills Physical Exam Constitutional: well developed and + morbidly obese; no acute distress Eyes: + anicteric sclerae; no corneal abnormality ENMT: Mouth: no oral mucosal abnormality and oral mucous membranes not dry Neck: normal visual inspection and trachea midline Respiratory: normal respiratory effort and + tachypneic Auscultation: + diminished lung sounds Cardiovascular: Rate/Rhythm: regular rate and + irregularly irregular Heart Sounds: normal S1 and normal S2 Extremities: + edema Musculoskeletal: Extremities: no cyanosis and no clubbing Skin: normal turgor and + turgor decreased; no lesions Neurologic: Motor/Sensory: no tremor and no asterixis Psychiatric: Orientation: alert and oriented x 3 Results & Data ([facility]) Vital Signs (Past 12 Hours) Vital Signs Temp Pulse Pulse Pulse Pulse Resp BP 09/05/21 07:20 36.5 C 79 25 H 101/63 09/05/21 07:39 09/05/21 07:41 69 09/05/21 03:40 37 C 80 17 121/69 09/05/21 02:42 72 17 09/04/21 23:31 71 09/04/21 23:14 36.2 C L 74 12 90/65 L 09/04/21 23:06 74 19 Pulse Ox O2 Del Method O2 Flow Rate 09/05/21 07:20 96 CPAP 09/05/21 07:39 Nasal Cannula, CPAP 2 09/05/21 07:41 09/05/21 03:40 98 BiPAP 09/05/21 02:42 92 2 09/04/21 23:31 09/04/21 23:14 95 Room Air 09/04/21 23:06 92 2 Laboratory Results Laboratory Results - last 24 hr 09/04/21 09/04/21 09/04/21 10:55 11:26 16:15 WBC RBC Hgb Hct MCV MCH MCHC RDW Std Deviation RDW Coeff of Gomez Plt Count MPV Immature Gran % (Auto) Neut % (Auto) Lymph % (Auto) Hendricks % (Auto) Eos % (Auto) Baso % (Auto) Neut # (Auto) Lymph # (Auto) Hendricks # (Auto) Eos # (Auto) Baso # (Auto) Immature Gran # (Auto) Absolute Nucleated RBC Nucleated RBC % (auto) Sodium Potassium Chloride Carbon Dioxide Anion Gap BUN Creatinine Est Cr Clr Drug Dosing Est GFR ( Amer) Est GFR (Non-Af Amer) POC Glucose 110 H 101 H Fasting Glucose Calcium Phosphorus Magnesium Total Bilirubin AST ALT Alkaline Phosphatase Ammonia 41.0 Total Protein Albumin Globulin Albumin/Globulin Ratio TSH 09/04/21 09/05/21 09/05/21 20:22 05:54 05:54 WBC 4.65 L RBC 3.37 L Hgb 9.8 L Hct 30.3 L MCV 89.9 MCH 29.1 MCHC 32.3 RDW Std Deviation 62.6 H RDW Coeff of Gomez 19.4 H Plt Count 88 L MPV 11.7 Immature Gran % (Auto) 4.3 Neut % (Auto) 70.2 Lymph % (Auto) 19.1 Hendricks % (Auto) 5.8 Eos % (Auto) 0.4 Baso % (Auto) 0.2 Neut # (Auto) 3.26 Lymph # (Auto) 0.89 L Hendricks # (Auto) 0.27 Eos # (Auto) 0.02 Baso # (Auto) 0.01 Immature Gran # (Auto) 0.20 H Absolute Nucleated RBC 0.06 H Nucleated RBC % (auto) 1.3 Sodium 133 L Potassium 4.5 D Chloride 96 L Carbon Dioxide 28 Anion Gap 9 BUN 77 H Creatinine 3.95 H Est Cr Clr Drug Dosing 13.3 Est GFR ( Amer) 12.6 Est GFR (Non-Af Amer) 10.8 POC Glucose 141 H Fasting Glucose 85 Calcium 8.1 L Phosphorus 4.5 Magnesium 2.2 Total Bilirubin 1.3 H AST 28 ALT 62 H Alkaline Phosphatase 135 H Ammonia Total Protein 4.7 L Albumin 2.4 L Globulin 2.3 L Albumin/Globulin Ratio 1.0 TSH 09/05/21 09/05/21 07:03 09:33 WBC RBC Hgb Hct MCV MCH MCHC RDW Std Deviation RDW Coeff of Gomez Plt Count MPV Immature Gran % (Auto) Neut % (Auto) Lymph % (Auto) Hendricks % (Auto) Eos % (Auto) Baso % (Auto) Neut # (Auto) Lymph # (Auto) Hendricks # (Auto) Eos # (Auto) Baso # (Auto) Immature Gran # (Auto) Absolute Nucleated RBC Nucleated RBC % (auto) Sodium Potassium Chloride Carbon Dioxide Anion Gap BUN Creatinine Est Cr Clr Drug Dosing Est GFR ( Amer) Est GFR (Non-Af Amer) POC Glucose 89 Fasting Glucose Calcium Phosphorus Magnesium Total Bilirubin AST ALT Alkaline Phosphatase Ammonia Total Protein Albumin Globulin Albumin/Globulin Ratio TSH Pending PG Care Time/CCT Total # of Minutes Spent Total Time Spent with Patient: Total time spent is greater than 50% in coordination of care (as documented) at patient's floor/unit and/or counseling patient: Coding Level of Care Code 59259 Subseq Hosp Care Lvl 3 Diagnoses Acute kidney injury superimposed on chronic kidney disease N17.9; N18.9 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
[2021-09-05] MEDS: LANTUS PER UNIT CHARGE SQ SCH (10:21)
[2021-09-05] MEDS: APIXABAN 5 MG TABLET PO SCH ×2 (10:36→20:40)
--- NOTE | 2021-09-05 11:58 | Pharmacy Report ---
Pharmacy Glycemic Short Note 2 - Date of Service September 05, 2021 - Glycemic Short BSG Results (Last 24 hours): 09/04/21 09/04/21 09/05/21 16:15 20:22 05:54 POC Glucose 101 H 141 H Fasting Glucose 85 09/05/21 09/05/21 07:03 11:13 POC Glucose 89 88 Fasting Glucose OUTPATIENT ANTIDIABETIC REGIMEN: * Novolog insulin pump (omnipod) -- up to 230 units per day * HbA1c: unreliable in the setting of anemia with regular iron infusions ASSESSMENT: 09/05/21 * BSGs yesterday were [phone] mg/dL. * Patient received 31 units of insulin yesterday (25 units of basal and 6 units of bolus). * Fasting today is 89 mg/dL. * Planned to reduce Lantus by 20% today. Due to hypoglycemia episode yesterday, basal was reduced by ~50%. Fasting still below goal range so reduced by 20% to 20 units. Patient refused basal insulin today. * Loosen Novolog as prednisone reduced to 10 mg today. 09/04/21: * Pt had an episode of asymptomatic hypoglycemia this morning (BSG 52mg/dL). Lantus was reduced this morning and will not be given in the evening. * Novolog parameters loosened this afternoon in an additional effort to prevent further hypoglycemia. 09/03 * BSGs have been relatively stable. Pt remains on Prednisone 20mg PO daily. * No changes required at this time. 08/30 * Insulin pump trial did not go well overnight, multiple low BSGs observed overnight (34 mg/dL, 22 mg/dL, etc.) despite basal rate reduction * RN removed insulin pump after sustained lows observed * Will manage with SC basal/bolus while inpatient * Patient will likely require basal reduction in insulin pump - CDE consulted * Waited until upward BSG trend noted at lunchtime to give basal * Will leave sign out with second-shift pharmacist for possible tightening of No volog 08/29 * Patient received 19 units of insulin yesterday once insulin pump removed * IV hydrocortisone changed to prednisone 20 mg PO daily only * Originally planned on continuing with SC basal/bolus insulin, but patient's brought insulin pump in from home and it was connected without informing staff. RN discovered insulin pump was connected as he was going to give lunchtime SC insulin doses. Discussed with hospitalist and will continue insulin pump for now. * In the past, patient has used temporary basal rates when needed - will continue to assess appropriateness of pump while inpatient 08/28 * Ms Kaur is a Type 2 diabetic female admitted with respiratory failure/pna. * She is normally managed on a Novolog pump. Pt was significantly hypoglycemic in the ED, so insulin pump was removed. Pt will be managed with SQ basal/bolus insulin during admission until it is appropriate to resume her pump. * Ms Kaur is ordered IV hydrocortisone and PO prednisone, which are likely to contribute to steroid-induced hyperglycemia. * Given patient's persistent hypoglycemia today, will initiate Novolog with conservative parameters and dose basal insulin this evening based on her BSG. * Will continue to follow and adjust as needed. PLAN FOR INPATIENT GLYCEMIC CONTROL: * Basal insulin * Lantus 20 units SQ qAM * Bolus insulin * Goal BSG Range: Low 110 mg/dL, High 140 mg/dL * Correction Factor: 18 mg/dL/unit * Carbohydrate ratio = 6 g/unit
[2021-09-05] MEDS ORDERED: FUROSEMIDE 40 MG/4 ML VIAL IV ONE (17:00)
[2021-09-05] MEDS: SUCRALFATE 1 GM/10 ML UDC PO SCH ×2 (17:31→20:40)
[2021-09-05] MEDS: MONTELUKAST SODIUM 10 MG TABLET PO SCH (20:41)
[2021-09-05] MEDS: traZODone HCL 50 MG TAB PO SCH (20:42)
[2021-09-05] MEDS: PANTOprazole 40 MG TAB PO SCH (20:42)
[2021-09-06] MEDS: LEVOTHYROXINE SODIUM 88 MCG TABLET PO SCH (05:56)
[2021-09-06 06:44] LABS: Basophils # (auto) 0.01 K/uL (0-0.2); Basophils % (auto) 0.2 %; Eosinophils # (auto) 0.01 K/uL (0-0.50); Eosinophils % (auto) 0.2 %; Hematocrit (blood only) 30.5 % (34.1-44.9); Hemoglobin 9.7 g/dl (12.0-16.0); Immature Granulocytes # (auto) 0.13 K/uL (0.00-0.02); Immature Granulocytes % (auto) 2.9 %; Lymphocytes # (auto) 0.85 K/uL (1.2-3.4); Lymphocytes % (auto) 18.9 %; Mean Corpuscular Hgb Conc 31.8 g/dL (32.0-36.0); Mean Platelet Volume 11.5 fL (9.4-12.3); Monocytes # (auto) 0.28 K/uL (0.24-0.82); Monocytes % (auto) 6.2 %; Neutrophils # (auto) 3.21 K/uL (1.4-6.5); Neutrophils % (auto) 71.6 %; Nucleated RBC # (auto) 0.07 K/uL (0-0); Nucleated RBC % (auto) 1.6 %; Platelet Count 87 K/uL (130-400); RDW Coefficient of Variation 19.6 % (11.5-14.5); RDW Standard Deviation 63.7 fL (36.4-46.3); Red Blood Count 3.35 M/uL (3.93-5.22); White Blood Count 4.49 K/ul (4.8-10.8)
[2021-09-06 07:09] LABS: Echinocytes 1+; INR 1.4 (0.9-1.1); Polychromasia 1+; Prothrombin Time 14.9 Seconds (9.0-12.0); Tear Drop Cells 1+
[2021-09-06 07:14] LABS: Albumin Level 2.4 gm/dl (3.4-5.0); Bilirubin,Total 1.5 mg/dl (0.2-1.0); Calcium 8.1 mg/dl (8.5-10.1); Creatinine Clr Calc Pharmacy 14.1 ml/min; Est GFR (African American) 12.6 ml/min; Est GFR (Non-African American) 10.9 ml/min; Globulin 2.4 gm/dl (2.5-4.0); Magnesium 2.2 mg/dl (1.7-2.4); Phosphorus 4.8 mg/dl (2.5-4.9); Potassium 4.4 mmol/L (3.5-5.1); Total Protein 4.8 gm/dl (6.0-8.3)
--- NOTE | 2021-09-06 07:15 | Ultrasound Report ---
BILATERAL LOWER EXTREMITY VENOUS DOPPLER HISTORY: Lower extremity edema/calf pain off eliquis, r/o DVT COMPARISON STUDY: None. FINDINGS: There is normal compressibility, flow, and augmentation within the bilateral lower extremit y deep venous systems. IMPRESSION: No DVT within the right or left lower extremity. ACT 112: Negative or not required by law. Electronically signed by: Oskar Walsh M.D. 09/06/2021 7:13 AM
--- NOTE | 2021-09-06 07:35 | Hospitalist Progress Note ---
Date of Service September 06, 2021 Assessment & Plan (1) CKD (chronic kidney disease) stage 5, GFR less than 15 ml/min: Plan: Cardiorenal syndrome. Predominately R sided heart failure with noted persistent third spacing. Does appear to have a component of intravascular depletion, non-oliguric. Maintaining negative fluid balance -- Dr Rivera held evening dose 09/05 of lasix given intravascular depletion Continues on Lasix 80mg PO daily, nephrology rec'd to continue holding Aldactone Cr 3.94, no acute HD but may need to consider Renal dose meds/avoid nephrotoxic agents as able BMP in AM (2) Autoimmune hemolytic anemia: Plan: Recent diagnosis, improving Heme/onc consulted during inpatient stay Previously was placed on methylprednisolone, converted to prednisone 100mg daily and became refractory to steroids, therefore started weekly rituximab x 4 doses on 08/01/21 Prednisone had been being tapered by 10mg weekly, was on 60mg [employer] and about to go to 40mg daily, but placed on 20mg daily on admit Discussed with Bessie Mei and changed to 10mg daily for 09/05 as LFTs with continued improvement and almost normalized. LDH further decreased Additional MAYNOR 40,000 for 09/05 and continue weekly with heme/onc in follow-up (3) Hypoxia: Plan: Multifactorial -- CHF, HRS, steroid induced myopathy and generalized weakness Likely has renal salt and water retention from steroid use for remote autoimmune hemolytic anemia reporting "legs giving out" [employer] Home regimen 40mg lasix/100mg spironolactone for fluid management in patient with hx cirrhosis. Of note, no O2 at home [employer] Abx since discontinued days prior (Ceftriaxone, Azithromycin (completed 5 doses dose) on admit, then added flagyl for possible GI bleed but based on report suspect GI bleed/hepatic congestion w/ cirrhosis) as suspected more CHF related BNP 365 CXR with cardiomegaly and evidence for CHF. Diuretics per nephrology recommendations, tx of anemia as outlined Supplemental O2 as needed to maintain sats Tx of anemia as outlined -- s/p 2u PRBC and MAYNOR x 2 doses, hgb stable Currently 94% on 2L oxymask Poor inspiratory effort Encouraged incentive spirometer use -- only to 200cc currently (4) Acute on chronic diastolic (congestive) heart failure: Plan: ECHO w/ LV systolic function normal. no regional wma, mild concentric LVH. EF 60-65%. Mild MR, mild TR. Cards consulted while inpatient Hx cirrhosis on lasix 40mg daily with 100mg spironolactone [place] Suspect peripheral edema also contributing from underlying cirrhosis/low albumin (albumin 2.4) -- no role for albumin currently however, urine na acceptable TSH wnl BNP 365 --> 124 on repeat this morning Diuresis as above, nephrology following and rec cont'd to hold aldactone (5) Abdominal pain: Plan: CT abdomenno clear acute findings though question of nonspecific colitis however could be congestion from her edema/liver cirrhosis. Hx abdominal surgery and laparotomy for adnexal mass August 2019 ?ischemic colitis/?hypotension prior w/ reports melena earlier in stay GI on consult, continue PPI BID -- per , patient to also be on Carafate, added to profile 09/05 No pain reported 09/05 or 09/06 but was slightly tender on the right side, suspect congestion of liver but LFTs improving and diuresis as above Working on bowel regimen given no BM in several days but does have bowel sounds. Added senna/docusate this morning, will given Dulcolax x 1 Check KUB this evening if no BM for eval will hold oral iron to prevent worsening constipation Continue to monitor (6) Pancytopenia: Plan: Hematology consulted; secondary to history of cirrhosis, splenomegaly, and autoimmune hemolytic anemia Suspected GI bleed causing acute worsening of her baseline anemia, in conjunction with her CKD patient given 2u prbc, MAYNOR 10,000 provided 08/30, 40,000 on 09/05 w/ plans for weekly w/ hematology in followup Reduced steroids to 10mg daily for 09/05 LFts/LDH improved and CBC stable compared to prior (7) GI bleed: Plan: On 08/29 nursing had reported dark stool with surrounding cameron blood; ct IV PPI, GI input appreciated Noted some question of hematuria but UA trace blood/no RBC, ?myopathy, no prior ck checked, 24 on 09/06 (8) Elevated troponin: Plan: Likely type II KS, demand ischemia; repeat trop earlier in week for reported CP cut in half from prior value, prior isosorbide which had been stopped due to soft BPs but no CP reported since resuming ASA 81mg continued prior, eliquis resumed for 09/05 Cards consulted during inpatient stay EKG c/ CP, none reported 09/06 (9) Controlled type 2 diabetes mellitus with neurologic complication, with long- term current use of insulin: Plan: endorgan damage including chronic kidney disease stage IV states with the steroids sugars had actually been a little lower at home Glu 52 AM 09/04 with some increased confusion/low appetite, pharmacy managing and adjustments made with improvement in BSGs DM educator consulted, rec reconnect at least 24 hours prior to d/c, reduce basal rate by 50%/loosen CF Monitor (10) Paroxysmal atrial fibrillation: Plan: Eliquis on hold since . NSR on monitor with PACs Restarted Eliquis 09/05, small nose bleed resolved with afrin x 1 and will need to continue to monitor for bleeding (11) Hepatic cirrhosis: Plan: Outpatient follow-up in this regard; not encephalopathic. Plt stable LFts improving Ammonia 46 Continues on lasix, but spironolactone on hold per nephrology (12) Hypothyroidism: Plan: TSH wnl April 2021, continue usual Synthroid dose. 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 LFTs improving, LDH further decreased on labs Titrated to 10mg prednisone daily for now, should complete course within week but will touch base with heme/onc Plan prolonged inpatient stay will eventually need rehab, encouraged participation with therapy working on diuresis as outlined Admission and Anticipated Discharge Date Admission Date: August 28, 2021 Supervising Physician Co-Signing Physician Notes PA Supervision Note: I did not personally see or examine the patient today, but I verified all lobato points of VICKY Breaux's assessment and plan with the following exceptions/additions: None Subjective Patient evaluated this morning. Still with complaints of significant weakness/fatigue. PT attempted to see but patient complaining of lightheadedness and will attempt this afternoon. Per discussion with Dr Rivera, held PM Lasix dose and would continue with 80mg daily for now to prevent worsening hypotension and believes patient to be intravascularly depleted. Continue to hold Aldactone as patient still having decent output. Patient denies fever/chills, states breathing is slightly labored but not with good inspiratory effort. Denies abdominal pain but mildly tender on examination, mostly right sided. Has some fresh blood to nares, states had small nose bleed this morning but no bleeding overnight. Depending on Cr stability/d/c to rehab for strengthing but if remains inpatient through weekend may need to push harder w/ diuretics or consider dialsysi to assist with pulling fluid off but wanting to hold off for now. Physical Exam Physical Exam: General: WD obese female laying in bed upon entry, NAD but O2 nasal cannula on forehead upon arrival, general pallor/fatigue HEENT: head normocephalic, mm slightly dry, trachea midline without deviation Resp: no cough, not tachypneic, lung sounds diminished in the bases with associated crackles, end expiratory wheezing, on 2L NC CV: RRR, +faint systolic murmur, no gallop, pitting edema to b/l UE 2+, b/l LE 3+ pedal edema, 2-3+ edema to level of the thighs (reported had legs hanging off bed earlier) GI: +BS, soft, +distended, +edema (decreased), nontender MSK/Neuro: follows commands, no focal deficit but generalized weakness, strength 1-2/5 throughout moves all extremities, generalized weakness, follows commands, no facial droop, CN intact grossly Skin: cool, dry Results & Data Results & Data ([facility]) Vital Signs (Past 12 Hours) Vital Signs Temp Pulse Pulse Resp BP Pulse Ox O2 Del Method 09/06/21 07:22 16 95 09/06/21 03:33 19 09/06/21 03:11 36.6 C 77 20 99/57 L 100 BiPAP 09/06/21 00:31 70 23 93 09/06/21 00:18 36.8 C 76 17 136/77 100 BiPAP 09/05/21 23:10 75 09/05/21 21:10 Oxymask 09/05/21 20:45 73 132/76 O2 Flow Rate 09/06/21 07:22 2 09/06/21 03:33 2 09/06/21 03:11 09/06/21 00:31 2 09/06/21 00:18 09/05/21 23:10 09/05/21 21:10 2 09/05/21 20:45 Laboratory Results 09/06/21 09/06/21 09/06/21 Range/Units 06:55 06:23 06:23 WBC (4.8-10.8) K/ul RBC (3.93-5.22) M/uL Hgb (12.0-16.0) g/dl Hct (34.1-44.9) % MCV (80.0-100.0) fL MCH (25.0-34.0) pg MCHC (32.0-36.0) g/dL RDW Std Deviation (36.4-46.3) fL RDW Coeff of Gomez (11.5-14.5) % Plt Count (130-400) K/uL MPV (9.4-12.3) fL Immature Gran % (Auto) % Neut % (Auto) % Lymph % (Auto) % [place] % (Auto) % Eos % (Auto) % Baso % (Auto) % Neut # (Auto) (1.4-6.5) K/uL Lymph # (Auto) (1.2-3.4) K/uL [place] # (Auto) (0.24-0.82) K/uL Eos # (Auto) (0-0.50) K/uL Baso # (Auto) (0-0.2) K/uL Immature Gran # (Auto) (0.00-0.02) K/uL Absolute Nucleated RBC (0-0) K/uL Nucleated RBC % (auto) % Polychromasia Tear Drop Cells Echinocytes PT 14.9 H (9.0-12.0) Seconds INR 1.4 H (0.9-1.1) Sodium (136-145) mmol/L Potassium (3.5-5.1) mmol/L Chloride (98-107) mmol/L Carbon Dioxide (21-32) mmol/L Anion Gap (3-11) BUN (6-23) mg/dl Creatinine (0.6-1.2) mg/dl Est Cr Clr Drug Dosing ml/min Est GFR ( Amer) ml/min Est GFR (Non-Af Amer) ml/min POC Glucose 141 H (70-99) mg/dl Fasting Glucose (70-99) mg/dl Calcium (8.5-10.1) mg/dl Phosphorus (2.5-4.9) mg/dl Magnesium (1.7-2.4) mg/dl Total Bilirubin (0.2-1.0) mg/dl AST (13-39) U/L ALT (7-52) U/L Alkaline Phosphatase (34-104) U/L Lactate Dehydrogenase 186 (86-244) U/L Total Creatine Kinase (26-192) U/L B-Natriuretic Peptide (0-100) pg/ml Total Protein (6.0-8.3) gm/dl Albumin (3.4-5.0) gm/dl Globulin (2.5-4.0) gm/dl Albumin/Globulin Ratio (0.9-2) TSH (0.300-4.500) uIu/ml Ur Random Sodium mmol/L 09/06/21 09/06/21 09/06/21 Range/Units 06:23 06:23 06:23 WBC 4.49 L (4.8-10.8) K/ul RBC 3.35 L (3.93-5.22) M/uL Hgb 9.7 L (12.0-16.0) g/dl Hct 30.5 L (34.1-44.9) % MCV 91.0 (80.0-100.0) fL MCH 29.0 (25.0-34.0) pg MCHC 31.8 L (32.0-36.0) g/dL RDW Std Deviation 63.7 H (36.4-46.3) fL RDW Coeff of Gomez 19.6 H (11.5-14.5) % Plt Count 87 L (130-400) K/uL MPV 11.5 (9.4-12.3) fL Immature Gran % (Auto) 2.9 % Neut % (Auto) 71.6 % Lymph % (Auto) 18.9 % [place] % (Auto) 6.2 % Eos % (Auto) 0.2 % Baso % (Auto) 0.2 % Neut # (Auto) 3.21 (1.4-6.5) K/uL Lymph # (Auto) 0.85 L (1.2-3.4) K/uL [place] # (Auto) 0.28 (0.24-0.82) K/uL Eos # (Auto) 0.01 (0-0.50) K/uL Baso # (Auto) 0.01 (0-0.2) K/uL Immature Gran # (Auto) 0.13 H (0.00-0.02) K/uL Absolute Nucleated RBC 0.07 H (0-0) K/uL Nucleated RBC % (auto) 1.6 % Polychromasia 1+ Tear Drop Cells 1+ Echinocytes 1+ PT (9.0-12.0) Seconds INR (0.9-1.1) Sodium 133 L (136-145) mmol/L Potassium 4.4 (3.5-5.1) mmol/L Chloride 94 L (98-107) mmol/L Carbon Dioxide 27 (21-32) mmol/L Anion Gap 12 H (3-11) BUN 85 H (6-23) mg/dl Creatinine 3.94 H (0.6-1.2) mg/dl Est Cr Clr Drug Dosing 14.1 ml/min Est GFR ( Amer) 12.6 ml/min Est GFR (Non-Af Amer) 10.9 ml/min POC Glucose (70-99) mg/dl Fasting Glucose 141 H (70-99) mg/dl Calcium 8.1 L (8.5-10.1) mg/dl Phosphorus 4.8 (2.5-4.9) mg/dl Magnesium 2.2 (1.7-2.4) mg/dl Total Bilirubin 1.5 H (0.2-1.0) mg/dl AST 27 (13-39) U/L ALT 50 (7-52) U/L Alkaline Phosphatase 133 H (34-104) U/L Lactate Dehydrogenase (86-244) U/L Total Creatine Kinase 24 L (26-192) U/L B-Natriuretic Peptide 124 H (0-100) pg/ml Total Protein 4.8 L (6.0-8.3) gm/dl Albumin 2.4 L (3.4-5.0) gm/dl Globulin 2.4 L (2.5-4.0) gm/dl Albumin/Globulin Ratio 1.0 (0.9-2) TSH (0.300-4.500) uIu/ml Ur Random Sodium mmol/L 09/06/21 09/05/21 09/05/21 Range/Units 00:33 20:41 16:00 WBC (4.8-10.8) K/ul RBC (3.93-5.22) M/uL Hgb (12.0-16.0) g/dl Hct (34.1-44.9) % MCV (80.0-100.0) fL MCH (25.0-34.0) pg MCHC (32.0-36.0) g/dL RDW Std Deviation (36.4-46.3) fL RDW Coeff of Gomez (11.5-14.5) % Plt Count (130-400) K/uL MPV (9.4-12.3) fL Immature Gran % (Auto) % Neut % (Auto) % Lymph % (Auto) % [place] % (Auto) % Eos % (Auto) % Baso % (Auto) % Neut # (Auto) (1.4-6.5) K/uL Lymph # (Auto) (1.2-3.4) K/uL [place] # (Auto) (0.24-0.82) K/uL Eos # (Auto) (0-0.50) K/uL Baso # (Auto) (0-0.2) K/uL Immature Gran # (Auto) (0.00-0.02) K/uL Absolute Nucleated RBC (0-0) K/uL Nucleated RBC % (auto) % Polychromasia Tear Drop Cells Echinocytes PT (9.0-12.0) Seconds INR (0.9-1.1) Sodium (136-145) mmol/L Potassium (3.5-5.1) mmol/L Chloride (98-107) mmol/L Carbon Dioxide (21-32) mmol/L Anion Gap (3-11) BUN (6-23) mg/dl Creatinine (0.6-1.2) mg/dl Est Cr Clr Drug Dosing ml/min Est GFR ( Amer) ml/min Est GFR (Non-Af Amer) ml/min POC Glucose 196 H 120 H (70-99) mg/dl Fasting Glucose (70-99) mg/dl Calcium (8.5-10.1) mg/dl Phosphorus (2.5-4.9) mg/dl Magnesium (1.7-2.4) mg/dl Total Bilirubin (0.2-1.0) mg/dl AST (13-39) U/L ALT (7-52) U/L Alkaline Phosphatase (34-104) U/L Lactate Dehydrogenase (86-244) U/L Total Creatine Kinase (26-192) U/L B-Natriuretic Peptide (0-100) pg/ml Total Protein (6.0-8.3) gm/dl Albumin (3.4-5.0) gm/dl Globulin (2.5-4.0) gm/dl Albumin/Globulin Ratio (0.9-2) TSH (0.300-4.500) uIu/ml Ur Random Sodium 45 mmol/L 09/05/21 09/05/21 Range/Units 11:13 09:33 WBC (4.8-10.8) K/ul RBC (3.93-5.22) M/uL Hgb (12.0-16.0) g/dl Hct (34.1-44.9) % MCV (80.0-100.0) fL MCH (25.0-34.0) pg MCHC (32.0-36.0) g/dL RDW Std Deviation (36.4-46.3) fL RDW Coeff of Gomez (11.5-14.5) % Plt Count (130-400) K/uL MPV (9.4-12.3) fL Immature Gran % (Auto) % Neut % (Auto) % Lymph % (Auto) % [place] % (Auto) % Eos % (Auto) % Baso % (Auto) % Neut # (Auto) (1.4-6.5) K/uL Lymph # (Auto) (1.2-3.4) K/uL [place] # (Auto) (0.24-0.82) K/uL Eos # (Auto) (0-0.50) K/uL Baso # (Auto) (0-0.2) K/uL Immature Gran # (Auto) (0.00-0.02) K/uL Absolute Nucleated RBC (0-0) K/uL Nucleated RBC % (auto) % Polychromasia Tear Drop Cells Echinocytes PT (9.0-12.0) Seconds INR (0.9-1.1) Sodium (136-145) mmol/L Potassium (3.5-5.1) mmol/L Chloride (98-107) mmol/L Carbon Dioxide (21-32) mmol/L Anion Gap (3-11) BUN (6-23) mg/dl Creatinine (0.6-1.2) mg/dl Est Cr Clr Drug Dosing ml/min Est GFR ( Amer) ml/min Est GFR (Non-Af Amer) ml/min POC Glucose 88 (70-99) mg/dl Fasting Glucose (70-99) mg/dl Calcium (8.5-10.1) mg/dl Phosphorus (2.5-4.9) mg/dl Magnesium (1.7-2.4) mg/dl Total Bilirubin (0.2-1.0) mg/dl AST (13-39) U/L ALT (7-52) U/L Alkaline Phosphatase (34-104) U/L Lactate Dehydrogenase (86-244) U/L Total Creatine Kinase (26-192) U/L B-Natriuretic Peptide (0-100) pg/ml Total Protein (6.0-8.3) gm/dl Albumin (3.4-5.0) gm/dl Globulin (2.5-4.0) gm/dl Albumin/Globulin Ratio (0.9-2) TSH 0.703 (0.300-4.500) uIu/ml Ur Random Sodium mmol/L Diagnostic Findings Venous Doppler Study 09/05/21 15:42 BILATERAL LOWER EXTREMITY VENOUS DOPPLER HISTORY: Lower extremity edema/calf pain off eliquis, r/o DVT COMPARISON STUDY: None. FINDINGS: There is normal compressibility, flow, and augmentation within the bilateral lower extremity deep venous systems. IMPRESSION: No DVT within the right or left lower extremity. ACT 112: Negative or not required by law. Electronically signed by: Oskar Walsh M.D. 09/06/2021 7:13 AM PG Care Time/CCT Total # of Minutes Spent Total Time Spent with Patient: Total time spent is greater than 50% in coordination of care (as documented) at patient's floor/unit and/or counseling patient: Coding Level of Care Code 77388 Subseq Hosp Care Lvl 3 Diagnoses CKD (chronic kidney disease) stage 5, GFR less than 15 ml/min N18.5 Autoimmune hemolytic anemia D59.10 Hypoxia R09.02 Acute on chronic diastolic (congestive) heart failure I50.33 Abdominal pain R10.9 Pancytopenia D61.818 GI bleed K92.2 Elevated troponin R77.8 Controlled type 2 diabetes mellitus with neurologic complication, with long-term current use of insulin E11.49; Z79.4 Paroxysmal atrial fibrillation I48.0 Hepatic cirrhosis K74.69 Hepatic cirrhosis type: other cirrhosis Hypothyroidism E03.9 Obstructive sleep apnea G47.33 Obesity, Class II, BMI 35-39.9 E66.9 Acute kidney injury superimposed on chronic kidney disease N17.9; N18.9 Acute diastolic (congestive) heart failure I50.31 Steroid-induced myopathy G72.0; T38.0X5A (1) Hepatic cirrhosis Hepatic cirrhosis type: other cirrhosis Qualified Code(s): K74.69 - Other cirrhosis of liver
[2021-09-06] MEDS: DOCUSATE SODIUM/SENNA 50/8.6MG TAB PO SCH (08:16)
[2021-09-06] MEDS: CALCIUM 600MG + VIT D 400 IU TAB PO SCH (08:17)
[2021-09-06] MEDS: predniSONE 10 MG TABLET PO SCH (08:17)
[2021-09-06] MEDS: PANTOprazole 40 MG TAB PO SCH ×2 (08:17→20:36)
[2021-09-06] MEDS: SERTRALINE HCL 100 MG TABLET PO SCH (08:17)
[2021-09-06] MEDS: ASPIRIN 81 MG ECTAB PO SCH (08:17)
[2021-09-06] MEDS: CYANOCOBALAMIN (B-12) 500 MCG TABLET PO SCH (08:17)
[2021-09-06] MEDS: ROSUVASTATIN CALCIUM 10 MG TAB PO SCH (08:17)
[2021-09-06] MEDS: FERROUS SULFATE 325 MG TAB PO SCH (08:17)
[2021-09-06] MEDS: FLUTICASONE/VILANTEROL 200/25MCG 14 PUFFS/INHALER INH SCH (08:18)
[2021-09-06] MEDS: UMECLIDINIUM BROMIDE 62.5MCG/BLISTER 7 PUFFS/INHALER INH SCH (08:18)
[2021-09-06] MEDS: SUCRALFATE 1 GM/10 ML UDC PO SCH ×4 (08:18→20:37)
[2021-09-06] MEDS: APIXABAN 5 MG TABLET PO SCH ×2 (08:18→20:33)
[2021-09-06] MEDS ORDERED: FAMOTIDINE 20 MG TAB PO SCH (09:00)
[2021-09-06] MEDS: INSULIN ASPART PER UNIT SC SCH ×4 (09:23→21:26)
[2021-09-06] MEDS: METOPROLOL SUCC 25MG EXT REL TAB PO SCH (09:56)
[2021-09-06] MEDS: ISOSORBIDE MONO EXTENDED REL 60 MG TABCR PO SCH (09:56)
[2021-09-06] MEDS: LANTUS PER UNIT CHARGE SQ SCH (10:09)
[2021-09-06] MEDS: FUROSEMIDE 80 MG TAB PO SCH (10:09)
[2021-09-06] MEDS ORDERED: OXYMETAZOLINE 0.05% 30 ML BTL NAE ONE (10:21)
--- NOTE | 2021-09-06 12:09 | Nephrology Progress Note ---
Date of Service September 06, 2021 Assessment & Plan (1) Acute kidney injury superimposed on chronic kidney disease: Plan: CRS. Predominately right heart failure with noted persistent third spacing. Decreased EAV. Non-oliguric. Maintaining reasonably negative fluid balance. Electrolytes acceptable. No emergent indication for dialysis. Goal is to maintain net negative fluid balance ~1 to 1.5 L/d. Furosemide 80 mg PO daily provided today. Document strict I/O's. Repeat metabolic profile tomorrow AM. Potential future indications for TAXATION CONSULTANT reviewed today. Permissive rise in creatinine with diuresis. Oral potassium replacement is being provided PRN. Continue to hold spironolactone. 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 Medications currently appropriately dosed for kidney dysfunction. (3) Hepatic cirrhosis: (4) Anemia: Plan: Management per hematology. (5) Acute diastolic (congestive) heart failure: Plan: Continued improvement noted. CXR reviewed this AM. Furosemide 80 mg PO daily. Admission and Anticipated Discharge Date Admission Date: August 28, 2021 Subjective No acute events overnight. No complaints this AM. Review of Systems Review of Systems: All systems reviewed & are unremarkable except as noted in HPI & below Constitutional: + fatigue and + weakness Physical Exam Constitutional: well developed and + morbidly obese; no acute distress Eyes: + anicteric sclerae; no corneal abnormality ENMT: Mouth: no oral mucosal abnormality and oral mucous membranes not dry Neck: normal visual inspection and trachea midline Respiratory: normal respiratory effort and + tachypneic Auscultation: + diminished lung sounds and + rales Cardiovascular: Rate/Rhythm: regular rate and + irregularly irregular Heart Sounds: normal S1 and normal S2 Extremities: + edema Musculoskeletal: Extremities: no cyanosis and no clubbing Skin: normal turgor and + turgor decreased; no lesions Neurologic: Motor/Sensory: no tremor and no asterixis Psychiatric: Orientation: alert and oriented x 3 Results & Data ([facility]) Vital Signs (Past 12 Hours) Vital Signs Temp Pulse Pulse Resp BP Pulse Ox O2 Del Method 09/06/21 11:25 36.3 C L 66 16 99/67 L 94 Nasal Cannula 09/06/21 11:27 71 09/06/21 11:23 Nasal Cannula 09/06/21 08:36 105/71 09/06/21 07:45 36.4 C L 70 22 90/55 L 91 BiPAP 09/06/21 07:22 16 95 09/06/21 03:33 19 09/06/21 03:11 36.6 C 77 20 99/57 L 100 BiPAP 09/06/21 00:31 70 23 93 09/06/21 00:18 36.8 C 76 17 136/77 100 BiPAP O2 Flow Rate 09/06/21 11:25 3 09/06/21 11:27 09/06/21 11:23 2 09/06/21 08:36 09/06/21 07:45 2 09/06/21 07:22 2 09/06/21 03:33 2 09/06/21 03:11 09/06/21 00:31 2 09/06/21 00:18 Laboratory Results Laboratory Results - last 24 hr 09/05/21 09/05/21 09/06/21 16:00 20:41 00:33 WBC RBC Hgb Hct MCV MCH MCHC RDW Std Deviation RDW Coeff of Gomez Plt Count MPV Immature Gran % (Auto) Neut % (Auto) Lymph % (Auto) [place] % (Auto) Eos % (Auto) Baso % (Auto) Neut # (Auto) Lymph # (Auto) [place] # (Auto) Eos # (Auto) Baso # (Auto) Immature Gran # (Auto) Absolute Nucleated RBC Nucleated RBC % (auto) Polychromasia Tear Drop Cells Echinocytes PT INR Sodium Potassium Chloride Carbon Dioxide Anion Gap BUN Creatinine Est Cr Clr Drug Dosing Est GFR ( Amer) Est GFR (Non-Af Amer) POC Glucose 120 H 196 H Fasting Glucose Calcium Phosphorus Magnesium Total Bilirubin AST ALT Alkaline Phosphatase Lactate Dehydrogenase Total Creatine Kinase B-Natriuretic Peptide Total Protein Albumin Globulin Albumin/Globulin Ratio Ur Random Sodium 45 09/06/21 09/06/21 09/06/21 06:23 06:23 06:23 WBC 4.49 L RBC 3.35 L Hgb 9.7 L Hct 30.5 L MCV 91.0 MCH 29.0 MCHC 31.8 L RDW Std Deviation 63.7 H RDW Coeff of Gomez 19.6 H Plt Count 87 L MPV 11.5 Immature Gran % (Auto) 2.9 Neut % (Auto) 71.6 Lymph % (Auto) 18.9 [place] % (Auto) 6.2 Eos % (Auto) 0.2 Baso % (Auto) 0.2 Neut # (Auto) 3.21 Lymph # (Auto) 0.85 L [place] # (Auto) 0.28 Eos # (Auto) 0.01 Baso # (Auto) 0.01 Immature Gran # (Auto) 0.13 H Absolute Nucleated RBC 0.07 H Nucleated RBC % (auto) 1.6 Polychromasia 1+ Tear Drop Cells 1+ Echinocytes 1+ PT INR Sodium 133 L Potassium 4.4 Chloride 94 L Carbon Dioxide 27 Anion Gap 12 H BUN 85 H Creatinine 3.94 H Est Cr Clr Drug Dosing 14.1 Est GFR ( Amer) 12.6 Est GFR (Non-Af Amer) 10.9 POC Glucose Fasting Glucose 141 H Calcium 8.1 L Phosphorus 4.8 Magnesium 2.2 Total Bilirubin 1.5 H AST 27 ALT 50 Alkaline Phosphatase 133 H Lactate Dehydrogenase Total Creatine Kinase 24 L B-Natriuretic Peptide 124 H Total Protein 4.8 L Albumin 2.4 L Globulin 2.4 L Albumin/Globulin Ratio 1.0 Ur Random Sodium 09/06/21 09/06/21 09/06/21 06:23 06:23 06:55 WBC RBC Hgb Hct MCV MCH MCHC RDW Std Deviation RDW Coeff of Gomez Plt Count MPV Immature Gran % (Auto) Neut % (Auto) Lymph % (Auto) [place] % (Auto) Eos % (Auto) Baso % (Auto) Neut # (Auto) Lymph # (Auto) [place] # (Auto) Eos # (Auto) Baso # (Auto) Immature Gran # (Auto) Absolute Nucleated RBC Nucleated RBC % (auto) Polychromasia Tear Drop Cells Echinocytes PT 14.9 H INR 1.4 H Sodium Potassium Chloride Carbon Dioxide Anion Gap BUN Creatinine Est Cr Clr Drug Dosing Est GFR ( Amer) Est GFR (Non-Af Amer) POC Glucose 141 H Fasting Glucose Calcium Phosphorus Magnesium Total Bilirubin AST ALT Alkaline Phosphatase Lactate Dehydrogenase 186 Total Creatine Kinase B-Natriuretic Peptide Total Protein Albumin Globulin Albumin/Globulin Ratio Ur Random Sodium 09/06/21 11:13 WBC RBC Hgb Hct MCV MCH MCHC RDW Std Deviation RDW Coeff of Gomez Plt Count MPV Immature Gran % (Auto) Neut % (Auto) Lymph % (Auto) [place] % (Auto) Eos % (Auto) Baso % (Auto) Neut # (Auto) Lymph # (Auto) [place] # (Auto) Eos # (Auto) Baso # (Auto) Immature Gran # (Auto) Absolute Nucleated RBC Nucleated RBC % (auto) Polychromasia Tear Drop Cells Echinocytes PT INR Sodium Potassium Chloride Carbon Dioxide Anion Gap BUN Creatinine Est Cr Clr Drug Dosing Est GFR ( Amer) Est GFR (Non-Af Amer) POC Glucose 153 H Fasting Glucose Calcium Phosphorus Magnesium Total Bilirubin AST ALT Alkaline Phosphatase Lactate Dehydrogenase Total Creatine Kinase B-Natriuretic Peptide Total Protein Albumin Globulin Albumin/Globulin Ratio Ur Random Sodium PG Care Time/CCT Total # of Minutes Spent Total Time Spent with Patient: Total time spent is greater than 50% in coordination of care (as documented) at patient's floor/unit and/or counseling patient: Coding Level of Care Code 29508 Subseq Hosp Care Lvl 3 Diagnoses Acute kidney injury superimposed on chronic kidney disease N17.9; N18.9 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
[2021-09-06] MEDS ORDERED: bisacodyL 5 MG TABEC PO ONE (17:00)
[2021-09-06] MEDS ORDERED: LACTULOSE SYRUP 20 GM/30 ML UDC PO ONE (18:00)
--- NOTE | 2021-09-06 18:13 | XRay Report ---
XR chest 1V portable, XR KUB/Abdomen 1 view HISTORY: 71 years-old Female f/u lower extremity patient with bibasilar opacities. COMPARISON: Chest radiograph 09/04/2021, CT abdomen and pelvis 09/01/2021. TECHNIQUE: AP view of the chest with KUB radiograph FINDINGS: CHEST: The cardiac silhouette is enlarged. Prior median sternotomy. A few wires are again noted to be fractu red. Pulmonary vascular congestion with reticular coarsening has not significantly changed. Trace ple ural effusions with mild bibasilar densities. Degenerative changes of the shoulders and spine. KUB: There is moderate fecal retention. Nonobstructive bowel gas pattern. Vascular calcifications. Nonobst ructive bowel gas pattern. Degenerative changes of the spine, pelvis and hips. IMPRESSION: 1. Cardiomegaly with pulmonary edema. 2. Trace pleural effusions with persistent bibasilar opacities. 3. Nonobstructive bowel gas pattern. 4. Moderate fecal retention. ACT 112: Negative or not required by law. The above report was generated using voice recognition software. It may contain grammatical, syntax o r spelling errors. Electronically signed by: Yuniel Parra M.D. 09/06/2021 6:11 PM
[2021-09-06] MEDS: METOPROLOL SUCC 50MG EXT REL TAB PO SCH (20:33)
[2021-09-06] MEDS: MONTELUKAST SODIUM 10 MG TABLET PO SCH (20:35)
[2021-09-07] MEDS ORDERED: OXYMETAZOLINE 0.05% 30 ML BTL ONE (05:16)
[2021-09-07] MEDS: LEVOTHYROXINE SODIUM 88 MCG TABLET PO SCH (05:30)
--- NOTE | 2021-09-07 07:22 | Hospitalist Progress Note ---
Date of Service September 07, 2021 Assessment & Plan (1) CKD (chronic kidney disease) stage 5, GFR less than 15 ml/min: Plan: Cardiorenal syndrome. Predominately R sided heart failure with noted persistent third spacing. Does appear to have a component of intravascular depletion, non-oliguric. Maintaining negative fluid balance -- Dr Rivera held evening dose 09/05 of lasix given intravascular depletion Cr 4.14 Planned on Lasix 80mg PO daily however given low BP/low UOP, nephrology placed lasix on hold and providing 500cc normosol IV and will monitor response given intravascular depletion . If continued issues over the weekend needing to consider TDC for dialysis next week Metoprolol also changed to 50mg BID and rates have been well controlled. Consider further reduction but will continue current dose for now Bowen to be placed for more accurate I&O given purewick leaking at times Renal dose meds/avoid nephrotoxic agents as able -- non essential medications placed on hold, others renally dosed BMP in AM (2) Autoimmune hemolytic anemia: Plan: Recent diagnosis, improving. Unclear as far as cause. Was at [facility] [place] and transfused 4u PRBC and does note 1/4 bottle bcx staph epidermidis but felt contaminent Heme/onc consulted, no identification as far as cause, but to continue course as outlined Previously was placed on methylprednisolone, converted to prednisone 100mg daily and became refractory to steroids, therefore started weekly rituximab x 4 doses on 08/01/21 Prednisone had been being tapered by 10mg weekly, was on 60mg ECONOMICS PROFESSOR and about to go to 40mg daily, but placed on 20mg daily on admit Discussed with Bessie Mei and changed to 10mg daily for 09/05 LDH further decreased Additional MAYNOR 40,000 for 09/05 and continue weekly with heme/onc in follow-up (3) Hypoxia: Plan: Multifactorial -- CHF, HRS, steroid induced myopathy and generalized weakness Likely has renal salt and water retention from steroid use for remote autoimmune hemolytic anemia reporting "legs giving out" ECONOMICS PROFESSOR Home regimen 40mg lasix/100mg spironolactone for fluid management in patient with hx cirrhosis. Of note, no O2 at home ECONOMICS PROFESSOR Abx since discontinued days prior (Ceftriaxone, Azithromycin (completed 5 doses dose) on admit, then added flagyl for possible GI bleed but based on report suspect GI bleed/hepatic congestion w/ cirrhosis) as suspected more CHF related BNP 365 --> 124 but with continued congestion Diuretics per nephrology recommendations, tx of anemia as outlined Encouraged use of IS but continues with weakness and poor effort Supplemental O2 as needed to maintain sats -- 2L oxymask for SpO2 94% 2 u PRBC and MAYNOR x 2 and hgb stable 10.4 (4) Acute on chronic diastolic (congestive) heart failure: Plan: ECHO w/ LV systolic function normal. no regional wma, mild concentric LVH. EF 60-65%. Mild MR, mild TR. Cards consulted while inpatient Hx cirrhosis on lasix 40mg daily with 100mg spironolactone ECONOMICS PROFESSOR Suspect peripheral edema also contributing from underlying cirrhosis/low albumin (albumin 2.4) -- no role for albumin currently however, urine na acceptable TSH wnl BNP 365 --> 124 on repeat this morning Diuresis as above, nephrology following and rec cont'd to hold aldactone Na improved to 133 on AM labs (5) Abdominal pain: Plan: CT abdomenno clear acute findings though question of nonspecific colitis however could be congestion from her edema/liver cirrhosis. Hx abdominal surgery and laparotomy for adnexal mass August 2019 ?ischemic colitis/?hypotension prior w/ reports melena earlier in stay GI on consult, continue PPI BID -- per , patient to also be on Carafate, added to profile 09/05 changed back to protonix IV BID given lethargy in AM and continued fatigue/inability to keep up with PO intake No pain reported 09/05 or 09/06 but was slightly tender on the right side, suspect congestion of liver but LFTs improving and diuresis as above Working on bowel regimen given no BM in several days but does have bowel sounds. Added senna/docusate this morning, will given Dulcolax x 1 Holding PO iron given constipation, KUB w/o obstruction. Ammonia wnl and again on repeat Lactulos x 1 on 09/06, repeat 09/07 given continued without BM since the and suspect also contributing to weakness (6) Pancytopenia: Plan: Hematology consulted; secondary to history of cirrhosis, splenomegaly, and autoimmune hemolytic anemia Suspected GI bleed causing acute worsening of her baseline anemia, in conjunction with her CKD patient given 2u prbc, MAYNOR 10,000 provided 08/30, 40,000 on 09/05 w/ plans for weekly w/ hematology in followup Reduced steroids to 10mg daily for 09/05 Plt 107, hgb improved from prior and WBC wnl on CBC and will continue to monitor (7) GI bleed: Plan: On 08/29 nursing had reported dark stool with surrounding cameron blood; ct IV PPI, GI input appreciated Noted some question of hematuria but UA trace blood/no RBC, ?myopathy, no prior ck checked, 24 on 09/06 (8) Elevated troponin: Plan: Likely type II GA, demand ischemia; repeat trop earlier in week for reported CP cut in half from prior value, prior isosorbide which had been stopped due to soft BPs but no CP reported since resuming ASA 81mg continued prior, eliquis resumed for 09/05 Cards consulted during inpatient stay EKG c/ CP, none reported subsequent days (9) Controlled type 2 diabetes mellitus with neurologic complication, with long- term current use of insulin: Plan: endorgan damage including chronic kidney disease stage IV states with the steroids sugars had actually been a little lower at home Glu 52 AM 09/04 with some increased confusion/low appetite, pharmacy managing and adjustments made/no further hypoglycemia DM educator consulted, rec reconnect at least 24 hours prior to d/c, reduce basal rate by 50%/loosen CF Held AM dose given poor PO intake and will consult nutrition for supplements Monitor (10) Paroxysmal atrial fibrillation: Plan: Eliquis on hold since . NSR on monitor with PACs Restarted Eliquis 09/05, small nose bleed resolved with afrin x 1 and small bleed self resolved overnight NSR w/ sinus arrhtymia on monitor (11) Hepatic cirrhosis: Plan: Outpatient follow-up in this regard; not encephalopathic. Plt stable LFts improving Ammonia 46 --> 31 on repeat to r/o encephalopathic causes Lasix on hold for today and getting 500cc Normosol, spironolactone remains on hold (12) Hypothyroidism: Plan: TSH wnl April 2021, continue usual Synthroid dose. 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 On BiPAP, states feeling very tired. Confused and lethargic this morning, but states she knows she is in the hospital currently. Nephrology providing 500cc to see about improvement in renal perfusion and ordered Bowen for more accurate I&Os. Patient with some improvement in mentation this afternoon, and son at bedside but able to visit with son at bedside. Patient to consider temporary dialysis if continued issues over the weekend. Breathing stable but remains on 2L oxymask. Not much of an appetite. No BM, discussed boost or alternative and she isn't very interested at this time. Review of Systems Review of Systems: All systems reviewed & are unremarkable except as noted in HPI & below Physical Exam Physical Exam: General: WD obese female laying in bed upon entry, NAD but considerably fatigued appearing, general pallor HEENT: head normocephalic, mm slightly dry, trachea midline without deviation Resp: no cough, not tachypneic, lung sounds diminished in the bases with associated crackles, end expiratory wheezing, on 2L NC CV: RRR, +faint systolic murmur, no gallop, pitting edema to b/l UE not much change, 2-3+ pitting edema to thighs GI: +BS, soft, +distended, +edema (decreased), mild fullness to liver, minimal tenderness MSK/Neuro: follows commands when able with exception to strength testing due to weakness, no focal deficit but generalized weakness, strength 1/5 throughout, no facial droop, CN intact grossly Skin: cool, dry Results & Data Results & Data ([facility]) Vital Signs (Past 12 Hours) Vital Signs Temp Pulse Pulse Resp BP Pulse Ox O2 Del Method 09/07/21 07:14 36.4 C L 87 16 115/69 97 BiPAP 09/07/21 04:02 36.9 C 68 12 97/61 L 95 BiPAP 09/07/21 03:56 19 09/06/21 23:52 37.1 C 85 14 102/64 97 BiPAP 09/06/21:57 75 09/06/21 22:50 Oxymask 09/06/21 22:41 24 97 O2 Flow Rate 09/07/21 07:14 09/07/21 04:02 09/07/21 03:56 2 09/06/21 23:52 09/06/21 22:57 09/06/21 22:50 2 09/06/21 22:41 2 Laboratory Results 09/07/21 09/07/21 09/07/21 Range/Units 12:09 11:19 10:57 WBC (4.8-10.8) K/ul RBC (3.93-5.22) M/uL Hgb (12.0-16.0) g/dl Hct (34.1-44.9) % MCV (80.0-100.0) fL MCH (25.0-34.0) pg MCHC (32.0-36.0) g/dL RDW Std Deviation (36.4-46.3) fL RDW Coeff of Gomez (11.5-14.5) % Plt Count (130-400) K/uL MPV (9.4-12.3) fL Absolute Nucleated RBC (0-0) K/uL Nucleated RBC % (auto) % Sodium (136-145) mmol/L Potassium (3.5-5.1) mmol/L Chloride (98-107) mmol/L Carbon Dioxide (21-32) mmol/L Anion Gap (3-11) BUN (6-23) mg/dl Creatinine (0.6-1.2) mg/dl Est Cr Clr Drug Dosing ml/min Est GFR ( Amer) ml/min Est GFR (Non-Af Amer) ml/min BUN/Creatinine Ratio (10-20) Glucose (70-99(Fasting)) mg/dl POC Glucose 159 H (70-99) mg/dl Calcium (8.5-10.1) mg/dl Magnesium (1.7-2.4) mg/dl Total Bilirubin (0.2-1.0) mg/dl AST (13-39) U/L ALT (7-52) U/L Alkaline Phosphatase (34-104) U/L Ammonia 31.0 (18-72) umol/L Total Protein (6.0-8.3) gm/dl Albumin (3.4-5.0) gm/dl Globulin (2.5-4.0) gm/dl Albumin/Globulin Ratio (0.9-2) Ur Random Sodium 58 mmol/L Anaplasma Smear Babesia Smear Babesia microti DNA PCR 09/07/21 09/07/21 09/07/21 Range/Units 07:20 07:20 07:20 WBC (4.8-10.8) K/ul RBC (3.93-5.22) M/uL Hgb (12.0-16.0) g/dl Hct (34.1-44.9) % MCV (80.0-100.0) fL MCH (25.0-34.0) pg MCHC (32.0-36.0) g/dL RDW Std Deviation (36.4-46.3) fL RDW Coeff of Gomez (11.5-14.5) % Plt Count (130-400) K/uL MPV (9.4-12.3) fL Absolute Nucleated RBC (0-0) K/uL Nucleated RBC % (auto) % Sodium 133 L (136-145) mmol/L Potassium 4.1 (3.5-5.1) mmol/L Chloride 94 L (98-107) mmol/L Carbon Dioxide 27 (21-32) mmol/L Anion Gap 12 H (3-11) BUN 94 H (6-23) mg/dl Creatinine 4.14 H (0.6-1.2) mg/dl Est Cr Clr Drug Dosing 13.3 ml/min Est GFR ( Amer) 11.9 ml/min Est GFR (Non-Af Amer) 10.2 ml/min BUN/Creatinine Ratio 22.7 H (10-20) Glucose 126 H (70-99(Fasting)) mg/dl POC Glucose (70-99) mg/dl Calcium 8.4 L (8.5-10.1) mg/dl Magnesium 2.3 (1.7-2.4) mg/dl Total Bilirubin 1.8 H (0.2-1.0) mg/dl AST 31 (13-39) U/L ALT 46 (7-52) U/L Alkaline Phosphatase 139 H (34-104) U/L Ammonia (18-72) umol/L Total Protein 4.9 L (6.0-8.3) gm/dl Albumin 2.5 L (3.4-5.0) gm/dl Globulin 2.4 L (2.5-4.0) gm/dl Albumin/Globulin Ratio 1.0 (0.9-2) Ur Random Sodium mmol/L Anaplasma Smear See Comment Babesia Smear See Comment Babesia microti DNA PCR Pending 09/07/21 09/07/21 09/06/21 Range/Units 07:20 07:16 20:01 WBC 5.59 (4.8-10.8) K/ul RBC 3.65 L (3.93-5.22) M/uL Hgb 10.4 L (12.0-16.0) g/dl Hct 33.0 L (34.1-44.9) % MCV 90.4 (80.0-100.0) fL MCH 28.5 (25.0-34.0) pg MCHC 31.5 L (32.0-36.0) g/dL RDW Std Deviation 63.1 H (36.4-46.3) fL RDW Coeff of Gomez 20.3 H (11.5-14.5) % Plt Count 107 L (130-400) K/uL MPV 12.1 (9.4-12.3) fL Absolute Nucleated RBC 0.08 H (0-0) K/uL Nucleated RBC % (auto) 1.4 % Sodium (136-145) mmol/L Potassium (3.5-5.1) mmol/L Chloride (98-107) mmol/L Carbon Dioxide (21-32) mmol/L Anion Gap (3-11) BUN (6-23) mg/dl Creatinine (0.6-1.2) mg/dl Est Cr Clr Drug Dosing ml/min Est GFR ( Amer) ml/min Est GFR (Non-Af Amer) ml/min BUN/Creatinine Ratio (10-20) Glucose (70-99(Fasting)) mg/dl POC Glucose 137 H 181 H (70-99) mg/dl Calcium (8.5-10.1) mg/dl Magnesium (1.7-2.4) mg/dl Total Bilirubin (0.2-1.0) mg/dl AST (13-39) U/L ALT (7-52) U/L Alkaline Phosphatase (34-104) U/L Ammonia (18-72) umol/L Total Protein (6.0-8.3) gm/dl Albumin (3.4-5.0) gm/dl Globulin (2.5-4.0) gm/dl Albumin/Globulin Ratio (0.9-2) Ur Random Sodium mmol/L Anaplasma Smear Babesia Smear Babesia microti DNA PCR 09/06/21 Range/Units 16:18 WBC (4.8-10.8) K/ul RBC (3.93-5.22) M/uL Hgb (12.0-16.0) g/dl Hct (34.1-44.9) % MCV (80.0-100.0) fL MCH (25.0-34.0) pg MCHC (32.0-36.0) g/dL RDW Std Deviation (36.4-46.3) fL RDW Coeff of Gomez (11.5-14.5) % Plt Count (130-400) K/uL MPV (9.4-12.3) fL Absolute Nucleated RBC (0-0) K/uL Nucleated RBC % (auto) % Sodium (136-145) mmol/L Potassium (3.5-5.1) mmol/L Chloride (98-107) mmol/L Carbon Dioxide (21-32) mmol/L Anion Gap (3-11) BUN (6-23) mg/dl Creatinine (0.6-1.2) mg/dl Est Cr Clr Drug Dosing ml/min Est GFR ( Amer) ml/min Est GFR (Non-Af Amer) ml/min BUN/Creatinine Ratio (10-20) Glucose (70-99(Fasting)) mg/dl POC Glucose 168 H (70-99) mg/dl Calcium (8.5-10.1) mg/dl Magnesium (1.7-2.4) mg/dl Total Bilirubin (0.2-1.0) mg/dl AST (13-39) U/L ALT (7-52) U/L Alkaline Phosphatase (34-104) U/L Ammonia (18-72) umol/L Total Protein (6.0-8.3) gm/dl Albumin (3.4-5.0) gm/dl Globulin (2.5-4.0) gm/dl Albumin/Globulin Ratio (0.9-2) Ur Random Sodium mmol/L Anaplasma Smear Babesia Smear Babesia microti DNA PCR Diagnostic Findings KUB X-Ray 09/06/21 16:34 XR chest 1V portable, XR KUB/Abdomen 1 view HISTORY: 71 years-old Female f/u lower extremity patient with bibasilar opacities. COMPARISON: Chest radiograph 09/04/2021, CT abdomen and pelvis 09/01/2021. TECHNIQUE: AP view of the chest with KUB radiograph FINDINGS: CHEST: The cardiac silhouette is enlarged. Prior median sternotomy. A few wires are again noted to be fractured. Pulmonary vascular congestion with reticular coarsening has not significantly changed. Trace pleural effusions with mild bibasilar densities. Degenerative changes of the shoulders and spine. KUB: There is moderate fecal retention. Nonobstructive bowel gas pattern. Vascular calcifications. Nonobstructive bowel gas pattern. Degenerative changes of the spine, pelvis and hips. IMPRESSION: 1. Cardiomegaly with pulmonary edema. 2. Trace pleural effusions with persistent bibasilar opacities. 3. Nonobstructive bowel gas pattern. 4. Moderate fecal retention. ACT 112: Negative or not required by law. The above report was generated using voice recognition software. It may contain grammatical, syntax or spelling errors. Electronically signed by: Yuniel Parra M.D. 09/06/2021 6:11 PM Chest X-Ray 09/06/21 16:48 XR chest 1V portable, XR KUB/Abdomen 1 view HISTORY: 71 years-old Female f/u lower extremity patient with bibasilar opacities. COMPARISON: Chest radiograph 09/04/2021, CT abdomen and pelvis 09/01/2021. TECHNIQUE: AP view of the chest with KUB radiograph FINDINGS: CHEST: The cardiac silhouette is enlarged. Prior median sternotomy. A few wires are again noted to be fractured. Pulmonary vascular congestion with reticular coarsening has not significantly changed. Trace pleural effusions with mild bibasilar densities. Degenerative changes of the shoulders and spine. KUB: There is moderate fecal retention. Nonobstructive bowel gas pattern. Vascular calcifications. Nonobstructive bowel gas pattern. Degenerative changes of the spine, pelvis and hips. IMPRESSION: 1. Cardiomegaly with pulmonary edema. 2. Trace pleural effusions with persistent bibasilar opacities. 3. Nonobstructive bowel gas pattern. 4. Moderate fecal retention. ACT 112: Negative or not required by law. The above report was generated using voice recognition software. It may contain grammatical, syntax or spelling errors. Electronically signed by: Yuniel Parra M.D. 09/06/2021 6:11 PM PG Care Time/CCT Total # of Minutes Spent Total Time Spent with Patient: Total time spent is greater than 50% in coordination of care (as documented) at patient's floor/unit and/or counseling patient: Coding Level of Care Code 42906 Subseq Hosp Care Lvl 3 Diagnoses CKD (chronic kidney disease) stage 5, GFR less than 15 ml/min N18.5 Autoimmune hemolytic anemia D59.10 Hypoxia R09.02 Acute on chronic diastolic (congestive) heart failure I50.33 Abdominal pain R10.9 Pancytopenia D61.818 GI bleed K92.2 Elevated troponin R77.8 Controlled type 2 diabetes mellitus with neurologic complication, with long-term current use of insulin E11.49; Z79.4 Paroxysmal atrial fibrillation I48.0 Hepatic cirrhosis K74.69 Hepatic cirrhosis type: other cirrhosis Hypothyroidism E03.9 Obstructive sleep apnea G47.33 Obesity, Class II, BMI 35-39.9 E66.9 Acute kidney injury superimposed on chronic kidney disease N17.9; N18.9 Acute diastolic (congestive) heart failure I50.31 Steroid-induced myopathy G72.0; T38.0X5A (1) Hepatic cirrhosis Hepatic cirrhosis type: other cirrhosis Qualified Code(s): K74.69 - Other cirrhosis of liver
[2021-09-07 07:55] LABS: Hemoglobin 10.4 g/dl (12.0-16.0); Mean Corpuscular Hemoglobin 28.5 pg (25.0-34.0); Mean Corpuscular Hgb Conc 31.5 g/dL (32.0-36.0); Mean Corpuscular Volume 90.4 fL (80.0-100.0); Mean Platelet Volume 12.1 fL (9.4-12.3); Nucleated RBC # (auto) 0.08 K/uL (0-0); Nucleated RBC % (auto) 1.4 %; Platelet Count 107 K/uL (130-400); RDW Coefficient of Variation 20.3 % (11.5-14.5); RDW Standard Deviation 63.1 fL (36.4-46.3); Red Blood Count 3.65 M/uL (3.93-5.22); White Blood Count 5.59 K/ul (4.8-10.8)
[2021-09-07 08:22] LABS: Albumin Level 2.5 gm/dl (3.4-5.0); BUN Creatinine Ratio 22.7 (10-20); Bilirubin,Total 1.8 mg/dl (0.2-1.0); Calcium 8.4 mg/dl (8.5-10.1); Creatinine Clr Calc Pharmacy 13.3 ml/min; Est GFR (African American) 11.9 ml/min; Est GFR (Non-African American) 10.2 ml/min; Globulin 2.4 gm/dl (2.5-4.0); Magnesium 2.3 mg/dl (1.7-2.4); Potassium 4.1 mmol/L (3.5-5.1); Total Protein 4.9 gm/dl (6.0-8.3)
[2021-09-07] MEDS: INSULIN ASPART PER UNIT SC SCH ×4 (08:29→20:21)
[2021-09-07] MEDS ORDERED: OXYMETAZOLINE 0.05% 30 ML BTL NAE ONE (08:45)
[2021-09-07] MEDS: LANTUS PER UNIT CHARGE SQ SCH (09:22)
[2021-09-07] MEDS ORDERED: NORMOSOL-R 500 ML IV ONE (10:36)
--- NOTE | 2021-09-07 10:36 | Nephrology Progress Note ---
Date of Service September 07, 2021 Assessment & Plan (1) Acute kidney injury superimposed on chronic kidney disease: Plan: CRS. Predominately right heart failure. Decreased EAV in setting of aggressive diuresis. Volume status improved. Some peripheral and dependent edema persists but Bili and creatinine rising, BP low. Furosemide held this AM. Will provide 500 ml IV normosol bolus to encourage urine output. Remains non-oliguric. Electrolytes acceptable. No emergent indication for dialysis. Goals of care have been continually reviewed with patient and her on a daily basis. If no improvement in kidney function over next 24-48 hours, I suspect she will require TDC early next week. Document strict I/O's. Bowen to be placed for accurate I/O's. Repeat metabolic profile tomorrow AM. Continue to hold spironolactone. 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 Goals of care reviewed with Nat and her . Extensive education provided. (3) Hepatic cirrhosis: Plan: Bili rising. Overall, prognosis is unfortunately poor. (4) Anemia: Plan: Management per hematology. H/H stable. Remains on weekly Epogen. (5) Acute diastolic (congestive) heart failure: Plan: Continued improvement noted. Hold diuretics and provide fluid challenge. Admission and Anticipated Discharge Date Admission Date: August 28, 2021 Subjective Nat was unfortunately more lethargic this AM. She was confused. No fevers. Den ied shortness of breath. Urine output dropping. No BM with lactulose yesterday. Appetite poor. Review of Systems Review of Systems: All systems reviewed & are unremarkable except as noted in HPI & below Physical Exam Constitutional: well developed and + morbidly obese; no acute distress Eyes: + anicteric sclerae; no corneal abnormality ENMT: Mouth: no oral mucosal abnormality and oral mucous membranes not dry Neck: normal visual inspection and trachea midline Respiratory: normal respiratory effort and + tachypneic Auscultation: + diminished lung sounds and + rales Cardiovascular: Rate/Rhythm: regular rate and + irregularly irregular Heart Sounds: normal S1 and normal S2 Extremities: + edema Musculoskeletal: Extremities: no cyanosis and no clubbing Skin: normal turgor and + turgor decreased; no lesions Neurologic: Motor/Sensory: no tremor and no asterixis Psychiatric: Orientation: alert and oriented x 3 Results & Data ([facility]) Vital Signs (Past 12 Hours) Vital Signs Temp Pulse Pulse Resp BP Pulse Ox O2 Del Method 09/07/21 07:14 36.4 C L 87 16 115/69 97 BiPAP 09/07/21 04:02 36.9 C 68 12 97/61 L 95 BiPAP 09/07/21 03:56 19 09/06/21 23:52 37.1 C 85 14 102/64 97 BiPAP 09/06/21 22:57 75 09/06/21 22:50 Oxymask 09/06/21 22:41 24 97 O2 Flow Rate 09/07/21 07:14 09/07/21 04:02 09/07/21 03:56 2 09/06/21 23:52 09/06/21 22:57 09/06/21 22:50 2 09/06/21 22:41 2 Laboratory Results Laboratory Results - last 24 hr 09/06/21 09/06/21 09/06/21 11:13 16:18 20:01 WBC RBC Hgb Hct MCV MCH MCHC RDW Std Deviation RDW Coeff of Gomez Plt Count MPV Absolute Nucleated RBC Nucleated RBC % (auto) Sodium Potassium Chloride Carbon Dioxide Anion Gap BUN Creatinine Est Cr Clr Drug Dosing Est GFR ( Amer) Est GFR (Non-Af Amer) BUN/Creatinine Ratio Glucose POC Glucose 153 H 168 H 181 H Calcium Magnesium Total Bilirubin AST ALT Alkaline Phosphatase Total Protein Albumin Globulin Albumin/Globulin Ratio Anaplasma Smear Babesia Smear Babesia microti DNA PCR 09/07/21 09/07/21 09/07/21 07:16 07:20 07:20 WBC 5.59 RBC 3.65 L Hgb 10.4 L Hct 33.0 L MCV 90.4 MCH 28.5 MCHC 31.5 L RDW Std Deviation 63.1 H RDW Coeff of Gomez 20.3 H Plt Count 107 L MPV 12.1 Absolute Nucleated RBC 0.08 H Nucleated RBC % (auto) 1.4 Sodium 133 L Potassium 4.1 Chloride 94 L Carbon Dioxide 27 Anion Gap 12 H BUN 94 H Creatinine 4.14 H Est Cr Clr Drug Dosing 13.3 Est GFR ( Amer) 11.9 Est GFR (Non-Af Amer) 10.2 BUN/Creatinine Ratio 22.7 H Glucose 126 H POC Glucose 137 H Calcium 8.4 L Magnesium 2.3 Total Bilirubin 1.8 H AST 31 ALT 46 Alkaline Phosphatase 139 H Total Protein 4.9 L Albumin 2.5 L Globulin 2.4 L Albumin/Globulin Ratio 1.0 Anaplasma Smear Babesia Smear Babesia microti DNA PCR 09/07/21 09/07/21 07:20 07:20 WBC RBC Hgb Hct MCV MCH MCHC RDW Std Deviation RDW Coeff of Gomez Plt Count MPV Absolute Nucleated RBC Nucleated RBC % (auto) Sodium Potassium Chloride Carbon Dioxide Anion Gap BUN Creatinine Est Cr Clr Drug Dosing Est GFR ( Amer) Est GFR (Non-Af Amer) BUN/Creatinine Ratio Glucose POC Glucose Calcium Magnesium Total Bilirubin AST ALT Alkaline Phosphatase Total Protein Albumin Globulin Albumin/Globulin Ratio Anaplasma Smear See Comment Babesia Smear See Comment Babesia microti DNA PCR Pending PG Care Time/CCT Total # of Minutes Spent Total Time Spent with Patient: Total time spent is greater than 50% in coordination of care (as documented) at patient's floor/unit and/or counseling patient: Coding Level of Care Code 15737 Subseq Hosp Care Lvl 3 Diagnoses Acute kidney injury superimposed on chronic kidney disease N17.9; N18.9 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
--- NOTE | 2021-09-07 10:54 | Pharmacy Report ---
Pharmacy Glycemic Short Note 2 - Date of Service September 07, 2021 - Glycemic Short BSG Results (Last 24 hours): 09/06/21 09/06/21 09/06/21 11:13 16:18 20:01 Glucose POC Glucose 153 H 168 H 181 H 09/07/21 09/07/21 07:16 07:20 Glucose 126 H POC Glucose 137 H OUTPATIENT ANTIDIABETIC REGIMEN: * Novolog insulin pump (omnipod) -- up to 230 units per day * HbA1c: unreliable in the setting of anemia with regular iron infusions ASSESSMENT: 09/07 * BSGs yesterday [phone] mg/dL * Patient received 27 untis of insulin yesterday (20 of basal, 7 of bolus) * Fasting today 137 mg/dL- will continue current lantus dose * Continues on prednisone 10 mg. BSGs stable, continue current novolog parameters. 09/05/21 * BSGs yesterday were [phone] mg/dL. * Patient received 31 units of insulin yesterday (25 units of basal and 6 units of bolus). * Fasting today is 89 mg/dL. * Planned to reduce Lantus by 20% today. Due to hypoglycemia episode yesterday, basal was reduced by ~50%. Fasting still below goal range so reduced by 20% to 20 units. Patient refused basal insulin today. * Loosen Novolog as prednisone reduced to 10 mg today. 09/04/21: * Pt had an episode of asymptomatic hypoglycemia this morning (BSG 52mg/dL). Lantus was reduced this morning and will not be given in the evening. * Novolog parameters loosened this afternoon in an additional effort to prevent further hypoglycemia. 09/03 * BSGs have been relatively stable. Pt remains on Prednisone 20mg PO daily. * No changes required at this time. 08/30 * Insulin pump trial did not go well overnight, multiple low BSGs observed overnight (34 mg/dL, 22 mg/dL, etc.) despite basal rate reduction * RN removed insulin pump after sustained lows observed * Will manage with SC basal/bolus while inpatient * Patient will likely require basal reduction in insulin pump - CDE consulted * Waited until upward BSG trend noted at lunchtime to give basal * Will leave sign out with second-shift pharmacist for possible tightening of Novolog 08/29 * Patient received 19 units of insulin yesterday once insulin pump removed * IV hydrocortisone changed to prednisone 20 mg PO daily only * Originally planned on continuing with SC basal/bolus insulin, but patient's brought insulin pump in from home and it was connected without informing staff. RN discovered insulin pump was connected as he was going to give lunchtime SC insulin doses. Discussed with hospitalist and will continue insulin pump for now. * In the past, patient has used temporary basal rates when needed - will continue to assess appropriateness of pump while inpatient 08/28 * Ms Kaur is a Type 2 diabetic female admitted with respiratory failure/pna. * She is normally managed on a Novolog pump. Pt was significantly hypoglycemic in the ED, so insulin pump was removed. Pt will be managed with SQ basal/bolus insulin during admission until it is appropriate to resume her pump. * Ms Kaur is ordered IV hydrocortisone and PO prednisone, which are likely to contribute to steroid-induced hyperglycemia. * Given patient's persistent hypoglycemia today, will initiate Novolog with conservative parameters and dose basal insulin this evening based on her BSG. * Will continue to follow and adjust as needed. PLAN FOR INPATIENT GLYCEMIC CONTROL: * Basal insulin * Lantus 20 units SQ qAM * Bolus insulin * Goal BSG Range: Low 110 mg/dL, High 140 mg/dL * Correction Factor: 18 mg/dL/unit * Carbohydrate ratio = 6 g/unit
[2021-09-07] MEDS: SUCRALFATE 1 GM/10 ML UDC PO SCH ×4 (11:30→20:34)
[2021-09-07] MEDS ORDERED: LACTULOSE SYRUP 20 GM/30 ML UDC PO SCH (14:00)
[2021-09-07] MEDS: CALCIUM 600MG + VIT D 400 IU TAB PO SCH (16:12)
[2021-09-07] MEDS: ASPIRIN 81 MG ECTAB PO SCH (16:12)
[2021-09-07] MEDS: APIXABAN 5 MG TABLET PO SCH ×2 (16:12→20:26)
[2021-09-07] MEDS: CYANOCOBALAMIN (B-12) 500 MCG TABLET PO SCH (16:12)
[2021-09-07] MEDS: DOCUSATE SODIUM/SENNA 50/8.6MG TAB PO SCH (16:12)
[2021-09-07] MEDS: FLUTICASONE/VILANTEROL 200/25MCG 14 PUFFS/INHALER INH SCH (16:12)
[2021-09-07] MEDS: UMECLIDINIUM BROMIDE 62.5MCG/BLISTER 7 PUFFS/INHALER INH SCH (16:13)
[2021-09-07] MEDS: ROSUVASTATIN CALCIUM 10 MG TAB PO SCH (16:13)
[2021-09-07] MEDS: METOPROLOL SUCC 50MG EXT REL TAB PO SCH ×2 (16:13→20:29)
[2021-09-07] MEDS: SERTRALINE HCL 100 MG TABLET PO SCH (16:13)
[2021-09-07] MEDS: predniSONE 10 MG TABLET PO SCH (16:13)
[2021-09-07] MEDS: PANTOprazole 40 MG TAB PO SCH (16:14)
[2021-09-07] MEDS ORDERED: bisacodyL 10 MG SUPP PR STA (16:22)
[2021-09-07] MEDS ORDERED: LACTULOSE 200GM/700ML WTR ENEMA PR ONE (16:48)
[2021-09-07] MEDS: LACTULOSE SYRUP 20 GM/30 ML UDC PO SCH (20:28)
[2021-09-07] MEDS: MONTELUKAST SODIUM 10 MG TABLET PO SCH (20:30)
[2021-09-07] MEDS: PANTOprazole 40 MG in SYRINGE 0 ML IV SCH (20:34)
[2021-09-08] MEDS: LEVOTHYROXINE SODIUM 88 MCG TABLET PO SCH (06:22)
--- NOTE | 2021-09-08 07:47 | Hospitalist Progress Note ---
Date of Service September 08, 2021 Assessment & Plan (1) CKD (chronic kidney disease) stage 5, GFR less than 15 ml/min: Plan: Cardiorenal syndrome. Predominately R sided heart failure with noted persistent third spacing. Does appear to have a component of intravascular depletion, non-oliguric. Maintaining negative fluid balance -- Dr Rivera held evening dose 09/05 of lasix given intravascular depletion Cr 4.14 on 09/07 and lasix placed on hold and provided fluid challenge with 500ml Normosol IV, Cr 3.96 Andrew placed 09/07 for accurate I&O, lower end UOP Holding further IVF for now to prevent worsening breathing but also continuing to hold lasix, encouraged PO intake Remains on reduced dose of metoprolol 50mg BID to prevent worsening hypotension, would not reduce further given elevated HR this morning although brief and not afib. suspected prior day underlying MAT earlier in the week Nephrology following, patient not wanting to consider HD, previously discussed. Consulted palliative medicine for Friday, possible home on hospice pending discussion Renal dose meds/avoid nephrotoxic agents as able -- non essential medications placed on hold, others renally dosed BMP in AM (2) Autoimmune hemolytic anemia: Plan: Recent diagnosis, improving. Was at [facility] and transfused 4u PRBC and does note 1/ bottle bcx staph epidermidis but felt contaminant Heme/onc consulted, no identification as far as cause, but to continue course as outlined Previously was placed on methylprednisolone, converted to prednisone 100mg daily and became refractory to steroids, therefore started weekly rituximab x 4 doses on 08/01/21 Prednisone had been being tapered by 10mg weekly, was on 60mg [employer]ENTER [employer] and about to go to 40mg daily, but placed on 20mg daily on admit Discussed with Bessie Mei and changed to 10mg daily for 09/05, d/c next week? LDH further decreased Additional MAYNOR 40,000 for 09/05 and continue weekly for now, but see above (3) Hypoxia: Plan: Multifactorial -- CHF, HRS, steroid induced myopathy and generalized weakness Likely has renal salt and water retention from steroid use for remote autoimmune hemolytic anemia reporting "legs giving out" [employer]ENTER [employer]GER Home regimen 40mg lasix/100mg spironolactone for fluid management in patient with hx cirrhosis. 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 Avoiding additional IVF as above 2 u PRBC and MAYNOR x 2 and hgb stable on repeat 10.4 (4) Acute on chronic diastolic (congestive) heart failure: Plan: ECHO w/ LV systolic function normal. no regional wma, mild concentric LVH. EF 60-65%. Mild MR, mild TR. Cards consulted while inpatient Hx cirrhosis on lasix 40mg daily with 100mg spironolactone CALL CENTER MA[employer]GER Suspect peripheral edema also contributing from underlying cirrhosis/low albumin (albumin 2.4) -- no role for albumin currently however, urine na acceptable TSH wnl BNP 365 --> 124 on repeat Diuresis on hold currently as above, and got 500cc normosol 09/07 Na 135 on am labs, discontinued fluid restriction given lack of PO intake and low UOP, encouraged PO intake Supplemental O2 as needed, will need arranged at d/c if planning hospice (5) Abdominal pain: Plan: CT abdomenno clear acute findings though question of nonspecific colitis however could be congestion from her edema/liver cirrhosis. Hx abdominal surgery and laparotomy for adnexal mass August 2019 Gallbladder UNREMARKABLE ?ischemic colitis/?hypotension prior w/ reports melena earlier in stay GI on consult, continue PPI BID -- per , patient to also be on Carafate, added to profile 09/05 changed back to protonix IV BID given lethargy in AM and continued fatigue/inability to keep up with PO intake No pain reported 09/05 or 09/06 but was slightly tender on the right side 09/07, suspect congestion of liver but LFTs improved *09/08 denied abdominal pain on exam +BM x2 overnight 09/07-09/08 and lactulose was increased to TID, will change to BID/titrate for BM daily given had been almost a week Ammonia stable on repeat x 3 without elevation given confusion days prior Holding PO iron given Hgb stable and prevent worsening constipation/abd pain Monitor (6) Pancytopenia: Plan: Hematology consulted; secondary to history of cirrhosis, splenomegaly, and autoimmune hemolytic anemia Suspected GI bleed causing acute worsening of her baseline anemia, in conjunction with her CKD patient given 2u prbc, MAYNOR 10,000 provided 08/30, 40,000 on 09/05 w/ plans for weekly w/ hematology in followup Reduced steroids to 10mg daily for 09/05 Plt 107, hgb improved from prior and WBC wnl on CBC and will continue to monitor (7) GI bleed: Plan: On 08/29 nursing had reported dark stool with surrounding cameron blood; ct IV PPI, GI input appreciated Noted some question of hematuria but UA trace blood/no RBC, ?myopathy, no prior ck checked, 24 on 09/06 (8) Elevated troponin: Plan: Likely type II DE, demand ischemia; repeat trop earlier in week for reported CP cut in half from prior value, prior isosorbide which had been stopped due to soft BPs but no CP reported since resuming ASA 81mg continued prior, eliquis resumed for 09/05 Cards consulted during inpatient stay EKG c/ CP, none reported subsequent days (9) Controlled type 2 diabetes mellitus with neurologic complication, with long- term current use of insulin: Plan: endorgan damage including chronic kidney disease stage IV states with the steroids sugars had actually been a little lower at home Glu 52 AM 09/04 with some increased confusion/low appetite DM educator consulted, rec reconnect at least 24 hours prior to d/c, reduce basal rate by 50%/loosen CF Held AM dose 09/07 given poor PO intake and continue current dose given is eating some today. pharmacy consulted and managing, no further hypoglycemia Monitor (10) Paroxysmal atrial fibrillation: Plan: Eliquis on hold since . NSR on monitor with PACs Restarted Eliquis 09/05, small nose bleed resolved with afrin x 1 and small bleed self resolved overnight NSR w/ sinus arrhtymia on monitor (11) Hepatic cirrhosis: Plan: Outpatient follow-up in this regard; not encephalopathic. Plt stable LFTs improving/stable Lasix/spironolactone on hold for progressive worsening Cr Ammonia 46 --> 31 on repeat to r/o encephalopathic causes day prior (12) Hypothyroidism: Plan: TSH wnl April 2021, continue usual Synthroid dose. 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 Possible home on hospice pending course/meeting friday Admission and Anticipated Discharge Date Admission Date: August 28, 2021 Supervising Physician Co-Signing Physician Notes PA Supervision Note: I did not personally see or examine the patient today, but I verified all lobato points of VICKY Breaux's assessment and plan with the following exceptions/additions: None Subjective Patient evaluated later this morning. More alert and awake this morning, took pills. UOP on low end but still present. Diuretics remain on hold. Patient took couple of bites of mashed potatoes today but still with not much of an appetite. Large BM last evening after suppository. Nat denies any chest pain, palpitations, breathing stable on 2L oxymask, denied abdominal pain at present, no nausea or need for medication. Discussed dialysis early next week possibly, she states she does not want this.Nephrology spoke with given prior conversations and would like palliative meeting for Friday arranged to discuss possibly taking Nat home on hospice given Nat initially declined wanting to be set up with hospice. Alerted palliative provider of consult to be aware for Friday. Review of Systems Review of Systems: All systems reviewed & are unremarkable except as noted in HPI & below Physical Exam Physical Exam: General: ill appearing female, generalized fatigue but improved from days prior and eating some mashed potatoes, NAD HEENT: pupils equal and reactive, trachea midline, mm slightly dry, dried blood to nares Resp: poor effort, no audible wheezing, diminished in the bases, on 2L Oxymask SpO2 94% CV: regular rate (PACs with possible MAT on monitor early this morning), 2+ edema to UE/LE bilaterally GI:+BS, +edema,+distended, nontender to light palpation/no guarding or rigidity : andrew with concentrated yellow urine Neuro/Psych: awake, alert to person, place, not month, follows commands as able due to generalized weakness throughout Skin: cool, dry, scattered ecchymosis from lab draws Results & Data Results & Data ([facility]) Vital Signs (Past 12 Hours) Vital Signs Temp Pulse Pulse Resp BP Pulse Ox O2 Del Method 09/08/21 04:50 37.1 C 78 16 97/64 L 97 CPAP 09/08/21 04:14 74 16 97 09/07/21 23:32 36.8 C 79 14 122/76 96 CPAP 09/07/21 23:25 81 09/07/21 22:36 19 98 09/07/21 21:22 Oxymask O2 Flow Rate 09/08/21 04:50 09/08/21 04:14 3 09/07/21 23:32 09/07/21 23:25 09/07/21 22:36 3 09/07/21 21:22 2 Laboratory Results 09/08/21 09/08/21 09/08/21 Range/Units 11:28 07:21 06:34 Sodium (136-145) mmol/L Potassium (3.5-5.1) mmol/L Chloride (98-107) mmol/L Carbon Dioxide (21-32) mmol/L Anion Gap (3-11) BUN (6-23) mg/dl Creatinine (0.6-1.2) mg/dl Est Cr Clr Drug Dosing ml/min Est GFR ( Amer) ml/min Est GFR (Non-Af Amer) ml/min BUN/Creatinine Ratio (10-20) Glucose (70-99(Fasting)) mg/dl POC Glucose 180 H 175 H (70-99) mg/dl Calcium (8.5-10.1) mg/dl Magnesium (1.7-2.4) mg/dl Total Bilirubin (0.2-1.0) mg/dl AST (13-39) U/L ALT (7-52) U/L Alkaline Phosphatase (34-104) U/L Total Protein (6.0-8.3) gm/dl Albumin (3.4-5.0) gm/dl Globulin (2.5-4.0) gm/dl Albumin/Globulin Ratio (0.9-2) Procalcitonin 1.14 H (0-0.5) ng/ml 09/08/21 09/07/21 09/07/21 Range/Units 06:34 20:11 16:27 Sodium 135 L (136-145) mmol/L Potassium 3.8 (3.5-5.1) mmol/L Chloride 95 L (98-107) mmol/L Carbon Dioxide 27 (21-32) mmol/L Anion Gap 13 H (3-11) BUN 94 H (6-23) mg/dl Creatinine 3.96 H (0.6-1.2) mg/dl Est Cr Clr Drug Dosing 13.8 ml/min Est GFR ( Amer) 12.5 ml/min Est GFR (Non-Af Amer) 10.8 ml/min BUN/Creatinine Ratio 23.7 H (10-20) Glucose 145 H (70-99(Fasting)) mg/dl POC Glucose 153 H 174 H (70-99) mg/dl Calcium 8.3 L (8.5-10.1) mg/dl Magnesium 2.3 (1.7-2.4) mg/dl Total Bilirubin 1.8 H (0.2-1.0) mg/dl AST 25 (13-39) U/L ALT 37 (7-52) U/L Alkaline Phosphatase 128 H (34-104) U/L Total Protein 4.7 L (6.0-8.3) gm/dl Albumin 2.4 L (3.4-5.0) gm/dl Globulin 2.3 L (2.5-4.0) gm/dl Albumin/Globulin Ratio 1.0 (0.9-2) Procalcitonin (0-0.5) ng/ml PG Care Time/CCT Total # of Minutes Spent Total Time Spent with Patient: Total time spent is greater than 50% in coordination of care (as documented) at patient's floor/unit and/or counseling patient: Coding Level of Care Code 39767 Subseq Hosp Care Lvl 2 Diagnoses CKD (chronic kidney disease) stage 5, GFR less than 15 ml/min N18.5 Autoimmune hemolytic anemia D59.10 Hypoxia R09.02 Acute on chronic diastolic (congestive) heart failure I50.33 Abdominal pain R10.9 Pancytopenia D61.818 GI bleed K92.2 Elevated troponin R77.8 Controlled type 2 diabetes mellitus with neurologic complication, with long-term current use of insulin E11.49; Z79.4 Paroxysmal atrial fibrillation I48.0 Hepatic cirrhosis K74.69 Hepatic cirrhosis type: other cirrhosis Hypothyroidism E03.9 Obstructive sleep apnea G47.33 Obesity, Class II, BMI 35-39.9 E66.9 Acute kidney injury superimposed on chronic kidney disease N17.9; N18.9 Acute diastolic (congestive) heart failure I50.31 Steroid-induced myopathy G72.0; T38.0X5A (1) Hepatic cirrhosis Hepatic cirrhosis type: other cirrhosis Qualified Code(s): K74.69 - Other cirrhosis of liver
[2021-09-08 08:03] LABS: Albumin Level 2.4 gm/dl (3.4-5.0); BUN Creatinine Ratio 23.7 (10-20); Bilirubin,Total 1.8 mg/dl (0.2-1.0); Calcium 8.3 mg/dl (8.5-10.1); Creatinine Clr Calc Pharmacy 13.8 ml/min; Est GFR (African American) 12.5 ml/min; Est GFR (Non-African American) 10.8 ml/min; Globulin 2.3 gm/dl (2.5-4.0); Magnesium 2.3 mg/dl (1.7-2.4); Potassium 3.8 mmol/L (3.5-5.1); Total Protein 4.7 gm/dl (6.0-8.3)
[2021-09-08] MEDS: ROSUVASTATIN CALCIUM 10 MG TAB PO SCH (08:12)
[2021-09-08] MEDS: DOCUSATE SODIUM/SENNA 50/8.6MG TAB PO SCH (08:12)
[2021-09-08] MEDS: predniSONE 10 MG TABLET PO SCH (08:12)
[2021-09-08] MEDS: SUCRALFATE 1 GM/10 ML UDC PO SCH ×4 (08:12→20:15)
[2021-09-08] MEDS: METOPROLOL SUCC 50MG EXT REL TAB PO SCH ×2 (08:13→20:12)
[2021-09-08] MEDS: CALCIUM 600MG + VIT D 400 IU TAB PO SCH (08:13)
[2021-09-08] MEDS: SERTRALINE HCL 100 MG TABLET PO SCH (08:13)
[2021-09-08] MEDS: APIXABAN 5 MG TABLET PO SCH ×2 (08:13→20:11)
[2021-09-08] MEDS: ASPIRIN 81 MG ECTAB PO SCH (08:14)
[2021-09-08] MEDS: CYANOCOBALAMIN (B-12) 500 MCG TABLET PO SCH (08:14)
[2021-09-08] MEDS: PANTOprazole 40 MG in SYRINGE 0 ML IV SCH (08:15)
[2021-09-08] MEDS: LACTULOSE SYRUP 20 GM/30 ML UDC PO SCH ×3 (08:16→20:12)
[2021-09-08] MEDS: UMECLIDINIUM BROMIDE 62.5MCG/BLISTER 7 PUFFS/INHALER INH SCH (08:17)
[2021-09-08] MEDS: FLUTICASONE/VILANTEROL 200/25MCG 14 PUFFS/INHALER INH SCH (08:17)
[2021-09-08] MEDS: INSULIN ASPART PER UNIT SC SCH ×4 (08:28→21:13)
[2021-09-08] MEDS: LANTUS PER UNIT CHARGE SQ SCH (08:29)
--- NOTE | 2021-09-08 08:49 | Nephrology Progress Note ---
Date of Service September 08, 2021 Assessment & Plan (1) Acute kidney injury superimposed on chronic kidney disease: Plan: * CRS. Predominately right heart failure * Kidney function is mildly improved following IV fluid but patient has significant 3rd spacing w/ ascites and dependent edema * Discussed [employer] with Mrs. Kaur today. She does not wish to start dialysis. She is receptive to Palliative Care consultation to discuss hospice. Mrs. Kaur requested that I speak with her . 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 Goals of care reviewed with Nat and her . They do not wish to pursue dialysis. They do request consultation w/ Palliative Care to set up home hospice (3) Hepatic cirrhosis: Plan: * Elevated bilirubin, poor prognosis (4) Anemia: Plan: * Management per hematology. H/H stable. Remains on weekly Epogen. (5) Acute diastolic (congestive) heart failure: Admission and Anticipated Discharge Date Admission Date: August 28, 2021 Subjective Mrs. Kaur was evaluated in her hospital room this morning. She awakened to voice and was oriented to self and place. She was breathing comfortably on O2 at 2 L/min face mask. She denied angina or uremic symptoms Review of Systems Constitutional: no fever Eyes: no problem reported Ear, Nose, Mouth, Throat: no problem reported Respiratory: no dyspnea Cardiovascular: no chest pain Gastrointestinal: no abdominal pain and no diarrhea/loose stools Physical Exam Constitutional: + ill appearing; not in distress Eyes: PERRL, conjunctivae normal, anicteric sclerae Neck: trachea midline, no thyromegaly Respiratory: normal respiratory effort, lungs clear to auscultation Cardiovascular: Rate/Rhythm: regular rate and regular rhythm Extremities: + edema (2+ dependent edema of the arms and legs) Gastrointestinal (Abdomen): Inspection/Auscultation: + abdomen distended and + hypoactive bowel sounds Percussion/Palpation: abdomen nontender and no guarding Results & [facility] ([facility]) Vital Signs (Past 12 Hours) Vital Signs Temp Pulse Pulse Resp BP Pulse Ox O2 Del Method 09/08/21 07:35 36.5 C 84 18 107/55 L 90 Room Air 09/08/21 04:50 37.1 C 78 16 97/64 L 97 CPAP 09/08/21 04:14 74 16 97 09/07/21 23:32 36.8 C 79 14 122/76 96 CPAP 09/07/21 23:25 81 09/07/21 22:36 19 98 09/07/21 21:22 Oxymask O2 Flow Rate 09/08/21 07:35 09/08/21 04:50 09/08/21 04:14 3 09/07/21 23:32 09/07/21 23:25 09/07/21 22:36 3 09/07/21 21:22 2 Laboratory Results Laboratory Tests 09/07/21 09/08/21 07:20 06:34 Sodium 135 L Potassium 3.8 Chloride 95 L Carbon Dioxide 27 BUN 94 H Creatinine 3.96 H Glucose 145 H Calcium 8.3 L Total Bilirubin 1.8 H 1.8 H AST 25 ALT 37 Alkaline Phosphatase 128 H Albumin 2.4 L PG Care Time/CCT Total # of Minutes Spent Total Time Spent with Patient: Total time spent is greater than 50% in coordination of care (as documented) at patient's floor/unit and/or counseling patient: Coding Level of Care Code 57822 Subseq Hosp Care Lvl 3 Diagnoses Acute kidney injury superimposed on chronic kidney disease N17.9; N18.9 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
[2021-09-08] MEDS: MONTELUKAST SODIUM 10 MG TABLET PO SCH (20:13)
[2021-09-08] MEDS: PANTOprazole 40 MG TAB PO SCH (21:15)
[2021-09-09] MEDS: LEVOTHYROXINE SODIUM 88 MCG TABLET PO SCH (05:45)
[2021-09-09 07:25] LABS: Hematocrit (blood only) 30.1 % (34.1-44.9); Hemoglobin 9.5 g/dl (12.0-16.0); Mean Corpuscular Hemoglobin 29.1 pg (25.0-34.0); Mean Corpuscular Hgb Conc 31.6 g/dL (32.0-36.0); Mean Corpuscular Volume 92.3 fL (80.0-100.0); Mean Platelet Volume 11.9 fL (9.4-12.3); Nucleated RBC # (auto) 0.09 K/uL (0-0); Nucleated RBC % (auto) 1.7 %; Platelet Count 101 K/uL (130-400); RDW Coefficient of Variation 20.9 % (11.5-14.5); RDW Standard Deviation 64.1 fL (36.4-46.3); Red Blood Count 3.26 M/uL (3.93-5.22); White Blood Count 5.28 K/ul (4.8-10.8)
[2021-09-09 07:51] LABS: BUN Creatinine Ratio 25.6 (10-20); Calcium 8.3 mg/dl (8.5-10.1); Creatinine Clr Calc Pharmacy 13.8 ml/min; Est GFR (African American) 12.6 ml/min; Est GFR (Non-African American) 10.9 ml/min; Potassium 3.4 mmol/L (3.5-5.1)
--- NOTE | 2021-09-09 08:13 | Hospitalist Progress Note ---
Date of Service September 09, 2021 Assessment & Plan (1) CKD (chronic kidney disease) stage 5, GFR less than 15 ml/min: Plan: Cardiorenal syndrome. Predominately R sided heart failure with noted persistent third spacing. Nephrology following Does appear to have a component of intravascular depletion, non-oliguric. Maintaining negative fluid balance -- Dr Rivera held evening dose 09/05 of lasix given intravascular depletion Cr 4.14 on 09/07 and Lasix placed on hold and provided fluid challenge with 500ml Normosol IV, Cr remains elevated 3.94 Andrew placed 09/07 for accurate I&O, lower end UOP and encouraged PO K 3.4, unable to tolerate PO and ordered IV Remains on reduced dose of metoprolol 50mg BID to prevent worsening hypotension, would not reduce further given elevated HR this morning although brief and not afib. suspected prior day underlying MAT earlier in the week Not wanting to consider HD, previously discussed and again voices no HD Non-essential medications placed on hold Palliative consulted, messaged Dr Pavon, meeting hopefully for tomorrow and requ est family be called in AM to set up time (2) Autoimmune hemolytic anemia: Plan: Recent diagnosis, improving. Was at [facility] and transfused 4u PRBC and does note / bottle bcx staph epidermidis but felt contaminant Heme/onc consulted, no identification as far as cause, but to continue course as outlined Previously was placed on methylprednisolone, converted to prednisone 100mg daily and became refractory to steroids, therefore started weekly rituximab x 4 doses on 08/01/21 Prednisone had been being tapered by 10mg weekly, was on 60mg ENVIRONMENTAL COMPLIANCE TECHNICIAN and about to go to 40mg daily, but placed on 20mg daily on admit Discussed with Bessie Mei and changed to 10mg daily for 09/05, d/c next week? LDH further decreased Additional MAYNOR 40,000 for 09/05 and continue weekly for now, but see above (3) Hypoxia: Plan: Multifactorial -- CHF, HRS, steroid induced myopathy and generalized weakness Likely has renal salt and water retention from steroid use for remote autoimmune hemolytic anemia reporting "legs giving out" ENVIRONMENTAL COMPLIANCE TECHNICIAN Home regimen 40mg lasix/100mg spironolactone for fluid management in patient with hx cirrhosis. Of note, not on O2 at home ENVIRONMENTAL COMPLIANCE TECHNICIAN reported Abx since discontinued days prior (Ceftriaxone, Azithromycin (completed 5 doses dose) on admit, then added flagyl for possible GI bleed but based on report suspect GI bleed/hepatic congestion w/ cirrhosis) as suspected more CHF related BNP 365 --> 124 but with continued congestion Diuretics per nephrology recommendations, tx of anemia as outlined Encouraged use of IS but continues with weakness and poor effort Supplemental O2 as needed to maintain sats -- 2L oxymask for SpO2 94 and remains stable on 2L. Avoiding additional IVF as above 2 u PRBC and MAYNOR x 2 and hgb stable on repeat (4) Acute on chronic diastolic (congestive) heart failure: Plan: ECHO w/ LV systolic function normal. no regional wma, mild concentric LVH. EF 60-65%. Mild MR, mild TR. Cards consulted while inpatient Hx cirrhosis on lasix 40mg daily with 100mg spironolactone ENVIRONMENTAL COMPLIANCE TECHNICIAN Suspect peripheral edema also contributing from underlying cirrhosis/low albumin (albumin 2.4) -- no role for albumin currently however, urine na acceptable TSH wnl BNP 365 --> 124 on repeat Diuresis on hold currently as above, and got 500cc normosol 09/07 Na 137, removed fluid restriction and encouraged PO Supplemental O2 as needed, will need arranged at d/c if planning hospice (5) Abdominal pain: Plan: CT abdomenno clear acute findings though question of nonspecific colitis however could be congestion from her edema/liver cirrhosis. Hx abdominal surgery and laparotomy for adnexal mass August 2019 Gallbladder UNREMARKABLE ?ischemic colitis/?hypotension prior w/ reports melena earlier in stay GI on consult, continue PPI BID -- per , patient to also be on Carafate, added to profile 09/05 changed back to protonix IV BID given lethargy in AM and continued fatigue/inability to keep up with PO intake No pain reported 09/05 or 09/06 but was slightly tender on the right side 09/07, suspect congestion of liver but LFTs improved *09/08 denied abdominal pain on exam +BM x2 overnight 09/07-09/08 and lactulose was increased to TID, will change to BID/titrate for BM daily given had been almost a week. PO as tolerated, enema if patient agreeable/worsened pain/without further BM Ammonia stable on repeat x 3 without elevation given confusion days prior Holding PO iron given Hgb stable and prevent worsening constipation/abd pain Monitor (6) Pancytopenia: Plan: Hematology consulted; secondary to history of cirrhosis, splenomegaly, and autoimmune hemolytic anemia Suspected GI bleed causing acute worsening of her baseline anemia, in conjunction with her CKD patient given 2u prbc, MAYNOR 10,000 provided 08/30, 40,000 on 09/05 w/ plans for weekly w/ hematology in followup Reduced steroids to 10mg daily for 09/05 Plt 101, hgb improved from prior and WBC wnl on CBC and will continue to monitor (7) GI bleed: Plan: On 08/29 nursing had reported dark stool with surrounding cameron blood; ct IV PPI, GI input appreciated Noted some question of hematuria but UA trace blood/no RBC, ?myopathy, no prior ck checked, 24 on 09/06 (8) Elevated troponin: Plan: Likely type II [place], demand ischemia; repeat trop earlier in week for reported CP cut in half from prior value, prior isosorbide which had been stopped due to soft BPs but no CP reported since resuming ASA 81mg continued prior, eliquis resumed for 09/05 Cards consulted during inpatient stay EKG c/ CP, none reported subsequent days, just nausea (9) Controlled type 2 diabetes mellitus with neurologic complication, with long- term current use of insulin: Plan: endorgan damage including chronic kidney disease stage IV states with the steroids sugars had actually been a little lower at home Glu 52 AM 09/04 with some increased confusion/low appetite DM educator consulted, rec reconnect at least 24 hours prior to d/c, reduce basal rate by 50%/loosen CF Held AM dose 09/07 given poor PO intake and continue current dose given is eating some today. pharmacy consulted and managing, no further hypoglycemia HOlding AM dose 09/09 given lack PO/poor PO Monitor (10) Paroxysmal atrial fibrillation: Plan: Eliquis on hold since . NSR on monitor with PACs Restarted Eliquis 09/05, small nose bleed resolved with afrin x 1 and small bleed self resolved overnight NSR w/ sinus arrhtymia on monitor (11) Hepatic cirrhosis: Plan: Outpatient follow-up in this regard; not encephalopathic. Plt stable LFTs improving/stable Lasix/spironolactone on hold for progressive worsening Cr Ammonia 46 --> 31 on repeat to r/o encephalopathic causes day prior (12) Hypothyroidism: Plan: TSH wnl April 2021, continue usual Synthroid dose. 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 CM to follow Admission and Anticipated Discharge Date Admission Date: August 28, 2021 Supervising Physician Co-Signing Physician Notes VICKY Supervision Note: I did not personally see or examine the patient today, but I verified all lobato points of VICKY Breaux's assessment and plan with the following exceptions/additions: None Subjective Patient evaluated this morning. Got cleaned up by staff, back hurting and improved with tylenol, no pain reported to myself. Took some pills but states hopefully done with those for the day and not wanting to take more. Still does not want HD. UOP poor. No chest pain, breathing stable on 2L oxymask and only dropping mainly when sleeping. Denies abdominal pain but still poor appetite. Did take some bites of breakfast and had some of supper. Disheartened and support provided. Discussed reaching out to and son today for meeting for tomorrow as previously discussed. Patient agreeable. Talked with Tony and son by telephone. Understanding and son planning to visit this afternoon, would like meeting tomorrow. Discussed updated palliative provider and will ask her to call them to see what time works best for meeting. Review of Systems Review of Systems: All systems reviewed & are unremarkable except as noted in HPI & below Physical Exam Physical Exam: General: ill appearing female, generalized fatigue but stable from days prior, sitting up in bed, 2L Oxymask and breathing without distress HEENT: dried blood to nares, mm slightly dry Resp: not tachypneic, no cough, poor inspiratory effort, diminshed in the bases, breathing comfortably on 2L Oxymask CV: regular rate (PACs on monitor), 2+ pitting edema bilateral upper and lower extremities, cool to touch, pulses palpable GI: +BS, ascites/edema, nontender : andrew draining low amount of clear yellow urine Psych/Neuro/Msk: alert to person/place/month, knows in the hospital,cooperative Skin: cool, dry, scattered ecchymosis from lab draws Results & Data Results & [facility]) Vital Signs (Past 12 Hours) Vital Signs Temp Pulse Pulse Resp BP BP Pulse Ox 09/09/21 07:17 36.7 C 66 19 95/63 L 95 09/09/21 03:42 36.7 C 59 L 14 96/54 L 93 09/08/21 22:48 36.9 C 69 16 100/68 96 09/08/21 22:44 65 09/08/21 22:33 O2 Del Method O2 Flow Rate 09/09/21 07:17 Oxymask 2 09/09/21 03:42 Oxymask 2 09/08/21 22:48 Oxymask 2 09/08/21 22:44 09/08/21 22:33 Oxymask 2 Laboratory Results 09/09/21 09/09/21 09/09/21 Range/Units 07:13 07:01 07:01 WBC 5.28 (4.8-10.8) K/ul RBC 3.26 L (3.93-5.22) M/uL Hgb 9.5 L (12.0-16.0) g/dl Hct 30.1 L (34.1-44.9) % MCV 92.3 (80.0-100.0) fL MCH 29.1 (25.0-34.0) pg MCHC 31.6 L (32.0-36.0) g/dL RDW Std Deviation 64.1 H (36.4-46.3) fL RDW Coeff of Gomez 20.9 H (11.5-14.5) % Plt Count 101 L (130-400) K/uL MPV 11.9 (9.4-12.3) fL Absolute Nucleated RBC 0.09 H (0-0) K/uL Nucleated RBC % (auto) 1.7 % Sodium 137 (136-145) mmol/L Potassium 3.4 L (3.5-5.1) mmol/L Chloride 98 (98-107) mmol/L Carbon Dioxide 27 (21-32) mmol/L Anion Gap 12 H (3-11) BUN 101 H (6-23) mg/dl Creatinine 3.94 H (0.6-1.2) mg/dl Est Cr Clr Drug Dosing 13.8 ml/min Est GFR ( Amer) 12.6 ml/min Est GFR (Non-Af Amer) 10.9 ml/min BUN/Creatinine Ratio 25.6 H (10-20) Glucose 121 H (70-99(Fasting)) mg/dl POC Glucose 126 H (70-99) mg/dl Calcium 8.3 L (8.5-10.1) mg/dl Procalcitonin (0-0.5) ng/ml 09/08/21 09/08/21 09/08/21 Range/Units 20:22 16:31 11:28 WBC (4.8-10.8) K/ul RBC (3.93-5.22) M/uL Hgb (12.0-16.0) g/dl Hct (34.1-44.9) % MCV (80.0-100.0) fL MCH (25.0-34.0) pg MCHC (32.0-36.0) g/dL RDW Std Deviation (36.4-46.3) fL RDW Coeff of Gomez (11.5-14.5) % Plt Count (130-400) K/uL MPV (9.4-12.3) fL Absolute Nucleated RBC (0-0) K/uL Nucleated RBC % (auto) % Sodium (136-145) mmol/L Potassium (3.5-5.1) mmol/L Chloride (98-107) mmol/L Carbon Dioxide (21-32) mmol/L Anion Gap (3-11) BUN (6-23) mg/dl Creatinine (0.6-1.2) mg/dl Est Cr Clr Drug Dosing ml/min Est GFR ( Amer) ml/min Est GFR (Non-Af Amer) ml/min BUN/Creatinine Ratio (10-20) Glucose (70-99(Fasting)) mg/dl POC Glucose 134 H 154 H 180 H (70-99) mg/dl Calcium (8.5-10.1) mg/dl Procalcitonin (0-0.5) ng/ml 09/08/21 Range/Units 06:34 WBC (4.8-10.8) K/ul RBC (3.93-5.22) M/uL Hgb (12.0-16.0) g/dl Hct (34.1-44.9) % MCV (80.0-100.0) fL MCH (25.0-34.0) pg MCHC (32.0-36.0) g/dL RDW Std Deviation (36.4-46.3) fL RDW Coeff of Gomez (11.5-14.5) % Plt Count (130-400) K/uL MPV (9.4-12.3) fL Absolute Nucleated RBC (0-0) K/uL Nucleated RBC % (auto) % Sodium (136-145) mmol/L Potassium (3.5-5.1) mmol/L Chloride (98-107) mmol/L Carbon Dioxide (21-32) mmol/L Anion Gap (3-11) BUN (6-23) mg/dl Creatinine (0.6-1.2) mg/dl Est Cr Clr Drug Dosing ml/min Est GFR ( Amer) ml/min Est GFR (Non-Af Amer) ml/min BUN/Creatinine Ratio (10-20) Glucose (70-99(Fasting)) mg/dl POC Glucose (70-99) mg/dl Calcium (8.5-10.1) mg/dl Procalcitonin 1.14 H (0-0.5) ng/ml PG Care Time/CCT Total # of Minutes Spent Total Time Spent with Patient: Total time spent is greater than 50% in coordination of care (as documented) at patient's floor/unit and/or counseling patient: Coding Level of Care Code 29060 Subseq Hosp Care Lvl 3 Diagnoses CKD (chronic kidney disease) stage 5, GFR less than 15 ml/min N18.5 Autoimmune hemolytic anemia D59.10 Hypoxia R09.02 Acute on chronic diastolic (congestive) heart failure I50.33 Abdominal pain R10.9 Pancytopenia D61.818 GI bleed K92.2 Elevated troponin R77.8 Controlled type 2 diabetes mellitus with neurologic complication, with long-term current use of insulin E11.49; Z79.4 Paroxysmal atrial fibrillation I48.0 Hepatic cirrhosis K74.69 Hepatic cirrhosis type: other cirrhosis Hypothyroidism E03.9 Obstructive sleep apnea G47.33 Obesity, Class II, BMI 35-39.9 E66.9 Acute kidney injury superimposed on chronic kidney disease N17.9; N18.9 Acute diastolic (congestive) heart failure I50.31 Steroid-induced myopathy G72.0; T38.0X5A (1) Hepatic cirrhosis Hepatic cirrhosis type: other cirrhosis Qualified Code(s): K74.69 - Other cirrhosis of liver
[2021-09-09] MEDS: INSULIN ASPART PER UNIT SC SCH ×4 (08:16→20:43)
[2021-09-09] MEDS: ROSUVASTATIN CALCIUM 10 MG TAB PO SCH (08:31)
[2021-09-09] MEDS: PANTOprazole 40 MG TAB PO SCH ×3 (08:32→21:00)
[2021-09-09] MEDS: ASPIRIN 81 MG ECTAB PO SCH (08:32)
[2021-09-09] MEDS: predniSONE 10 MG TABLET PO SCH (08:32)
[2021-09-09] MEDS: CYANOCOBALAMIN (B-12) 500 MCG TABLET PO SCH ×2 (08:32→09:09)
[2021-09-09] MEDS: CALCIUM 600MG + VIT D 400 IU TAB PO SCH ×2 (08:33→09:09)
[2021-09-09] MEDS: METOPROLOL SUCC 50MG EXT REL TAB PO SCH ×2 (08:33→21:00)
[2021-09-09] MEDS: SERTRALINE HCL 100 MG TABLET PO SCH (08:33)
[2021-09-09] MEDS: LANTUS PER UNIT CHARGE SQ SCH (08:33)
[2021-09-09] MEDS: DOCUSATE SODIUM/SENNA 50/8.6MG TAB PO SCH (08:34)
[2021-09-09] MEDS: SUCRALFATE 1 GM/10 ML UDC PO SCH ×4 (08:34→20:59)
[2021-09-09] MEDS: FLUTICASONE/VILANTEROL 200/25MCG 14 PUFFS/INHALER INH SCH (08:34)
[2021-09-09] MEDS: APIXABAN 5 MG TABLET PO SCH ×2 (08:34→20:58)
[2021-09-09] MEDS: LACTULOSE SYRUP 20 GM/30 ML UDC PO SCH ×3 (08:34→20:58)
[2021-09-09] MEDS: ACETAMINOPHEN 325 MG TAB PO PRN (08:44)
[2021-09-09] MEDS: POTASSIUM CHLORIDE CRTAB 20 MEQ TABCR PO STA ×2 (08:44→09:09)
[2021-09-09] MEDS: UMECLIDINIUM BROMIDE 62.5MCG/BLISTER 7 PUFFS/INHALER INH SCH (09:06)
--- NOTE | 2021-09-09 09:18 | Nephrology Progress Note ---
Date of Service September 09, 2021 Assessment & Plan (1) Acute kidney injury superimposed on chronic kidney disease: Plan: * CRS due to R heart failure * Patient has significant 3rd spacing of volume w/ ascites and dependent edema. Cr is stable but BUN is trending up despite recent IV fluid challange * I discussed BUILDING RENTAL SUPERINTENDENT with Mrs. Kaur again this morning. She reaffirmed that she does not want to be on dialysis. She is receptive to Palliative Care consultation tomorrow. 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 Goals of care reviewed with Nat (and her later by telephone). They do not wish to pursue dialysis. They do request consultation w/ Palliative Care to set up home hospice (3) Hepatic cirrhosis: Plan: * Elevated bilirubin (4) Anemia: Plan: * Management per hematology. H/H stable. Remains on weekly Epogen. (5) Acute diastolic (congestive) heart failure: Admission and Anticipated Discharge Date Admission Date: August 28, 2021 Subjective Mrs. Kaur was evaluated in her hospital room this morning. She appeared lethargic but awakened to voice and was oriented to self and month. She continues to breath comfortably on O2 at 2 L/min face mask. She denied angina but did c/o mild nausea Review of Systems Constitutional: no fever Eyes: no problem reported Ear, Nose, Mouth, Throat: no problem reported Respiratory: no dyspnea Cardiovascular: no chest pain Gastrointestinal: no abdominal pain and no diarrhea/loose stools Physical Exam Constitutional: + ill appearing; not in distress Eyes: PERRL, conjunctivae normal, anicteric sclerae Neck: trachea midline, no thyromegaly Respiratory: normal respiratory effort, lungs clear to auscultation Cardiovascular: Rate/Rhythm: regular rate and regular rhythm Extremities: + edema (2+ dependent edema of the arms and legs) Gastrointestinal (Abdomen): Inspection/Auscultation: + abdomen distended and + hypoactive bowel sounds Percussion/Palpation: abdomen nontender and no guarding Results & Data ([facility]) Vital Signs (Past 12 Hours) Vital Signs Temp Pulse Pulse Resp BP BP Pulse Ox 09/09/21 07:17 36.7 C 66 19 95/63 L 95 09/09/21 03:42 36.7 C 59 L 14 96/54 L 93 09/08/21 22:48 36.9 C 69 16 100/68 96 09/08/21 22:44 65 09/08/21 22:33 O2 Del Method O2 Flow Rate 09/09/21 07:17 Oxymask 2 09/09/21 03:42 Oxymask 2 09/08/21 22:48 Oxymask 2 09/08/21 22:44 09/08/21 22:33 Oxymask 2 Laboratory Results Laboratory Tests 09/09/21 09/09/21 07:01 07:01 WBC 5.28 Hgb 9.5 L Hct 30.1 L Plt Count 101 L Sodium 137 Potassium 3.4 L Chloride 98 Carbon Dioxide 27 BUN 101 H Creatinine 3.94 H Glucose 121 H Laboratory Tests 09/09/21 07:01 Est GFR (Non-Af Amer) 10.9 PG Care Time/CCT Total # of Minutes Spent Total Time Spent with Patient: Total time spent is greater than 50% in coordination of care (as documented) at patient's floor/unit and/or counseling patient: Coding Level of Care Code 03293 Subseq Hosp Care Lvl 3 Diagnoses Acute kidney injury superimposed on chronic kidney disease N17.9; N18.9 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
[2021-09-09] MEDS: POTASSIUM CHLORIDE / WTR 10 MEQ/100 ML PLCT IV SCH ×2 (11:03→12:31)
[2021-09-09] MEDS ORDERED: LANTUS PER UNIT CHARGE SQ ONE ×2 (11:30)
[2021-09-09] MEDS: MONTELUKAST SODIUM 10 MG TABLET PO SCH (21:01)
[2021-09-10] MEDS: LEVOTHYROXINE SODIUM 88 MCG TABLET PO SCH (06:03)
[2021-09-10 06:46] LABS: Hemoglobin 10.2 g/dl (12.0-16.0); Mean Corpuscular Hemoglobin 29.1 pg (25.0-34.0); Mean Corpuscular Hgb Conc 31.9 g/dL (32.0-36.0); Mean Corpuscular Volume 91.2 fL (80.0-100.0); Mean Platelet Volume 11.6 fL (9.4-12.3); Nucleated RBC # (auto) 0.15 K/uL (0-0); Nucleated RBC % (auto) 2.1 %; Platelet Count 112 K/uL (130-400); RDW Coefficient of Variation 21.7 % (11.5-14.5); RDW Standard Deviation 63.7 fL (36.4-46.3); Red Blood Count 3.51 M/uL (3.93-5.22)
[2021-09-10 07:08] LABS: Albumin Globulin Ratio 1.2 (0.9-2); Albumin Level 2.6 gm/dl (3.4-5.0); BUN Creatinine Ratio 27.1 (10-20); Bilirubin,Total 2.4 mg/dl (0.2-1.0); Calcium 8.4 mg/dl (8.5-10.1); Creatinine Clr Calc Pharmacy 13.3 ml/min; Est GFR (Non-African American) 10.4 ml/min; Globulin 2.2 gm/dl (2.5-4.0); Magnesium 2.5 mg/dl (1.7-2.4); Total Protein 4.8 gm/dl (6.0-8.3)
--- NOTE | 2021-09-10 07:31 | Hospitalist Progress Note ---
Date of Service September 10, 2021 Assessment & Plan (1) Need for comfort care: Plan: Discussions of cardiorenal syndrome patient refusing to entertain the thought of dialysis. Meeting with palliative care and transition to comfort care measures with only essential medications continued, telemetry discontinued. Patient's cannot care for the patient at home (2) CKD (chronic kidney disease) stage 5, GFR less than 15 ml/min: Plan: Cardiorenal syndrome. Predominately R sided heart failure with noted persistent third spacing. Nephrology following Does appear to have a component of intravascular depletion, non-oliguric. lasix on hold Remains on reduced dose of metoprolol 50mg BID Not wanting to consider HD, previously discussed and again voices no HD Non-essential medications placed on hold Palliative consulted, messaged Dr Pavon, help transition family to comfort measures (3) Autoimmune hemolytic anemia: Plan: Recent diagnosis, improving. 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 now on hold Abx since discontinued Diuretics per nephrology recommendations, Encouraged use of IS but continues with weakness and poor effort Supplemental O2 as needed 2 u PRBC and MAYNOR x 2 (5) Acute on chronic diastolic (congestive) heart failure: Plan: ECHO w/ LV systolic function normal. no regional wma, mild concentric LVH. EF 60-65%. Mild MR, mild TR. Suspect peripheral edema also contributing from underlying cirrhosis/low albumin (albumin 2.4) -- no role for albumin currently however, urine na acceptable TSH wnl Diuresis on hold currently as above, Supplemental O2 as needed, (6) Pancytopenia: Plan: Hematology consulted; secondary to history of cirrhosis, splenomegaly, and autoimmune hemolytic anemia Suspected GI bleed causing acute worsening of her baseline anemia, in conjunction with her CKD patient given 2u prbc, MAYNOR 10,000 provided 08/30, 40,000 on 09/05 w/ plans for weekly w/ hematology in followup Reduced steroids to 10mg daily for 09/05 (7) GI bleed: Plan: On 08/29 nursing had reported dark stool with surrounding cameron blood; ct IV PPI, GI input appreciated (8) Elevated troponin: Plan: Likely type II LA, demand ischemia; repeat trop earlier in week for reported CP cut in half from prior value, prior isosorbide which had been stopped due to soft BPs but no CP reported since resuming ASA 81mg continued prior, eliquis resumed for 09/05 Cards consulted during inpatient stay EKG c/ CP, none reported subsequent days, just nausea (9) Controlled type 2 diabetes mellitus with neurologic complication, with long- term current use of insulin: Plan: endorgan damage including chronic kidney disease stage IV Basal Bolus. (10) Paroxysmal atrial fibrillation: Plan: Eliquis on hold since . NSR on monitor with PACs NSR w/ sinus arrhtymia on monitor (11) Hepatic cirrhosis: Plan: Outpatient follow-up in this regard; not encephalopathic. Plt stable LFTs improving/stable Lasix/spironolactone on hold for progressive worsening Cr Ammonia 46 --> 31 on repeat to r/o encephalopathic causes day prior (12) Hypothyroidism: Plan: TSH wnl April 2021, continue usual Synthroid dose. 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 LFTs improving, LDH further decreased on labs Titrated to 10mg prednisone daily for now, Admission and Anticipated Discharge Date Admission Date: August 28, 2021 Subjective pt was awake and alert, discussed hospice reinforced that does not want dialysis at any time in afternoon hospice care did meet and convert patient to inpatient hospice, states he cannot take care of her at home Review of Systems Review of Systems: moderate distress and fatigue no headache, no visual changes no speech or swallowing issues no chest pain, pressure or palpitations shortness of breath, no cough or wheezes no abdominal pain, nausea or vomiting, diarrhea or constipation no dysuria, hematuria or frequency significant swelling no focal joint pain mild non radicular back pain, CVA tenderness or radicular pain no bruising, bleeding or rashes no focal signs of weakness, overall too weak to get out of bed Physical Exam Physical Exam: General: ill appearing female, generalized fatigue but stable from days prior, sitting up in bed, 2L Oxymask and breathing without distress HEENT: dried blood to nares, mm slightly dry Resp: not tachypneic, no cough, poor inspiratory effort, diminshed in the bases, breathing comfortably on 2L Oxymask CV: regular rate (PACs on monitor), 2+ pitting edema bilateral upper and lower extremities, cool to touch, pulses palpable GI: +BS, ascites/edema, nontender : andrew draining low amount of clear yellow urine Psych/Neuro/Msk: alert to person/place/month, knows in the hospital,cooperative Skin: cool, dry, scattered ecchymosis from lab draws Results & Data Results & Data ([facility]) Vital Signs (Past 12 Hours) Vital Signs Temp Pulse Pulse Resp BP Pulse Ox O2 Del Method 09/10/21 06:48 98.1 F 78 18 100/68 100 Nasal CPAP 09/10/21 04:10 72 20 99 09/10/21 03:10 97.7 F 99 H 18 109/75 98 Nasal CPAP 09/09/21 23:13 67 20 94 09/09/21 22:56 70 09/09/21 22:31 Oxymask 09/09/21 22:31 98.6 F 71 16 115/78 98 Oxymask 09/09/21 19:42 98.8 F 67 19 110/74 94 Room Air O2 Flow Rate 09/10/21 06:48 09/10/21 04:10 4 09/10/21 03:10 09/09/21 23:13 4 09/09/21 22:56 09/09/21 22:31 2 09/09/21 22:31 2 09/09/21 19:42 PG Care Time/CCT Total # of Minutes Spent Total Time Spent with Patient: Total time spent is greater than 50% in coordination of care (as documented) at patient's floor/unit and/or counseling patient: Coding Level of Care Code 36512 Subseq Hosp Care Lvl 3 Diagnoses Need for comfort care CKD (chronic kidney disease) stage 5, GFR less than 15 ml/min N18.5 Autoimmune hemolytic anemia D59.10 Hypoxia R09.02 Acute on chronic diastolic (congestive) heart failure I50.33 Pancytopenia D61.818 GI bleed K92.2 Elevated troponin R77.8 Controlled type 2 diabetes mellitus with neurologic complication, with long-term current use of insulin E11.49; Z79.4 Paroxysmal atrial fibrillation I48.0 Hepatic cirrhosis K74.69 Hepatic cirrhosis type: other cirrhosis Hypothyroidism E03.9 Obstructive sleep apnea G47.33 Obesity, Class II, BMI 35-39.9 E66.9 Acute kidney injury superimposed on chronic kidney disease N17.9; N18.9 Acute diastolic (congestive) heart failure I50.31 Steroid-induced myopathy G72.0; T38.0X5A (1) Hepatic cirrhosis Hepatic cirrhosis type: other cirrhosis Qualified Code(s): K74.69 - Other cirrhosis of liver
[2021-09-10] MEDS: CALCIUM 600MG + VIT D 400 IU TAB PO SCH (08:42)
[2021-09-10] MEDS: CYANOCOBALAMIN (B-12) 500 MCG TABLET PO SCH (08:43)
[2021-09-10] MEDS: APIXABAN 5 MG TABLET PO SCH (08:44)
[2021-09-10] MEDS: FLUTICASONE/VILANTEROL 200/25MCG 14 PUFFS/INHALER INH SCH (08:45)
[2021-09-10] MEDS: ASPIRIN 81 MG ECTAB PO SCH (08:45)
[2021-09-10] MEDS: METOPROLOL SUCC 50MG EXT REL TAB PO SCH (08:46)
[2021-09-10] MEDS: PANTOprazole 40 MG TAB PO SCH (08:46)
[2021-09-10] MEDS: LACTULOSE SYRUP 20 GM/30 ML UDC PO SCH (08:46)
[2021-09-10] MEDS: SUCRALFATE 1 GM/10 ML UDC PO SCH ×2 (08:47→13:25)
[2021-09-10] MEDS: SERTRALINE HCL 100 MG TABLET PO SCH (08:47)
[2021-09-10] MEDS: ROSUVASTATIN CALCIUM 10 MG TAB PO SCH (08:47)
[2021-09-10] MEDS: predniSONE 10 MG TABLET PO SCH (08:47)
--- NOTE | 2021-09-10 08:54 | Nephrology Progress Note ---
Date of Service September 10, 2021 Assessment & Plan (1) Acute kidney injury superimposed on chronic kidney disease: Plan: * CRS due to R heart failure * Patient has significant 3rd spacing of volume w/ ascites and dependent edema. Cr is stable but BUN is trending up despite recent IV fluid challange * I discussed REGISTRATION SPECIALIST with Mrs. Kaur again this morning. She reaffirmed that she does not want to be on dialysis. She is receptive to Palliative Care consultation today. 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 Goals of care have been reviewed with Nat and her . They do not wish to pursue dialysis. They do request consultation w/ Palliative Care to set up home hospice (3) Hepatic cirrhosis: Plan: * Elevated bilirubin (4) Anemia: Plan: * Management per hematology. H/H stable. Remains on weekly Epogen. (5) Acute diastolic (congestive) heart failure: Admission and Anticipated Discharge Date Admission Date: August 28, 2021 Subjective Mrs. Kaur was evaluated in her hospital room this morning. She appeared lethargic but awakened to voice and was oriented to self. She continues to breath comfortably on O2 at 2 L/min face mask. She denied angina but did c/o mild nausea. Review of Systems Constitutional: no fever Eyes: no problem reported Ear, Nose, Mouth, Throat: no problem reported Respiratory: no dyspnea Cardiovascular: no chest pain Gastrointestinal: no abdominal pain and no diarrhea/loose stools Physical Exam Constitutional: + ill appearing; not in distress Eyes: PERRL, conjunctivae normal, anicteric sclerae Neck: trachea midline, no thyromegaly Respiratory: normal respiratory effort, lungs clear to auscultation Cardiovascular: Rate/Rhythm: regular rate and regular rhythm Extremities: + edema (2+ dependent edema of the arms and legs) Gastrointestinal (Abdomen): Inspection/Auscultation: + abdomen distended and + hypoactive bowel sounds Percussion/Palpation: abdomen nontender and no guarding Results & Data ([facility]) Vital Signs (Past 12 Hours) Vital Signs Temp Pulse Pulse Resp BP Pulse Ox O2 Del Method 09/10/21 07:15 Oxymask 09/10/21 06:48 36.7 C 78 18 100/68 100 Nasal CPAP 09/10/21 04:10 72 20 99 09/10/21 03:10 36.5 C 99 H 18 109/75 98 Nasal CPAP 09/09/21 23:13 67 20 94 09/09/21 22:56 70 09/09/21 22:31 Oxymask 09/09/21 22:31 37.0 C 71 16 115/78 98 Oxymask O2 Flow Rate 09/10/21 07:15 2 09/10/21 06:48 09/10/21 04:10 4 09/10/21 03:10 09/09/21 23:13 4 09/09/21 22:56 09/09/21 22:31 2 09/09/21 22:31 2 Laboratory Results Laboratory Tests 09/10/21 09/10/21 05:29 05:29 WBC 7.00 Hgb 10.2 L Hct 32.0 L Plt Count 112 L Sodium 134 L Potassium 4.0 Chloride 96 L Carbon Dioxide 22 BUN 111 H Creatinine 4.10 H Glucose 166 H PG Care Time/CCT Total # of Minutes Spent Total Time Spent with Patient: Total time spent is greater than 50% in coordination of care (as documented) at patient's floor/unit and/or counseling patient: Coding Level of Care Code 05425 Subseq Hosp Care Lvl 3 Diagnoses Acute kidney injury superimposed on chronic kidney disease N17.9; N18.9 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
[2021-09-10] MEDS: INSULIN ASPART PER UNIT SC SCH ×2 (08:58→12:13)
[2021-09-10] MEDS ORDERED: LANTUS PER UNIT CHARGE SQ ONE (09:00)
[2021-09-10] MEDS: DOCUSATE SODIUM/SENNA 50/8.6MG TAB PO SCH (09:19)
[2021-09-10] MEDS: UMECLIDINIUM BROMIDE 62.5MCG/BLISTER 7 PUFFS/INHALER INH SCH (10:35)
[2021-09-10] MEDS: ONDANSETRON INJ 2 MG/ML 2 ML VIAL IV PRN (11:30)
[2021-09-10] MEDS ORDERED: FIRST - Mouthwash BLM 119 ML PO PRN (11:53)
[2021-09-10] MEDS ORDERED: oxyCODONE HCL SOLN 5 MG/5 ML UDC PO PRN (11:53)
[2021-09-10] MEDS ORDERED: GLYCOPYRROLATE 0.2 MG/ML VIAL IV PRN (13:37)
[2021-09-10] MEDS ORDERED: LORazepam 0.5 MG in SYRINGE 0.25 ML IV PRN (13:37)
[2021-09-10] MEDS ORDERED: LORazepam 0.5 MG TAB PO PRN (13:37)
--- NOTE | 2021-09-10 14:16 | Pharmacy Report ---
Pharmacy Glycemic Short Note 2 - Date of Service September 10, 2021 - Glycemic Short BSG Results (Last 24 hours): 09/09/21 09/09/21 09/10/21 16:29 20:29 05:29 Glucose 166 H POC Glucose 153 H 173 H 09/10/21 09/10/21 07:24 11:13 Glucose POC Glucose 185 H 202 H OUTPATIENT ANTIDIABETIC REGIMEN: * Novolog insulin pump (omnipod) -- up to 230 units per day * HbA1c: unreliable in the setting of anemia with regular iron infusions ASSESSMENT: 09/10/21 * Patient's BSGs yesterday were [phone] mg/dL. Patient received 14 units of insulin (10 units of basal and 4 units of bolus). She continues on prednisone 10 mg po daily. PO intake has drastically decreased. * Fasting today is 185 mg/dL. Increase basal to 15 units. * Will continue Novolog. PLAN FOR INPATIENT GLYCEMIC CONTROL: * Basal insulin * Lantus 15 units SQ qAM * Bolus insulin * Goal BSG Range: Low 110 mg/dL, High 140 mg/dL * Correction Factor: 18 mg/dL/unit * Carbohydrate ratio = 6 g/unit
--- NOTE | 2021-09-10 14:26 | Palliative Care Consultation ---
Date of Consultation September 10, 2021 Assessment & Plan (1) Mouth pain: Suspect thrush but not able to visualize. Orders placed for magic mouthwash and nystatin suspension to be used with oral swabs if she is unable to swallow. I did also order oxycodone concentrate for generalized pain and pain not relieved with topicals. She would be high risk for opioid toxicity with morphine. (2) Anxiety: We discussed emotional pain related to her illness and decision not to have dialysis. She nodded when asked if she may be having this. It is difficult to explore at this time as she is having discomfort with talking. Her did confirm that this was a concern. Lorazepam is available as needed. (3) Palliative care encounter: The first thing that Nat said to me when I sat down to talk to her was "I don't want dialysis". I assured her that we would respect her decision. Her and son have also told her that they will honor her decision. I asked her if she was scared or worried. She nodded her head but did not elaborate. I asked her if she wanted to talk about what to expect and she indicated that she did not. I spoke with her at bedside. He recognizes that she has had a very difficult time in the last few months and has seen her functional decline. His wish is to relieve any further suffering. We talked about hospice however, he does not feel that he is able to care for her at home. We discussed shift of focus to symptom management and comfort. That would involve reviewing her medications and paring back to only the medications that are contributing to her comfort. They agree that this is the way that they would like to go. We discussed meds for thrush, oral pain medication in a concentrated liquid, as well as medication for nausea and anxiety. Mr. Kaur asked about prognosis and indicated that her son would be coming to visit on the weekends. Discussed with RN and Dr. Harper. History of Present Illness Reason for Consultation: goals of care Requesting Physician: GUILLERMINA Hansen Attending Physician: Jesus Alberto Harper MD History of Present Illness 71 yo lady with history of pancytopenia, afib, HFpEF, KEREN, CKD and cirrhosis with fatty liver. She has had functional decline with increased weakness and has not been able to get out of bed. She was admitted with hypoxic respiratory failure and acute on chronic renal failure. Her most recent creatinine is 4.1 with GFR of 10. She has had discussions with nephrology and with the hospitalist team and has declined dialysis treatment. She is awake and appears uncomfortable. She c/o pain in her mouth which her seems to recall, got worse when she was on high dose steroid. She also has pain with swallowing which has interfered with her appetite. She has had some abdominal pain but denies that currently and is on both carafate and BID Protonix. Allergies Allergy/AdvReac Type Severity Reaction Status Date / Time levofloxacin Allergy Intermediate rash Verified 08/28/21 07:11 enalapril Allergy Unknown DRY COUGH Verified 08/28/21 07:11 insulin detemir Allergy Unknown HIVES Verified 08/28/21 07:11 enalaprilat [From Vasotec] Allergy Unknown Verified 08/28/21 07:11 Home Medications Medication Instructions Recorded Confirmed Type calcium carbonate 600 mg-vitamin 1 tab PO QAM 08/27/18 08/28/21 History D3 20 mcg (800 unit) chewable tablet (Caltrate 600 plus D) fexofenadine 180 mg tablet 180 mg PO DAILY PRN ALLERGIES 08/27/18 08/28/21 History (Chelsie Allergy) ipratropium bromide 21 mcg (0.03 1 spray intranasal UD PRN sinus 08/27/18 08/28/21 History %) nasal spray congestion tramadol 50 mg tablet 50 mg PO Q6H PRN Pain #60 tabs 09/04/18 08/28/21 Rx blood sugar diagnostic (FreeStyle 03/15/19 07/26/21 History Test) cholecalciferol (vitamin D3) 25 25 mcg PO QAM 03/09/21 08/28/21 History mcg (1,000 unit) tablet cyanocobalamin (vitamin B-12) 500 1,000 mcg PO QAM 03/09/21 08/28/21 History mcg tablet rosuvastatin 40 mg tablet 40 mg PO QAM 03/09/21 08/28/21 History sodium bicarbonate 650 mg tablet 650 mg PO QAM stomach upset 03/09/21 08/28/21 History blood-glucose sensor (Dexcom G6 #1 ea 03/21/21 07/26/21 Rx Sensor) apixaban 5 mg tablet 5 mg PO BID #180 tabs 05/30/21 08/28/21 Rx spironolactone 100 mg tablet 100 mg PO QAM #90 tabs 06/06/21 08/28/21 Rx tiotropium bromide 18 mcg capsule 1 cap inhalation QAM 90 days #90 06/06/21 08/28/21 Rx with inhalation device (Spiriva inhalations with HandiHaler) albuterol sulfate 90 mcg/actuation 2 puff inhalation Q4 PRN Shortness 06/07/21 08/28/21 Rx aerosol inhaler (Ventolin HFA) Of Breath Or Wheezing #54 grams fluticasone furoate 200 1 inh inhalation QAM #180 ea 06/07/21 08/28/21 Rx mcg-vilanterol 25 mcg/dose inhalation powder (Breo Ellipta) furosemide 40 mg tablet (Lasix) 40 mg PO QAM #120 tabs 06/07/21 08/28/21 Rx levalbuterol HCl 1.25 mg/3 mL 1.25 mg (3 mL) inhalation TID PRN 06/07/21 08/28/21 Rx solution for nebulization ASTHMA #810 mL metoprolol succinate 50 mg 75 mg PO BID #270 tabs 06/07/21 08/28/21 Rx tablet,extended release 24 hr olopatadine 0.1 % eye drops 1 drp ophthalmic (eye) BID PRN 06/07/21 08/28/21 Rx AFFECTED EYE with allergies #10 mL Oxygen Home #1 ea 06/18/21 07/26/21 Rx amlodipine 5 mg tablet (Norvasc) 10 mg PO QAM 06/18/21 08/28/21 History aspirin 81 mg capsule 81 mg PO QAM 06/18/21 08/28/21 History famotidine 20 mg tablet 20 mg PO BID 06/18/21 08/28/21 History ferrous sulfate 325 mg (65 mg 325 mg PO QAM 06/18/21 08/28/21 History iron) tablet sertraline 100 mg tablet 100 mg PO QAM 06/18/21 08/28/21 History isosorbide mononitrate 120 mg 120 mg PO QAM 06/19/21 08/28/21 History tablet,extended release 24 hr pantoprazole 40 mg tablet,delayed 40 mg PO BID 06/19/21 08/28/21 History release sucralfate 1 gram tablet 1 g PO QID PRN Acid Reflux 06/19/21 08/28/21 History montelukast 10 mg tablet 10 mg PO HS 06/20/21 08/28/21 History Omnipod Dash Pods (Gen 4) (insulin #90 ea 06/26/21 07/26/21 Rx pump cart,cont inf,BT) trazodone 50 mg tablet 50 mg PO HS #90 tabs 08/10/21 08/28/21 Rx nitroglycerin 0.4 mg sublingual 0.4 mg sublingual Q5M PRN chest 08/22/21 08/28/21 Rx tablet pain #30 tabs insulin aspart U-100 100 unit/mL 230 unit subcut UD 08/28/21 08/28/21 History subcutaneous solution (Novolog U-100 Insulin aspart) levothyroxine 88 mcg tablet 88 mcg PO DAILYBB 08/28/21 08/28/21 History potassium chloride 10 mEq 10 meq PO QAM 08/28/21 08/28/21 History tablet,extended release prednisone 20 mg tablet 20 mg PO UD 08/28/21 08/28/21 History Patient History Medical History Acute kidney injury superimposed on chronic kidney disease Anemia Antiplatelet or antithrombotic long-term use Asymptomatic carotid artery stenosis Bilateral carotid artery disease Bradycardia CAD (coronary artery disease) Carotid stenosis monitors with Dr Bennett Cerebral arterial aneurysm Cerebral arterial aneurysm "small" behind the right ear - monitors only. followed with [facility] [place] Chest pain due to CAD takes Renexa Chronic reflux esophagitis Cirrhosis Congestive heart failure newly dx 01/2021 Controlled type 2 diabetes mellitus with kidney complication, with long-term current use of insulin Diabetic peripheral neuropathy Gastroparesis Hepatic cirrhosis non-alcoholic History of anemia History of anesthesia reaction "my blood pressure bottomed out and they had to use medication and the pads to restart my heart during my ovarian mass surgery at [facility]" ~. History of ASCVD History of asthma History of depression Hypercholesterolemia Hypertension Hypothyroidism Intestinal metaplasia of gastric mucosa Irritable bowel syndrome hx Mitral regurgitation Nausea and vomiting after administration of anesthetic agent KEREN (obstructive sleep apnea) cpap at night Osteoarthritis Osteopenia Paroxysmal atrial fibrillation newly dx 01/2021. 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 ~[id number]. H/O: hysterectomy ISABEL with unilateral oopherectomy History of breast biopsy right (benign) History of cardiac catheterization 12+ years ago, x1 stent prior to CABG August 2019 [facility]-> transferred to [facility] or [facility] x1 stent placed. History of cataract surgery bilateral History of knee replacement left knee Hx of CABG x4 vessels. 12+ years ago. done at [facility]. follows with Dr Bennett Hx of cataract surgery Hx of colonoscopy (~2013) S/P nasal surgery Status post breast reduction bilateral Family History Mother Carotid artery stenosis Breast cancer Heart failure Myocardial infarction Brother Carotid artery stenosis Peripheral vascular disease Stroke syndrome Hx of CABG Sinusitis Asthma Myocardial infarction Environmental allergies Sister Brain cancer Grandmother Myocardial infarction Denies family history of Ovarian cancer Prostate cancer Crohn's disease Bleeding disorder Colorectal cancer Ulcerative colitis Social History Smoking Status: Never smoker Second Hand Exposure: No; Hx Alcohol Use: Yes Alcohol type: wine Hx Substance Use: No Preferred Language: Persian Communication Ability: Effective Visual Impairment: No Limitations Hearing Ability: Normal Food Products Tester Required: No Beliefs That Will Affect Care: None marital status: Current Living Situation: Spouse 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 How many Children do You have: 1 Feels Safe at Home: Yes Childhood Exposure to Second-Hand Smoke: Yes Dental Care, Regularly: Yes Physical Activity Frequency: Does not Exercise Seatbelt Use: always Sunscreen Use: Yes Assistive Devices: Lift Chair and Walker Review of Systems Review of Systems: ESAS Pain 2/3 Dyspnea 0/3 Anxiety 2/3 Fatigue 3/3 Nausea 1/3 Drowsiness 0/3 PPS 30% Physical Exam Constitutional: + uncomfortable ENMT: tongue dry with dried blood on lips, unable to visualize any exudate due to patient discomfort Respiratory: normal respiratory effort; no labored breathing Cardiovascular: Extremities: + edema Neurologic: awake; not confused Psychiatric: Affect: + anxious affect Results & Data ([facility]) Vital Signs (Past 12 Hours) Vital Signs Temp Pulse Pulse Resp BP BP Pulse Ox 08/01/22 11:20 09/10/21 10:40 97.9 F 67 17 122/71 92 09/10/21 07:15 09/10/21 06:48 98.1 F 78 18 100/68 100 09/10/21 04:10 72 20 99 09/10/21 03:10 97.7 F 99 H 18 109/75 98 O2 Del Method O2 Flow Rate 09/10/21 11:20 Room Air 09/10/21 10:40 Room Air 09/10/21 07:15 Oxymask 2 09/10/21 06:48 Nasal CPAP 09/10/21 04:10 4 09/10/21 03:10 Nasal CPAP PG Care Time/CCT Total # of Minutes Spent Total Time Spent: 75 Total Time Spent with Patient: Total time spent is greater than 50% in coordination of care (as documented) at patient's floor/unit and/or counseling patient: symptom management, goals of care, coordination of care, hospice, prognosis Coding Level of Care Code 23218 Initial Inpt Care Lvl 3 Diagnoses Mouth pain K13.79 Anxiety F41.9 Palliative care encounter Z51.5
[2021-09-10] MEDS ORDERED: NYSTATIN 500,000 UNIT TAB PO SCH (17:00)
[2021-09-10] MEDS: NYSTATIN SUSP 500,000 U/5 ML UDC PO SCH (17:45)
[2021-09-11] MEDS: NYSTATIN SUSP 500,000 U/5 ML UDC PO SCH ×6 (00:53→22:15)
[2021-09-11] MEDS: PANTOprazole 40 MG TAB PO SCH ×3 (00:53→07:51)
[2021-09-11] MEDS: METOPROLOL SUCC 50MG EXT REL TAB PO SCH ×3 (00:53→07:50)
[2021-09-11] MEDS: DOCUSATE SODIUM/SENNA 50/8.6MG TAB PO SCH ×2 (07:45→07:50)
[2021-09-11 08:26] LABS: Babesia microti DNA Not Detected (Not Detected)
--- NOTE | 2021-09-11 08:49 | Nephrology Progress Note ---
Date of Service September 11, 2021 Assessment & Plan (1) CKD (chronic kidney disease) stage 5, GFR less than 15 ml/min: Plan Chart reviewed this morning. Palliative care has met w/ Mrs. Kaur and her family. They have chosen not to pursue HD and transition her to comfort measures only. Will sign off. Please call if further assistance is needed Results & Data ([facility]) Vital Signs (Past 12 Hours) Vital Signs Coding Level of Care Code 20243 Subseq Hosp Care Lvl 1 Diagnoses CKD (chronic kidney disease) stage 5, GFR less than 15 ml/min N18.5
[2021-09-11] MEDS: HYDROmorphone INJ 0.5 MG/0.5 ML SYR IV PRN (11:31)
--- NOTE | 2021-09-11 13:59 | Palliative Care Progress Note ---
Date of Service September 11, 2021 Assessment & Plan (1) Anxiety: Plan: I talked with Nat about her feeing anxious and offered support to help work through her concerns. She is not really able to do that at this time. I assured her that we have medication available to help if she is feeling overwhelmed and she should let us know if she would want that. (2) Mouth pain: Plan: Making po medications difficult. Discussed use of IV hydromorphone for pain and she would prefer that. Discussed with RN. (3) Abdominal pain: Plan: As above. (4) Palliative care encounter: Plan: Focus of care is symptom management and comfort. She is likely to become more uremic and encephalopathic over the next few days. Her is not comfortable with caring for her at home with hospice. Admission and Anticipated Discharge Date Admission Date: August 28, 2021 Subjective Awake. Face more relaxed today but gets anxious when talking. She has not had any prn medications since yesterday. She complains of pain in her epigastrium. She has not been able to tolerate po carafate or most po meds. She also did not tolerate nystatin. Review of Systems Review of Systems: ESAS Pain 2/3 Nausea 0/3 Dyspnea 1/3 Anxiety 2/3 PPS 20% Physical Exam Constitutional: + ill appearing; no acute distress ENMT: Mouth: + dry oral mucous membranes Respiratory: normal respiratory effort; no labored breathing Cardiovascular: Extremities: + edema Gastrointestinal (Abdomen): epigastric tenderness Neurologic: awake; not confused Psychiatric: Affect: + anxious affect Results & Data ([facility]) Vital Signs (Past 12 Hours) Vital Signs Temp Pulse Resp BP Pulse Ox O2 Del Method 09/11/21 09:31 Room Air 09/11/21 08:23 97.7 F 83 28 H 90/54 L 93 Room Air PG Care Time/CCT Total # of Minutes Spent Total Time Spent: 28 Total Time Spent with Patient: Total time spent is greater than 50% in coordination of care (as documented) at patient's floor/unit and/or counseling patient:symptom management, patient education and support Coding Level of Care Code 07223 Subseq Hosp Care Lvl 2 Diagnoses Anxiety F41.9 Mouth pain K13.79 Abdominal pain R10.9 Palliative care encounter Z51.5
--- NOTE | 2021-09-11 18:37 | Hospitalist Progress Note ---
Date of Service September 11, 2021 Assessment & Plan (1) Need for comfort care: Plan: Discussions of cardiorenal syndrome patient refusing to entertain the thought of dialysis. Meeting with palliative care and transition to comfort care measures with only essential medications continued, telemetry discontinued. Patient's cannot care for the patient at home Pts symptoms are controled she endorses support for symptom based plan of care (2) CKD (chronic kidney disease) stage 5, GFR less than 15 ml/min: Plan: Cardiorenal syndrome. Predominately R sided heart failure with noted persistent third spacing. Nephrology following Does appear to have a component of intravascular depletion, non-oliguric. lasix on hold Not wanting to consider HD, previously discussed and reinforced no HD Non-essential medications placed on hold Palliative consulted, messaged Dr Pavon, help transition family to comfort measures (3) Autoimmune hemolytic anemia: Plan: Recent diagnosis, improving. 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 now on hold Abx since discontinued Supplemental O2 as needed 2 u PRBC and MAYNOR x 2 (5) Acute on chronic diastolic (congestive) heart failure: Plan: ECHO w/ LV systolic function normal. no regional wma, mild concentric LVH. EF 60-65%. Mild MR, mild TR. Suspect peripheral edema also contributing from underlying cirrhosis/low albumin (albumin 2.4) -- no role for albumin currently however, urine na acceptable TSH wnl Diuresis on hold currently as above, Supplemental O2 as needed, (6) Pancytopenia: Plan: Hematology consulted; secondary to history of cirrhosis, splenomegaly, and autoimmune hemolytic anemia Suspected GI bleed causing acute worsening of her baseline anemia, in conjunction with her CKD patient given 2u prbc, MAYNOR 10,000 provided 08/30, 40,000 on 09/05 Hematology aware of comfort status Reduced steroids to 10mg daily for 09/05 (7) GI bleed: Plan: On 08/29 nursing had reported dark stool with surrounding cameron blood; (8) Elevated troponin: Plan: Likely type II CT, demand ischemia; repeat trop earlier in week for reported CP no CP reported since (9) Controlled type 2 diabetes mellitus with neurologic complication, with long- term current use of insulin: Plan: endorgan damage including chronic kidney disease stage IV insulin stopped (10) Paroxysmal atrial fibrillation: Plan: Eliquis on hold since 08.28 NSR on monitor with PACs NSR w/ sinus arrhtymia on monitor (11) Hepatic cirrhosis: Plan: Outpatient follow-up in this regard; not encephalopathic. (12) Hypothyroidism: Plan: TSH wnl April 2021, continue usual Synthroid dose. 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 Face more relaxed today but gets anxious when talking. She has not had any prn medications since yesterday. She complains of pain in her epigastrium. She has not been able to tolerate po carafate or most po meds. She also did not tolerate nystatin. Review of Systems Review of Systems: Pt is on comfort measures and appears comfortable Physical Exam Physical Exam: The patient appeared without distress, states pain is controlled Vital signs as documented. Lungs appear unlabored Cardiac exam, Rhythm is regular.. Abdominal exam reveals normal bowel sounds, soft non tender, Extremities are 2+ edematous Neurologic exam is alert and oriented, Results & Data Results & Data ([facility]) Vital Signs (Past 12 Hours) Vital Signs Temp Pulse Resp BP Pulse Ox O2 Del Method 09/11/21 09:31 Room Air 09/11/21 08:23 97.7 F 83 28 H 90/54 L 93 Room Air PG Care Time/CCT Total # of Minutes Spent Total Time Spent with Patient: Total time spent is greater than 50% in coordination of care (as documented) at patient's floor/unit and/or counseling patient: Coding Level of Care Code 58003 Subseq Hosp Care Lvl 2 Diagnoses Need for comfort care CKD (chronic kidney disease) stage 5, GFR less than 15 ml/min N18.5 Autoimmune hemolytic anemia D59.10 Hypoxia R09.02 Acute on chronic diastolic (congestive) heart failure I50.33 Pancytopenia D61.818 GI bleed K92.2 Elevated troponin R77.8 Controlled type 2 diabetes mellitus with neurologic complication, with long-term current use of insulin E11.49; Z79.4 Paroxysmal atrial fibrillation I48.0 Hepatic cirrhosis K74.69 Hepatic cirrhosis type: other cirrhosis Hypothyroidism E03.9 Obstructive sleep apnea G47.33 Obesity, Class II, BMI 35-39.9 E66.9 Acute kidney injury superimposed on chronic kidney disease N17.9; N18.9 Acute diastolic (congestive) heart failure I50.31 Steroid-induced myopathy G72.0; T38.0X5A (1) Hepatic cirrhosis Hepatic cirrhosis type: other cirrhosis Qualified Code(s): K74.69 - Other cirrhosis of liver
[2021-09-12] MEDS: NYSTATIN SUSP 500,000 U/5 ML UDC PO SCH ×4 (07:58→22:31)
[2021-09-12] MEDS: DOCUSATE SODIUM/SENNA 50/8.6MG TAB PO SCH (07:58)
[2021-09-12] MEDS: HYDROmorphone INJ 0.5 MG/0.5 ML SYR IV PRN ×2 (12:01→17:02)
[2021-09-12] MEDS ORDERED: FAMOTIDINE 20 MG in SYRINGE 3 ML IV ONE (16:45)
[2021-09-12] MEDS: ONDANSETRON INJ 2 MG/ML 2 ML VIAL IV SCH ×2 (17:02→22:31)
--- NOTE | 2021-09-12 20:41 | Hospitalist Progress Note ---
Date of Service September 12, 2021 Assessment & Plan (1) Need for comfort care: Plan: Increase dilaudid to 1mg q1h prn for pain control/dyspnea. Schedule IV zofran 4mg q6h for nausea. Cont other comfort care pathway meds. Called and spoke with pt's - support given. He was able to see her this evening at bedside. (2) Palliative care patient: Plan: now comfort care measures/pathway see #1 above (3) CKD (chronic kidney disease) stage 5, GFR less than 15 ml/min: Plan: With superimposed Cardiorenal syndrome. Now on comfort care measures. (4) Autoimmune hemolytic anemia: Plan: Recent diagnosis Had been followed by Bessie PERRY at [facility] Steroids, etc stopped - transitioned to comfort care (5) Hypoxia: Plan: Multifactorial -- CHF, etc (6) Acute on chronic diastolic (congestive) heart failure: (7) Pancytopenia: Plan: Secondary to history of cirrhosis, splenomegaly, and autoimmune hemolytic anemia Suspected GI bleed causing acute worsening of her baseline anemia, in conjunction with her CKD stage 5. 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 autoimmune hemolytic anemia stopped steroids - transition to comfort care pathway Plan support given to pt's by phone this evening cont comfort care measures Admission and Anticipated Discharge Date Admission Date: August 28, 2021 Subjective patient with eyes open - states her stomach is hurting does endorse nausea unable to otherwise provide other history Review of Systems Review of Systems: Unobtainable due to cognitive status and Unobtainable due to reduced consciousness Physical Exam Physical Exam: gen - confused, lethargic, looks very unwell, obese mouth - dry MM nose - dried blood both nares eyes - icteric heart - RRR, s1 s2 lungs - course BS b/l abd - tender epigastric region, distended, BS+ ext - cool ext, edema present Results & Data Results & Data ([facility]) Vital Signs (Past 12 Hours) Vital Signs O2 Del Method 09/12/21 11:19 Room Air PG Care Time/CCT Total # of Minutes Spent Total Time Spent with Patient: Total time spent is greater than 50% in coordination of care (as documented) at patient's floor/unit and/or counseling patient: Coding Level of Care Code 74383 Subseq Hosp Care Lvl 1 Diagnoses Need for comfort care Palliative care patient Z51.5 CKD (chronic kidney disease) stage 5, GFR less than 15 ml/min N18.5 Autoimmune hemolytic anemia D59.10 Hypoxia R09.02 Acute on chronic diastolic (congestive) heart failure I50.33 Pancytopenia D61.818 GI bleed K92.2 Elevated troponin R77.8 Controlled type 2 diabetes mellitus with neurologic complication, with long-term current use of insulin E11.49; Z79.4 Paroxysmal atrial fibrillation I48.0 Hepatic cirrhosis K74.69 Hepatic cirrhosis type: other cirrhosis Hypothyroidism E03.9 Obstructive sleep apnea G47.33 Obesity, Class II, BMI 35-39.9 E66.9 Acute kidney injury superimposed on chronic kidney disease N17.9; N18.9 Steroid-induced myopathy G72.0; T38.0X5A (1) Hepatic cirrhosis Hepatic cirrhosis type: other cirrhosis Qualified Code(s): K74.69 - Other cirrhosis of liver
[2021-09-13] MEDS: HYDROmorphone INJ 0.5 MG/0.5 ML SYR IV PRN (01:33)
--- NOTE | 2021-09-13 03:52 | Death Pronouncement Note ---
Date of Service September 13, 2021 Pronouncement Note Admission Date Admission Date: August 28, 2021 Date and Time of Date of : 09/13/21 Time of : 03:35 PCOD Preliminary cause of : Respiratory failure with hypoxia Contributing Factors (1) Acute respiratory failure with hypoxia: (2) Cardiorenal syndrome: (3) CKD (chronic kidney disease) stage 5, GFR less than 15 ml/min: (4) Acute kidney injury superimposed on chronic kidney disease: (5) Acute on chronic diastolic (congestive) heart failure: Hospital Course Hospital Course: 71-year-old female with a complex past medical history admitted on 08/28 for a few-day history of LE weakness who was found to be in acute hypoxic respiratory failure secondary to cardiorenal syndrome and ESRD. Patient did not respond well to medical management and was declined dialysis. Patient continued to decline and was placed on comfort measures, and on 09/13/2021 at 03:35am. Family was notified. Summary Additional details: 71-year-old female with a complex past medical history admitted on 08/28 for a few-day history of LE weakness who was found to be in acute hypoxic respiratory failure secondary to cardiorenal syndrome and ESRD. Patient did not respond well to medical management and was declined dialysis. Patient continued to decline and was placed on comfort measures, and on 09/13/2021 at 03:35am. Family was notified. Additional Data Confirmation of : no pulse, no respirations, no heart sounds and pupils fixed and dilated Family: contacted Attending/PCP notified?: Yes Attending physician: Tj Mendoza Was code activated?: No Autopsy requested?: No machine cloth examiner notified?: No Organ bank notified?: No Resident Activity Tracking Resident Involvement: Resident Care Provided and Watch Leader Coverage Note Care Provided: Adult Hospital Medicine
--- NOTE | 2021-09-13 03:54 | Discharge Summary ---
Date of Service date of admission - 08/28/21 date of - 09/13/2021 at 03:35am Admission HPI Per Admitting Provider 71-year-old female who is being seen by hematology for pancytopenia. Patient has worrisome morphology of her liver for cirrhosis and likely based on fatty liver. She was recently been on steroids and also previously been on rituximab to try to help her anemia and thrombocytopenia. [facility] she has not been with much response to these however she remains on prednisone tapering dose. Her who is at the bedside says over the last 2 weeks she has had decline in her function with her legs giving out on her. She does not describe radicular pain or neuropathy to her legs but she has profound weakness. She has a low-grade temperature in the ER negative COVID and bio fire however she has a mild infiltrate at the right base although not corroborated by radiology I do believe I see this. She also has an abnormal urinalysis. In the emergency department cultures were obtained she is placed on ceftriaxone and azithromycin which will be continued. She has a history of some abdominal ascites and an ultrasound was undertaken did see if there was enough to tap but this appears that her ascitic volume is low At this point in time the patient's being admitted with possible community- acquired pneumonia, chronic prednisone use with possible myopathy, and abnormal urinalysis as a potential source of her infection. Incidentally she has elevation of her high-sensitivity troponin and nonspecific EKG changes she is on an aspirin and her EKG and troponin will be repeated in the morning Principal Diagnosis acute hypoxic respiratory failure secondary to cardiorenal syndrome, ESRD, CHF, anemia Discharge Exam Constitutional: laying motionless in hospital bed HEENT: pupils fixed and dilated CV: no appreciable heart sounds Resp: no chest rise, no breath sounds appreciated Skin: pale, cool to touch Neuro: unresponsive to verbal stimuli and sternal rub Discharge Data Allergies Allergy/AdvReac Type Severity Reaction Status Date / Time levofloxacin Allergy Intermediate rash Verified 08/28/21 07:11 enalapril Allergy Unknown DRY COUGH Verified 08/28/21 07:11 insulin detemir Allergy Unknown HIVES Verified 08/28/21 07:11 enalaprilat [From Vasotec] Allergy Unknown Verified 08/28/21 07:11 Consultations 08/29/21 08:27 Consult Gastroenterology Routine 08/29/21 12:57 Consult Hematology Routine 08/31/21 09:56 Consult Cardiology Routine 09/01/21 14:41 Consult Nephrology Routine 09/08/21 11:16 Consult Palliative Care Routine Ordered Studies 08/28/21 14:05 US abdomen ltd ascites Routine 09/01/21 13:30 CT Abd and Pelvis [CT abd pelvis wo con] Urgent 09/05/21 15:42 US venous doppler LE BI Routine Hospital Course (1) Acute respiratory failure with hypoxia: 71-year-old female with a complex past medical history admitted on 08/28 for a few-day history of LE weakness who was found to be in acute hypoxic respiratory failure secondary to cardiorenal syndrome and ESRD. Patient did not respond well to medical management and was declined dialysis. Patient continued to decline and was placed on comfort measures, and on 09/13/2021 at 03:35am. (2) Palliative care encounter: (3) Need for comfort care: (4) Autoimmune hemolytic anemia: (5) Cardiorenal syndrome: (6) CKD (chronic kidney disease) stage 5, GFR less than 15 ml/min: (7) Acute kidney injury superimposed on chronic kidney disease: (8) Acute on chronic diastolic (congestive) heart failure: (9) Hepatic cirrhosis: (10) Pulmonary emphysema: (11) Obstructive sleep apnea: (12) Hypothyroidism: (13) Hypertension: (14) Hypercholesterolemia: (15) Gastroparesis: (16) Cerebral arterial aneurysm: (17) Paroxysmal atrial fibrillation: (18) Steroid-induced myopathy: Total Time Total Time Spent Total Time Spent (In Minutes): see attending documentation Discharge Plan Discharge Items Patient Disposition: Discharge Diagnosis: Acute hypoxic respiratory failure, cardiorenal syndrome, ESRD, [id number] CHF, autoimmune hemolytic anemia, cirrhosis, IDDM2 Other Date/Time: 09/13/21 03:35 Supervising Physician Co-Signing Physician Notes Attending Attestation - I agree with the lobato components of resident physician Dr Dhiraj Almanza's summary/discharge summary of Ms Kaur. certificate completed. Tj Mendoza MD Resident Activity Tracking Resident Involvement: Resident Care Provided and Flexographic Press Operator Coverage Note Care Provided: Adult Hospital Medicine
== END 2021-09-13 05:28 | disposition expired ==
LOC: ED 05:13 → EDINP 09:08 → SUATTDRO 09:08 → 2S 10:22 → 3W 09-10 18:21
DX: D59.19 Other autoimmune hemolytic anemia; I48.0 Paroxysmal atrial fibrillation; K31.84 Gastroparesis; I50.33 Acute on chronic diastolic (congestive) heart failure; E87.3 Alkalosis; J96.21 Acute and chronic respiratory failure with hypoxia; I25.10 Atherosclerotic heart disease of native coronary artery without angina pectoris; E03.9 Hypothyroidism, unspecified; Z51.5 Encounter for palliative care; Z79.82 Long term (current) use of aspirin; F41.9 Anxiety disorder, unspecified; T38.0X5A Adverse effect of glucocorticoids and synthetic analogues, initial encounter; K92.2 Gastrointestinal hemorrhage, unspecified; D62 Acute posthemorrhagic anemia; Z68.35 Body mass index [BMI] 35.0-35.9, adult; G72.0 Drug-induced myopathy; G47.33 Obstructive sleep apnea (adult) (pediatric); I21.A1 Myocardial infarction type 2; E11.22 Type 2 diabetes mellitus with diabetic chronic kidney disease; E11.42 Type 2 diabetes mellitus with diabetic polyneuropathy; D59.10 Autoimmune hemolytic anemia, unspecified; Z88.8 Allergy status to other drugs, medicaments and biological substances; B37.0 Candidal stomatitis; Z79.890 Hormone replacement therapy; Z79.52 Long term (current) use of systemic steroids; I27.81 Cor pulmonale (chronic); Q28.2 Arteriovenous malformation of cerebral vessels; Z79.01 Long term (current) use of anticoagulants; N18.5 Chronic kidney disease, stage 5; D69.6 Thrombocytopenia, unspecified; K74.60 Unspecified cirrhosis of liver; N17.9 Acute kidney failure, unspecified; J43.9 Emphysema, unspecified; Z88.1 Allergy status to other antibiotic agents; R18.8 Other ascites; D61.818 Other pancytopenia; Z95.1 Presence of aortocoronary bypass graft; Z66 Do not resuscitate; I13.2 Hypertensive heart and chronic kidney disease with heart failure and with stage 5 chronic kidney disease, or end stage renal disease; E66.9 Obesity, unspecified; Z79.4 Long term (current) use of insulin; K75.81 Nonalcoholic steatohepatitis (NASH)